=== PATIENT | female | born 1980 | race African-American/Black ===

== ENCOUNTER 2024-12-12 14:42 | Outpatient (REF) | payer MEDICARE, MEDICAID, SELFPAY ==
--- OUTSIDE RECORDS SUMMARY | 2024-12-12 14:52 | XMS_ITS | Encounter Summary ---
Author Organization [employer] Address [address] [place] [address] 7 [place] [address] Care Team Providers Care Complaint Evaluation Officer Name Role Phone JaneneSoco chavez JADE Primary Care Provider [phone] Reason for Visit * Reason Onset Date Comments CHARTPREP 12/11/2024 Encounter Details Date Type Department Care Team ([facility] st Contact Info) Description 12/11/2024 Telephone [facility] MEDICINE [address] [place], [place] [id number] Sraa Camacho [place] CHARTPREP Social History Tobacco Use Types Packs/Day Years Used Date Smoking Tobacco: Never Smokeless Tobacco: Never Depression Answer Date Recorded Patient Health Questionnaire-9 Score 12 10/06/2024 Patient Health Questionnaire-9 Score 12 10/06/2024 Last PHQ-9: Questionnaire Data Not on file 0 10/06/2024 Housing Stability Answer Date Recorded What is your housing situation today? I have get panchal 09/26/[address] you li ve. Do you have problems with any of the following? None of the above 09/26/2024 Food Insecurity Answer Date Recorded Within the past 12 months, y ou worried that your food would run out before you got money to buy more: Never True 09/26/2024 Within the past 12 months,th e food you bought just didn't last and you didn't have enough money to get more: Never True Transportation Answer Date Recorded In the past 12 months, has l ack of transportation kept you from medical appts, meetings, work or from getting things needed for daily living? No 09/26/2024 Utilities Answer Date Recorded In the past 12 months, has t he electric, gas, oil or water company threatened to shut off services in your home? No 09/26/2024 Depression Answer Date Recorded Patient Health Questionnaire-2 Score 4 10/06/2024 Internet Access Answer Date Recorded Internet Access Q1 Yes 09/26/2024 Internet Access Q2 Not on file 09/26/2024 Comments Unknown Sex and Gender Information Value Date Recorded Sex Assigned at Female 06/27/2023 2:08 PM EST Legal Sex Female 2:07 PM EST Gender Identity Female 08/28/2024 3:49 PM EDT Sexual Orientation Don't know 08/28/2024 3: 50 PM EDT documented as of this encounter Miscellaneous Notes * Telephone Encounter - Sara Camacho [place] - 12/11/2024 4:09 PM EDT Chart Prep Labs: done Images: done except 12/01/24 BI mammogram and XR ribs Referrals: Physiatry Office: [facility] [address] [facility] [address] Tel. [phone] Fax. [phone]. November 17 was pt first evaluation appt, next appt will be on12/15/24 @ 3:00pm Allergy Office: [facility] Allergy Dr. Charles (NPI# [id number]) [address] [facility] [address] Tel. [phone] Fax. [phone]. Pt needs to call allergy office to scheduled appointment. Vaccines due: Covid and Hep B Screenings: mammogram, eye exam, and foot exam Overdue care gaps: Glucose documented in this encounter Plan of Treatment Upcoming Encounters Date Type Department Care Team (Late st Contact Info) Description 02/17/2025 1:00 PM EDT Procedure Visit [facility] MEDICINE [address] [place] [address] Soco Alexis NP [address] [place] [address] documented as of this encounter Visit Diagnoses Not on filedocumented in this encounter Additional Health Concerns Assessment Noted Time PHQ-9 Depression Total Score: 12 025 3:49 PM EDT documented as of this encounter Care Teams Complaint Evaluation Officer Relationship Specialty Start Date End Date Soco Alexis NP [address] [place] [address] PCP - General Family Medicine 10/06/24 documented as of this encounter
[2024-12-12 16:16] LABS: MANUAL DIFF FLAG NO
[2024-12-12 16:19] LABS: Hematocrit 33.5 % (37.0-47.0); Hemoglobin 10.9 g/dl (12.0-16.0); Imm Gran Abs Auto 0.02 X10*3/uL (0.00-0.03); Imm Gran Pct Auto 0.4 % (0.0-0.4); Lymphocytes Absolute Auto 1.2 X10*3/uL (1.2-4.9); Mean Corpuscular HGB Conc 32.5 g/dl (31.0-35.0); Mean Corpuscular Hemoglobin 31.3 pg (27.0-33.0); Mean Corpuscular Volume 96.3 fL (80.0-98.0); NRBC Abs Auto 0.000 X10*3/uL (0.0-0.012); NRBC Pct Auto 0.0 /100WBC (0.0-0.2); Platelet Count 166 X10*3/uL (160-400); Red Blood Count 3.48 X10*6/uL (4.20-5.50); White Blood Count 4.7 X10*3/uL (4.8-10.8)
[2024-12-12 16:28] LABS: B Type Natriuretic Peptide 15 pg/mL (<100)
[2024-12-12 17:01] LABS: Alanine Aminotransferase 57 U/L (0-31); Albumin Level 4.5 g/dL (3.5-5.0); Alkaline Phosphatase 103 U/L (39-117); Anion Gap 12 (12-20); Aspartate Amino Transferase 48 U/L (5-31); Blood Urea Nitrogen 11 mg/dL (9-16); Calcium 9.9 mg/dL (8.4-10.2); Carbon Dioxide 28 mmol/L (22-29); Chloride 105 mmol/L (96-108); Estimated Glomerular Filt Rate 55; Potassium 3.6 mmol/L (3.3-5.1); Sodium 141 mmol/L (135-145); Total Protein 7.8 g/dL (6.5-8.0)
== END 2024-12-12 14:43 | disposition home or self-care (01) ==
LOC: HO.HHCL 14:42
PROVIDERS: PCP Nurse Practitioner Family
DX: I89.0 Lymphedema, not elsewhere classified (principal); R06.02 Shortness of breath
CPT/HCPCS: 36415; 80053; 83880; 85025

== ENCOUNTER 2025-02-18 13:34 | Outpatient (REF) | payer MEDICARE, MEDICAID, SELFPAY ==
--- OUTSIDE RECORDS SUMMARY | 2025-02-12 08:09 | XMS_ITS | Encounter Summary ---
Author Organization [facility] Address [address] [place] [address] Phone Care Team Providers Care Wet Milling Wheel Operator Name Role Phone Keily Maldonado EMISSION TECHNICIAN Unavailable Nico Patel MD Unavailable Stuart Saunders MD Unavailable [phone] Ibis Wilson RN Unavailable Luisa Vega Unavailable [phone] Moni Argueta RN Unavailable [phone] Soco Alexis NP Primary Care Provider [phone] Reason for Referral * Outpatient Procedure - Closed Specialty Diagnoses / Procedures Referred By Contac t Referred To Contact Diagnoses Localized edema 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 Procedures Adult Echo TTE Krysta Villagomez FNP [address] [facility] [address] [place] [address] Phone: tel: fax: [email or web address] Referral ID Status Reason Start Date Expiration Date Visits Re quested Visits Authorized [id number] Closed 01/01/2025 01/01/2026 1 1 Reason for Visit * Outpatient Procedure - Closed Specialty Diagnoses / Procedures Referred By Mike quesada Referred To Contact Diagnoses Localized edema 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 Procedures Adult Echo TTE Krysta Villagomez FNP [address] [place] [address] Phone: tel: fax: [email or web address] Referral ID Status Reason Start Date Expiration Date Visits Re quested Visits Authorized [id number] Closed 01/01/2025 01/01/2026 1 1 Encounter Details Date Type Department Care Team (Latest Contact Info) Description 02/12/2025 8:09 AM EDT - 02/12/2025 11:59 PM EDT Hospital Encounter [facility] [address] [place] [address] Krysta Villagomez FNP [address] [place] [address] [email or web address] Discharge Disposition: Home or Self Care Social History Tobacco Use Types Packs/Day Years Used Date Smoking Tobacco: Former Cigarettes 1 992 - 03/07/2023 Passive Smoke Exposure: Past Smokeless Tobacco: Never Alcohol Use Standard Drinks/Week Comments Not Currently 0 (1 standard drink = 0.6 oz pure alcohol) cannot currently drink with illness Home Health Assessment: Transportation Answer Date Recorded Lack of Transportation (Medical) No 08/14/2022 Lack of Transportation (Non-Medical) No 08/14/2022 Patient Unable or Declines to Respond No 08/14/2022 Education Answer Date Recorded Are you interested in more education? Not on pato e 08/31/2022 Are you concerned about learning? Not on file 08/31/2022 No 08/31/2022 No 08/31/2022 Food Answer Date Recorded Within the past 6 months we worried whether our food would run out before we got money to buy more. Never True 10/16/2024 Within the past 6 months the food we bought just didn't last and we didn't have enough money to get more. Never True Residential Stability Answer Date Recor ded What is your housing situation today? I have get panchal 10/16/2024 How many times have you move d in the past 12 months? Zero (I did not move) 10/16/2024 Paying for Meds Answer Date Recorded Do you have trouble paying for medicines? No 10/16/2024 Paying Utility Bills Answer Date Record ed Do you have trouble paying your heating or elect ricity bill? No 10/16/2024 Transportation Answer Date Recorded Has the lack of transportati on kept you from medical appointments or from getting medications? No 10/16/2024 Digital Access Answer Date Recorded No 10/16/2024 Yes 10/16/2024 Do you have reliable internet access at home? Ye s 10/16/2024 Do you have a device (e.g., phone, tablet, computer) with a working camera? Yes 10/16/2024 Intimate Partner Violence Answer Date R ecorded Are you denied basic needs s uch as food, clothing, or medical care? No 12/17/2024 In the past 12 months have y ou been in a relationship with a person who hurts, threatens, or tries to control you? No 12/17/2024 Are you denied basic needs s uch as food, clothing, or medical care? No 12/17/2024 In the past 12 months have y ou been in a relationship with a person who hurts, threatens, or tries to control you? 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 Please take your temperature beforehand & contact your BMT team if temp > or = 100.4F 10/17/2024 albuterol 2.5 mg /3 mL (0.083 %) nebulizer solution Take 3 mL (2.5 mg total) by nebulization every 6 (six) hours as needed for wheezing or shortness of breath/dyspnea. 120 mL 1 06/24/2024 albuterol 90 mcg/actuation inhaler Inhale 2 puffs into the lungs every 6 (six) hours as needed for wheezing. 8 g 10/21/2024 ALPRAZolam (XANAX) 2 MG tablet Take 1 tablet (2 mg total) by mouth 2 (two) times a day. May take 6 mg/day, typically takes 4 mg nightly an additional 2 mg in the daytime. 09/19/2022 belumosudil (REZUROCK) 200 mg tablet Take 1 tablet (200 mg total) by mouth 2 (two) times a day. Take with food around the same time each day. Swallow tablet whole do not cut, crush or chew with a glass of water. 60 tablet 11 02/05/2025 benzonatate (TESSALON) 100 MG capsule Take 1 capsule (100 mg total) by mouth 3 (three) times a day as needed for cough. 30 capsule 10/16/2024 budesonide (ENTOCORT EC) 3 mg 24 hr capsuleIndication s:GVHD (graft versus host disease) Take 2 capsules (6 mg total) by mouth every morning. Take 1 capsule whole and 1 capsule opened and dissolved in a small amount of water. 180 capsule 01/01/2025 dextroamphetamine -amphetamine (ADDERALL) 10 mg Tab tablet Take 10 mg by mouth 2 (two) times a day. 10/10/2024 dextroamphetamine -amphetamine (ADDERALL) 30 mg Tab tablet Take 1 tablet (30 mg total) by mouth 2 (two) times a day. 10/16/2024 doxazosin (CARDURA) 1 MG tablet Take 3 mg by mouth nightly at bedtime. fluconazole (DIFLUCAN) 200 MG tabletIndications :S/P allogeneic bone marrow transplant,Graft vs host disease,T-cell lymphoma Take 1 tablet (200 mg total) by mouth daily. 30 tablet 10/16/2024 fluticasone propion-salmetero L (ADVAIR DISKUS) 250-50 mcg/dose DISKUS Inhale 250 mcg/actuation of fluticasone into the lungs 2 (two) times a day. furosemide (LASIX) 20 MG tablet Take 1 tablet (20 mg total) by mouth daily. 30 tablet 1 12/10/2024 gabapentin (NEURONTIN) 300 MG capsule Take 1 capsule (300 mg total) by mouth 2 (two) times a day. 60 capsule 5 01/30/2025 guaiFENesin (ROBITUSSIN) 100 mg/5 mL syrup Take 10 mL (200 mg total) by mouth every 4 (four) hours as needed for congestion or cough. 07/26/2024 hydrOXYzine (ATARAX) 50 MG tablet Take 2 tablets (100 mg total) by mouth nightly at bedtime. 60 tablet 10/16/2024 ketoconazole 2 % cream APPLY TOPICALLY ONCE PER DAY FOR 14 DAYS 12/01/2024 labetaloL (TRANDATE) 100 MG tablet TAKE 1 TABLET(100 MG) BY MOUTH TWICE DAILY 60 tablet 2 07/20/2024 lumateperone (CAPLYTA) 21 mg capsule Take 2 capsules (42 mg total) by mouth daily. 06/10/2024 nortriptyline (PAMELOR) 25 MG capsuleIndication s:Nausea,Function al diarrhea Take 1 capsule (25 mg total) by mouth nightly at bedtime. 90 capsule 11/18/2024 nystatin cream Apply topically 2 (two) times a day. 30 g 12/16/2024 omeprazole (PRILOSEC) 40 MG capsule Take 1 capsule (40 mg total) by mouth daily. 06/10/2024 oxyCODONE 5 MG immediate release tablet 12/01/2024 prochlorperazine (COMPAZINE) 10 MG tabletIndications :S/P allogeneic bone marrow transplant,Graft vs host disease,T-cell lymphoma Take 0.5-1 tablets (5-10 mg total) by mouth every 6 (six) hours as needed (nausea, vomiting). 10/17/2024 ruxolitinib (JAKAFI) 5 MG tablet Take 1 tablet (5 mg total) by mouth 2 (two) times a day. 60 tablet 11 09/11/2024 sulfamethoxazole- trimethoprim (BACTRIM,SEPTRA) 400-80 mg per tablet Take 1 tablet (80 mg of trimethoprim total) by mouth daily. 30 tablet 11 08/29/2024 tirzepatide, weight loss, (ZEPBOUND) 7.5 mg/0.5 mL subcutaneous pen Inject 0.5 mL (7.5 mg total) under the skin once a week for 12 doses. 2 mL 2 02/12/2025 valACYclovir (VALTREX) 1000 MG tablet Take 1 tablet (1,000 mg total) by mouth daily. 90 tablet 3 02/28/2024 documented as of this encounter Plan of Treatment Upcoming Encounters Date Type Department Care Team (Late st Contact Info) Description 02/17/2025 Procedure Pass [address] [id number] 03/16/2025 8:00 AM EST Telemedicine [facility] [address] [place] [address], [address], [address] [place] [address] Krysta Villagomez FNP [address] [place] [address] [address] [place] [address] [email or web address] 10/19/2025 12:30 PM EDT Appointment [address] [address] Soco Alexis NP [address] [place] [address] documented as of this encounter Procedures Procedure Name Priority Date/Time Associated Diagnosis Comments TTE COMPREHENSIVE Routine 02/12/2025 8:5 6 AM EDT Localized edema 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 documented in this encounter Results * TTE COMPREHENSIVE (02/12/2025 8:56 AM EDT) Body Surface Area 2.27 m2 Height 170 cm Weight 119 kg Systolic BP 125 mmHg Diastolic BP 75 mmHg Left Atrium Dimension Anterior-Posterior 42 15 - 40 mm Aortic Valve Mean Gradient 6 mmHg Aortic Valve Time Velocity Integral 269.0 mm Aortic Valve Peak Velocity 1.6 m/s Aortic Valve Peak Gradient 10 mmHg Aortic Arch Diameter 29 mm Aortic Sinus Diameter 28 <40 mm Ascending Aorta Diameter 28 <36 mm Inferior Vena Cava Diameter 20 <21 mm Interventricular Septum Thickness 10 6 - 11 mm Left Ventricle Internal Diameter End Diastole 48 37 - 52 mm Left Ventricle Internal Diameter End Systole 31 <35 mm Left Ventricular Outflow Tract Diameter 19.0 mm LVOT VTI REST 190.0 mm Left Ventricular Outflow Tract Velocity 1.2 m/s Left Ventricular Outflow Tract Gradient at Rest 5 mmHg Left Ventricular Posterior Wall Thickness 9 6 - 11 mm Left Ventricle Ea Lateral Wave Speed 15.0 cm/s Left Ventricle Ea Septal Wave Speed 7.1 cm/s Ejection Fraction 64 50 - 75 Percent Left Ventricle A Wave Speed 67.3 cm/s Left Ventricle E Wave Speed 61.2 cm/s Pulmonary Valve Peak Velocity 1.8 m/s Pulmonary Valve Peak Gradient 12 mmHg Right Ventricle Basal Diameter 34 25 - 41 mm Raw LV EF% 58 % MV E/E' Tissue Velocity Lateral 4.08 Relative Wall Thickness 0.38 0.22 - 0.42 Left Ventricle indexed to BSA 70.0 g/m2 MV E/A ratio 0.9 MV E/e' septal 8.62 Left Ventricle E/e' Average 6.3 Aortic Valve Prosthetic Peak Gradient 10 mmHg Aortic Valve Prosthetic Mean Gradient 6 mmHg Aortic Valve Sinus Index by BSA 12 mm/m2 Aorta Sinus Index by Height 1.65 cm/m Aorta Sinus CSA index by Height 3.62 cm2/m Ascending Aorta Index 12 mm/m2 Asc Aorta CSA Index by Height 3.62 cm2/m Pulmonic Valve Prosthetic Peak Gradient 12 mmHg MGB CV AV DIMENSIONLESS INDEX (PEAK) - STRESS ECHO DOBUT - REST 0.75 Ascending Aorta Index 12 mm Aortic Sinus Index 12 mm Ascending Aorta Diameter 12 mm Aortic Valve Sinus Index 1 12 19 - 27 mm AO ASC DIAM BSA INDEX 12.33 Echo E/Ea 8.62 Left Atrial Volume Index 12 16 - 34 mL/m2 GLS -17.5 % Right Ventricle TAPSE 25 >=17 mm Right Ventricle Pulse Doppler S Wave 14.6 >=9.5 cm/s Mitral Valve Deceleration Time 183 ms Left Atrial Volume 27 mL Left Atrial Volume Index by Height 16 mL/m Right Atrium Area 10 cm2 Right Atrium Area index 4 cm2/m2 Anatomical Region Laterality Modality Heart Ultrasound Narrative 02/12/2025 1:38 PM EDT Images from the original result were not included. Normal LV size and function EF 60 to 65%. Normal diastolic function for age. Normal RV size and function. No significant valvular heart disease is seen. No cardiac cause for edema seen on this study. Left Ventricle The left ventricle is normal in size. There is normal wall thickness. There is normal left ventricular systolic function. The LV ejection fraction is 64% (calculated via the single dimension method). Average global longitudinal strain (GLS) is --17.5%. LV diastolic function appears within normal limits for age. The E wave velocity is 61.2 cm/s. The A wave velocity is 67.3 cm/s. The E/A ratio is 0.9. The E/e' septal ratio is 8.62. The E/e' lateral ratio is 4.08. The average E/e' ratio is 6.3. The MV deceleration time is 183 ms. Right Ventricle The right ventricle is normal in size. There is normal wall thickness. There is normal right ventricular systolic function. TAPSE is 25 mm. RV S' wave is 14.6 cm/s. Left Atrium The left atrium is normal in size. The left atrial volume index by BSA is 12 mL/m2. There are normal flow patterns in the pulmonary vein. Right Atrium The right atrium is normal in size. The IVC is normal in size. Mitral Valve The mitral valve appears normal. There is no mitral stenosis. There is no mitral regurgitation. Tricuspid Valve The tricuspid valve appears normal. There is no tricuspid stenosis. There is trace tricuspid regurgitation. RV systolic pressure could not be estimated due to insufficient TR Doppler envelope. Aortic Valve The aortic valve is tricuspid. There is no aortic stenosis. There is no aortic regurgitation. The visualized portions of the thoracic aorta appear normal in size. The aortic sinus diameter is 28 mm. The ascending aortic diameter is 28 mm. Pulmonic Valve The pulmonic valve appears normal. There is no pulmonic stenosis. There is trace pulmonic regurgitation. The pulmonary artery is normal. Pericardium The pericardium appears normal. General Findings The image quality was good (2). Strain performed. Technique(s) used in the evaluation: Color flow Doppler and Spectral Doppler. The predominant rhythm during the study was sinus. Comparison Findings Compared to prior TTE on 06/07/2023, IAS/IVS The interatrial septum appears normal. The interventricular septum appears normal. 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 Complications of transplanted organ, unspecified site documented in this encounter Additional Health Concerns Assessment Noted Time PHQ-2 Depression Total Score: 2 05/17/19 23 10:19 AM EST documented as of this encounter Care Teams Wet Milling Wheel Operator Relationship Specialty Start Date End Date Soco Alexis NP [address] [place] [address] PCP - General Nurse Practitioner 12/02/24 Keily Maldonado CNP [address] [place] [address] [email or web address] Nurse Practitioner Medical Oncology 02/16/22 Nico Patel MD [address] [place] [address] [address], [place] [address] [email or web address] Primary Oncologist Hematology 07/13/22 Stuart Saunders MD [address] [place] [address] Primary Oncologist Medical Oncology 01/22/23 Ibis Wilson, OLIVIA [address] [place] [id number] Primary Infusion Nurse 08/14/23 Luisa Vega [address] [place] [phone] Music Therapist 07/25/24 Moni Argueta RN [address] [place] [address] [email or web address] Nurse Navigator 08/15/24 documented as of this encounter Additional Source Comments The information contained in this document represents components of the legal health record. It is not the complete legal health record.[facility]
--- OUTSIDE RECORDS SUMMARY | 2025-02-17 13:00 | XMS_ITS | Encounter Summary ---
Author Organization [employer] Address [address] [place] [id number] Care Team Providers Care Resident In Diagnostic Radiology Name Role Phone Soco Alexis NP Primary Care Provider Reason for Referral * Imaging (Routine) - Authorized Specialty Diagnoses / Procedures Referred By Mike quesada Referred To Contact Radiology Diagnoses Breast screening Procedures BI Mammogram Screening Tomosynthesis Bilateral Soco Alexis NP [address] [place] [address] Phone: tel: fax: [facility] [address] Phone: tel: fax: Referral ID Status Reason Start Date Expiration Date V isits Requested Visits Authorized [id number] Authorized 02/17/2025 02/17/2026 1 1 * Consultation (Routine) - Pending Review Specialty Diagnoses / Procedures Referred By Mike quesada Referred To Contact Psychology Diagnoses Memory impairment Soco Alexis NP [address] [place] [address] Phone: tel: fax: Referral ID Status Reason Start Date Expiration Date Visits Requested Visits Authorized [id number] Pending Review Specialty Services Required 08/18/2026 1 1 * Consultation (Routine) - Authorized Specialty Diagnoses / Procedures Referred By Mike quesada Referred To Contact Neurology Diagnoses Memory impairment Soco Alexis NP [address] [place] [address] Phone: tel: fax: [facility] [address] [place], [place] Phone: tel: fax: Referral ID Status Reason Start Date Expiration Date Visits Requested Visits Authorized [id number] Authorized Specialty Services Required 02/17/2026 1 1 Encounter Details Date Type Department Care Team (Latest Contact Info) Description 02/17/2025 1:00 PM EDT Procedure Visit [facility] [address] [place] [address] Soco Alexis NP [address] [place] [address] Cervical cancer screening (Primary Dx); Memory impairment; Menopausal syndrome (hot flashes); 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); T-cell lymphoma (CMS/HCC) (HCC); Breast screening Social History Tobacco Use Types Packs/Day Years Used Date Smoking Tobacco: Former Cigarettes Passive Smoke Exposure: Past Smokeless Tobacco: Former Tobacco Cessation:Counseling Given: Not Answered Depression Answer Date Recorded Patient Health Questionnaire-9 [...] PM EDT documented as of this encounter Last Filed Vital Signs Vital Sign Reading Time Taken Comments Blood Pressure 130/88 02/17/2025 1:09 PM EDT Pulse 105 02/17/2025 1:09 PM EDT Temperature 36.5 C (97.7 F) 02/17/2025 1:09 PM EDT Respiratory Rate 18 02/17/2025 1:09 PM EDT Oxygen Saturation 99% 02/17/2025 1:09 PM EDT Inhaled Oxygen Concentration - - Weight 113 kg (249 lb 6 oz) 02/17/2025 1:09 PM E DT Height 167.6 cm (5' 6 ) 02/17/2025 1:09 PM EDT Body Mass Index 40.25 02/17/2025 1:09 PM EDT documented in this encounter Progress Notes * Soco Alexis NP - 02/17/2025 1:00 PM EDT Otilia Moreno is a 44 y.o. female presenting for follow up for the following conditions: - Otilia Moreno, 44-year-old female - Ongoing systemic treatment for GDH planned, awaiting infusion every 2 weeks at [facility], not yet started - History of normal Pap smear at last exam - No vaginal bleeding - No new sexual partners - Perimenopausal symptoms: amenorrhea, hot flashes, mood irritability - Severe body pain, predominantly in legs, described as aching, burning, and stabbing, worse at night and when lying down, less when standing - Restless legs at night, frequent movement due to pain - Uses gabapentin for pain, reports minimal relief - Uses Icy Hot spray for pain relief - History of hospitalization with increased leg pain during illness - Physical therapy for back, attends weekly, uncertain benefit - History of falling and weakness, physical therapist 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 Musculoskeletal: Positive for arthralgias, back pain and myalgias. Psychiatric/Behavioral: Positive for confusion, decreased concentration, dysphoric mood and sleep disturbance. The patient is nervous/anxious. BP 130/88 (BP Location: Right arm, Patient Position: Sitting, BP Cuff Size: Large adult) Pulse 105 Temp 97.7 ??F (36.5 ??C) (Oral) Resp 18 Ht 5' 6 (1.676 m) Wt 249 lb 6 oz (113 kg) BMI 40.25 kg/m?? Physical Exam Vitals reviewed. Constitutional: Appearance: She is obese. HENT: Head: Normocephalic and atraumatic. Nose: Nose normal. Eyes: Conjunctiva/sclera: Conjunctivae normal. Cardiovascular: Rate and Rhythm: Normal rate and regular rhythm. Pulmonary: Effort: Pulmonary effort is normal. Breath sounds: Normal breath sounds. Genitourinary: Vagina: No signs of injury and foreign body. Bleeding present. No erythema. Cervix: Normal. No discharge or erythema. Musculoskeletal: Cervical back: Normal range of motion and neck supple. Neurological: General: No focal deficit present. Mental Status: She is alert. - CARDIOVASCULAR: Normotensive. - SKIN: Hypopigmented areas on the edges, no concern, no masses, no lesions. - GENITOURINARY: Vaginal mucosa appears healthy and well-hydrated; cervix looks healthy, no masses,no lesions. Office Visit on 12/12/2024 Component Date Value B Type Natriuretic Pepti* 12/12/2024 15 Sodium 12/12/2024 141 Potassium 12/12/2024 3.6 Chloride 12/12/2024 105 Carbon Dioxide 12/12/2024 28 Anion Gap 12/12/2024 12 Urea Nitrogen (BUN) 12/12/2024 11 Creatinine, Serum 12/12/2024 1.09 Estimated Glomerular Joel* 12/12/2024 55 Glucose 12/12/2024 99 Calcium 12/12/2024 9.9 Bilirubin, Total 12/12/2024 0.3 Aspartate Amino Transfer* 12/12/2024 48 (H) Alanine Aminotransferase 12/12/2024 57 (H) Total Protein 12/12/2024 7.8 Albumin Level 12/12/2024 4.5 Alkaline Phosphatase 12/12/2024 103 White Blood Count 12/12/2024 4.7 (L) Red Blood Count 12/12/2024 3.48 (L) Hemoglobin 12/12/2024 10.9 (L) Hematocrit 12/12/2024 33.5 (L) Mean Corpuscular Volume 12/12/2024 96.3 Mean Corpuscular Hemoglo* 12/12/2024 31.3 Mean Corpuscular HGB Conc 12/12/2024 32.5 Red Cell Distribution Wi* 12/12/2024 14.1 Platelet Count 12/12/2024 166 Mean Platelet Volume 12/12/2024 9.8 Neutrophils Percent Auto 12/12/2024 57.8 Imm Gran Pct Auto 12/12/2024 0.4 Lymphocytes Percent Auto 12/12/2024 24.5 Monocytes Percent Auto 12/12/2024 15.0 (H) Eosinophils Percent Auto 12/12/2024 2.1 Basophils Percent Auto 12/12/2024 0.2 NRBC Pct Auto 12/12/2024 0.0 Neutrophils Absolute Auto 12/12/2024 2.7 Imm Gran Abs Auto 12/12/2024 0.02 Lymphocytes Absolute Au* 12/12/2024 1.2 Monocytes Absolute Auto 12/12/2024 0.7 Eosinophils Absolute Auto 12/12/2024 0.1 Basophils Absolute Auto 12/12/2024 0.0 NRBC Abs Auto 12/12/2024 0.000 Office Visit on 12/01/2024 Component Date Value Glucose Blood, POC 12/01/2024 170 QC Media Lot # 12/01/2024 [id number] Lot# Expiration Date 12/01/2024 103,025 Hemoglobin A1C 12/01/2024 5.7 QC Media Lot # 12/01/2024 [id number] Lot# Expiration Date 12/01/2024 10,890 Assessment & Plan Cervical cancer screening Orders: HPV High Risk with Reflex to Subtypes Pap Smear Memory impairment Orders: Referral to Neurology; Future Referral to Neuropsychology; Future Menopausal syndrome (hot flashes) 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 Pap smear obtained forroutine screening. - Pap smear sent to [facility] for analysis. Patient informed results typically take one to two weeks. - Risks and side effects: Possible mild vaginal spotting post-exam discussed. Memory impairment: - Memory impairment is multifactorial, likely related to chemotherapy, menopause, prior diagnosis of ADD, and trauma. - Diagnosis of memory impairment documented. Referral to neurology and cognitive neurology placed for further evaluation. Patient informed both teams will contact for scheduling. Menopausal symptoms (hot flashes, mood changes): - Menopausal symptoms including hot flashes and mood changes discussed. Non- hormonal and hormonal options reviewed. Patient cleared by oncology team for hormone therapy. - Prescribed low-dose combined oral contraceptive pill for management of hot flashes and mood symptoms. Advised to monitor for side effects and discontinue if mental health worsens or intolerable side effects occur. Alternative options discussed if needed. - Risks and side effects: Discussed risk of thromboembolism with estrogen- containing therapy, especially in patients over 35 who smoke or have migraine with aura. Discussed possible side effects including breast tenderness, nausea, and spotting. Bony pain and restless legs: - Bony pain and restless legs likely multifactorial; gabapentin continued for neuropathic pain. Anemia present but improved; magnesium normal. Pathologic bone changes possible due to prior fracture and oncologic history. - Physical therapy continued. Pain management services established. Offered bone density test; patient informed test may not alter management. Iron levels to be monitored as low iron may contribute to restless legs. Mammogram referral: - Mammogram referral discussed; patient prefers [facility] or [facility] over [facility]. - Referral for mammogram to be rerouted to [facility]. Team to contact patient regarding scheduling. Prescription - Combined oral contraceptive pill, low-dose, daily Risks: estrogen-related thrombosis in patients over 35 or with clotting history Side effects: breast tenderness, nausea, spotting Appointments - Referral for mammogram to [facility] (or [facility]) - Referral to neurology ([facility] or [facility]) - Referral to cognitive neurology specialist Based on our discussion, I have outlined the following instructions for you: - Your Pap smear sample has been sent for testing. You should expect the results in one to two weeks. - Be aware that you may have mild vaginal spotting after your exam or when taking your prescribed pill. Other possible side effects of your pill include breast tenderness and nausea. If you notice your mood getting worse or have side effects that are hard to handle, stop taking the pill and let your care team know. There is a small risk of blood clots with this pill, especially if you are over 35, smoke, or have certain types of migraines. - Keep taking gabapentin as you have been for nerve pain. - Continue with your physical therapy exercises. - Pain management services are in place to help you manage your pain. - You were offered a bone density test, but this test may not change your treatment plan. - Your iron levels will be checked, since low iron can make restless legs worse. Next appointment(s): - Referral for mammogram to [facility] (or [facility]) - Referral to neurology ([facility] or [facility]) - Referral to cognitive neurology specialist Thank you again for your visit, and we look forward to supporting you in your journey to better health. This note was drafted using Ambient (AI) technology. 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[facility]) Chest pain Depression with anxiety Diarrhea HUNG (dyspnea on exertion) Dysuria Episodic headache Febrile neutropenia (CMS/HCC) (CMS/HCC) Gastroesophageal reflux disease without esophagitis Herpes simplex History of uveitis HTN (hypertension) Hypoxia Chronic health problem Infectious disease Influenza B Labial lesion Menopausal vasomotor syndrome Mild intermittent asthma without complication 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) Pneumonia Pulmonary nodules Sacral insufficiency fracture with delayed healing 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[facility]) Severe sepsis ([facility]) Steroid dependent for adrenal supression T-cell lymphoma (CMS/HCC) (HCC) Transaminitis Vitamin D insufficiency Insomnia Depression Cancer (CMS/HCC) (HCC) Transplant Closed burst fracture of lumbar vertebra with delayed healing Cytopenia Type 2 diabetes mellitus with hyperglycemia, without long-term current use of insulin (HCC) Asthma Acute pain of right shoulder Chest pain varying with breathing Intertrigo Breast screening Menopausal syndrome (hot flashes) Generalized edema Encounter for immunization Impetigo Cervical cancer screening Memory impairment documented in this encounter Miscellaneous Notes * Assessment & Plan Note - Soco Alexis NP - 02/17/2025 1:00 PM EDTAssociated Problem(s): Cervical cancer screening Orders: HPV High Risk with Reflex to Subtypes Pap Smear * Assessment & Plan Note - Soco Alexis NP - 02/17/2025 1:00 PM EDTAssociated Problem(s): Memory impairment Orders: Referral to Neurology; Future Referral to Neuropsychology; Future * Assessment & Plan Note - Soco Alexis NP - 02/17/2025 1:00 PM EDTAssociated Problem(s): Menopausal syndrome (hot flashes) * Assessment & Plan Note - Soco Alexis NP - 02/17/2025 1:00 PM EDTAssociated Problem(s): 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) * Assessment & Plan Note - Soco Alexis NP - 02/17/2025 1:00 PM EDTAssociated Problem(s): T-cell lymphoma (CMS/HCC) (HCC) * Assessment & Plan Note - Soco Alexis NP - 02/17/2025 1:00 PM EDTAssociated Problem(s): Breast screening documented in this encounter Plan of Treatment Upcoming Encounters Date Type Department Care Team (Late st Contact Info) Description 03/02/2025 3:30 PM EDT Office Visit [facility] [address] [place] [address] Soco Alexis NP [address] [place] [address] Scheduled Orders Name Type Priority Associated Diagnoses Order Schedule HPV High Risk with Reflex to Subtypes Lab Routine Cervical cancer screening Ordered: 02/17/2025 Pap Smear Pathology and Cytology Routine Cervical cancer screening Ordered: 02/17/2025 BI Mammogram Screening Tomosynthesis Bilateral Imaging Routine Breast screening Expected: 02/17/2025, Expires: 04/19/2026 Scheduled Referrals Name Type Priority Associated Diagnoses Order Schedule Referral to Neurology Outpatient Referral Routine Memory impairment Expected: 02/17/2025 (Approximate), Expires: 02/17/2026 Referral to Neuropsychology Outpatient Referral Routine Memory impairment Expected: 02/17/2025 (Approximate), Expires: 08/17/2026 documented as of this encounter Visit Diagnoses Diagnosis Cervical cancer screening- Primary Screening for malignant neoplasm of the cervix Memory impairment Memory loss Menopausal syndrome (hot flashes) Symptomatic menopausal or female climacteric states 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
--- OUTSIDE RECORDS SUMMARY | 2025-02-18 17:15 | XMS_ITS | Encounter Summary ---
Author Organization [facility] Address [address] [place] [address] Phone Care Team Providers Care Sisal Picker Name Role Phone Soco Alexis DOUBLE END SEWER Unavailable [phone] Guru Glynn MD Unavailable [phone] Soco Alexis DOUBLE END SEWER Primary Care Provider Keily Maldonado SENIOR APPLICATION PROGRAMMER Unavailable Cassi CarpenterC Unavailable pnugen Azra South RN Unavailable Nico Patel MD Unavailable Stuart Saunders MD Unavailable [phone] Glenna Granados TRUCK GUARD Unavailable Rachana Otto MD Primary Care Provider [phone] Rachana Otto MD Primary Care Provider Ibis Wilson RN Unavailable Luisa Vega Unavailable Moni Argueta RN Unavailable Pcp, Unknown Primary Care Provider Soco Uriarte DOUBLE END SEWER Primary Care Provider [phone] Encounter Details Date Type Department Care Team (Late st Contact Info) Description 03/08/2023 Procedure Pass [facility], Ct Scan - [address] [address] Social History Tobacco Use Types Packs/Day Years Used Date Smoking Tobacco: Former Cigarettes S tarted: 1991 Smokeless Tobacco: Never Alcohol Use Standard Drinks/Week [...] on file 08/31/2022 No 08/31/2022 No 08/31/2022 Digital Access Answer Date Recorded No 09/26/2022 No 09/26/2022 Reliable internet access at home? Not on file 09/26/2022 Device with a working camera? 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 Wish to be (Past 1 Month) No 023 3:48 PM EDT Pao Payne RN 2. Non-Specific Active Suici jared Thoughts (Past 1 Month) No 03/08/2023 3:48 PM EDT Pao Payne , OLIVIA 6. Suicidal Behavior (Lifetime) No 3:48 PM EDT Pao Payne RN documented as of this encounter Plan of Treatment Upcoming Encounters Date Type Department Care Team (Late st Contact Info) Description 02/17/2025 Procedure Pass [address] [address] 03/16/2025 8:00 AM EST Telemedicine [facility] [address] [facility], 9th Floor, [address] [place] [address] Krysta Villagomez FNP [address] [facility] [address] [place] [address] [email or web address] 10/19/2025 12:30 PM EDT Appointment [address] [address] Soco Alexis DOUBLE END SEWER [address] [place] [address] documented as of this encounter Visit Diagnoses Not on filedocumented in this encounter Additional Health Concerns Infection Onset Date Last Indicated Resolved Time C. diff 03/13/2023 03/13/2023 04/12/2023 1:26 AM EST C. diff 05/24/2023 05/24/2023 06/23/2023 1:21 AM EST CoV-Risk Comment:2 Neg covid 06/04/2023 06/04/2023 06/05/2023 3:[address] CoV-Risk Comment:Per note documentation 06/06/2023 06/06/2023 12:50 PM EST Parainfluenza 06/06/2023 06/06/2023 06/20/2023 1:2 1 AM EST CoV-Exposed Comment:Removed via automated background process based on negative test result 06/08/2023 06/08/2023 06/11/2023 5:36 PM EST CoV-Risk Comment:Per note documentation 07/24/2023 07/24/2023 6:19 PM EDT CDiff-Risk 09/20/2023 09/20/2023 09/20/2023 5:53 PM EDT CDiff-Risk 10/01/2023 10/01/2023 10/02/2023 9:46 AM EDT Other (Comment) Comment:Ruling out norovirus, adenovirus , keep contact plus isolation flag until all negative. 10/03/2023 10/03/202310/04 8:14 AM EDT CoV-Risk Comment:Per note documentation 11/11/2023 11/11/2023 12:39 PM EDT Rhino/Entero 04/04/2024 04/04/2024 04/11/2024 1:25 AM EST CoV-Risk 05/14/2024 05/14/2024 05/25/2024 1:23 AM EST CoV-Risk Comment:Per note documentation 06/04/2024 06/04/2024 2:55 PM EST Influenza B 06/04/2024 06/07/2024 06/14/2024 1:22 AM EST CoV-Risk Comment:Per note documentation 06/07/2024 06/07/2024 12:39 PM EST CDiff-Risk 07/22/2024 07/22/2024 07/23/2024 1:38 PM EDT Influenza A 07/22/2024 07/22/2024 07/29/2024 1:21 AM EDT CoV-Risk Comment:Per note documentation 10/09/2024 10/14/2024 11:00 AM EDT Parainfluenza Comment:Adults with parainfluenza: Maintain standard precautions. See Isolation Precautions and Duration of Isolation policy in [facility] for details 10/14/2024 10/14/2024 10/21/2024 1:21 AM E DT Assessment Noted Time PHQ-2 Depression Total Score: 2 05/17/19 23 10:19 AM EST documented as of this encounter Care Teams Sisal Picker Relationship Specialty Start Date End Date Soco Alexis NP PCP - General Family Medicine 01/26/22 03/13/23 Rachana Otto MD [address] [place] [address] [email or web address] PCP - General Family Medicine 03/14/23 05/30/23 Rachana Otto MD [address] [place] [address] [place] [phone] [email or web address] PCP - General Family Medicine 05/31/23 10/20/24 Pcp, Unknown PCP - General 11/11/24 12/01/24 Soco Alexis NP [address] [place] [address] PCP - General Nurse Practitioner 12/02/24 Soco lAexis DOUBLE END SEWER 03/02/17 12/01/24 Guru Glynn MD [address] [place] [address] [address] [place] [address] [email or web address] Primary Oncologist Medical Oncology 01/24/22 05/09/23 Keily Maldonado CNP [address] [place] [address] [email or web address] Nurse Practitioner Medical Oncology 02/16/22 Cassi Carpenter PA-C [address] [place] [address] [email or web address] Physician Sustainable Development Policy Analyst Medical Oncology 03/22/22 08/14/24 Azra South, OLIVIA [address] [place] [address] PHCM Proofer [employer] 05/09/22 04/08/24 Nico Patel MD [address] [facility] [address] [place] [address] Primary Oncologist Hematology 07/13/22 Stuart Saunders MD [address] [place] [address] Primary Oncologist Medical Oncology 01/22/23 Glenna Granados TRUCK GUARD [address] [place] [address] Nurse Practitioner Medical Oncology 03/12/23 08/14/24 Ibis Wilson RN [address] [place] [address] Primary Infusion Nurse 08/14/23 Luisa Vega [address] [place] [phone] Music Therapist 07/25/24 Moni Argueta, OLIVIA [address] [place] [address] Nurse Navigator 08/15/24 documented as of this encounter Additional Source Comments The information contained in this document represents components of the legal health record. It is not the complete legal health record.[facility]
--- OUTSIDE RECORDS SUMMARY | 2025-02-18 17:15 | XMS_ITS | Encounter Summary ---
Author Organization [facility] Address [address] [place] [address] Phone Care Team Providers Care Hollow Ware Maker Name Role Phone Soco Alexis SENIOR CREDIT ANALYST Primary Care Provider [phone] Soco Alexis SENIOR CREDIT ANALYST Unavailable [phone] Paolo Collazo MD Unavailable [phone] Rachana Otto MD Primary Care Provider [phone] Paco Jean MD, MPH Unavailable + [phone] Guru Glynn MD Unavailable Soco Alexis SENIOR CREDIT ANALYST Primary Care Provider [phone] Keily Maldonado CHEF'S ASSISTANT Unavailable Cassi Carpenter-C Unavailable pnugebelén Azra South RN Unavailable Nico Patel MD Unavailable Paco Jean MD, MPH Unavailable + [phone] Ro HardinW Unavailable [email or web address] Myranda Lloyd Unavailable [email or web address] Stuart Saunders MD Unavailable [phone] Glenna Granados BUTTON TACKER Unavailable [phone] Rachana Otto MD Primary Care Provider Rachana Otto MD Primary Care Provider [phone] Ibis Wilson RN Unavailable Luisa Vega Unavailable [phone] Mnoi Argueta RN Unavailable [phone] Pcp, Unknown Primary Care Provider UnavailSoco Hodge NP Primary Care Provider [phone] Encounter Details Date Type Department Care Team (Late st Contact Info) Description 03/03/2017 Ancillary Orders [facility] Pulmonary, Allergy and Critical Care Medicine 30 [place] [address] Andrea Jackson MD, MS 10 [facility] 2nd [place] [address] [email or web address] Social History Tobacco Use Types Packs/Day Years Used Date Smoking Tobacco: Never Assessed Comments Unknown Sex and Gender Information Value Date Recorded Sex Assigned at Female 06/25/2019 7:03 PM EST Legal Sex Female 9:21 PM EDT Gender Identity Female 06/25/2019 7:03 PM EST Sexual Orientation Lesbian or Espinosa 09/18/2022 1: 58 PM EDT documented as of this encounter Plan of Treatment Upcoming Encounters Date Type Department Care Team (Late st Contact Info) Description 02/17/2025 Procedure Pass [facility] [address] [place] [address] 03/16/2025 8:00 AM EST Telemedicine [facility] FOR BONE MARROW TRANSPLANT 32 [facility], 9th Floor, [address] [place] [address] Krysta Villagomez FNP 32 [facility] [address] 9 [place] [address] [email or web address] 10/19/2025 12:30 PM EDT Appointment [facility] [address] [place] [address] Soco Alexis, SENIOR CREDIT ANALYST [address] [place] [address] documented as of this encounter Visit Diagnoses Not on filedocumented in this encounter Additional Health Concerns Infection Onset Date Last Indicated Resolved Time CoV-Risk 04/15/2020 04/15/2020 04/29/2020 1:25 AM EST CoV-Risk 08/24/2021 08/24/2021 09/04/2021 1:22 AM EDT CoV-Risk 03/22/2022 03/22/2022 04/02/2022 3:50 AM EST CoV-Risk Comment:Neg covid 05/04/2022 05/04/2022 05/05/2022 5:[address] CoV-Risk Comment:Neg covid 05/23/2022 05/23/2022 05/24/2022 6:[address] CoV-Risk 06/10/2022 06/10/2022 06/10/2022 10:2 1 PM EST COVID-19 06/10/2022 06/10/2022 07/01/2022 1:21 AM EST CoV-Risk 07/06/2022 07/06/2022 07/06/2022 7:02 AM EST CoV-Presumed Comment:Per Note Documentation 07/06/2022 07/13/2022 6:57 PM EDT CoV-Risk Comment:Per note documentation 09/12/2022 09/12/2022 10:41 PM EDT CoV-Risk Comment:Neg covid 09/18/2022 09/18/2022 09/19/2022 7:06 AM E DT C. diff 12/25/2022 12/25/2022 01/24/2023 1:21 AM EDT C. diff 03/13/2023 03/13/2023 04/12/2023 1:26 AM [...] Precautions and Duration of Isolation policy in Ellucid for details 10/14/2024 10/14/2024 10/21/2024 1:21 AM E DT documented as of this encounter Care Teams Hollow Ware Maker Relationship Specialty Start Date End Date Soco Alexis SENIOR CREDIT ANALYST PCP - General Family Medicine 03/02/17 02/24/20 Rachana Otto MD [address] [place] [address] [email or web address] PCP - General Family Medicine 02/25/20 01/25/22 Soco Alexis SENIOR CREDIT ANALYST PCP - General Family Medicine 01/26/22 03/13/23 Rachana Otto MD 30 [place] [address] [email or web address] PCP - General Family Medicine 03/14/23 05/30/23 Rachana Otto MD [address] [place] [phone] [email or web address] PCP - General Family Medicine 05/31/23 10/20/24 Pcp, Unknown PCP - General 11/11/24 12/01/24 Soco Alexis SENIOR CREDIT ANALYST [address] [place] [address] PCP - General Nurse Practitioner 12/02/24 Soco Alexis NP 03/02/17 12/01/24 Paolo Collazo MD [address] [place] [address] [email or web address] [email or web address] Provider 06/06/19 08/13/19 Paco Jean MD, MPH [address] [place] [address] [email or web address] Insurance Assigned Provider 03/12/22 07/15/22 Guru Glynn MD [address] [place] [address] [address] [place] [address] [email or web address] Primary Oncologist Medical Oncology 01/24/22 05/09/23 Keily Maldonado CNP [address] [place] [address] [email or web address] Nurse Practitioner Medical Oncology 02/16/22 Cassi Carpenter PA-C 30 [place] [address] Physician Accountant Tax Medical Oncology 03/22/22 08/14/24 Azra South, OLIVIA 10 [place] [address] PHCM Staff Home Therapy Rn 05/09/22 04/08/24 Nico Patel MD [address] [place] [address] [address] [place] [address] Primary Oncologist Hematology 07/13/22 Paco Jean MD, MPH [address] [place] [address] [email or web address] Insurance Assigned Provider 09/09/22 01/13/23 Ro Hardin, ULTRA SOUND TECHNICIAN [address] [place], [place] [email or web address] PHCM Bodybuilder 12/01/22 12/11/22 Myranda Lloyd [address] [place], [place] [email or web address] Community Township Clerk 01/16/23 01/17/23 Stuart Saunders MD [address] [place] [address] [email or web address] Primary Oncologist Medical Oncology 01/22/23 Glenna Granados FNP [address] [place] [address] [email or web address] Nurse Practitioner Medical Oncology 03/12/23 08/14/24 Ibis Wilson RN [address] [place] [phone] Primary Infusion Nurse 08/14/23 Luisa Vega [address] [place] [phone] Music Therapist 07/25/24 Moni Argueta, OLIVIA [address] [place] [address] [email or web address] Nurse Navigator 08/15/24 documented as of this encounter Additional Source Comments The information contained in this document represents components of the legal health record. It is not the complete legal health record.[facility]
--- OUTSIDE RECORDS SUMMARY | 2025-02-18 17:15 | XMS_ITS | Encounter Summary ---
Author Organization [facility] Address [address] [place] [address] Phone Care Team Providers Care Aerospace Manager Name Role Phone Soco Alexis DIRECTOR PROCESS IMPROVEMENT Unavailable [phone] Erica Keily JAVA MANAGER Unavailable Cassi CarpenterC Unavailable [email or web address] Azra South RN Unavailable Nico Patel MD Unavailable Stuart Saunders MD Unavailable [phone] Glenna Granados WIND FIELD MANAGER Unavailable Rachana Otto MD Primary Care Provider Ibis Wilson RN Unavailable Luisa Vega Unavailable Moni Argueta RN Unavailable Pcp, Unknown Primary Care Provider Unavailabl Soco Osullivan DIRECTOR PROCESS IMPROVEMENT Primary Care Provider [phone] Encounter Details Date Type Department Care Team (Late st Contact Info) Description 08/11/2023 Procedure Pass [facility], Main [place] 55 [facility], Floor 1 [place] [address] Social History Tobacco Use Types Packs/Day Years Used Date Smoking Tobacco: Former Cigarettes 1 992 - 03/07/2023 Smokeless Tobacco: Never Alcohol Use Standard Drinks/Week [...] 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 [address] 9 [place] [address] 10/19/2025 12:30 PM EDT Appointment [facility], [facility] [address] [place] [address] Soco Alexis, DIRECTOR PROCESS IMPROVEMENT 230 [place] [address] documented as of this encounter Visit Diagnoses Not on filedocumented in this encounter Additional Health Concerns Infection Onset Date Last Indicated Resolved Time CDiff-Risk 09/20/2023 09/20/2023 09/20/2023 5:53 PM EDT [...] Isolation policy in Ellucid for details 10/14/2024 10/14/202410/21/2024 1:21 AM E DT Assessment Noted Time PHQ-2 Depression Total Score: 2 05/17/19 23 10:19 AM EST documented as of this encounter Care Teams Aerospace Manager Relationship Specialty Start Date End Date Rachana Otto MD [address] [place] [address] [place] [phone] [email or web address] PCP - General Family Medicine 05/31/23 10/20/24 Pcp, Unknown PCP - General 11/11/24 12/01/24 Soco Alexis, JADE [address] [place] [address] PCP - General Nurse Practitioner 12/02/24 Soco Alexis, DIRECTOR PROCESS IMPROVEMENT 03/02/17 12/01/24 Keily Maldonado CNP 30 [place] [address] Nurse Practitioner Medical Oncology 02/16/22 Cassi Carpenter PA-C 30 [place] [address] Physician Agriculture Department Chair Medical Oncology 03/22/22 08/14/24 Azra South, OLIVIA 10 [place] [address] PHCM Photoresist Contact Printer 05/09/22 04/08/24 Nico Patel MD [address] [place] [address] Primary Oncologist Hematology 07/13/22 Stuart Saunders MD [address] [place] [address] [email or web address] Primary Oncologist Medical Oncology 01/22/23 Glenna Granados FNP [address] [place] [address] Nurse Practitioner Medical Oncology 03/12/23 08/14/24 Ibis Wilson RN [address] [place] [phone] [email or web address] Primary Infusion Nurse 08/14/23 Luisa Vega [address] [place] [phone] Music Therapist 07/25/24 Moni Argueta RN [address] [place] [address] [email or web address] Nurse Navigator 08/15/24 documented as of this encounter Additional Source Comments The information contained in this document represents components of the legal health record. It is not the complete legal health record.[facility]
--- OUTSIDE RECORDS SUMMARY | 2025-02-18 17:15 | XMS_ITS | Encounter Summary ---
Author Organization [facility] Address [address] [place] [address] Phone Care Team Providers Care Validation Consultant Name Role Phone Soco Alexis TEAMCENTER SOLUTION ARCHITECT Unavailable [phone] Erica Keily VEGETABLE LOADER MACHINE OPERATOR Unavailable Cassi CarpenterC Unavailable dylan Azra South RN Unavailable Nico Patel MD Unavailable [phone] Stuart Saunders MD Unavailable [phone] Glenna Granados MANAGER UI Unavailable Rachana Otto MD Primary Care Provider Ibis Wilson RN Unavailable Luisa Vega Unavailable Moni Argueta RN Unavailable Pcp, Unknown Primary Care Provider Unavailabl Soco Osullivan TEAMCENTER SOLUTION ARCHITECT Primary Care Provider [phone] Encounter Details Date Type Department Care Team (Late st Contact Info) Description 08/07/2023 Procedure Pass [facility], [place] [address] [facility], 6th [place] [address] Social History Tobacco Use Types Packs/Day Years [...] st Contact Info) Description 02/17/2025 Procedure Pass [facility], [facility] [address] [place] [address] 03/16/2025 8:00 AM EST Telemedicine [facility] CENTER FOR BONE MARROW TRANSPLANT 32 [facility], 9th Floor, [address] [place] [address] Krysta Villagomez FNP 32 [facility] [address] 9 [place] [address] 10/19/2025 12:30 PM EDT Appointment [facility], [facility] [address] [place] [address] Soco Alexis, TEAMCENTER SOLUTION ARCHITECT 230 [place] [address] documented as of this encounter Visit Diagnoses [...] Isolation policy in Ellucid for details 10/14/2024 10/14/202410/2110/21/2024 1:21 AM E DT Assessment Noted Time PHQ-2 Depression Total Score: 2 05/17/19 23 10:19 AM EST documented as of this encounter Care Teams Validation Consultant Relationship Specialty Start Date End Date Rachana Otto MD [address] [place] [address] [place] [phone] [email or web address] PCP - General Family Medicine 05/31/23 10/20/24 Pcp, Unknown PCP - General 11/11/24 12/01/24 Soco Alexis, TEAMCENTER SOLUTION ARCHITECT [address] [place] [address] PCP - General Nurse Practitioner 12/02/24 Soco Alexis, TEAMCENTER SOLUTION ARCHITECT 03/02/17 12/01/24 Keily Maldonado CNP 30 [place] [address] Nurse Practitioner Medical Oncology 02/16/22 Cassi Carpenter PA-C 30 [place] [address] Physician Pharmacometrician Medical Oncology 03/22/22 08/14/24 Azra South, OLIVIA [address] [place] [address] PHCM Collection Systems Modeler 05/09/22 04/08/24 Nico Patel MD [address] [place] [address] [address], [place] [address] Primary Oncologist Hematology 07/13/22 Stuart Saunders MD [address] [place] [address] [email or web address] Primary Oncologist Medical Oncology 01/22/23 Glenna Granados FNP [address] [place] [address] Nurse Practitioner Medical Oncology 03/12/23 08/14/24 Ibis Wilson RN [address] [place] [phone] [email or web address] Primary Infusion Nurse 08/14/23 Luisa Vega [address] [place] [phone] Music Therapist 07/25/24 Moni Argueta RN [address] [place] [address] [email or web address] Nurse Navigator 08/15/24 documented as of this encounter Additional Source Comments The information contained in this document represents components of the legal health record. It is not the complete legal health record.[facility]
--- OUTSIDE RECORDS SUMMARY | 2025-02-18 17:15 | XMS_ITS | Encounter Summary ---
Author Organization [facility] Address [address] [place] [address] Phone Care Team Providers Care Subway Train Driver Name Role Phone Soco Alexis GERMAN INSTRUCTOR Unavailable [phone] Paco Jean MD, MPH Unavailable [phone] Guru Glynn MD Unavailable Soco Alexis GERMAN INSTRUCTOR Primary Care Provider Keily Maldonado MANAGER FACILITY Unavailable Cassi CarpenterC Unavailable dylan Azra South RN Unavailable Nico Patel MD Unavailable Paco Jean MD, MPH Unavailable [phone] Ro HardinW Unavailable [email or web address] Myranda Lloyd Unavailable [email or web address] Stuart Saunders MD Unavailable [phone] Glenna Granados MOVER Unavailable [phone] Rachana Otto MD Primary Care Provider Rachana Otto MD Primary Care Provider [phone] Ibis Wilson RN Unavailable Luisa Vega Unavailable [phone] Moni Argueta RN Unavailable [phone] Pcp, Unknown Primary Care Provider UnavailSoco Hodge NP Primary Care Provider [phone] Encounter Details Date Type Department Care Team (Late st Contact Info) Description 06/19/2022 Procedure Pass [facility] [address] [place] [address] Social History Tobacco Use Types Packs/Day Years Used Date Smoking Tobacco: Some Days Cigarettes Started: 1991 Smokeless Tobacco: Never Alcohol Use Standard Drinks/Week Comments Not Currently 0 (1 standard drink = 0.6 oz pure alcohol) cannot currently drink with illness Comments No Sex and Gender Information Value Date Recorded Sex Assigned at Female 06/25/2019 7:03 PM EST Legal Sex Female 9:21 PM EDT Gender Identity Female 06/25/2019 7:03 PM EST Sexual Orientation Lesbian or Espinosa 09/18/2022 1: 58 PM EDT 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 file documented as of this encounter Plan of Treatment Upcoming Encounters Date Type Department Care Team (Late st Contact Info) Description 02/17/2025 Procedure Pass [address] [address] 03/16/2025 8:00 AM EST Telemedicine [facility] FOR BONE MARROW TRANSPLANT 32 [facility], 9th Floor, [address] [place] [address] Krysta Villagomez FNP 32 [facility] [address] 9 [place] [address] [email or web address] 10/19/2025 12:30 PM EDT Appointment [address] [address] Scoo Alexis, GERMAN INSTRUCTOR 230 [place] [address] documented as of this encounter Visit Diagnoses Not on filedocumented in this encounter Additional Health Concerns Infection Onset Date Last Indicated Resolved Time COVID-19 06/10/2022 06/10/2022 07/01/2022 1:21 AM EST [...] documented as of this encounter Care Teams Subway Train Driver Relationship Specialty Start Date End Date Soco Alexis NP PCP - General Family Medicine 01/26/22 03/13/23 Rachana Otto MD [address] [place] [address] [email or web address] PCP - General Family Medicine 03/14/23 05/30/23 Rachana Otto MD [address] [place] [address] [place] [address] [email or web address] PCP - General Family Medicine 05/31/23 10/20/24 Pcp, Unknown PCP - General 11/11/24 12/01/24 oSco Alexis, GERMAN INSTRUCTOR [address] [place] [address] PCP - General Nurse Practitioner 12/02/24 Soco Alexis GERMAN INSTRUCTOR 03/02/17 12/01/24 Paco Jean MD, MPH [address] [place] [address] [email or web address] Insurance Assigned Provider 03/12/22 07/15/22 Guru Glynn MD [address] [place] [address] [address] [place] [address] [email or web address] Primary Oncologist Medical Oncology 01/24/22 05/09/23 Keily Maldonado CNP 30 [place] [address] [email or web address] Nurse Practitioner Medical Oncology 02/16/22 Cassi Carpenter PA-C 30 [place] [address] [email or web address] Physician Laminator Preforms Medical Oncology 03/22/22 08/14/24 Azra South RN [address] [place] [address] [email or web address] PHCM Public Relations Supervisor 05/09/22 04/08/24 Nico Patel MD [address] [place] [address] [address] [address] [email or web address] Primary Oncologist Hematology 07/13/22 Paco Jean MD, MPH 70 [place] [address] [email or web address] Insurance Assigned Provider 09/09/22 01/13/23 Ro Hardin LCSW 10 [place], [place] [email or web address] PHC Alarm Security Or Surveillance Monitor 12/01/22 12/11/22 Myranda Lloyd [address] [place] [address] [email or web address] PHC Community Housing Grant Analyst 01/16/23 01/17/23 Stuart Saunders MD 30 [place] [address] [email or web address] Primary Oncologist Medical Oncology 01/22/23 Glenna Granados, MOVER 30 [place] [address] [email or web address] Nurse Practitioner Medical Oncology 03/12/23 08/14/24 Ibis Wilson, RN [address] [place] [phone] [email or web address] Primary Infusion Nurse 08/14/23 Luisa Vega [address] [place] [phone] Music Therapist 07/25/24 Moni Argueta RN [address] [place] [address] [email or web address] Nurse Navigator 08/15/24 documented as of this encounter Additional Source Comments The information contained in this document represents components of the legal health record. It is not the complete legal health record.[facility]
--- OUTSIDE RECORDS SUMMARY | 2025-02-18 17:15 | XMS_ITS | Encounter Summary ---
Author Organization [facility] Address [address] [place] [address] Phone Care Team Providers Care Superintendent Of Schools Name Role Phone Soco Alexis SINGE WINDER Unavailable [phone] Erica Keily ON AIR HOST Unavailable Cassi CarpenterC Unavailable dylan Azra South RN Unavailable Nico Patel MD Unavailable Stuart Saunders MD Unavailable [phone] Glenna Granados LABORER PIE BAKERY Unavailable Rachana Otto MD Primary Care Provider Ibis Wilson RN Unavailable Luisa Vega Unavailable [phone] Moni Argueta RN Unavailable [phone] Pcp, Unknown Primary Care Provider Unavailabl Soco Osullivan SINGE WINDER Primary Care Provider [phone] Encounter Details Date Type Department Care Team (Late st Contact Info) Description 08/11/2023 Procedure Pass [facility], [place] [address] [facility], 2nd [place] [address] Social History Tobacco Use Types Packs/Day Years [...] st Contact Info) Description 02/17/2025 Procedure Pass [facility], [facility] [address] [place] [address] 03/16/2025 8:00 AM EST Telemedicine [facility] FOR BONE MARROW TRANSPLANT [address] [facility], 9th Floor, [address] [place] [address] Krysta Villagomez FNP 32 [facility] [address] 9 [place] [address] 10/19/2025 12:30 PM EDT Appointment [facility], [facility] [address] [place] [address] Soco Alexis, SINGE WINDER [address] [place] [address] documented as of this encounter Visit Diagnoses [...] documented as of this encounter Care Teams Superintendent Of Schools Relationship Specialty Start Date End Date Rachana Otto MD [address] [place] [address] [place] [address] [email or web address] PCP - General Family Medicine 05/31/23 10/20/24 Pcp, Unknown PCP - General 11/11/24 12/01/24 Soco Alexis, SINGE WINDER [address] [place] [address] PCP - General Nurse Practitioner 12/02/24 Soco Alexis, SINGE WINDER 03/02/17 12/01/24 Keily Maldonado CNP 30 [place] [address] Nurse Practitioner Medical Oncology 02/16/22 Cassi Carpenter PA-C 30 [place] [address] Physician Plastics Heat Welder Medical Oncology 03/22/22 08/14/24 Azra South, OLIVIA [address] [place] [address] PHCM Propellant Charge Zone Assembler 05/09/22 04/08/24 Nico Patel MD [address] [place] [address] [place], [place] [address] Primary Oncologist Hematology 07/13/22 Stuart Saunders MD [address] [place] [address] [email or web address] Primary Oncologist Medical Oncology 01/22/23 Glenna Granados FNP [address] [place] [address] Nurse Practitioner Medical Oncology 03/12/23 08/14/24 Ibis Wilson RN [address] [place] [phone] [email or web address] Primary Infusion Nurse 08/14/23 Luisa Vega [address] [place] [phone] Music Therapist 07/25/24 Moni Argueta RN [address] [place] [address] [email or web address] Nurse Navigator 08/15/24 documented as of this encounter Additional Source Comments The information contained in this document represents components of the legal health record. It is not the complete legal health record.[facility]
--- OUTSIDE RECORDS SUMMARY | 2025-02-18 17:15 | XMS_ITS | Encounter Summary ---
Author Organization [facility] Address [address] [place] [address] Phone Care Team Providers Care Garland Maker Name Role Phone Soco Alexis VISUAL AND STOCK ASSOCIATE Unavailable Erica Keily MATRIX DRIER TENDER Unavailable Cassi CarpenterC Unavailable dyaln Azra South RN Unavailable Nico Patel MD Unavailable Stuart Saunders MD Unavailable [phone] Glenna Granados WATER PUMP OPERATOR Unavailable Rachana Otto MD Primary Care Provider [phone] Ibis Wilson RN Unavailable Luisa Vega Unavailable Moni Argueta RN Unavailable [phone] Pcp, Unknown Primary Care Provider Unavailabl Soco Osullivan VISUAL AND STOCK ASSOCIATE Primary Care Provider [phone] Encounter Details Date Type Department Care Team (Late st Contact Info) Description 10/03/2023 Procedure Pass [facility] [place], L[place] [address] [facility], 6th [place] [address] Social History Tobacco Use Types Packs/Day Years [...] before we got money to buy more. Sometimes True 024 Within the past 6 months the food we bought just didn't last and we didn't have enough money to get more. Sometimes True 09/05 Residential Stability Answer Date Recor ded What is your housing situation today? I have get sing 10/01/2023 How many times have you move d in the past 12 months? Zero (I did not move) 10/01/2023 Paying for Meds Answer Date Recorded Do you have trouble paying for medicines? No 10/01/2023 Paying Utility Bills Answer Date Record ed Do you have trouble paying your heating or elect ricity bill? Yes 10/01/2023 Transportation Answer Date Recorded Has the lack of transportati on kept you from medical appointments or from getting medications? No 10/01/2023 Digital Access Answer Date Recorded No 10/01/2023 Yes 10/01/2023 Do you have reliable internet access at home? Ye s 10/01/2023 Do you have a device (e.g., phone, tablet, computer) with a working camera? Yes 10/01/2023 Comments No Sex and Gender Information Value [...] Contact Info) Description 02/17/2025 Procedure Pass [address] [address] 03/16/2025 8:00 AM EST Telemedicine [facility] CENTER FOR BONE MARROW TRANSPLANT 32 [facility], 9th Floor, [address] [place] [address] Krysta Villagomez FNP 32 [facility] [address] 9 [place] [address] [email or web address] 10/19/2025 12:30 PM EDT Appointment [address] [address] Soco Alexis, VISUAL AND STOCK ASSOCIATE 230 [place] [address] documented as of this encounter Visit Diagnoses Not on filedocumented in this encounter Additional Health Concerns Infection Onset Date Last Indicated Resolved Time Other (Comment) Comment:Ruling out norovirus, adenovirus , keep contact plus isolation flag until all negative. 10/03/2023 10/03/202310/04 8:14 AM EDT CoV-Risk Comment:Per note documentation 11/11/2023 11/11/2023 12:39 PM EDT Rhino/Entero 04/04/2024 04/04/2024 04/11/2024 1:25 AM EST CoV-Risk 05/14/2024 05/14/2024 05/25/2024 1:23 AM EST CoV-Risk Comment:Per note documentation 06/04/2024 06/04/2024 2:55 PM EST Influenza B 06/04/2024 06/07/2024 06/14/2024 1:2 2 AM EST CoV-Risk Comment:Per note documentation 06/07/2024 [...] documented as of this encounter Care Teams Garland Maker Relationship Specialty Start Date End Date Rachana Otto MD [address] [place] [address] [place] [address] [email or web address] PCP - General Family Medicine 05/31/23 10/20/24 Pcp, Unknown PCP - General 11/11/24 12/01/24 Soco Alexis NP [address] [place] [address] PCP - General Nurse Practitioner 12/02/24 Soco Alexis NP 03/02/17 12/01/24 Keily Maldonado CNP [address] [place] [address] Nurse Practitioner Medical Oncology 02/16/22 Cassi Carpenter PA-C [address] [place] [address] Physician Rounding And Backing Machine Operator Medical Oncology 03/22/22 08/14/24 Azra South RN 10 [place] [address] PHCM [employer] Music Librarian 05/09/22 04/08/24 Nico Patel MD [address] [place] [address] [place] [address] Primary Oncologist Hematology 07/13/22 Stuart Saunders MD 30 [place] [address] Primary Oncologist Medical Oncology 01/22/23 Glenna Granados FNP 30 [place] [address] Nurse Practitioner Medical Oncology 03/12/23 08/14/24 Ibis Wilson, OLIVIA [address] [place] [phone] Primary Infusion Nurse 08/14/23 Luisa Vega [address] [place] [phone] Music Therapist 07/25/24 Moni Argueta RN 30 [place] [address] Nurse Navigator 08/15/24 documented as of this encounter Additional Source Comments The information contained in this document represents components of the legal health record. It is not the complete legal health record.[facility]
--- OUTSIDE RECORDS SUMMARY | 2025-02-18 17:15 | XMS_ITS | Encounter Summary ---
Author Organization [facility] Address [address] [place] [address] Phone Care Team Providers Care Liver Trimmer Name Role Phone Soco Alexis DESTINATION COORDINATOR Unavailable [phone] Keily Maldonado COUNTER TOP MAKER Unavailable Cassi CarpenterC Unavailable dylan Azra South RN Unavailable Nico Patel MD Unavailable Stuart Saunders MD Unavailable [phone] Glenna Granados DEVELOPING MACHINE TENDER Unavailable [phone] Rachana Otto MD Primary Care Provider Ibis Wilson RN Unavailable Luisa Vega Unavailable Moni Argueta RN Unavailable Pcp, Unknown Primary Care Provider Unavailabl Soco Osullivan DESTINATION COORDINATOR Primary Care Provider [phone] Encounter Details Date Type Department Care Team (Late st Contact Info) Description 07/28/2023 Procedure Pass [facility] [place], [place] [address] [facility], 6th [place] [address] Social History Tobacco Use Types Packs/Day Years [...] st Contact Info) Description 02/17/2025 Procedure Pass [facility], [facility] [address] [place] [address] 03/16/2025 8:00 AM EST Telemedicine [facility] FOR BONE MARROW TRANSPLANT 32 [facility], 9th Floor, [address] [place] [address] Krysta Villagomez FNP 32 [facility] [address] 9 [place] [address] 10/19/2025 12:30 PM EDT Appointment [facility], [facility] [address] [place] [address] Soco Alexis, DESTINATION COORDINATOR 230 [place] [address] documented as of this encounter Visit Diagnoses [...] documented as of this encounter Care Teams Liver Trimmer Relationship Specialty Start Date End Date Rachana Otto MD [address] [place] [address] [place] [address] [email or web address] PCP - General Family Medicine 05/31/23 10/20/24 Pcp, Unknown PCP - General 11/11/24 12/01/24 Soco Alexis, DESTINATION COORDINATOR [address] [place] [address] PCP - General Nurse Practitioner 12/02/24 Soco Alexis, DESTINATION COORDINATOR 03/02/17 12/01/24 Keily Maldonado CNP 30 [place] [address] Nurse Practitioner Medical Oncology 02/16/22 Cassi Carpenter PA-C 30 [place] [address] Physician Moderate Needs Teacher Medical Oncology 03/22/22 08/14/24 Azra South, OLIVIA [address] [place] [address] PHCM Clerk Supervisor 05/09/22 04/08/24 Nico Patel MD [address] [place] [address] [place] [address] Primary Oncologist Hematology 07/13/22 Stuart Saunders MD [address] [place] [address] [email or web address] Primary Oncologist Medical Oncology 01/22/23 Glenna Granados FNP [address] [place] [address] Nurse Practitioner Medical Oncology 03/12/23 08/14/24 Ibis Wilson RN [address] [place] [phone] [email or web address] Primary Infusion Nurse 08/14/23 Luisa Vega [address] [place] [phone] Music Therapist 07/25/24 Moni Argueta RN [address] [place] [address] [email or web address] Nurse Navigator 08/15/24 documented as of this encounter Additional Source Comments The information contained in this document represents components of the legal health record. It is not the complete legal health record.[facility]
--- OUTSIDE RECORDS SUMMARY | 2025-02-18 17:15 | XMS_ITS | Encounter Summary ---
Author Organization [facility] Address [address] [place] [address] Phone Care Team Providers Care Life Skills Worker Name Role Phone Soco Alexis COMMERCIAL GREEN BUILDING DESIGNER Unavailable [phone] Erica Keily BEFORE AND AFTER SCHOOL DAYCARE WORKER Unavailable Cassi CarpenterC Unavailable [email or web address] Azra South RN Unavailable Nico Patel MD Unavailable Stuart Saunders MD Unavailable [phone] Glenna Granados RECORD PRESS TENDER Unavailable [phone] Rachana Otto MD Primary Care Provider [phone] Ibis Wilson RN Unavailable Luisa Vega Unavailable Moni Argueta RN Unavailable Pcp, Unknown Primary Care Provider Unavailabl Soco Osullivan COMMERCIAL GREEN BUILDING DESIGNER Primary Care Provider [phone] Encounter Details Date Type Department Care Team (Late st Contact Info) Description 10/02/2023 Procedure Pass [facility] [address] [facility], 4th [place] [address] Social History Tobacco Use Types Packs/Day Years [...] st Contact Info) Description 02/17/2025 Procedure Pass [address] [address] 03/16/2025 8:00 AM EST Telemedicine [facility] FOR [facility]ONE MARROW TRANSPLANT 32 [facility], 9th Floor, [address] [place] [address] Krysta Villagomez FNP 32 [facility] [address] 9 [place] [address] [email or web address] 10/19/2025 12:30 PM EDT Appointment [address] [address] Soco Alexis, COMMERCIAL GREEN BUILDING DESIGNER 230 [place] [address] documented as of this encounter Visit Diagnoses Not on filedocumented in this encounter Additional Health Concerns Infection Onset Date Last Indicated Resolved Time CDiff-Risk 10/01/2023 10/01/2023 10/02/2023 9:46 AM EDT [...] documented as of this encounter Care Teams Life Skills Worker Relationship Specialty Start Date End Date Rachana Otto MD [address] [place] [address] [place] [address] PCP - General Family Medicine 05/31/23 10/20/24 Pcp, Unknown PCP - General 11/11/24 12/01/24 Soco Alexis COMMERCIAL GREEN BUILDING DESIGNER [address] [place] [address] PCP - General Nurse Practitioner 12/02/24 Soco Alexis COMMERCIAL GREEN BUILDING DESIGNER 03/02/17 12/01/24 Keily Maldonado CNP 30 [place] [address] Nurse Practitioner Medical Oncology 02/16/22 Cassi Carpenter PA-C [address] [place] [address] Physician Health Insurance Assessor Medical Oncology 03/22/22 08/14/24 Azra South, RN [address] [place] [address] PHC Metallographer 05/09/22 04/08/24 Nico Patel MD [address] [place] [address] 9[place] [address] [email or web address] Primary Oncologist Hematology 07/13/22 Stuart Saunders MD [address] [place] [address] Primary Oncologist Medical Oncology 01/22/23 Glenna Granados FNP [address] [place] [address] Nurse Practitioner Medical Oncology 03/12/23 08/14/24 Ibis Wilson RN [address] [place] [phone] Primary Infusion Nurse 08/14/23 Luisa Vega [address] [place] [phone] Music Therapist 07/25/24 Moni Argueta, OLIVIA [address] [place] [address] Nurse Navigator 08/15/24 documented as of this encounter Additional Source Comments The information contained in this document represents components of the legal health record. It is not the complete legal health record.[facility]
--- OUTSIDE RECORDS SUMMARY | 2025-02-18 17:16 | XMS_ITS | Encounter Summary ---
Author Organization [facility] Address [address] [place] [address] Phone Care Team Providers Care Die Set Up Worker Name Role Phone Soco Alexis TOUCH UP EDGER Unavailable Guru Glynn MD Unavailable Soco Alexis TOUCH UP EDGER Primary Care Provider Keily Maldonado GLUING CREW LEADER Unavailable Cassi Carpenter PA-C Unavailable pnugen Azra South RN Unavailable Nico Patel MD Unavailable Paco Jean MD, MPH Unavailable [phone] Ro HardinW Unavailable [email or web address] Myranda Lloyd Unavailable [email or web address] Stuart Saunders MD Unavailable [phone] Glenna Granados SCREEN TACKER Unavailable [phone] Rachana Otto MD Primary Care Provider [phone] Rachana Otto MD Primary Care Provider Ibis Wilson RN Unavailable Luisa Vega Unavailable [phone] Moni Argueta RN Unavailable [phone] Pcp, Unknown Primary Care Provider UnavailSoco Hodge TOUCH UP EDGER Primary Care Provider [phone] Encounter Details Date Type Department Care Team (Late Contact Info) Description 09/10/2022 Procedure Pass [facility], L[place] 6 55 [facility], 6th [place] [address] Social History Tobacco Use Types Packs/Day Years [...] on file 08/31/2022 No 08/31/2022 No 08/31/2022 Comments No Sex and Gender Information Value [...] Encounters Date Type Department Care Team (Late Contact Info) Description 02/17/2025 Procedure Pass [facility], [facility] [address] [place] [address] 03/16/2025 8:00 AM EST Telemedicine [facility] FOR BONE MARROW TRANSPLANT [address] [facility], 9th Floor, [address] [place] [address] Krysta Villagomez, SCREEN TACKER 32 [facility] [address] 9 [place] [address] 10/19/2025 12:30 PM EDT Appointment [facility], [facility] 30 [place] [address] Soco Alexis, TOUCH UP EDGER 230 [place] [address] documented as of this encounter Visit Diagnoses Not on filedocumented in this encounter Additional Health Concerns Infection Onset Date Last Indicated Resolved Time CoV-Risk Comment:Per note documentation 09/12/2022 09/12/2022 10:41 [...] documented as of this encounter Care Teams Die Set Up Worker Relationship Specialty Start Date End Date Soco Alexis TOUCH UP EDGER PCP - General Family Medicine 01/26/22 03/13/23 Rachana Otto MD [address] [place] [address] PCP - General Family Medicine 03/14/23 05/30/23 Rachana Otto MD [address] [place] [address] [place] [address] [email or web address] PCP - General Family Medicine 05/31/23 10/20/24 Pcp, Unknown PCP - General 11/11/24 12/01/24 Soco Alexis, JADE [address] [place] [address] PCP - General Nurse Practitioner 12/02/24 Soco Alexis TOUCH UP EDGER 03/02/17 12/01/24 Guru Glynn MD [address] [place] [address] [address] [place] [address] [email or web address] Primary Oncologist Medical Oncology 01/24/22 05/09/23 Keily Maldonado CNP 30 [place] [address] Nurse Practitioner Medical Oncology 02/16/22 Cassi Carpenter PA-C 30 [place] [address] Physician Scholastic Aptitude Test Grader Medical Oncology 03/22/22 08/14/24 Azra South, OLIVIA [address] [place] [address] PHCM Prior Authorization Nurse 05/09/22 04/08/24 Nico Patel MD [address] [place] [address] [address] [address] [email or web address] Primary Oncologist Hematology 07/13/22 Paco Jean MD, MPH [address] [place] [address] [email or web address] Insurance Assigned Provider 09/09/22 01/13/23 Ro Hardin, COMMERCIAL HOUSEKEEPER 10 [place] [address] [email or web address] PHCM Wafer Fab Operator 12/01/22 12/11/22 Myranda Lloyd [address] [place], [place] [email or web address] PHC Community Space Systems Operations Superintendent 01/16/23 01/17/23 Stuart Saunders MD 30 [place] [address] [email or web address] Primary Oncologist Medical Oncology 01/22/23 Glenna Granados, SCREEN TACKER 30 [place] [address] [email or web address] Nurse Practitioner Medical Oncology 03/12/23 08/14/24 Ibis Wilson, OLIVIA [address] [place] [phone] [email or web address] Primary Infusion Nurse 08/14/23 Luisa Vega [address] [place] [phone] [email or web address] Music Therapist 07/25/24 Moni Argueta RN 30 [place] [address] [email or web address] Nurse Navigator 08/15/24 documented as of this encounter Additional Source Comments The information contained in this document represents components of the legal health record. It is not the complete legal health record.[facility]
--- OUTSIDE RECORDS SUMMARY | 2025-02-18 17:16 | XMS_ITS | Encounter Summary ---
Author Organization [facility] Address [address] [place] [address] Phone Care Team Providers Care Wooden Fence Erector Name Role Phone Soco Alexis SHIP YARD ELECTRICAL PERSON Unavailable [phone] Paco Jean MD, MPH Unavailable [phone] Guru Glynn MD Unavailable Soco Alexis SHIP YARD ELECTRICAL PERSON Primary Care Provider Keily Maldonado STARTING GATE DRIVER Unavailable Cassi CarpenterC Unavailable dylan Azra South RN Unavailable Nico Patel MD Unavailable Paco Jean MD, MPH Unavailable [phone] Ro HardinW Unavailable [email or web address] Myranda Lloyd Unavailable [email or web address] Stuart Saunders MD Unavailable [phone] Glenna Granados ODD BUNDLE WORKER Unavailable [phone] Rachana Otto MD Primary Care Provider Rachana Otto MD Primary Care Provider [phone] Ibis Wilson RN Unavailable Luisa Vega Unavailable [phone] Moni Argueta RN Unavailable [phone] Pcp, Unknown Primary Care Provider UnavailSoco Hodge NP Primary Care Provider [phone] Encounter Details Date Type Department Care Team (Late Contact Info) Description 02/16/2022 Procedure Pass OR Admitting Dept - [facility] Department [address] [place] [address] Social History Tobacco Use Types Packs/Day Years Used Date Smoking Tobacco: Heavy Smoker Cigarettes 0.5 33.8 Started: 1991 Smokeless Tobacco: Never Comments:8-10 cigs /day Alcohol Use Standard Drinks/Week Comments Yes 3 (1 standard drink = 0.6 oz pur e alcohol) Comments No Sex and Gender Information Value [...] (Late Contact Info) Description 02/17/2025 Procedure Pass [facility] [address] [place] [address] 03/16/2025 8:00 AM EST Telemedicine [facility] 32 [facility], 9th Floor, [address] [place] [address] Krysta Villagomez, GLORY 32 [facility] [address] [place] [address] 10/19/2025 12:30 PM EDT Appointment [facility] [address] [place] [address] Soco Alexis, SHIP YARD ELECTRICAL PERSON [address] [facility] [place] [address] documented as of this encounter Visit Diagnoses Not on filedocumented in this encounter Additional Health Concerns Infection Onset Date Last Indicated Resolved Time CoV-Risk 03/22/2022 03/22/2022 04/02/2022 3:50 AM EST [...] documented as of this encounter Care Teams Wooden Fence Erector Relationship Specialty Start Date End Date Soco Alexis SHIP YARD ELECTRICAL PERSON PCP - General Family Medicine 01/26/22 03/13/23 Rachana Otto MD [address] [place] [address] [email or web address] PCP - General Family Medicine 03/14/23 05/30/23 Rachana Otto MD [address] [place] [phone] [email or web address] PCP - General Family Medicine 05/31/23 10/20/24 Pcp, Unknown PCP - General 11/11/24 12/01/24 Soco Alexis SHIP YARD ELECTRICAL PERSON 230 [place] [address] PCP - General Nurse Practitioner 12/02/24 Soco Alexis SHIP YARD ELECTRICAL PERSON 03/02/17 12/01/24 Paco Jean MD, MPH [address] [place] [address] [email or web address] Insurance Assigned Provider 03/12/22 07/15/22 Guru Glynn MD [address] [place] [address] [address] [place] [address] [email or web address] Primary Oncologist Medical Oncology 01/24/22 05/09/23 Keily Maldonado CNP 30 [place] [address] [email or web address] Nurse Practitioner Medical Oncology 02/16/22 Cassi Carpenter PA-C [address] [place] [address] [email or web address] Physician Customer Engineering Specialist Medical Oncology 03/22/22 08/14/24 Azra South, OLIVIA [address] [place] [address] [email or web address] PHCM Pharmacy Benefit Manager 05/09/22 04/08/24 Nico Patel MD [address] [place] [address] [address] [address] [email or web address] Primary Oncologist Hematology 07/13/22 Paco Jean MD, MPH [address] [place] [address] [email or web address] Insurance Assigned Provider 09/09/22 01/13/23 Ro Hardin, [address] [address] [email or web address] PHCM Forms Designer 12/01/22 12/11/22 Myranda Lloyd [address] [place] [address] [email or web address] Community Controls Engineer 01/16/23 01/17/23 Stuart Saunders MD 30 [place] [address] [email or web address] Primary Oncologist Medical Oncology 01/22/23 Glenna Granados, ODD BUNDLE WORKER 30 [place] [address] Nurse Practitioner Medical Oncology 03/12/23 08/14/24 Ibis Wilson RN [address] [place] [address] [email or web address] Primary Infusion Nurse 08/14/23 Luisa Vega [address] [place] [address] Music Therapist 07/25/24 Moni Argueta RN [address] [place] [address] [email or web address] Nurse Navigator 08/15/24 documented as of this encounter Additional Source Comments The information contained in this document represents components of the legal health record. It is not the complete legal health record.[facility]
--- OUTSIDE RECORDS SUMMARY | 2025-02-18 17:16 | XMS_ITS | Encounter Summary ---
Author Organization [facility] Address [address] [place] [address] Phone Care Team Providers Care Continuity Tester Name Role Phone Soco Alexis FRACTIONATING STILL OPERATOR Unavailable [phone] Guru Glynn MD Unavailable Soco Alexis FRACTIONATING STILL OPERATOR Primary Care Provider Keily Maldonado DYE LAB TECHNICIAN Unavailable Cassi Carpenter PA-C Unavailable pnugen Azra South RN Unavailable Nico Patel MD Unavailable Paco Jean MD, MPH Unavailable [phone] Ro HardinW Unavailable [email or web address] Myranda Lloyd Unavailable [email or web address] Stuart Saunders MD Unavailable Glenna Granados RETAIL SALESMAN Unavailable [phone] Rachana Otto MD Primary Care Provider [phone] Rachana Otto MD Primary Care Provider [phone] Ibis Wilson RN Unavailable Luisa Vega Unavailable [phone] Moni Argueta RN Unavailable [phone] Pcp, Unknown Primary Care Provider UnavailSoco Hodge FRACTIONATING STILL OPERATOR Primary Care Provider [phone] Encounter Details Date Type Department Care Team (Late st Contact Info) Description 09/19/2022 Procedure Pass [facility], Ct Scan - [address] [address] Social History Tobacco Use Types Packs/Day Years [...] Date of Assessment Author No Risk Indicated 09/19/2022 8:00 PM Johnna Kerns, OLIVIA * [place] Suicide Severity Rating Scale (Screener/Recent Self-Report) Question Answer Date of Assessment Author 1. Wish to be (Past 1 Month) No 09/19/2022 8:00 PM Johnna Kerns RN 2. Non-Specific Active Suici jared Thoughts (Past 1 Month) No 09/19/2022 8:00 PM EDT Chiara Zepeda, OLIVIA 6. Suicidal Behavior (Lifetime) No 8:00 PM EDT Johnna Zepeda, OLIVIA documented as of this encounter Plan of Treatment Upcoming Encounters Date Type Department Care Team (Late st Contact Info) Description 02/17/2025 Procedure Pass [address] [address] 03/16/2025 8:00 AM EST Telemedicine [facility] 32 [facility], 9th Floor, [address] [place] [address] Krysta Villagomez FNP 32 [facility] [address] [place] [address] [email or web address] 10/19/2025 12:30 PM EDT Appointment [address] [address] Soco Alexis, FRACTIONATING STILL OPERATOR 230 [place] [address] documented as of this encounter Visit Diagnoses Not on filedocumented in this encounter Additional Health Concerns Infection Onset Date Last Indicated Resolved Time CoV-Risk Comment:Neg covid 09/18/2022 09/18/2022 09/19/2022 7:06 [...] Time PHQ-2 Depression Total Score: 2 05/17/19 10:19 AM EST documented as of this encounter Care Teams Continuity Tester Relationship Specialty Start Date End Date Soco Alexis NP PCP - General Family Medicine 01/26/22 03/13/23 Rachana Otto MD 30 [place] [address] [email or web address] PCP - General Family Medicine 03/14/23 05/30/23 Rachana Otto MD [address] [place] [address] [place] [address] [email or web address] PCP - General Family Medicine 05/31/23 10/20/24 Pcp, Unknown PCP - General 11/11/24 12/01/24 Soco Alexis NP [address] [place] [address] PCP - General Nurse Practitioner 12/02/24 Soco Alexis NP 03/02/17 12/01/24 Guru Glynn MD [address] [place] [address] [address] [place] [address] [email or web address] Primary Oncologist Medical Oncology 01/24/22 05/09/23 Keily Maldonado CNP 30 [place] [address] [email or web address] Nurse Practitioner Medical Oncology 02/16/22 Cassi Carpenter PA-C [address] [place] [address] [email or web address] Physician Powder Truck Driver Medical Oncology 03/22/22 08/14/24 Azra South, OLIVIA [address] [place] [address] [email or web address] PHCM Excel Expert 05/09/22 04/08/24 Nico Patel MD [address] [place] [address] [email or web address] Primary Oncologist Hematology 07/13/22 Paco Jean MD, MPH [address] [place] [address] [email or web address] Insurance Assigned Provider 09/09/22 01/13/23 Ro Hardin CAUSTICISER [address] [place] [address] [email or web address] Utility Bill Complaints Investigator 12/01/22 12/11/22 Myranda Lloyd [address] [place] [address] [email or web address] PHC Community Straight Edger 01/16/23 01/17/23 Stuart Saunders MD 30 [place] [address] [email or web address] Primary Oncologist Medical Oncology 01/22/23 Glenna Granados, RETAIL SALESMAN 30 [place] [address] [email or web address] Nurse Practitioner Medical Oncology 03/12/23 08/14/24 Ibis Wilson RN 100 [place] [address] Primary Infusion Nurse 08/14/23 Luisa Vega 100 [place] [address] Music Therapist 07/25/24 Moni Argueta RN [address] [place] [address] [email or web address] g Nurse Navigator 08/15/24 documented as of this encounter Additional Source Comments The information contained in this document represents components of the legal health record. It is not the complete legal health record.[facility]
--- OUTSIDE RECORDS SUMMARY | 2025-02-18 17:16 | XMS_ITS | Encounter Summary ---
Author Organization [facility] Address [address] [place] [address] Phone Care Team Providers Care Profile Mill Operator Tape Control Name Role Phone Soco Alexis BAKER OPERATOR AUTOMATIC Unavailable [phone] Guru Glynn MD Unavailable Soco Aelxis BAKER OPERATOR AUTOMATIC Primary Care Provider Keily Maldonado BALLISTIC EXPERT Unavailable Cassi Carpenter PA-C Unavailable pnugen Azra South RN Unavailable Nico Patel MD Unavailable Paco Jean MD, MPH Unavailable [phone] Ro HardinW Unavailable [email or web address] Myranda Lloyd Unavailable [email or web address] Stuart Saunders MD Unavailable [phone] Glenna Granados SENIOR MICROSTRATEGY DEVELOPER Unavailable [phone] Rachana Otto MD Primary Care Provider [phone] Rachana Otto MD Primary Care Provider Ibis Wilson RN Unavailable Luisa Vega Unavailable [phone] Moni Argueta RN Unavailable [phone] Pcp, Unknown Primary Care Provider UnavailSoco Hodge BAKER OPERATOR AUTOMATIC Primary Care Provider [phone] Encounter Details Date Type Department Care Team (Late st Contact Info) Description 09/14/2022 Procedure Pass [facility] Imaging - RF/IR [address] [place] [address] Social History Tobacco Use Types Packs/Day Years [...] st Contact Info) Description 02/17/2025 Procedure Pass [facility] 30 [place] [address] 03/16/2025 8:00 AM EST Telemedicine [facility] 32 [facility], 9th Floor, [address] [place] [address] Krysta Villagomez, SENIOR MICROSTRATEGY DEVELOPER 32 [facility] [place] [address] 9 [place] [address] [email or web address] 10/19/2025 12:30 PM EDT Appointment [facility] 30 [place] [address] Soco Alexis, BAKER OPERATOR AUTOMATIC 230 [place] [address] documented as of this encounter Visit Diagnoses [...] documented as of this encounter Care Teams Profile Mill Operator Tape Control Relationship Specialty Start Date End Date Soco Alexis NP PCP - General Family Medicine 01/26/22 03/13/23 Rachana Otto MD [address] [place] [address] PCP - General Family Medicine 03/14/23 05/30/23 Rachana Otto MD [address] [place] [address] [place] [address] [email or web address] PCP - General Family Medicine 05/31/23 10/20/24 Pcp, Unknown PCP - General 11/11/24 12/01/24 Soco Alexis, BAKER OPERATOR AUTOMATIC [address] [place] [address] PCP - General Nurse Practitioner 12/02/24 Soco Alexis, BAKER OPERATOR AUTOMATIC 03/02/17 12/01/24 Guru Glynn MD [address] [place] [address] [address] [place] [address] [email or web address] Primary Oncologist Medical Oncology 01/24/22 05/09/23 Keily Maldonado CNP 30 [place] [address] Nurse Practitioner Medical Oncology 02/16/22 Cassi Carpenter PA-C 30 [place] [address] Physician Billet Grinder Medical Oncology 03/22/22 08/14/24 Azra South, OLIVIA 10 [place], [place] [phone] PHCM Heel Former 05/09/22 04/08/24 Nico Patel MD [address] [place] [address] [address] [place] [address] [email or web address] Primary Oncologist Hematology 07/13/22 Paco Jean MD, MPH 70 [place] [address] [email or web address] Insurance Assigned Provider 09/09/22 01/13/23 Ro Hardin LCSW 10 [place], [place] [email or web address] PHCM Oenologist 12/01/22 12/11/22 Myranda Lloyd 10 [place], [place] [email or web address] Community Sociology Research Assistant 01/16/23 01/17/23 Stuart Saunders MD [address] [place] [address] [email or web address] Primary Oncologist Medical Oncology 01/22/23 Glenna Granados FNP 30 [place] [address] [email or web address] Nurse Practitioner Medical Oncology 03/12/23 08/14/24 Ibis Wilson RN [address] [place] [phone] Primary Infusion Nurse 08/14/23 Luisa Vega 100 [place] [address] Music Therapist 07/25/24 Moni Argueta, OLIVIA [address] [place] [address] [email or web address] Nurse Navigator 08/15/24 documented as of this encounter Additional Source Comments The information contained in this document represents components of the legal health record. It is not the complete legal health record.[facility]
--- OUTSIDE RECORDS SUMMARY | 2025-02-18 17:16 | XMS_ITS | Encounter Summary ---
Author Organization [facility] Address [address] [place] [address] Phone Care Team Providers Care Resource Room Teacher Name Role Phone Soco Alexis BIN WORKER Unavailable [phone] Guru Glynn MD Unavailable [phone] Soco Alexis BIN WORKER Primary Care Provider Keily Maldonado SHIPPER/RECEIVER Unavailable Cassi Carpenter PA-C Unavailable pnugen Azra South RN Unavailable Nico Patel MD Unavailable Paco Jean MD, MPH Unavailable [phone] Ro HardinW Unavailable [email or web address] Myranda Lloyd Unavailable [email or web address] [email or web address] Stuart Saunders MD Unavailable [phone] Glenna Granados LADDERMAN Unavailable [phone] Rachana Otto MD Primary Care Provider [phone] Rachana Otto MD Primary Care Provider Ibis Wilson RN Unavailable Luisa Vega Unavailable [phone] Moni Argueta RN Unavailable [phone] Pcp, Unknown Primary Care Provider UnavailSoco Hodge BIN WORKER Primary Care Provider [phone] Encounter Details Date Type Department Care Team (Late st Contact Info) Description 08/21/2022 Documentation [facility] 32 [facility], 9th Floor, [address] [place] [address] Nico Patel MD [address] [place] [address] [email or web address] Social History Tobacco Use Types Packs/Day Years [...] Unable or Declines to Respond No 08/14/2022 Comments No Sex and Gender Information Value [...] st Contact Info) Description 02/17/2025 Procedure Pass [facility], [address] [address] 03/16/2025 8:00 AM EST Telemedicine [facility] 32 [facility], 9th Floor, [address] [place] [address] Krysta Villagomez, LADDERMAN [address] [facility] [address] [place] [address] [place] [address] [email or web address] 10/19/2025 12:30 PM EDT Appointment [facility] 30 [place] [address] Soco Alexis, BIN WORKER 230 [place] [address] documented as of this encounter Visit Diagnoses [...] documented as of this encounter Care Teams Resource Room Teacher Relationship Specialty Start Date End Date Soco Alexis BIN WORKER PCP - General Family Medicine 01/26/22 03/13/23 Rachana Otto MD 30 [place] [address] [email or web address] PCP - General Family Medicine 03/14/23 05/30/23 Rachana Otto MD [address] [place] [address] [place] [address] [email or web address] PCP - General Family Medicine 05/31/23 10/20/24 Pcp, Unknown PCP - General 11/11/24 12/01/24 Soco Alexis, BIN WORKER [address] [place] [address] PCP - General Nurse Practitioner 12/02/24 Soco Alexis BIN WORKER 03/02/17 12/01/24 Guru Glynn MD [address] [place] [address] [email or web address] Primary Oncologist Medical Oncology 01/24/22 05/09/23 Keily Maldonado CNP 30 [place] [address] Nurse Practitioner Medical Oncology 02/16/22 Cassi Carpenter PA-C 30 [place] [address] [email or web address] Physician Turner In Medical Oncology 03/22/22 08/14/24 Azra South, OLIVIA 10 [place] [address] PHCM Director Of Construction 05/09/22 04/08/24 Nico Patel MD 55 [facility] 9[place] [address] [email or web address] Primary Oncologist Hematology 07/13/22 Paco Jean MD, MPH 70 [place] [address] [email or web address] Insurance Assigned Provider 09/09/22 01/13/23 Ro Hardin, DAYCARE DIRECTOR 10 [place] [address] [email or web address] Station Inspector 12/01/22 12/11/22 Myranda Lloyd 10 [place] [address] [email or web address] Card Cutter 01/16/23 01/17/23 Stuart Saunders MD 30 [place] [address] [email or web address] Primary Oncologist Medical Oncology 01/22/23 Glenna Granados, LADDERMAN 30 [place] [address] [email or web address] Nurse Practitioner Medical Oncology 03/12/23 08/14/24 Ibis Wilson, OLIVIA [address] [place] [phone] [email or web address] Primary Infusion Nurse 08/14/23 Luisa Vega [address] [place] [phone] [email or web address] Music Therapist 07/25/24 Moni Argueta RN [address] [place] [address] [email or web address] g Nurse Navigator 08/15/24 documented as of this encounter Additional Source Comments The information contained in this document represents components of the legal health record. It is not the complete legal health record.[facility]
--- OUTSIDE RECORDS SUMMARY | 2025-02-18 17:16 | XMS_ITS | Encounter Summary ---
Author Organization [facility] Address [address] [place] [address] Phone Care Team Providers Care Delicatessen Clerk Name Role Phone Soco Alexis MAJOR ACCOUNT MANAGER Unavailable [phone] Guru Glynn MD Unavailable [phone] Soco Alexis MAJOR ACCOUNT MANAGER Primary Care Provider Keily Maldonado VEGETABLES COOK Unavailable Cassi Carpenter PA-C Unavailable [email or web address] Azra South RN Unavailable Nico Patel MD Unavailable Paco Jean MD, MPH Unavailable [phone] Ro HardinW Unavailable [email or web address] Myranda Lloyd Unavailable [email or web address] Stuart Saunders MD Unavailable [phone] Glenna Granados LOCAL CITY DRIVER Unavailable [phone] Rachana Otto MD Primary Care Provider [phone] Rachana Otto MD Primary Care Provider [phone] Ibis Wilson RN Unavailable Luisa Vega Unavailable [phone] Moni Argueta RN Unavailable [phone] Pcp, Unknown Primary Care Provider UnavailSoco Hodge MAJOR ACCOUNT MANAGER Primary Care Provider [phone] Encounter Details Date Type Department Care Team (Late st Contact Info) Description 09/19/2022 Procedure Pass [facility], Ct Scan - [address] [address] Social History Tobacco Use Types Packs/Day Years [...] 09/19/2022 8:00 PM Johnna Kerns, OLIVIA * Wilcox Suicide Severity Rating Scale (Screener/Recent Self-Report) Question [...] st Contact Info) Description 02/17/2025 Procedure Pass [address] [address] 03/16/2025 8:00 AM EST Telemedicine [facility] [address], [address], [address] [place] [address] Krysta Villagomez FNP [address] [facility] [address] [place] [address] [email or web address] 10/19/2025 12:30 PM EDT Appointment [address] [address] Soco Alexis, MAJOR ACCOUNT MANAGER [address] [place] [address] documented as of this encounter Visit Diagnoses [...] documented as of this encounter Care Teams Delicatessen Clerk Relationship Specialty Start Date End Date Soco Alexis NP PCP - General Family Medicine 01/26/22 03/13/23 Rachana Otto MD [address] [place] [address] [email or web address] PCP - General Family Medicine 03/14/23 05/30/23 Rachana Otto MD [address] [place] [address] [place] [address] [email or web address] PCP - General Family Medicine 05/31/23 10/20/24 Pcp, Unknown PCP - General 11/11/24 12/01/24 Soco Alexis NP [address] [place] [address] PCP - General Nurse Practitioner 12/02/24 Soco Alexis NP 03/02/17 12/01/24 Guru Glynn MD [address] [place] [address] [address] [place] [address] [email or web address] Primary Oncologist Medical Oncology 01/24/22 05/09/23 Keily Maldonado CNP [address] [place] [address] [email or web address] Nurse Practitioner Medical Oncology 02/16/22 Cassi Carpenter PA-C [address] [place] [address] [email or web address] Physician Salvage Worker Medical Oncology 03/22/22 08/14/24 Azra South, OLIVIA [address] [place] [address] [email or web address] PHCM Game Producer 05/09/22 04/08/24 Nico Patel MD [address] [place] [address] [email or web address] Primary Oncologist Hematology 07/13/22 Paco Jean MD, MPH [address] [place] [address] [email or web address] Insurance Assigned Provider 09/09/22 01/13/23 Ro Hardin KNURLING MACHINE OPERATOR [address] [place] [address] [email or web address] Shore Man 12/01/22 12/11/22 Myranda Lloyd [address] [place] [address] [email or web address] PHC Community Centrifugal Casting Machine Tender 01/16/23 01/17/23 Stuart Saunders MD [address] [place] [address] [email or web address] Primary Oncologist Medical Oncology 01/22/23 Glenna Granados, LOCAL CITY DRIVER [address] [place] [address] [email or web address] Nurse Practitioner Medical Oncology 03/12/23 08/14/24 Ibis Wilson RN [address] [place] [address] Primary Infusion Nurse 08/14/23 Luisa Vega [address] [place] [address] Music Therapist 07/25/24 Moni Argueta RN [address] [place] [address] [email or web address] Nurse Navigator 08/15/24 documented as of this encounter Additional Source Comments The information contained in this document represents components of the legal health record. It is not the complete legal health record.[facility]
--- OUTSIDE RECORDS SUMMARY | 2025-02-18 17:16 | XMS_ITS | Encounter Summary ---
Author Organization [facility] Address [address] [place] [address] Phone Care Team Providers Care Baffle Mounter Name Role Phone Soco Alexis AC/DC REWINDER Unavailable Keily Maldonado PLASTERER JOURNEYMAN Unavailable Cassi CarpenterC Unavailable dylan Azra South RN Unavailable Nico Patel MD Unavailable Stuart Saunders MD Unavailable [phone] Glenna Granados RETARDER OPERATOR Unavailable [phone] Rachana Otto MD Primary Care Provider Ibis Wilson RN Unavailable Luisa Vega Unavailable Moni Argueta RN Unavailable [phone] Pcp, Unknown Primary Care Provider Unavailabl Soco Osullivan AC/DC REWINDER Primary Care Provider [phone] Encounter Details Date Type Department Care Team (Late st Contact Info) Description 08/03/2023 Procedure Pass [facility] [place] [facility], 6th [place] [address] Social History Tobacco Use Types Packs/Day Years [...] st Contact Info) Description 02/17/2025 Procedure Pass [facility] [address] [place] [address] 03/16/2025 8:00 AM EST Telemedicine [facility] [address] [facility], 9th Floor, [address] [place] [address] Krysta Villagomez FNP 32 [facility] [address] [place] [address] 10/19/2025 12:30 PM EDT Appointment [facility] [address] [place] [address] Soco Alexis, AC/DC REWINDER [address] [place] [address] documented as of this encounter Visit Diagnoses [...] documented as of this encounter Care Teams Baffle Mounter Relationship Specialty Start Date End Date Rachana Otto MD [address] [place] [address] [place] [address] [email or web address] PCP - General Family Medicine 05/31/23 10/20/24 Pcp, Unknown PCP - General 11/11/24 12/01/24 Soco Alexis, AC/DC REWINDER [address] [place] [address] PCP - General Nurse Practitioner 12/02/24 Soco Alexis, AC/DC REWINDER 03/02/17 12/01/24 Keily Maldonado CNP [address] [place] [address] Nurse Practitioner Medical Oncology 02/16/22 Cassi Carpenter PA-C [address] [place] [address] Physician Cooker Syrup Medical Oncology 03/22/22 08/14/24 Azra South, OLIVIA [address] [place] [address] PHCM Broomcorn Press Feeder 05/09/22 04/08/24 Nico Patel MD [address] [place] [address] [address], [place] [address] Primary Oncologist Hematology 07/13/22 Stuart Saunders MD [address] [place] [address] [email or web address] Primary Oncologist Medical Oncology 01/22/23 Glenna Granados FNP [address] [place] [address] Nurse Practitioner Medical Oncology 03/12/23 08/14/24 Ibis Wilson RN [address] [place] [phone] [email or web address] Primary Infusion Nurse 08/14/23 Luisa Vega [address] [place] [phone] Music Therapist 07/25/24 Moni Argueta RN [address] [place] [address] [email or web address] Nurse Navigator 08/15/24 documented as of this encounter Additional Source Comments The information contained in this document represents components of the legal health record. It is not the complete legal health record.[facility]
--- OUTSIDE RECORDS SUMMARY | 2025-02-18 17:16 | XMS_ITS | Clinical Summary ---
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 Name Role Phone Keily Maldonado FREIGHT FORWARDER Unavailable Nico Patel MD Unavailable Stuart Saunders MD Unavailable [phone] Ibis Wilson RN Unavailable Luisa Vega Unavailable [phone] Moni Argueta RN Unavailable [phone] Soco Alexis NP Primary Care Provider [phone] Allergies Active Allergy Reactions Criticality Noted Date Comments Adhesive Tape-Silicones Anxiety,Dermatit is,Feeling Irritable,Hives,Itching,Pain ,Rash,Rash with Skin Desquamation,Swelling Low 05/09/2022 Allergen Tcs-Gvkja-Zogpd Bee Anaphylaxis High 08/05/2023 Amoxicillin-Pot Clavulanate Rash Medium 04/16/2020 Moxifloxacin Anaphylaxis High 05/15/2017 Azithromycin Anaphylaxis High 09/22/2016 Clindamycin Hcl Anaphylaxis High 05/15/2017 Haloperidol Extrapyramidial Sign High 09/06/2022 Cephalexin Rash Medium 04/16/2020 Latex, Natural Rubber Itching Low 05/15/2017 Shellfish Containing Products Hives Medium 06/16/2020 Venom-Yellow Jacket Anaphylaxis High 09/22/2016 Medications * This document contains information received from the source organization and may not represent a complete record from that organization. ALPRAZolam (XANAX) 2 MG tablet Take 1 tablet (2 mg total) by mouth 2 (two) times a day. May take 6 mg/day, typically takes 4 mg nightly an additional 2 mg in the daytime. 023 Active valACYclovir (VALTREX) 1000 MG tablet Take 1 tablet (1,000 mg total) by mouth daily. 90 tablet 3 024 2024 Active omeprazole (PRILOSEC) 40 MG capsule Take 1 capsule (40 mg total) by mouth daily. 025 Active lumateperone (CAPLYTA) 21 mg capsule Take 2 capsules (42 mg total) by mouth daily. 025 Active ipratropium-alb uteroL (DUONEB) 0.5-3 mg (2.5 mg base)/3 mL nebulizer solution Take 3 mL by nebulization 4 (four) times a day as needed for wheezing or shortness of breath/dyspnea. 360 mL 025 Active albuterol 2.5 mg /3 mL (0.083 %) nebulizer solution Take 3 mL (2.5 mg total) by nebulization every 6 (six) hours as needed for wheezing or shortness of breath/dyspnea. 120 mL 1 025 Active labetaloL (TRANDATE) 100 MG tablet TAKE 1 TABLET(100 MG) BY MOUTH TWICE DAILY 60 tablet 2 025 Active guaiFENesin (ROBITUSSIN) 100 mg/5 mL syrup Take 10 mL (200 mg total) by mouth every 4 (four) hours as needed for congestion or cough. 025 Active Additional Information Patient not taking.Reported on 01/30/2025 sulfamethoxazol e-trimethoprim (BACTRIM,SEPTRA ) 400-80 mg per tablet Take 1 tablet (80 mg of trimethoprim total) by mouth daily. 30 tablet 11 025 Active ruxolitinib (JAKAFI) 5 MG tablet Take 1 tablet (5 mg total) by mouth 2 (two) times a day. 60 tablet 11 Active fluticasone propionate (FLONASE) 50 mcg/actuation nasal spray 2 sprays by Nasal route daily for 6 doses. 11.1 mL Active dextroamphetami ne-amphetamine (ADDERALL) 10 mg Tab tablet Take 10 mg by mouth 2 (two) times a day. Active dextroamphetami ne-amphetamine (ADDERALL) 30 mg Tab tablet Take 1 tablet (30 mg total) by mouth 2 (two) times a day. Active hydrOXYzine (ATARAX) 50 MG tablet Take 2 tablets (100 mg total) by mouth nightly at bedtime. 60 tablet Active benzonatate (TESSALON) 100 MG capsule Take 1 capsule (100 mg total) by mouth 3 (three) times a day as needed for cough. 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 30 tablet Active fluticasone propion-salmete roL (ADVAIR DISKUS) 250-50 mcg/dose DISKUS Inhale 250 mcg/actuation of fluticasone into the lungs 2 (two) times a day. Active acetaminophen (TYLENOL) 325 mg tablet Take 2 tablets (650 mg total) by mouth every 6 (six) hours as needed for fever or pain (specific location in comments). 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 Active albuterol 90 mcg/actuation inhaler Inhale 2 puffs into the lungs every 6 (six) hours as needed for wheezing. 8 g 025 Active nortriptyline (PAMELOR) 25 MG capsuleIndicati ons:Nausea,Func tional diarrhea Take 1 capsule (25 mg total) by mouth nightly at bedtime. 90 capsule 025 Active furosemide (LASIX) 20 MG tablet Take 1 tablet (20 mg total) by mouth daily. 30 tablet 1 Active doxazosin (CARDURA) 1 MG tablet Take 3 mg by mouth nightly at bedtime. Active nystatin cream Apply topically 2 (two) times a day. 30 g Active budesonide (ENTOCORT EC) 3 mg 24 hr capsuleIndicati ons:GVHD (graft versus host disease) Take 2 capsules (6 mg total) by mouth every morning. Take 1 capsule whole and 1 capsule opened and dissolved in a small amount of water. 180 capsule 025 2024 Active ketoconazole 2 % cream APPLY TOPICALLY ONCE PER DAY FOR 14 DAYS Active oxyCODONE 5 MG immediate release tablet Active gabapentin (NEURONTIN) 300 MG capsule Take 1 capsule (300 mg total) by mouth 2 (two) times a day. 60 capsule 5 Active belumosudil (REZUROCK) 200 mg tablet Take 1 tablet (200 mg total) by mouth 2 (two) times a day. Take with food around the same time each day. Swallow tablet whole do not cut, crush or chew with a glass of water. 60 tablet 11 025 Active tirzepatide, weight loss, (ZEPBOUND) 7.5 mg/0.5 mL subcutaneous pen Inject 0.5 mL (7.5 mg total) under the skin once a week for 12 doses. 2 mL 2 025 2024 Active belumosudil (REZUROCK) 200 mg tablet Take 1 tablet (200 mg total) by mouth 2 (two) times a day. Take with food around the same time each day. Swallow tablet whole do not cut, crush or chew with a glass of water. 60 tablet 11 024 2024 Discontinued tirzepatide, weight loss, (ZEPBOUND) 5 mg/0.5 mL subcutaneous pen Inject 0.5 mL (5 mg total) under the skin once a week for 4 doses. Start after completing 4 weeks of Zepbound 2.5 mg injection weekly 2 mL 025 2024 Discontinued(R eorder) clotrimazole (LOTRIMIN) 1 % cream Apply topically 2 (two) times a day for 14 days. 113 g 025 2024 belumosudil (REZUROCK) 200 mg tablet Take 1 tablet (200 mg total) by mouth 2 (two) times a day. Take with food around the same time each day. Swallow tablet whole do not cut, crush or chew with a glass of water. 60 tablet 11 025 2024 Discontinued tirzepatide, weight loss, (ZEPBOUND) 5 mg/0.5 mL subcutaneous pen Inject 0.75 mL (7.5 mg total) under the skin once a week for 8 doses. 3 mL 1 025 2024 Discontinued Active Problems Patient Care Coordination No te Formatting of this note migh t be different from the original. 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 [facility] ICU 05/2024 w/ multifocal PNA w/ influenza A & asthma exacerbation[place] [facility] [place] B infection w/asthma exacerbation. [facility] / -7for asthma exacerbation w/ unrevealing infectious w/u, treated w inhalers and steroids. Re-presented 10/13 to [facility] ED on 10/13 w/ increased dyspnea/orthopnea, cough, chest pain, and fevers (102.5). Started on cefepime (10/13-10/15) & SoluMedrol 125 mg IV x1. [place] [facility] Doxycyline started 10/13 for empiric CAP coverage. On 10/14, full RVP (+) for parainfluenza. NC CT chest--(10/14) w/ new GGOs b/l LL and lingula. Symptoms likely 2/2 viral URI w/ concurrent asthma exacerbation. Fungal markers negative. 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 S/p treatment-dose Acyclovir. Now on valtrex ppx. - continue to monitor sx's #ID prophylaxis: - VZV: Valtrex 1000 mg daily - Fungal: fluconazole 200 mg daily - PCP: Bactrim SS daily - CMV: both sero-reactive D/R. 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 [facility] ICU 05/2024 w/ multifocal PNA w/ influenza A & asthma exacerbation. [facility] [place] influenza B infection w/asthma exacerbation. [facility] 10/09 -or asthma exacerbation w/ unrevealing infectious w/u, treated w inhalers and steroids. Re-presented 10/13 to [facility] ED on 10/13 w/ increased dyspnea/orthopnea, cough, chest pain, and fevers (102.5). Started on cefepime & SoluMedrol 125 mg IV x1. [place] [facility] Doxycyline started 10/13 for empiric CAP coverage. On 10/14, full RVP (+) for parainfluenza. [place] CT chest--(10/14) w/ new GGOs b/l LL and lingula. 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 S/p treatment-dose Acyclovir. Now on valtrex ppx. - continue to monitor sx's #ID prophylaxis: - VZV: Valtrex 1000 mg daily - Fungal: fluconazole 200 mg daily - PCP: Bactrim SS daily - CMV: both sero-reactive D/R. 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 Rhinovirus 04/2024. Admitted to [facility] ICU late May 2024 w/subsequent [facility] [place] for multifocal PNA w/ influenza A infection w/ asthma exacerbation. [place] [facility] [place] for influenza B infection w/asthma exacerbation. Recent admitted to [facility] 10/09 for asthma exacerbation w/ unrevealing infectious w/u, for which pt received inhalers and steroids.. Discharged 10/11, but re-presented to [facility] ED on 10/13 w/ increased dyspnea/orthopnea, cough, chest pain, and fevers (101.2F at home, 102.5F in ED). Bld cx's drawn x2, limited RVP (-) for Flu A, Flu B, & Covid-19. She was started on cefepime & received SoluMedrol 125 mg IV x1. CXR (10/13) showed low b/l lung volumes w/bibasilar bronchovascular crowding. [place] [facility] exam notable for diffuse expiratory wheezes & ongoing productive cough. Doxycyline started 10/13 for empiric CAP coverage. On 10/14, full RVP (+) for parainfluenza. DDx likely viral URI w/ concurrent asthma exacerbation, but also includes additional infection (bacterial PNA, PJP [though pt has been on Bactrim], and fungal) and l PE (less likely given symptoms improvement w/ nebs, steroids, and abx). - Send sputum culture & obtain NC CT chest--ILD imaging focus today 10/14 - Send IGG subclasses today 10/14 given repeat viral URI's in an immunocompromised patient - Continue cefepime 2g IV q8h (D1=10/13) - Consider dc'ing tomorrow 10/[address] chest results and if bld cx's w/ no growth x48H - Doxycycline 100 mg PO BID x5 days (10/14-10/18) for possible CAP - F/u bld cx's x2 from 10/13--NGTD - F/u PJP culture, MRSA screen, serum 1-3 BD glucan & galactomannan (sent 10/13) - If HDUS, start vancomycin IV for c/f MRSA PNA - Asthma management as noted elsewhere - Consider CT Chest Angio--PE protocol pending sx trajectory - Culture Q24H if febrile #Labial lesions: 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 S/p treatment-dose Acyclovir. Now on valtrex ppx. - continue to monitor sx's #ID prophylaxis: - VZV: Valtrex 1000 mg daily - Fungal: fluconazole 200 mg daily - PCP: Bactrim SS daily - CMV: both sero-reactive D/R. 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 Leukopenia suggests viral trigger for asthma exacerbation. Cxr and procalcitonin reassuring against bacterial pneumonia. Intermittent supplemental oxygen requirement, mostly while sleeping. - wean oxygen as able, recommend formal sleep study as outpatient -Continue ipratropium/levalbuterol, 4 times daily -levalbuterol as needed - Received Solu-Cortef in the ED, will continue prednisone 40 mg daily for additional 4 days - Check respiratory PCR viral panel, strep/Legionella antigen negative, MRSA PCR pending - follow up Blood cultures Assessment & Plan (10/09/2024 2:59 PM EDT): -Presented to the ED with complaints of worsening shortness of breath, persistent cough and wheezing without significant improvement at home on home nebulizers -Underlying history of asthma as well as pulmonary sarcoid, 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 -No increased oxygen requirements at this time, continues to have intermittent cough episodes that cause significant shortness of breath, persistent wheezing. -Afebrile at this time, no evidence of pneumonia on CXR. -COVID-19, influenza A and B are negative. Plan: Continue DuoNebs, 4 times daily Albuterol as needed Received Solu-Cortef in the ED, will continue prednisone 40 mg daily for additional 4 days Check respiratory PCR viral panel, strep/Legionella antigen, respiratory cultures Blood cultures ordered and pending Check Pro-Leighton Will observe off antibiotics at this time pending further infectious workup above Adrenal insufficiency 07/22/2024 Overview (07/22/2024): s/p 4 week taper of steroids for pancreatitis / colitis with prior lymphoma treatment. Required stress dosed steroids for hypotension x1 on 07/24. Khurram stim c/w adrenal insufficiency (cortisol 0.4 to 10.7) - Off prednisone Assessment & Plan (07/25/2024 1:12 PM EDT): S/p 4 week taper of steroids for pancreatitis / colitis with prior lymphoma treatment. Required stress dosed steroids for hypotension x1 on 07/24. Khurram stim c/w adrenal insufficiency (cortisol 0.4 to 10.7) on 08/2023, though Pt self-d/c'd steroids 02/2024. - Remains off prednisone - Consider stress-dosed steroids if HDUS or ill-appearing Assessment & Plan (07/24/2024 4:04 PM EDT): S/p 4 week taper of steroids for pancreatitis / colitis with prior lymphoma treatment. Required stress dosed steroids for hypotension x1 on 07/24. Khurram stim c/w adrenal insufficiency (cortisol 0.4 to 10.7) on 08/2023, though Pt self-d/c'd steroids 02/2024. - Remains off prednisone - Consider stress-dosed steroids if HDUS or ill-appearing - Prednisone 20 mg PO QD x 3 days Assessment & Plan (07/23/2024 2:47 PM EDT): S/p 4 week taper of steroids for pancreatitis / colitis with prior lymphoma treatment. Required stress dosed steroids for hypotension x1 on 07/24. Khurram stim c/w adrenal insufficiency (cortisol 0.4 to 10.7) on 08/2023, though Pt self-d/c'd steroids 02/2024. - Remains off prednisone - Consider stress-dosed steroids if HDUS or ill-appearing - Prednisone 20 mg PO QD x 3 days Assessment & Plan (07/22/2024 7:08 PM EDT): S/p 4 week taper of steroids for pancreatitis / colitis with prior lymphoma treatment. Required stress dosed steroids for hypotension x1 on 07/24. Khurram stim c/w adrenal insufficiency (cortisol 0.4 to 10.7) on 08/2023, though Pt self-d/c'd steroids 02/2024. - Remains off prednisone - Consider stress-dosed steroids if HDUS or ill-appearing Labial lesion 07/22/2024 Chest pain 07/22/2024 Assessment & Plan (07/25/2024 1:12 PM EDT): On 07/22, reported sharp, 5/10, L-sided chest pain; denied chest pain on 07/23. Assessment & Plan (07/24/2024 4:04 PM EDT): On 07/22, reported sharp, 5/10, L-sided chest pain; denied chest pain on 07/23. Assessment & Plan (07/23/2024 2:47 PM EDT): On 07/22, reported sharp, 5/10, L-sided chest pain; denied chest pain on 07/23. Assessment & Plan (07/22/2024 7:08 PM EDT): On 07/22, PT reported sharp, 5/10 L-sided chest pain associated w/ cough. Pain reproducible on exam. EKG non-ischemic. STAT troponin sent. Suspect likely costochondritis 2/2 cough, as noted elsewhere. - Follow-up troponin - Cough management as noted elsewhere Known medical problems 06/09/2024 Assessment & Plan (06/09/2024 3:42 PM EST): #Anxiety/Depression/PTSD/Bipolar/ Panic Attacks Was followed by Psychiatry SERVICE ESTABLISHMENT ATTENDANT Jenn Correa closely for ~20years with stable psych regimen. She has moved and connected Vicki to a new provider for medication management and she also has a therapist she sees outpt. - cont home caplyta 42mg daily - Hydroxyzine 100mg nightly - Prazosin 2mg nightly - Xanax 2mg TID (per SAFETY INSTRUCTOR script); reports she takes this nightly IN ADDITION to clonazepam 0.5mg nightly - consider SW if needed this admission # diarrhea 2/2 mild duodenitis/colitis: - budesonide 5mg daily - immodium PRN # Back pain- Has an insufficiency fracture of her sacrum on steroids and osteonecrosis, s/p Reclast injection Jan 2024. Vitamin D 34. 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 Saw Ortho on 04/16/24 suspecting majority of pain is coming from her lumbar spine/SI joint. Recommended she continue working on weight loss- goal of 245 lbs - due for outpt f/u 3 months with repeat xrays - PRN tylenol, lidocaine patch # AI hx: Required 4 week taper of steroids for pancreatitis/colitis with prior lymphoma treatment. Has required stress dosed steroids for hypotension. +Khurram stim. Off prednisone since February 2024. 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 She developed diarrhea/loose stool and was admitted for workup. Initiated budesonide empirically for high concern of GVHD. C Diff PCR negative 10/01. EGD/flex sig 10/01: endoscopically unremarkable, path noted mild duodenitis & colitis, negative for GVHD and CMV staining.Has liver GVHD and drop in counts is GVHD. Managed on tacro taper, jakafi, and added rezurock as of January 2024. Off cellcept since August 2023; and off topicals for skin - cont tacro 1mg QAM and 0.5mg QPM; last tapered 06/03 - cont ruxolitinib 5 mg BID - cont rezurock 200mg BID - cont budesonide 6 mg daily Assessment & Plan (06/08/2024 11:43 AM EST): #GVHD: Grade 2 aGVHD Skin >50% BSA (Face, Trunk, chest, arms, palms, feet) improving. She developed diarrhea/loose stool and was admitted for workup. DDx includes infectious colitis vs GI GVHD. Initiated budesonide empirically for high concern of GVHD. C Diff PCR negative 10/01. EGD/flex sig 10/01: endoscopically unremarkable, path noted mild duodenitis & colitis, negative for GVHD and CMV staining.Has liver GVHD and drop in counts is GVHD. Need to lower steroids so will start Rezurock if approved by insurance. Side effects including increase in infection outlined to patient. Tacro 1 mg QAM and 0.5mg QPM BID on last tapered 06/03/24 OFF Cellcept 09/03 OFF topicals, just moisturizing BID Ruxolitinib 5 mg BID (started 08/29) Omeprazole 40 mg Daily Rezurock 200 mg BID as she is on omeprazole (01/27/24) Budesonide to 6 mg daily Altered mental status 06/05/2024 Assessment & Plan (06/05/2024 4:00 AM EST): Multifactorial, secondary to metabolic encephalopathy +/- infectious encephalopathy VS other CT head results reviewed Frequent neurochecks Hypoxia 06/05/2024 Assessment & Plan (06/09/2024 3:42 PM EST): #Hypoxia due to Influenza B: #?Asthma Exacerbation: Presented to OSH with fever, cough, SOB, headache, N/V and found to have Influenza B. She was started on Tamiflu in ED. O2 saturation on initial presentation 80% on RA, required 2L to maintain O2 sat > 92%. [place] [facility] satting 98% on 3L NC. Exam notable for diffuse expiratory wheeze. CXR is clear with no evidence of pulmonary edema or lobar consolidation. Symptoms are likely explained by Flu B exacerbating underlying asthma. CT PE w/o e/o PE, does show new bilateral lobe PNA. RVP with persistent +flu B - if worsening hypoxia noted, may consider resuming antibiotics as will not mount fever while on high dose steroids - low risk pulse ox, supplemental O2 to keep SpO2 >90% - cont duonebs q4hr; PRN albuterol - robitussin ER, tessalon Assessment & Plan (06/08/2024 11:43 AM EST): #Hypoxia due to Influenza B: #?Asthma Exacerbation: Presented to OSH with fever, cough, SOB, headache, N/V and found to have Influenza B. She was started on Tamiflu in ED. O2 saturation on initial presentation 80% on RA, required 2L to maintain O2 sat > 92%. [place] [facility] satting 98% on 3L NC. Exam notable for diffuse expiratory wheeze. CXR is clear with no evidence of pulmonary edema or lobar consolidation. Symptoms are likely explained by Flu B exacerbating underlying asthma, but will rule out PE as a contributor and look for viral co-infections as outlined above. - Supportive care: --- Duonebs Q4H today, then PRN --- Home albuterol inhaler 2 puffs q2 PRN --- Robitussin and Tessalon perles for cough --- O2 sats 92% on 2-3L Assessment & Plan (06/07/2024 10:22 PM EST): #Hypoxia due to Influenza B: #?Asthma Exacerbation: Presented to OSH with fever, cough, SOB, headache, N/V and found to have Influenza B. She was started on Tamiflu in ED. O2 saturation on initial presentation 80% on RA, required 2L to maintain O2 sat > 92%. [place] [facility] is satting 98% on 3L NC. Exam notable for diffuse expiratory wheeze. CXR is clear with no evidence of pulmonary edema or lobar consolidation. Symptoms are likely explained by Flu B exacerbating underlying asthma, but will rule out PE as a contributor and look for viral co-infections as outlined above. - obtain CT PE as above - send extended respiratory viral panel - Supportive care: --- Duonebs Q4H today, then PRN --- Home albuterol inhaler 2 puffs q2 PRN --- Robitussin and Tessalon perles for cough --- O2 sat Acute respiratory failure with hypoxia Influenza B 06/04/2024 Assessment & Plan (06/07/2024 10:22 PM EST): See above - continuing tamiflu Assessment & Plan (06/05/2024 4:00 AM EST): -Continue Oseltamivir -Supportive care -Oxygen supplementation, wean as tolerated -ABG and CXR as clinically indicated Assessment & Plan (06/04/2024 3:18 PM EST): - treating with oseltamivir - supportive care - close monitoring of respiratory status Sacral insufficiency fracture with delayed heali ng 01/18/2024 Anal or rectal pain 08/07/2023 Assessment & Plan (08/14/2023 7:41 AM EDT): #Susanna-anal/rectal pain with induration c/f fistula/abscess Chemotoxicities include diarrhea. Patient c/o worsening susanna-anal/rectal pain especially around times of having bowel movements but now constant 10/10 pain. On exam, skin around susanna-anal area is intact and no notable lesions but notable for induration and tenderness to palpation without palpable masses/fluctuance. Recent colonoscopy 06/18/[address] pelvis (08/06) unremarkable. 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 Some improvement in symptoms on 08/11 with MRI pelvis reassuringly without perianal/perirectal fistula, sinus tract, or abscess. - Sitz bath as tolerated - Nifedipine topical cream around the anus TID - do not go inside the rectum - to help with her hypertonicity/ spasm pain - Lidocaine topical jelly q1h PRN for mild pain - PRN Dilaudid IV/PO q3h - Bowel regimen to promote soft stools - Hydration, Metamucil, Miralax - PRN MOM - Avoid Senna and Imodium Elevated blood pressure read ing without diagnosis of hypertension 08/05/2023 Assessment & Plan (10/05/2023 9:52 AM EDT): #HTN Patient with intermittent elevated BP readings as high as 173/96 w/ intermittent chronic headaches. Attempted to initiate amlodipine 5mg on 10/03, but pt declined d/t prior chest discomfort. - Monitor BPs and thrombocytopenia - Consider starting labetalol if needed for uncontrolled HTN. Assessment & Plan (08/13/2023 10:40 AM EDT): Noted uptrending of BP starting 08/02 possible related to Tacrolimus. On 08/03 patient had HTN up to 192/104 with blood products and mild intermittent baseline headaches. Neuro exam intact. CTH assuring. BP improved with Lasix and spot dose Labetalol. Started Amlodipine on 08/04 with improved pressures. - Amlodipine 5 mg PO daily - Consider spot dose of Labetalol 100 mg PRN for SBP>/160 Episodic headache 08/04/2023 Assessment & Plan (08/14/2023 7:40 AM EDT): Recurrent intermittent headaches x2 weeks. No visual or neurological deficits. Symptoms c/w tension vs. migraine headaches. CT head negative x3 (07/27, 08/02, 08/11). Headaches resolved at this time ___. - Low threshold for CT head if worsening SNYDER +/- neurological changes - Tylenol/Dilaudid PRN - Magnesium supplementation Adrenal insufficiency 07/25/2023 Assessment & Plan (10/16/2024 7:44 AM EDT): s/p 4 week taper of steroids for pancreatitis / colitis with prior lymphoma treatment. Required stress dosed steroids for hypotension x1 on 07/24. Was weaned off prednisone recently and Bps have been holding study so far bit will continue to monitor. Repeat khurram stim (08/06/23) c/w AI(cortisol 0.4 to 10.7) - CTM BP - consider repeating khurram stim in coming days given recent steroid usage for asthma exacerbations Assessment & Plan (10/15/2024 7:11 AM EDT): s/p 4 week taper of steroids for pancreatitis / colitis with prior lymphoma treatment. Required stress dosed steroids for hypotension x1 on 07/24. Was weaned off prednisone recently and Bps have been holding study so far bit will continue to monitor. Repeat khurram stim (08/06/23) c/w AI(cortisol 0.4 to 10.7) - CTM BP - consider repeating khurram stim in coming days given recent steroid usage for asthma exacerbations Assessment & Plan (10/14/2024 1:35 PM EDT): s/p 4 week taper of steroids for pancreatitis / colitis with prior lymphoma treatment. Required stress dosed steroids for hypotension x1 on 07/24. Was weaned off prednisone recently and Bps have been holding study so far bit will continue to monitor. Repeat khurram stim (08/06/23) c/w AI(cortisol 0.4 to 10.7) - CTM BP - consider repeating khurram stim in coming days given recent steroid usage for asthma exacerbations Assessment & Plan (10/05/2023 9:52 AM EDT): Hx of 4 week taper of steroids for pancreatitis/colitis r/t previous lymphoma treatment. Subsequently developed hypotension, workup c/w adrenal insufficiency (cortisol 0.4 to 10.7) so continues on low-dose prednisone 5 mg daily, which has been replaced by higher doses recently due to skin GVHD as above. - Prednisone as above; goal to ultimately taper back to home dose of 5 mg daily - If hemodynamically unstable, will need stress dose steroids Assessment & Plan (08/10/2023 10:26 AM EDT): Patient hypotensive w/ BP 80s/50s 07/23-07/24 with fevers (tmax 104.2). Mild tachycardia. Lactate flat. Extremities warm. GEORGE w/ rise in serum creatinine to 1.3. Patient asymptomatic. Ddx includes anemia, infection, medication/drug, hypovolemia. Hgb > 7. Possible RLL PNA, but noted on previous imaging. Minimal improvement w/ 3L IVF and mIVF started. Of note, patient completed 4 week taper of steroids (started on prednisone 100 mg daily w/ dose decrease by 20 or 10 mg every 7 days) for pancreatitis/colitis r/t previous lymphoma treatment. C/f adrenal insufficiency causing hypotension due to recent prolonged steroid use. S/p SoluMedrol 100mg x1 07/24. Defered broadening antibiotics w/out clear infectious etiology and patient not neutropenic. 4 AM Khurram stim test while on prednisone 5 mg daily c/w adrenal insufficiency (cortisol 0.4 to 10.7) so continued on prednisone. - Prednisone 5 mg PO daily (last tapered 07/29) - If hemodynamically unstable, will need stress dose steroids Severe sepsis 06/06/2023 Assessment & Plan (06/05/2024 4:00 AM EST): Secondary to superimposed bacterial pneumonia in the setting of immunosuppression and influenza B VS other. -Received fluid bolus in ED -Blood cultures drawn, results pending -Empiric anti-microbials; meropenem and vancomycin -Trend lactic acid, WBC -IV fluid resuscitation -Vasopressors as needed for refractory hypotension -Check procalcitonin Assessment & Plan (06/04/2024 3:18 PM EST): - is certainly possible all of her symptoms are due to influenza but given severity of symptoms with progressing acute encephalopathy, mild acute hypoxic respiratory failure, mild acute kidney injury concern for concurrent bacterial infection - lactate was reassuring, mild leukopenia, NOT neutropenic, IS immunosuppressed - with complex antibiotic allergy history, past records reviewed, has tolerated meropenem in past, discussed with ID, plan to use for 48 h and reassess - with port, also treat empirically with vancomycin - blood cultures, urine culture requested, chest xray did not show infiltrate - covid testing negative - for encephalopathy will check head CT STAT - discussion of lumbar puncture depending on above testing and clinical course - discussing with ICU team, may need higher level of care - [place] [facility] [place] - discussed with her bone marrow oncologist Dr. Patel who recommends consideration for short burst of steroids for asthma Pneumonia 06/05/2023 Assessment & Plan (06/05/2023 5:20 PM EST): Immunocompromise patient presented with 3-day history of fever Tmax 102 Fahrenheit, myalgia, nonproductive cough, and dyspnea on exertion found to have cluster right upper lobe peribronchial vascular nodular opacity, opacity in the left lower lobe, and diffuse bronchial wall thickening with mucous plugging concerning for infectious process. Viral versus bacterial versus fungal infection. Although patient has no significant leukocytosis, her diff lymphocyte predominant with elevated eosinophilia. This may be suspicious for fungal infection in setting of immunosuppression. Additionally, active CMV may be present (despite ppx with valganciclovir) in the setting of immunocompromise and elevated LFTs. Less likely PJP as has been on bactrim ppx. Her case was discussed with ID and will add doxy. Maishao added this AM. Pharmacy to dose with a load of 1750x1 ad then [address] Conrad will see her in the Am and may planto bronch, NPO after midnight. The pt is aware an in agreement with the plan. -Continue IV cefepime presumed bacterial infection -Cont vanc -add doxy for atypicals -cont bactrim DS TIW for pjp ppx -cont valganciclovin for CMV ppx -cont DuoNebs 4 times a day -Albuterol as needed for shortness of breath -Obtain respiratory panel -Sputum culture, Legionella/strep antigen -Mucinex 600 mg twice daily -Tessalon Perles as needed for cough -Repeat CBC and CMP in the morning -Pulm c/s -npo after midnight for possible bronch Herpes simplex 03/26/2023 Assessment & Plan (03/26/2023 1:03 PM EST): Perirectal rash does appear to be herpetic in nature. It is improving. Continue antiviral medication. Encourage patient to use a zinc oxide barrier cream such as A&E or Desitin. As she reports discomfort from the cold water and pressure of her bidet, she is encouraged to get a peribottle and fill this with warm water. Dysuria 03/26/2023 Assessment & Plan (03/26/2023 1:01 PM EST): Reports worsening urgency, frequency, and dysuria. Updated urinalysis with reflex to culture was ordered. Menopausal vasomotor syndrome 02/08/2023 Assessment & Plan (02/08/2023 3:53 PM EDT): Vasomotor symptoms seemed better with HRT however, Vicki had difficulty keeping the patch on her skin. She did not have local irritation from the patch adhesive. We discussed alternatives including PO HRT vs trial of a twice weekly combined patch. She strongly prefers to avoid oral therapy so will use twice weekly patch. Breakthrough bleeding very likely not ovulatory - advised this is likely side effect from on/off patch use. She will monitor and f/u sooner than planned 3 months if bleeding persists. Bilateral lower extremity pain 09/23/2022 Assessment & Plan (09/23/2022 3:41 PM EDT): Patient has had ongoing intermittent, diffuse bilateral leg pain which she describes as aching/deeper/john pain. Initially during her transplant admission this was thought to be due to granix injections/engraftment and is currently on daily Zyrtec, however it has now persisted. Pain seems to occur in the afternoon/evening. Legs are non-tender to touch, denies back pain, tingling/numbness. There is no limitation in movement or abnormal gait noted. 09/11 Roland negative for clot. Diarrhea 09/19/2022 Assessment & Plan (10/05/2023 9:47 AM EDT): #Diarrhea 2/2 mild duodenitis/colitis Pt presented with several weeks of worsening loose stools, currently having 10- 14 watery BMs daily. Diarrhea accompanied by intermittent abdominal cramping. No fevers/chills. She has occasional nausea but no vomiting. Appetite decent. No weight loss. Hx of Cdiff diarrhea, but recent testing was negative on 09/19. CMV PCRs on 09/26 negative. She has been on prednisone and Jakafi for skin GVHD, as above. She was admitted for diarrhea workup. DDx includes infectious colitis vs GI GVHD. Initiated budesonide empirically for high concern of GVHD. C Diff PCR negative 10/01. EGD/flex sig 10/01: endoscopically unremarkable, path noted mild duodenitis & colitis, negative for GVHD and CMV staining. Norovirus negative 10/03. CT Abd/Pelv 10/03 negative for acute findings. Diet has been advanced to regular with tolerance and reduction in stool output since admission. Patient stated in the morning of 10/04, that she is down to 2-3 liquid to soft BM's per day. She does admit to having some abdominal cramping just before and sometimes after the BM's but pain is minimal. - GI signed off, appreciate recs - Plan for outpt follow up - Continue Budesonide 9 mg PO daily - Continue Imodium PRN - Stool studies pending (Stool cx, Stool cyclospora, Crypto antigen, Adenovirus, Ovo/Parasite, Celiac, Calprolectin, Stool fat, Panc Elastase) - Diet: Regular - Quantify stool volume with I/Os & diet intake, if doing well, possible discharge tomorrow with outpatient follow up (see above). Assessment & Plan (03/26/2023 1:02 PM EST): With continued diarrhea. She has had a recent equivocal C. difficile test. I ordered a repeat C. difficile test. I think it would be really beneficial for this patient to have a GI consult and likely a colonoscopy. Assessment & Plan (09/19/2022 4:02 PM EDT): Unclear etiology for pt's ongoing, watery diarrhea. Recommend GI consult. Consider stool AFB culture as well as stool testing for cryptosporidium, giardia, yersinia, adenovirus, and norovirus and shiga toxin. Stool testing for yersinia, shiga toxin, adenovirus and norovirus are through the [facility] and would need to be ordered as miscellaneous testing with the following codes: YERSC (yersinia), STFRP (shiga toxin), LADV (adenovirus), and LNORO (norovirus). 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 Patel - cont tacrolimus, belumosudil (rezurock), and ruxolitinib (Jakafi) - Desiree will bring rezurock and jakafi from home, also continue budesonide - received PCP prophylaxis pentamidine 06/03 - cont VZV prophylaxis valtrex - cont fungal prophylaxis fluconazole Fever in adult 09/18/2022 Assessment & Plan (03/26/2023 1:05 PM EST): Patient with continued fever. I have instructed her to keep a fever diary. We ray other potential etiologies for her fever. I think it is highly unlikely that patient has HIV but I think it is worth ruling this out. She does have a dog and spends time outside and for we will order tickborne illness testing. When her fever and ongoing shortness of breath, I have ordered repeat chest x-ray. Assessment & Plan (09/19/2022 4:01 PM EDT): Unclear etiology for pt's fever. Recommend blood cultures from port and peripherally, if not already obtained. Given her high thoracic spinal tenderness, recommend MRI of the thoracic spine. While pt is not having any respiratory symptoms, she does have patchy opacities on imaging and therefore, recommend obtaining a respiratory viral panel and pneumocystis studies. We spoke with Transplant ID team who did not recommend starting Micafungin or other antifungal for pt's fever as she is not neutropenic. Assessment & Plan (09/18/2022 5:55 PM EDT): Patient with fever of unknown origin, immunocompromised with recent stem cell procedure, undergoing treatment for T-cell lymphoma. Treatment guided [place] [facility] [place] after her recent admission, see full discharge summary from 09/16/2022. I am concerned for possible skin source with blood cultures requested from her port. -Patient has been started on IV cefepime and vancomycin, continuing for empiric treatment for neutropenic fever -Following blood cultures, port and peripheral -Additional labs have been requested with stool studies, EBV and cytomegalovirus, electrolytes -She does have a watery diarrhea which has been present for a month. CT abdomen pelvis reviewed from 09/10 with no acute bowel findings with similar symptoms at that time. Holding off on repeat abdominal imaging for now. -Chest x-ray suggestive of right middle lobe atelectasis though watching for progressive pneumonia symptoms. Currently without cough or respiratory symptoms, no hypoxia. -Monitor daily CBC for progressive neutropenia -Consider ID consult -Antipyretics available if needed. -Negative COVID and influenza testing Mucositis 09/08/2022 Infectious disease 08/25/2022 Assessment & Plan (07/25/2024 1:12 PM EDT): #Non-neutropenic Fever #Diarrhea #Recent Influenza B URI (Treated) #Hx ESBL Recent hospitalization 06/04/24-06/10 for influenza B and asthma exacerbation, completed treatment with Tamiflu and prednisone. Was recovering well at home though represented to clinic 07/22 with fever, tmax 101.3F and associated dyspnea and hypoxia with diarrhea x2 days. Non-con CT CAP with near-resolved LLL GGOs. Suspect improvement from previous viral infection. Initial workup with RVP +Influenza A, so was started on 10-day course Tamiflu. Also empirically started Cefepime and Flagyl given localized LUQ/LLQ abd pain and persistent diarrhea. - Tamiflu 75 mg BID x10 days (D1=07/22) - Doxycycline 100 mg PO BID (D1=07/24) - Prednisone 20 mg PO QD - D/C Cefepime 2 GM IV Q8H (D1=07/22-07/24)w/ test-dose given Augmentin intolerance; If Cx's come back negative will switch to e-mycin. - D/C Flagyl 500 mg IV Q12H - Consider de-escalating abx in coming days if remainder of cx data is negative as sx's likely explained by Influenza A - Send sputum culture if able to produce sample - Send stool studies, including culture O&P, C.diff, norovirus and adenovirus - Follow-up outstanding infectious workup - If febrile with temp >100.4, culture Q24H - Supportive care w/ inhalers and antitussives #ID prophylaxis: - VZV: S/p Zoster now decreased to Valtrex 1000 mg daily - Fungal: Fluconazole 200 mg daily - PCP: Pentamidine, every 4 weeks, next 08/01/24 - Outpatient team considering switching to Bactrim DS MWF dosing if PLTs permit - CMV: both sero-reactive D/R. 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 Was recovering well at home though represented to clinic 07/22 with fever, tmax 101.3F and associated dyspnea and hypoxia with diarrhea x2 days. Non-con CT CAP with near-resolved LLL GGOs. Suspect improvement from previous viral infection. Initial workup with RVP +Influenza A, so was started on 10-day course Tamiflu. Also empirically started Cefepime and Flagyl given localized LUQ/LLQ abd pain and persistent diarrhea. - Tamiflu 75 mg BID x10 days (D1=07/22) - D/C Cefepime 2 GM IV Q8H (D1=07/22-07/24)w/ test-dose given Augmentin intolerance; If Cx's come back negative will switch to e-mycin. - D/C Flagyl 500 mg IV Q12H - Doxycycline 100 mg PO BID (D1=07/24) - Consider de-escalating abx in coming days if remainder of cx data is negative as sx's likely explained by Influenza A - Send sputum culture if able to produce sample - Send stool studies, including culture O&P, C.diff, norovirus and adenovirus - Follow-up outstanding infectious workup - If febrile with temp >100.4, culture Q24H - Supportive care w/ inhalers and antitussives #ID prophylaxis: - VZV: S/p Zoster now decreased to Valtrex 1000 mg daily - Fungal: Fluconazole 200 mg daily - PCP: Pentamidine, every 4 weeks, next 08/01/24 - Outpatient team considering switching to Bactrim DS MWF dosing if PLTs permit - CMV: both sero-reactive D/R. 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 Was recovering well at home though represented to clinic 07/22 with fever, tmax 101.3F and associated dyspnea and hypoxia with diarrhea x2 days. Non-con CT CAP with near-resolved LLL GGOs. Suspect improvement from previous viral infection. Initial workup with RVP +Influenza A, so was started on 10-day course Tamiflu. Also empirically started Cefepime and Flagyl given localized LUQ/LLQ abd pain and persistent diarrhea. - Tamiflu 75 mg BID x10 days (D1=07/22) - Cefepime 2 GM IV Q8H (D1=07/22)w/ test-dose given Augmentin intolerance; If Cx's come back negative will switch to e-mycin. - D/C Flagyl 500 mg IV Q12H - Consider de-escalating abx in coming days if remainder of cx data is negative as sx's likely explained by Influenza A - Send sputum culture if able to produce sample - Send stool studies, including culture O&P, C.diff, norovirus and adenovirus - Follow-up outstanding infectious workup - If febrile with temp >100.4, culture Q24H - Supportive care w/ inhalers and antitussives #ID prophylaxis: - VZV: S/p Zoster now decreased to Valtrex 1000 mg daily - Fungal: Fluconazole 200 mg daily - PCP: Pentamidine, every 4 weeks, next 08/01/24 - Outpatient team considering switching to Bactrim DS MWF dosing if PLTs permit - CMV: both sero-reactive D/R. 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 Was recovering well at home though represented to clinic 07/22 with fever, tmax 101.3F and associated dyspnea and hypoxia with diarrhea x2 days. Non-con CT CAP with near-resolved LLL GGOs. Suspect improvement from previous viral infection. Initial workup with RVP +Influenza A, so was started on 10-day course Tamiflu. Also empirically started Cefepime and Flagyl given localized LUQ/LLQ abd pain and persistent diarrhea. - Tamiflu 75 mg BID x10 days (07/22- - Started Cefepime w/ test-dose given Augmentin intolerance - Start Flagyl 500 mg IV Q12H - Consider de-escalating abx in coming days if remainder of cx data is negative as sx's likely explained by Influenza A - Send sputum culture if able to produce sample - Send stool studies, including culture O&P, C.diff, norovirus and adenovirus - Follow-up outstanding infectious workup - If febrile with temp >100.4, culture Q24H - Supportive care w/ inhalers and antitussives #ID prophylaxis: - VZV: S/p Zoster now decreased to Valtrex 1000 mg daily - Fungal: Fluconazole 200 mg daily - PCP: Pentamidine, every 4 weeks, next 08/01/24 - Outpatient team considering switching to Bactrim DS MWF dosing if PLTs permit - CMV: both sero-reactive D/R. 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 Recent viral swabs were negative though she still has a persistent cough and is wheezing . She presented to OSH with hypoxemia with O2 sat of 80%, as well as fevers and AMS. Possible co-infection or bacterial pneumonia less likely given clear CXR.Treated with Meropenem (h/o ESBL), Vancomycin, Fluconazole for concern for sepsis. [place] [facility] she has no signs of sepsis. Blood cultures remain negative. Procalcitonin is low at 0.15. CXR is clear although CT noted bilateral lower lobe PNA's. No clear source of bacterial infection. Stopped antinfectives and will trend fever curve. CT PE negative. RVP with flu B+ s/p 5 day course of tamiflu (06/04-06/08). - continue home ppx fluconazole 200 mg and valcyclovir - receives pentamadine last received 06/03 with pre-meds, next due ~ 07/03 - cont Prednisone 60mg Daily x 5 days (D1=06/08) - send fungal markers and CMV today 06/09 while on high dose steroids - f/u resp culture (sent 06/08) - Send Bcx daily with T > 100.5 Assessment & Plan (06/08/2024 11:43 AM EST): #Influenza B: #Sepsis, resolved: Patient with h/o rhino/enterovirus infection and required a short course of steroids for an asthma exacerbation and multiple URIs over the last couple of months, recently completing a course of doxycycline prescribed by local ED. Recent viral swabs were negative though she still has a persistent cough and is wheezing . She presented to OSH with hypoxemia with O2 sat of 80%, as well as fevers and AMS. Possible co-infection or bacterial pneumonia less likely given clear CXR. Treated with Meropenem (h/o ESBL), Vancomycin, Fluconazole for concern for sepsis. [place] [facility] has no signs of sepsis. Blood cultures remain negative. Procalcitonin is low at 0.15. CXR is clear. No clear source of bacterial infection. Stopped antinfectives and will trend fever curve. - CXR on admission - No evidence of pneumonia or pulmonary edema - CT PE w/o evidence of PE- continues to demonstrate bilateral lower lobe pneumonia, new from 05/14/2024 - Extended respiratory viral panel with persistent Flu B - Continue Tamiflu 75mg BID for 5-day course (06/04-23 AM) - continue home ppx fluconazole 200 mg - START Prednisone 60mg Daily x 5 days (D1=06/08) - Send respiratory culture if able -Atypical bacterial pneumonia is possible - Send Bcx daily with T > 100.5 Assessment & Plan (06/07/2024 10:22 PM EST): #Influenza B: #Sepsis, resolved: Patient with h/o rhino/enterovirus infection and required a short course of steroids for an asthma exacerbation and multiple URIs over the last couple of months, recently completing a course of doxycycline prescribed by local ED. Recent viral swabs were negative though she still has a persistent cough and is wheezing . She presented to OSH with hypoxemia with O2 sat of 80%, as well as fevers and AMS. Possible co-infection or bacterial pneumonia less likely given clear CXR. Treated with Meropenem (h/o ESBL), Vancomycin, Fluconazole for concern for sepsis. [place] [facility] [place] has no signs of sepsis. Blood cultures remain negative. Procalcitonin is low at 0.15. CXR is clear. Clinically she is non-toxic appearing with no clear source of bacterial infection. Will therefore hold antibiotics and trend vitals and clinical exam. She continues to have wheeze on exam so will send an extended respiratory viral panel (not sent at [facility]) looking for viral co-infection. Will also obtain respiratory culture if able. Atypical bacterial pneumonia is possible - though notably these symptoms developed while on doxycycline for 2 weeks for a sore throat. Finally, she reports pleuritic chest pain and has persistent O2 requirement - Will obtain CT PA to rule out pulmonary embolism. Labs/Imaging: MSA screen negative 06/04 CMV PCR 06/03/24 not detected Blood cultures NGTD X2 06/04 < 24h COVID 19 PCR negative 06/04 Influenza B PCR positive 06/04 CXR with no PNA 06/04 Procalcitonin 0.15 Admission EKG - no signs of ischemia Dx - CXR on admission - clear on wet read - Send CT PE - Send extended respiratory viral panel - Send respiratory culture if able - Send Bcx daily with T > 100.5 Tx: - Stop Vanc/Benjamin - Continue Tamiflu 75mg BID for 5-day course (06/04-2/3 AM) - continue home ppx fluconazole 200 mg Assessment & Plan (10/03/2023 1:30 PM EDT): Afebrile and non-neutropenic on admission. Reports weeks of watery diarrhea. 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 Routine Prophylaxis: - Acyclovir 400 mg PO BID - Fluconazole 200 mg PO daily - Letermovir 480 mg PO daily until day +90 - Pentamidine monthly; last given 09/19 - Can start Mepron once GI toxicities resolve - CMV PCR weekly (Fridays) Assessment & Plan (08/14/2023 7:38 AM EDT): #Febrile neutropenia Febrile 07/23 OVN w/ tmax of 104.2 w/ hypotension and tachycardia. Patient endorsed nasal congestion earlier in the day w/ negative RVP. Lactate flat. Imaging w/ c/f RLL PNA, but not new finding and has been seen on previous imaging. CTAP w/out infectious etiology. UA not convincing for UTI. Empiric cefepime started for fever despite not neutropenic given functional neutropenia w/ downtrending ANC. Of note, admitted 05/2023 w/ H flu PNA and transaminitis, pancreatitis requiring intubation and pressors. S/p antibiotic course and HD steroids for chemotherapy induced hepatitis/pancreatitis/colitis. Completed prednisone taper on 07/15 but resumed 07/23 iso hypotension as noted elsewhere. Colon biopsy negative for CMV. 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 Cefepime and Flagyl both discontinued with count recovery and improved susanna-anal pain. - If febrile >100.4, culture q24h #Labial lesions Pt has a hx of genital HSV lesions. She has been on Famvir daily per routine prophylaxis for stem cell transplant. On 08/08, pt reports new painful ulcerous labial lesions so was started on 7-day course of treatment dose acyclovir before rotating back to ppx dosing. - Acyclovir 400 mg PO TID through 08/15 and will change back to ppx dosing - Follow-up HSV PCR swab of labial lesions #Hypogammaglobulinemia Chronically low IgG levels. IgG <400 since admission but deferred IVIG for stem cell transplant course. Was given on 08/11/23. Of note, patient had some concurrent low back pain though preexistent prior to infusion. Monitored closely and successfully completed IVIG. 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 Of note, she did have a positive blood cultures from 1 bottle on 09/12 which grew staph epidermis, which was felt to be contaminate, as repeat cultures remained negative. She did have significant diarrhea during her transplant admission which was managed with Imodium and Lomotil. She continued to have fevers at home to 101 with minimal PO intake and 5-6 loose stools a day. She presented to [facility] ED on 09/18 for ongoing fevers. She was initially started on vanc and cefepime given concern for a possible emerging PNA on CXR. That evening of 09/18, she became hypotensive and SOB. A rapid response was called. She was givn IVF resuscitation and started on pressors. She was transferred from [facility] ICU to [facility] [place]. She continued to have large amounts of watery stool output. CDiff negative. Flagyl was added given the GI symptoms. CT C/A/P on 09/19 was unrevealing, including no colitis seen on abdominal imaging. Her BPs improved and she weaned off pressors on 09/20. Stool culture, rotavirus, norovirus, ecoli negative to date. CMV and EBV negative. Fungal markers negative. Blood cultures remain negative, so vanc was stopped on 09/21. Still unclear etiology of her fevers and diarrhea, possibly related to melphalan enteritis, so Prednisone was started on 09/20. Has been afebrile since 09/20. Stools improving in volume though remain watery/loose at this time. - Appreciate Transplant ID following - Prednisone 20 mg PO daily - Repeat CMV ordered for 09/25 (1 week from prior result) - F/u Cryptosporidium antigen, stool and stool cyclospora and isopspora - F/u adenovirus, stool - Culture q24h for Temp >100.4 - Discontinue Lomotil today 09/23 / judicious use of Imodium PRN Completed antibiotics - Vancomycin (09/18-09/21) - Cefepime (09/18-09/22) - Flagyl (09/20-09/22) Routine Prophylaxis: - Acyclovir 400 mg PO BID - Hibiclens daily, Peridex mouthwash BID Assessment & Plan (09/16/2022 6:46 AM EDT): #Febrile neutropenia [Resolved] #GPC bacteremia First fever 09/05 Tmax 102.3. Ucx with abundant GNRs and BCx negative. CT CAP 09/05 neg. S/p Cefepime (D1=09/05-09/12). Fungal markers negative. Repeat CT CAP (09/08) w/ increase size and number of multistation mediastinal, paraesophageal, and axillary lymphadenopathy and new splenomegaly and enlarging abdominopelvic lymphadenopathy, could be reactive or due to lymphoma. Continue w/ fevers w/ Tmaax but Cefepime d/c'd 09/12 with fever curve improvement and count recovery. BCx (09/12) grew staph epi which was felt to be contaminant. S/p IV Vanc 09/14-09/15 and CVC removed. No indication for oral abx at discharge - F/u surveillance BCx- NGTD #Diarrhea On 09/03, patient developed diarrhea. C. diff negative (09/04). Repeat C. diff sent 09/07, (-). Stool cx (-) & stool O&P negative. 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 Outpatient psych provider is Jenn Correa NP. Was followed by inpatient psych on her previous admission. During last admission, was noted to have some ocular dyskinesia b/l, nystagmus and new mild b/l hand tremors. Neuro exam with no focal deficits. Discussed with IP psych: likely iso oversedation leading to suppression of central SURGEON'S ASSISTANT and fevers. She was discharged home on Adderall 30 mg PO daily, Prozac 40 mg PO daily, Prazosin 4 mg PO nightly, Zyprexa 5 mg PO qHS with additional PRN for nausea, Xanax 2 mg at 7pm and 2 mg at 9pm with additional 2 mg daily PRN for anxiety. Pt was generally adhering to these instructions, although admits she was not taking any Zyprexa and taking Xanax 4 mg nightly at home instead of separate 2 mg doses. Unclear if she was taking any trazadone or PRN Zofran or Atarax at home. Concern for possible serotonin syndrome as the cause of her symptoms of fever, chills, sweats, and diarrhea, which prompted ED visit on 09/18. She also reported an episode of bilateral hand contractions lasting 1 minute x 2 on 09/18. Consulted Psych on 09/21, they will plan to see patient formally on 09/22 but did provide some med recs in the meantime. - Inpatient Psych consulted; appreciate recs - Continue regimen as follows: - HOLD Adderall while admitted - Alprazolam 2 mg PO at 1900 + 2 mg PO at 2100; additional 1 mg available PRN during the day for anxiety - Fluoxetine 40 mg PO daily - Resume Prazosin 4 mg PO nightly today 09/23 with hold parameters given improvement in blood pressures - EKG for QTc monitoring Assessment & Plan (09/14/2022 11:35 AM EDT): Unclear history on admission, med rec performed with patient, and PDMP. Outpatient psych provider is Jenn Correa NP. Reports every night starting at 1900 takes hydroxyzine 100 mg & clonidine 0.2 mg and then at 1999 she takes trazodone 400 mg, prazosin 2 mg, and xanax 6mg (2mg and 4mg at 7pm and HS). Clonidine and trazodone d/c at admission per psych guidance. On 09/12, noted to have some ocular dyskinesia b/l, nystagmus and new mild b/l hand tremors. Neuro exam with no focal deficits. Discussed with IP psych: likely iso oversedation leading to suppression of central SURGEON'S ASSISTANT and fevers. - HOLD Adderall - Psych following for additional guidance on medication regimen & dosing; appreciate recommendations and ongoing support - Zyprexa 5mg PO QHS - Zyprexa 2.5-5mg PO Q6H PRN - Per psych, ok to give olanzapine, has tolerated in the past and do not think that it was contributing to recent EPS - Alprazolam 2 mg PO at 1900 + 2 mg PO at 2100 - Fluoxetine 40 mg PO daily - Prazosin 4 mg PO nightly Chronic health problem 08/25/2022 Assessment & Plan (10/16/2024 1:58 PM EDT): #Asthma: Not on active treatment. Pt has had asthma exacerbations w/ viral URI's, for which she received prednisone bursts 04/2024,06/2024, & 07/2024.S/p SoluMedrol 125 mg IV x1 10/13 in [facility] ED. NC CT chest---ILD imaging focus (10/14) w/o significant air trapping. - see management of exacerbation above - Outpatient team to consider repeat PFTs # HTN: Previously on amlodipine, which was stopped given CP. Labetalol started 12/2023 w/ good control. - Cont labetalol 100 mg PO BID w/ parameters #GERD - Continue Omeprazole home regimen #Anxiety/Depression/PTSD/Bipolar/ Panic Attacks: Was followed by Psychiatry SERVICE ESTABLISHMENT ATTENDANT Jenn Correa closely for ~20years with stable psych regimen. She has moved and connected Vicki to a new provider for medication management and she also has a therapist. Self increased to Caplyta 42mg daily on 11/16 (Still on fluc with known medication interaction - will monitor closely) - Xanax 6mg nightly - HOLD Adderall 40mg BID while on steroids - sleep hygeine # Back pain- Has an insufficiency fracture of her sacrum and while on steroids osteonecrosis. Last dose of Reclast 5 mg and was given 01/31/24. Vitamin D 34. 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 Saw Ortho on 04/16/24 suspecting majority of pain is coming from her lumbar spine/SI joint - Continue working on weight loss- goal of 245 lbs - Holding ozempic while in house #Weight gain: She is now diabetic with an elevated hemoglobin A1c. She started Ozempic, response has plateaued, will increase the dose and consider switching agents if no effect or of side effects are too great. - HOLD Ozempic 2mg SC weekly on Mondays. May need a different drug (Wegovy/Zepbound) Assessment & Plan (10/15/2024 11:17 AM EDT): #Asthma: Not on active treatment. Pt has had asthma exacerbations w/ viral URI's, for which she received prednisone bursts 04/2024,06/2024, & 07/2024.S/p SoluMedrol 125 mg IV x1 10/13 in [facility] ED. NC CT chest---ILD imaging focus (10/14) w/o significant air trapping. - see management of exacerbation above - Outpatient team to consider repeat PFTs # HTN: Previously on amlodipine, which was stopped given CP. Labetalol started 12/2023 w/ good control. - Cont labetalol 100 mg PO BID w/ parameters #GERD - Continue Omeprazole home regimen #Anxiety/Depression/PTSD/Bipolar/ Panic Attacks: Was followed by Psychiatry [employer]ICE EST[employer]LISHMENT ATTENDANT Jenn Correa closely for ~20years with stable psych regimen. She has moved and connected Vicki to a new provider for medication management and she also has a therapist. Self increased to Caplyta 42mg daily on 11/16 (Still on fluc with known medication interaction - will monitor closely) - Xanax 6mg nightly - Adderall 40mg BID (confirmed with patient) - sleep hygeine # Back pain- Has an insufficiency fracture of her sacrum and while on steroids osteonecrosis. Last dose of Reclast 5 mg and was given 01/31/24. Vitamin D 34. 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 Saw Ortho on 04/16/24 suspecting majority of pain is coming from her lumbar spine/SI joint - Continue working on weight loss- goal of 245 lbs - Holding ozempic while in house #Weight gain: She is now diabetic with an elevated hemoglobin A1c. She started Ozempic, response has plateaued, will increase the dose and consider switching agents if no effect or of side effects are too great. - HOLD Ozempic 2mg SC weekly on Mondays. May need a different drug (Wegovy/Zepbound) Assessment & Plan (10/14/2024 1:35 PM EDT): #Asthma: Not on active treatment. Pt has had asthma exacerbations w/ viral URI's, for which she received prednisone bursts 04/2024,06/2024, & 07/2024.S/p SoluMedrol 125 mg IV x1 10/13 in [facility] ED. - Start prednisone 50 mg daily today 10/14 - Plan for taper over ~ 2 weeks pending sx trajectory - Duonebs Q6H standing - CT chest, as noted elsewhere # HTN: Previously on amlodipine, which was stopped given CP. Labetalol started 12/2023 w/ good control. - Cont labetalol 100 mg PO BID w/ parameters #GERD - Continue Omeprazole home regimen #Anxiety/Depression/PTSD/Bipolar/ Panic Attacks: Was followed by Psychiatry SERVICE ESTABLISHMENT ATTENDANT Jenn Correa closely for ~20years with stable psych regimen. She has moved and connected Vicki to a new provider for medication management and she also has a therapist. Self increased to Caplyta 42mg daily on 11/16 (Still on fluc with known medication interaction - will monitor closely) - Xanax 6mg nightly - Adderall 40mg BID (confirmed with patient) - sleep hygeine # Back pain- Has an insufficiency fracture of her sacrum and while on steroids osteonecrosis. Last dose of Reclast 5 mg and was given 01/31/24. Vitamin D 34. 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 Saw Ortho on 04/16/24 suspecting majority of pain is coming from her lumbar spine/SI joint - Continue working on weight loss- goal of 245 lbs - Holding ozempic while in house #Weight gain: She is now diabetic with an elevated hemoglobin A1c. She started Ozempic, response has plateaued, will increase the dose and consider switching agents if no effect or of side effects are too great. - HOLD Ozempic 2mg SC weekly on Mondays. May need a different drug (Wegovy/Zepbound) Assessment & Plan (07/25/2024 1:12 PM EDT): #Asthma: Recent exacerbation May 2024 iso Flu B requiring 5 days of steroids, completed 06/12/24. - Per outpatient team, given previous asthma exacerbations w/ URI's, consider prednisone burst once pt afebrile - Prednisone 20 mg PO QD (as noted elsewhere) - Standing HHN's for wheezing and mild hypoxia #HTN: Baseline HTN, previously on amlodipine, but was stopped given CP. Has recently been on Labetalol 100 mg BID with good control so continued on admission. - Continue Labetalol 100 mg PO BID w/ parameters - CTM BP's #GERD - Continue home Omeprazole 40 mg PO daily #Anxiety/Depression/PTSD/Bipolar/ Panic Attacks: Was followed by Psychiatry SERVICE ESTABLISHMENT ATTENDANT Jenn Correa closely for ~20years with stable psych regimen. She has moved and connected Vicki to a new provider for medication management and she also has a therapist. - Outpatient follow up w/ therapist and SW - Caplyta 42 mg PO daily - Still on Fluc known medication interaction - will monitor closely - Hydroxyzine 100 mg PO nightly - Doxazosin 2 mg PO nightly - Xanax 6 mg PO nightly - Adderall 30 mg PO BID (confirmed with patient and outpatient prescriber) #Hot Flashes: Developed chemo induced menopause and presented with hot flashes. Was on EstradioL-levonorgestreL, now off. Unable to ascertain effectiveness. Pt continues to have symptoms but tolerable. - Monitor for worsening symptoms #Back pain- Has an insufficiency fracture of her sacrum on steroids and osteonecrosis. On annual Reclast (last given 01/2024). Vitamin D 34. 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 Saw Ortho on 04/16/24 suspecting majority of pain is coming from her lumbar spine/SI joint. - Follow-up Vit D level (sent 07/22) - Actively working on weight loss w/ goal of 245 lbs - 3 mos follow-up with repeat films ~July; outpatient team emailed DEMARIO on 06/20/24 - Will try to get her in to see Dr. Hill from ortho spine #Weight gain - On Ozempic 2 mg SC weekly (Mondays), that was held on admission. Pt states last self-dosed 07/21. - HOLD Ozempic 2 mg PO weekly on admission Assessment & Plan (07/24/2024 4:04 PM EDT): #Asthma: Recent exacerbation May 2024 iso Flu B requiring 5 days of steroids, completed 06/12/24. - Per outpatient team, given previous asthma exacerbations w/ URI's, consider prednisone burst once pt afebrile - Prednisone x 3days - Standing HHN's for wheezing and mild hypoxia #HTN: Baseline HTN, previously on amlodipine, but was stopped given CP. Has recently been on Labetalol 100 mg BID with good control so continued on admission. - Continue Labetalol 100 mg PO BID w/ parameters - CTM BP's #GERD - Continue home Omeprazole 40 mg PO daily #Anxiety/Depression/PTSD/Bipolar/ Panic Attacks: Was followed by Psychiatry SERVICE ESTABLISHMENT ATTENDANT Jenn Correa closely for ~20years with stable psych regimen. She has moved and connected Vicki to a new provider for medication management and she also has a therapist. - Outpatient follow up w/ therapist and SW - Caplyta 42 mg PO daily - Still on Fluc known medication interaction - will monitor closely - Hydroxyzine 100 mg PO nightly - Doxazosin 2 mg PO nightly - Xanax 6 mg PO nightly - Adderall 30 mg PO BID (confirmed with patient and outpatient prescriber) #Hot Flashes: Developed chemo induced menopause and presented with hot flashes. Was on EstradioL-levonorgestreL, now off. Unable to ascertain effectiveness. Pt continues to have symptoms but tolerable. - Monitor for worsening symptoms #Back pain- Has an insufficiency fracture of her sacrum on steroids and osteonecrosis. On annual Reclast (last given 01/2024). Vitamin D 34. 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 Saw Ortho on 04/16/24 suspecting majority of pain is coming from her lumbar spine/SI joint. - Follow-up Vit D level (sent 07/22) - Actively working on weight loss w/ goal of 245 lbs - 3 mos follow-up with repeat films ~July; outpatient team emailed DEMARIO on 06/20/24 - Will try to get her in to see Dr. Hill from ortho spine #Weight gain - On Ozempic 2 mg SC weekly (Mondays), that was held on admission. Pt states last self-dosed 07/21. - HOLD Ozempic 2 mg PO weekly on admission Assessment & Plan (07/23/2024 2:47 PM EDT): #Asthma: Recent exacerbation May 2024 iso Flu B requiring 5 days of steroids, completed 06/12/24. - Per outpatient team, given previous asthma exacerbations w/ URI's, consider prednisone burst once pt afebrile - Prednisone x 3days - Standing HHN's for wheezing and mild hypoxia #HTN: Baseline HTN, previously on amlodipine, but was stopped given CP. Has recently been on Labetalol 100 mg BID with good control so continued on admission. - Continue Labetalol 100 mg PO BID w/ parameters - CTM BP's #GERD - Continue home Omeprazole 40 mg PO daily #Anxiety/Depression/PTSD/Bipolar/ Panic Attacks: Was followed by Psychiatry SERVICE ESTABLISHMENT ATTENDANT Jenn Correa closely for ~20years with stable psych regimen. She has moved and connected Vicki to a new provider for medication management and she also has a therapist. - Outpatient follow up w/ therapist and SW - Caplyta 42 mg PO daily - Still on Fluc known medication interaction - will monitor closely - Hydroxyzine 100 mg PO nightly - Doxazosin 2 mg PO nightly - Xanax 6 mg PO nightly - Adderall 30 mg PO BID (confirmed with patient and outpatient prescriber) #Hot Flashes: Developed chemo induced menopause and presented with hot flashes. Was on EstradioL-levonorgestreL, now off. Unable to ascertain effectiveness. Pt continues to have symptoms but tolerable. - Monitor for worsening symptoms #Back pain- Has an insufficiency fracture of her sacrum on steroids and osteonecrosis. On annual Reclast (last given 01/2024). Vitamin D 34. 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 Saw Ortho on 04/16/24 suspecting majority of pain is coming from her lumbar spine/SI joint. - Follow-up Vit D level (sent 07/22) - Actively working on weight loss w/ goal of 245 lbs - 3 mos follow-up with repeat films ~July; outpatient team emailed DEMARIO on 06/20/24 - Will try to get her in to see Dr. Hill from ortho spine #Weight gain - On Ozempic 2 mg SC weekly (Mondays), that was held on admission. Pt states last self-dosed 07/21. - HOLD Ozempic 2 mg PO weekly on admission Assessment & Plan (07/22/2024 7:08 PM EDT): #Asthma: Recent exacerbation May 2024 iso Flu B requiring 5 days of steroids, completed 06/12/24. - Per outpatient team, given previous asthma exacerbations w/ URI's, consider prednisone burst once pt afebrile #HTN: Baseline HTN, previously on amlodipine, but was stopped given CP. Has recently been on Labetalol 100 mg BID with good control so continued on admission. - Continue Labetalol 100 mg PO BID w/ parameters - CTM BP's #GERD - Continue home Omeprazole 40 mg PO daily #Anxiety/Depression/PTSD/Bipolar/ Panic Attacks: Was followed by Psychiatry SERVICE ESTABLISHMENT ATTENDANT Jenn Correa closely for ~20years with stable psych regimen. She has moved and connected Vicki to a new provider for medication management and she also has a therapist. - Outpatient follow up w/ therapist and SW - Caplyta 42 mg PO daily - Still on Fluc known medication interaction - will monitor closely - Hydroxyzine 100 mg PO nightly - Doxazosin 2 mg PO nightly - Xanax 6 mg PO nightly - Adderall 30 mg PO BID (confirmed with patient and outpatient prescriber) #Hot Flashes: Developed chemo induced menopause and presented with hot flashes. Was on EstradioL-levonorgestreL, now off. Unable to ascertain effectiveness. Pt continues to have symptoms but tolerable. - Monitor for worsening symptoms #Back pain- Has an insufficiency fracture of her sacrum on steroids and osteonecrosis. On annual Reclast (last given 01/2024). Vitamin D 34. 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 Saw Ortho on 04/16/24 suspecting majority of pain is coming from her lumbar spine/SI joint. - Follow-up Vit D level (sent 07/22) - Actively working on weight loss w/ goal of 245 lbs - 3 mos follow-up with repeat films ~July; outpatient team emailed DEMARIO on 06/20/24 - Will try to get her in to see Dr. Hill from ortho spine #Weight gain - On Ozempic 2 mg SC weekly (Mondays), that was held on admission. Pt states last self-dosed 07/21. - HOLD Ozempic 2 mg PO weekly on admission Assessment & Plan (10/05/2023 9:51 AM EDT): #Anxiety/Depression/PTSD/Bipolar/Panic Attacks: #ADHD Followed by Psychiatry SERVICE ESTABLISHMENT ATTENDANT Jenn Correa closely for ~20years with stable psych med regimen of Capylta 42mg daily, Hydroxyzine 100mg nightly, Prazosin 2mg nightly, Xanax 6mg nightly, and Adderall 30mg BID (confirmed with patient and outpatient prescriber). Home Caplyta has been dose reduced to 21mg daily due to drug interactions. Patient does report increased irritability and anxiety while being hospitalized. - Previously followed outpatient w/ inpatient coder Jenn Correa - Low threshold to involve inpatient psychiatry team if develops acute psychiatric issues or if unable to take PO psych meds. - Continue home regimen: - Caplyta 21 mg daily (dose-reduced w/ fluconazole) - Adderall 30 mg PO BID (7am, 1pm) - Hydroxyzine 100 mg PO nightly (utilizing formulary dosing 25mg x4; if difficulty w/ PO, consider switching to pt's non-formulary home dose 50mg x2) - Prazosin 2 mg PO nightly - Xanax 4-6 mg PO PRN nightly - For acute anxiety/panic attack: - Xanax 2 mg PO PRN as first line - Reiki/massage/art therapy/SW consulted #Hx of GERD Takes Omeprazole at home - Omeprazole 40 mg PO BID #Asthma: - Albuterol inhaler q6h PRN for wheezing #Menopause/Hot flashes - Pt deferring home Estradiol-norethindrone patch 2x weekly given minimal effect #Hepatic steatosis: Patient w/ mild transaminitis that was present on admission and suspect r/t known hepatic steatosis. Assessment & Plan (08/09/2023 8:27 PM EDT): #Anxiety/Depression/PTSD/Bipolar/Panic Attacks: #ADHD Follows Psychiatry SERVICE ESTABLISHMENT ATTENDANT Jenn Correa closely for ~20years with stable psych med regimen of Capylta 42mg daily, Hydroxyzine 100mg nightly, Prazosin 2mg nightly, Xanax 6mg nightly, and Adderall 30mg BID (confirmed with patient and outpatient prescriber). On admission, home Caplyta was dose reduced to 21mg daily due to drug interactions. Patient does report increased irritability and anxiety while being hospitalized and undergoing SCT treatment. - Appreciate input from outpatient inpatient coder Jenn Correa who is readily available to assist in care - Will try to maintain home dosing per Dr. Patel and outpatient inpatient coder - Low threshold to involve inpatient psychiatry team if develops acute psychiatric issues or if unable to take PO psych meds - Continue home regimen: - Capylta 21 mg daily (dose-reduced w/ fluconazole) - Adderall 30 mg PO BID - Hydroxyzine 100 mg PO nightly - Prazosin 2 mg PO nightly - Xanax 6 mg PO nightly - For acute anxiety/panic attack: - Xanax 2 mg PO PRN as first line - Zyprexa 2.5 mg PO BID (per pharmacy, would not increase Zyprexa dosing due to hx of EPS with anti-psychotic drugs) - Monitor for signs of respiratory/mental status suppression and EPS - Reiki/massage/art therapy/SW consulted #Hx of GERD Takes Famotidine and Omeprazole at home. PPI increased during admission due intermittent epigastric discomfort. - Omeprazole 40 mg PO BID - Famotidine 40 mg PO daily #Asthma: - Albuterol inhaler q6h PRN for wheezing #Menopause - Pt deferring home Estradiol-norethindrone patch 2x weekly given minimal effect #Hepatic steatosis: Patient w/ mild transaminitis that was present on admission and suspect r/t known hepatic steatosis. Of note, admitted Jun 2023 w/ acute liver injury likely 2/2 duvelisib toxicity and treated w/ steroids. #History of bilateral lower extremity pain: Patient concerned during alloSCT admission about BLE pain that has occurred during previous admissions. Chart review reveals history of aching/deep LE pain that to be r/t GCSF during previous transplant admission. Unremarkable exam (non-tender w/ palpation, no change in ROM or abnormal gait, etc). Roland negative for DVT. LE pain improved with massage therapy and has been stable through admission. - Consider massage therapy pending development of LE pain - Analgesics with Tylenol, PO/IV Dilaudid PRN Assessment & Plan (09/21/2022 5:14 PM EDT): # Asthma - Home advair - Albuterol PRN # Nicotine dependence Had several failed attempts at smoking cessation in the past. Has previously tried Chantix. Reports she has not been smoking since she was discharged last week. - Declines nicotine patch Assessment & Plan (09/06/2022 10:31 AM EDT): # Asthma - Home advair - Albuterol PRN # Nicotine dependence Has tried smoking cessation 3 times in the past. Currently down to a couple of cigarettes a day, has benefited from Chantix in the past. - HOLD Chantix given concern for decreased seizure threshold Transaminitis 07/06/2022 Assessment & Plan (10/10/2024 5:20 PM EDT): Known transaminitis, in comparison to prior labs in 09/18/2024, AST ALT improved Assessment & Plan (10/09/2024 3:24 PM EDT): Known transaminitis, in comparison to prior labs in 09/18/2024, AST ALT improved Assessment & Plan (06/05/2024 4:00 AM EST): -Appears at baseline with known GVHD -Trend LFTs, Tbili, Coags -Avoid hepatotoxins Assessment & Plan (06/04/2024 3:18 PM EST): - appears at baseline with known GVHD - will trend Assessment & Plan (06/05/2023 5:22 PM EST): Patient has worsening transaminitis with AST 408, ALT 442, and alkaline phosphatase 181. Additionally her LDH has progressively increased to 568. Recent ultrasound on May 31 showed hepatic steatosis. Chemo vs infection -Holding offduvelisib - repeat liver enzyme in am - oncology consult Assessment & Plan (08/25/2022 3:41 PM EDT): Long-standing issue dating back to 2019. Asymptomatic. Will continue to monitor Assessment & Plan (07/07/2022 4:27 PM EST): -LFTs have been trending up for the last few months (previously elevated dec-mar but then normalized). Repeat LFTs essentially the same today. -Hepatitis panel with no evidence of acute hepatitis. -CMV, EBV cultures in process -No acute findings on CT abd/pelvis -Trend labs T-cell lymphoma 05/26/2022 Assessment & Plan (10/16/2024 7:44 AM EDT): #s/p allo PBSC transplant Primary Outpatient Provider: Nico Patel MD (BMT) Transplant Type: TIGRE Flu/Jeannine PBSCT, Day 0= 07/25/2023 Disease Status: Chimerism (12/2023) 100% donor in all cell lines. 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 Ruxolitinib started 08/30/23. Cellcept stopped 09/04/23. 09/2023, had diarrhea w/ (-) infectious w/u & EGD/flex sig (10/02/23) noted mild duodenitis & colitis, but no GI GVHD. Developed transaminitis 2/2 liver GVHD in 12/2023, for which she was started on Rezurock & received steroids through 02/2024. Tacro stopped 08/26/24. Jakafi 5 mg PO BID started 08/2024. . - Continue jakafi 5mg PO BID - Continue rezurock 200mg BID - Continue budesonide 6mg daily - Omeprazole with meals #Cytopenias: this has been ongoing for some time and reassuringly stable. Last chimerism in our system on 01/03/24 shows still with 100% donor stem cells and no ABO mismatch aplasia risk. - CTM daily cbc and diff, cmp for now - Transfuse leukoreduced, irradiated blood products PRN to keep hgb >7, PLT > 10 Assessment & Plan (10/15/2024 11:17 AM EDT): #s/p allo PBSC transplant Primary Outpatient Provider: Nico Patel MD (BMT) Transplant Type: TIGRE Flu/Jeannine PBSCT, Day 0= 07/25/2023 Disease Status: Chimerism (12/2023) 100% donor in all cell lines. 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 Ruxolitinib started 08/30/23. Cellcept stopped 09/04/23. 09/2023, had diarrhea w/ (-) infectious w/u & EGD/flex sig (10/02/23) noted mild duodenitis & colitis, but no GI GVHD. Developed transaminitis 2/2 liver GVHD in 12/2023, for which she was started on Rezurock & received steroids through 02/2024. Tacro stopped 08/26/24. Jakafi 5 mg PO BID started 08/2024. . - Continue jakafi 5mg PO BID - Continue rezurock 200mg BID - Continue budesonide 6mg daily - Omeprazole with meals #Cytopenias: this has been ongoing for some time and reassuringly stable. Last chimerism in our system on 01/03/24 shows still with 100% donor stem cells and no ABO mismatch aplasia risk. - CTM daily cbc and diff, cmp for now - Transfuse leukoreduced, irradiated blood products PRN to keep hgb >7, PLT > 10 Assessment & Plan (10/14/2024 1:35 PM EDT): #s/p allo PBSC transplant Primary Outpatient Provider: Nico Patel MD (BMT) Transplant Type: TIGRE Flu/Jeannine PBSCT, Day 0= 07/25/2023 Disease Status: Chimerism (12/2023) 100% donor in all cell lines. 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 Ruxolitinib started 08/30/23. Cellcept stopped 09/04/23. 09/2023, had diarrhea w/ (-) infectious w/u & EGD/flex sig (10/02/23) noted mild duodenitis & colitis, but no GI GVHD. Developed transaminitis 2/2 liver GVHD in 12/2023, for which she was started on Rezurock & received steroids through 02/2024. Tacro stopped 08/26/24. Jakafi 5 mg PO BID started 08/2024. . - Continue jakafi 5mg PO BID - Continue rezurock 200mg BID - Continue budesonide 6mg daily - Omeprazole with meals #Cytopenias: this has been ongoing for some time and reassuringly stable. Last chimerism in our system on 08/20/2026 shows still with 100% donor stem cells and no ABO mismatch aplasia risk. - CTM daily cbc and diff, cmp for now - Transfuse leukoreduced, irradiated blood products PRN to keep hgb >7, PLT > 10 Assessment & Plan (10/10/2024 5:20 PM EDT): Follows with bone marrow transplant center in [place] History of T-cell lymphoma status post stem cell transplant complicated by kmafa-koeing-iozr disease requiring extended course of steroids, tacrolimus and now off steroids, tacro is on chronic suppressive therapy including ruxolitinib and Rezurock. Admitting provider spoke with patient[place] [facility] [place] Dr. Patel, who reviewed laboratory workup including CBC, CMP, chest x-ray, suspected mild leukopenia be secondary to a viral illness more so than bacterial infection contributing to asthma exacerbation, recommended to continue general therapy with steroids 40 mg for additional 4 days, does not require prolonged taper course, further infectious workup, monitoring off antibiotics, did recommend to continue patient's chronic ybvtb-zswroo-wdyh disease medications. Did iterate that if patient's respiratory status worsens, worsening laboratory exam, they have accepted her for transfer given her extensive [place] [facility] -Continue Bactrim and Valtrex for prophylaxis. Assessment & Plan (10/09/2024 3:24 PM EDT): - Follows with bone marrow transplant center in [place] - History of T-cell lymphoma status post stem cell transplant complicated by wzqej-ekhokv-cvef disease requiring extended course of steroids, tacrolimus and now off steroids, tacro is on chronic suppressive therapy including ruxolitinib and Rezurock. -Spoke with patient[place] [facility] [place] physician Dr. Patel, who reviewed laboratory workup including CBC, CMP, chest x-ray, suspected mild leukopenia be secondary to a viral illness more so than bacterial infection contributing to asthma exacerbation, recommended to continue general therapy with steroids 40 mg for additional 4 days, does not require prolonged taper course, further infectious workup, monitoring off antibiotics, did recommend to continue patient's chronic eyays-ssvpjv-rhbh disease medications. Did iterate that if patient's respiratory status worsens, worsening laboratory exam, they have accepted her for transfer given her extensive [place] [facility] -Continue Bactrim and Valtrex for prophylaxis. Assessment & Plan (07/25/2024 1:12 PM EDT): Diagnosis: Peripheral T cell lymphoma Primary Outpatient Provider: Nico Patel MD Transplant Type: TIGRE Flu/Jeannine PBSCT, Day 0= 07/25/2023 Disease Status: Surveillance PET scan Day +100 - showing no evidence of FDG avid lymphadenopathy though, new left hemisacral sclerosis may be an early insufficiency fracture, though lymphoma is a possibility Plan: Today, 07/25/2024, is day +366 of Haplo PBSCT - Next PET at 1 year ~ July 2024 - Defer while inpatient iso infectious concerns, as noted elsewhere. 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 Ruxolitinib started 08/30/23. Cellcept stopped 09/04/23. 09/2023, had diarrhea w/ (-) infectious w/u & EGD/flex sig (10/02/23) noted mild duodenitis & colitis, but no GI GVHD. Developed transaminitis 2/2 liver GVHD in 12/2023, for which she was started on Rezurock & received steroids through 02/2024. - Tacro 0.5 mg qAM (last tapered 07/04/24) - Follow-up tacro trough sent in clinic on 07/22, no further trough's needed. - Ruxolitinib 5 mg PO BID (started 08/29) - Rezurock 200 mg BID as she is on omeprazole (01/27/24) - Non-formulary; will ask family to bring in - ( Hold) Budesonide 6 mg PO daily, while on prednisone. 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 Ruxolitinib started 08/30/23. Cellcept stopped 09/04/23. 09/2023, had diarrhea w/ (-) infectious w/u & EGD/flex sig (10/02/23) noted mild duodenitis & colitis, but no GI GVHD. Developed transaminitis 2/2 liver GVHD in 12/2023, for which she was started on Rezurock & received steroids through 02/2024. - Tacro 0.5 mg qAM (last tapered 07/04/24) - Follow-up tacro trough sent in clinic on 07/22, no further trough's needed. - Ruxolitinib 5 mg PO BID (started 08/29) - Rezurock 200 mg BID as she is on omeprazole (01/27/24) - Non-formulary; will ask family to bring in - ( Hold) Budesonide 6 mg PO daily, while on prednisone. 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 Ruxolitinib started 08/30/23. Cellcept stopped 09/04/23. 09/2023, had diarrhea w/ (-) infectious w/u & EGD/flex sig (10/02/23) noted mild duodenitis & colitis, but no GI GVHD. Developed transaminitis 2/2 liver GVHD in 12/2023, for which she was started on Rezurock & received steroids through 02/2024. - Tacro 0.5 mg qAM (last tapered 07/04/24) - Follow-up tacro trough sent in clinic on 07/22, no further trough's needed. - Ruxolitinib 5 mg PO BID (started 08/29) - Rezurock 200 mg BID as she is on omeprazole (01/27/24) - Non-formulary; will ask family to bring in - ( Hold) Budesonide 6 mg PO daily, while on prednisone Assessment & Plan (07/22/2024 7:08 PM EDT): Diagnosis: Peripheral T cell lymphoma Primary Outpatient Provider: Nico Patel MD Transplant Type: TIGRE Flu/Jeannine PBSCT, Day 0= 07/25/2023 Disease Status: Surveillance PET scan Day +100 - showing no evidence of FDG avid lymphadenopathy though, new left hemisacral sclerosis may be an early insufficiency fracture, though lymphoma is a possibility Plan: Today, 07/22/2024, is day +363 of Haplo PBSCT - Next PET at 1 year ~ July 2024 - Defer while inpatient iso infectious concerns, as noted elsewhere #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 Ruxolitinib started 08/30/23. Cellcept stopped 09/04/23. 09/2023, had diarrhea w/ (-) infectious w/u & EGD/flex sig (10/02/23) noted mild duodenitis & colitis, but no GI GVHD. Developed transaminitis 2/2 liver GVHD in 12/2023, for which she was started on Rezurock & received steroids through 02/2024. - Tacro 0.5 mg qAM (last tapered 07/04/24) - Follow-up tacro trough sent in clinic on 07/22 - Ruxolitinib 5 mg PO BID (started 08/29) - Rezurock 200 mg BID as she is on omeprazole (01/27/24) - Non-formulary; will ask family to bring in - Budesonide 6 mg PO daily Assessment & Plan (06/09/2024 3:42 PM EST): #ONC/Peripheral T cell lymphoma Surveillance PET scan Day +100 - showing no evidence of FDG avid lymphadenopathy though, new left hemisacral sclerosis may be an early insufficiency fracture, though lymphoma is a possibility. Follows with Dr. Patel.Off letermovir since November 2023. - Next PET at 1 year ~ July 2024 - x1 dose GCSF with dropping ANC 2/3 (likely r/t GVHD and known viral infection currently) Assessment & Plan (06/08/2024 11:43 AM EST): #ONC/Peripheral T cell lymphoma Surveillance PET scan Day +100 - showing no evidence of FDG avid lymphadenopathy though, new left hemisacral sclerosis may be an early insufficiency fracture, though lymphoma is a possibility Next PET at 1 year ~ July 2024 Assessment & Plan (07/07/2022 4:25 PM EST): -Patient follows with Dr. Glynn at the cancer center, she is status post 6 cycles of CHOEP, last chemotherapy on 06/19, she was also recently seen at [facility] for second opinion. Labs with no neutropenia white count 3.09. ANC 1.84. Assessment & Plan (05/26/2022 5:17 PM EST): Follow by Dr. Glynn at oncology center. Most recent chemotherapy infusions were 05/15-05/2010 with PEG filgrastim on 05/18. Her dose of pegfilgrastim was decreased from 6 to 4 mg after cycle 1 because of leg pain. -- We will need oncology follow-up after discharge Febrile neutropenia 05/23/2022 Assessment & Plan (05/27/2022 3:02 PM EST): She initially presented with fever and neutropenia setting of treatment for peripheral T-cell lymphoma, on CHO EP therapy and had received growth factor as part of treatment regimen Neutropenia has resolved. Infectious work-up at this point unrevealing CT abd/pelvis no acute pathology (lower lung lazaro clear); CXR negative COVID-19 PCR, strep pneumo and Legionella antigens negative; Influenza negative; Blood cultures NGTD; Procalcitonin not elevated Despite resolution of neutropenia negative infectious work-up, she has continue to have fever, unclear source. Differential diagnosis would include viral infection, malignancy or medication related. No findings to suggest thromboembolic process at this point Cultures have remained negative. No new infectious findings --We will continue to monitor off antibiotics. Meropenem and Bactrim DC'd on 05/26 -- If diarrhea develops, send stool cultures, C. Difficile -- Continue close monitoring ADHD (attention deficit hyperactivity disorder) 05/23/2022 Assessment & Plan (09/18/2022 5:58 PM EDT): Home regimen continued. Patient has been managed for 17 years for her ADHD and takes Adderall 30 mg up to 3 times daily, Xanax up to 6 mg/day. She has spoken with her mental health provider since [place] [facility] [place] who recommended discontinuation of Zyprexa and melatonin. All medications reconciled with patient. Assessment & Plan (05/24/2022 1:44 PM EST): - cont to hold Adderall Depression with anxiety 05/23/2022 Assessment & Plan (10/09/2024 2:59 PM EDT): Continue nortriptyline, alprazolam, Adderall, Caplyta. Assessment & Plan (05/24/2022 1:46 PM EST): - continue with alprazolam, clonidine and fluoxetine, trazodone, hydroxyzine 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 mul tiple sites 01/30/2022 Assessment & Plan (10/05/2023 9:48 AM EDT): Diagnosis: Recurrent peripheral T cell lymphoma Treatment: s/p PBSCT with TIGRE fludarabine/melphalan conditioning and PTCy/Tacro/MMF GVHD ppx, D0=07/25/23 Disease Status: Chimerism 100% donor (08/20) Primary Outpatient Provider: Dr. Patel (BMT) Plan: Today, 10/05/23 is day +72 of TIGRE Flu/Jeannine HaploPBSCT for T-cell Lymphoma. - Supportive care with IVF, anti-emetics - Transfuse leukoreduced and irradiated blood products for a Hgb <7g/dl and Plt<10k; no transfusions needed recently # GVHD ppx: PTCy/MMF/Tacrolimus for ppx. Off MMF since 09/04/23 and currently maintaining on Tacrolimus # skin GVHD: Developed acute skin GVHD, initially treated with topical steroid cream and then started on Prednisone (now tapering) and Jakafi on 08/30/23. Skin now improved. Now admitted for diarrhea c/f GI GVHD. - Tacrolimus 2.5 mg PO qAM and 3 mg PO qPM - Plan to recheck in 1 week - Prednisone 20 mg PO daily - Jakafi 5 mg PO BID (D1=08/30/23) - GI GVHD workup as outlined above Assessment & Plan (08/14/2023 7:37 AM EDT): Diagnosis: Recurrent peripheral T cell lymphoma Disease Status: S/p 6 cycles of CHOEP and BEAM auto SCT (Day 0=08/31/2022). Relapsed, now back in remission after romidepsin and duvelsib Treatment: Admitted for haploidentical PBSCT with TIGRE fludarabine/melphalan conditioning and PTCy/Tacro/MMF GVHD ppx, D0=07/25/23 Primary Outpatient Provider: Dr. Patel (BMT) Plan: Today, 08/14/23 is day +20 of TIGRE Flu/Jeannine HaploPBSCT for T-cell Lymphoma. Chemo toxicities include diarrhea, nausea, and grade 2 CRS requiring Tociluzimab x1 07/27. CRS resolved with completion of Cytoxan. - Supportive care with IVF, anti-emetics - Transfuse leukoreduced and irradiated blood products for a Hgb <7g/dl and Plt<10k - Actigall for VOD ppx - Omeprazole for GI ppx #GVHD prophylaxis: ??PT Cy/Tacrolimus/MMF ppx. - Tacrolimus 2.5 mg PO BID - Tacrolimus trough due 08/14 - Mycophenolate Mofetil 1000 mg PO q12h #Mucositis Developed mucositis since 07/28 with ulcerous lesion on right lateral tongue. As of 08/03, noted to have additional ulcerous lesions at tip of tongue and bilateral buccal mucosa. No pain. - Magic mouthwash PRN Assessment & Plan (06/05/2023 3:09 AM EST): Patient follows Dr. Saunders for her stage III peripheral T-cell lymphoma currently on maintenance Durvelisib. Per recent documentation, given concern for CMV reactivation, she was restarted on valganciclovir 900 mg twice daily. -Holding off Durvelisib -Continue Bactrim DS 3 times weekly (Sunday) -Continue valganciclovir -Oncology consult Assessment & Plan (04/20/2023 10:54 AM EST): IMPRESSION: This is a 42-year-old woman with history of peripheral T-cell lymphoma recurrent after autologous stem cell transplant. DISCUSSION: I discussed overall impression and further management in this regard. She has a second opinion scheduled with Dr. Casper in [place]. She has been tolerating current therapy without any significant side effects and will continue as planned. Dr. Saunders is also trying to get the approval for Romidepsin for her RECOMMENDATIONS: Continue current therapy She has second opinion scheduled in [place] next week Follow-up with Dr. 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 Recent complications of mucositis and fevers, omeprazole added for GI prophylaxis, ursodiol for VOD prophylaxis. Recommendation to consult [facility] [place] with updates and treatment plans. Assessment & Plan (09/16/2022 6:47 AM EDT): Diagnosis: Peripheral T-cell lymphoma Treatment: Admitted for autologous stem cell transplant with BEAM conditioning, D0= 08/31 Primary Outpatient Provider: Jorge Today, 09/16/22, is Day +16 of BEAM auto transplant on Protocol -229 - Transfuse leukoreduced and irradiated blood products as needed to maintain Hgb >7 and PLT >10K - Anti-emetics and IVF - Avoid Haldol given recent EPS episode (noted elsewhere) - Actigall for VOD ppx - Omeprazole for GI ppx - Appreciate social work consult - Zyrtec and Dilaudid PO for bone pain #Fluid volume overload (resolved) #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 CXR w/ mild interstitial pulm edema & bibasilar linear atelectasis. Fine crackles and BLE edema on exam. c/f engraftment syndrome. s/p Solumedrol 1mg/kg on 09/08, 0.5mg/kg on 09/09, and 0.25mg/kg on 09/10. ROLAND on 09/11 (-). O2 requirement and symptoms improve with intermittent diuresis. Had desaturation episode overnight 09/13-09/14, received Lasix 40 mg IV and now back on room air this morning. - Incentive spirometry - Monitor I&Os - Consider diuresis as needed #Mucositis- (resolved) Developed grade 3 mucositis. Per patient, oxycodone makes her feel strange, rotated to Dilaudid. On 09/04 pt reports worsening mucositis, required dilaudid BLACKJACK PIT BOSS with good effect. BLACKJACK PIT BOSS discontinued 09/11. TPN stopped on 09/14 - PRN Dilaudid 0.2-0.4mg IV or 2-4mg PO for pain - Omeprazole as noted elsewhere - Magic mouth wash PRN Assessment & Plan (05/05/2022 9:57 AM EST): Last chemo 04/24 with granulocyte colony-stimulating factor given on 04/27 ANC today at 2.83. Will continue monitoring. Hemoglobin remained stable but borderline at 6.9. Will hold off transfusions. Platelets stable at 95 HTN (hypertension) 07/02/2020 Assessment & Plan (06/05/2024 4:00 AM EST): -Continue labetalol and prazosin with hold parameters -Frequent blood pressure monitoring Assessment & Plan (06/04/2024 3:18 PM EST): - cont labetalol and prazosin with hold parameters (risk for hypotension with concern for sepsis) Assessment & Plan (03/12/2023 9:35 AM EST): When she is not sick, her blood pressure is normal on 2 mg of prazosin nightly. She will continue this. I suspect her recent low-normal BP readings are due to her acute illness. Assessment & Plan (09/18/2022 5:55 PM EDT): Home medical regimen continued with prazosin. Blood pressure normotensive. Vital sign monitoring. Assessment & Plan (05/24/2022 1:39 PM EST): Continue with clonidine and prazosin - blood pressures are stable Assessment & Plan (05/04/2022 10:30 AM EST): Continue clonidine and prazosin Mild intermittent asthma without complication Assessment & Plan (07/07/2022 4:24 PM EST): -Tubular breath sounds but currently no wheezing, -Continue Advair and albuterol Assessment & Plan (05/05/2022 9:57 AM EST): Feels part of her cough is related to bronchospasm along with her baseline sarcoid cough. Cough is nonproductive. Getting DuoNebs 4 times daily with some minimal improvement reported. Her exam is consistent with bronchospastic element, no rales. Complaining of rib pain with coughing and as asked for some oxycodone which we will allow.. -Will continue Advair --Continue DuoNebs 4 times daily -Continue to avoid steroids for now as her oxygenation and air exchange is reasonable and she despises the way they make her feel. Of note, she is on intermittent steroid therapy around the time of her chemo. Pulmonary nodules 05/28/2020 HUNG (dyspnea on exertion) 05/03/2020 Gastroesophageal reflux disease without esophagi tis 02/06/2019 Assessment & Plan (06/05/2023 3:05 AM EST): Continue protonix and Pepcid. Assessment & Plan (05/04/2022 10:30 AM EST): Continue PPI with formulary substitution Assessment & Plan (02/09/2019 10:35 AM EDT): Avoid late, large, spicy meals. Keep headboard elevated at 45 angle for nighttime. History of uveitis 02/06/2019 Assessment & Plan (02/09/2019 10:42 AM EDT): Regular checkup with her business editor as scheduled or as needed. Unexplained weight gain 02/06/2019 Assessment & Plan (02/09/2019 10:34 AM EDT): Portion control. Limit concentrated sugars, saturated fats and calories in the diet. Keep well-hydrated. If unable to achieve expected goal consider formal dietary/nutritional support. Vitamin D insufficiency 02/06/2019 Assessment & Plan (02/09/2019 10:34 AM EDT): Proper daily requirements reviewed and serum level requested to make sure that there is no need for additional supplementation. Tobacco dependence 02/06/2019 Assessment & Plan (02/09/2019 10:36 AM EDT): I have spent at least 3 minutes on encouraging her to work on complete smoking cessation by reducing number of cigarettes smoked daily by 1 cigarette every week and be ready for dealing with cravings by stocking finger size healthy snacks such as small carrots, cucumbers, celery sticks etc. I reviewed with her multiple benefits of complete smoking cessation including but not limited to reducing the risk of developing lung cancer, bladder cancer, cervical cancer, stroke and heart attack. Additionally she will improve her taste and smell sensation. Septic shock Resolved Problems Problem Noted Date Diagnosed Date Resolved Date Fluid overload 07/28/2023 07/31/2023 Assessment & Plan (07/30/2023 1:54 PM EDT): Patient noted to have new hypoxia 07/27 requiring up to 2L iso grade 2 CRS which briefly improved s/p toci. CXR unremarkable. Patient found to be 83% on RA with initiation of fluids for Cytoxan requiring up to 3LNC to maintain SpO2 >92%. Weight up and TBB positive >2L/day. New trace BLE edema as of 07/28 c/w fluid overload. Received Lasix 20mg with good effect. On 07/29, pt c/o brief chest discomfort and dyspnea in setting of FVO compounded with anxiety. ECG without ischemic changes. Troponin minimally elevated at 10 but less than baseline. - Supplemental O2 PRN and wean as tolerated - Furosemide 20mg x1 in AM; consider additional diuresis PRN - anxiety management as elsewhere noted Rash 07/26/2023 07/29/2023 Assessment & Plan (07/28/2023 2:31 PM EDT): Patient noted to have erythema to chest, abdomen, BUE, and face 07/25 with mild pruritus. Ddx includes drug rash vs infection vs contact dermatis. Os of 07/27, rash stable/improved. - CTM - Benadryl PRN for pruritus - Consider rotating cefepime to ceftazidime if rash continues to worsen GEORGE (acute kidney injury) 07/25/2023 Assessment & Plan (07/27/2023 1:02 PM EDT): Rise in serum creatinine to 1.3 w/ fevers and hypotension. GEORGE ddx includes drug, hypovolemia, infection. S/p 3L IVF and started mIVF. CT CAP w/ no convincing infectious etiology. GEORGE noted after receiving IV contrast for CT imaging. Baseline creatinine 0.6-0.8. - CTM - IVF PRN Abdominal pain 07/24/2023 07/31/2023 Assessment & Plan (07/31/2023 3:35 PM EDT): Hx of GERD Takes Famotidine and Omeprazole at home. Mild epigastric tenderness on exam w/ associated nausea on 07/28/23. EKG normal w/ unremarkable troponin. Lipase WNL. CTAP unremarkable. PPI increased to BID 07/24. No epigastric pain reported since 07/24. - Omeprazole 40 mg BID - Famotidine 40mg daily - Nausea management as noted elsewhere - Oxycodone PRN Headache 07/22/2023 08/04/2023 Assessment & Plan (08/04/2023 12:15 PM EDT): Recurrent intermittent headaches x2 weeks. No visual or neurological deficits. Symptoms c/w tension vs. migraine headaches. CT heads negative. - low threshold for CT head if worsening SNYDER +/- neurological changes - trial caffeine tabletsa - tylenol/oxycodone PRN - magnesium supplementation Assessment & Plan (07/29/2023 1:46 PM EDT): Patient endorses headache of approximately 2 weeks duration beginning SAFETY INSTRUCTOR that is described as dull, wave-like and is behind my eyes . No associated nausea/vomiting, phonophobia, photophobia with headaches. Tylenol w/ limited effect. Oxycodone 10 mg helpful. Reports 1-2 caffeinated beverages daily at home. MRI Brain 05/2023 for memory loss unremarkable. Unclear etiology of headache. Patient with increase frequency of SNYDER's and intermittent blurry vision 07/27 of unknown chronicity. Exam without focal neurological changes. Blurry vision resolves without intervention with patient being more wakeful. CT head 07/27 negative. - Limit Zofran as may be exacerbating headache - Continue APAP 650 mg Q6H PRN - Oxycodone 5-10 mg Q6H PRN - trial Pseudoephedrine PRN for ?congestion headache - Defer trial of Fioricet unless discussion w/ pharmacy given c/f drug interaction Elevated LFTs 09/19/2022 08/14/2023 Assessment & Plan (08/09/2023 8:28 PM EDT): Patient noted to have rise in LFTs 07/25 above her baselines. AST to 210 and ALT 207 and Alk phos 127 on 07/29/23. Bilis remain WNL. CT A/P unremarkable. Elevated LFTs likely related to grade 2 CRS and hypotension compounded by receiving Tylenol, Fluconazole, and Tocilizumab. LFTs improved with resolution of CRS and holding Fluconazole in favor of Micafungin 07/28-08/03. - Limit hepatotoxic medications as able - CTM with resumption of Fluconazole (restarted 08/03) Assessment & Plan (09/19/2022 3:54 PM EDT): Given mild elevation in LFTs, consider checking for hepatitis A, hepatitis B DNA, and hepatitis C PCR because reactivation of previous hepatitis may be possible Shock 09/19/2022 01/04/2023 Asthma 09/18/2022 01/04/2023 Assessment & Plan (09/18/2022 5:58 PM EDT): As needed albuterol and advair available if needed. No signs or symptoms of acute exacerbation. Extrapyramidal movement diso rder, drug-induced 09/06/2022 09/15/2022 Assessment & Plan (09/12/2022 3:01 PM EDT): On 09/05 ~20 min s/p Haldol dose x1, pt presented with sudden buckling of the knees and wobbly legs. Exam notable for 5/5 strength b/l and cranial nerves intact. Given timing, EPS-like presentation likely drug-induced and scheduled Haldol subsequently stopped. ~630pm, EPS worsens with acute dystonic movements, progressive dysarthria and became rigid requiring 25 mg IV benadryl and 1 mg IV ativan with good effect. Discontinued benadryl Q6H PRN, as this has not reoccurred. - Per psych, do not give Haldol, but ok to give olanzapine. - Continue to monitor FUO (fever of unknown origin) 07/06/2022 02/08/2023 Assessment & Plan (07/07/2022 4:19 PM EST): -Patient presented with low-grade temp of 100.6, with tachycardia and hypotension -No obvious source of infection found -UA negative, chest x-ray clear -CT face negative for sinusitis -CT abdomen/pelvis negative for any acute pathology -Positive for COVID-19 however she tested positive about 3 weeks ago and completed a course of Paxlovid. Patient is remained afebrile since admission to the hospital -Cultures remain negative -Calcitonin is trended down to 0.4 from a high of 1.23 -Hepatology serologies with no evidence of acute hepatitis. -Viral respiratory pathogen panel is pending. Plan - Continue to hold off on antibiotics - Follow fever curve and blood cultures. -Follow-up ID consult Sepsis due to pneumonia 05/23/202212/07 Assessment & Plan (05/27/2022 3:02 PM EST): Sepsis type picture at time of admission with fever, tachycardia, tachypnea and leukopenia. Initially concern for pneumonia chest x-ray without definite infiltrate and procalcitonin was not elevated. She has improved clinically with supportive management -- Continue observation off antibiotics Fever, unspecified fever cause 05/04/2022 01/04/2023 Assessment & Plan (05/05/2022 9:54 AM EST): 36-hour history of cough and fever in the setting of ongoing chemotherapy and immunosuppression. Viral respiratory panel is negative, chest x-ray shows no infiltrate. Admission exam notable for expiratory wheezing and barking cough. ANC on admission was 1200. Fevers continued overnight, T-max 102.2. Antibiotics were stopped after initial dose of meropenem in ED. Today blood culture positive for gram-positive cocci in clusters. Vancomycin started pending further identification. White blood cell count today up slightly with ANC rising from 1.29 now at 2.83 with total white count of 4.49 Pre-operative cardiovascular examination 02/08/2022 01/04/2023 Sarcoidosis 05/15/2017 01/04/2023 Assessment & Plan (02/09/2019 10:40 AM EDT): I took the liberty of getting a new set of labs today and request release of prior records particularly reported PET CT scan that documented cardiac involvement at [facility]. Since her mother also has sarcoid cardiac involvement and sees a railroad repairer as she believes in [place] I requested her to check with her mother the name of this railroad repairer so I could coordinate her personal assessment by the same railroad repairer. I would defer treatment plan until we have complete evaluation of the extent of her end organ involvement with sarcoidosis. On today's examination except for mild tenderness on squeezing right wrist and pain on resisted flexion in her right arm there were no signs of active synovitis. Assessment & Plan (12/14/2017 8:40 AM EDT): Blood work and EKG are unremarkable. Will await PFT results from [facility] recently performed (have been normal in the past). Will repeat PFT and blood work in 6 months (mid-June), and see you in follow-up thereafter. Assessment & Plan (08/15/2017 8:49 AM EDT): PFT are normal, as well as kidney and liver function. IL-2 receptor elevated, will recheck all blood work and PFT in 6 months, but will not initiate immunosuppressive therapy at this time. Call us with any clinical change in the next 6 months. Assessment & Plan (05/15/2017 9:32 AM EST): Diagnosed via lymph node biopsy of the left occipital chain in May 2016. Need to establish baseline organ function via comprehensive blood work, pulmonary function, EKG and urine studies. Return to see me after testing is been performed. Uveitis 05/15/2017 02/08/2023 Assessment & Plan (12/14/2017 8:40 AM EDT): Encouraged patient to make an appointment with Dr Franco given ongoing eye symptoms and known uveitis. Assessment & Plan (08/15/2017 8:50 AM EDT): You should be seen by ophthalmology annually. Make sure to schedule appointments accordingly. Assessment & Plan (05/15/2017 9:33 AM EST): Reiterated the importance of seeing ophthalmology for further evaluation and management. Encounters Date Type Department Care Team Description 02/18/2025 Refill [facility] [address] [place] [address], 9th Floor, [address], [place] [address] Krysta Villagomez FNP Medication Refill 02/17/2025 Transcribe Orders Virtual Department [address] [place] [address] Soco Alexis NP Breast screening (Primary Dx) 02/12/2025 8:09 AM EDT - 02/12/2025 11:59 PM EDT Hospital Encounter [facility] [address] [place] [address] Krysta Villagomez FNP Discharge Disposition: Home or Self Care 02/12/2025 Orders Only [facility] [address] [place] [address], 9th Floor, [address] [place] [address] Krysta Villagomez FNP 02/12/2025 Orders Only [facility] [address] [place] [address], 9th Floor, [address] [place] [address] Krysta Villagomez FNP 02/05/2025 Orders Only [facility] [address] [place] [phone] Keily Gómez, FREIGHT FORWARDER 02/04/2025 Telephone [facility] [address] [place] [address], [address] [place] [address] Gudelia Eason MD Medication Prior Authorization 01/30/2025 3:30 PM EDT Telemedicine [facility] [address] [place] [address], 9th Floor, [address] [place] [address] Nico Patel MD 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 (Primary Dx); S/P allogeneic bone marrow transplant; Graft vs host disease; Sarcoidosis of lymph nodes; Sacral insufficiency fracture with delayed healing 01/28/2025 11:44 AM EDT - 01/28/2025 11:59 PM EDT Hospital Encounter [facility] [address] [place] [address] Krysta Villagomez FNP Discharge Disposition: Home or Self Care 01/28/2025 Telephone [facility] [address] [place] [address], 9th Floor, [address] [place] [address] Ita Juan RN 01/27/2025 Orders Only [facility] [address] [place] [phone] Keily Gómez, AUBREE 01/19/2025 Orders Only [facility] [address] [place] [address], 9th Floor, [address] [place] [address] Krysta Villagomez FNP 01/06/2025 1:00 PM EDT Telemedicine [facility] [address] [facility], [address] [place] [address] Gudelia Eason MD Chronic GVHD (Primary Dx); Irritable bowel syndrome with diarrhea; Functional dyspepsia 01/01/2025 4:00 PM EDT Telemedicine [facility] [address] [facility], 9th Floor, [address] [place] [address] Krysta Villagomez FNP S/P allogeneic bone marrow transplant (Primary Dx); Localized edema; 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; Graft vs host disease; High risk medications (not anticoagulants) long-term use 01/01/2025 Procedure Pass [facility] [address] [place] [address] 01/01/2025 Orders Only [facility] [address] [facility], 9th Floor, [address] [place] [address] Nico Paetl MD 12/25/2024 2:04 PM EDT - 12/25/2024 11:59 PM EDT Hospital Encounter [facility] [address] [place] [address] Keily Gómez CNP Discharge Disposition: Home or Self Care 12/17/2024 1:45 PM EDT - 12/17/2024 2:45 PM EDT Surgery [facility]O [facility]PT [address] [facility], 4th [place] [address] Chan Caballero MD COLONOSCOPY 12/17/2024 11:57 AM EDT - 12/17/2024 3:33 PM EDT Hospital Encounter [facility] ENDO DEPT [address] [facility], 4th [place] [address] Chan Caballero MD Discharge Disposition: Home or Self Care 12/17/2024 Procedure Pass [facility] ENDO DEPT [address] [facility], 4th [place] [address] 12/16/2024 2:00 PM EDT Office Visit [facility] [address] [facility], 9th Floor, [address] [place] [address] Keily Gómez CNP S/P allogeneic bone marrow transplant (Primary Dx); 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 12/16/2024 1:00 PM EDT Infusion [facility] [address] [place] [address], 9th Floor, [address], [place] [address] Nico Patel MD Jordan, Donna, OLIVIA 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; S/P allogeneic bone marrow transplant; Graft vs host disease 12/15/2024 Telephone [facility] [address] [place] [address], 9th Floor, [address] [place] [address] Ita Juan RN 12/12/2024 Telephone [facility] [address] [place] [address], 9th Floor, [address] [place] [address] Blessing Jin, OLIVIA 12/12/2024 Orders Only [facility] [address] [place] [address], 9th Floor, [address] [place] [address] Bee Stern CNP 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 (Primary Dx); S/P allogeneic bone marrow transplant 12/12/2024 Orders Only [facility] [address] [place] [address], 9th Floor, [address] [place] [address] Nico Patel MD 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 (Primary Dx); S/P allogeneic bone marrow transplant; Graft vs host disease 12/11/2024 5:24 PM EDT - 12/11/2024 11:59 PM EDT Hospital Encounter [address] [address] Marilu Andrew NP Discharge Disposition: Home or Self Care 12/10/2024 Orders Only [facility] [address] [place] [address], 9th Floor, [address] [place] [address] Nico Patel MD 12/02/2024 11:34 AM EDT - 12/02/2024 11:59 PM EDT Hospital Encounter [address] [address] Soco Alexis NP Discharge Disposition: Home or Self Care 12/02/2024 Ancillary Orders [facility], X-Ray [address] [address] Soco Alexis, SERVICE ESTABLISHMENT ATTENDANT Acute pain of right shoulder (Primary Dx); Chest pain varying with breathing 11/26/2024 Documentation [facility] [address] [place] [phone] Juani Booth RN 11/25/2024 2:30 PM EDT Infusion [facility] Short Stay Infusion Unit, [place] [address] [facility], 9th Floor, [address] [address] Krysta Villagomez, Marianna Ontiveros RN 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 (Primary Dx) 11/25/2024 2:00 PM EDT Office Visit [facility] [address] [place] [address], 9th Floor, [address], [place] [address] Krysta Villagomez FNP 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 (Primary Dx); S/P allogeneic bone marrow transplant; Graft vs host disease; Upper respiratory tract infection, unspecified type 11/25/2024 12:45 PM EDT [facility] [address] [place] [address], 9th Floor, [address], [place] [address] Krysta Villagomez FNP Jordan, Donna, RN 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; S/P allogeneic bone marrow transplant; Graft vs host disease; Upper respiratory tract infection, unspecified type 11/25/2024 Orders Only [address], 8th Floor, [address] [place] [id number] Jumana Sahni, FREIGHT FORWARDER 11/18/2024 Procedure Pass [facility], Mri - [address] [address] 11/18/2024 Transcribe Orders Virtual Department [address] [place] [id number] Marilu Andrew, SERVICE ESTABLISHMENT ATTENDANT Spondylosis without myelopathy or radiculopathy, lumbar region (Primary Dx) from Last 3 Months Immunizations Immunization Administration Dates Next Due COVID-19 (Pre-02/26) Moderna Vaccine, mRNA, PF 09/03/2020,08/19/2020,08/06/2020,07/23 DTaP-Hep B-IPV 08/28/2024,04/25/2024 Hib,PRP-T 08/28/2024,04/25/2024 INFLUENZA, SPLIT VIRUS, TRIV ALENT W/ PRESERVATIVE IM 03/24/2011 Influenza Quadrivalent Prese rvative Free IM 02/22/2023,03/10/2022,02/10/2021,02/21,04/01/2018,02/18/2016 Influenza Quadrivalent w/ Pr eservative IM 02/17/2020 Influenza Recombinant Mari valent Preservative Free IM 03/02/2020 Influenza, Unspecified Formulation 02/04/2017 Meningococcal MCV4O 11/25/2024,08/28/2024 Pneumococcal conjugate PCV20 04/25/2024 Pneumococcal conjugate PCV21 08/28/2024 Td (adult),2 Lf Tetanus Toxo id, PF, Adsorbed 01/29/2024 Tdap 02/10/2021 Zoster recombinant 11/25/2024 Family History Medical History Relation Comments Alopecia Brother Migraines Brother Alcohol abuse Father Cardiovascular disease Father Diabetes Father Hypertension Father hepatitis c Father Heart disease Mother Hypertension Mother Sarcoidosis Mother pulmonary, cardi ac, eye and skin involvement hepatitis c Mother Lung cancer Paternal Grandmother smoker Fibromyalgia Sister 1 Diabetes Sister 2 Relation Status Comments Brother Father Alive Mother Alive Paternal Grandmother Sister 1 Sister 2 Alive Social History Tobacco Use Types Packs/Day Years Used Date Smoking Tobacco: Former Cigarettes 1 992 - 03/07/2023 Passive Smoke Exposure: Past Smokeless Tobacco: Never Tobacco Cessation:Counseling Given: No Alcohol Use Standard Drinks/Week Comments Not Currently [...] housing situation today? I have get sing 10/16/2024 How many times have you move [...] le Not on file Not on file Last Filed Vital Signs Vital Sign Reading Time Taken Comments Blood Pressure 125/75 12/17/2024 3:19 PM EDT Pulse 93 12/17/2024 3:10 PM EDT Temperature 36.3 C (97.3 F) 12/17/2024 1:36 PM EDT Respiratory Rate 24 12/17/2024 3:00 PM EDT Oxygen Saturation 99% 12/17/2024 3:10 PM EDT Inhaled Oxygen Concentration 40% 06/08/2023 3 :00 PM EST Weight 119.4 kg (263 lb 3.2 oz) 025 12:39 PM EDT Height 170.2 cm (5' 7 ) 10/13/2024 10:4 1 PM EDT Body Mass Index 41.22 10/13/2024 10:41 PM EDT Plan of Treatment Upcoming Encounters Date Type Department Care Team (Late st Contact Info) Description 02/17/2025 Procedure Pass [address] [address] 03/16/2025 8:00 AM EST Telemedicine [facility] [address] [place] [address], 9th Floor, [address] [place] [address] Krysta Villagomez FNP [address] [facility] [address] [place] [address] 10/19/2025 12:30 PM EDT Appointment [address] [address] Soco Alexis NP [address] [place] [address] Health Maintenance Due Date Last Done Comments SMOKING Hx and SMOKELESS TOBACCO SCREENING 1993 HIV ONE-TIME SCREENING (18-65 YEARS) 1998 MAMMOGRAM 2020 DEPRESSION SCREENING 05/17/2023 05/17/2022 PAP SMEAR 02/11/2024 02/10/2021, 11/09/2017 INFLUENZA VACCINE (#1) 2024 3, 03/10/2022, 02/10/2021, Additional history exists COVID-19 VACCINE ( season) 2025 09/13/2021, 09/03/2020, 08/19/2020, Additional history exists BLOOD PRESSURE 06/18/2025 12/16/2024 SCREENING FOR DIABETES 12/26/2027 5, 12/01/2024, 01/17/2024 Adult Td,Tdap Booster 01/28/2034 01/29/2024, 021 HEPATITIS C SCREENING Completed 07/06/2022, 023 HIB VACCINES Aged Out 08/28/2024, 04/25/2024 No lo nger eligible based on patient's age to complete this topic PNEUMOCOCCAL VACCINES (0-49 years) Completed 08/28/2024, 04/25/2024 MENINGOCOCCAL VACCINES (ACWY) Aged Out 11/25/2024, 08/28/2024 No longer eligibl e based on patient's age to complete this topic MENINGOCOCCAL VACCINES (B) Aged Out N o longer eligible based on patient's age to complete this topic Medical Devices Implanted Type Area Oyster Floater Device Identifier Shelf Expiration Date Model / Serial / Lot Port Powerport Isp 8fr Injectable [place] Polyurethane Catheter Implant Soft Silicone Body - [id number] Implanted:Qty: 1 on 02/16/2022 by Ya Graham MD at [facility] Right: Chest [employer] 04/05/2023 [id number] / / [id number] Procedures Procedure Name Priority Date/Time Associated Diagnosis Comments TTE COMPREHENSIVE Routine 02/12/2025 8:56 AM EDT Localized edema 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 MICROALBUMIN, URINE Routine 01/28/2025 11:54 AM EDT MICROALBUMIN/CREATININE, RAN DOM URINE Routine 01/28/2025 11:54 AM EDT TACROLIMUS LEVEL Routine 01/28/2025 11:54 AM EDT 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 Upper respiratory tract infection, unspecified type URINALYSIS Routine 01/28/2025 11:54 AM EDT Localized edema 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 TOTAL PROTEIN CREATININE RAT IO, RANDOM URINE Routine 01/28/2025 11:54 AM EDT Localized edema 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 LIPID PANEL Routine 01/28/2025 11:54 AM EDT Localized edema 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 High risk medications (not anticoagulants) long-term use CBC AND DIFFERENTIAL Routine 01/28/2025 11:54 AM EDT Localized edema 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 COMPREHENSIVE METABOLIC PANEL Routine 11:54 AM EDT Localized edema 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 LDH Routine 01/28/2025 11:54 AM EDT Localized edema 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 IMMUNOGLOBULIN G Routine 01/28/2025 11:54 AM EDT Localized edema 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 MAGNESIUM Routine 01/28/2025 11:54 AM EDT Localized edema 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 MAGNESIUM Routine 12/25/2024 2:07 PM EDT 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 LDH Routine 12/25/2024 2:07 PM EDT 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 IMMUNOGLOBULIN G Routine 12/25/2024 2:07 PM EDT 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 COMPREHENSIVE METABOLIC PANEL Routine 2:07 PM EDT 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 CBC AND DIFFERENTIAL Routine 12/25/2024 2:07 PM EDT 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 BILIRUBIN, DIRECT Routine 12/25/2024 2:07 PM EDT 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 Cytomegalovirus (CMV) PCR, blood Routine 12/25/2024 2:07 PM EDT 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 ENDOSCOPY, COLON 12/17/2024 2:22 PM EDT ANATOMIC PATHOLOGY Routine 12/17/2024 2:05 PM EDT ENDOSCOPY PROCEDURE 12/17/2024 2:00 PM EDT ESOPHAGOGASTRODUODENOSCOPY 12/17 1:58 PM EDT Nausea 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) COLONOSCOPY 12/17/2024 1:58 PM EDT Nausea 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) POCT URINE HCG STAT 12/17/2024 1:27 PM EDT TACROLIMUS LEVEL Routine 12/16/2024 12:34 PM EDT 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 MAGNESIUM Routine 12/16/2024 12:34 PM EDT 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 LDH Routine 12/16/2024 12:34 PM EDT 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 IMMUNOGLOBULIN G Routine 12/16/2024 12:34 PM EDT 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 COMPREHENSIVE METABOLIC PANEL Routine 12:34 PM EDT 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 CBC AND DIFFERENTIAL Routine 12/16/2024 12:34 PM EDT 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 Cytomegalovirus (CMV) PCR, blood Routine 12/16/2024 12:34 PM EDT 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 MRI LUMBAR SPINE (NEURO) WIT H AND WITHOUT CONTRAST Routine 12/11/2024 6:10 PM EDT Spondylosis without myelopathy or radiculopathy, lumbar region XR RIBS 3 OR MORE VIEWS WITH PA CHEST (RIGHT) Routine 12/02/2024 12:00 PM EDT Acute pain of right shoulder Chest pain varying with breathing MAGNESIUM Routine 11/25/2024 12:23 PM EDT 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 Upper respiratory tract infection, unspecified type LDH Routine 11/25/2024 12:23 PM EDT 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 Upper respiratory tract infection, unspecified type IMMUNOGLOBULIN G Routine 11/25/2024 12:23 PM EDT 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 Upper respiratory tract infection, unspecified type COMPREHENSIVE METABOLIC PANEL Routine 12:23 PM EDT 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 Upper respiratory tract infection, unspecified type CBC AND DIFFERENTIAL Routine 11/25/2024 12:23 PM EDT 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 The interventricular septum appears normal. Krysta Villagomez GLASSWARE MAKER CV ECHO ORDERABLES Final R esult * MICROALBUMIN/CREATININE, RANDOM URINE (01/28/2025 11:54 AM EDT) MICROALB/CRE RATIO NOT CALCULATED 0 - 20 mg/g Cre [facility] Comment:due to Microalbumin <1.2 01/28/2025 11:5 4 AM EDT 01/28/2025 12:13 PM EDT us Krysta Schultzalice Villagomez GLASSWARE MAKER URINE ORDERABLES Final Res ult Performing Organization Address City/[facility]/ZIP Co de Phone Number [address] [address] * TOTAL PROTEIN CREATININE RATIO, RANDOM URINE (01/28/2025 11:54 AM EDT) Pathologist [facility] [place] URINE TOTAL PROTEIN 7.0 mg/dL [facility] URINE CREATININE 136 mg/dL [facility] URINE TP CRE RATIO 0.05 0 - 0.19 [facility] Urine (Urine) 01/28/2025 11: 54 AM EDT 01/28/2025 12:13 PM EDT us [facility]INE ORDERABLES Final Res ult Performing Organization Address [facility] Co de Phone Number [address] [address] * LDH (01/28/2025 11:54 AM EDT) Only the most recent of4 resultswithin the time period is included. LDH 201 118 - 273 U/L [facility] Blood 01/28/2025 11:5 4 AM EDT 01/28/2025 12:13 PM EDT us Krysta Jimmyalice Villagomez [facility] LAB BLOOD ORDERABLES Final Result Performing Organization Address City/[facility] Co de Phone Number [address] [address] * Microalbumin, Urine (01/28/2025 11:54 AM EDT) URINE MICROALBUMIN <1.2 0 - 2.3 mg/dL [facility] 01/28/2025 11:5 4 AM EDT 01/28/2025 12:13 PM EDT us Krysta ASCENCIOP URINE ORDERABLES Final Res ult Performing Organization Address City/[facility]/ZIP Co de Phone Number [address] [address] * (ABNORMAL) Comprehensive metabolic panel (01/28/2025 11:54 AM EDT) Only the most recent of4 resultswithin the time period is included. SODIUM 139 133 - 146 mmol/L [facility] POTASSIUM 4.0 3.3 - 5.1 mmol/L [facility] CHLORIDE 106 96 - 108 mmol/L [facility] CO2 21 21 - 35 mmol/L [facility] BUN 10 6 - 19 mg/dL [facility] CREATININE 0.90 0.5 - 1.5 mg/dL [facility] GLUCOSE 126(H) 70 - 99 mg/dL [facility] ALBUMIN 4.4 3.9 - 4.8 g/dL [facility] TOTAL PROTEIN 7.4 6.5 - 8.0 g/dL [facility] CALCIUM 9.4 8.4 - 10.3 mg/dL [facility] ALKALINE PHOSPHATASE 116 39 - 117 U/L [facility] TOTAL BILIRUBIN <0.2 0.0 - 1.2 mg/dL [facility] AST 32 0 - 37 U/L [facility] ALT 32 0 - 40 U/L [facility] GLOBULIN 3.0 1 - 4.8 g/dL [facility] EGFR 81 >59 mL/min/1.7 3m2 [facility] Comment:Estimated glomerular filtration rate calculated using the CKD-EPI refit equation. ANION GAP 16 10 - 20 mmol/L [facility] Blood 01/28/2025 11:5 4 AM EDT 01/28/2025 12:13 PM EDT us Krysta HOLDER LAB BLOOD ORDERABLES Final Result [address] [address] * (ABNORMAL) Tacrolimus level (01/28/2025 11:54 AM EDT) Only the most recent of2 resultswithin the time period is included. TACROLIMUS <2.0(L) >2.0 ng/mL [facility] Comment: Therapeutic ranges depend upon the patient's clinical state, individual differences in sensitivity to the immunosuppressive and adverse effects of the particular immunosuppressant, coadministration of other immunosuppressants, time post transplant, and a number of other factors. Therefore, individual values cannot be used as the sole indicator for making changes in treatment regimen, and each patient should be evaluated clinically before changes in treatment regimens are made. Blood 01/28/2025 11:5 4 AM EDT 01/28/2025 12:13 PM EDT us Krysta ASCENCIOP LAB BLOOD ORDERABLES Final Result Performing Organization Address [facility] Co de Phone Number [address] [address] * Urinalysis (01/28/2025 11:54 AM EDT) COLOR Yellow Yellow [facility] CLARITY Clear [facility] GLUCOSE Negative Negative [facility] BILI Negative Negative [facility] KETONES Negative Negative [facility] SPECIFIC GRAVITY 1.025 1.005 - 1.030 [facility] BLOOD Negative Negative [facility] PH 6.0 5.0 - 8.0 [facility] Protein-UA Negative Negative [facility] NITRITE Negative Negative [facility] Leukocyte esterase, ur Negative Negative [facility] Urine (Urine) 01/28/2025 11: 54 AM EDT 01/28/2025 12:13 PM EDT us Krysta Villagomez GLASSWARE MAKER URINE ORDERABLES Final Res ult Performing Organization Address [facility] Co de Phone Number [address] [address] * (ABNORMAL) CBC and differential (01/28/2025 11:54 AM EDT) Only the most recent of4 resultswithin the time period is included. WBC 5.29 4.00 - 11.00 K/uL [facility] RBC 3.55(L) 4.00 - 5.20 M/uL [facility] HGB 10.6(L) 12.0 - 16.0 g/dL [facility] HCT 32.9(L) 36.0 - 46.0 % [facility] PLT 216 150 - 450 K/uL [facility] MCV 92.7 80.0 - 100.0 fL [facility] MCH 29.9 27.0 - 31.0 pg [facility] MCHC 32.2 32.0 - 36.0 g/dL [facility] RDW 13.8 11.5 - 14.5 % [facility] MPV 8.5 8.4 - 12.0 fL [facility] NRBC 0.00 0.00 /100 WBCs [facility] ABSOLUTE NRBC 0.00 0.00 K/uL [facility] DIFF METHOD Auto [facility] NEUTS 56.3 48.0 - 76.0 % [facility] LYMPHS 31.8 18.0 - 41.0 % [facility] MONOS 8.5 4.0 - 11.0 % [facility] EOS 2.6 0.0 - 5.0 % [facility] BASOS 0.4 0.0 - 1.5 % [facility] Granulocytes, immature (%) 0.4 0.0 - 0.9 % [facility] ABSOLUTE NEUTS 2.98 1.92 - 7.60 K/uL [facility] ABSOLUTE LYMPHS 1.68 0.72 - 4.10 K/uL [facility] ABSOLUTE MONOS 0.45 0.16 - 1.10 K/uL [facility] ABSOLUTE EOS 0.14 0.00 - 0.50 K/uL [facility] ABSOLUTE BASOS 0.02 0.00 - 0.15 K/uL [facility] Granulocytes, immature 0.02 0.00 - 0.09 K/uL [facility] Blood 01/28/2025 11:5 4 AM EDT 01/28/2025 12:13 PM EDT [facility] LAB BLOOD ORDERABLES Final Result Performing Organization Address [facility] Co de Phone Number [address] [address] * Magnesium (01/28/2025 11:54 AM EDT) Only the most recent of4 resultswithin the time period is included. MAGNESIUM 1.8 1.6 - 2.6 mg/dL [facility] Blood 01/28/2025 11:5 4 AM EDT 01/28/2025 12:13 PM EDT [facility] LAB BLOOD ORDERABLES Final Result Performing Organization Address [facility] de Phone Number [address] [address] * Immunoglobulin G (01/28/2025 11:54 AM EDT) Only the most recent of4 resultswithin the time period is included. Pathologist [facility] [place] IMMUNOGLOBULIN G 1,243 700 - 1,600 mg/dL [facility] Blood 01/28/2025 11:5 4 AM EDT 01/28/2025 12:13 PM EDT [facility] LAB BLOOD ORDERABLES Final Result Performing Organization Address [facility] de Phone Number [address] [address] * (ABNORMAL) Lipid panel (01/28/2025 11:54 AM EDT) HDL 31 mg/dL [facility] Comment: Interpretation <40 mg/dL: Low HDL cholesterol (major risk factor for CHD) Greater than or equal to 60 mg/dL: High HDL cholesterol ( negative risk factor for CHD) HDL - cholesterol is affected by a number of factors, e.g. smoking, excerise, hormones, sex and age. CHOLESTEROL 195 0 - 240 mg/dL [facility] TRIGLYCERIDES 360(H) 30 - 160 mg/dL [facility] LDL 92 50 - 129 mg/dL [facility] Comment: LDL levels in terms of risk for coronary heart disease: <100 mg/dL: Optimal 100-129 mg/dL: Near or above optimal 130-159 mg/dL: Borderline high 160-189 mg/dL: High >190 mg/dL: Very High CARDIAC RISK RATIO 6.3(H) 3.3 - 4.4 [facility] Blood 01/28/2025 11:5 4 AM EDT 01/28/2025 12:13 PM EDT us Krysta Villagomez GLASSWARE MAKER LAB BLOOD ORDERABLES Final Result Performing Organization Address [facility] Co de Phone Number [address] [address] * Cytomegalovirus (CMV) PCR, blood (12/25/2024 2:07 PM EDT) Only the most recent of3 resultswithin the time period is included. CMV DNA DETECT/QUANT Undetected Undetected IU/mL [facility] Comment: (NOTE) Result in log IU/mL is Undetected. ADDITIONAL INFORMATION The quantification range of this assay is 35 to 10,000,000 IU/mL (1.54 log to 7.00 log IU/mL). Testing was performed using the jai CMV test ([employer] Blood (Blood) 12/25/2024 2:0 7 PM EDT 12/25/2024 2:18 PM EDT us Keily Gómez FREIGHT FORWARDER NON CULTURE MICROBIOLOGY Final Result Performing Organization Address [facility] Co de Phone Number [facility] [address] [place] [address] * Bilirubin, direct (12/25/2024 2:07 PM EDT) DIRECT BILIRUBIN 0.1 0.0 - 0.2 mg/dL [facility] Blood 12/25/2024 2:07 PM EDT 12/25/2024 2:18 PM EDT Keily Gómez [facility] LAB BLOOD ORDERABLES Molly l Result [facility] [address] [place] [address] * ENDOSCOPY, COLON (12/17/2024 2:22 PM EDT) 12/17/2024 2:22 PM EDT Narrative Transcriptions Chan Caballero MD - 12/17/2024 2:22 PM EDT G[facility] Endoscopy Unit Patient Name: Vicki Moreno Exam Date: 12/17/2024 2:22 PM Date of : 1980 Admit Type: Outpatient Age: 43 Room: [place] [address] Gender: Female Note Status: Finalized Attending MD: Chan Caballero MD, Procedure: Colonoscopy Indications: Chronic diarrhea Providers: Chan Caballero MD, Anjali Rutledge MD Referring MD: Rachana Otto (Referring MD) Medicines: Fentanyl 25 micrograms IV Complications: No immediate complications. Procedure: After obtaining informed consent, the endoscope was passed under direct vision. Throughout the procedure, the patient's blood pressure, pulse, and oxygen saturations were monitored continuously . The Endoscope was introduced through the anus and advanced to the the terminal ileum. The colonoscopy was performed without difficulty. The patient tolerated the procedure well. The quality of the bowel preparation was evaluated using the BBPS ([place] Bowel Preparation Scale) with scores of: Right Colon = 3, Transverse Colon = 3 and Left Colon = 3 (entire mucosa seen well with no residual staining, small fragments of stool or opaque liquid). The total BBPS score equals 9. Findings: Patchy erythema and loss of submucosal vascular pattern in the left colon Impression: - KARINA normal - Subtle patchy loss of submucosal vasculature and erythema in the left colon; random proximal and left colon biopsies performed without difficulty - Otherwise normal exam to cecum with ileal intubation - Ascending colon examined twice on anterograde view, MSG and computer-aided detection technology utilized - WT = 13 minutes Recommendation: #1 resume usual diet #2 resume usual medications #3 I will contact you with biopsy results by letter within 2 weeks; please contact my office if you have not heard from me by that time. #4 Follow-up with Dr. Eason as planned Attending Participation: I was personally present throughout the entire procedure. I was present from the first injection of medications for sedation and continuously for the administration and monitoring of sedation for 30 minutes. The patient's sedation level was moderate. The patients post-sedation status at the end of the procedure was stable. Chan Caballero MD, [id number] 12/17/2024 2:47:20 PM The attending physician was present throughout the entire procedure. Anjali Rutledge MD, [id number] Number of Addenda: 0 Note Initiated On: 12/17/2024 2:22 PM us Rachana Otto MD GI PROCEDURE ORDERABLES Molly l Result * Anatomic Pathology (12/17/2024 2:05 PM EDT) [place] [address] Surgical Pathology Report Patient Name: PARENTVICKI : 1980 (Age: 43) Sex: F [facility] [place] [facility] [place] of Operation: 12/17/2024 Date of Reported: 12/18/2024 11:04 Results To: Chan Eason MD FINAL PATHOLOGIC DIAGNOSIS: A. STOMACH BIOPSY: Gastric antral and body/fundic mucosa with chronic inactive gastritis and scattered epithelial apoptosis, see NOTE. No intestinal metaplasia. An immunohistochemical stain for Helicobacter pylori is pending and will be reported in an addendum. B. DUODENUM BIOPSY: Duodenal mucosa with rare epithelial apoptosis, see NOTE C. COLON BIOPSY, RANDOM: Mildly active colitis with mildly increased epithelial apoptosis. NOTE: The differential diagnosis includes medication effects (MMF) or very mild hxjsx-vjasdk-mksk disease. No viral cytopathic effects identified. Immunohistochemical stains for CMV are pending and will be reported as an addendum. The diagnosis was communicated to Jamin Sewell, and Kia Eason by Dr. Jamin Mcclure via email 12/18/2024 at 11:03 am. Electronically Signed Out By Stephan Mcclure MD, PHD Resident Pathologist: Hira Moncada MD, PHD By his/her signature above, the pathologist listed as making the Final Diagnosis certifies that he/she has personally reviewed the case and confirmed the diagnosis. All slides and stains were of sufficient quality to establish the diagnosis, unless otherwise stated. PROCEDURES/ADDENDA ADDENDUM Ordered Date: 2024 A. STOMACH BIOPSY: Immunohistochemical stains for H. pylori and CMV are negative. B. DUODENUM BIOPSY: An immunohistochemical stain for CMV is negative. C. COLON BIOPSY, RANDOM: An immunohistochemical stain for CMV is negative. CLINICAL HISTORY Nausea Functional diarrhea GVHD (krqwx-efnwgd-viqh disease) Rule out GVHD SPECIMENS SUBMITTED: A: STOMACH BIOPSY B: DUODENUM BIOPSY C: COLON BIOPSY, RANDOM GROSS DESCRIPTION Received 3 containers each labeled Parent, Vicki and ) A. Received in formalin and labeled stomach are 4 navarrete-brown soft tissue fragments ranging from 0.4 x 0.2 x 0.1 cm to 0.7 x 0.3 x 0.1 cm. Wrapped and submitted entirely in A1. B. Received in formalin and labeled duodenum are 4 navarrete-brown soft tissue fragments ranging from 0.4 x 0.2 x 0.2 cm to 0.7 x 0.3 x 0.1 cm. Wrapped and submitted entirely in B1. C. Received in formalin and labeled random colon biopsies are 5 navarrete-brown soft tissue fragments ranging from 0.3 x 0.2 x 0.2 cm to 0.7 x 0.3 x 0.1 cm. Wrapped and submitted entirely in C1. Grossed by: Jeff Fox Immunohistochemical and in-situ hybridization tests performed at [facility] have been developed and their performance characteristics determined by the [facility] Laboratories in the Department of Pathology at [facility]. They have not been cleared or approved by the U.S.Food and Drug Administration (FDA); the FDA has determined that such clearance or approval is not necessary. [facility] Addendum A. STOMACH BIOPSY: Immunohistochemical stains for H. pylori and CMV are negative.B. DUODENUM BIOPSY: An immunohistochemical stain for CMV is negative.C. COLON BIOPSY, RANDOM: An immunohistochemical stain for CMV is negative. [facility] Clinical History Nausea Functional diarrhea GVHD (bxgwl-fwzjas-ulzm disease) Rule out GVHD [facility] Final Diagnosis A. STOMACH BIOPSY: Gastric antral and body/fundic mucosa with chronic inactive gastritis and scattered epithelial apoptosis, see NOTE. No intestinal metaplasia. An immunohistochemical stain for Helicobacter pylori is pending and will be reported in an addendum. B. DUODENUM BIOPSY: Duodenal mucosa with rare epithelial apoptosis, see NOTE C. COLON BIOPSY, RANDOM: Mildly active colitis with mildly increased epithelial apoptosis. NOTE: The differential diagnosis includes medication effects (MMF) or very mild dvhcf-satobq-wxca disease. No viral cytopathic effects identified. Immunohistochemical stains for CMV are pending and will be reported as an addendum. The diagnosis was communicated to Jamin Sewell, and Kia Eason by Dr. Jamin Mcclure via email 12/18/2024 at 11:03 am. [facility] Gross Description Received 3 containers each labeled Parent, Vicki and ) A. Received in formalin and labeled stomach are 4 navarrtee-brown soft tissue fragments ranging from 0.4 x 0.2 x 0.1 cm to 0.7 x 0.3 x 0.1 cm. Wrapped and submitted entirely in A1. B. Received in formalin and labeled duodenum are 4 navarrete-brown soft tissue fragments ranging from 0.4 x 0.2 x 0.2 cm to 0.7 x 0.3 x 0.1 cm. Wrapped and submitted entirely in B1. C. Received in formalin and labeled random colon biopsies are 5 navarrete-brown soft tissue fragments ranging from 0.3 x 0.2 x 0.2 cm to 0.7 x 0.3 x 0.1 cm. Wrapped and submitted entirely in C1. [facility] Conversion Type 12/17/2024 2 :05 PM EDT 12/17/2024 4:44 PM EDT us Chan Caballero MD PATHOLOGY ORDERABLES Edited Re sult - Final [facility] [address] [place] [address] * ENDOSCOPY PROCEDURE (12/17/2024 2:00 PM EDT) 12/17/2024 2:00 PM EDT Narrative Transcriptions Chan Caballero MD - 12/17/2024 2:00 PM EDT Gastrointestinal Endoscopy Unit Patient Name: Vicki Moreno Exam Date: 12/17/2024 2:00 PM Date of : 1980 Admit Type: Outpatient Age: 43 Room: [place] [address] Gender: Female Note Status: Finalized Attending MD: Chan Caballero MD, Procedure: Upper GI endoscopy Indications: Nausea and diarrhea Providers: Chan Caballero MD, Anjali Rutledge MD Referring MD: Rachana Otto (Referring MD) Medicines: Fentanyl 125 micrograms IV, Midazolam 8 mg IV Complications: No immediate complications. Procedure: After obtaining informed consent, the endoscope was passed under direct vision. Throughout the procedure, the patient's blood pressure, pulse, and oxygen saturations were monitored continuously. The Endoscope was introduced through the mouth, and advanced to the second part of duodenum. The upper GI endoscopy was accomplished without difficulty. The patient tolerated the procedure well. Findings: Normal examination, Estimated blood loss: none. Estimated blood loss: none. Impression: - Normal exam to the second portion of the duodenum; random gastric and duodenal biopsies performed without difficulty Recommendation: #1 resume usual diet #2 resume usual medications #3 I will contact you with biopsy results by letter within 2 weeks; please contact my office if you have not heard from me by that time. #4 Follow-up with Dr. Eason as planned #5 Proceed to colonoscopy Attending Participation: I was personally present throughout the entire procedure. I was present from the first injection of medications for sedation and continuously for the administration and monitoring of sedation for 20 minutes. The patient's sedation level was moderate. The patients post-sedation status at the end of the procedure was stable. Chan Caballero MD, [id number] 12/17/2024 2:21:58 PM The attending physician was present throughout the entire procedure. Anjali Rutledge MD, [id number] Number of Addenda: 0 Note Initiated On: 12/17/2024 2:00 PM CC Letter to: Gudelia Eason MD (CC) Rachana Otto MD GI PROCEDURE ORDERABLES Molly l Result * Poct Urine HCG (12/17/2024 1:27 PM EDT) HCG, urine Negative, Internal QCs acceptable Negative 12/17/2024 1:27 PM EDT hCan Caballero MD POINT OF CARE TEST ORDERABLES Final Result * MRI LUMBAR SPINE (NEURO) WITH AND WITHOUT CONTRAST (12/11/2024 6:10 PM EDT) Anatomical Region Laterality Modality L-spine Magnetic Resonan ce 12/15/2024 12:1 8 PM EDT Impressions 12/15/2024 12:43 PM EDT 1. Heterogeneous bone marrow signal. 2. No abnormal enhancement identified in the spine or spinal canal. 3. Degenerative disc disease and facet joint arthropathy at L4-L5 without significant canal stenosis or high-grade foramina stenosis. Narrative 12/15/2024 12:43 PM EDT MRI LUMBAR SPINE (NEURO) WITH AND WITHOUT CONTRAST Referring clinician's provided indication for this examination in Epic: Outside Radiology Order; spondylosis Peripheral Tcell lymphoma. Susanna anal pain. TECHNIQUE: MRI LUMBAR SPINE (NEURO) WITH AND WITHOUT CONTRAST Multi-sequence, multi-planar MRI of the lumbar spine was performed without and with intravenous contrast. COMPARISON: Lumbar spine radiograph January 17, 2024. FINDINGS: LUMBAR SPINE: Alignment and Vertebrae: Vertebral alignment and body heights are normal. No compression fracture. Marrow: The bone marrow is heterogeneous on the T1 and T2-weighted sequence, nonspecific. No discrete abnormality detected on the STIR sequence. Discs and Endplates: There is imcb-va-rikqthfc loss of disc height and signal at L4-L5. Conus: The tip of the conus ends at L1. Contrast: No abnormal enhancement. Soft Tissue: No prevertebral edema. Other Findings: None. Findings by level: T12-L1: No spinal or foraminal stenosis. L1-L2: No spinal or foraminal stenosis. L2-L3: No spinal or foraminal stenosis. L3-L4: No spinal or foraminal stenosis. L4-L5: Disc bulge and mild facet joint arthropathy. No significant spinal canal stenosis or high-grade foraminal stenosis. L5-S1: Mild facet arthropathy. No spinal or foraminal stenosis. Procedure Note Yusef Herring MD - 12/15/2024 MRI LUMBAR SPINE (NEURO) WITH AND WITHOUT CONTRAST Referring clinician's provided indication for this examination in Epic:Outside Radiology Order; spondylosis Peripheral Tcell lymphoma. Susanna anal pain. TECHNIQUE: MRI LUMBAR SPINE (NEURO) WITH AND WITHOUT CONTRAST Multi-sequence, multi-planar MRI of the lumbar spine was performed withoutand with intravenous contrast. COMPARISON: Lumbar spine radiograph January 17, 2024. FINDINGS: LUMBAR SPINE: Alignment and Vertebrae: Vertebral alignment and body heights are normal.No compression fracture. Marrow: The bone marrow is heterogeneous on the T1 and T2-weightedsequence, nonspecific. No discrete abnormality detected on the STIRsequence. Discs and Endplates: There is bydt-dh-djborbbx loss of disc height andsignal at L4-L5. Conus: The tip of the conus ends at L1. Contrast: No abnormal enhancement. Soft Tissue: No prevertebral edema. Other Findings: None. Findings by level: T12-L1: No spinal or foraminal stenosis. L1-L2: No spinal or foraminal stenosis. L2-L3: No spinal or foraminal stenosis. L3-L4: No spinal or foraminal stenosis. L4-L5: Disc bulge and mild facet joint arthropathy. No significant spinalcanal stenosis or high-grade foraminal stenosis. L5-S1: Mild facet arthropathy. No spinal or foraminal stenosis. IMPRESSION: 1. Heterogeneous bone marrow signal. 2. No abnormal enhancement identified in the spine or spinal canal. 3. Degenerative disc disease and facet joint arthropathy at L4-L5 withoutsignificant canal stenosis or high-grade foramina stenosis. Marilu Andrew SERVICE ESTABLISHMENT ATTENDANT IMG MR XSPECIALTY Final Result * XR RIBS 3 OR MORE VIEWS WITH PA CHEST (RIGHT) (12/02/2024 12:00 PM EDT) Anatomical Region Laterality Modality Chest Computed Radiogr aphy 12/03/2024 10:0 8 AM EDT Impressions 12/03/2024 10:11 AM EDT No displaced right-sided rib fracture identified. Narrative 12/03/2024 10:11 AM EDT XR RIBS 3 OR MORE VIEWS WITH PA CHEST (RIGHT) Referring clinician's provided indication for this examination in [facility]: Pain COMPARISON: 10/13/2024 FINDINGS: No displaced right-sided rib fracture identified. PA evaluation of the chest performed. Lung volumes are low. No convincing evidence for lobar pneumonia or pulmonary edema. No significant pleural effusions or pneumothorax. Cardiac mediastinal silhouette appears stable. Right-sided chest port with distal tip near the atrial caval junction.. Procedure Note Didier Goyal MD - 12/03/2024 XR RIBS 3 OR MORE VIEWS WITH PA CHEST (RIGHT) Referring clinician's provided indication for this examination in [facility]:Pain COMPARISON: 10/13/2024 FINDINGS: No displaced right-sided rib fracture identified. PA evaluation of the chest performed. Lung volumes are low. No convincingevidence for lobar pneumonia or pulmonary edema. No significant pleuraleffusions or pneumothorax. Cardiac mediastinal silhouette appears stable.Right-sided chest port with distal tip near the atrial caval junction.. IMPRESSION: No displaced right-sided rib fracture identified. Soco Alexis SERVICE ESTABLISHMENT ATTENDANT IMG XR CHEST Final Result * Hepatitis C antibody, qualitative (07/06/2022 8:39 PM EST) HCV NON-REACTIV E NON-REACTI VE [facility] Blood 07/06/2022 8:39 PM EST 07/06/2022 8:45 PM EST us Kell A Angolan DO LAB BLOOD ORDERABLES Final Re sult [address] [address] * Pap Smear (02/10/2021 12:00 AM EDT) 02/10/2021 02/11/2021 9:0 9 AM EDT Narrative SEE NARRATIVE - 02/22/2021 3:15 PM EDT [address] [address] Linux Engineer: Katerine Monge MD BI REPORT DEVELOPER Cytology Report FINAL DIAGNOSIS A. PAP SMEAR (SUREPATH) CE: SPECIMEN ADEQUACY: Satisfactory for evaluation; transformation zone present. INTERPRETATION: NEGATIVE FOR INTRAEPITHELIAL LESION OR MALIGNANCY. Electronically Signed Out By: CHAY Grace(ASCP) The Pap test is a screening test primarily for squamous cancers and precursors and has associated false-negative and false-positive results. New technologies such as liquid-based preparations may decrease but will not eliminate all false-negative results. Regular sampling and follow-up of unexplained clinical signs and symptoms are recommended to minimize false negative results. PROCEDURES/ADDENDA HPV Testing (Requested) Ordered Date: 02/11/2021 A. PAP SMEAR (SUREPATH) CE: Human Papilloma Virus Test Negative for high-risk human papillomavirus types 16, 18, 45 and the Other high risk probe set (Includes 31, 33, 35, 39, 51, 52, 56, 58, 59, 66, 68) by [employer] Onclarity HR-HPV analysis. Clinical correlation is advised. This HPV test was performed at [facility], [address] [place] [address]. This test has been FDA approved for SurePath cervical cytology specimens. The accuracy and precision of this test for all other specimen sources has been verified in the Cytopathology Laboratory of the [facility] and has not been cleared or approved by the U.S. Food and Drug Administration. Clinical correlation is advised. CLINICAL HISTORY Date of Last Menstrual Period: Not Provided Menstrual History: Unknown Other Clinical Conditions: Screening Pap SPECIMEN SOURCE A: PAP SMEAR (SUREPATH) CE Patient Name: VICKI MORENO : 1980 (Age: 40) Sex: F Institution: [facility] Location: [facility] Date of Collection: 02/10/2021 Date of Reported: 02/22/2021 15:15 Results to: Soco Alexis NP Soco Alexis NP CYTOLOGY ORDERABLES Final Resul t SEE NARRATIVE from Last 3 Months or Most Recently Relevant to Health Maintenance [facility] [employer] MEDICARE [place] [address] MEDICARE [place] A [place] [address] MEDICARE [place] MEDICARE PART A & B [facility] MEDICARE PART A & B Advance Directives For more information, please contact: [phone] (9AM - 5PM [facility], Sunday-Sunday) Documents on File Type Date Recorded Patient Tester Rocket Engine Expl anation Healthcare Proxy 09/19/2022 4:39 PM Sophia Pacheco n Parent * Full Code (Latest Code Status on File) Date Activated Date Inactivated Comments 10/09/2024 2:30 PM Question Answer Comments Code Status Confirmed With: Patient Code Status Communicated To: Inpatient Attending * Full Code Date Activated Date Inactivated Comments 06/07/2024 8:53 PM 10/09/2024 2:30 PM Question Answer Comments Code Status Confirmed With: PatientSurrogate * Full Code Date Activated Date Inactivated Comments 06/04/2024 4:39 PM 06/07/2024 8:53 PM Question Answer Comments Code Status Confirmed With: PatientSurrogate * Full Code Date Activated Date Inactivated Comments 10/01/2023 1:04 PM 06/04/2024 4:39 PM Question Answer Comments Code Status Confirmed With: Patient * Full Code Date Activated Date Inactivated Comments 07/18/2023 1:05 PM 10/01/2023 1:04 PM Question Answer Comments Code Status Confirmed With: Patient Code Status Communicated To: Inpatient Attending Healthcare Agents on File Name Relationship Healthcare Agent Relationship Communication Sophia Leigh Life Partner .Primary Health Care Agent (Proxy form on file) Alexy Parent Mother Alternate Health care Agent (Proxy form on file) Care Teams Otr Owner Operator Truck Driver Relationship Specialty Start Date End Date Soco Alexis NP [address] [place] [address] PCP - General Nurse Practitioner 12/02/24 Keily Maldonado CNP [address] [place] [address] Nurse Practitioner Medical Oncology 02/16/22 Nico Patel MD [address] [place] [address] [address] [place] [address] [email or web address] Primary Oncologist Hematology 07/13/22 Stuart Saunders MD [address] [place] [address] [email or web address] Primary Oncologist Medical Oncology 01/22/23 Ibis Wilson RN [address] [place] [phone] [email or web address] Primary Infusion Nurse 08/14/23 Luisa Vega [address] [place] [address] [email or web address] Music Therapist 07/25/24 Moni Argueta RN [address] [place] [address] [email or web address] Nurse Navigator 08/15/24 Additional Source Comments The information contained in this document represents components of the legal health record. It is not the complete legal health record.[facility]
--- OUTSIDE RECORDS SUMMARY | 2025-02-18 17:16 | XMS_ITS | Encounter Summary ---
Author Organization [facility] Address [address] [place] [address] Phone Care Team Providers Care Educational Technology Coordinator Name Role Phone Soco Alexis SECURITY SITE SUPERVISOR Unavailable [phone] Guru Glynn MD Unavailable Soco Alexis SECURITY SITE SUPERVISOR Primary Care Provider Keily Maldonado INTERNAL AFFAIRS COMMANDER Unavailable Cassi Carpenter PA-C Unavailable [email or web address] Azra South RN Unavailable Nico Patel MD Unavailable Paco Jean MD, MPH Unavailable [phone] Ro HardinW Unavailable [email or web address] Myranda Lloyd Unavailable [email or web address] Stuart Saunders MD Unavailable [phone] Glenna Granados HYDRAULIC MECHANIC Unavailable [phone] Rachana Otto MD Primary Care Provider [phone] Rachana Otto MD Primary Care Provider [phone] Ibis Wilson RN Unavailable Luisa Vega Unavailable [phone] Moni Argueta RN Unavailable [phone] Pcp, Unknown Primary Care Provider UnavailSoco Hodge SECURITY SITE SUPERVISOR Primary Care Provider [phone] Encounter Details Date Type Department Care Team (Late Contact Info) Description 09/10/2022 Procedure Pass [facility], [place] [address] [facility], [address] [place] [address] Social History Tobacco Use Types Packs/Day Years [...] (Late Contact Info) Description 02/17/2025 Procedure Pass [facility], [facility] [address] [place] [address] 03/16/2025 8:00 AM EST Telemedicine [facility] FOR [facility] MARROW TRANSPLANT [address] [facility], [address], [address] [place] [address] Krysta Villagomez, HYDRAULIC MECHANIC [address] [facility] [place] [address] 10/19/2025 12:30 PM EDT Appointment [facility], [facility] [address] [place] [address] Soco Alexis, SECURITY SITE SUPERVISOR [address] [place] [address] documented as of this encounter Visit Diagnoses [...] documented as of this encounter Care Teams Educational Technology Coordinator Relationship Specialty Start Date End Date Soco Alexis SECURITY SITE SUPERVISOR PCP - General Family Medicine 01/26/22 03/13/23 Rachana Otto MD [address] [place] [address] PCP - General Family Medicine 03/14/23 05/30/23 Rachana Otto MD [address] [place] [address] [place] [phone] [email or web address] PCP - General Family Medicine 05/31/23 10/20/24 Pcp, Unknown PCP - General 11/11/24 12/01/24 Soco Alexis, JADE [address] [place] [address] PCP - General Nurse Practitioner 12/02/24 Soco Alexis SECURITY SITE SUPERVISOR 03/02/17 12/01/24 Guur Glynn MD [address] [place] [address] [address] [place] [address] [email or web address] Primary Oncologist Medical Oncology 01/24/22 05/09/23 Keily Maldonado CNP [address] [place] [address] Nurse Practitioner Medical Oncology 02/16/22 Cassi Carpenter PA-C [address] [place] [address] Physician Bruise Trimmer Medical Oncology 03/22/22 08/14/24 Azra South, OLIVIA [address] [place] [address] PHCM Welder Tech 05/09/22 04/08/24 Nico Patel MD [address] [place] [address] [address] [address] [email or web address] Primary Oncologist Hematology 07/13/22 Paco Jean MD, MPH [address] [place] [address] [email or web address] Insurance Assigned Provider 09/09/22 01/13/23 Ro Hardin, MECHANICAL EQUIPMENT SALES ENGINEER [address] [place] [address] [email or web address] PHCM Personal Lines Underwriter 12/01/22 12/11/22 Myranda Lloyd [address] [place], [place] [email or web address] PHC Community Management Development Specialist 01/16/23 01/17/23 Stuart Saunders MD [address] [place] [address] [email or web address] Primary Oncologist Medical Oncology 01/22/23 Glenna Granados, HYDRAULIC MECHANIC [address] [place] [address] [email or web address] Nurse Practitioner Medical Oncology 03/12/23 08/14/24 Ibis Wilson, OLIVIA [address] [place] [phone] [email or web address] Primary Infusion Nurse 08/14/23 Luisa Vega [address] [place] [phone] [email or web address] Music Therapist 07/25/24 Moni Argueta RN [address] [place] [address] [email or web address] Nurse Navigator 08/15/24 documented as of this encounter Additional Source Comments The information contained in this document represents components of the legal health record. It is not the complete legal health record.[facility]
--- OUTSIDE RECORDS SUMMARY | 2025-02-18 17:16 | XMS_ITS | Encounter Summary ---
Author Organization [facility] Address [address] [place] [address] Phone Care Team Providers Care Package Checker Name Role Phone Soco Alexis OPHTHALMOLOGIST RETINA SPECIALIST Unavailable [phone] Guru Glynn MD Unavailable [phone] Soco Alexis OPHTHALMOLOGIST RETINA SPECIALIST Primary Care Provider Keily Maldonado LEAD LOADER Unavailable Cassi Carpenter PA-C Unavailable pnugen Azra South RN Unavailable Nico Patel MD Unavailable Paco Jean MD, MPH Unavailable + [phone] Ro HardinW Unavailable [email or web address] Myranda Lloyd Unavailable [email or web address] Stuart Saudners MD Unavailable [phone] Glenna Granados ENROLLMENT NURSE Unavailable [phone] Rachana Otto MD Primary Care Provider [phone] Rachana Otto MD Primary Care Provider Ibis Wilson RN Unavailable Luisa Vega Unavailable [phone] Moni Argueta RN Unavailable [phone] Pcp, Unknown Primary Care Provider UnavailSoco Hodge OPHTHALMOLOGIST RETINA SPECIALIST Primary Care Provider [phone] Encounter Details Date Type Department Care Team (Late Contact Info) Description 09/04/2022 Procedure Pass [facility] Emergency Imaging, [facility] [address] [facility], Floor 1 [place] [address] Social History Tobacco Use Types Packs/Day Years [...] (Late Contact Info) Description 02/17/2025 Procedure Pass , [facility] 30 [place] [address] 03/16/2025 8:00 AM EST Telemedicine [facility] FOR [facility] 32 [facility], 9th Floor, [address] [place] [address] Krysta Villagomez, ENROLLMENT NURSE 32 [facility] [place] 9 [place] [address] 10/19/2025 12:30 PM EDT Appointment , [facility] 30 [place] [address] Soco Alexis, OPHTHALMOLOGIST RETINA SPECIALIST [address] [place] [address] documented as of this encounter Visit Diagnoses [...] documented as of this encounter Care Teams Package Checker Relationship Specialty Start Date End Date Soco Alexis OPHTHALMOLOGIST RETINA SPECIALIST PCP - General Family Medicine 01/26/22 03/13/23 Rachana Otto MD [address] [place] [address] PCP - General Family Medicine 03/14/23 05/30/23 Rachana Otto MD [address] [place] [address] [place] [address] [email or web address] PCP - General Family Medicine 05/31/23 10/20/24 Pcp, Unknown PCP - General 11/11/24 12/01/24 Soco Alexis, JADE [address] [place] [address] PCP - General Nurse Practitioner 12/02/24 Soco Alexis OPHTHALMOLOGIST RETINA SPECIALIST 03/02/17 12/01/24 Guru Glynn MD [address] [place] [address] [address] [place] [address] [email or web address] Primary Oncologist Medical Oncology 01/24/22 05/09/23 Keily Maldonado CNP 30 [place] [address] Nurse Practitioner Medical Oncology 02/16/22 Cassi Carpenter PA-C 30 [place] [address] Physician Client Support Administrator Medical Oncology 03/22/22 08/14/24 Azra South, OLIVIA 10 [place] [address] PHCM Program Lead 05/09/22 04/08/24 Nico Patel MD [address] [place] [address] [place], [place] [address] [email or web address] Primary Oncologist Hematology 07/13/22 Paco Jean MD, MPH 70 [place] [address] [email or web address] Insurance Assigned Provider 09/09/22 01/13/23 Ro Hardin, CONTROL ROOM TENDER 10 [place] [address] [email or web address] PHCM Reliability Technicians 12/01/22 12/11/22 Myranda Lloyd 10 [place], [place] [email or web address] PHC Community Datapower Developer 01/16/23 01/17/23 Stuart Saunders MD 30 [place] [address] [email or web address] Primary Oncologist Medical Oncology 01/22/23 Glenna Granados, ENROLLMENT NURSE 30 [place] [address] [email or web address] Nurse Practitioner Medical Oncology 03/12/23 08/14/24 Ibis Wilson, OLIVIA [address] [place] [phone] [email or web address] Primary Infusion Nurse 08/14/23 Luisa Vega [address] [place] [phone] [email or web address] Music Therapist 07/25/24 Moni Argueta RN 30 [place] [address] [email or web address] Nurse Navigator 08/15/24 documented as of this encounter Additional Source Comments The information contained in this document represents components of the legal health record. It is not the complete legal health record.[facility]
--- OUTSIDE RECORDS SUMMARY | 2025-02-18 17:16 | XMS_ITS | Encounter Summary ---
Author Organization [facility] Address [address] [place] [address] Phone Care Team Providers Care Claims Customer Service Representative Name Role Phone Soco Alexis SEAM CLOSER Unavailable [phone] Guru Glynn MD Unavailable Soco Alexis SEAM CLOSER Primary Care Provider Keily Maldonado OPERATIONS COORDINATOR Unavailable Cassi Carpenter PA-C Unavailable pnugen Azra South RN Unavailable Nico Patel MD Unavailable Paco Jean MD, MPH Unavailable + [phone] Ro HardinW Unavailable [email or web address] Myranda Lloyd Unavailable rafael [email or web address] Stuart Saunders MD Unavailable [phone] Glenna Granados BDR Unavailable [phone] Rachana Otto MD Primary Care Provider [phone] Rachana Otto MD Primary Care Provider Ibis Wilson RN Unavailable Luisa Vega Unavailable Moni Argueta RN Unavailable Pcp, Unknown Primary Care Provider Unavailtoo anmol Soco Alexis SEAM CLOSER Primary Care Provider [phone] Encounter Details Date Type Department Care Team (Late st Contact Info) Description 09/19/2022 Procedure Pass [facility] 30 [place] [address] Social History Tobacco Use Types Packs/Day Years [...] Author No Risk Indicated 09/19/2022 8:00 PM EDT Johnna Zepeda RN * [place] Suicide Severity Rating Scale (Screener/Recent Self-Report) Question Answer Date of Assessment Author 1. Wish to be (Past 1 Month) No 09/19/2022 8:00 PM JOLENET Johnna Zepeda RN 2. Non-Specific Active Suici jared Thoughts (Past 1 Month) No 09/19/2022 8:00 PM EDT Chiara Zepeda, OLIVIA 6. Suicidal Behavior (Lifetime) No 8:00 PM EDT Johnna Zepeda, OLIVIA documented as of this encounter Plan of Treatment Upcoming Encounters Date Type Department Care Team (Late st Contact Info) Description 02/17/2025 Procedure Pass [address] [address] 03/16/2025 8:00 AM EST Telemedicine [facility] 32 [facility], 9th Floor, [address] [place] [address] Krysta Villagomez FNP 32 [facility] [address] 9 [place] [address] [email or web address] 10/19/2025 12:30 PM EDT Appointment [address] [address] Soco Alexis SEAM CLOSER 230 [place] [address] documented as of this encounter Visit Diagnoses [...] documented as of this encounter Care Teams Claims Customer Service Representative Relationship Specialty Start Date End Date Soco Alexis SEAM CLOSER PCP - General Family Medicine 01/26/22 03/13/23 Rachana Otto MD 30 [place] [address] [email or web address] PCP - General Family Medicine 03/14/23 05/30/23 Rachana Otto MD [address] [place] [phone] [email or web address] PCP - General Family Medicine 05/31/23 10/20/24 Pcp, Unknown PCP - General 11/11/24 12/01/24 Soco Alexis SEAM CLOSER [address] [place] [address] PCP - General Nurse Practitioner 12/02/24 Soco Alexis SEAM CLOSER 03/02/17 12/01/24 Guru Glynn MD [address] [place], [place] [address] [address] [place] [address] [email or web address] Primary Oncologist Medical Oncology 01/24/22 05/09/23 Keily Maldonado CNP 30 [place] [address] [email or web address] Nurse Practitioner Medical Oncology 02/16/22 Cassi Carpenter PA-C [address] [place] [address] [email or web address] Physician Revenue Director Medical Oncology 03/22/22 08/14/24 Azra South RN 10 [place] [address] [email or web address] PHCM Pressure Welder 05/09/22 04/08/24 Nico Patel MD [address] [place] [address] [email or web address] Primary Oncologist Hematology 07/13/22 Paco Jean MD, MPH [address] [place] [address] [email or web address] Insurance Assigned Provider 09/09/22 01/13/23 Ro Hardin SHUTTLE FILLER [address] [place] [address] [email or web address] Event Host 12/01/22 12/11/22 Myranda Lloyd [address] [place] [address] [email or web address] Community Lap Cutter 01/16/23 01/17/23 Stuart Saunders MD [address] [place] [address] [email or web address] Primary Oncologist Medical Oncology 01/22/23 Glenna Granados FNP 30 [place] [address] [email or web address] Nurse Practitioner Medical Oncology 03/12/23 08/14/24 Ibis Wilson RN 100 [place] [phone] Primary Infusion Nurse 08/14/23 Luisa Vega 100 [place] [phone] Music Therapist 07/25/24 Moni Argueta RN [address] [place] [address] [email or web address] Nurse Navigator 08/15/24 documented as of this encounter Additional Source Comments The information contained in this document represents components of the legal health record. It is not the complete legal health record.[facility]
--- OUTSIDE RECORDS SUMMARY | 2025-02-18 17:16 | XMS_ITS | Encounter Summary ---
Author Organization [facility] Address [address] [place] [address] Phone Care Team Providers Care Supervisor Porcelain Department Name Role Phone Soco Alexis V BLOCK SAW OPERATOR Unavailable [phone] Guru Glynn MD Unavailable Soco Alexis V BLOCK SAW OPERATOR Primary Care Provider Keily Maldonado HIM ANALYST Unavailable Cassi Carpenter PA-C Unavailable pnugen Azra South RN Unavailable Nico Patel MD Unavailable Paco Jean MD, MPH Unavailable [phone] Ro HardinW Unavailable [email or web address] Myranda Lloyd Unavailable [email or web address] Stuart Saunders MD Unavailable [phone] Glenna Granados AUTO RESEARCH ENGINEER Unavailable [phone] Rachana Otto MD Primary Care Provider [phone] Rachana Otto MD Primary Care Provider Ibis Wilson RN Unavailable Luisa Vega Unavailable [phone] Moni Argueta RN Unavailable [phone] Pcp, Unknown Primary Care Provider UnavailSoco Hodge V BLOCK SAW OPERATOR Primary Care Provider [phone] Encounter Details Date Type Department Care Team (Late Contact Info) Description 09/04/2022 Procedure Pass [facility] Emergency Imaging, [facility] 55 [facility], Floor 1 [place] [address] Social History Tobacco Use Types Packs/Day Years [...] (Late Contact Info) Description 02/17/2025 Procedure Pass [facility] 30 [place] [address] 03/16/2025 8:00 AM EST Telemedicine [facility] FOR [facility]ARROW TRANSPLANT 32 [facility], 9th Floor, [address] [place] [address] Krysta Villagomez, AUTO RESEARCH ENGINEER 32 [facility] [address] 9 [place] [address] 10/19/2025 12:30 PM EDT Appointment [facility], [facility] 30 [place] [address] Soco Alexis, V BLOCK SAW OPERATOR 230 [place] [address] documented as of this encounter Visit Diagnoses [...] documented as of this encounter Care Teams Supervisor Porcelain Department Relationship Specialty Start Date End Date Soco Alexis V BLOCK SAW OPERATOR PCP - General Family Medicine 01/26/22 03/13/23 Rachana Otto MD [address] [place] [address] PCP - General Family Medicine 03/14/23 05/30/23 Rachana Otto MD [address] [place] [address] [place] [address] [email or web address] PCP - General Family Medicine 05/31/23 10/20/24 Pcp, Unknown PCP - General 11/11/24 12/01/24 Soco Alexis, JADE [address] [place] [address] PCP - General Nurse Practitioner 12/02/24 Soco Alexis V BLOCK SAW OPERATOR 03/02/17 12/01/24 Guru Glynn MD [address] [place] [address] [address] [place] [address] [email or web address] Primary Oncologist Medical Oncology 01/24/22 05/09/23 Keily Maldonado CNP 30 [place] [address] Nurse Practitioner Medical Oncology 02/16/22 Cassi Carpenter PA-C 30 [place] [address] Physician Flour Inspector Medical Oncology 03/22/22 08/14/24 Azra South, OLIVIA 10 [place] [address] PHCM Mechanical Project Engineer 05/09/22 04/08/24 Nico Patel MD [address] [place] [address] [place], [place] [address] [email or web address] Primary Oncologist Hematology 07/13/22 Paco Jean MD, MPH 70 [place] [address] [email or web address] Insurance Assigned Provider 09/09/22 01/13/23 Ro Hardin, SHAREPOINT APPLICATION ARCHITECT 10 [place] [address] [email or web address] PHCM Information Security Associate 12/01/22 12/11/22 Myranda Lloyd 10 [place], [place] [email or web address] PHC Community Physician Aide 01/16/23 01/17/23 Stuart Saunders MD 30 [place] [address] [email or web address] Primary Oncologist Medical Oncology 01/22/23 Glenna Granados, AUTO RESEARCH ENGINEER 30 [place] [address] [email or web address] Nurse Practitioner Medical Oncology 03/12/23 08/14/24 Ibis Wilson, OLIVIA [address] [place] [phone] [email or web address] Primary Infusion Nurse 08/14/23 Luisa Vega [address] [place] [phone] [email or web address] Music Therapist 07/25/24 Moni Argueta RN 30 [place] [address] [email or web address] Nurse Navigator 08/15/24 documented as of this encounter Additional Source Comments The information contained in this document represents components of the legal health record. It is not the complete legal health record.[facility]
--- OUTSIDE RECORDS SUMMARY | 2025-02-18 17:16 | XMS_ITS | Encounter Summary ---
Author Organization [facility] Address [address] [place] [address] Phone Care Team Providers Care Embalmer Assistant Name Role Phone Soco Alexis COMMERCIAL FRONT LOAD OPERATOR Unavailable [phone] Paco Jean MD, MPH Unavailable [phone] Guru Glynn MD Unavailable Soco Alexis COMMERCIAL FRONT LOAD OPERATOR Primary Care Provider Keily Maldonado TEST DEPARTMENT HELPER Unavailable Cassi CarpenterC Unavailable dylan Azra South RN Unavailable Nico Patel MD Unavailable Paco Jean MD, MPH Unavailable [phone] Ro HardinW Unavailable [email or web address] Myranda Lloyd Unavailable rafael [email or web address] Stuart Saunders MD Unavailable [phone] Glenna Granados FRONT MAKER Unavailable [phone] Rachana Otto MD Primary Care Provider Rachana Otto MD Primary Care Provider [phone] Ibis Wilson RN Unavailable Luisa Vega Unavailable [phone] Moni Argueta RN Unavailable [phone] Pcp, Unknown Primary Care Provider UnavailSoco Hodge NP Primary Care Provider [phone] Encounter Details Date Type Department Care Team (Late Contact Info) Description 02/02/2022 Procedure Pass [facility] 30 [place] [address] Social History Tobacco Use Types Packs/Day Years Used Date Smoking Tobacco: Heavy Smoker Cigarettes 0.5 33.8 Started: 1991 Smokeless Tobacco: Never Comments:8-10 cigs /day Alcohol Use Standard Drinks/Week Comments Yes 3 (1 standard drink = 0.6 oz pur e alcohol) Comments Unknown Sex and Gender Information Value Date Recorded Sex Assigned at Female 06/25/2019 7:03 PM EST Legal Sex Female 9:21 PM EDT Gender Identity Female 06/25/2019 7:03 PM EST Sexual Orientation Lesbian or [place] 09/18/2022 1: 58 PM EDT 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 [address] 9 [place] [address] 10/19/2025 12:30 PM EDT Appointment [facility] [address] [place] [address] Soco Alexis, COMMERCIAL FRONT LOAD OPERATOR 230 [place] [address] documented as of this encounter Visit Diagnoses [...] 12:50 PM EST Parainfluenza 06/06/2023 06/06/2023 06/20/2023 1: 21 AM EST CoV-Exposed Comment:Removed via automated background [...] documented as of this encounter Care Teams Embalmer Assistant Relationship Specialty Start Date End Date Soco Alexis NP PCP - General Family Medicine 01/26/22 03/13/23 Rachana Otto MD 30 [place] [address] [email or web address] PCP - General Family Medicine 03/14/23 05/30/23 Rachana Otto MD [address] [place] [phone] [email or web address] PCP - General Family Medicine 05/31/23 10/20/24 Pcp, Unknown PCP - General 11/11/24 12/01/24 Soco Alexis COMMERCIAL FRONT LOAD OPERATOR 230 [place] [address] PCP - General Nurse Practitioner 12/02/24 Soco Alexis COMMERCIAL FRONT LOAD OPERATOR 03/02/17 12/01/24 Paco Jean MD, MPH 70 [place] [address] [email or web address] Insurance Assigned Provider 03/12/22 07/15/22 Guru Glynn MD [address] [place], [place] [address] [address] [place] [address] [email or web address] Primary Oncologist Medical Oncology 01/24/22 05/09/23 Keily Maldonado CNP 30 [place] [address] [email or web address] Nurse Practitioner Medical Oncology 02/16/22 Cassi Carpenter PA-C 30 [place] [address] [email or web address] Physician Street Light Cleaner Medical Oncology 03/22/22 08/14/24 Azra South, OLIVIA [address] [place] [address] [email or web address] PHCM Exchange Clerk 05/09/22 04/08/24 Nico Patel MD [address] [place] [address] [email or web address] Primary Oncologist Hematology 07/13/22 Paco Jean MD, MPH [address] [place] [address] [email or web address] Insurance Assigned Provider 09/09/22 01/13/[address] J[address]ILE [address] JUDGE [address] [place] [address] [email or web address] PHCM Bush Regenerator 12/01/22 12/11/22 Myranda Lloyd [address] [place] [address] [email or web address] PHCM Community Director Informatics 01/16/23 01/17/23 Stuart Saunders MD 30 [place] [address] [email or web address] Primary Oncologist Medical Oncology 01/22/23 Glenna Granados, FRONT MAKER 30 [place] [address] Nurse Practitioner Medical Oncology 03/12/23 08/14/24 Ibis Wilson RN 100 [place] [phone] Primary Infusion Nurse 08/14/23 Luisa Vega 100 [place] [address] Music Therapist 07/25/24 Moni Argueta RN 30 [place] [address] [email or web address] Nurse Navigator 08/15/24 documented as of this encounter Additional Source Comments The information contained in this document represents components of the legal health record. It is not the complete legal health record.[facility]
--- OUTSIDE RECORDS SUMMARY | 2025-02-18 17:16 | XMS_ITS | Encounter Summary ---
Author Organization [facility] Address [address] [place] [address] Phone Care Team Providers Care Machine Operator Picker Name Role Phone Soco Alexis MOBILE ELECTRONICS INSTALLER Unavailable [phone] TRANSCRIBER Unavailable Nico Patel MD Unavailable Stuart Saunders MD Unavailable [phone] Rachana Otto MD Primary Care Provider Ibis Wilson RN Unavailable Luisa Vega Unavailable [phone] Moni Argueta RN Unavailable [phone] Pcp, Unknown Primary Care Provider Unavailabl e Soco Alexis MOBILE ELECTRONICS INSTALLER Primary Care Provider [phone] Encounter Details Date Type Department Care Team (Late st Contact Info) Description 10/13/2024 Transcribe Orders [facility] Specimen Processing [address] [place] [address] Rachana Otto MD [address] [place], [place] [id number] Social History Tobacco Use Types Packs/Day Years [...] as food, clothing, or medical care? No 10/13/2024 In the past 12 months have y ou been in a relationship with a person who hurts, threatens, or tries to control you? No 10/13/2024 Are you denied basic needs s uch as food, clothing, or medical care? No 10/13/2024 In the past 12 months have y ou been in a relationship with a person who hurts, threatens, or tries to control you? 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 Wish to be (Past 1 Month) No 025 11:00 PM EDT Babita Moss RN 2. Non-Specific Active Suici jared Thoughts (Past 1 Month) No 10/13/2024 11:00 PM EDT Che Moss RN 6. Suicidal Behavior (Lifetime) No 5 11:00 PM EDT Babita Moss RN documented as of this encounter Plan of Treatment Upcoming Encounters Date Type Department Care Team (Late st Contact Info) Description 02/17/2025 Procedure Pass [facility], [facility] [address] [place] [address] 03/16/2025 8:00 AM EST Telemedicine [facility] FOR [facility] [address] [facility], 9th Floor, [address] [place] [address] Krysta Villagomez FNP [address] [facility] [address] [place] [address] [email or web address] 10/19/2025 12:30 PM EDT Appointment [facility], [facility] [address] [place] [address] Soco Alexis MOBILE ELECTRONICS INSTALLER [address] [place] [address] documented as of this encounter Visit Diagnoses Not on filedocumented in this encounter Additional Health Concerns Infection Onset Date Last Indicated Resolved Time CoV-Risk Comment:Per note documentation 10/09/2024 10/14/2024 11:00 AM EDT Parainfluenza Comment:Adults with parainfluenza: Maintain standard precautions. See Isolation Precautions and Duration of Isolation policy in [employer] for details 10/14/2024 10/14/2024 10/21/2024 1:21 AM E DT Assessment Noted Time PHQ-2 Depression Total Score: 2 05/17/19 23 10:19 AM EST documented as of this encounter Care Teams Machine Operator Picker Relationship Specialty Start Date End Date Rachana Otto MD [address] [place] [address] [place] [address] [email or web address] PCP - General Family Medicine 05/31/23 10/20/24 Pcp, Unknown PCP - General 11/11/24 12/01/24 Soco Alexis MOBILE ELECTRONICS INSTALLER [address] [place] [address] PCP - General Nurse Practitioner 12/02/24 Soco Alexis MOBILE ELECTRONICS INSTALLER 03/02/17 12/01/24 Keily Maldonado CNP [address] [place] [address] Nurse Practitioner Medical Oncology 02/16/22 Nico Patel MD [address] [place] [address] [address] [place] [address] [email or web address] Primary Oncologist Hematology 07/13/22 Stuart Saunders MD [address] [place] [address] [email or web address] Primary Oncologist Medical Oncology 01/22/23 Ibis Wilson, OLIVIA [address] [place] [phone] [email or web address] Primary Infusion Nurse 08/14/23 Luisa Vega [address] [place] [phone] [email or web address] Music Therapist 07/25/24 Moni Argueta RN [address] [place] [address] [email or web address] Nurse Navigator 08/15/24 documented as of this encounter Additional Source Comments The information contained in this document represents components of the legal health record. It is not the complete legal health record.[facility]
--- OUTSIDE RECORDS SUMMARY | 2025-02-18 17:16 | XMS_ITS | Encounter Summary ---
Author Organization [facility] Address [address] [place] [address] Phone Care Team Providers Care Unit Supervisor Name Role Phone Soco Alexis ACID SPLICER Unavailable [phone] Guru Glynn MD Unavailable [phone] Soco Alexis ACID SPLICER Primary Care Provider Keily Maldonado GUIDE ALPINE Unavailable Cassi Carpenter PA-C Unavailable [email or web address] Azra South RN Unavailable Nico Patel MD Unavailable Paco Jean MD, MPH Unavailable [phone] Ro HardinW Unavailable [email or web address] Myranda Lloyd Unavailable [email or web address] Stuart Saunders MD Unavailable [phone] Glenna Granados CARBON BRUSHER ASSEMBLER Unavailable [phone] Rachana Otto MD Primary Care Provider [phone] Rachana Otto MD Primary Care Provider Ibis Wilson RN Unavailable Luisa Vega Unavailable [phone] Moni Argueta RN Unavailable [phone] Pcp, Unknown Primary Care Provider UnavailSoco Hodge ACID SPLICER Primary Care Provider [phone] Encounter Details Date Type Department Care Team (Late st Contact Info) Description 09/19/2022 Procedure Pass [facility], Ct Scan - [address] [address] Social History Tobacco Use Types Packs/Day Years [...] 09/19/2022 8:00 PM Johnna Kerns, OLIVIA * [place] Suicide Severity Rating Scale (Screener/Recent Self-Report) Question [...] st Contact Info) Description 02/17/2025 Procedure Pass [address] [address] 03/16/2025 8:00 AM EST Telemedicine [facility] [address] [facility], 9th Floor, [address] [place] [address] Krysta Villagomez FNP [address] [facility] [address] [place] [address] [email or web address] 10/19/2025 12:30 PM EDT Appointment [address] [address] Soco Alexis, ACID SPLICER [address] [place] [address] documented as of this encounter Visit Diagnoses [...] documented as of this encounter Care Teams Unit Supervisor Relationship Specialty Start Date End Date Soco Alexis NP PCP - General Family Medicine 01/26/22 03/13/23 Rachana Otto MD [address] [place] [address] [email or web address] PCP - General Family Medicine 03/14/23 05/30/23 Rachana Otto MD [address] [place] [address] [place] [phone] [email or web address] PCP - General Family Medicine 05/31/23 10/20/24 Pcp, Unknown PCP - General 11/11/24 12/01/24 Soco Alexis NP [address] [place] [address] PCP - General Nurse Practitioner 12/02/24 Soco Alexis NP 03/02/17 12/01/24 Guru Glynn MD [address] [place] [address] [address] [place] [address] [email or web address] Primary Oncologist Medical Oncology 01/24/22 05/09/23 Keily Maldonado CNP [address] [place] [address] [email or web address] Nurse Practitioner Medical Oncology 02/16/22 Cassi Carpenter PA-C [address] [place] [address] [email or web address] Physician Charge Machine Operator Medical Oncology 03/22/22 08/14/24 Azra South, OLIVIA [address] [place] [address] [email or web address] PHCM Fashion Consultant 05/09/22 04/08/24 Nico Patel MD [address] [place] [address] [email or web address] Primary Oncologist Hematology 07/13/22 Paco Jean MD, MPH [address] [place] [address] [email or web address] Insurance Assigned Provider 09/09/22 01/13/23 oR Hardin IT PROGRAM ENGAGEMENT DIRECTOR [address] [place] [address] [email or web address] Medical Records Manager 12/01/22 12/11/22 Myranda Lloyd [address] [place] [address] [email or web address] PHC Community Spray Cementer 01/16/23 01/17/23 Stuart Saunders MD [address] [place] [address] [email or web address] Primary Oncologist Medical Oncology 01/22/23 Glenna Granados, CARB[employer] BRUSHER ASSEMBLER [address] [place] [address] [email or web address] Nurse Practitioner Medical Oncology 03/12/23 08/14/24 Ibis Wilson RN [address] [place] [phone] Primary Infusion Nurse 08/14/23 Luisa Vega [address] [place] [address] Music Therapist 07/25/24 Moni Argueta RN [address] [place] [address] [email or web address] Nurse Navigator 08/15/24 documented as of this encounter Additional Source Comments The information contained in this document represents components of the legal health record. It is not the complete legal health record.[facility]
--- OUTSIDE RECORDS SUMMARY | 2025-02-18 17:17 | XMS_ITS | Clinical Summary ---
Author Organization [employer] Address [address] [place] [address] [address] [place] [address] Care Team Providers Care Mri Assistant Name Role Phone JaneneSoco chavez JADE Primary Care Provider [phone] Allergies Active Allergy Reactions Criticality Noted Date Comments Amoxicillin-Pot Clavulanate Rash Medium 04/16/20 20 Azithromycin Anaphylaxis High 09/22/2016 Bee Venom Anaphylaxis High 08/05/2023 Cephalexin Rash Medium 04/16/2020 Clindamycin Anaphylaxis High 05/15/2017 Hornet Venom Anaphylaxis High 09/22/2016 Moxifloxacin Anaphylaxis High 05/15/2017 Medications albuterol (2.5 MG/3ML) 0.083% nebulizer solution Take 2.5 mg by nebulization every 6 (six) hours if needed for wheezing or shortness of breath. 07/16/19 25 Active amphetamine-de xtroamphetamin e (Adderall) 10 MG tablet Take 1 tablet by mouth 2 times daily. 08/15/19 25 Active amphetamine-de xtroamphetamin e (Adderall) 30 MG tablet Take 1 tablet by mouth 3 times daily. 08/16/19 25 Active Rezurock 200 MG tablet Take 1 tablet by mouth 2 times daily. 06/13/19 25 Active clonazePAM (KlonoPIN) 0.5 MG tablet Take 1 tablet by mouth Once per day. 08/16/19 25 Active cyclobenzaprin e (Flexeril) 5 MG tablet Take 1 tablet by mouth if needed in the morning, at noon, and at bedtime for muscle spasms. 12/28/19 24 Active doxazosin (Cardura) 2 MG tablet Take 1 tablet by mouth at bedtime. 07/12/19 25 Active ipratropium-al buterol (Duo-Neb) 0.5-2.5 mg/3 mL nebulizer solution Take 3 mL by nebulization in the morning, at noon, in the evening, and at bedtime. 07/15/19 25 Active labetalol (Normodyne) 100 MG tablet Take 1 tablet by mouth 2 times daily. 07/22/19 25 Active Caplyta 42 MG capsule Take 1 capsule by mouth Once per day. 08/19/19 25 Active magnesium oxide (Mag-Ox) 400 (240 Mg) MG tablet Take 1 tablet by mouth 2 times daily. 05/09/19 25 Active omeprazole (PriLOSEC) [address] capsule Take 1 capsule by mouth before breakfast and before evening meal. 06/11/19 25 Active Jakafi 5 MG chemo tablet Take 1 tablet by mouth 2 times daily. 06/13/19 25 Active Ozempic, 2 MG/DOSE, 8 MG/3ML solution pen-injector Inject 2 mg under the skin every 7 (seven) days. 08/09/19 25 Active tacrolimus (Prograf) 0.5 MG capsule TAKE 5 CAPSULES BY MOUTH EVERY MORNING AND 4 CAPSULES EVERY EVENING 05/26/19 25 Active valACYclovir (Valtrex) 1 g tablet Take 1 tablet by mouth Once per day. 05/09/19 25 Active furosemide (Lasix) 20 MG tablet Take 1 tablet (20 mg) by mouth if needed in the morning and at bedtime (as needed for edema). 180 tablet 3 02/03/20 25 Active desogestrel-et hinyl estradiol (Apri) 0.15-30 MG-MCG tablet Take 1 tablet by mouth Once per day. 28 tablet 2 02/18/20 25 026 Active budesonide EC (Entocort EC) 3 MG 24 hr capsule Take 2 capsules by mouth Once per day. 08/06/19 25 025 Discontinu ed(Therapy completed) mupirocin (Bactroban) 2 % ointment Apply topically 3 times daily for 10 days. 22 g 02/03/20 25 025 HYDROmorphone (Dilaudid) 4 MG tabletIndicati ons:Total body pain Take 1 tablet (4 mg) by mouth if needed in the morning and at bedtime for severe pain (as needed) for up to 5 days. 10 tablet 02/03/20 25 025 Active Problems Problem Noted Date Diagnosed Date Cervical cancer screening 02/17/2025 Assessment & Plan (02/17/2025 1:46 PM EDT): Orders: HPV High Risk with Reflex to Subtypes Pap Smear Memory impairment 02/17/2025 Assessment & Plan (02/17/2025 1:46 PM EDT): Orders: Referral to Neurology; Future Referral to Neuropsychology; Future Generalized edema 02/02/2025 Assessment & Plan (02/02/2025 5:10 PM EDT): Encounter for immunization 02/02/2025 Assessment & Plan (02/02/2025 5:10 PM EDT): Orders: FLU VACCINE TRIVALENT [id number] (Fluarix) 6 mo + Impetigo 02/02/2025 Assessment & Plan (02/02/2025 5:10 PM EDT): Acute pain of right shoulder 12/01/2024 Assessment & Plan (12/01/2024 4:29 PM EDT): Chronic issue, fell recently on outsretched arm, since then pain, due to recent fall and injury recommended injury clinic (occurred 4 days ago) if unable to be seen there will stat refer to ortho Chest pain varying with breathing 12/01/2024 Assessment & Plan (12/01/2024 4:30 PM EDT): Possible rib fracture, prn oxycodone sent no hx of issue with pain medication X-ray ordered Pt will be seen at injury clinic Intertrigo 12/01/2024 Breast screening 12/01/2024 Assessment & Plan (02/17/2025 1:46 PM EDT): Assessment & Plan (12/01/2024 4:28 PM EDT): Pt requesting mammogram, ordered Menopausal syndrome (hot flashes) 12/01/2024 Assessment & Plan (02/17/2025 1:46 PM EDT): Assessment & Plan (12/01/2024 4:28 PM EDT): Will consult with oncology but can consider ocps Cytopenia 10/27/2024 Overview (10/27/2024): Last chimerism in our system on 01/03/24 shows still with 100% donor stem cells and no ABO mismatch aplasia risk. Type 2 diabetes mellitus wit h hyperglycemia, without long-term current use of insulin 10/27/2024 Overview (10/27/2024): She is now diabetic with an elevated hemoglobin A1c. She started Ozempic, response has plateaued, will increase the dose and consider switching agents if no effect or of side effects are too great. 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 Last dose of Reclast 5 mg and was given 01/31/24. Vitamin D 34. 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 Saw Ortho on 04/16/24 suspecting majority of pain is coming from her lumbar spine/SI joint. Insomnia 10/03/2024 Depression 10/03/2024 Adrenal insufficiency 07/22/2024 Overview (08/14/2024): s/p 4 week taper of steroids for pancreatitis / colitis with prior lymphoma treatment. Required stress dosed steroids for hypotension x1 on 07/24. 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 She continued Jakafi, Rezurock and Budesonide during admission. Acute respiratory failure with hypoxia (CMS/HCC) 06/05/2024 Altered mental status 06/05/2024 Hypoxia 06/05/2024 Influenza B 06/04/2024 Sacral insufficiency fracture with delayed heali ng 01/18/2024 Anal or rectal pain 08/07/2023 Episodic headache 08/04/2023 Steroid dependent for adrenal supression 024 Severe sepsis 06/06/2023 Pneumonia 06/05/2023 Dysuria 03/26/2023 Herpes simplex 03/26/2023 Menopausal vasomotor syndrome 02/08/2023 Bilateral lower extremity pain 09/23/2022 Bone marrow transplant status 09/19/2022 Diarrhea 09/19/2022 Anxiety 08/25/2022 Chronic health problem 08/25/2022 Overview (10/07/2024): 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 Issues reported addressed below, at this time support patient goals but continue with specialized care Infectious disease 08/25/2022 Sarcoidosis of lymph nodes 08/25/2022 Transaminitis 07/06/2022 T-cell lymphoma ([facility]/HCC) 05/26/2022 Overview (10/27/2024): She has a history of recurrent peripheral T-cell lymphoma status post stem cell transplant (Haplo)day zero 07/25/2023, complicated by GVHD, adrenal insufficiency, febrile neutropenia primary oncologist is Dr. Nico Patel at [facility]. Primary Outpatient Provider: Nico Patel MD (BMT) Transplant Type: TIGRE Flu/Jeannine PBSCT, Day 0= 07/25/2023 Disease Status: Chimerism (12/2023) 100% donor in all cell lines. PET at 1 year (07/2024) w/ CR Assessment & Plan (02/17/2025 1:46 PM EDT): ADHD (attention deficit hyperactivity disorder) 05/23/2022 Depression with anxiety 05/23/2022 Febrile neutropenia ([facility]) 05/23/2022 Peripheral T cell lymphoma o f lymph nodes of multiple sites ([facility]) 01/30/2022 Assessment & Plan (02/17/2025 1:46 PM EDT): HTN (hypertension) 07/02/2020 Mild intermittent asthma without complication Pulmonary nodules 05/28/2020 HUNG (dyspnea on exertion) 05/03/2020 Gastroesophageal reflux disease without esophagi tis 02/06/2019 History of uveitis 02/06/2019 Vitamin D insufficiency 02/06/2019 Cancer ([facility]) Transplant Overview (10/06/2024): autogenic stem cell , 2022, failed, then allogent 07/25/23 Resolved Problems Problem Noted Date Diagnosed Date Resolved Date Septic shock ([facility]) 08/14/202410/06 Elevated blood pressure read ing without diagnosis of hypertension 08/05/2023 10/06/2024 Fever in adult 09/18/2022 10/06/2024 Mucositis 09/08/2022 10/06/2024 Tobacco dependence 02/06/2019 Unexplained weight gain 02/06/2019 06/0 06/2024 Encounters Date Type Department Care Team Description 02/17/2025 1:00 PM EDT Procedure Visit [address] [address] Soco Alexis NP Cervical cancer screening (Primary Dx); Memory impairment; Menopausal syndrome (hot flashes); 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); T-cell lymphoma (CMS/HCC) (HCC); Breast screening 02/17/2025 Travel 02/16/[address] [address] Soco Alexis NP Chart Prep 02/02/2025 10:30 AM EDT Office Visit [address] [address] Soco Alexis NP Generalized edema (Primary Dx); Encounter for immunization; Impetigo; Total body pain 02/02/2025 Travel 01/30/[address] [address] Jose A Yanez MA chart prep 01/29/2025 Travel 01/28/[address] [address] Soco Alexis NP 12/12/2024 2:00 PM EDT Office Visit [address] [address] Anne Beltrán CNP Lymphedema (Primary Dx); Shortness of breath 12/12/2024 Travel 12/11/[address] [address] Sara Camacho MA CHARTPREP 12/10/[address] [address] Soco Alexis NP Nurse Triage 12/05/[address] [address] Soco Alexis NP 12/01/2024 3:45 PM EDT Office Visit [address] [address] Soco Alexis, JADE Type 2 diabetes mellitus with hyperglycemia, without long-term current use of insulin (CMS/HCC) (Primary Dx); Acute pain of right shoulder; Chest pain varying with breathing; Intertrigo; Breast screening; Menopausal syndrome (hot flashes); 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 (CMS/HCC); Acute respiratory failure with hypoxia (CMS/HCC) 12/01/2024 Travel 11/30/2024 Travel from Last 3 Months Immunizations Immunization Administration Dates Next Due DTaP / Hep B / IPV 08/28/2024,04/25/2024 Hib (PRP-T) 08/28/2024,04/25/2024 INFLUENZA VACCINE QUADRIVALE NT RECOMBINANT PRESERVATIVE FREE RIV4 03/02/2020 Influenza injectable quadriv alent IIV4 with preservative 02/17/2020 Influenza injectable quadriv alent preservative free 02/22/2023,03/10/2022,02/10/2021,02/21,04/01/2018,02/18/2016 Influenza, IIV3, injectable 03/24/2011 Influenza, Unspecified 02/04/2017 Influenza, seasonal, injecta ble, preservative free 02/02/2025 Meningococcal MCV4O 11/25/2024,08/28/2024 Moderna Covid-19 Vaccine 12+ 09/03/2020, 08/19/2020,08/06/2020,07/23 Pneumococcal Conjugate PCV 20 04/25/2024 Pneumococcal Conjugate PCV 21 08/28/2024 TD (adult), 2 Lf tetanus tox oid, preservative free, adsorbed 01/29/2024 Tdap 02/10/2021 Zoster, Recombinant 11/25/2024 Social History Tobacco Use Types Packs/Day Years [...] Q2 Not on file 09/26/2024 Comments Unknown Intention Date Recorded No desire to become (finding) 0 10/06/2024 Sex and Gender Information Value Date Recorded Sex Assigned at Female 06/27/2023 2:08 PM EST Legal Sex Female 2:07 PM EST Gender Identity Female 08/28/2024 3:49 PM EDT Sexual Orientation Don't know 08/28/2024 3: 50 PM EDT Last Filed Vital Signs Vital Sign Reading [...] Mass Index 40.25 02/17/2025 1:09 PM EDT Plan of Treatment Upcoming Encounters Date Type Department Care Team (Late st Contact Info) Description 03/02/2025 3:30 PM EDT Office Visit [facility] [address] [place] [address] Soco Alexis NP [address] [place] [address] Health Maintenance Due Date Last Done Comments HIV Screening 1980 Diabetes: Foot Exam 1990 Eye Exam 1990 Hepatitis C Screening 1998 Pap Smear 2001 HPV Vaccines (1 - Risk 3-dose SCDM series) 12/23/2007 Cervical Cancer Screening 2010 HPV/Cotest 2010 Mammogram 2020 Lipid Panel 07/03/2024 07/03/2023, 10/2023, 06/11/2023 Hepatitis B Vaccines (3 of 3 - 19+ 3-dose series) 10/24/2024 08/28/2024, 04/25/2024, 07/06/2022 COVID-19 Vaccine ( season) 2025 09/13/2021, 09/03/2020, 08/19/2020, Additional history exists Zoster Vaccines (2 of 2) 01/20/2025 11/25/2024 IPV Vaccines (3 of 3 - Adult catch-up series) 02/27/2025 08/28/2024, 04/25/2024 Depression Monitoring 04/07/2025 10/06/2024, 025 Diabetes: Hemoglobin A1C 06/03/2025 025, 01/17/2024, 06/06/2023 SDOH Screening 09/26/2025 09/26/2024 Alcohol/Substance Use Screening 10/06/2025 10/06/2024 Family Planning (PISQ) 10/06/2025 10/06/2024 Disability Screening 11/30/2025 11/30/2024 Diabetes: Urine Protein Screening 01/28/2026 01/28/2025 Tobacco Screening 02/17/2026 02/17/2025 DTaP/Tdap/Td Vaccines (5 - Td or Tdap) 08/28/2034 08/28/2024, 04/25/2024, 01/29/2024, Additional history exists RSV Patients and Patients Aged 60 years or older (1 - 1-dose 75+ series) 12/23/2055 HIB Vaccines Aged Out 08/28/2024, 04/25/2024 No lo nger eligible based on patient's age to complete this topic Pneumococcal Vaccine: Pediatrics (0 to 5 Years) and At-Risk Patients (6 to 49) Years Completed 08/28/2024, 04/25/2024 Meningococcal Vaccine Aged Out 11/25/2024, 025 No longer eligible based on patient's age to complete this topic Influenza Vaccine Completed 02/02/2025, , 03/10/2022, Additional history exists Hepatitis A Vaccines Aged Out No long er eligible based on patient's age to complete this topic Meningococcal B Vaccine Aged Out No l onger eligible based on patient's age to complete this topic RSV under 20 months Aged Out No longe r eligible based on patient's age to complete this topic Rotavirus Vaccines Aged Out No longer eligible based on patient's age to complete this topic Procedures Procedure Name Priority Date/Time Associated Diagnosis Comments AMB REFERRAL TO PHYSICAL MEDICINE REHAB/PHYSIATRY STAT 01/06/2025 Closed burst fracture of lumbar vertebra with delayed healing CBC WITH AUTO DIFFERENTIAL Routine 12/12/2024 2:53 PM EDT Lymphedema COMPREHENSIVE METABOLIC PANEL Routine 12/12/2024 2:53 PM EDT Lymphedema B TYPE NATRIURETIC PEPTIDE (BNP) Routine 12/12/2024 2:53 PM EDT Lymphedema Shortness of breath POCT GLYCATED HEMOGLOBIN, TOTAL Routine 12/01/2024 4:11 PM EDT Type 2 diabetes mellitus with hyperglycemia, without long-term current use of insulin ([facility]) POCT GLUCOSE Routine 12/01/2024 4:11 PM EDT Type 2 diabetes mellitus with hyperglycemia, without long-term current use of insulin (CMS/[facility]) from Last 3 Months Results * Referral to Physiatry (01/06/2025) us Soco Alexis CARD CUTTER HELPER OUTPATIENT REFERRAL ORDERABLES F inal Result * (ABNORMAL) CBC auto differential (12/12/2024 2:53 PM EDT) White Blood Count 4.7(L) 4.8 - 10.8 X10*3/uL [facility] Red Blood Count 3.48(L) 4.20 - 5.50 X10*6/uL [facility] Hemoglobin 10.9(L) 12.0 - 16.0 g/dl [facility] Hematocrit 33.5(L) 37.0 - 47.0 % [facility] Mean Corpuscular Volume 96.3 80.0 - 98.0 fL [facility] Mean Corpuscular Hemoglobin 31.3 27.0 - 33.0 pg [facility] Mean Corpuscular HGB Conc 32.5 31.0 - 35.0 g/dl [facility] Red Cell Distribution Width 14.1 11.0 - 16.0 % [facility] Platelet Count 166 160 - 400 X10*3/uL [facility] Mean Platelet Volume 9.8 9.4 - 12.3 fL [facility] Neutrophils Percent Auto 57.8 45 - 73 % [facility] Imm Gran Pct Auto 0.4 0.0 - 0.4 % [facility] Lymphocytes Percent Auto 24.5 20 - 40 % [facility] Monocytes Percent Auto 15.0(H) 2 - 11 % [facility] Eosinophils Percent Auto 2.1 0 - 4 % [facility] Basophils Percent Auto 0.2 0 - 2 % [facility] NRBC Pct Auto 0.0 0.0 - 0.2 /100WBC [facility] Neutrophils Absolute Auto 2.7 2.0 - 8.3 x10*3/uL [facility] Imm Gran Abs Auto 0.02 0.00 - 0.03 X10*3/uL [facility] Lymphocytes Absolute Auto 1.2 1.2 - 4.9 X10*3/uL [facility] Monocytes Absolute Auto 0.7 0.1 - 1.2 X10*3/uL [facility] Eosinophils Absolute Auto 0.1 0.0 - 0.4 X10*3/uL [facility] Basophils Absolute Auto 0.0 0.0 - 0.2 X10*3/uL [facility] NRBC Abs Auto 0.000 0.0 - 0.012 X10*3/uL [facility] Blood Venous blood specimen / Unknown 12/12/2024 2:53 PM EDT 12/12/2024 4:[address] [facility] LAB BLOOD ORDERABLES Molly l Result Performing Organization Address [facility]/ZIP Co de Phone Number [facility] [address] [place] [phone] * B Type Natriuretic Peptide (BNP) (12/12/2024 2:53 PM EDT) [facility] B Type Natriuretic Peptide 15 <100 pg/mL [facility] Blood Venous blood specimen / Unknown 12/12/2024 2:53 PM EDT 12/12/2024 4:[address] [facility] LAB BLOOD ORDERABLES Molly l Result Performing Organization Address [facility]/ZIP Co de Phone Number [facility] [address] [place] [phone] * (ABNORMAL) Comprehensive Metabolic Panel (12/12/2024 2:53 PM EDT) [facility] Sodium 141 135 - 145 mmol/L [facility] Potassium 3.6 3.3 - 5.1 mmol/L [facility] Chloride 105 96 - 108 mmol/L [facility] Carbon Dioxide 28 22 - 29 mmol/L [facility] Anion Gap 12 12 - 20 [facility] Urea Nitrogen (BUN) 11 9 - 16 mg/dL [facility] Creatinine, Serum 1.09 0.5 - 1.4 mg/dL [facility] Estimated Glomerular Filt Rate 55 [facility] Comment:Chronic Kidney Disea se: Estimated GFR < 60 mL/min/1.51e1Nupylw Kidney Disease: Estimated GFR < 15 mL/min/1.73m2 Glucose 99 60 - 115 mg/dL [facility] Calcium 9.9 8.4 - 10.2 mg/dL [facility] Bilirubin, Total 0.3 0.0 - 1.0 mg/dL [facility] Aspartate Amino Transferase 48(H) 5 - 31 U/L [facility] Alanine Aminotransferase 57(H) 0 - 31 U/L [facility] Total Protein 7.8 6.5 - 8.0 g/dL [facility] Albumin Level 4.5 3.5 - 5.0 g/dL [facility] Alkaline Phosphatase 103 39 - 117 U/L [facility] Blood Venous blood specimen / Unknown 12/12/2024 2:53 PM EDT 12/12/2024 4:39 PM EDT Anne Beltrán [facility] LAB BLOOD ORDERABLES Molly l Result [facility] [address] [place] [phone] * POCT HGB A1C (12/01/2024 4:11 PM EDT) Hemoglobin A1C 5.7 4.0 - 5.7 % [employer] Lot # [id number] Lot# Expiration Date 627 Blood 12/01/2024 4:11 PM EDT Soco Alexis NP POINT OF CARE TEST ENTER/EDIT OR DERABLES Final Result * POCT Glucose (12/01/2024 4:11 PM EDT) Glucose Blood, POC 170 60 - 200 mg/dL [employer] Lot # [id number] Lot# Expiration Date Blood Capillary blood specimen / Unknown 12/01/2024 4:11 PM EDT Soco Alexis NP POINT OF CARE TEST ENTER/EDIT OR DERABLES Final Result from Last 3 Months Insurance [facility] MEDIC[facility] Care Teams Mri Assistant Relationship Specialty Start Date End Date Soco Alexis NP [address] [place] [phone] PCP - General Family Medicine 10/06/24
--- OUTSIDE RECORDS SUMMARY | 2025-02-18 17:17 | XMS_ITS | Encounter Summary ---
Author Organization [facility] Address [address] [place] [address] Phone Care Team Providers Care Tailor Garment Fitter Name Role Phone Soco Alexis ELECTROMAGNET CRANE OPERATOR Unavailable [phone] Keily Maldonado SPECIAL DELIVERY CLERK Unavailable Cassi CarpenterC Unavailable dylan Nico Patel MD Unavailable [phone] Stuart Saunders MD Unavailable [phone] Glenna Granados ROUNDHOUSE FIRER/FIREMAN Unavailable Rachana Otto MD Primary Care Provider Ibis Wilson RN Unavailable Luisa Vega Unavailable [phone] Moni Argueta RN Unavailable [phone] Pcp, Unknown Primary Care Provider Unavailabl e Soco Alexis ELECTROMAGNET CRANE OPERATOR Primary Care Provider Encounter Details Date Type Department Care Team (Late st Contact Info) Description 05/14/2024 Procedure Pass [facility], Ct Scan - [address] [address] Social History Tobacco Use Types Packs/Day Years [...] computer) with a working camera? Yes 10/01/2023 Intimate Partner Violence Answer Date R ecorded Are you denied basic needs s uch as food, clothing, or medical care? No 05/14/2024 In the past 12 months have y ou been in a relationship with a person who hurts, threatens, or tries to control you? No 05/14/2024 Are you denied basic needs s uch as food, clothing, or medical care? No 05/14/2024 In the past 12 months have y ou been in a relationship with a person who hurts, threatens, or tries to control you? 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 Wish to be (Past 1 Month) No 05/14/2024 4:20 PM EST Kristin Rodriguez RN 2. Non-Specific Active Suicidal Thoughts (Past 1 Month) No 05/14/2024 4:20 PM Kristin Baum RN 6. Suicidal Behavior (Lifetime) No 05/14/2024 4:20 PM Kristin Baum RN documented as of this encounter Plan of Treatment Upcoming Encounters Date Type Department Care Team (Late st Contact Info) Description 02/17/2025 Procedure Pass [facility], [facility] [address] [place] [address] 03/16/2025 8:00 AM EST Telemedicine [facility] 32 [facility], 9th Floor, [address] [place] [address] Krysta Villagomez FNP 32 [facility] [address] [place] [address] 10/19/2025 12:30 PM EDT Appointment [facility], [facility] [address] [place] [address] Soco Alexis, ELECTROMAGNET CRANE OPERATOR [address] [place] [address] documented as of this encounter Visit Diagnoses Not on filedocumented in this encounter Additional Health Concerns Infection Onset Date Last Indicated Resolved Time CoV-Risk 05/14/2024 05/14/2024 05/25/2024 1:23 AM EST [...] documented as of this encounter Care Teams Tailor Garment Fitter Relationship Specialty Start Date End Date Rachana Otto MD [address] [place] [address] [place] [phone] [email or web address] PCP - General Family Medicine 05/31/23 10/20/24 Pcp, Unknown PCP - General 11/11/24 12/01/24 Soco Alexis, ELECTROMAGNET CRANE OPERATOR [address] [place] [address] PCP - General Nurse Practitioner 12/02/24 Soco Alexis ELECTROMAGNET CRANE OPERATOR 03/02/17 12/01/24 Keily Maldonado CNP [address] [place] [address] [email or web address] Nurse Practitioner Medical Oncology 02/16/22 Cassi Carpenter PA-C [address] [place] [address] [email or web address] Physician Airport Attendant Medical Oncology 03/22/22 08/14/24 Nico Patel MD [address] [place] [address] [address], [place] [address] [email or web address] Primary Oncologist Hematology 07/13/22 Stuart Saunders MD [address] [place] [address] [email or web address] Primary Oncologist Medical Oncology 01/22/23 Glenna Granados FNP [address] [place] [address] Nurse Practitioner Medical Oncology 03/12/23 08/14/24 Ibis Wilson, OLIVIA [address] [place] [phone] Primary Infusion Nurse 08/14/23 Luisa Vega [address] [place] [phone] Music Therapist 07/25/24 Moni Argueta RN [address] [place] [address] [email or web address] Nurse Navigator 08/15/24 documented as of this encounter Additional Source Comments The information contained in this document represents components of the legal health record. It is not the complete legal health record.[facility]
--- OUTSIDE RECORDS SUMMARY | 2025-02-18 17:17 | XMS_ITS | Encounter Summary ---
Author Organization [facility] Address [address] [place] [address] Phone Care Team Providers Care Electroencephalograph Technician Name Role Phone Keily Maldonado DAIRY HELPER Unavailable Nico Patel MD Unavailable Stuart Saunders MD Unavailable [phone] Ibis Wilson RN Unavailable Luisa Vega Unavailable [phone] Moni Argueta RN Unavailable [phone] Soco Alexis NP Primary Care Provider [phone] Encounter Details Date Type Department Care Team (Latest Contact Info) Description 02/17/2025 Transcribe Orders Virtual Department [address] [place] [address] Soco Alexis NP [address] [place], [place] [phone] Breast screening (Primary Dx) Social History Tobacco Use Types Packs/Day Years [...] st Contact Info) Description 02/17/2025 Procedure Pass [address] [address] 03/16/2025 8:00 AM EST Telemedicine [facility] 32 [facility], 9th Floor, [address] [place] [address] Krysta Villagomez FNP 32 [facility] [address] [place] [address] [email or web address] 10/19/2025 12:30 PM EDT Appointment [address] [address] Soco Alexis NP [address] [place] [address] Scheduled Orders Name Type Priority Associated Diagnoses Orde r Schedule Mammogram Screening (Bilateral) Imaging Routine Breast screening Expected: 03/20/2025, Expires: 02/17/2026 documented as of this encounter Visit Diagnoses Diagnosis Breast screening- Primary Breast screening, unspecified documented in this encounter Additional Health Concerns Assessment Noted Time PHQ-2 Depression Total Score: 2 05/17/19 23 10:19 AM EST documented as of this encounter Care Teams Electroencephalograph Technician Relationship Specialty Start Date End Date Soco Alexis NP [address] [place] [address] PCP - General Nurse Practitioner 12/02/24 Keily Maldonado CNP [address] [place] [address] [email or web address] Nurse Practitioner Medical Oncology 02/16/22 Nico Patel MD [address] [place] [address] [address] [place] [address] [email or web address] Primary Oncologist Hematology 07/13/22 Stuart Saunders MD 30 [place] [address] [email or web address] Primary Oncologist Medical Oncology 01/22/23 Ibis Wilson RN [address] [place] [phone] [email or web address] Primary Infusion Nurse 08/14/23 Luisa Vega [address] [place] [phone] Music Therapist 07/25/24 Moni Argueta RN 30 [place] [address] [email or web address] Nurse Navigator 08/15/24 documented as of this encounter Additional Source Comments The information contained in this document represents components of the legal health record. It is not the complete legal health record.[facility]
--- OUTSIDE RECORDS SUMMARY | 2025-02-18 17:17 | XMS_ITS | Encounter Summary ---
Author Organization [facility] Address [address] [place] [address] [address] [place] [address] Phone Care Team Providers Care Claims Sorter Name Role Phone Soco Alexis SYSTEMS MECHANIC Unavailable [phone] Keily Maldonado CAN SOLDERER Unavailable Cassi CarpenterC Unavailable [email or web address] Nico Patel MD Unavailable [phone] Stuart Saunders MD Unavailable [phone] Glenna Granados NUCLEAR MEDICINE OFFICER Unavailable Rachana Otto MD Primary Care Provider Ibis Wilson RN Unavailable Luisa Vega Unavailable Moni Argueta RN Unavailable [phone] Pcp, Unknown Primary Care Provider Unavailabl e Soco Alexis SYSTEMS MECHANIC Primary Care Provider Encounter Details Date Type Department Care Team (Late st Contact Info) Description 06/07/2024 Procedure Pass [facility], [place] [address], 2nd Floor, [address] [place] [address] Social History Tobacco Use Types Packs/Day Years [...] got money to buy more. Never True 06/07/2024 Within the past 6 months the food we bought just didn't last and we didn't have enough money to get more. Never True Residential Stability Answer Date Recor ded What is your housing situation today? I have get sing 06/07/2024 How many times have you move d in the past 12 months? Zero (I did not move) 06/07/2024 Paying for Meds Answer Date Recorded Do you have trouble paying for medicines? Yes 06/07/2024 Paying Utility Bills Answer Date Record ed Do you have trouble paying your heating or elect ricity bill? Yes 06/07/2024 Transportation Answer Date Recorded Has the lack of transportati on kept you from medical appointments or from getting medications? No 06/07/2024 Digital Access Answer Date Recorded No 06/07/2024 Yes 06/07/2024 Do you have reliable internet access at home? Ye s 06/07/2024 Do you have a device (e.g., phone, tablet, computer) with a working camera? Yes 06/07/2024 Intimate Partner Violence Answer Date R ecorded Are you denied basic needs s uch as food, clothing, or medical care? No 06/07/2024 In the past 12 months have y ou been in a relationship with a person who hurts, threatens, or tries to control you? No 06/07/2024 Are you denied basic needs s uch as food, clothing, or medical care? No 06/07/2024 In the past 12 months have y ou been in a relationship with a person who hurts, threatens, or tries to control you? 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 Wish to be (Past 1 Month) No 06/07/2024 11:00 PM Rosana Drake RN 2. Non-Specific Active Suicidal Thoughts (Past 1 Month) No 06/07/2024 11:00 PM Rosana Drake RN 6. Suicidal Behavior (Lifetime) No 06/07/2024 11:00 PM Rosana Drake RN documented as of this encounter Plan of Treatment Upcoming Encounters Date Type Department Care Team (Late st Contact Info) Description 02/17/2025 Procedure Pass [address] [address] 03/16/2025 8:00 AM EST Telemedicine [facility] 32 [facility], 9th Floor, [address] [place] [address] Krysta Villagomez FNP 32 [facility] [address] [place] [address] 10/19/2025 12:30 PM EDT Appointment [facility], [facility] 30 [place] [address] Soco Alexis SYSTEMS MECHANIC [address] [place] [address] documented as of this encounter Visit Diagnoses Not on filedocumented in this encounter Additional Health Concerns Infection Onset Date Last Indicated Resolved Time Influenza B 06/04/2024 06/07/2024 06/14/2024 1:22 AM [...] as of this encounter Care Teams Claims Sorter Relationship Specialty Start Date End Date Rachana Otto MD [address] [place] [address] [place] [phone] [email or web address] PCP - General Family Medicine 05/31/23 10/20/24 Pcp, Unknown PCP - General 11/11/24 12/01/24 Soco Alexis SYSTEMS MECHANIC [address] [place] [address] PCP - General Nurse Practitioner 12/02/24 Soco Alexis SYSTEMS MECHANIC 03/02/17 12/01/24 Keily Maldonado CNP [address] [place] [address] [email or web address] Nurse Practitioner Medical Oncology 02/16/22 Cassi Carpenter PA-C [address] [place] [address] [email or web address] Physician Audio Technician Medical Oncology 03/22/22 08/14/24 Nico Patel MD [address] [place] [address] [email or web address] Primary Oncologist Hematology 07/13/22 Stuart Saunders MD [address] [place] [address] [email or web address] Primary Oncologist Medical Oncology 01/22/23 Glenna Granados FNP [address] [place] [address] [email or web address] Nurse Practitioner Medical Oncology 03/12/23 08/14/24 Ibis Wilson, OLIVIA [address] [place] [phone] [email or web address] Primary Infusion Nurse 08/14/23 Luisa Vega [address] [place] [phone] [email or web address] Music Therapist 07/25/24 Moni Argueta RN [address] [place] [address] Nurse Navigator 08/15/24 documented as of this encounter Additional Source Comments The information contained in this document represents components of the legal health record. It is not the complete legal health record.[facility]
--- OUTSIDE RECORDS SUMMARY | 2025-02-18 17:17 | XMS_ITS | Encounter Summary ---
Author Organization [facility] Address [address] [place] [address] Phone Care Team Providers Care Director Content Marketing Name Role Phone Soco Alexis MOTOR VEHICLE INSPECTOR Unavailable [phone] Keily Maldonado MOLD FINISHER Unavailable Cassi CarpenterC Unavailable dylan Azra South RN Unavailable Nico Patel MD Unavailable [phone] Stuart Saunders MD Unavailable [phone] Glenna Granados CLINICAL NURSING INTERN Unavailable [phone] Rachana Otto MD Primary Care Provider Ibis Wilson RN Unavailable Luisa Vega Unavailable Moni Argueta RN Unavailable Pcp, Unknown Primary Care Provider Unavailabl Soco Osullivan MOTOR VEHICLE INSPECTOR Primary Care Provider [phone] Encounter Details Date Type Department Care Team (Late st Contact Info) Description 07/24/2023 Procedure Pass [facility], [address] [facility], 6th [place] [address] Social History Tobacco Use Types Packs/Day Years [...] st Contact Info) Description 02/17/2025 Procedure Pass [facility], [facility] [address] [place] [address] 03/16/2025 8:00 AM EST Telemedicine [facility] 32 [facility], 9th Floor, [address] [place] [address] Krysta Villagomez FNP 32 [facility] [address] [place] [address] 10/19/2025 12:30 PM EDT Appointment [facility], [facility] [address] [place] [address] Soco Alexis, MOTOR VEHICLE INSPECTOR [address] [place] [address] documented as of this encounter Visit Diagnoses Not on filedocumented in this encounter Additional Health Concerns Infection Onset Date Last Indicated Resolved Time CoV-Risk Comment:Per note documentation 07/24/2023 07/24/2023 6:19 PM EDT CDiff-Risk 09/20/2023 09/20/2023 09/20/2023 5:53 PM EDT CDiff-Risk 10/01/2023 10/01/2023 10/02/2023 9:46 AM EDT Other (Comment) Comment:Ruling out norovirus, adenovirus , keep contact plus isolation flag until all negative. 10/03/2023 10/03/202310/04 8:14 AM EDT CoV-Risk Comment:Per note documentation 11/11/2023 11/11/2023 12:39 PM EDT Rhino/Entero 04/04/2024 04/04/2024 04/11/2024 1:25 AM EST CoV-Risk 05/14/2024 05/14/2024 05/25/2024 1:2 3 AM EST CoV-Risk Comment:Per note documentation 06/04/2024 [...] documented as of this encounter Care Teams Director Content Marketing Relationship Specialty Start Date End Date Rachana Otto MD [address] [place] [address] [place] [phone] [email or web address] PCP - General Family Medicine 05/31/23 10/20/24 Pcp, Unknown PCP - General 11/11/24 12/01/24 Soco Alexis, JADE [address] [place] [address] PCP - General Nurse Practitioner 12/02/24 Soco Alexis NP 03/02/17 12/01/24 Keily Maldonado CNP [address] [place] [address] Nurse Practitioner Medical Oncology 02/16/22 Cassi Carpenter PA-C 30 [place] [address] Physician Csr Medical Oncology 03/22/22 08/14/24 Azra South, OLIVIA [address] [place] [address] PHCM Gravel Machine Operator 05/09/22 04/08/24 Nico Patel MD [address] [place] [address] [address] [place] [address] Primary Oncologist Hematology 07/13/22 Stuart Saunders MD [address] [place] [address] Primary Oncologist Medical Oncology 01/22/23 Glenna Granados FNP [address] [place] [address] Nurse Practitioner Medical Oncology 03/12/23 08/14/24 Ibis Wilson RN [address] [place] [phone] Primary Infusion Nurse 08/14/23 Luisa Vega [address] [place] [phone] Music Therapist 07/25/24 Moni Argueta RN [address] [place] [phone] Nurse Navigator 08/15/24 documented as of this encounter Additional Source Comments The information contained in this document represents components of the legal health record. It is not the complete legal health record.[facility]
--- OUTSIDE RECORDS SUMMARY | 2025-02-18 17:17 | XMS_ITS | Encounter Summary ---
Author Organization [facility] Address [address] [place] [address] Phone Care Team Providers Care Sweep Press Operator Name Role Phone Soco Alexis NP Unavailable [phone] Guru Glynn MD Unavailable [phone] Keily Maldonado CNP Unavailable Cassi Carpenter PA-C Unavailable [email or web address] Azra South RN Unavailable Nico Patel MD Unavailable Stuart Saunders MD Unavailable [phone] Glenna Granados MAIL DELIVERER Unavailable Rachana Otto MD Primary Care Provider [phone] Rachana Otto MD Primary Care Provider Ibis Wilson RN Unavailable Luisa Vega Unavailable [phone] Moni Argueta RN Unavailable Pcp, Unknown Primary Care Provider Unavailabl e Graef, Soco B MARKER MACHINE ATTENDANT Primary Care Provider [phone] Encounter Details Date Type Department Care Team (Late st Contact Info) Description 03/22/2023 Procedure Pass [address] [place] [address] Social History Tobacco Use Types Packs/Day Years [...] st Contact Info) Description 02/17/2025 Procedure Pass [facility] [address] [place] [address] 03/16/2025 8:00 AM EST Telemedicine [facility] 32 [facility], 9th Floor, [address] [place] [address] Krysta Villagomez FNP 32 [facility] [address] [place] [address] [email or web address] 10/19/2025 12:30 PM EDT Appointment [facility], [facility] [address] [place] [address] Soco Alexis, MARKER MACHINE ATTENDANT [address] [place] [address] documented as of this encounter Visit Diagnoses [...] 11/11/2023 11/11/2023 12:39 PM EDT Rhino/Entero 04/04/2024 04/04/202404/11/2024 1:25 AM EST CoV-Risk 05/14/2024 05/14/2024 05/25/2024 [...] documented as of this encounter Care Teams Sweep Press Operator Relationship Specialty Start Date End Date Rachana Otto MD 30 [place] [address] [email or web address] PCP - General Family Medicine 03/14/23 05/30/23 Rachana Otto MD [address] [place] [address] [place] [phone] [email or web address] PCP - General Family Medicine 05/31/23 10/20/24 Pcp, Unknown PCP - General 11/11/24 12/01/24 Soco Alexis, MARKER MACHINE ATTENDANT [address] [place] [address] PCP - General Nurse Practitioner 12/02/24 Soco Alexis MARKER MACHINE ATTENDANT 03/02/17 12/01/24 Guru Glynn MD [address] [place] [address] [address] [place] [address] [email or web address] Primary Oncologist Medical Oncology 01/24/22 05/09/23 Keily Maldonado CNP [address] [place] [address] Nurse Practitioner Medical Oncology 02/16/22 Cassi Carpenter PA-C [address] [place] [address] Physician Sack Cleaner Medical Oncology 03/22/22 08/14/24 Azra South, OLIVIA [address] [place] [address] PHCM Cable Machine Operator 05/09/22 04/08/24 Nico Patel MD [address] [place] [address] [address] [address] Primary Oncologist Hematology 07/13/22 Stuart Saunders MD [address] [place] [address] Primary Oncologist Medical Oncology 01/22/23 Glenna Granados FNP [address] [place] [address] [email or web address] Nurse Practitioner Medical Oncology 03/12/23 08/14/24 Ibis Wilson RN [address] [place] [phone] [email or web address] Primary Infusion Nurse 08/14/23 Luisa Vega [address] [place] [phone] Music Therapist 07/25/24 Moni Argueta RN [address] [place] [address] [email or web address] Nurse Navigator 08/15/24 documented as of this encounter Additional Source Comments The information contained in this document represents components of the legal health record. It is not the complete legal health record.[facility]
--- OUTSIDE RECORDS SUMMARY | 2025-02-18 17:17 | XMS_ITS ---
Author Organization [facility] Address [address] [facility] [address] [place] [address] Phone Care Team Providers Care Record Cutter Name Role Phone Keily Maldonado SILO MAN Unavailable Nico Patel MD Unavailable [phone] Stuart Saunders MD Unavailable [phone] Ibis Wilson RN Unavailable Luisa Vega Unavailable [phone] Moni Argueta RN Unavailable Soco Alexis NP Primary Care Provider [phone] Active Problems * This document contains information received from the source organization and may not represent a complete record from that organization. Patient Care Coordination No te Formatting of this note migh t be different from the original. 06/12/24 bin [id number] meddadv gp nejerx [id number] MATTY FAITH FOR ZEPBOUND APPROVED 08/28/24 TO [...] Parainfluenza URI w asthma exacerbation Rhinovirus 04/2024. [facility] ICU 05/2024 w/ multifocal PNA w/ influenza A & asthma exacerbation. [facility] 07/22-07/26 for influenza B infection w/asthma exacerbation. [facility] 10/09 -or asthma exacerbation w/ unrevealing infectious w/u, treated w inhalers and steroids. Re-presented 10/13 to [facility] ED on 10/13 w/ increased dyspnea/orthopnea, cough, chest pain, and fevers (102.5). Started on cefepime (10/13-10/15) & SoluMedrol 125 mg IV x1. Transfer to [facility]. Doxycyline started 10/13 for empiric CAP coverage. [...] Parainfluenza URI w asthma exacerbation Rhinovirus 04/2024. [facility] ICU 05/2024 w/ multifocal PNA w/ influenza A & asthma exacerbation. [facility] 07/22-07/26 for influenza B infection w/asthma exacerbation. [facility] 10/09 -or asthma exacerbation w/ unrevealing infectious w/u, treated w inhalers and steroids. Re-presented 10/13 to [facility] ED on 10/13 w/ increased dyspnea/orthopnea, cough, chest pain, and fevers (102.5). Started on cefepime & SoluMedrol 125 mg IV x1. Transfer to [facility]. Doxycyline started 10/13 for empiric CAP coverage. [...] w/ asthma exacerbations. Rhinovirus 04/2024. Admitted to [facility] ICU late May 2024 w/subsequent [facility] transfer for multifocal PNA w/ influenza A infection w/ asthma exacerbation. Re-admitted to [facility] 07/22-07/26 for influenza B infection w/asthma exacerbation. Recent admitted to [facility] 10/09 for asthma exacerbation w/ unrevealing infectious w/u, for which pt received inhalers and steroids.. Discharged 10/11, but re-presented to [facility] ED on 10/13 w/ increased dyspnea/orthopnea, cough, chest pain, and fevers (101.2F at home, 102.5F in ED). Bld cx's drawn x2, limited RVP (-) for Flu A, Flu B, & Covid-19. She was started on cefepime & received SoluMedrol 125 mg IV x1. CXR (10/13) showed low b/l lung volumes w/bibasilar bronchovascular crowding. On transfer to [facility], exam notable for diffuse expiratory wheezes & [...] dosed steroids for hypotension x1 on 07/24. Anusha stim c/w adrenal insufficiency (cortisol 0.4 to 10.7) - Off prednisone Assessment & Plan (07/25/2024 1:12 PM EDT): S/p 4 week taper of steroids for pancreatitis / colitis with prior lymphoma treatment. Required stress dosed steroids for hypotension x1 on 07/24. Anusha stim c/w adrenal insufficiency (cortisol 0.4 to 10.7) on 08/2023, though Pt self-d/c'd steroids 02/2024. - Remains off prednisone - Consider stress-dosed steroids if HDUS or ill-appearing Assessment & Plan (07/24/2024 4:04 PM EDT): S/p 4 week taper of steroids for pancreatitis / colitis with prior lymphoma treatment. Required stress dosed steroids for hypotension x1 on 07/24. Anusha stim c/w adrenal insufficiency (cortisol 0.4 to [...] dosed steroids for hypotension x1 on 07/24. Anusha stim c/w adrenal insufficiency (cortisol 0.4 to [...] dosed steroids for hypotension x1 on 07/24. Anusha stim c/w adrenal insufficiency (cortisol 0.4 to [...] #Anxiety/Depression/PTSD/Bipolar/ Panic Attacks Was followed by Psychiatry SCRAP CUTTER Jnen Correa closely for ~20years with stable psych regimen. She has moved and connected Otilia to a new provider for medication management and she also has a therapist she sees outpt. - cont home caplyta 42mg daily - Hydroxyzine 100mg nightly - Prazosin 2mg nightly - Xanax 2mg TID (per METALLURGICAL ENGINEERING TEACHER script); reports she takes this nightly IN [...] Has required stress dosed steroids for hypotension. +Anusha stim. Off prednisone since February 2024. - [...] O2 sat > 92%. On transfer to [facility], she is satting 98% on 3L NC. [...] O2 sat > 92%. On transfer to [facility], she is satting 98% on 3L NC. [...] O2 sat > 92%. On transfer to [facility], she is satting 98% on 3L NC. [...] Assessment & Plan (08/14/2023 7:41 AM EDT): #Marlene-anal/rectal pain with induration c/f fistula/abscess Chemotoxicities include diarrhea. Patient c/o worsening marlene-anal/rectal pain especially around times of having bowel movements but now constant 10/10 pain. On exam, skin around marlene-anal area is intact and no notable lesions [...] far bit will continue to monitor. Repeat anusha stim (08/06/23) c/w AI(cortisol 0.4 to 10.7) - CTM BP - consider repeating anusha stim in coming days given recent steroid usage for asthma exacerbations Assessment & Plan (10/15/2024 7:11 AM EDT): s/p 4 week taper of steroids for pancreatitis / colitis with prior lymphoma treatment. Required stress dosed steroids for hypotension x1 on 07/24. Was weaned off prednisone recently and Bps have been holding study so far bit will continue to monitor. Repeat anusha stim (08/06/23) c/w AI(cortisol 0.4 to 10.7) - CTM BP - consider repeating anusha stim in coming days given recent steroid usage for asthma exacerbations Assessment & Plan (10/14/2024 1:35 PM EDT): s/p 4 week taper of steroids for pancreatitis / colitis with prior lymphoma treatment. Required stress dosed steroids for hypotension x1 on 07/24. Was weaned off prednisone recently and Bps have been holding study so far bit will continue to monitor. Repeat anusha stim (08/06/23) c/w AI(cortisol 0.4 to 10.7) - CTM BP - consider repeating anusha stim in coming days given recent steroid [...] etiology and patient not neutropenic. 4 AM Anusha stim test while on prednisone 5 mg [...] higher level of care - discussing with [facility] as may need transfer - discussed with [...] Vasomotor symptoms seemed better with HRT however, Otilia had difficulty keeping the patch on her [...] toxin, adenovirus and norovirus are through the [facility] and would need to be ordered [...] fungal prophylaxis; Fluconazole -Plan to transfer to [facility] for higher level of care Assessment & [...] treatment for T-cell lymphoma. Treatment guided by [facility] oncology after her recent admission, see full [...] B URI (Treated) #Hx ESBL Recent hospitalization 06/04/24-2/ for influenza B and asthma exacerbation, completed [...] for concern for sepsis. On evaluation at [facility], she has no signs of sepsis. Blood [...] for concern for sepsis. On evaluation at [facility], she has no signs of sepsis. Blood [...] Continue Tamiflu 75mg BID for 5-day course (06/04-06/09 AM) - continue home ppx fluconazole 200 [...] for concern for sepsis. On evaluation at [facility], she has no signs of sepsis. Blood cultures remain negative. Procalcitonin is low at 0.15. CXR is clear. Clinically she is non-toxic appearing with no clear source of bacterial infection. Will therefore hold antibiotics and trend vitals and clinical exam. She continues to have wheeze on exam so will send an extended respiratory viral panel (not sent at [facility]) looking for viral co-infection. 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 Cefepime and Flagyl both discontinued with count recovery and improved marlene-anal pain. 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 Of [...] loose stools a day. She presented to [facility] ED on 09/18 for ongoing fevers. She was initially started on vanc and cefepime given concern for a possible emerging PNA on CXR. That evening of 09/18, she became hypotensive and SOB. A rapid response was called. She was givn IVF resuscitation and started on pressors. She was transferred from [facility] ICU to [facility] ICU. She continued to have large amounts [...] iso oversedation leading to suppression of central ACCOUNT SERVICES SPECIALIST and fevers. She was discharged home on [...] iso oversedation leading to suppression of central ACCOUNT SERVICES SPECIALIST and fevers. - HOLD Adderall - Psych [...] 125 mg IV x1 10/13 in [facility] ED. NC CT chest---ILD imaging focus (10/14) w/o significant air trapping. - see management of exacerbation above - Outpatient team to consider repeat PFTs # HTN: Previously on amlodipine, which was stopped given CP. Labetalol started 12/2023 w/ good control. - Cont labetalol 100 mg PO BID w/ parameters #GERD - Continue Omeprazole home regimen #Anxiety/Depression/PTSD/Bipolar/ Panic Attacks: Was followed by Psychiatry SCRAP CUTTER Jenn Correa closely for ~20years with stable psych regimen. She has moved and connected Otilia to a new provider for medication management [...] 125 mg IV x1 10/13 in [facility] ED. [place] CT chest---ILD imaging focus (10/14) w/o significant air trapping. - see management of exacerbation above - Outpatient team to consider repeat PFTs # HTN: Previously on amlodipine, which was stopped given CP. Labetalol started 12/2023 w/ good control. - Cont labetalol 100 mg PO BID w/ parameters #GERD - Continue Omeprazole home regimen #Anxiety/Depression/PTSD/Bipolar/ Panic Attacks: Was followed by Psychiatry SCRAP CUTTER Jenn Correa closely for ~20years with stable psych regimen. She has moved and connected Otilia to a new provider for medication management [...] 125 mg IV x1 10/13 in [facility] ED. - Start prednisone 50 mg daily [...] #Anxiety/Depression/PTSD/Bipolar/ Panic Attacks: Was followed by Psychiatry SCRAP CUTTER Jenn Correa closely for ~20years with stable psych regimen. She has moved and connected Otilia to a new provider for medication management [...] #Anxiety/Depression/PTSD/Bipolar/ Panic Attacks: Was followed by Psychiatry SCRAP CUTTER Jenn Correa closely for ~20years with stable psych regimen. She has moved and connected Otilia to a new provider for medication management [...] #Anxiety/Depression/PTSD/Bipolar/ Panic Attacks: Was followed by Psychiatry SCRAP CUTTER Jenn Correa closely for ~20years with stable psych regimen. She has moved and connected Otilia to a new provider for medication management [...] #Anxiety/Depression/PTSD/Bipolar/ Panic Attacks: Was followed by Psychiatry SCRAP CUTTER Jenn oCrrea closely for ~20years with stable psych regimen. She has moved and connected Otilia to a new provider for medication management [...] #Anxiety/Depression/PTSD/Bipolar/ Panic Attacks: Was followed by Psychiatry SCRAP CUTTER Jenn Correa closely for ~20years with stable psych regimen. She has moved and connected Otilia to a new provider for medication management [...] EDT): #Anxiety/Depression/PTSD/Bipolar/Panic Attacks: #ADHD Followed by Psychiatry SCRAP CUTTER Jenn Correa closely for ~20years with stable psych med regimen of Capylta 42mg daily, Hydroxyzine 100mg nightly, Prazosin 2mg nightly, Xanax 6mg nightly, and Adderall 30mg BID (confirmed with patient and outpatient prescriber). Home Caplyta has been dose reduced to 21mg daily due to drug interactions. Patient does report increased irritability and anxiety while being hospitalized. - Previously followed outpatient w/ company doctor Jenn Correa - Low threshold to involve [...] PM EDT): #Anxiety/Depression/PTSD/Bipolar/Panic Attacks: #ADHD Follows Psychiatry SCRAP CUTTER Jenn Correa closely for ~20years with stable [...] SCT treatment. - Appreciate input from outpatient company doctor Jenn Correa who is readily available to assist in care - Will try to maintain home dosing per Dr. Patel and outpatient company doctor - Low threshold to involve inpatient psychiatry [...] PM EDT): Long-standing issue dating back to 2018. Asymptomatic. 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 Admitting provider spoke with patient's [facility] stem cell physician Dr. Patel, who reviewed laboratory workup including CBC, CMP, chest x-ray, suspected mild leukopenia be secondary to a viral illness more so than bacterial infection contributing to asthma exacerbation, recommended to continue general therapy with steroids 40 mg for additional 4 days, does not require prolonged taper course, further infectious workup, monitoring off antibiotics, did recommend to continue patient's chronic qpvzg-uwxpku-omup disease medications. Did iterate that if patient's respiratory status worsens, worsening laboratory exam, they have accepted her for transfer given her extensive treatment at [facility]. -Continue Bactrim and Valtrex for prophylaxis. 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 -Spoke with patient's [facility] stem cell physician Dr. Patel, who reviewed laboratory workup including CBC, CMP, chest x-ray, suspected mild leukopenia be secondary to a viral illness more so than bacterial infection contributing to asthma exacerbation, recommended to continue general therapy with steroids 40 mg for additional 4 days, does not require prolonged taper course, further infectious workup, monitoring off antibiotics, did recommend to continue patient's chronic rrerk-emgzyu-eqns disease medications. Did iterate that if patient's respiratory status worsens, worsening laboratory exam, they have accepted her for transfer given her extensive treatment at [facility]. -Continue Bactrim and Valtrex for prophylaxis. Assessment [...] 06/19, she was also recently seen at [facility] for second opinion. Labs with no neutropenia [...] with her mental health provider since her [facility] discharge who recommended discontinuation of Zyprexa and [...] T cell lymphoma of lymph nodes of [facility] sites 01/30/2022 Assessment & Plan (10/05/2023 9:48 [...] second opinion scheduled with Dr. Casper in [place]. She has been tolerating current therapy without any significant side effects and will continue as planned. Dr. Saunders is also trying to get the approval for Romidepsin for her RECOMMENDATIONS: Continue current therapy She has second opinion scheduled in [place] next week Follow-up with Dr. Saunders after that Thank you very much for allowing to participate in this patient's care Assessment & Plan (09/24/2022 6:56 AM EDT): Diagnosis: Peripheral T-cell lymphoma Treatment: s/p autologous stem cell transplant with BEAM conditioning, D0= 08/31 Primary Outpatient Provider: Jorge Today, 09/24/22, is Day +24 of BEAM auto transplant on Protocol 22-229 - Transfuse leukoreduced and irradiated blood products [...] ursodiol for VOD prophylaxis. Recommendation to consult [facility] oncology team with updates and treatment plans. Assessment & Plan (09/16/2022 6:47 AM EDT): Diagnosis: Peripheral T-cell lymphoma Treatment: Admitted for autologous stem cell transplant with BEAM conditioning, D0= 08/31 Primary Outpatient Provider: Jorge Today, 09/16/22, is Day +16 of BEAM auto transplant on Protocol 22-229 - Transfuse leukoreduced and irradiated blood products [...] 09/04 pt reports worsening mucositis, required dilaudid SAILBOAT CAPTAIN with good effect. SAILBOAT CAPTAIN discontinued 09/11. TPN stopped on 09/14 - [...] 10:42 AM EDT): Regular checkup with her airport electrician as scheduled or as needed. Unexplained weight [...] her taste and smell sensation. Septic shock Current Treatment and Therapy Plans ACCESS AND FLUSH ([facility])* Plan Start Date:08/16/2023 Plan Provider:Nico Patel MD Linked Problems Peripheral T cell lymphoma o f lymph nodes of multiple sites Treatment Medications No medications scheduled. AXATILIMAB* Plan Start Date:02/15/2025 Plan Provider:Nico Patel MD Linked Problems Peripheral T cell lymphoma o f lymph nodes of multiple sitesGraft vs host disease Treatment Medications No medications scheduled. IMMUNE GLOBULIN ([facility])??* Plan Start Date:11/25/2024 Plan Provider:Krysta Villagomez FNP Linked Problems Peripheral T cell lymphoma o f lymph nodes of multiple sites Treatment Medications No medications scheduled. 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 Past Treatment and Therapy Plans Access and Flush Therapy Plan Plan Name Start Date Discontinue Date Treatment Medications Discontinue Reason Plan Provider ACCESS AND FLUSH ([facility]) 05/15/2022 08/16/2023 No medications scheduled. a. Therapy Complete Cassi Carpenter PA-C BMT PLAN Plan Name Start Date Discontinue Date Treatment Medications Discontinue Reason Plan Provider Cycles IP BMT 967 [facility] FLUDARABINE MELPHALAN/POST TRANSPLANT CYCLOPHOSPHAMIDE 07/18/19 24 10/17/2024 cycloPHOSphamide (CYTOXAN) infusion 250 mL (liquid vial)fludarabine (FLUDARA) IVPB {solution vial}melphalan (EVOMELA) 2 mg/mL in NS IVPB Fr bag a. Therapy Complete Nico Patel MD 1 of 1 cycle started IP BMT 912 [facility] AUTO CARMUSTINE/CYTARAB INE/MELPHALAN/ETOP OSIDE 08/26/1908/23/2022 carmustine (BiCNU)cytarabine (JUNIOR-C)etoposide (VEPESID, TOPOSAR)melphalan m. Entered in error Nico Patel MD Treatment not started Oncology Therapy Plan Plan Name Start Date Discontinue Date Treatment Medications Discontinue Reason Plan Provider 15 MONTHS [facility] POST ALLOGENEIC HEMATOPOIETIC CELL TRANSPLANT VACCINES 11/25/2024 02/15/2025 No medications scheduled. a. Therapy Complete Krysta Villagomez FNP 12 MONTHS [facility] POST ALLOGENEIC HEMATOPOIETIC CELL TRANSPLANT VACCINES 08/28/2024 10/21/2024 No medications scheduled. a. Therapy Complete Nico Patel MD 9 MONTHS [facility] POST ALLOGENEIC HEMATOPOIETIC CELL TRANSPLANT VACCINES 04/25/2024 04/27/2024 No medications scheduled. a. Therapy Complete Krysta Villagomez, RFP WRITER BLOOD PRODUCT TRANSFUSION 08/19/2023 03/27/2024 No medications scheduled. a. Therapy Complete Nico Patel MD HYDRATION & SUPPORTIVE CARE 03/22/2022 08/22/2022 No medications scheduled. a. Therapy Complete Cassi Carpenter PA-C Oncology Therapy Plan Supplemental Plan Name Start Date Discontinue Date Treatment Medications Discontinue Reason Plan Provider PENTAMIDINE IV 08/23/2023 11/25/2024 No medication s scheduled. a. Therapy Complete Krysta Villagomez, RFP WRITER PLERIXAFOR 08/09/2022 08/22/2022 No medications scheduled. a. Therapy Complete Luisa Flores, [facility] PLAN Plan Name Start Date Discontinue Date Treatment Medications Discontinue Reason Plan Provider Cycles -: BLD 08/25/2022 04/26/2023 carmustine (BiCNU) IVPB 1 mg/mL {PVC free bag} Fr bagcytarabine (JUNIOR-C) IVPB {100 mg/mL liquid vial}etoposide (VEPESID, TOPOSAR) infusion QS 1200 mL [id number] or placebo () 20 10^6 cells / kgmelphalan (EVOMELA) 2 mg/mL in NS IVPB Fr bag a. Therapy Complete Nico Patel MD 1 of 1 cycle started TREATMENT PLAN Plan Name Start Date Discontinue Date Treatment Medications Discontinue Reason Plan Provider Cycles DUVELISIB 04/02/20 23 07/16/2023 duvelisib (COPIKTRA) a. Therapy Complete Stuart Saunders MD 1 of 4 cycles started CHOEP-CYCLOP HOSPHAMIDE/D OXORUBICIN/E TOPOSIDE/MICKY CAREY/PRE DNISONE 02/21/20 22 08/22/2022 cycloPHOSphamide (CYTOXAN) infusion 250 mL (liquid vial)DOXOrubicin (ADRIAMYCIN)etoposi de (VEPESID)etoposide (VEPESID, TOPOSAR) infusion (500 mL)vinCRIStine (VINCASAR PFS) IVPB {1 mg/mL vial} a. Therapy Complete Guru Glynn MD 6 of 6 cycles started TREATMENT PLAN-SUPPLEMENTAL Plan Name Start Date Discontinue Date Treatment Medications Discontinue Reason Plan Provider Cycles ROMIDEPSIN 3 07/16/2023 romiDEPsin (ISTODAX) IVPB a. 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 Since her mother also has sarcoid cardiac involvement and sees a anode adjuster as she believes in [place] I requested her to check with her mother the name of this anode adjuster so I could coordinate her personal assessment by the same anode adjuster. I would defer treatment plan until we [...] are unremarkable. Will await PFT results from [facility] recently performed (have been normal in the [...]
--- OUTSIDE RECORDS SUMMARY | 2025-02-18 17:17 | XMS_ITS | Encounter Summary ---
Author Organization [facility] Address [address] [place] [address] Phone Care Team Providers Care Weight Yardage Checker Name Role Phone Soco Alexis PREPARER SAMPLES AND REPAIRS Unavailable [phone] Erica Keily LABOR ECONOMICS TEACHER Unavailable Cassi CarpenterC Unavailable dylan Azra South RN Unavailable Nico Patel MD Unavailable Stuart Saunders MD Unavailable [phone] Glenna Granados INVENTORY CONTROL ASSISTANT Unavailable Rachana Otto MD Primary Care Provider Ibis Wilson RN Unavailable Luisa Vega Unavailable Moni Argueta RN Unavailable Pcp, Unknown Primary Care Provider Unavailabl Soco Osullivan PREPARER SAMPLES AND REPAIRS Primary Care Provider [phone] Encounter Details Date Type Department Care Team (Late st Contact Info) Description 11/28/2023 Procedure Pass [facility] [address] [place] [address] Social History Tobacco Use Types Packs/Day Years [...] as food, clothing, or medical care? No 11/11/2023 In the past 12 months have y ou been in a relationship with a person who hurts, threatens, or tries to control you? No 11/11/2023 Are you denied basic needs s uch as food, clothing, or medical care? No 11/11/2023 In the past 12 months have y ou been in a relationship with a person who hurts, threatens, or tries to control you? 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 file documented as of this encounter Plan of Treatment Upcoming Encounters Date Type Department Care Team (Late st Contact Info) Description 02/17/2025 Procedure Pass [address] [address] 03/16/2025 8:00 AM EST Telemedicine [facility] [address] [facility], 9th Floor, [address] [place] [address] Krysta Villagomez FNP 32 [facility] [address] [place] [address] [email or web address] 10/19/2025 12:30 PM EDT Appointment [address] [address] Soco Alexis NP 230 [place] [address] documented as of this encounter Visit Diagnoses Not on filedocumented in this encounter Additional Health Concerns Infection Onset Date Last Indicated Resolved Time Rhino/Entero 04/04/2024 04/04/2024 04/11/2024 1:25 AM EST [...] documented as of this encounter Care Teams Weight Yardage Checker Relationship Specialty Start Date End Date Rachana Otto MD [address] [place] [address] [place] [phone] [email or web address] PCP - General Family Medicine 05/31/23 10/20/24 Pcp, Unknown PCP - General 11/11/24 12/01/24 Soco Alexis PREPARER SAMPLES AND REPAIRS [address] [place] [address] PCP - General Nurse Practitioner 12/02/24 Soco Alexis PREPARER SAMPLES AND REPAIRS 03/02/17 12/01/24 Keily Maldonado CNP [address] [place] [address] [email or web address] Nurse Practitioner Medical Oncology 02/16/22 Cassi Carpenter PA-C [address] [place] [address] [email or web address] Physician Resaw Machine Operator Medical Oncology 03/22/22 08/14/24 Azra South RN [address] [place] [address] [email or web address] [facility] Patient Insurance Clerk 05/09/22 04/08/24 Nico Patel MD [address] [place] [address] [email or web address] Primary Oncologist Hematology 07/13/22 Stuart Saunders MD [address] [place] [address] [email or web address] Primary Oncologist Medical Oncology 01/22/23 Glenna Granados FNP [address] [place] [address] [email or web address] Nurse Practitioner Medical Oncology 03/12/23 08/14/24 Ibis Wilson RN [address] [place] [phone] Primary Infusion Nurse 08/14/23 Luisa Vgea [address] [place] [phone] [email or web address] Music Therapist 07/25/24 Moni Argueta, OLIVIA [address] [place] [address] [email or web address] Nurse Navigator 08/15/24 documented as of this encounter Additional Source Comments The information contained in this document represents components of the legal health record. It is not the complete legal health record.[facility]
--- OUTSIDE RECORDS SUMMARY | 2025-02-18 17:17 | XMS_ITS | Encounter Summary ---
Author Organization [facility] Address [address] [place] [address] Phone Care Team Providers Care Gripper Installer Name Role Phone Soco Alexis CABINET AND TRIM INSTALLER Unavailable [phone] Keily Maldonado CARTRIDGE MAKER Unavailable Cassi CarpenterC Unavailable dylan Azra South RN Unavailable Nico Patel MD Unavailable Stuart Saunders MD Unavailable [phone] Glenna Granados MARKETING CAMPAIGN ANALYST Unavailable Rachana Otto MD Primary Care Provider Ibis Wilson RN Unavailable Luisa Vega Unavailable Moni Argueta RN Unavailable Pcp, Unknown Primary Care Provider Unavailabl Soco Osullivan CABINET AND TRIM INSTALLER Primary Care Provider [phone] Encounter Details Date Type Department Care Team (Late st Contact Info) Description 01/08/2024 Transcribe Orders [facility] Specimen Processing 30 [place] [address] Rachana Otto MD [address] [place] [address] [email or web address] Social History Tobacco Use Types Packs/Day Years [...] 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 file documented as of this encounter Plan of Treatment Upcoming Encounters Date Type Department Care Team (Late st Contact Info) Description 02/17/2025 Procedure Pass [address] [address] 03/16/2025 8:00 AM EST Telemedicine [facility] [address] [place] [address], 9th Floor, [address] [place] [address] Krysta Villagomez FNP 32 [facility] [address] [place] [address] [email or web address] 10/19/2025 12:30 PM EDT Appointment [address] [address] Soco Alexis NP 230 [place] [address] documented as of this encounter Visit Diagnoses Not on filedocumented in this encounter Additional Health Concerns Infection Onset Date Last Indicated Resolved Time Rhino/Entero 04/04/2024 04/04/202404/11/2024 1:25 AM EST CoV-Risk [...] documented as of this encounter Care Teams Gripper Installer Relationship Specialty Start Date End Date Rachana Otto MD [address] [place] [address] [place] [phone] [email or web address] PCP - General Family Medicine 05/31/23 10/20/24 Pcp, Unknown PCP - General 11/11/24 12/01/24 Soco Alexis CABINET AND TRIM INSTALLER 230 [place] [address] PCP - General Nurse Practitioner 12/02/24 Soco Alexis CABINET AND TRIM INSTALLER 03/02/17 12/01/24 Keily Maldonado CNP [address] [place] [address] [email or web address] Nurse Practitioner Medical Oncology 02/16/22 Cassi Carpenter PA-C [address] [place] [address] [email or web address] Physician Retread Mold Operator Medical Oncology 03/22/22 08/14/24 Azra South RN [address] [place] [address] [email or web address] Financial Accounting Manager 05/09/22 04/08/24 Nico Patel MD [address] [place] [address] [place] [address] [email or web address] Primary Oncologist Hematology 07/13/22 Stuart Saunders MD [address] [place] [address] [email or web address] Primary Oncologist Medical Oncology 01/22/23 Glenna Granados, MARKETING CAMPAIGN ANALYST [address] [place] [address] [email or web address] Nurse Practitioner Medical Oncology 03/12/23 08/14/24 Ibis Wilson, OLIVIA [address] [place] [phone] [email or web address] Primary Infusion Nurse 08/14/23 Luisa Vega [address] [place] [phone] [email or web address] Music Therapist 07/25/24 Moni Argueta RN [address] [place] [address] Nurse Navigator 08/15/24 documented as of this encounter Additional Source Comments The information contained in this document represents components of the legal health record. It is not the complete legal health record.[facility]
--- OUTSIDE RECORDS SUMMARY | 2025-02-18 17:17 | XMS_ITS | Encounter Summary ---
Author Organization [employer] Address [address] [place] [address] 7 [place] [address] Care Team Providers Care Allergy And Immunology Chief Name Role Phone Soco Alexis JADE Primary Care Provider [phone] Encounter Details Date Type Department Care Team (Latest Contact Info) Description 02/17/2025 Travel Social History Tobacco Use Types Packs/Day Years Used Date Smoking Tobacco: Former Cigarettes Passive Smoke Exposure: Past Smokeless Tobacco: Former Depression Answer Date Recorded Patient Health Questionnaire-9 [...] Description 03/02/2025 3:30 PM EDT Office Visit [facility] [address] [place] [address] Soco Alexis NP [address] [place] [address] documented as of this encounter Visit Diagnoses Not on filedocumented in this encounter Additional Health Concerns Assessment Noted Time PHQ-9 Depression Total Score: 12 025 3:49 PM EDT documented as of this encounter Care Teams Allergy And Immunology Chief Relationship Specialty Start Date End Date Soco Alexis NP 230 [place] [address] PCP - General Family Medicine 10/06/24 documented as of this encounter
--- OUTSIDE RECORDS SUMMARY | 2025-02-18 17:17 | XMS_ITS | Encounter Summary ---
Author Organization [facility] Address [address] [place] [address] Phone Care Team Providers Care Supervisor Insulation Name Role Phone Soco Alexis DRIVERS LICENSE EXAMINER Unavailable [phone] Keily Maldonado PROCEDURES ANALYST Unavailable Cassi CarpenterC Unavailable dylan Azra South RN Unavailable Nico Patel MD Unavailable Stuart Saunders MD Unavailable [phone] Glenna Granados BOX ORDER PERSON Unavailable Rachana Otto MD Primary Care Provider Ibis Wilson RN Unavailable Luisa Vega Unavailable Moni Argueta RN Unavailable Pcp, Unknown Primary Care Provider Unavailabl Soco Osullivan DRIVERS LICENSE EXAMINER Primary Care Provider [phone] Encounter Details Date Type Department Care Team (Late st Contact Info) Description 07/24/2023 Procedure Pass [facility], [place] [address] [facility], 6th [place] [address] Social History Tobacco Use Types Packs/Day Years [...] st Contact Info) Description 02/17/2025 Procedure Pass [facility] [address] [place] [address] 03/16/2025 8:00 AM EST Telemedicine [facility] [address] [facility], 9th Floor, [address] [place] [address] Krysta Villagomez FNP 32 [facility] [address] [place] [address] 10/19/2025 12:30 PM EDT Appointment [facility], [facility] [address] [place] [address] Soco Alexis, DRIVERS LICENSE EXAMINER 230 [place] [address] documented as of this encounter Visit Diagnoses [...] as of this encounter Care Teams Supervisor Insulation Relationship Specialty Start Date End Date Rachana Otto MD [address] [place] [address] [place] [phone] [email or web address] PCP - General Family Medicine 05/31/23 10/20/24 Pcp, Unknown PCP - General 11/11/24 12/01/24 Soco Alexis, JADE [address] [place] [address] PCP - General Nurse Practitioner 12/02/24 Soco Alexis NP 03/02/17 12/01/24 Keily Maldonado CNP 30 [place] [address] Nurse Practitioner Medical Oncology 02/16/22 Cassi Carpenter PA-C 30 [place] [address] Physician Wrapper Stemmer Operator Medical Oncology 03/22/22 08/14/24 Azra South, OLIVIA 10 [place] [address] PHCM Clothing And Textiles Teacher 05/09/22 04/08/24 Nico Patel MD [address] [place] [address] [address] [place] [address] Primary Oncologist Hematology 07/13/22 Stuart Saunders MD [address] [place] [address] Primary Oncologist Medical Oncology 01/22/23 Glenna Granados FNP [address] [place] [address] Nurse Practitioner Medical Oncology 03/12/23 08/14/24 Ibis Wilson RN [address] [place] [phone] Primary Infusion Nurse 08/14/23 Luisa Vega [address] [place] [phone] Music Therapist 07/25/24 Moni Argueta RN [address] [place] [phone] Nurse Navigator 08/15/24 documented as of this encounter Additional Source Comments The information contained in this document represents components of the legal health record. It is not the complete legal health record.[facility]
--- OUTSIDE RECORDS SUMMARY | 2025-02-18 17:17 | XMS_ITS | Encounter Summary ---
Author Organization [facility] Address [address] [place] [address] Phone Care Team Providers Care Salt Miner Name Role Phone Soco Alexis GLASSWARE ENGRAVER Unavailable Keily Maldonado SECRET CODE EXPERT Unavailable Cassi CarpenterC Unavailable [email or web address] Nico Patel MD Unavailable Stuart Saunders MD Unavailable [phone] Glenna Granados VOLUNTEER SERVICES MANAGER Unavailable [phone] Rachana Otto MD Primary Care Provider Ibis Wilson RN Unavailable Luisa Vega Unavailable [phone] Moni Argueta RN Unavailable Pcp, Unknown Primary Care Provider Unavailabl e Soco Alexis GLASSWARE ENGRAVER Primary Care Provider [phone] Encounter Details Date Type Department Care Team (Late st Contact Info) Description 07/22/2024 Procedure Pass [facility] [place] 32 [facility], 6th [place] [address] Social History Tobacco Use Types Packs/Day Years [...] got money to buy more. Never True 07/22/2024 Within the past 6 months the food we bought just didn't last and we didn't have enough money to get more. Never True Residential Stability Answer Date Recor ded What is your housing situation today? I have get sing 07/22/2024 How many times have you move d in the past 12 months? Zero (I did not move) 07/22/2024 Paying for Meds Answer Date Recorded Do you have trouble paying for medicines? No 07/22/2024 Paying Utility Bills Answer Date Record ed Do you have trouble paying your heating or elect ricity bill? Yes 07/22/2024 Transportation Answer Date Recorded Has the lack of transportati on kept you from medical appointments or from getting medications? No 07/22/2024 Digital Access Answer Date Recorded No 07/22/2024 Yes 07/22/2024 Do you have reliable internet access at home? Ye s 07/22/2024 Do you have a device (e.g., phone, tablet, computer) with a working camera? Yes 07/22/2024 Intimate Partner Violence Answer Date R ecorded Are you denied basic needs s uch as food, clothing, or medical care? No 07/22/2024 In the past 12 months have y ou been in a relationship with a person who hurts, threatens, or tries to control you? No 07/22/2024 Are you denied basic needs s uch as food, clothing, or medical care? No 07/22/2024 In the past 12 months have y ou been in a relationship with a person who hurts, threatens, or tries to control you? 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 Wish to be (Past 1 Month) No 025 10:00 PM EDT Mary Leigh, OLIVIA 2. Non-Specific Active Suici jared Thoughts (Past 1 Month) No 07/22/2024 10:00 PM EDT Leann Leigh RN 6. Suicidal Behavior (Lifetime) No 5 10:00 PM EDT Mary Leigh RN documented as of this encounter Plan of Treatment Upcoming Encounters Date Type Department Care Team (Late st Contact Info) Description 02/17/2025 Procedure Pass [facility], [address] [address] 03/16/2025 8:00 AM EST Telemedicine [facility]OW [facility] 32 [facility], 9th Floor, [address] [place] [address] Krysta Villagomez, GLORY 32 [facility] [address] 9 [place] [address] [email or web address] 10/19/2025 12:30 PM EDT Appointment [facility], [facility] 30 [place] [address] Soco Alexis GLASSWARE ENGRAVER [address] [place] [address] documented as of this encounter Visit Diagnoses Not on filedocumented in this encounter Additional Health Concerns Infection Onset Date Last Indicated Resolved Time CDiff-Risk 07/22/2024 07/22/2024 07/23/2024 1:38 PM EDT [...] documented as of this encounter Care Teams Salt Miner Relationship Specialty Start Date End Date Rachana Otto MD [address] [place] [address] [place] [phone] [email or web address] PCP - General Family Medicine 05/31/23 10/20/24 Pcp, Unknown PCP - General 11/11/24 12/01/24 Soco Alexis GLASSWARE ENGRAVER [address] [place] [address] PCP - General Nurse Practitioner 12/02/24 Soco Alexis GLASSWARE ENGRAVER 03/02/17 12/01/24 Keily Maldonado CNP 30 [place] [address] Nurse Practitioner Medical Oncology 02/16/22 Cassi Carpenter PA-C [address] [place] [address] Physician Claims Manager Medical Oncology 03/22/22 08/14/24 Nico Patel MD [address] [place] [address] 9[place], [place] [address] Primary Oncologist Hematology 07/13/22 Stuart Saunders MD [address] [place] [address] [email or web address] Primary Oncologist Medical Oncology 01/22/23 Glenna Granados FNP [address] [place] [address] Nurse Practitioner Medical Oncology 03/12/23 08/14/24 Ibis Wilson, OLIVIA [address] [place] [phone] Primary Infusion Nurse 08/14/23 Luisa Vega [address] [place] [phone] Music Therapist 07/25/24 Moni Argueta RN [address] [place] [address] Nurse Navigator 08/15/24 documented as of this encounter Additional Source Comments The information contained in this document represents components of the legal health record. It is not the complete legal health record.[facility]
--- OUTSIDE RECORDS SUMMARY | 2025-02-18 17:17 | XMS_ITS | Encounter Summary ---
Author Organization [facility] Address [address] [place] [address] [address] [place] [address] Phone Care Team Providers Care Water Filter Cleaner Name Role Phone Keily Maldonado INTERNATIONAL RELATIONS TEACHER Unavailable Nico Patel MD Unavailable Stuart Saunders MD Unavailable [phone] Ibis Wilson RN Unavailable Luisa Vega Unavailable [phone] Moni Argueta RN Unavailable [phone] Soco Alexis NP Primary Care Provider [phone] Reason for Visit * Reason Comments Medication Refill Encounter Details Date Type Department Care Team (Late st Contact Info) Description 02/18/2025 Refill [facility] 32 [facility], 9th Floor, [address] [place] [address] Krysta Villagomez FNP 32 [facility] [address] [place] [address] [email or web address] Medication Refill Social History Tobacco Use Types Packs/Day Years [...] 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 file documented as of this encounter Plan of Treatment Upcoming Encounters Date Type Department Care Team (Late st Contact Info) Description 02/17/2025 Procedure Pass [address] [address] 03/16/2025 8:00 AM EST Telemedicine [facility] 32 [facility], 9th Floor, [address] [place] [address] Krysta Villagomez FNP 32 [facility] [address] [place] [address] [email or web address] 10/19/2025 12:30 PM EDT Appointment [address] [address] Soco Alexis NP 230 [place] [address] documented as of this encounter Visit Diagnoses Not on filedocumented in this encounter Additional Health Concerns Assessment Noted Time PHQ-2 Depression Total Score: 2 05/17/19 23 10:19 AM EST documented as of this encounter Care Teams Water Filter Cleaner Relationship Specialty Start Date End Date Soco Alexis NP 230 [place] [address] PCP - General Nurse Practitioner 12/02/24 Keily Maldonado CNP 30 [place] [address] [email or web address] Nurse Practitioner Medical Oncology 02/16/22 Nico Patel MD [address] [place] [address] [address] [address] [email or web address] Primary Oncologist Hematology 07/13/22 Stuart Saunders MD [address] [place] [address] [email or web address] Primary Oncologist Medical Oncology 01/22/23 Ibis Wilson RN [address] [place] [phone] [email or web address] Primary Infusion Nurse 08/14/23 Luisa Vega [address] [place] [phone] [email or web address] Music Therapist 07/25/24 Moni Argueta RN 30 [place] [address] [email or web address] Nurse Navigator 08/15/24 documented as of this encounter Additional Source Comments The information contained in this document represents components of the legal health record. It is not the complete legal health record.[facility]
--- OUTSIDE RECORDS SUMMARY | 2025-02-18 17:17 | XMS_ITS | Encounter Summary ---
Author Organization [facility] Address [address] [place] [address] Phone Care Team Providers Care Turret Lathe Machinist Name Role Phone Soco Alexis PRIMARY SPECIAL EDUCATOR Unavailable [phone] Erica Keily ENVIRONMENTAL LAWYER Unavailable Cassi CarpenterC Unavailable dylan Azra South RN Unavailable Nico Patel MD Unavailable Stuart Saunders MD Unavailable [phone] Glenna Granados BIOMEDICAL EQUIPMENT SUPPORT SPECIALIST Unavailable Rachana Otto MD Primary Care Provider [phone] Ibis Wilson RN Unavailable Luisa Vega Unavailable [phone] Moni Argueta RN Unavailable Pcp, Unknown Primary Care Provider Unavailabl Soco Osullivan PRIMARY SPECIAL EDUCATOR Primary Care Provider [phone] Encounter Details Date Type Department Care Team (Late st Contact Info) Description 06/11/2023 Procedure Pass [facility] MRI, Lunder [address] [facility], 6th [place] [address] Social History Tobacco Use Types Packs/Day Years [...] st Contact Info) Description 02/17/2025 Procedure Pass [facility] [address] [place] [address] 03/16/2025 8:00 AM EST Telemedicine [facility] CENTER FOR BONE MARROW TRANSPLANT 32 [facility], 9th Floor, [address] [place] [address] Krysta Villagomez FNP 32 [facility] [address] 9 [place] [address] 10/19/2025 12:30 PM EDT Appointment [facility], [facility] [address] [place] [address] Soco Alexis, PRIMARY SPECIAL EDUCATOR 230 [place] [address] documented as of this encounter Visit Diagnoses Not on filedocumented in this encounter Additional Health Concerns Infection Onset Date Last Indicated Resolved Time C. diff 05/24/2023 05/24/2023 06/23/2023 1:21 AM EST Parainfluenza 06/06/2023 06/06/2023 06/20/2023 1:2 1 [...] documented as of this encounter Care Teams Turret Lathe Machinist Relationship Specialty Start Date End Date Rachana Otto MD [address] [place] [address] [place] [address] [email or web address] PCP - General Family Medicine 05/31/23 10/20/24 Pcp, Unknown PCP - General 11/11/24 12/01/24 Soco Alexis NP [address] [place] [address] PCP - General Nurse Practitioner 12/02/24 Soco Alexis PRIMARY SPECIAL EDUCATOR 03/02/17 12/01/24 Keily Maldonado CNP [address] [place] [address] Nurse Practitioner Medical Oncology 02/16/22 Cassi Carpenter PA-C [address] [place] [address] Physician Hand Edge Bander Medical Oncology 03/22/22 08/14/24 Azra South, RN [address] [place] [address] PHCM Christmas Bell Ringer 05/09/22 04/08/24 Nico Patel MD 55 [facility] [address]E [place] [address] Primary Oncologist Hematology 07/13/22 Stuart Saunders MD 30 [place] [address] Primary Oncologist Medical Oncology 01/22/23 Glenna Granados FNP [address] [place] [address] Nurse Practitioner Medical Oncology 03/12/23 08/14/24 Ibis Wilson RN 100 [place] [address] Primary Infusion Nurse 08/14/23 Luisa Vega 100 [place] [phone] Music Therapist 07/25/24 Moni Argueta RN 30 [place] [address] Nurse Navigator 08/15/24 documented as of this encounter Additional Source Comments The information contained in this document represents components of the legal health record. It is not the complete legal health record.[facility]
--- OUTSIDE RECORDS SUMMARY | 2025-02-18 17:17 | XMS_ITS | Encounter Summary ---
Author Organization [facility] Address [address] [place] [address] Phone Care Team Providers Care Appliance Fixer Name Role Phone Soco Alexis ATOMIC PHYSICS PROFESSOR Unavailable [phone] Keily Maldonado COAT MAKER Unavailable Cassi CarpenterC Unavailable [email or web address] Nico Patel MD Unavailable Stuart Saunders MD Unavailable [phone] Glenna Granados SCREEN TENDER Unavailable [phone] Rachana Otto MD Primary Care Provider Ibis Wilson RN Unavailable Luisa Vega Unavailable Moni Argueta RN Unavailable [phone] Pcp, Unknown Primary Care Provider Unavailabl e Soco Alexis ATOMIC PHYSICS PROFESSOR Primary Care Provider [phone] Encounter Details Date Type Department Care Team (Late st Contact Info) Description 07/22/2024 Procedure Pass [facility] [place] 32 [facility], 6th [place] [address] Social History Tobacco Use Types Packs/Day Years [...] 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 CENTER FOR BONE MARROW TRANSPLANT 32 [facility], 9th Floor, [address] [place] [address] Krysta Villagomez, GLORY 32 [facility] [address] [place] [address] [email or web address] 10/19/2025 12:30 PM EDT Appointment [facility], [facility] 30 [place] [address] Soco Alexis ATOMIC PHYSICS PROFESSOR 230 [place] [address] documented as of this encounter Visit Diagnoses [...] documented as of this encounter Care Teams Appliance Fixer Relationship Specialty Start Date End Date Rachana Otto MD [address] [place] [address] [place] [address] [email or web address] PCP - General Family Medicine 05/31/23 10/20/24 Pcp, Unknown PCP - General 11/11/24 12/01/24 Soco Alexis ATOMIC PHYSICS PROFESSOR 230 [place] [address] PCP - General Nurse Practitioner 12/02/24 Soco Alexis ATOMIC PHYSICS PROFESSOR 03/02/17 12/01/24 Keily Maldonado CNP 30 [place] [address] Nurse Practitioner Medical Oncology 02/16/22 Cassi Carpenter PA-C [address] [place] [address] Physician [employer] Industrial Arts Teacher Medical Oncology 03/22/22 08/14/24 Nico Patel MD [address] [place] [address] [place], [place] [address] Primary Oncologist Hematology 07/13/22 Stuart Saunders MD [address] [place] [address] [email or web address] Primary Oncologist Medical Oncology 01/22/23 Glenna Granados FNP [address] [place] [address] Nurse Practitioner Medical Oncology 03/12/23 08/14/24 Ibis Wilson, OLIVIA [address] [place] [address] Primary Infusion Nurse 08/14/23 Luisa Vega [address] [place] [phone] Music Therapist 07/25/24 Moni Argueta RN [address] [place] [address] Nurse Navigator 08/15/24 documented as of this encounter Additional Source Comments The information contained in this document represents components of the legal health record. It is not the complete legal health record.[facility]
--- OUTSIDE RECORDS SUMMARY | 2025-02-18 17:17 | XMS_ITS | Encounter Summary ---
Author Organization [facility] Address [address] [place] [address] Phone Care Team Providers Care Photovoltaic Installer Name Role Phone Soco Alexis BOILER CONTROL TECHNICIAN Unavailable [phone] Guru Glynn MD Unavailable Soco Alexis BOILER CONTROL TECHNICIAN Primary Care Provider Keily Maldonado CHASER TAR Unavailable Cassi CarpenterC Unavailable pnugen Azra South RN Unavailable Nico Patel MD Unavailable Stuart Saunders MD Unavailable [phone] Glenna Granados CASING FINISHER AND STUFFER Unavailable [phone] Rachana Otto MD Primary Care Provider Rachana Otto MD Primary Care Provider Ibis Wilson RN Unavailable Luisa Vega Unavailable Moni Argueta RN Unavailable [phone] Pcp, Unknown Primary Care Provider Soco Uriarte BOILER CONTROL TECHNICIAN Primary Care Provider [phone] Encounter Details Date Type Department Care Team (Late Contact Info) Description 02/01/2023 Procedure Pass [address] [address] Social History Tobacco Use Types Packs/Day Years [...] st Contact Info) Description 02/17/2025 Procedure Pass [address] [address] 03/16/2025 8:00 AM EST Telemedicine [facility] FOR BONE MARROW TRANSPLANT 32 [facility], 9th Floor, [address] [place] [address] Krysta Guevara, CASING FINISHER AND STUFFER 32 [facility] [place] [address] 9 [place] [address] [email or web address] 10/19/2025 12:30 PM EDT Appointment [facility] [address] [place] [address] Soco Alexis, BOILER CONTROL TECHNICIAN 230 [place] [address] documented as of this encounter Visit Diagnoses [...] documented as of this encounter Care Teams Photovoltaic Installer Relationship Specialty Start Date End Date Soco Alexis NP PCP - General Family Medicine 01/26/22 03/13/23 Rachana Otto MD [address] [place] [address] [email or web address] PCP - General Family Medicine 03/14/23 05/30/23 Rachana Otto MD [address] [place] [address] [place] [address] [email or web address] PCP - General Family Medicine 05/31/23 10/20/24 Pcp, Unknown PCP - General 11/11/24 12/01/24 Soco Alexis, BOILER CONTROL TECHNICIAN [address] [place] [address] PCP - General Nurse Practitioner 12/02/24 Soco Alexis, BOILER CONTROL TECHNICIAN 03/02/17 12/01/24 Guru Glynn MD [address] [place] [address] [address], [place] [address] [email or web address] Primary Oncologist Medical Oncology 01/24/22 05/09/23 Keily Maldonado CNP [address] [place] [address] Nurse Practitioner Medical Oncology 02/16/22 Cassi Carpenter PA-C [address] [place] [address] Physician Criminal Justice Program Director Medical Oncology 03/22/22 08/14/24 Azra South, OLIVIA [address] [place] [address] [phone] PHCM Furnace Door Tender 05/09/22 04/08/24 Nico Patel MD [address] [place] [address] [place], [place] [address] Primary Oncologist Hematology 07/13/22 Stuart Saunders MD [address] [place] [address] [email or web address] Primary Oncologist Medical Oncology 01/22/23 Glenna Granados FNP [address] [place] [address] [email or web address] Nurse Practitioner Medical Oncology 03/12/23 08/14/24 Ibis Wilson RN [address] [place] [address] [email or web address] Primary Infusion Nurse 08/14/23 Luisa Vega [address] [place] [phone] [email or web address] Music Therapist 07/25/24 Moni Argueta RN [address] [place] [address] [email or web address] Nurse Navigator 08/15/24 documented as of this encounter Additional Source Comments The information contained in this document represents components of the legal health record. It is not the complete legal health record.[facility]
--- OUTSIDE RECORDS SUMMARY | 2025-02-18 17:17 | XMS_ITS | Encounter Summary ---
Author Organization [facility] Address [address] [place] [address] [address] [place] [address] Phone Care Team Providers Care University Teacher Name Role Phone Soco Alexis FAMILY AND CONSUMER EDUCATION TEACHER Unavailable [phone] Keily Maldonado ROOFER VINYL COATING Unavailable Cassi CarpenterC Unavailable dylan Nico Patel MD Unavailable [phone] Stuart Saunders MD Unavailable [phone] Glenna Granados RESPIRATORY EQUIPMENT ASSISTANT Unavailable Rachana Otto MD Primary Care Provider Ibis Wilson RN Unavailable Luisa Vega Unavailable Moni Argueta RN Unavailable [phone] Pcp, Unknown Primary Care Provider Unavailabl e Soco Alexis FAMILY AND CONSUMER EDUCATION TEACHER Primary Care Provider Encounter Details Date Type Department Care Team (Late st Contact Info) Description 06/12/2024 Documentation [facility] 32 [facility], 8th Floor, [address] [place] [address] Diamond Lopez, RN 100 [place] [address] [email or web address] Social History Tobacco Use Types Packs/Day [...] housing situation today? 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 FOR BONE MARROW TRANSPLANT [address] [place] [address], 9th Floor, [address] [place] [address] Krysta Villagomez FNP 32 [facility] [address] [place] [address] [email or web address] 10/19/2025 12:30 PM EDT Appointment [address] [address] Soco Alexis NP [address] [place] [address] documented as of this encounter Visit Diagnoses Not on filedocumented in this encounter Additional Health Concerns Infection Onset Date Last Indicated Resolved Time Influenza B 06/04/2024 06/07/2024 06/14/2024 1:22 AM EST CDiff-Risk 07/22/2024 07/22/2024 07/23/2024 1:38 PM [...] documented as of this encounter Care Teams University Teacher Relationship Specialty Start Date End Date Rachana Otto MD [address] [place] [address] [place] [phone] [email or web address] PCP - General Family Medicine 05/31/23 10/20/24 Pcp, Unknown PCP - General 11/11/24 12/01/24 Soco Alexis NP [address] [place] [address] PCP - General Nurse Practitioner 12/02/24 Soco Alexis NP 03/02/17 12/01/24 Keily Maldonado CNP [address] [place] [address] Nurse Practitioner Medical Oncology 02/16/22 Cassi Carpenter PA-C [address] [place] [address] Physician Superintendent Stations Medical Oncology 03/22/22 08/14/24 Nico Patel MD [address] [place] [address] [address] [place] [address] [email or web address] Primary Oncologist Hematology 07/13/22 Stuart Saunders MD [address] [place] [address] [email or web address] Primary Oncologist Medical Oncology 01/22/23 Glenna Granados, RESPIRATORY EQUIPMENT ASSISTANT [address] [place] [address] [email or web address] Nurse Practitioner Medical Oncology 03/12/23 08/14/24 Ibis Wilson RN 100 [place] [address] [email or web address] Primary Infusion Nurse 08/14/23 Luisa Vega 100 [place] [address] [email or web address] Music Therapist 07/25/24 Moni Argueta, OLIVIA 30 [place] [address] [email or web address] Nurse Navigator 08/15/24 documented as of this encounter Additional Source Comments The information contained in this document represents components of the legal health record. It is not the complete legal health record.[facility]
--- OUTSIDE RECORDS SUMMARY | 2025-02-18 17:17 | XMS_ITS | Encounter Summary ---
Author Organization [facility] Address [address] [place] [address] Phone Care Team Providers Care Slasher Runner Name Role Phone Soco Alexis COTTON PRESSER Unavailable [phone] Paco Jean MD, MPH Unavailable [phone] Guru Glynn MD Unavailable Soco Alexis COTTON PRESSER Primary Care Provider Keily Maldonado CUPOLA CHARGER Unavailable Cassi CarpenterC Unavailable dylan Azra South RN Unavailable Nico Patel MD Unavailable Paco Jean MD, MPH Unavailable [phone] Ro HardinW Unavailable [email or web address] Myranda Lloyd Unavailable [email or web address] Stuart Saunders MD Unavailable [phone] Glenna Granados PATIENT FINANCIAL COUNSELOR Unavailable [phone] Rachana Otto MD Primary Care Provider Rachana Otto MD Primary Care Provider [phone] Ibis Wilson RN Unavailable Luisa Vega Unavailable [phone] Moni Argueta RN Unavailable [phone] Pcp, Unknown Primary Care Provider UnavailSoco Hodge NP Primary Care Provider [phone] Encounter Details Date Type Department Care Team (Late st Contact Info) Description 05/23/2022 Procedure Pass [facility], Ct Scan - [address] [address] Social History Tobacco Use Types Packs/Day Years Used Date Smoking Tobacco: Some Days Cigarettes Started: 1991 Smokeless Tobacco: Never Comments:1 cigarette a day a t most; starting Chantix soon Alcohol Use Standard Drinks/Week Comments Not Currently [...] 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 Wish to be (Past 1 Month) No 05/23/2022 6:54 PM Maxine Rodriguez RN 2. Non-Specific Active Suici jared Thoughts (Past 1 Month) No 05/23/2022 6:54 PM Melanie Rodriguez cia, RN 6. Suicidal Behavior (Lifetime) No 6:54 PM Maxine Rodriguez RN documented as of this encounter Plan of Treatment Upcoming Encounters Date Type Department Care Team (Late st Contact Info) Description 02/17/2025 Procedure Pass [address] [address] 03/16/2025 8:00 AM EST Telemedicine [facility] 32 [facility], 9th Floor, [address] [place] [address] Krysta Villagomez FNP 32 [facility] [address] [place] [address] 10/19/2025 12:30 PM EDT Appointment [address] [address] Soco Alexis NP 230 [place] [address] documented as of this encounter Visit Diagnoses Not on filedocumented in this encounter Additional Health Concerns Infection Onset Date Last Indicated Resolved Time CoV-Risk Comment:Neg covid 05/23/2022 05/23/2022 05/24/2022 6:33 [...] documented as of this encounter Care Teams Slasher Runner Relationship Specialty Start Date End Date Soco Alexis COTTON PRESSER PCP - General Family Medicine 01/26/22 03/13/23 Rachana Otto MD 30 [place] [address] [email or web address] PCP - General Family Medicine 03/14/23 05/30/23 Rachana Otto MD [address] [place] [phone] [email or web address] PCP - General Family Medicine 05/31/23 10/20/24 Pcp, Unknown PCP - General 11/11/24 12/01/24 Soco Alexis COTTON PRESSER 230 [place] [address] PCP - General Nurse Practitioner 12/02/24 Soco Alexis COTTON PRESSER 03/02/17 12/01/24 Paco Jean MD, MPH [address] [place] [address] [email or web address] Insurance Assigned Provider 03/12/22 07/15/22 Guru Glynn MD [address] [place] [address] [address] [place] [address] [email or web address] Primary Oncologist Medical Oncology 01/24/22 05/09/23 Keily Maldonado CNP 30 [place] [address] [email or web address] Nurse Practitioner Medical Oncology 02/16/22 Cassi Carpenter PA-C 30 [place] [address] [email or web address] Physician Information Services Tech Medical Oncology 03/22/22 08/14/24 Azra South, OLIVIA [address] [place] [address] [email or web address] PHCM Bulk Gas Specialist 05/09/22 04/08/24 Nico Patel MD [address] [place] [address] [address] [place] [address] [email or web address] Primary Oncologist Hematology 07/13/22 Paco Jean MD, MPH 70 [place] [address] [email or web address] Insurance Assigned Provider 09/09/22 01/13/23 Ro Hardin, STOCK ROLLER 10 [place] [address] [email or web address] PHCM Turret Lathe Tender 12/01/22 12/11/22 Myranda Lloyd 10 [place] [address] [email or web address] PHCM Community Tester Rocket Engine 01/16/23 01/17/23 Stuart Saunders MD [address] [place] [address] Primary Oncologist Medical Oncology 01/22/23 Glenna Granados FNP [address] [place] [address] Nurse Practitioner Medical Oncology 03/12/23 08/14/24 Ibis Wilson RN [address] [place] [phone] Primary Infusion Nurse 08/14/23 Luisa Vega [address] [place] [phone] Music Therapist 07/25/24 Moni Argueta RN [address] [place] [address] [email or web address] Nurse Navigator 08/15/24 documented as of this encounter Additional Source Comments The information contained in this document represents components of the legal health record. It is not the complete legal health record.[facility]
--- OUTSIDE RECORDS SUMMARY | 2025-02-18 17:17 | XMS_ITS | Encounter Summary ---
Author Organization [employer] Address [address] [place] [address] 7t [place] [address] Care Team Providers Care Music Typographer Name Role Phone Soco Alexis NP Primary Care Provider [phone] Reason for Visit * Reason Onset Date Comments Chart Prep 02/16/2025 Encounter Details Date Type Department Care Team ([facility] st Contact Info) Description 02/16/2025 Telephone [facility] MEDICINE [address] [place], [place] [phone] Soco Alexis NP [address] [place], [place] [phone] Chart Prep Social History Tobacco Use Types Packs/Day Years Used Date Smoking Tobacco: Former Cigarettes Passive Smoke Exposure: Past Smokeless Tobacco: Never Depression Answer Date Recorded [...] t he electric, gas, oil or water [employer] threatened to shut off services in your [...] encounter Miscellaneous Notes * Telephone Encounter - Shannan Titus [place] - 02/16/2025 2:03 PM EDT Chart Prep Labs: done from 01/28/25 Images: done from 12/11/24 Referrals: Pain Medicine - Pending appointment, refferal was faxed over again on 02/03/25 due to incomplete notes. Vaccines due: Covid, Hep B, Zoster, and HPV Screenings: mammogram, eye exam, foot exam, and HIV, Lipid panel, Hep C, LMP. Overdue care gaps: Tobacco documented in this encounter Plan of Treatment Upcoming Encounters Date Type Department Care Team (Late st Contact Info) Description 03/02/2025 3:30 PM EDT Office Visit [facility] MEDICINE [address] [place] [address] Soco Alexis NP [address] [place] [address] documented as of this encounter Visit Diagnoses Not on filedocumented in this encounter Additional Health Concerns Assessment Noted Time PHQ-9 Depression Total Score: 12 025 3:49 PM EDT documented as of this encounter Care Teams Music Typographer Relationship Specialty Start Date End Date Soco Alexis NP [address] [place] [address] PCP - General Family Medicine 10/06/24 documented as of this encounter
--- OUTSIDE RECORDS SUMMARY | 2025-02-18 17:17 | XMS_ITS | Encounter Summary ---
Author Organization [facility] Address [address] [place] [address] Phone Care Team Providers Care Silicator Name Role Phone Soco Alexis DIRECTOR INTERNAL AUDIT Unavailable [phone] Keily Maldonado [employer] INTERMODAL TRUCK DRIVER Unavailable Cassi Carpenter PA-C Unavailable dylan Azra South RN Unavailable Nico Patel MD Unavailable Stuart Saunders MD Unavailable [phone] Glenna Granados RESIDENT SERVICES DIRECTOR Unavailable [phone] Rachana Otto MD Primary Care Provider Rachana Otto MD Primary Care Provider Ibis Wilson RN Unavailable Luisa Vega Unavailable [phone] Moni Argueta RN Unavailable [phone] Pcp, Unknown Primary Care Provider Unavailabl Soco Osullivan DIRECTOR INTERNAL AUDIT Primary Care Provider [phone] Encounter Details Date Type Department Care Team (Late Contact Info) Description 05/14/2023 Procedure Pass [address] [address] Social History Tobacco Use Types Packs/Day Years [...] (Late Contact Info) Description 02/17/2025 Procedure Pass [address] [address] 03/16/2025 8:00 AM EST Telemedicine [facility] 32 [facility], 9th Floor, [address] [place] [address] Krysta Villagomez FNP 32 [facility] [address] [place] [address] 10/19/2025 12:30 PM EDT Appointment [facility] [address] [place] [address] Soco Alexis, DIRECTOR INTERNAL AUDIT [address] [place] [address] documented as of this encounter Visit Diagnoses [...] documented as of this encounter Care Teams Silicator Relationship Specialty Start Date End Date Rachana Otto MD 30 [place] [address] [email or web address] PCP - General Family Medicine 03/14/23 05/30/23 Rachana Otto MD [address] [place] [address] [place] [address] [email or web address] PCP - General Family Medicine 05/31/23 10/20/24 Pcp, Unknown PCP - General 11/11/24 12/01/24 Soco Alexis, DIRECTOR INTERNAL AUDIT [address] [place] [address] PCP - General Nurse Practitioner 12/02/24 Soco Alexis DIRECTOR INTERNAL AUDIT 03/02/17 12/01/24 Keily Maldonado CNP [address] [place] [address] [email or web address] Nurse Practitioner Medical Oncology 02/16/22 Cassi Carpenter PA-C [address] [place] [address] Physician [employer] Combination Teacher Medical Oncology 03/22/22 08/14/24 Azra South RN [address] [place] [address] [email or web address] PHCM Unitizer 05/09/22 04/08/24 Nico Patel MD [address] [place] [address] [email or web address] Primary Oncologist Hematology 07/13/22 Stuart Saunders MD [address] [place] [address] [email or web address] Primary Oncologist Medical Oncology 01/22/23 Glenna Granados FNP [address] [place] [address] Nurse Practitioner Medical Oncology 03/12/23 08/14/24 Ibis Wilson, OLIVIA [address] [place] [phone] Primary Infusion Nurse 08/14/23 Luisa Vega [address] [place] [phone] Music Therapist 07/25/24 Moni Argueta, OLIVIA [address] [place] [address] [email or web address] Nurse Navigator 08/15/24 documented as of this encounter Additional Source Comments The information contained in this document represents components of the legal health record. It is not the complete legal health record.[facility]
--- OUTSIDE RECORDS SUMMARY | 2025-02-18 17:17 | XMS_ITS | Encounter Summary ---
Author Organization [facility] Address [address] [place] [address] Phone Care Team Providers Care Back Roll Lathe Operator Name Role Phone Soco Alexis BOILER HOUSE OPERATOR Unavailable [phone] Keily Maldonado PETROLOGY TEACHER Unavailable Cassi CarpenterC Unavailable dylan Nico Patel MD Unavailable Stuart Saunders MD Unavailable [phone] Glenna Granados TREAD BUILDER Unavailable Rachana Otto MD Primary Care Provider Ibis Wilson RN Unavailable Luisa Vega Unavailable Moni Argueta RN Unavailable [phone] Pcp, Unknown Primary Care Provider Unavailabl e Soco Alexis BOILER HOUSE OPERATOR Primary Care Provider Encounter Details Date Type Department Care Team (Late st Contact Info) Description 06/04/2024 Procedure Pass [facility], Ct Scan - [address] [address] Social History Tobacco Use Types Packs/Day Years [...] 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[employer]; 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 file documented as of this encounter Functional Status * Calculated C-SSRS Risk Score (Lifetime/Recent) Answer Date of Assessment Author No Risk Indicated 06/07/2024 11:00 PM Jenn Drake RN * [place] Suicide Severity Rating Scale (Screener/Recent Self-Report) Question [...] st Contact Info) Description 02/17/2025 Procedure Pass [facility], [facility] [address] [place] [address] 03/16/2025 8:00 AM EST Telemedicine [facility] 32 [facility], 9th Floor, [address] [place] [address] Krysta Villagomez, GLORY 32 [facility] [address] [place] [address] [email or web address] 10/19/2025 12:30 PM EDT Appointment [facility] [address] [place] [address] Soco Alexis BOILER HOUSE OPERATOR 230 [place] [address] documented as of this encounter Visit Diagnoses Not on filedocumented in this encounter Additional Health Concerns Infection Onset Date Last Indicated Resolved Time CoV-Risk Comment:Per note documentation 06/04/2024 06/04/2024 2:55 [...] documented as of this encounter Care Teams Back Roll Lathe Operator Relationship Specialty Start Date End Date Rachana Otto MD [address] [place] [address] [place] [phone] [email or web address] PCP - General Family Medicine 05/31/23 10/20/24 Pcp, Unknown PCP - General 11/11/24 12/01/24 Soco Alexis BOILER HOUSE OPERATOR [address] [place] [address] PCP - General Nurse Practitioner 12/02/24 Soco Alexis BOILER HOUSE OPERATOR 03/02/17 12/01/24 Keily Maldonado CNP [address] [place] [address] [email or web address] Nurse Practitioner Medical Oncology 02/16/22 Cassi Carpenter PA-C [address] [place] [address] [email or web address] Physician Regenerator Operator Medical Oncology 03/22/22 08/14/24 Nico Patel MD [address] [place] [address] [email or web address] Primary Oncologist Hematology 07/13/22 Stuart Saunders MD [address] [place] [address] [email or web address] Primary Oncologist Medical Oncology 01/22/23 Glenna Granados, TREAD BUILDER [address] [place] [address] [email or web address] Nurse Practitioner Medical Oncology 03/12/23 08/14/24 Ibis Wilson, OLIVIA [address] [place] [phone] [email or web address] Primary Infusion Nurse 08/14/23 Luisa Vega [address] [place] [phone] [email or web address] Music Therapist 07/25/24 Moni Argueta RN [address] [place] [address] [email or web address] Nurse Navigator 08/15/24 documented as of this encounter Additional Source Comments The information contained in this document represents components of the legal health record. It is not the complete legal health record.[facility]
--- OUTSIDE RECORDS SUMMARY | 2025-02-18 17:17 | XMS_ITS | Encounter Summary ---
Author Organization [facility] Address [address] [place] [address] Phone Care Team Providers Care Core Rescuer Name Role Phone Soco Alexis PAN GREASER Unavailable [phone] Keily Maldonado SHOE DRESSER Unavailable Cassi CarpenterC Unavailable [email or web address] Azra South RN Unavailable Nico Patel MD Unavailable Stuart Saunders MD Unavailable [phone] Glenna Granados BALLET TEACHER Unavailable [phone] Rachana Otto MD Primary Care Provider Ibis Wilson RN Unavailable Luisa Vega Unavailable Moni Argueta RN Unavailable [phone] Pcp, Unknown Primary Care Provider Unavailabl Soco Osullivan PAN GREASER Primary Care Provider [phone] Encounter Details Date Type Department Care Team (Late st Contact Info) Description 02/15/2024 Procedure Pass [facility] 4 ENDO DEPT [address] [facility], 4th [place] [address] Social History Tobacco Use Types Packs/Day Years [...] 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[employer]; 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 file documented as of this encounter Plan of Treatment Upcoming Encounters Date Type Department Care Team (Late st Contact Info) Description 02/17/2025 Procedure Pass [address] [address] 03/16/2025 8:00 AM EST Telemedicine [facility] 32 [facility], 9th Floor, [address] [place] [address] Krytsa Villagomez FNP 32 [facility] [address] [place] [address] [email or web address] 10/19/2025 12:30 PM EDT Appointment [address] [address] Soco Alexis NP 230 [place] [address] documented as of this encounter Visit Diagnoses [...] documented as of this encounter Care Teams Core Rescuer Relationship Specialty Start Date End Date Rachana Otto MD [address] [place] [address] [place] [phone] [email or web address] PCP - General Family Medicine 05/31/23 10/20/24 Pcp, Unknown PCP - General 11/11/24 12/01/24 Soco Alexis PAN GREASER [address] [place] [address] PCP - General Nurse Practitioner 12/02/24 Soco Alexis PAN GREASER 03/02/17 12/01/24 Keily Maldonado CNP 30 [place] [address] [email or web address] Nurse Practitioner Medical Oncology 02/16/22 Cassi Carpenter PA-C [address] [place] [address] [email or web address] Physician Au Pair Medical Oncology 03/22/22 08/14/24 Azra South RN [address] [place] [address] [email or web address] [facility] Rubber Attacher 05/09/22 04/08/24 Nico Patel MD [address] [place] [address] [email or web address] Primary Oncologist Hematology 07/13/22 Stuart Saunders MD [address] [place] [address] [email or web address] Primary Oncologist Medical Oncology 01/22/23 Glenna Granados FNP [address] [place] [address] [email or web address] Nurse Practitioner Medical Oncology 03/12/23 08/14/24 Ibis Wilson, OLIVIA [address] [place] [phone] Primary Infusion Nurse 08/14/23 Luisa Vega [address] [place] [phone] Music Therapist 07/25/24 Moni Argueta, OLIVIA [address] [place] [address] [email or web address] Nurse Navigator 08/15/24 documented as of this encounter Additional Source Comments The information contained in this document represents components of the legal health record. It is not the complete legal health record.[facility]
--- OUTSIDE RECORDS SUMMARY | 2025-02-18 17:19 | XMS_ITS | Encounter Summary ---
Author Organization [facility] Address [address] [place] [address] Phone Care Team Providers Care Carpet Sewing Machine Operator Name Role Phone Soco Alexis LOOP TACKER Unavailable [phone] Rachana Otto MD Primary Care Provider [phone] Pcao Jean MD, MPH Unavailable [phone] Guru Glynn MD Unavailable Soco Alexis LOOP TACKER Primary Care Provider Keily Maldonado JAVA SQL DEVELOPER Unavailable Cassi CarpenterC Unavailable pnkristel Azra South RN Unavailable Nico Patel MD Unavailable Paco Jean MD, MPH Unavailable [phone] Ro HardinW Unavailable [email or web address] Myranda Lloyd Unavailable [email or web address] Stuart Saunders MD Unavailable [phone] Granados, Glenna B WEIGHT LOSS SALES CONSULTANT Unavailable [phone] Rachana Otto MD Primary Care Provider [phone] Rachana Otto MD Primary Care Provider [phone] Ibis Wilson RN Unavailable GaryParulLuisa Hakan Unavailable [phone] Moni Argueta RN Unavailable [phone] Pcp, Unknown Primary Care Provider UnavailSoco Hodge NP Primary Care Provider [phone] Encounter Details Date Type Department Care Team (Latest Contact Info) Description 02/25/2020 Transcribe Orders [facility] 10 [facility] 2nd [place] [address] Ibis Koch PA-C [address], [address] [place] [address] [email or web address] Constipation, unspecified constipation type (Primary Dx); Abdominal pain, epigastric Social History Tobacco Use Types Packs/Day Years Used Date Smoking Tobacco: Every Day Smokeless Tobacco: Never Comments:cut back to 3 or 5 cig a day Alcohol Use Standard Drinks/Week Comments Yes 0 (1 standard drink = 0.6 oz pur e alcohol) occasionally Comments Unknown Sex and Gender Information Value [...] Info) Description 02/17/2025 Procedure Pass [facility] 30 [place] [address] 03/16/2025 8:00 AM EST Telemedicine [facility] 32 [facility], 9th Floor, [address] [place] [address] Krysta Villagomez, WEIGHT LOSS SALES CONSULTANT 32 [facility] [address] [place] [address] 10/19/2025 12:30 PM EDT Appointment [facility] [place] 30 [place] [address] Soco Alexis, LOOP TACKER 230 [place] [address] documented as of this encounter Results * TSH (02/25/2020 11:35 AM EDT) TSH 1.42 0.27 - 4.20 uIU/mL [facility] Blood 02/25/2020 11:3 5 AM EDT 02/25/2020 11:39 AM EDT us Ibis Koch PA-C LAB BLOOD ORDERABLES Final Resu lt [address] [address] * C-Reactive Protein (02/25/2020 11:35 AM EDT) Pathologist [facility] C REACTIVE PROTEIN 3.5 0.0 - 4.0 mg/L [facility] Blood 02/25/2020 11:3 5 AM EDT 02/25/2020 11:39 AM EDT Ibis Koch PA-C LAB BLOOD ORDERABLES Final Resu lt [address] [address] * (ABNORMAL) Comprehensive metabolic panel (02/25/2020 11:35 AM EDT) Pathologist [facility] SODIUM 138 133 - 146 mmol/L [facility] POTASSIUM 4.2 3.3 - 5.1 mmol/L [facility] CHLORIDE 107 96 - 108 mmol/L [facility] CO2 21 21 - 35 mmol/L [facility] BUN 16 6 - 19 mg/dL [facility] CREATININE 1.00 0.5 - 1.5 mg/dL [facility] GLUCOSE 109(H) 70 - 99 mg/dL [facility] ALBUMIN 4.4 3.9 - 4.8 g/dL [facility] TOTAL PROTEIN 6.8 6.5 - 8.0 g/dL [facility] CALCIUM 8.9 8.4 - 10.3 mg/dL [facility] ALKALINE PHOSPHATASE 114 39 - 117 U/L [facility] TOTAL BILIRUBIN 0.2 0.0 - 1.2 mg/dL [facility] AST 30 0 - 37 U/L [facility] ALT 37 0 - 40 U/L [facility] GLOBULIN 2.4 1 - 4.8 g/dL [facility] EGFR 71 >59 mL/min/1.7 3m2 [facility] Comment:Estimated glomerular filtration rate calculated using the CKD-EPI equation. ANION GAP 14 10 - 20 mmol/L [facility] Blood 02/25/2020 11:3 5 AM EDT 02/25/2020 11:39 AM EDT us Ibis Koch PA-C LAB BLOOD ORDERABLES Final Resu lt Performing Organization Address City/State/[facility] Co de Phone Number [address] [address] * CBC (02/25/2020 11:35 AM EDT) WBC 6.33 4.00 - 11.00 K/uL [facility] Comment:Note Reference Range updates to all CBC and Differential results. RBC 4.24 3.72 - 5.30 M/uL [facility] HGB 13.1 10.6 - 15.5 g/dL [facility] Comment:Note updated Referen ce Ranges for all CBC and Differential results. HCT 40.0 32.0 - 45.0 % [facility] PLT 261 140 - 430 K/uL [facility] MCV 94.3 78.0 - 97.0 fL [facility] MCH 30.9 25.0 - 33.0 pg [facility] MCHC 32.8 32.0 - 36.0 g/dL [facility] RDW 12.8 11.0 - 16.0 % [facility] MPV 10.6 8.4 - 12.8 fl [facility] NRBC 0.00 0 /100 WBCs [facility] ABSOLUTE NRBC 0.00 0 K/uL [facility] Blood 02/25/2020 11:3 5 AM EDT 02/25/2020 11:39 AM EDT us Ibis Koch PA-C LAB BLOOD ORDERABLES Final Resu lt Performing Organization Address City/[facility]/ZIP Co de Phone Number [address] [address] * Immunoglobulin A (02/25/2020 11:35 AM EDT) IgA 186 70 - 400 mg/dL [facility] Blood 02/25/2020 11:3 5 AM EDT 02/25/2020 11:39 AM EDT us Ibis Koch PA-C LAB BLOOD ORDERABLES Final Resu lt Performing Organization Address [facility] Co de Phone Number [address] [address] * Tissue transglutaminase IgA (02/25/2020 11:35 AM EDT) TTG IGA ANTIBODY <1.2 <4.0 (Negative) U/mL [facility] Blood 02/25/2020 11:3 5 AM EDT 02/25/2020 11:39 AM EDT us Ibis Koch PA-C LAB BLOOD ORDERABLES Final Resu lt Performing Organization Address City/[facility]/ZIP Co de Phone Number [facility] [address] [place] [address] documented in this encounter Visit Diagnoses Diagnosis Constipation, unspecified constipation type- Primary Abdominal pain, epigastric documented in this encounter Additional Health Concerns Infection [...] documented as of this encounter Care Teams Carpet Sewing Machine Operator Relationship Specialty Start Date End Date Rachana Otto MD [email or web address] PCP - General Family Medicine 02/25/20 01/25/22 Soco Alexis NP PCP - General Family Medicine 01/26/22 03/13/23 Rachana Otto MD [address] [place] [address] [email or web address] PCP - General Family Medicine 03/14/23 05/30/23 Rachana Otto MD [address] [place] [phone] [email or web address] PCP - General Family Medicine 05/31/23 10/20/24 Pcp, Unknown PCP - General 11/11/24 12/01/24 Soco Alexis NP [address] [place] [address] PCP - General Nurse Practitioner 12/02/24 Soco Alexis LOOP TACKER 03/02/17 12/01/24 Paco Jean MD, MPH [address] [place] [address] [email or web address] Insurance Assigned Provider 03/12/22 07/15/22 Guru Glynn MD [address] [place] [address] [address] [place] [address] [email or web address] Primary Oncologist Medical Oncology 01/24/22 05/09/23 Keily Maldonado CNP [address] [place] [address] [email or web address] Nurse Practitioner Medical Oncology 02/16/22 Cassi Carpenter PA-C [address] [place] [address] [email or web address] Physician Miter Cutter Medical Oncology 03/22/22 08/14/24 Azra South, OLIVIA [address] [place] [address] [email or web address] PHCM Digital Analyst 05/09/22 04/08/24 Nico Patel MD [address] [place] [address] [email or web address] Primary Oncologist Hematology 07/13/22 Paco Jean MD, MPH [address] [place] [address] [email or web address] Insurance Assigned Provider 09/09/22 01/13/23 Ro Hardin LCSW [address] [place] [address] [email or web address] PHCM Choir Director 12/01/22 12/11/22 Myranda Lloyd [address] [place] [address] [email or web address] PHCM Community Emergency Communications Officer 01/16/23 01/17/23 Stuart Saunders MD [address] [place] [address] [email or web address] Primary Oncologist Medical Oncology 01/22/23 Glenna Granados, WEIGHT LOSS SALES CONSULTANT [address] [place] [address] Nurse Practitioner Medical Oncology 03/12/23 08/14/24 Ibis Wilson RN [address] [place] [phone] [email or web address] Primary Infusion Nurse 08/14/23 Luisa Vega [address] [place] [phone] Music Therapist 07/25/24 Moni Argueta RN [address] [place] [phone] [email or web address] Nurse Navigator 08/15/24 documented as of this encounter Additional Source Comments The information contained in this document represents components of the legal health record. It is not the complete legal health record.[facility]
--- OUTSIDE RECORDS SUMMARY | 2025-02-18 17:19 | XMS_ITS | Encounter Summary ---
Author Organization [facility] Address [address] [place] [address] Phone Care Team Providers Care Financial Planning Adviser Name Role Phone Soco Alexis FACILITY OPERATIONS MANAGER Primary Care Provider [phone] Soco Alexis FACILITY OPERATIONS MANAGER Unavailable [phone] Paolo Collazo MD Unavailable [phone] Rachana Otto MD Primary Care Provider [phone] Paco Jean MD, MPH Unavailable + [phone] Guru Glynn MD Unavailable Soco Alexis FACILITY OPERATIONS MANAGER Primary Care Provider +[phone] Keily Maldonado FENCE INSTALLER HELPER Unavailable Cassi Carpenter-C Unavailable pnugebelén Azra South RN Unavailable Nico Patel MD Unavailable Paco Jean MD, MPH Unavailable + [phone] Ro HardinW Unavailable [email or web address] Myranda Lloyd Unavailable [email or web address] Stuart Saunders MD Unavailable [phone] Glenna Granados WASTEWATER PLANT CIVIL ENGINEER Unavailable [phone] Rachana Otto MD Primary Care Provider Rachana Otto MD Primary Care Provider + [phone] Ibis Wilson RN Unavailable Luisa Vega Unavailable [phone] Moni Argueta RN Unavailable [phone] Pcp, Unknown Primary Care Provider UnavailSoco Hodge NP Primary Care Provider [phone] Encounter Details Date Type Department Care Team (Late st Contact Info) Description 03/03/2017 Ancillary Orders [facility] Pulmonary, Allergy and Critical Care Medicine 30 [place] [address] Andrea Jackson MD, MS 10 [facility] 2nd [place] [address] [email or web address] Social History Tobacco Use Types Packs/Day Years [...] st Contact Info) Description 02/17/2025 Procedure Pass [facility], [facility] 30 [place] [address] 03/16/2025 8:00 AM EST Telemedicine [facility] FOR B[facility] MARROW TRANSPLANT 32 [facility], 9th Floor, [address] [place] [address] Krysta Villagomez FNP 32 [facility] 9YAW 9 [place] [address] [email or web address] 10/19/2025 12:30 PM EDT Appointment [facility] 30 [place] [address] Soco Alexis, FACILITY OPERATIONS MANAGER 230 [place] [address] documented as of this encounter Visit Diagnoses [...] documented as of this encounter Care Teams Financial Planning Adviser Relationship Specialty Start Date End Date Soco Alexis FACILITY OPERATIONS MANAGER PCP - General Family Medicine 03/02/17 02/24/20 Rachana Otto MD [address] [place] [address] [email or web address] PCP - General Family Medicine 02/25/20 01/25/22 Soco Alexis FACILITY OPERATIONS MANAGER PCP - General Family Medicine 01/26/22 03/13/23 Rachana Otto MD 30 [place] [address] [email or web address] PCP - General Family Medicine 03/14/23 05/30/23 Rachana Otto MD [address] [place] [address] [phone] [email or web address] PCP - General Family Medicine 05/31/23 10/20/24 Pcp, Unknown PCP - General 11/11/24 12/01/24 Soco Alexis FACILITY OPERATIONS MANAGER [address] [place] [address] PCP - General Nurse Practitioner 12/02/24 Soco Alexis NP 03/02/17 12/01/24 Paolo Collazo MD [address] [place] [address] [email or web address] Insurance Assigned Provider 06/06/19 08/13/19 Paco Jean MD, MPH [address] [place] [address] [email or web address] Insurance Assigned Provider 03/12/22 07/15/22 Guru Glynn MD [address] [place] [address] [address] [place] [address] [email or web address] Primary Oncologist Medical Oncology 01/24/22 05/09/23 Keily Maldonado CNP [address] [place] [address] [email or web address] Nurse Practitioner Medical Oncology 02/16/22 Cassi Carpenter PA-C 30 [place] [address] Physician Metallurgical Specialist Medical Oncology 03/22/22 08/14/24 Azra South, OLIVIA 10 [place] [address] PHCM Customer Counter Representative 05/09/22 04/08/24 Nico Patel MD [address] [place] [address] [address] [place] [address] Primary Oncologist Hematology 07/13/22 Paco Jean MD, MPH [address] [place] [address] [email or web address] Insurance Assigned Provider 09/09/22 01/13/23 Ro Hardin, ROLL TABLE OPERATOR [address] [place], [place] [email or web address] PHCM Certified Tower Climber 12/01/22 12/11/22 Myranda Lloyd [address] [place], [place] [email or web address] Community Individual Pension Adviser 01/16/23 01/17/23 Stuart Saunders MD [address] [place] [address] [email or web address] Primary Oncologist Medical Oncology 01/22/23 Glenna Granados FNP [address] [place] [address] [email or web address] Nurse Practitioner Medical Oncology 03/12/23 08/14/24 Ibis Wilson RN [address] [place] [phone] Primary Infusion Nurse 08/14/23 Luisa Vega [address] [place] [phone] Music Therapist 07/25/24 Moni Argueta, OLIVIA [address] [place] [address] [email or web address] Nurse Navigator 08/15/24 documented as of this encounter Additional Source Comments The information contained in this document represents components of the legal health record. It is not the complete legal health record.[facility]
--- OUTSIDE RECORDS SUMMARY | 2025-02-18 17:19 | XMS_ITS | Encounter Summary ---
Author Organization [facility] Address [address] [place] [address] Phone Care Team Providers Care Second Baller Name Role Phone Soco Alexis SCUDDING INSPECTOR Unavailable [phone] Erica Keily BOX LOADER Unavailable Cassi CarpenterC Unavailable dylan Azra South RN Unavailable Nico Patel MD Unavailable Stuart Saunders MD Unavailable [phone] Glenna Granados PREP COOK Unavailable Rachana Otto MD Primary Care Provider Ibis Wilson RN Unavailable Luisa Vega Unavailable Moni Argueta RN Unavailable [phone] Pcp, Unknown Primary Care Provider Unavailabl Soco Osullivan SCUDDING INSPECTOR Primary Care Provider [phone] Encounter Details Date Type Department Care Team (Late st Contact Info) Description 06/10/2023 Procedure Pass [facility], Lunder 6 [address] [facility], 6th [place] [address] Social History Tobacco Use Types Packs/Day Years [...] Score (Lifetime/Recent) Answer Date of Assessment Author Moderate Risk 06/10/2023 6:00 PM Wendy Baker RN * [place] Suicide Severity Rating Scale (Screener/Recent Self-Report) Question Answer Date of Assessment Author 1. Wish to be (Past 1 Month) No 06/10/2023 6:00 PM Enriqueta Baker RN 2. Non-Specific Active Suicidal Thoughts (Past 1 Month) No 06/10/2023 6:00 PM Enriqueta Baker RN 6. Suicidal Behavior (Lifetime) Yes 06/10/2023 6:00 PM Enriqueta Baker RN 6. Suicidal Behavior (3 Months) No 06/10/2023 6:00 PM EST ParkerEnriqueta Radhames hernandez RN documented as of this encounter Plan of Treatment Upcoming Encounters Date Type Department Care Team (Late st Contact Info) Description 02/17/2025 Procedure Pass [address] [address] 03/16/2025 8:00 AM EST Telemedicine [facility]ENTER FOR BONE MARROW TRANSPLANT 32 [facility], 9th Floor, [address] [place] [address] Krysta Villagomez FNP 32 [facility] 9YAW 9 [place] [address] [email or web address] 10/19/2025 12:30 PM EDT Appointment [address] [address] Soco Alexis SCUDDING INSPECTOR 230 [place] [address] documented as of this encounter Visit Diagnoses [...] documented as of this encounter Care Teams Second Baller Relationship Specialty Start Date End Date Rachana Otto MD [address] [place] [address] [place] [phone] [email or web address] PCP - General Family Medicine 05/31/23 10/20/24 Pcp, Unknown PCP - General 11/11/24 12/01/24 Soco Alexis SCUDDING INSPECTOR [address] [place] [address] [phone] PCP - General Nurse Practitioner 12/02/24 Soco Alexis SCUDDING INSPECTOR 03/02/17 12/01/24 Keily Maldonado CNP [address] [place] [address] [email or web address] Nurse Practitioner Medical Oncology 02/16/22 Cassi Carpenter PA-C [address] [place] [address] [email or web address] Physician Beauty Parlor Cleaner Medical Oncology 03/22/22 08/14/24 Azra South RN [address] [place] [address] [email or web address] PHC Cad Drafter 05/09/22 04/08/24 Nico Patel MD [address] [place] [address] [email or web address] Primary Oncologist Hematology 07/13/22 Stuart Saunders MD [address] [place] [address] Primary Oncologist Medical Oncology 01/22/23 Glenna Granados FNP [address] [place] [address] Nurse Practitioner Medical Oncology 03/12/23 08/14/24 Ibis Wilson, OLIVIA [address] [place] [phone] [email or web address] Primary Infusion Nurse 08/14/23 Luisa Vega 100 [place] [phone] Music Therapist 07/25/24 Moni Argueta RN 30 [place] [address] [email or web address] Nurse Navigator 08/15/24 documented as of this encounter Additional Source Comments The information contained in this document represents components of the legal health record. It is not the complete legal health record.[facility]
--- OUTSIDE RECORDS SUMMARY | 2025-02-18 17:19 | XMS_ITS | Encounter Summary ---
Author Organization [facility] Address [address] [place] [address] Phone Care Team Providers Care Case Mgr Name Role Phone Soco Alexis MUNICIPAL ENGINEER Unavailable [phone] Erica Keily POWER PLANT MECHANIC Unavailable Cassi CarpenterC Unavailable [email or web address] Azra South RN Unavailable Nico Patel MD Unavailable Stuart Saunders MD Unavailable [phone] Glenna Granados CLIENT ONBOARDING ANALYST Unavailable [phone] Rachana Otto MD Primary Care Provider Ibis Wilson RN Unavailable Luisa Vega Unavailable Moni Argueta RN Unavailable Pcp, Unknown Primary Care Provider Unavailabl Soco Osullivan MUNICIPAL ENGINEER Primary Care Provider [phone] Encounter Details Date Type Department Care Team (Late st Contact Info) Description 06/06/2023 Procedure Pass [facility] US [address] [place] [address] Social History Tobacco Use Types Packs/Day Years [...] Info) Description 02/17/2025 Procedure Pass [facility] [address] [place] [address] 03/16/2025 8:00 AM EST Telemedicine [facility]ARROW TRANSPLANT 32 [facility], 9th Floor, [address] [place] [address] Krysta Villagomez FNP 32 [facility] 9YAW 9 [place] [address] 10/19/2025 12:30 PM EDT Appointment [facility] [address] [place] [address] Soco Alexis, MUNICIPAL ENGINEER 230 [place] [address] documented as of this encounter Visit Diagnoses Not on filedocumented in this encounter Additional Health Concerns Infection Onset Date Last Indicated Resolved Time C. diff 05/24/2023 05/24/2023 06/23/2023 1:21 AM EST CoV-Risk Comment:Per note documentation 06/06/2023 06/06/2023 12:50 [...] documented as of this encounter Care Teams Case Mgr Relationship Specialty Start Date End Date Rachana Otto MD [address] [place] [address] [place] [phone] [email or web address] PCP - General Family Medicine 05/31/23 10/20/24 Pcp, Unknown PCP - General 11/11/24 12/01/24 Soco Alexis NP [address] [place] [address] PCP - General Nurse Practitioner 12/02/24 Soco Alexis NP 03/02/17 12/01/24 Keily Maldonado CNP [address] [place] [address] Nurse Practitioner Medical Oncology 02/16/22 Cassi Carpenter PA-C [address] [place] [address] Physician Wash Tank Tender Medical Oncology 03/22/22 08/14/24 Azra South, OLIVIA 10 [place] [address] [facility] Professor Of Environmental Science 05/09/22 04/08/24 Nico Patel MD [address] [place] [address] [address] [address] Primary Oncologist Hematology 07/13/22 Stuart Saunders MD 30 [place] [address] Primary Oncologist Medical Oncology 01/22/23 Glenna Granados FNP 30 [place] [address] Nurse Practitioner Medical Oncology 03/12/23 08/14/24 Ibis Wilson RN [address] [place] [phone] Primary Infusion Nurse 08/14/23 Luisa Vega 100 [place] [phone] Music Therapist 07/25/24 Moni Argueta, OLIVIA 30 [place] [address] Nurse Navigator 08/15/24 documented as of this encounter Additional Source Comments The information contained in this document represents components of the legal health record. It is not the complete legal health record.[facility]
--- OUTSIDE RECORDS SUMMARY | 2025-02-18 17:19 | XMS_ITS | Encounter Summary ---
Author Organization [facility] Address [address] [place] [address] Phone Care Team Providers Care Medical Chemist Name Role Phone Soco Alexis CYBER SECURITY ANALYST Unavailable [phone] Paco Jean MD, MPH Unavailable [phone] Guru Glynn MD Unavailable Soco Alxeis CYBER SECURITY ANALYST Primary Care Provider Keily Maldonado SENIOR BI DEVELOPER Unavailable Cassi CarpenterC Unavailable dylan Azra South RN Unavailable Nico Patel MD Unavailable Paco Jean MD, MPH Unavailable [phone] Ro HardinW Unavailable abdirashid Myranda Lloyd Unavailable [email or web address] Stuart Sanuders MD Unavailable [phone] Glenna Granados ACTING INSTRUCTOR Unavailable [phone] Rachana Otto MD Primary Care Provider Rachana Otto MD Primary Care Provider [phone] Ibis Wilson RN Unavailable Luisa Vega Unavailable [phone] Moni Argueta RN Unavailable [phone] Pcp, Unknown Primary Care Provider UnavailSooc Hodge NP Primary Care Provider [phone] Encounter Details Date Type Department Care Team (Late st Contact Info) Description 06/22/2022 Procedure Pass [facility] Imaging - RF/IR 55 [facility], 2nd [place] [address] Social History Tobacco Use Types Packs/Day Years [...] 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 file documented as of this encounter Plan of Treatment Upcoming Encounters Date Type Department Care Team (Late st Contact Info) Description 02/17/2025 Procedure Pass [address] [place] [address] [address] 03/16/2025 8:00 AM EST Telemedicine [facility] C[facility] FOR BONE MARROW TRANSPLANT 32 [facility], 9th Floor, [address] [place] [address] Krysta Villagomez FNP 32 [facility] 9YAW 9 [place] [address] [email or web address] 10/19/2025 12:30 PM EDT Appointment [address] [place] [address] Soco Alexis, CYBER SECURITY ANALYST 230 [place] [address] documented as of this encounter Visit Diagnoses [...] documented as of this encounter Care Teams Medical Chemist Relationship Specialty Start Date End Date Soco Alexis CYBER SECURITY ANALYST PCP - General Family Medicine 01/26/22 03/13/23 Rachana Otto MD 30 [place] [address] [email or web address] PCP - General Family Medicine 03/14/23 05/30/23 Rachana Otto MD [address] [place] [address] [place] [address] [email or web address] PCP - General Family Medicine 05/31/23 10/20/24 Pcp, Unknown PCP - General 11/11/24 12/01/24 Soco Alexis NP [address] [place] [address] PCP - General Nurse Practitioner 12/02/24 Soco Alexis NP 03/02/17 12/01/24 Paco Jean MD, MPH [address] [place] [address] [email or web address] Insurance Assigned Provider 03/12/22 07/15/22 Guru Glynn MD [address] [place] [address] [address] [address] [email or web address] Primary Oncologist Medical Oncology 01/24/22 05/09/23 Keily Maldonado CNP 30 [place] [address] [email or web address] Nurse Practitioner Medical Oncology 02/16/22 Cassi Carpenter PA-C 30 [place] [address] [email or web address] Physician Clin Nurse Medical Oncology 03/22/22 08/14/24 Azra South, RN [address] [place] [address] [email or web address] PHCM Control Equipment Electrician 05/09/22 04/08/24 Nico Patel MD 55 [facility] 9[place] [address] [email or web address] Primary Oncologist Hematology 07/13/22 Paco Jean MD, MPH 70 [place] [address] [email or web address] Insurance Assigned Provider 09/09/22 01/13/23 Ro Hardin LCSW 10 [place], [place] [email or web address] Micromatic Hone Operator 12/01/22 12/11/22 Myranda Lloyd [address] [place] [address] [email or web address] 01/16/23 01/17/23 Stuart Saunders MD 30 [place] [address] [email or web address] Primary Oncologist Medical Oncology 01/22/23 Glenna Granados, ACTING INSTRUCTOR 30 [place] [address] [email or web address] Nurse Practitioner Medical Oncology 03/12/23 08/14/24 Ibis Wilson, RN [address] [place] [phone] [email or web address] Primary Infusion Nurse 08/14/23 Luisa Vega [address] [place] [phone] Music Therapist 07/25/24 Moni Argueta RN [address] [place] [address] [email or web address] Nurse Navigator 08/15/24 documented as of this encounter Additional Source Comments The information contained in this document represents components of the legal health record. It is not the complete legal health record.[facility]
--- OUTSIDE RECORDS SUMMARY | 2025-02-18 17:19 | XMS_ITS | Encounter Summary ---
Author Organization [facility] Address [address] [place] [address] Phone Care Team Providers Care Ward Aide Name Role Phone Soco Alexis COMB FIXER Primary Care Provider [phone] Soco Alexis COMB FIXER Unavailable [phone] Paolo Collazo MD Unavailable [phone] Rachana Otto MD Primary Care Provider [phone] Paco Jean MD, MPH Unavailable + [phone] Guru Glynn MD Unavailable [phone] Soco Alexis COMB FIXER Primary Care Provider [phone] Keily Maldonado SILK BLOCKER Unavailable Cassi Carpenter-C Unavailable pnugebelén Azra South RN Unavailable Nico Patel MD Unavailable [phone] Paco Jean MD, MPH Unavailable + [phone] Ro HardinW Unavailable [email or web address] Myranda Lloyd Unavailable [email or web address] Stuart Saunders MD Unavailable [phone] Glenna Granados MAINTENANCE TRUCK DRIVER Unavailable [phone] Rachana Otto MD Primary Care Provider Rachana Otto MD Primary Care Provider Ibis Wilson RN Unavailable Luisa Vega Unavailable [phone] Moni Argueta RN Unavailable [phone] Pcp, Unknown Primary Care Provider UnavailSoco Hodge NP Primary Care Provider [phone] Encounter Details Date Type Department Care Team (Late st Contact Info) Description 03/03/2017 Transcribe Orders [facility] Department 30 [place] [address] Andrea Jackson MD, MS 10 [facility] 2nd [place] [address] [email or web address] Social History Tobacco Use Types Packs/Day Years [...] (Late Contact Info) Description 02/17/2025 Procedure Pass [facility], [facility] 30 [place] [address] 03/16/2025 8:00 AM EST Telemedicine [facility] FOR BONE MARROW TRANSPLANT [address] [place] [address], 9th Floor, [address] [place] [address] Krysta Villagomez FNP 32 [facility] 9YAW 9 [place] [address] [email or web address] 10/19/2025 12:30 PM EDT Appointment [facility] 30 [place] [address] Soco Alexis, COMB FIXER 230 [place] [address] documented as of this encounter Visit Diagnoses [...] documented as of this encounter Care Teams Ward Aide Relationship Specialty Start Date End Date Soco Alexis COMB FIXER PCP - General Family Medicine 03/02/17 02/24/20 Rachana Otto MD [address] [place] [address] [email or web address] PCP - General Family Medicine 02/25/20 01/25/22 Soco Alexis COMB FIXER PCP - General Family Medicine 01/26/22 03/13/23 Rachana Otto MD 30 [place] [address] [email or web address] PCP - General Family Medicine 03/14/23 05/30/23 Rachana Otto MD [address] [place] [address] [place] [phone] [email or web address] PCP - General Family Medicine 05/31/23 10/20/24 Pcp, Unknown PCP - General 11/11/24 12/01/24 Soco Alexis, COMB FIXER [address] [place] [address] PCP - General Nurse Practitioner 12/02/24 Soco Alexis COMB FIXER 03/02/17 12/01/24 Paolo Collazo MD 70 [place] [address] Insurance Assigned Provider 06/06/19 08/13/19 Paco Jean MD, MPH 70 [place] [address] [email or web address] Insurance Assigned Provider 03/12/22 07/15/22 Guru Glynn MD [address] [place] [address] [address] [place] [address] [email or web address] Primary Oncologist Medical Oncology 01/24/22 05/09/23 Keily Maldonado CNP 30 [place] [address] [email or web address] Nurse Practitioner Medical Oncology 02/16/22 Cassi Carpenter PA-C 30 [place] [address] [email or web address] Physician Tarp Repairer Medical Oncology 03/22/22 08/14/24 Azra South RN 10 [place] [address] PHCM Investigative Shopper 05/09/22 04/08/24 Nico Patel MD [address] [place] [address] 9[place], [place] [address] Primary Oncologist Hematology 07/13/22 Paco Jean MD, MPH 70 [place] [address] Insurance Assigned Provider 09/09/22 01/13/23 Ro Hardin, RN [place] LVN 10 [place], [place] [email or web address] PHCM Paymaster Of Purses 12/01/22 12/11/22 Myranda Lloyd 10 [place], [place] [email or web address] PHC Community Meat Manager 01/16/23 01/17/23 Stuart Saunders MD 30 [place] [address] [email or web address] Primary Oncologist Medical Oncology 01/22/23 Glenna Granados, MAINTENANCE TRUCK DRIVER [address] [place] [address] Nurse Practitioner Medical Oncology 03/12/23 08/14/24 Ibis Wilson RN [address] [place] [phone] Primary Infusion Nurse 08/14/23 Luisa Vega [address] [place] [phone] Music Therapist 07/25/24 Moni Argueta RN [address] [place] [address] [phone] [email or web address] Nurse Navigator 08/15/24 documented as of this encounter Additional Source Comments The information contained in this document represents components of the legal health record. It is not the complete legal health record.[facility]
--- OUTSIDE RECORDS SUMMARY | 2025-02-18 17:19 | XMS_ITS | Encounter Summary ---
Author Organization [facility] Address [address] [place] [address] Phone Care Team Providers Care Software Support Analyst Name Role Phone Soco Alexis INTERVENTIONAL PAIN PHYSICIAN Primary Care Provider [phone] Soco Alexis INTERVENTIONAL PAIN PHYSICIAN Unavailable [phone] Paolo Collazo MD Unavailable [phone] Rachana Otto MD Primary Care Provider [phone] Paco Jean MD, MPH Unavailable + [phone] Guru Glynn MD Unavailable Soco Alexis INTERVENTIONAL PAIN PHYSICIAN Primary Care Provider +[phone] Keily Maldonado DRAWER IN STITCH BONDING MACHINE Unavailable Cassi Carpenter-C Unavailable pnugebelén Azra South RN Unavailable Nico Patel MD Unavailable Paco Jean MD, MPH Unavailable + [phone] Ro HardinW Unavailable [email or web address] Myranda Lloyd Unavailable [email or web address] Stuart Saunders MD Unavailable [phone] Glenna Granados PRODUCT ENGINEER Unavailable [phone] Rachana Otto MD Primary Care Provider Rachana Otto MD Primary Care Provider + [phone] Ibis Wilson RN Unavailable Luisa Vega Unavailable [phone] Moni Argueta RN Unavailable [phone] Pcp, Unknown Primary Care Provider UnavailSoco Hodge NP Primary Care Provider [phone] Encounter Details Date Type Department Care Team (Late st Contact Info) Description 05/22/2018 Ancillary Orders Virtual Department [address] [place] [address] Man Michelle MD [address] [place] [address], [address] [place] [address] [email or web address] Sarcoidosis Social History Tobacco Use Types Packs/Day Years Used Date Smoking Tobacco: Every Day Smokeless Tobacco: Never Comments:cut back to 3 or 5 cig a day Comments Unknown Sex and Gender Information Value Date Recorded Sex Assigned at Female 06/25/2019 7:03 PM EST Legal Sex Female 9:21 PM EDT Gender Identity Female 06/25/2019 7:03 PM EST Sexual Orientation Lesbian or Espinosa 09/18/2022 1: 58 PM EDT documented as of this encounter Plan of Treatment Upcoming Encounters Date Type Department Care Team (Late Contact Info) Description 02/17/2025 Procedure Pass [facility] [address] [place] [address] 03/16/2025 8:00 AM EST Telemedicine [facility] [address] [facility], 9th Floor, [address] [place] [address] Krysta Villagomez FNP 32 [facility] [address] [place] [address] 10/19/2025 12:30 PM EDT Appointment [facility] [address] [place] [address] Soco Alexis, INTERVENTIONAL PAIN PHYSICIAN [address] [place] [address] documented as of this encounter Results * XR CHEST PA AND LATERAL 2 VIEWS (06/07/2018 9:50 AM EST) Anatomical Region Laterality Modality Chest Radiographic Bridgette ging 06/07/2018 11:1 9 AM EST Impressions 06/07/2018 11:20 AM EST No evidence of active cardiopulmonary disease. POS - [id number] Narrative 06/07/2018 11:20 AM EST HISTORY: Cough, sarcoidosis. COMPARISON: None. FINDINGS: PA and lateral views of the chest obtained. The lungs appear clear. No evidence of pleural effusions or pneumothorax. Great vessel and cardiomediastinal contours are normal. No radiographic evidence of lymphadenopathy. Procedure Note Chan Stakr MD - 06/07/2018 HISTORY: Cough, sarcoidosis. COMPARISON: None. FINDINGS: PA and lateral views of the chest obtained. The lungs appear clear. No evidence of pleural effusions or pneumothorax.Great vessel and cardiomediastinal contours are normal. No radiographicevidence of lymphadenopathy. IMPRESSION: No evidence of active cardiopulmonary disease. POS - [id number] us Man Michelle MD IMG XR CHEST Final Result documented in this encounter Visit Diagnoses Diagnosis Sarcoidosis Sarcoidosis documented in this encounter Additional Health Concerns [...] documented as of this encounter Care Teams Software Support Analyst Relationship Specialty Start Date End Date Soco Alexis NP PCP - General Family Medicine 03/02/17 02/24/20 Rachana Otto MD [address] [place] [address] [email or web address] PCP - General Family Medicine 02/25/20 01/25/22 Soco Alexis INTERVENTIONAL PAIN PHYSICIAN PCP - General Family Medicine 01/26/22 03/13/23 Rachana Otto MD [address] [place] [address] [email or web address] PCP - General Family Medicine 03/14/23 05/30/23 Rachana Otto MD [address] [place] [phone] [email or web address] PCP - General Family Medicine 05/31/23 10/20/24 Pcp, Unknown PCP - General 11/11/24 12/01/24 Soco Alexis INTERVENTIONAL PAIN PHYSICIAN [address] [place] [address] PCP - General Nurse Practitioner 12/02/24 Soco Alexis INTERVENTIONAL PAIN PHYSICIAN 03/02/17 12/01/24 Paolo Collazo MD [address] [place] [address] [email or web address] Insurance Assigned Provider 06/06/19 08/13/19 Paco Jean MD, MPH 70 [place] [address] [email or web address] Insurance Assigned Provider 03/12/22 07/15/22 Guru Glynn MD [address] [place] [address] [address] [place] [address] [email or web address] Primary Oncologist Medical Oncology 01/24/22 05/09/23 Keily Maldonado CNP 30 [place] [address] Nurse Practitioner Medical Oncology 02/16/22 Cassi Carpenter PA-C [address] [place] [address] Physician Toll Transmission Worker Medical Oncology 03/22/22 08/14/24 Azra South RN [address] [place] [address] PHCM Humidifier Operator 05/09/22 04/08/24 Nico Patel MD [address] [place] [address] [email or web address] Primary Oncologist Hematology 07/13/22 Paco Jean MD, MPH [address] [place] [address] Insurance Assigned Provider 09/09/22 01/13/23 Ro Hardin LCSW [address] [place] [address] [email or web address] PHCM Oncology Consultant 12/01/22 12/11/22 Myranda Lloyd [address] [place] [address] [email or web address] PHCM Community Building Construction Contractor 01/16/23 01/17/23 Stuart Saunders MD [address] [place] [address] Primary Oncologist Medical Oncology 01/22/23 Glenna Granados FNP [address] [place] [address] Nurse Practitioner Medical Oncology 03/12/23 08/14/24 Ibis Wilson RN [address] [place] [phone] [email or web address] Primary Infusion Nurse 08/14/23 Luisa Vega [address] [place] [phone] Music Therapist 07/25/24 Moni Argueta RN [address] [place] [address] [email or web address] Nurse Navigator 08/15/24 documented as of this encounter Additional Source Comments The information contained in this document represents components of the legal health record. It is not the complete legal health record.[facility]
--- OUTSIDE RECORDS SUMMARY | 2025-02-18 17:19 | XMS_ITS | Encounter Summary ---
Author Organization [facility] Address [address] [place] [address] Phone Care Team Providers Care Glue Size Machine Operator Name Role Phone Soco Alexis EXPLORATION DRILLER Unavailable [phone] Paco Jean MD, MPH Unavailable [phone] Guru Glynn MD Unavailable Soco Alexis EXPLORATION DRILLER Primary Care Provider Keily Maldonado GASOLINE FINISHER Unavailable Cassi CarpenterC Unavailable dylan Azra South RN Unavailable Nico Patel MD Unavailable [phone] Paco Jean MD, MPH Unavailable [phone] Ro HardinW Unavailable [email or web address] Myranda Lloyd Unavailable [email or web address] Stuart Saundesr MD Unavailable [phone] Glenna Granados INTEGRATED LOGISTICS PROGRAMS DIRECTOR Unavailable [phone] Rachana Otto MD Primary Care Provider Rachana Otto MD Primary Care Provider [phone] Ibis Wilson RN Unavailable Luisa Vega Unavailable [phone] Moni Argueta RN Unavailable [phone] Pcp, Unknown Primary Care Provider UnavailSoco Hodge NP Primary Care Provider [phone] Encounter Details Date Type Department Care Team (Late st Contact Info) Description 07/06/2022 Procedure Pass [facility], Ct Scan - [address] [address] Social History Tobacco Use Types Packs/Day Years [...] 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 Wish to be (Past 1 Month) No 07/06/2022 6:10 AM Angelina Krishna RN 2. Non-Specific Active Suicidal Thoughts (Past 1 Month) No 07/06/2022 6:10 AM Angelina Krishna RN 6. Suicidal Behavior (Lifetime) No 07/06/2022 6:10 AM Angelina Krishna RN documented as of this encounter Plan of Treatment Upcoming Encounters Date Type Department Care Team (Late st Contact Info) Description 02/17/2025 Procedure Pass [address] [address] 03/16/2025 8:00 AM EST Telemedicine [facility] 32 [facility], 9th Floor, [address] [place] [address] Krysta Villagomez FNP 32 [facility] [address] [place] [address] 10/19/2025 12:30 PM EDT Appointment [address] [address] Soco Alexis EXPLORATION DRILLER [address] [place] [address] documented as of this encounter Visit Diagnoses Not on filedocumented in this encounter Additional Health Concerns Infection Onset Date Last Indicated Resolved Time CoV-Risk 07/06/2022 07/06/2022 07/06/2022 7:02 AM EST [...] Precautions and Duration of Isolation [facility] 10/14/2024 10/14/2024 10/21/2024 1:21 AM E DT Assessment Noted Time PHQ-2 Depression Total Score: 2 05/17/19 10:19 AM EST documented as of this encounter Care Teams Glue Size Machine Operator Relationship Specialty Start Date End Date Soco Alexis EXPLORATION DRILLER PCP - General Family Medicine 01/26/22 03/13/23 Rachana Otto MD 30 [place] [address] [email or web address] PCP - General Family Medicine 03/14/23 05/30/23 Rachana Otto MD [address] [place] [address] [place] [phone] [email or web address] PCP - General Family Medicine 05/31/23 10/20/24 Pcp, Unknown PCP - General 11/11/24 12/01/24 Soco Alexis EXPLORATION DRILLER [address] [place] [address] PCP - General Nurse Practitioner 12/02/24 Soco Alexis EXPLORATION DRILLER 03/02/17 12/01/24 Paco Jean MD, MPH 70 [place] [address] [email or web address] Insurance Assigned Provider 03/12/22 07/15/22 Guru Glynn MD [address] [place], [place] [address] [address] [place] [address] [email or web address] Primary Oncologist Medical Oncology 01/24/22 05/09/23 Keily Maldonado CNP [address] [place] [address] Nurse Practitioner Medical Oncology 02/16/22 Cassi Carpenter PA-C [address] [place] [address] Physician Support Analyst Medical Oncology 03/22/22 08/14/24 Azra South RN [address] [place] [address] PHCM Termite Inspector 05/09/22 04/08/24 Nico Patel MD [address] [place] [address] [email or web address] Primary Oncologist Hematology 07/13/22 Paco eJan MD, MPH [address] [place] [address] [email or web address] Insurance Assigned Provider 09/09/22 01/13/23 Ro Hardin LCSW [address] [place] [address] [email or web address] PHCM Station Agent 12/01/22 12/11/22 Myranda Lloyd [address] [place] [address] [email or web address] PHCM Community Registered Nurse 01/16/23 01/17/23 Stuart Saunders MD [address] [place] [address] Primary Oncologist Medical Oncology 01/22/23 Glenna Granados FNP [address] [place] [address] Nurse Practitioner Medical Oncology 03/12/23 08/14/24 Ibis Wilson RN [address] [place] [phone] Primary Infusion Nurse 08/14/23 Luisa Vega [address] [place] [phone] Music Therapist 07/25/24 Moni Argueta RN [address] [place] [address] [email or web address] Nurse Navigator 08/15/24 documented as of this encounter Additional Source Comments The information contained in this document represents components of the legal health record. It is not the complete legal health record.[facility]
--- OUTSIDE RECORDS SUMMARY | 2025-02-18 17:19 | XMS_ITS | Encounter Summary ---
Author Organization [facility] Address [address] [place] [address] Phone Care Team Providers Care Occupational Therapy Assist Name Role Phone Soco Alexis LUMBER TALLIER Primary Care Provider [phone] Soco Alexis LUMBER TALLIER Unavailable [phone] Paolo Collazo MD Unavailable [phone] Rachana Otto MD Primary Care Provider [phone] Paco Jean MD, MPH Unavailable + [phone] Guru Glynn MD Unavailable [phone] Soco Alexis LUMBER TALLIER Primary Care Provider +[phone] Keily Maldonado DENTAL INTERN Unavailable Cassi Carpenter-C Unavailable pnugebelén Azra South RN Unavailable Nico Patel MD Unavailable Paco Jean MD, MPH Unavailable + [phone] Ro HardinW Unavailable [email or web address] Myranda Lloyd Unavailable [email or web address] Stuart Saunders MD Unavailable [phone] Glenna Granados APPLICATION SUPPORT ENGINEER Unavailable [phone] Rachana Otto MD Primary Care Provider [phone] Rachana Otto MD Primary Care Provider [phone] Ibis Wilson RN Unavailable Luisa Vega Unavailable [phone] Moni Argueta RN Unavailable [phone] Pcp, Unknown Primary Care Provider UnavailSoco Hodge NP Primary Care Provider [phone] Encounter Details Date Type Department Care Team (Latest Contact Info) Description 06/19/2018 Transcribe Orders [facility] [address] [place] [address] Man Michelle MD [address] [place] [address], [address] [place] [address] [email or web address] Sarcoidosis, unspecified (Primary Dx) Social History Tobacco Use Types [...] st Contact Info) Description 02/17/2025 Procedure Pass [facility] [address] [place] [address] 03/16/2025 8:00 AM EST Telemedicine [facility] FOR [facility]ARROW TR[facility] 32 [facility], 9th Floor, [address] [place] [address] Krysta Villagomez, GLORY 32 [facility] [address] [place] [address] 10/19/2025 12:30 PM EDT Appointment [facility] [address] [place] [address] Soco Alexis, LUMBER TALLIER [address] [place] [address] documented as of this encounter Results * Pulmonary Function Test Reason for Exam: Sarcoidosis; Type of PFT Test: Spirometry with bronchodilator, Spirometry while seated and supine, Lung Volumes, DLCO; Performing Location: [facility] (06/21/2018 6:59 AM EST) Anatomical Region Laterality Modality Other Narrative Procedure Note Man Michelle MD - 06/21/2018 6:59 AM EST REFERRING PHYSICIAN: Man Michelle M.D. SPIROMETRY: In the prebronchodilator study, spirometric values are normal. In the postbronchodilator study, there is an 11% improvement in FEF 25/75. Other values are unchanged. The flow volume loop demonstrates a normal inspiratory limb. LUNG VOLUMES: TLC is normal. RV is marginally reduced at 78% of predicted. RV/TLC is reduced at 25%. DIFFUSING CAPACITY: DLCO was normal. ARTERIAL BLOOD GASES: SaO2 is normal at 99%. IMPRESSION: Essentially normal PFTs. There was minimal degree of small airways reactivity which is nonspecific. The reduction in residual volume is consistent with patient obesity. Man Michelle M.D. Dictator/Robin: [id number] Date/Time Date/Time Modified Date: 06/28/2018 04:24:36 [id number] This report has not been authenticated by the dictating clinician unless signature appears above, or an electronic signature statement appears below this line. CC: GLORY Elias us Man Michelle MD PFT ORDERABLES Final Result documented in this encounter Visit Diagnoses Diagnosis Sarcoidosis, unspecified- Primary Sarcoidosis, unspecified documented in this encounter Additional Health [...] documented as of this encounter Care Teams Occupational Therapy Assist Relationship Specialty Start Date End Date Soco Alexis NP PCP - General Family Medicine 03/02/17 02/24/20 Rachana Otto MD [address] [place] [address] [email or web address] PCP - General Family Medicine 02/25/20 01/25/22 Soco Alexis NP PCP - General Family Medicine 01/26/22 03/13/23 Rachana Otto MD [address] [place] [address] [email or web address] PCP - General Family Medicine 03/14/23 05/30/23 Rachana Otto MD [address] [place] [phone] [email or web address] PCP - General Family Medicine 05/31/23 10/20/24 Pcp, Unknown PCP - General 11/11/24 12/01/24 Soco Alexis LUMBER TALLIER [address] [place] [address] PCP - General Nurse Practitioner 12/02/24 Soco Alexis LUMBER TALLIER 03/02/17 12/01/24 Paolo Collazo MD [address] [place] [address] [email or web address] Insurance Assigned Provider 06/06/19 08/13/19 Paco Jean MD, MPH [address] [place] [address] [email or web address] Insurance Assigned Provider 03/12/22 07/15/22 Guru Glynn MD [address] [place] [address] [address] [place] [address] [email or web address] Primary Oncologist Medical Oncology 01/24/22 05/09/23 Keily Maldonado CNP [address] [place] [address] [email or web address] Nurse Practitioner Medical Oncology 02/16/22 Cassi Carpenter PA-C [address] [place] [address] [email or web address] Physician Log [employer] Medical Oncology 03/22/22 08/14/24 Azra South, OLIVIA [address] [place] [address] [email or web address] PHCM Panel Saw Operator 05/09/22 04/08/24 Nico Patel MD [address] [place] [address] [address] [place] [address] [email or web address] Primary Oncologist Hematology 07/13/22 Paco Jean MD, MPH [address] [place] [address] [email or web address] Insurance Assigned Provider 09/09/22 01/13/23 Ro Hardin, ARTIST MODEL [address] [place], [place] PHCM Office Auditor 12/01/22 12/11/22 Myranda Lloyd [address] [place] [address] [email or web address] PHCM Community Civil Manager 01/16/23 01/17/23 Stuart Saunders MD [address] [place] [address] Primary Oncologist Medical Oncology 01/22/23 Glenna Granados FNP [address] [place] [address] Nurse Practitioner Medical Oncology 03/12/23 08/14/24 Ibis Wilson RN [address] [place] [phone] Primary Infusion Nurse 08/14/23 Luisa Vega [address] [place] [phone] Music Therapist 07/25/24 Moni Argueta RN [address] [place] [phone] [email or web address] Nurse Navigator 08/15/24 documented as of this encounter Additional Source Comments The information contained in this document represents components of the legal health record. It is not the complete legal health record.[facility]
--- OUTSIDE RECORDS SUMMARY | 2025-02-18 17:19 | XMS_ITS | Encounter Summary ---
Author Organization [facility] Address [address] [place] [address] Phone Care Team Providers Care Director Consumer Affairs Name Role Phone Soco Alexis FORGE OPERATOR Unavailable [phone] Rachana Otto MD Primary Care Provider [phone] Paco Jean MD, MPH Unavailable [phone] Guru Glynn MD Unavailable Soco Alexis FORGE OPERATOR Primary Care Provider Keily Maldonado PRODUCTION CONTROL CLERK Unavailable Cassi CarpenterC Unavailable pnkristel Azra South RN Unavailable Nico Patel MD Unavailable [phone] Paco Jean MD, MPH Unavailable [phone] Ro HardinW Unavailable [email or web address] Myranda Lloyd Unavailable [email or web address] Stuart Saunders MD Unavailable [phone] Granados, Glenna B SCREEN CLEANER Unavailable [phone] aRchana Otto MD Primary Care Provider [phone] Rachana Otto MD Primary Care Provider [phone] Ibis Wilson RN Unavailable MelinaLuisa tomlinsonan Unavailable [phone] Moni Argueta RN Unavailable [phone] Pcp, Unknown Primary Care Provider UnavailSoco Hodge NP Primary Care Provider [phone] Encounter Details Date Type Department Care Team (Late st Contact Info) Description 05/03/2020 Procedure Pass [facility] Ct Scan [address] [address] Social History Tobacco Use Types Packs/Day Years Used Date Smoking Tobacco: Former Cigarettes 1 992 - 04/14/2020 Smokeless Tobacco: Never Alcohol Use Standard Drinks/Week Comments Yes 0 [...] st Contact Info) Description 02/17/2025 Procedure Pass [address] [address] 03/16/2025 8:00 AM EST Telemedicine [facility] [address] [place] [address], [address], [address] [place] [address] Krysta Villagomez, [facility] [address] [facility] [address] [place] [address] [email or web address] 10/19/2025 12:30 PM EDT Appointment [address] [place] [address] Soco Alexis, FORGE OPERATOR [address] [place] [address] documented as of this encounter Visit Diagnoses Not on filedocumented in this encounter Additional Health Concerns Infection Onset Date Last Indicated Resolved Time CoV-Risk 08/24/2021 08/24/2021 09/04/2021 1:22 AM EDT [...] Comment:Neg covid 09/18/2022 09/18/2022 09/19/2022 7:06 AM EDT C. diff 12/25/2022 12/25/2022 01/24/2023 1:21 AM [...] Precautions and Duration of Isolation policy in [place] for details 10/14/2024 10/14/2024 10/21/2024 1:21 AM E DT documented as of this encounter Care Teams Director Consumer Affairs Relationship Specialty Start Date End Date Rachana Otto MD [email or web address] PCP - General Family Medicine 02/25/20 01/25/22 Soco Alexis FORGE OPERATOR PCP - General Family Medicine 01/26/22 03/13/23 Rachana Otto MD [address] [place] [address] [email or web address] PCP - General Family Medicine 03/14/23 05/30/23 Rachana Otto MD [address] [place] [phone] [email or web address] PCP - General Family Medicine 05/31/23 10/20/24 Pcp, Unknown PCP - General 11/11/24 12/01/24 Soco Alexis FORGE OPERATOR [address] [place] [address] PCP - General Nurse Practitioner 12/02/24 Soco Alexis FORGE OPERATOR 03/02/17 12/01/24 Paco Jean MD, MPH [address] [place] [address] [email or web address] Insurance Assigned Provider 03/12/22 07/15/22 uGru Glynn MD [address] [place], [place] [address] [address] [place] [address] [email or web address] Primary Oncologist Medical Oncology 01/24/22 05/09/23 Keily Maldonado CNP [address] [place] [address] [email or web address] Nurse Practitioner Medical Oncology 02/16/22 Cassi Carpenter PA-C [address] [place] [phone] [email or web address] Physician City Dispatch Supervisor Medical Oncology 03/22/22 08/14/24 Azra South RN [address] [place] [phone] [email or web address] PHCM Bar Helper 05/09/22 04/08/24 Nico Patel MD [address] [place] [phone] [email or web address] Primary Oncologist Hematology 07/13/22 Paco Jean MD, MPH [address] [place] [address] [email or web address] Insurance Assigned Provider 09/09/22 01/13/23 Ro Hardin LCSW [address] [place] [address] [email or web address] PHCM Forging Operator 12/01/22 12/11/22 Myranda Lloyd [address] [place] [address] [email or web address] PHCM Community Pharmacy Technician Trainee 01/16/23 01/17/23 Stuart Saunders MD [address] [place] [phone] Primary Oncologist Medical Oncology 01/22/23 Glenna Granados, GLORY [address] [place] [address] Nurse Practitioner Medical Oncology 03/12/23 08/14/24 Ibis Wilson RN [address] [place] [phone] [email or web address] Primary Infusion Nurse 08/14/23 Luisa Vega [address] [place] [phone] Music Therapist 07/25/24 Moni Argueta RN [address] [place] [phone] [email or web address] Nurse Navigator 08/15/24 documented as of this encounter Additional Source Comments The information contained in this document represents components of the legal health record. It is not the complete legal health record.[facility]
--- OUTSIDE RECORDS SUMMARY | 2025-02-18 17:19 | XMS_ITS | Encounter Summary ---
Author Organization [facility] Address [address] [place] [id number] Phone Care Team Providers Care Chemical Inspector Name Role Phone Soco Alexis MICROFILM TECHNICIAN Unavailable [phone] Paco Jean MD, MPH Unavailable [phone] Guru Glynn MD Unavailable Soco Alexis MICROFILM TECHNICIAN Primary Care Provider Keily Maldonado MANAGER OF CREATIVE SERVICES Unavailable Cassi CarpenterC Unavailable dylan Azra South RN Unavailable Nico Patel MD Unavailable [phone] Paco Jean MD, MPH Unavailable [phone] Ro HardinW Unavailable [email or web address] Myranda Lloyd Unavailable [email or web address] Stuart Saunders MD Unavailable [phone] Glenna Granados CHIEF AIRPORT GUIDE Unavailable [phone] Rachana Otto MD Primary Care Provider Rachana Otto MD Primary Care Provider [phone] Ibis Wilson RN Unavailable Gary Luisasanya Mcclendon Unavailable [phone] Moni Argueta RN Unavailable [phone] Pcp, Unknown Primary Care Provider UnavailSoco Hodge NP Primary Care Provider [phone] Reason for Referral * Outpatient Procedure - Closed Specialty Diagnoses / Procedures Referred By Mike quesada Referred To Contact Diagnoses Encounter for other preprocedural examination Procedures Adult Echo TTE Nico Patel MD Phone: tel: fax: [email or web address] Referral ID Status Reason Start Date Expiration Date Visits Re quested Visits Authorized [id number] Closed 06/19/2022 06/19/2023 1 1 Encounter Details Date Type Department Care Team (Late st Contact Info) Description 06/19/2022 Documentation [facility] [address] [facility], 9th Floor, [address] [place] [address] Nico Patel MD [address] [facility] [address] [place] [address] [email or web address] Social [...] st Contact Info) Description 02/17/2025 Procedure Pass [address] [address] 03/16/2025 8:00 AM EST Telemedicine [facility] [address] [facility], 9th Floor, [address] [place] [address] Krysta Villagomez FNP 32 [facility] [address] [place] [address] [email or web address] 10/19/2025 12:30 PM EDT Appointment [address] [address] Soco Alexis, MICROFILM TECHNICIAN [address] [place] [address] Pending Results Name Type Priority Associated Diagnoses Date /Time Miscellaneous lab test 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 2:50 PM EDT documented as of this encounter Results * ECG 12-LEAD (08/15/2022 4:34 PM EDT) Systolic Blood Pressure [facility] Diastolic Blood Pressure [facility] Ventricular Rate EKG/MIN 88 BPM [facility] Atrial Rate 88 BPM [facility] [place] Interval 128 ms [facility] QRS Duration 80 ms [facility] QT Interval 392 ms [facility] QTC Interval 474 ms [facility] P [place] 9 degrees [facility] R Wave [place] 25 degrees [facility] T Wave [place] 12 degrees [facility] 08/15/2022 4:34 PM EDT 08/29/2022 9:18 PM EDT Narrative [facility] - 08/29/2022 9:18 PM EDT LOC: [id number] DX: PRE-OP EXAM REF: NICO WINNFEE NORMAL SINUS RHYTHM MINOR NONSPECIFIC ST SEGMENT AND T WAVE ABNORMALITIES NO PREVIOUS ECGS AVAILABLE Nico Patel MD ECG ORDERABLES Final Result [facility] * T spot TB test (08/15/2022 2:50 PM EDT) Pathologist [facility] T-SPOT.TB Negative Negative [facility] Comment: (NOTE) A negative test result does not exclude the possibility of exposure to or infection with Mycobacterium tuberculosis (M. tuberculosis). Patients with recent exposure to TB infected individuals exhibiting a negative T-SPOT.TB result should be considered for retesting within 6 weeks or if other relevant clinical symptoms indicate. Results from T-SPOT.TB testing must be used in conjunction with each individual's epidemiological history, current medical status, and results of other diagnostic evaluations. The T-SPOT.TB test is qualitative and results are reported as positive, borderline, or negative, given that the test controls perform as expected. In line with the Centers for Disease Control and Prevention's 2010 recommendation to report quantitative measurements alongside the qualitative result, the laboratory provides spot counts for informational purposes only. The T-SPOT.TB test should not be interpreted as a quantitative test. Panel A Spot Count Corrected For Neg Control 0 [employer] Panel B Spot Count Corrected For Neg Control 1 [employer] Negative Control Passed [facility] Positive Control Passed [facility] Comment: (NOTE) For additional information, please refer to http://education.[employer] Systems.Piqora/faq/KWF787 (This link is being provided for informational/ educational purposes only.) 08/15/2022 2:50 PM EDT 08/15/2022 4:34 PM EDT us Nico Patel MD LAB BLOOD ORDERABLES F inal Result Performing Organization Address City/[facility]/ZIP Co de Phone Number [employer] [address] [place], [place] * (ABNORMAL) LDH (08/15/2022 2:50 PM EDT) LDH 215(H) 110 - 210 U/L [facility] 08/15/2022 2:50 PM EDT 08/15/2022 4:33 PM EDT Nico Patel MD LAB BLOOD ORDERABLES F inal Result [address] [address] * Uric acid (08/15/2022 2:50 PM EDT) URIC ACID 4.4 2.3 - 6.6 mg/dL [facility] 08/15/2022 2:50 PM EDT 08/15/2022 4:33 PM EDT Nico Patel MD LAB BLOOD ORDERABLES F inal Result Performing Organization Address City/[facility]/ZIP Co de Phone Number [address] [address] * Magnesium (08/15/2022 2:50 PM EDT) MAGNESIUM 1.9 1.7 - 2.4 mg/dL [facility] 08/15/2022 2:50 PM EDT 08/15/2022 4:33 PM EDT Nico Patel MD LAB BLOOD ORDERABLES F inal Result Performing Organization Address City/[facility]/ZIP Co de Phone Number [address] [address] * (ABNORMAL) Renal panel (08/15/2022 2:50 PM EDT) SODIUM 137 135 - 145 mmol/L [facility] POTASSIUM 4.1 3.4 - 5.0 mmol/L [facility] CHLORIDE 101 98 - 108 mmol/L [facility] CO2 25 23 - 32 mmol/L [facility] BUN 14 8 - 25 mg/dL [facility] CREATININE 1.01 0.60 - 1.50 mg/dL [facility] GLUCOSE 103 70 - 110 mg/dL [facility] CALCIUM 9.5 8.5 - 10.5 mg/dL [facility] PHOSPHORUS 4.6(H) 2.6 - 4.5 mg/dL [facility] ALBUMIN 4.6 3.3 - 5.0 g/dL [facility] EGFR 72 >59 mL/min/1. 73m2 [facility] Comment:Estimated glomerular filtration rate calculated using the CKD-EPI refit equation. ANION GAP 11 3 - 17 mmol/L [facility] 08/15/2022 2:50 PM EDT 08/15/2022 4:33 PM EDT Nico Patel MD LAB BLOOD ORDERABLES F inal Result Performing Organization Address [facility] Co de Phone Number [address] [address] * Urinalysis (08/15/2022 2:50 PM EDT) COLOR Yellow Yellow [facility] CLARITY Clear Clear [facility] GLUCOSE Negative Negative [facility] BILI Negative Negative [facility] KETONES Negative Negative [facility] SPECIFIC GRAVITY 1.025 1.001 - 1.035 [facility] BLOOD Negative Negative [facility] PH 6.0 5.0 - 9.0 [facility] Protein-UA Negative Negative [facility] UROBILINOGEN Negative Negative [facility] NITRITE Negative Negative [facility] Leukocyte esterase, ur Negative Negative [facility] Urine 08/15/2022 2:50 PM EDT 08/15/2022 4:35 PM EDT us Nico Patel MD URINE ORDERABLES Final Result Performing Organization Address [facility]/ZIP Co de Phone Number [address] [address] * PT-INR (08/15/2022 2:50 PM EDT) PT 12.7 11.5 - 14.5 sec [facility] INR 1.0 0.9 - 1.1 [facility] 08/15/2022 2:50 PM EDT 08/15/2022 4:34 PM EDT Nico Patel MD LAB BLOOD ORDERABLES F inal Result Performing Organization Address City/[facility]/ZIP Co de Phone Number [address] [address] * PTT (08/15/2022 2:50 PM EDT) APTT 32.6 22.0 - 36.6 sec [facility] Comment:Check MAR for the ta rget range that is ordered for your patient. 08/15/2022 2:50 PM EDT 08/15/2022 4:34 PM EDT Nico Patel MD LAB BLOOD ORDERABLES F inal Result Performing Organization Address [facility] Co de Phone Number [address] [address] * (ABNORMAL) CBC and differential (08/15/2022 2:50 PM EDT) WBC 6.87 4.5 - 11.0 K/uL [facility] RBC 3.84(L) 4.00 - 5.20 M/uL [facility] HGB 11.7(L) 12.0 - 16.0 g/dL [facility] HCT 35.8(L) 36.0 - 46.0 % [facility] PLT 131(L) 150 - 400 K/uL [facility] MCV 93.2 80.0 - 100.0 fL [facility] MCH 30.5 26.0 - 34.0 pg [facility] MCHC 32.7 31.0 - 37.0 g/dL [facility] RDW 13.8 11.5 - 14.5 % [facility] MPV 11.1 8.4 - 12.0 fl [facility] NRBC 0.00 0 - 0.20 /100 WBCs [facility] ABSOLUTE NRBC 0.00 0 - 0.01 K/uL [facility] DIFF METHOD Auto [place] [facility] NEUTS 61.5 40 - 70 % [facility] LYMPHS 23.7 22 - 44 % [facility] MONOS 6.8 4 - 11 % [facility] EOS 6.1 0 - 8 % [facility] BASOS 0.4 0 - 3 % [facility] % IMMATURE GRANS 1.5(H) 0.0 - 0.9 % [facility] Comment:Immature granulocyte s = metamyelos + myelos + promyelos ABSOLUTE NEUTS 4.22 1.8 - 7.7 K/uL [facility] ABSOLUTE LYMPHS 1.63 1.0 - 4.8 K/uL [facility] ABSOLUTE MONOS 0.47 0.2 - 1.2 K/uL [facility] ABSOLUTE EOS 0.42 0.0 - 0.9 K/uL [facility] ABSOLUTE BASOS 0.03 0.0 - 0.3 K/uL [facility] ABS IMMATURE GRANS 0.10 0.00 - 0.10 K/uL [facility] Blood 08/15/2022 2:50 PM EDT 08/15/2022 4:34 PM EDT us Nico Patel MD LAB BLOOD ORDERABLES F inal Result [address] [address] * Type and Screen (ABO,Rh,Antibody Screen) (08/15/2022 2:50 PM EDT) Expiration Date of Sample 08/18/2022 11:59 PM [facility] Antibody Screen Negative 08/15/2022 8:59 PM EDT [facility] Resulting Agency [facility] ABO O 08/15/2022 8:56 PM EDT [facility] Rh Positive 08/15/2022 8:56 PM EDT [facility] 08/15/2022 2:50 PM EDT 08/15/2022 8:08 PM EDT us Nico Patel MD BLOOD BANK TEST ORDERA BLES Final Result Performing Organization Address City/[facility]/ZIP Co de Phone Number [address] [address] * XR CHEST PA AND LATERAL 2 VIEWS (08/15/2022 12:58 PM EDT) Anatomical Region Laterality Modality Chest Computed Radiogr aphy 08/15/2022 1:46 PM EDT Impressions 08/15/2022 1:51 PM EDT 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 Normal heart size. No evidence of adenopathy in the thorax. Small nodules at the RIGHT base are unchanged and probably represent granulomas Narrative 08/15/2022 1:51 PM EDT XR CHEST PA AND LATERAL 2 VIEWS COMPARISON: XR CHEST PORTABLE patient has a history of sarcoidosis. Recently was diagnosed with T-cell lymphoma of lymph nodes in the head and face and neck FINDINGS: Devices/Tubes/Lines: There is a right-sided Port-A-Cath terminating at the SVC/RA junction and there is another tunneled catheter entering the superior vena cava and terminating in the RIGHT atrium. Lungs: Lungs are well expanded and clear. There are 2 small nodules previously identified in the RIGHT middle lobe which appear unchanged. Pleura: Normal. No pleural effusion or pneumothorax. Heart/Mediastinum: Normal heart and mediastinum. Bones/Soft Tissues: Normal. No significant skeletal abnormality. Procedure Note Jodie Llanes MD - 08/15/2022 XR CHEST PA AND LATERAL 2 VIEWS COMPARISON: XR CHEST PORTABLE patient has a history ofsarcoidosis. Recently was diagnosed with T-cell lymphoma of lymph nodes inthe head and face and neck FINDINGS: Devices/Tubes/Lines: There is a right-sided Port-A-Cath terminating at theSVC/RA junction and there is another tunneled catheter entering thesuperior vena cava and terminating in the RIGHT atrium. Lungs: Lungs are well expanded and clear. There are 2 small nodulespreviously identified in the RIGHT middle lobe which appear unchanged. Pleura: Normal. No pleural effusion or pneumothorax. Heart/Mediastinum: Normal heart and mediastinum. Bones/Soft Tissues: Normal. No significant skeletal abnormality. 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 Normal heart size. No evidence of adenopathy in the thorax. Small nodules at the RIGHT base are unchanged and probably representgranulomas us Nico Anthony Jorge MD IMG XR CHEST Final Result * TTE COMPREHENSIVE (08/15/2022 12:26 PM EDT) Body Surface Area 2.09 m2 Left Ventricle Internal Diameter End Diastole 48 37 - 52 mm Left Ventricle Internal Diameter End Systole 32 22 - 35 mm Raw LV EF% 56 % Left Ventricular Apical Contribution 10 Ejection Fraction 66 50 - 75 % Aortic Sinus Diameter 27 mm Left Atrium Dimension Anterior-Posterior 38 15 - 40 mm Ascending Aorta Diameter 26 mm Left Ventricular Posterior Wall Thickness 8 mm Interventricular Septum Thickness 8 mm Aortic Valve Sinus Index 1 13 19 - 27 mm Ascending Aorta Diameter 12 mm Aortic Sinus Index 13 mm Ascending Aorta Index 12 mm Left Atrial Volume 39 mL Left Atrial Volume Index 18.66 mL/m2 Anatomical Region Laterality Modality Heart Ultrasound Narrative 08/16/2022 11:03 AM EDT Normal biventricular size and systolic function No ehmodynamically significant valvular disease. Left Ventricle The left ventricular cavity size and wall thickness are normal. Left ventricular systolic function is normal. There are no segmental left ventricular wall motion abnormalities noted. The estimated ejection fraction is 66% (Normal 50-75%). The left ventricular ejection fraction was measured by the single dimension method. Right Ventricle The right ventricular size is normal. The right ventricular systolic function is normal. Left Atrium The left atrium is normal in size. The LA volume is 39 mL. The LA volume index is 18.66 mL/m2 (normal indexed value is 16-34 mL/m2). Right Atrium The right atrium is normal in size. Mitral Valve There is no evidence of mitral valve prolapse. There is trace mitral regurgitation detected by spectral and color Doppler. Tricuspid Valve There is evidence of trace tricuspid regurgitation by color and spectral Doppler. There is an insufficient tricuspid regurgitation Doppler profile to calculate a right ventricular systolic pressure. Aortic Valve The aortic valve is tricuspid. There is no evidence of valvular aortic stenosis. There is no evidence of aortic regurgitation by color and spectral Doppler. Pulmonic Valve There is evidence of trace pulmonary regurgitation by color and spectral Doppler. Pericardium There is no evidence of pericardial effusion. General Findings The image quality was fair (3). Comparison Findings Compared to a prior TTE from 02/07/2022 ([facility] report), there is no important change. 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, face, and neck Peripheral T cell lymphoma, lymph nodes of head, face, and neck Encounter for other preprocedural examination T-cell lymphoma T-cell lymphoma documented in this encounter Additional Health Concerns [...] documented as of this encounter Care Teams Chemical Inspector Relationship Specialty Start Date End Date Soco Alexis NP PCP - General Family Medicine 01/26/22 03/13/23 Rachana Otto MD [address] [place] [address] [email or web address] PCP - General Family Medicine 03/14/23 05/30/23 Rachana Otto MD [address] [place] [address] [place] [address] [email or web address] PCP - General Family Medicine 05/31/23 10/20/24 Pcp, Unknown PCP - General 11/11/24 12/01/24 Soco Alexis, MICROFILM TECHNICIAN [address] [place] [address] PCP - General Nurse Practitioner 12/02/24 Soco Alexis MICROFILM TECHNICIAN 03/02/17 12/01/24 Paco Jean MD, MPH [address] [place] [address] [email or web address] Insurance Assigned Provider 03/12/22 07/15/22 Guru Glynn MD [address] [place] [address] [address] [place] [address] [email or web address] Primary Oncologist Medical Oncology 01/24/22 05/09/23 Keily Maldonado CNP [address] [place] [address] [email or web address] Nurse Practitioner Medical Oncology 02/16/22 Cassi Carpenter PA-C [address] [place] [address] [email or web address] Physician Solid Propellant Processor Medical Oncology 03/22/22 08/14/24 Azra South RN [address] [place] [address] [email or web address] PHCM Motivational Speaker 05/09/22 04/08/24 Nico Patel MD [address] [place] [address] [address] [place] [address] [email or web address] Primary Oncologist Hematology 07/13/22 Paco Jean MD, MPH [address] [place] [address] [email or web address] Insurance Assigned Provider 09/09/22 01/13/23 Ro Hardin LCSW [address] [place] [address] [email or web address] PHCM Flue Tile Press Operator 12/01/22 12/11/22 Myranda Lloyd [address] [place] [address] [email or web address] PHC Community Cement Despatch Operator 01/16/23 01/17/23 Stuart Saunders MD [address] [place] [address] [email or web address] Primary Oncologist Medical Oncology 01/22/23 Glenna Granados FNP [address] [place] [address] [email or web address] Nurse Practitioner Medical Oncology 03/12/23 08/14/24 Ibis Wilson, OLIVIA [address] [place] [address] Primary Infusion Nurse 08/14/23 Luisa Vega [address] [place] [address] Music Therapist 07/25/24 Moni Argueta RN [address] [place] [address] [email or web address] Nurse Navigator 08/15/24 documented as of this encounter Additional Source Comments The information contained in this document represents components of the legal health record. It is not the complete legal health record.[email or web address]
--- OUTSIDE RECORDS SUMMARY | 2025-02-18 17:19 | XMS_ITS | Encounter Summary ---
Author Organization [facility] Address [address] [place] [address] Phone Care Team Providers Care Pcu Rn Name Role Phone Soco Alexis RELATIONSHIP COUNSELOR Primary Care Provider [phone] Soco Alexis RELATIONSHIP COUNSELOR Unavailable [phone] Paolo Collazo MD Unavailable [phone] Rachana Otto MD Primary Care Provider [phone] Paco Jean MD, MPH Unavailable + [phone] Guru Glynn MD Unavailable Soco Alexis RELATIONSHIP COUNSELOR Primary Care Provider [phone] Keily Maldonado BOTTLE CARRIER Unavailable Cassi Carpenter-C Unavailable pnugebelén Azra South RN Unavailable Nico Patel MD Unavailable Paco Jean MD, MPH Unavailable + [phone] Ro HardinW Unavailable [email or web address] Myranda Lloyd Unavailable [email or web address] Stuart Saunders MD Unavailable [phone] Glenna Granados CHICKEN BONER Unavailable [phone] Rachana Otto MD Primary Care Provider + [phone] Rachana Otto MD Primary Care Provider + [phone] Ibis Wilson RN Unavailable Luisa Vega Unavailable [phone] Moni Argueta RN Unavailable [phone] Pcp, Unknown Primary Care Provider UnavailSoco Hodge RELATIONSHIP COUNSELOR Primary Care Provider [phone] Reason for Referral * MRI/CAT Scan - Closed Specialty Diagnoses / Procedures Referred By Mike quesada Referred To Contact Radiology Diagnoses Sarcoidosis Procedures CT Chest Man Michelle MD Phone: tel: fax: mailto: Referral ID Status Reason Start Date Expiration Date Visits Re quested Visits Authorized [id number] Closed 09/04/2018 09/05/2019 1 1 Encounter Details Date Type Department Care Team (Latest Contact Info) Description 09/03/2018 Transcribe Orders Virtual Department [address] [place] [address] Man Michelle MD [address] [place] [address], [address] [address] [email or web address] Sarcoidosis (Primary Dx) Social History Tobacco Use Types [...] st Contact Info) Description 02/17/2025 Procedure Pass [address] [address] 03/16/2025 8:00 AM EST Telemedicine [facility] 32 [facility] Building, 9th Floor, [address] [place] [address] Krysta Villagomez FNP 32 [facility] [address] [place] [address] [email or web address] 10/19/2025 12:30 PM EDT Appointment [address] [address] Soco Alexis NP [address] [place] [address] documented as of this encounter Results * CT CHEST WITHOUT CONTRAST (09/10/2018 9:27 AM EDT) Anatomical Region Laterality Modality Chest Computed Tomogra phy 09/10/2018 10:2 4 AM EDT Impressions 09/10/2018 10:[address]T [address] appearance of the chest. No manifestations of sarcoidosis nor other pathology. TOTAL CTDIvol: 8.0 mGy POS - [id number] Narrative 09/10/2018 10:39 AM EDT Automated Exposure Control. Multiplanar reconstructions. Nonenhanced exam. Compare to chest x-ray 06/07/2018. FINDINGS: No significant mediastinal or hilar adenopathy. No calcified nodes. No interstitial lung disease. No nodules. No infiltrate. No endobronchial filling defects or bronchiectasis. No pleural or pericardial effusion. No adrenal or thyroid pathology. Very minimal dextroscoliosis. No other bony abnormalities. Procedure Note Mykel Wei MD - 09/10/2018 Automated Exposure Control. Multiplanar reconstructions. Nonenhanced exam. Compare to chest x-ray 06/07/2018. FINDINGS: No significant mediastinal or hilar adenopathy. No calcified nodes. No interstitial lung disease. No nodules. No infiltrate. No endobronchial filling defects or bronchiectasis. No pleural or pericardial effusion. No adrenal or thyroid pathology. Very minimal dextroscoliosis. No other bony abnormalities. IMPRESSION: Essentially normal CT appearance of the chest. No manifestations ofsarcoidosis nor other pathology. TOTAL CTDIvol: 8.0 mGy POS - [id number] Man Michelle MD IMG CT CHEST Final Result documented in this encounter Visit Diagnoses Diagnosis Sarcoidosis- Primary Sarcoidosis documented in this encounter Additional Health [...] documented as of this encounter Care Teams Pcu Rn Relationship Specialty Start Date End Date Soco Alexis RELATIONSHIP COUNSELOR PCP - General Family Medicine 03/02/17 02/24/20 Rachana Otto MD [address] [place] [address] [email or web address] PCP - General Family Medicine 02/25/20 01/25/22 Soco Alexis RELATIONSHIP COUNSELOR PCP - General Family Medicine 01/26/22 03/13/23 Rachana Otto MD [address] [place] [address] [email or web address] PCP - General Family Medicine 03/14/23 05/30/23 Rachana Otto MD [address] [place] [address] [place] [address] [email or web address] PCP - General Family Medicine 05/31/23 10/20/24 Pcp, Unknown PCP - General 11/11/24 12/01/24 Soco Alexis RELATIONSHIP COUNSELOR [address] [place] [address] PCP - General Nurse Practitioner 12/02/24 Soco Alexis RELATIONSHIP COUNSELOR 03/02/17 12/01/24 Paolo Collazo MD [address] [place] [address] [email or web address] Insurance Assigned Provider 06/06/19 08/13/19 Paco Jean MD, MPH [address] [place] [phone] Insurance Assigned Provider 03/12/22 07/15/22 Guru Glynn MD [address] [place] [address] [email or web address] Primary Oncologist Medical Oncology 01/24/22 05/09/23 Keily Maldonado CNP 30 [place] [address] Nurse Practitioner Medical Oncology 02/16/22 Cassi Carpenter PA-C 30 [place] [address] Physician Clinical Specialist Medical Oncology 03/22/22 08/14/24 Azra South, OLIVIA 10 [place] [address] [email or web address] PHCM Elementary Science Teacher 05/09/22 04/08/24 Nico Patel MD [address] [place] [address] [place] [address] [email or web address] Primary Oncologist Hematology 07/13/22 Paco Jean MD, MPH [address] [place] [address] [email or web address] Insurance Assigned Provider 09/09/22 01/13/23 Ro Hardin LCSW 10 [place] [address] [email or web address] Stock Clerk Self Service Store 12/01/22 12/11/22 Myranda Lloyd [address] [place] [address] [email or web address] 01/16/23 01/17/23 Stuart Saunders MD 30 [place] [address] [email or web address] Primary Oncologist Medical Oncology 01/22/23 Glenna Granados, CHICKEN BONER 30 [place] [address] [email or web address] Nurse Practitioner Medical Oncology 03/12/23 08/14/24 Ibis Wilson, OLIVIA [address] [place] [address] [email or web address] Primary Infusion Nurse 08/14/23 Luisa Vega [address] [place] [address] [email or web address] Music Therapist 07/25/24 Moni Argueta, OLIVIA 30 [place] [address] [email or web address] Nurse Navigator 08/15/24 documented as of this encounter Additional Source Comments The information contained in this document represents components of the legal health record. It is not the complete legal health record.[facility]
--- OUTSIDE RECORDS SUMMARY | 2025-02-18 17:19 | XMS_ITS | Encounter Summary ---
Author Organization [facility] Address [address] [place] [address] Phone Care Team Providers Care Peanut Cleaner Name Role Phone Soco Alexis PUBLIC STENOGRAPHER Unavailable Paco Jean MD, MPH Unavailable [phone] Guru Glynn MD Unavailable Soco Alexis PUBLIC STENOGRAPHER Primary Care Provider Keily Maldonado CITY DISTRIBUTION CLERK Unavailable Cassi CarpenterC Unavailable dylan Azra South RN Unavailable Nico Patel MD Unavailable [phone] Paco Jean MD, MPH Unavailable [phone] Ro HardinW Unavailable [email or web address] Myranda Lloyd Unavailable [email or web address] Stuart Saunders MD Unavailable [phone] Glenna Granados MUTTON PUNCHER Unavailable [phone] Rachana Otto MD Primary Care Provider Rachana Otto MD Primary Care Provider [phone] Ibis Wilson RN Unavailable Luisa Vega Unavailable [phone] Moni Argueta RN Unavailable [phone] Pcp, Unknown Primary Care Provider UnavailSoco Hodge NP Primary Care Provider [phone] Encounter Details Date Type Department Care Team (Late st Contact Info) Description 07/07/2022 Procedure Pass [facility], Ct Scan [address] [address] Social History Tobacco Use Types Packs/Day Years [...] 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 file documented as of this encounter Plan of Treatment Upcoming Encounters Date Type Department Care Team (Late st Contact Info) Description 02/17/2025 Procedure Pass [address] [address] 03/16/2025 8:00 AM EST Telemedicine [facility] [address] [place] [address], 9th Floor, [address] [place] [address] Krysta Villagomez FNP 32 [facility] [address] [place] [address] [email or web address] 10/19/2025 12:30 PM EDT Appointment [address] [place] [address] Soco Alexis, PUBLIC STENOGRAPHER [address] [place] [address] documented as of this encounter Visit Diagnoses Not on filedocumented in this encounter Additional Health Concerns Infection Onset Date Last Indicated Resolved Time CoV-Presumed Comment:Per Note Documentation 07/06/2022 07/13/2022 6:57 [...] documented as of this encounter Care Teams Peanut Cleaner Relationship Specialty Start Date End Date Soco Alexis PUBLIC STENOGRAPHER PCP - General Family Medicine 01/26/22 03/13/23 Rachana Otto MD [address] [place] [address] [email or web address] PCP - General Family Medicine 03/14/23 05/30/23 Rachana Otto MD [address] [place] [address] [place] [phone] [email or web address] PCP - General Family Medicine 05/31/23 10/20/24 Pcp, Unknown PCP - General 11/11/24 12/01/24 Soco Alexis, PUBLIC STENOGRAPHER [address] [place] [address] PCP - General Nurse Practitioner 12/02/24 Soco Alexis PUBLIC STENOGRAPHER 03/02/17 12/01/24 Paco Jean MD, MPH [address] [place] [address] Insurance Assigned Provider 03/12/22 07/15/22 Guru Glynn MD [address] [place] [address] [address] [place] [address] [email or web address] Primary Oncologist Medical Oncology 01/24/22 05/09/23 Keily Maldonado CNP 30 [place] [address] [email or web address] Nurse Practitioner Medical Oncology 02/16/22 Cassi Carpenter PA-C 30 [place] [address] [email or web address] Physician Inspector Fuel Hose Medical Oncology 03/22/22 08/14/24 Azra South RN 10 [place] [address] [email or web address] [facility] Sow Manager 05/09/22 04/08/24 Nico Patel MD [address] [place] [address] [address] [email or web address] Primary Oncologist Hematology 07/13/22 Paco Jean MD, MPH [address] [place] [address] [email or web address] Insurance Assigned Provider 09/09/22 01/13/23 Ro Hardin LCSW [address] [place] [address] [email or web address] Gear Machine Operator General 12/01/22 12/11/22 Myranda Lloyd [address] [place] [address] [email or web address] Follower 01/16/23 01/17/23 Stuart Saunders MD 30 [place] [address] [email or web address] Primary Oncologist Medical Oncology 01/22/23 Glenna Granados, MUTTON PUNCHER 30 [place] [address] [email or web address] Nurse Practitioner Medical Oncology 03/12/23 08/14/24 Ibis Wilson, OLIVIA [address] [place] [address] [email or web address] Primary Infusion Nurse 08/14/23 Luisa Vega 100 [place] [phone] [email or web address] Music Therapist 07/25/24 Moni Argueta RN [address] [place] [address] [email or web address] Nurse Navigator 08/15/24 documented as of this encounter Additional Source Comments The information contained in this document represents components of the legal health record. It is not the complete legal health record.[facility]
--- OUTSIDE RECORDS SUMMARY | 2025-02-18 17:19 | XMS_ITS | Encounter Summary ---
Author Organization [facility] Address [address] [place] [address] Phone Care Team Providers Care Order Taker Name Role Phone Soco Aelxis POLYMERIZATION ENGINEER Unavailable [phone] Paco Jean MD, MPH Unavailable [phone] Guru Glynn MD Unavailable Soco Alexis POLYMERIZATION ENGINEER Primary Care Provider Keily Maldonado CLOCK AND WATCH HANDS DIPPER Unavailable Cassi CarpenterC Unavailable dylan Azra South RN Unavailable Nico Patel MD Unavailable Paco Jean MD, MPH Unavailable [phone] Ro HardinW Unavailable [email or web address] Myranda Lloyd Unavailable [email or web address] Stuart Saunders MD Unavailable [phone] Glenna Granados JACQUARD CARD CUTTER Unavailable [phone] Rachana Otto MD Primary Care Provider Rachana Otto MD Primary Care Provider + [phone] Ibis Wilson RN Unavailable Luisa Vega Unavailable [phone] Moni Argueta RN Unavailable [phone] Pcp, Unknown Primary Care Provider UnavailSoco Hodge NP Primary Care Provider [phone] Encounter Details Date Type Department Care Team (Late st Contact Info) Description 07/06/2022 Procedure Pass 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 file documented as of this encounter Functional Status * Calculated C-SSRS Risk Score (Lifetime/Recent) Answer Date of Assessment Author No Risk Indicated 07/06/2022 6:10 AM Tana De La Torre RN * [place] Suicide Severity Rating Scale (Screener/Recent Self-Report) Question [...] st Contact Info) Description 02/17/2025 Procedure Pass [address] [address] 03/16/2025 8:00 AM EST Telemedicine [facility] 32 [facility] Building, 9th Floor, [address] [place] [address] Krysta Villagomez FNP 32 [facility] [address] [place] [address] 10/19/2025 12:30 PM EDT Appointment [address] [address] Soco Alexis POLYMERIZATION ENGINEER [address] [place] [address] documented as of this encounter Visit Diagnoses [...] Precautions and Duration of [facility] 10/14/2024 10/14/2024 10/21/2024 1:21 AM E DT Assessment Noted Time PHQ-2 Depression Total Score: 2 05/17/19 10:19 AM EST documented as of this encounter Care Teams Order Taker Relationship Specialty Start Date End Date Soco Alexis POLYMERIZATION ENGINEER PCP - General Family Medicine 01/26/22 03/13/23 Rachana Otto MD 30 [place] [address] [email or web address] PCP - General Family Medicine 03/14/23 05/30/23 Rachana Otto MD [address] [place] [address] [place] [address] [email or web address] PCP - General Family Medicine 05/31/23 10/20/24 Pcp, Unknown PCP - General 11/11/24 12/01/24 Soco Alexis POLYMERIZATION ENGINEER [address] [place] [address] PCP - General Nurse Practitioner 12/02/24 Soco Alexis POLYMERIZATION ENGINEER 03/02/17 12/01/24 Paco Jean MD, MPH 70 [place] [address] [email or web address] Insurance Assigned Provider 03/12/22 07/15/22 Guru Glynn MD [address] [place], [place] [address] [address] [place] [address] [email or web address] Primary Oncologist Medical Oncology 01/24/22 05/09/23 Keily Maldonado CNP [address] [place] [address] Nurse Practitioner Medical Oncology 02/16/22 Cassi Carpenter PA-C [address] [place] [address] Physician Head Custodian Medical Oncology 03/22/22 08/14/24 Azra South RN [address] [place] [address] PHCM Sponge Buffer 05/09/22 04/08/24 Nico Patel MD [address] [place] [address] [email or web address] Primary Oncologist Hematology 07/13/22 Paco Jean MD, MPH [address] [place] [address] [email or web address] Insurance Assigned Provider 09/09/22 01/13/23 Ro Hardin LCSW [address] [place] [address] [email or web address] PHCM Ham Facer 12/01/22 12/11/22 Myranda Lloyd [address] [place] [address] [email or web address] PHCM Community Armor Reconnaissance Vehicle Crewman 01/16/23 01/17/23 Stuart Saunders MD [address] [place] [address] Primary Oncologist Medical Oncology 01/22/23 Glenna Granados FNP [address] [place] [address] Nurse Practitioner Medical Oncology 03/12/23 08/14/24 Ibis Wilson RN [address] [place] [phone] Primary Infusion Nurse 08/14/23 Luisa Vega [address] [place] [address] Music Therapist 07/25/24 Moni Argueta RN [address] [place] [address] [email or web address] Nurse Navigator 08/15/24 documented as of this encounter Additional Source Comments The information contained in this document represents components of the legal health record. It is not the complete legal health record.[facility]
--- OUTSIDE RECORDS SUMMARY | 2025-02-18 17:19 | XMS_ITS | Encounter Summary ---
Author Organization [facility] Address [address] [place] [address] Phone Care Team Providers Care Bark Grinder Name Role Phone Soco Alexis EARLY CHILDHOOD EDUCATION WORKER Unavailable [phone] Rachana Otto MD Primary Care Provider [phone] Paco Jean MD, MPH Unavailable [phone] Guru Glynn MD Unavailable Soco Alexis EARLY CHILDHOOD EDUCATION WORKER Primary Care Provider Keily Maldonado COMPUTER SECURITY SPECIALIST Unavailable Cassi CarpenterC Unavailable pnkristel Azra South RN Unavailable Nico Patel MD Unavailable [phone] Paco Jean MD, MPH Unavailable [phone] Ro HardinW Unavailable [email or web address] Myranda Lloyd Unavailable [email or web address] Stuart Saunders MD Unavailable [phone] Granados, Glenna B AIRPLANE PILOT PHOTOGRAMMETRY Unavailable [phone] Rachana Otto MD Primary Care Provider [phone] Rachana Otto MD Primary Care Provider [phone] Ibis Wilson RN Unavailable RosalindLuisa velasquezan Unavailable [phone] Moni Argueta RN Unavailable [phone] Pcp, Unknown Primary Care Provider Unavailabl Soco Osullivan NP Primary Care Provider [phone] Encounter Details Date Type Department Care Team (Latest Contact Info) Description 02/26/2020 Transcribe Orders Virtual Department 30 [place] [address] Ibis Koch PA-C [address], [address] [place] [address] [email or web address] Constipation, unspecified constipation type (Primary Dx); Epigastric abdominal pain Social History Tobacco Use Types Packs/Day Years [...] Contact Info) Description 02/17/2025 Procedure Pass [facility], [facility] [address] [place] [address] 03/16/2025 8:00 AM EST Telemedicine [facility] 32 [facility], 9th Floor, [address] [place] [address] Krysta Villagomez, AIRPLANE PILOT PHOTOGRAMMETRY 32 [facility] [address] 9 [place] [address] 10/19/2025 12:30 PM EDT Appointment [facility] [address] [place] [address] Soco Alexis, EARLY CHILDHOOD EDUCATION WORKER [address] [place] [address] documented as of this encounter Results * US Abdomen Complete (03/02/2020 10:24 AM EDT) Anatomical Region Laterality Modality Abdomen Ultrasound 03/02/2020 10:3 7 AM EDT Impressions 03/02/2020 10:45 AM EDT The described heterogenous hepatic texture may be a normal variant but is statistically most often seen with fatty infiltration; other diffuse liver processes can have this appearance. No gallstones or hydronephrosis to correlate with upper abdominal pain. Narrative 03/02/2020 10:45 AM EDT History: Abdomen discomfort US ABDOMEN COMPLETE TECHNIQUE: Ultrasound evaluation of the abdomen. Volumetric sweeps were obtained and reviewed. COMPARISON: None FINDINGS: MIDLINE VASCULATURE: The visualized IVC is patent. Portal vein is patent. The aorta is not aneurysmal. LIVER: The texture of the liver is diffusely hyperechoic, a finding most typically associated with fatty infiltration of the liver, but this can be a normal variant and correlation with LFTs will be helpful. Also, other infiltrative processes can have this appearance. This heterogeneity decreases the sensitivity of ultrasound for the detection of hepatic lesions, with no mass demonstrated on this examination. BILIARY: No gallstones, gallbladder wall edema, or reported tenderness on probe palpation over the gallbladder. No pericholecystic fluid demonstrated. No intrahepatic biliary duct dilatation. The common bile duct measures 3 mm. PANCREAS: Incompletely visualized due to overlying bowel gas. No peripancreatic inflammatory fluid SPLEEN: No splenomegaly. PERITONEUM: No free fluid. KIDNEYS: Normal size and texture bilaterally. No hydronephrosis. No sonographically evident solid mass lesion. Procedure Note Nico Jerez MD - 03/02/2020 History: Abdomen discomfort US ABDOMEN COMPLETE TECHNIQUE: Ultrasound evaluation of the abdomen. Volumetric sweeps were obtained andreviewed. COMPARISON: None FINDINGS: MIDLINE VASCULATURE: The visualized IVC is patent. Portal vein ispatent. The aorta is not aneurysmal. LIVER: The texture of the liver is diffusely hyperechoic, a finding mosttypically associated with fatty infiltration of the liver, but this can jan normal variant and correlation with LFTs will be helpful. Also, otherinfiltrative processes can have this appearance. This heterogeneitydecreases the sensitivity of ultrasound for the detection of hepaticlesions, with no mass demonstrated on this examination. BILIARY: No gallstones, gallbladder wall edema, or reported tenderness on probepalpation over the gallbladder. No pericholecystic fluid demonstrated. Nointrahepatic biliary duct dilatation. The common bile duct measures 3mm. PANCREAS: Incompletely visualized due to overlying bowel gas. Noperipancreatic inflammatory fluid SPLEEN: No splenomegaly. PERITONEUM: No free fluid. KIDNEYS: Normal size and texture bilaterally. No hydronephrosis. Nosonographically evident solid mass lesion. IMPRESSION: The described heterogenous hepatic texture may be a normal variant but isstatistically most often seen with fatty infiltration; other diffuse liverprocesses can have this appearance. No gallstones or hydronephrosis to correlate with upper abdominal pain. Ibis Koch PA-C IM US ABDOMEN Final Result documented in this encounter Visit Diagnoses Diagnosis Constipation, unspecified constipation type- Primary Epigastric abdominal pain Abdominal pain, epigastric Constipation, unspecified constipation type Epigastric abdominal pain Abdominal pain, epigastric documented in this encounter [...] documented as of this encounter Care Teams Bark Grinder Relationship Specialty Start Date End Date Rachana Otto MD [email or web address] PCP - General Family Medicine 02/25/20 01/25/22 Soco Alexis EARLY CHILDHOOD EDUCATION WORKER PCP - General Family Medicine 01/26/22 03/13/23 Rachana Otto MD 30 [place] [address] [email or web address] PCP - General Family Medicine 03/14/23 05/30/23 Rachana Otto MD [address] [place] [address] [place] [address] [email or web address] PCP - General Family Medicine 05/31/23 10/20/24 Pcp, Unknown PCP - General 11/11/24 12/01/24 Soco Alexis, EARLY CHILDHOOD EDUCATION WORKER [address] [place] [address] PCP - General Nurse Practitioner 12/02/24 Soco Alexis, EARLY CHILDHOOD EDUCATION WORKER 03/02/17 12/01/24 Paco Jean MD, MPH [address] [place] [address] [email or web address] Insurance Assigned Provider 03/12/22 07/15/22 Guru Glynn MD [address] [place] [address] [address], [place] [address] [email or web address] Primary Oncologist Medical Oncology 01/24/22 05/09/23 Keily Maldonado CNP 30 [place] [address] [email or web address] Nurse Practitioner Medical Oncology 02/16/22 Cassi Carpenter PA-C 30 [place] [address] [email or web address] Physician Medical Billing Manager Medical Oncology 03/22/22 08/14/24 Azra South, OLIVIA [address] [place] [address] [email or web address] PHCM Application Support Technician 05/09/22 04/08/24 Nico Patel MD [address] [place] [address] [address] [address] [email or web address] Primary Oncologist Hematology 07/13/22 Paco Jean MD, MPH [address] [place] [address] [email or web address] Insurance Assigned Provider 09/09/22 01/13/23 Ro Hardin LCSW [address] [place] [address] [email or web address] PHC Parking Lot Spotter 12/01/22 12/11/22 Myranda Lloyd [address] [place] [address] [email or web address] PHC Community Investigative Agent 01/16/23 01/17/23 Stuart Saunders MD 30 [place] [address] [email or web address] Primary Oncologist Medical Oncology 01/22/23 Glenna Granados FNP 30 [place] [address] [email or web address] Nurse Practitioner Medical Oncology 03/12/23 08/14/24 Ibis Wilson, OLIVIA [address] [place] [address] Primary Infusion Nurse 08/14/23 Luisa Vega [address] [place] [address] Music Therapist 07/25/24 Moni Argueta RN 30 [place] [address] [email or web address] Nurse Navigator 08/15/24 documented as of this encounter Additional Source Comments The information contained in this document represents components of the legal health record. It is not the complete legal health record.[facility]
--- OUTSIDE RECORDS SUMMARY | 2025-02-18 17:19 | XMS_ITS | Encounter Summary ---
Author Organization [facility] Address [address] [place] [address] Phone Care Team Providers Care Stocking And Box Shop Supervisor Name Role Phone Soco Alexis HUMAN RESOURCES SERVICES SPECIALIST Unavailable [phone] Keily Maldonado SUPERVISOR STITCHING DEPARTMENT Unavailable Cassi CarpenterC Unavailable dylan Azra South RN Unavailable Nico Paetl MD Unavailable [phone] Stuart Saunders MD Unavailable [phone] Glenna Granados PORTRAIT PHOTOGRAPHER Unavailable Rachana Otto MD Primary Care Provider Ibis Wilson RN Unavailable Luisa Vega Unavailable [phone] Moni Argueta RN Unavailable Pcp, Unknown Primary Care Provider Unavailabl Soco Osullivan HUMAN RESOURCES SERVICES SPECIALIST Primary Care Provider [phone] Encounter Details Date Type Department Care Team (Late st Contact Info) Description 06/04/2023 Procedure Pass [facility], [facility] - [facility] [address] [place] [address] Social History Tobacco Use Types Packs/Day Years [...] Date of Assessment Author No Risk Indicated 06/04/2023 5:36 PM Minna Dowd, OLIVIA * Foster Suicide Severity Rating Scale (Screener/Recent Self-Report) Question Answer Date of Assessment Author 1. Wish to be (Past 1 Month) No 024 5:36 PM Minna Dowd, OLIVIA 2. Non-Specific Active Suici jared Thoughts (Past 1 Month) No 06/04/2023 5:36 PM Minna Dowd, OLIVIA 6. Suicidal Behavior (Lifetime) No 5:36 PM Minna Dowd, OLIVIA documented as of this encounter Plan of Treatment Upcoming Encounters Date Type Department Care Team (Late st Contact Info) Description 02/17/2025 Procedure Pass [address] [address] 03/16/2025 8:00 AM EST Telemedicine [facility] 32 [facility], 9th Floor, [address] [place] [address] Krysta Villagomez FNP 32 [facility] [address] [place] [address] 10/19/2025 12:30 PM EDT Appointment [address] [address] Soco Alexis, HUMAN RESOURCES SERVICES SPECIALIST 230 [place] [address] documented as of this encounter Visit Diagnoses [...] documented as of this encounter Care Teams Stocking And Box Shop Supervisor Relationship Specialty Start Date End Date Rachana Otto MD [address] [place] [address] [place] [phone] [email or web address] PCP - General Family Medicine 05/31/23 10/20/24 Pcp, Unknown PCP - General 11/11/24 12/01/24 Soco Alexis, HUMAN RESOURCES SERVICES SPECIALIST [address] [place] [address] PCP - General Nurse Practitioner 12/02/24 Soco Alexis, HUMAN RESOURCES SERVICES SPECIALIST 03/02/17 12/01/24 Keily Maldonado CNP [address] [place] [address] [email or web address] Nurse Practitioner Medical Oncology 02/16/22 Cassi Carpenter PA-C [address] [place] [address] [email or web address] Physician Satellite Dish Technician Medical Oncology 03/22/22 08/14/24 Azra South RN [address] [place] [address] [email or web address] PHC Group Sales Coordinator 05/09/22 04/08/24 Nico Patel MD [address] [place] [address] Primary Oncologist Hematology 07/13/22 Stuart Saunders MD [address] [place] [address] Primary Oncologist Medical Oncology 01/22/23 Glenna Granados FNP [address] [place] [address] Nurse Practitioner Medical Oncology 03/12/23 08/14/24 Ibis Wilson RN [address] [place] [phone] Primary Infusion Nurse 08/14/23 Luisa Vega 100 [place] [address] Music Therapist 07/25/24 Moni Argueta RN 30 [place] [address] Nurse Navigator 08/15/24 documented as of this encounter Additional Source Comments The information contained in this document represents components of the legal health record. It is not the complete legal health record.[facility]
--- OUTSIDE RECORDS SUMMARY | 2025-02-18 17:19 | XMS_ITS | Encounter Summary ---
Author Organization [facility] Address [address] [place] [address] Phone Care Team Providers Care Hydrogen Power Plant Engineer Name Role Phone Soco Alexis DIVERSIONAL THERAPIST'S ASSISTANT Unavailable [phone] Keily Maldonado CANOPY INSPECTOR Unavailable Cassi Carpenter PA-C Unavailable dylan Azra South RN Unavailable Nico Patel MD Unavailable Stuart Saunders MD Unavailable [phone] lGenna Granados DIRECTOR INVESTOR RELATIONS Unavailable [phone] Rachana Otto MD Primary Care Provider [phone] Rachana Otto MD Primary Care Provider Ibis Wilson RN Unavailable Luisa Vega Unavailable [phone] Moni Argueta RN Unavailable [phone] Pcp, Unknown Primary Care Provider Unavailabl Soco Osullivan DIVERSIONAL THERAPIST'S ASSISTANT Primary Care Provider [phone] Reason for Referral * Outpatient Procedure - Closed Specialty Diagnoses / Procedures Referred By Mike quesada Referred To Contact Radiology Diagnoses Elevated liver enzymes Gastroesophageal reflux disease without esophagitis Procedures US Abdomen Limited Ibis Koch PA-C Phone: tel: fax: [email or web address] Referral ID Status Reason Start Date Expiration Date Visits Re quested Visits Authorized [id number] Closed 05/25/2023 1 1 Encounter Details Date Type Department Care Team (Latest Contact Info) Description 05/25/2023 Transcribe Orders Virtual Department [address] [place] [address] Ibis Koch PA-C [address] [place] [address] [email or web address] Elevated liver enzymes (Primary Dx); Gastroesophageal reflux disease without esophagitis Social History Tobacco Use Types Packs/Day Years [...] st Contact Info) Description 02/17/2025 Procedure Pass [address] [address] 03/16/2025 8:00 AM EST Telemedicine [facility] 32 [facility], 9th Floor, [address] [place] [address] Krysta Villagomez FNP 32 [facility] [address] [place] [address] 10/19/2025 12:30 PM EDT Appointment [address] [address] Soco Alexis DIVERSIONAL THERAPIST'S ASSISTANT 230 [place] [address] documented as of this encounter Results * US ABDOMEN LIMITED RIGHT UPPER QUADRANT (05/31/2023 9:02 AM EST) Anatomical Region Laterality Modality Abdomen Ultrasound 05/31/2023 8:02 PM EST Impressions 06/01/2023 4:51 AM EST Hepatic steatosis. Narrative 06/01/2023 4:51 AM EST US ABDOMEN LIMITED RIGHT UPPER QUADRANT Referring clinician's provided indication for this examination in [facility]: Outside Radiology Order; Elevated Liver Enzymes; GERD TECHNIQUE: US Abdominal limited right upper quadrant. COMPARISON: CT ABDOMEN/PELVIS WITH CONTRAST FINDINGS: Liver: Hyperechogenic parenchyma with areas of focal sparing no suspicious focal lesions. Main Portal Vein: Patent with normal direction of flow. Gallbladder: No gallstones or gallbladder wall thickening. Zabala's Sign: Negative. Biliary: No intrahepatic or extrahepatic biliary ductal dilatation. The common bile duct measures 4 mm. Procedure Note Jona Gtz MD - 06/01/2023 US ABDOMEN LIMITED RIGHT UPPER QUADRANT Referring clinician's provided indication for this examination in Epic:Outside Radiology Order; Elevated Liver Enzymes; GERD TECHNIQUE: US Abdominal limited right upper quadrant. COMPARISON: CT ABDOMEN/PELVIS WITH CONTRAST FINDINGS: Liver: Hyperechogenic parenchyma with areas of focal sparing no suspiciousfocal lesions. Main Portal Vein: Patent with normal direction of flow. Gallbladder: No gallstones or gallbladder wall thickening. Zabala's Sign: Negative. Biliary: No intrahepatic or extrahepatic biliary ductal dilatation. The common bile duct measures 4 mm. IMPRESSION: Hepatic steatosis. Ibis Koch PA-C IMEnid US ABDOMEN Final Result documented in this encounter Visit Diagnoses Diagnosis Elevated liver enzymes- Primary Other nonspecific abnormal serum enzyme levels Gastroesophageal reflux disease without esophagitis Esophageal reflux Elevated liver enzymes Other nonspecific abnormal serum enzyme levels Gastroesophageal reflux disease without esophagitis Esophageal reflux documented in this encounter Additional Health Concerns [...] documented as of this encounter Care Teams Hydrogen Power Plant Engineer Relationship Specialty Start Date End Date Rachana Otto MD [address] [place] [address] [email or web address] PCP - General Family Medicine 03/14/23 05/30/23 Rachana Otto MD [address] [place] [address] [place] [address] [email or web address] PCP - General Family Medicine 05/31/23 10/20/24 Pcp, Unknown PCP - General 11/11/24 12/01/24 Soco Alexis, DIVERSIONAL THERAPIST'S ASSISTANT [address] [place] [address] PCP - General Nurse Practitioner 12/02/24 Soco Alexis, DIVERSIONAL THERAPIST'S ASSISTANT 03/02/17 12/01/24 Keily Maldonado, AUBREE [address] [place] [address] Nurse Practitioner Medical Oncology 02/16/22 Cassi Carpenter PA-C [address] [place] [address] Physician Triage Technician Medical Oncology 03/22/22 08/14/24 Azra South, OLIVIA [address] [place] [address] PHCM Quarrying Specialist 05/09/22 04/08/24 Nico Patel MD [address] [place] [address] Primary Oncologist Hematology 07/13/22 Stuart Saunders MD [address] [place] [address] Primary Oncologist Medical Oncology 01/22/23 Glenna Granados, DIRECTOR INVESTOR RELATIONS [address] [place] [address] [email or web address] Nurse Practitioner Medical Oncology 03/12/23 08/14/24 Ibis Wilson RN [address] [place] [phone] [email or web address] Primary Infusion Nurse 08/14/23 Luisa Vega [address] [place] [phone] Music Therapist 07/25/24 Moni Argueta RN [address] [place] [address] [email or web address] Nurse Navigator 08/15/24 documented as of this encounter Additional Source Comments The information contained in this document represents components of the legal health record. It is not the complete legal health record.[facility]
--- OUTSIDE RECORDS SUMMARY | 2025-02-18 17:20 | XMS_ITS | Encounter Summary ---
Author Organization [facility] Address [address] [place] [address] Phone Care Team Providers Care Broaching Machine Set Up Operator Name Role Phone Soco Alexis OUTSEWER Unavailable Rachana Otto MD Primary Care Provider [phone] Paco Jean MD, MPH Unavailable [phone] Guru Glynn MD Unavailable Soco Alexis OUTSEWER Primary Care Provider Keily Maldonado SALES RECRUITMENT SPECIALIST Unavailable Cassi CarpenterC Unavailable pnkristel Azra South RN Unavailable Nico Patel MD Unavailable Paco Jean MD, MPH Unavailable [phone] Ro HardinW Unavailable abdirashid Myranda Lloyd Unavailable [email or web address] va [facility] center.[email or web address] Stuart Saunders MD Unavailable [phone] Granados, Glenna B ACCOUNTING REPRESENTATIVE Unavailable [phone] Rachana Otto MD Primary Care Provider + [phone] Rachana tOto MD Primary Care Provider + [phone] Ibis Wilson RN Unavailable AveryLuisa burkettan Unavailable [phone] Moni Argueta RN Unavailable [phone] Pcp, Unknown Primary Care Provider UnavailSoco Hodge NP Primary Care Provider [phone] Encounter Details Date Type Department Care Team (Late st Contact Info) Description 01/27/2021 Procedure Pass [address] [address] Social History Tobacco Use Types Packs/Day Years Used Date Smoking Tobacco: Light Smoker Cigarettes Started: 1991; L ast attempted to quit: 04/14/2020 Smokeless Tobacco: Never Comments:occasionally Alcohol Use Standard Drinks/Week Comments Yes 0 [...] st Contact Info) Description 02/17/2025 Procedure Pass [address] [address] 03/16/2025 8:00 AM EST Telemedicine [facility] [address] [facility], 9th Floor, [address] [place] [address] Krysta Villagomez, [facility] 32 [facility] [address] [place] [address] 10/19/2025 12:30 PM EDT Appointment [facility] [address] [place] [address] Sooc Alexis, OUTSEWER [address] [place] [address] documented as of this encounter Visit Diagnoses [...] documented as of this encounter Care Teams Broaching Machine Set Up Operator Relationship Specialty Start Date End Date Rachana Otto MD [email or web address] PCP - General Family Medicine 02/25/20 01/25/22 Soco Alexis OUTSEWER PCP - General Family Medicine 01/26/22 03/13/23 Rachana Otto MD 30 [place] [address] [email or web address] PCP - General Family Medicine 03/14/23 05/30/23 Rachana Otto MD [address] [place] [phone] [email or web address] PCP - General Family Medicine 05/31/23 10/20/24 Pcp, Unknown PCP - General 11/11/24 12/01/24 Soco Alexis OUTSEWER [address] [place] [address] PCP - General Nurse Practitioner 12/02/24 Soco Alexis OUTSEWER 03/02/17 12/01/24 Paco Jean MD, MPH 70 [place] [address] [email or web address] Insurance Assigned Provider 03/12/22 07/15/22 Guru Glynn MD [address] [place] [address] [address] [place] [address] [email or web address] Primary Oncologist Medical Oncology 01/24/22 05/09/23 Keily Maldonado CNP 30 [place] [address] Nurse Practitioner Medical Oncology 02/16/22 Cassi Carpenter PA-C [address] [place] [address] Physician Lottery Manager Medical Oncology 03/22/22 08/14/24 Azra South RN [address] [place] [address] PHCM Oil Spot Washer 05/09/22 04/08/24 Nico Patel MD [address] [place] [address] [email or web address] Primary Oncologist Hematology 07/13/22 Paco Jean MD, MPH [address] [place] [address] Insurance Assigned Provider 09/09/22 01/13/23 Ro Hardin LCSW [address] [place] [address] [email or web address] PHCM Vamp Wetter 12/01/22 12/11/22 Myranda Lloyd [address] [place] [place] [address] [email or web address] PHCM Community Voice Coach 01/16/23 01/17/23 Stuart Saunders MD [address] [place] [address] Primary Oncologist Medical Oncology 01/22/23 Glenna Granados FNP [address] [place] [address] Nurse Practitioner Medical Oncology 03/12/23 08/14/24 Ibis Wilson RN [address] [place] [phone] [email or web address] Primary Infusion Nurse 08/14/23 Luisa Vega [address] [place] [phone] Music Therapist 07/25/24 Moni Argueta RN [address] [place] [address] [email or web address] Nurse Navigator 08/15/24 documented as of this encounter Additional Source Comments The information contained in this document represents components of the legal health record. It is not the complete legal health record.[facility]
--- OUTSIDE RECORDS SUMMARY | 2025-02-18 17:20 | XMS_ITS | Encounter Summary ---
Author Organization [facility] Address [address] [place] [address] Phone Care Team Providers Care Career Development Counselor Name Role Phone Soco Alexis ICE CUTTER Unavailable [phone] Rachana Otto MD Primary Care Provider [phone] Paco Jean MD, MPH Unavailable [phone] Guru Glynn MD Unavailable Soco Alexis ICE CUTTER Primary Care Provider Keily Maldonado SALES REPRESENTATIVE MALT LIQUORS Unavailable Cassi CarpenterC Unavailable pnkristel Azra South RN Unavailable Nico Patel MD Unavailable Paco Jean MD, MPH Unavailable [phone] Ro HardinW Unavailable abdirashid Myranda Lloyd Unavailable [email or web address] [email or web address] Stuart Saunders MD Unavailable [phone] Granados, Glenna B SAT ACT INSTRUCTOR Unavailable [phone] Rachana Otto MD Primary Care Provider [phone] Rachana Otto MD Primary Care Provider + [phone] Ibis Wilson RN Unavailable MelinaLuisa tomlinsonan Unavailable [phone] Moni Argueta RN Unavailable [phone] Pcp, Unknown Primary Care Provider UnavailSoco Hodge NP Primary Care Provider [phone] Encounter Details Date Type Department Care Team (Late st Contact Info) Description 07/02/2020 Procedure Pass [facility] [address] [place] [address] Social History Tobacco Use Types Packs/Day Years [...] Contact Info) Description 02/17/2025 Procedure Pass [address] [address] 03/16/2025 8:00 AM EST Telemedicine [facility] 32 [facility], 9th Floor, [address] [place] [address] Krysta Villagomez, SAT ACT INSTRUCTOR 32 [facility] [address] [place] [address] [email or web address] 10/19/2025 12:30 PM EDT Appointment [address] [place] [address] Soco Alexis, ICE CUTTER 230 [place] [address] documented as of this encounter Visit Diagnoses [...] documented as of this encounter Care Teams Career Development Counselor Relationship Specialty Start Date End Date Rachana Otto MD [email or web address] PCP - General Family Medicine 02/25/20 01/25/22 Soco Alexis ICE CUTTER PCP - General Family Medicine 01/26/22 03/13/23 Rachana Otto MD 30 [place] [address] [email or web address] PCP - General Family Medicine 03/14/23 05/30/23 Rachana Otto MD [address] [place] [phone] [email or web address] PCP - General Family Medicine 05/31/23 10/20/24 Pcp, Unknown PCP - General 11/11/24 12/01/24 Soco Alexis ICE CUTTER 230 [place] [address] PCP - General Nurse Practitioner 12/02/24 Soco Alexis ICE CUTTER 03/02/17 12/01/24 Paco Jean MD, MPH 70 [place] [address] [email or web address] Insurance Assigned Provider 03/12/22 07/15/22 Guru Glynn MD [address] [place] [address] [address] [place] [address] [email or web address] Primary Oncologist Medical Oncology 01/24/22 05/09/23 Keily Maldonado CNP 30 [place] [address] [email or web address] Nurse Practitioner Medical Oncology 02/16/22 Cassi Carpenter PA-C [address] [place] [address] [email or web address] Physician Manager Business Planning Medical Oncology 03/22/22 08/14/24 Azra South RN [address] [place] [address] [email or web address] PHCM Grain Packer 05/09/22 04/08/24 Nico Patel MD [address] [place] [address] [email or web address] Primary Oncologist Hematology 07/13/22 Paco Jean MD, MPH [address] [place] [address] [email or web address] Insurance Assigned Provider 09/09/22 01/13/23 Ro Hardin LCSW 10 [place] [address] [email or web address] PHCM Sales Architect 12/01/22 12/11/22 Myranda Lloyd [address] [place] [address] [email or web address] PHCM Community Access Services Librarian 01/16/23 01/17/23 Stuart Saunders MD [address] [place] [address] Primary Oncologist Medical Oncology 01/22/23 Glenna Granados FNP [address] [place] [address] Nurse Practitioner Medical Oncology 03/12/23 08/14/24 Ibis Wilson RN [address] [place] [phone] Primary Infusion Nurse 08/14/23 Luisa Vega [address] [place] [phone] Music Therapist 07/25/24 Moni Argueta RN [address] [place] [address] [email or web address] Nurse Navigator 08/15/24 documented as of this encounter Additional Source Comments The information contained in this document represents components of the legal health record. It is not the complete legal health record.[facility]
--- OUTSIDE RECORDS SUMMARY | 2025-02-18 17:20 | XMS_ITS | Encounter Summary ---
Author Organization [facility] Address [address] [place] [address] Phone Care Team Providers Care Commercial Collections Driver Name Role Phone Soco Alexis SOFT WORK WRAPPER EXAMINER Unavailable Rachana Otto MD Primary Care Provider [phone] Paco Jean MD, MPH Unavailable [phone] Guru Glynn MD Unavailable Soco Alexis SOFT WORK WRAPPER EXAMINER Primary Care Provider Keily Maldonado SMALL PRODUCTS I ASSEMBLER Unavailable Cassi CarpenterC Unavailable pnkristel Azra South RN Unavailable Nico Patel MD Unavailable Paco Jean MD, MPH Unavailable [phone] Ro HardinW Unavailable abdirashid Myranda Lloyd Unavailable [email or web address] [email or web address] Stuart Saunders MD Unavailable [phone] Granados, Glenna B SET UP OPERATOR TOOL Unavailable [phone] Rachana Otto MD Primary Care Provider [phone] Rachana Otto MD Primary Care Provider + [phone] Ibis Wilson RN Unavailable MelinaLuisa tomlinsonan Unavailable [phone] Moni Argueta RN Unavailable [phone] Pcp, Unknown Primary Care Provider UnavailSoco Hodge NP Primary Care Provider [phone] Encounter Details Date Type Department Care Team (Late st Contact Info) Description 01/17/2022 Procedure Pass OR Admitting Dept - Virtual Department [address] [place] [address] Social History Tobacco Use Types Packs/Day Years Used Date Smoking Tobacco: Light Smoker Cigarettes Started: 1991 Smokeless Tobacco: Never Comments:8-10 cigs /day Alcohol Use Standard Drinks/Week Comments Yes 5 (1 standard drink = 0.6 oz pur [...] st Contact Info) Description 02/17/2025 Procedure Pass [address] [address] 03/16/2025 8:00 AM EST Telemedicine [facility] [address] [place] [address], 9th Floor, [address] [place] [address] Krysta Villagomez, [facility] 32 [facility] [address] [place] [address] [email or web address] 10/19/2025 12:30 PM EDT Appointment [address] [place] [address] Soco Alexis, SOFT WORK WRAPPER EXAMINER [address] [place] [address] documented as of this encounter Visit Diagnoses [...] documented as of this encounter Care Teams Commercial Collections Driver Relationship Specialty Start Date End Date Rachana Otto MD [email or web address] PCP - General Family Medicine 02/25/20 01/25/22 Soco Alexis SOFT WORK WRAPPER EXAMINER PCP - General Family Medicine 01/26/22 03/13/23 Rachana Otto MD 30 [place] [address] [email or web address] PCP - General Family Medicine 03/14/23 05/30/23 Rachana Otto MD [address] [place] [phone] [email or web address] PCP - General Family Medicine 05/31/23 10/20/24 Pcp, Unknown PCP - General 11/11/24 12/01/24 Soco Alexis, SOFT WORK WRAPPER EXAMINER [address] [place] [address] PCP - General Nurse Practitioner 12/02/24 Soco Alexis SOFT WORK WRAPPER EXAMINER 03/02/17 12/01/24 Paco Jean MD, MPH 70 [place], [place] [phone] [email or web address] Insurance Assigned Provider 03/12/22 07/15/22 Guru Glynn MD [address] [place] [address] [address] [place] [address] [email or web address] Primary Oncologist Medical Oncology 01/24/22 05/09/23 Keily Maldonado CNP [address] [place] [address] [email or web address] Nurse Practitioner Medical Oncology 02/16/22 Cassi Carpenter PA-C [address] [place] [address] [email or web address] Physician Hematology Oncology Consultant Medical Oncology 03/22/22 08/14/24 Azra South RN [address] [place] [address] [email or web address] PHCM Frame Wirer 05/09/22 04/08/24 Nico Patel MD [address] [place] [address] [email or web address] Primary Oncologist Hematology 07/13/22 Paco Jean MD, MPH [address] [place] [address] [email or web address] Insurance Assigned Provider 09/09/22 01/13/23 Ro Hardin LCSW [address] [place] [address] [email or web address] PHCM Char Dust Cleaner And Salvager 12/01/22 12/11/22 Myranda Lloyd [address] [place] [address] [email or web address] PHCM Community Voip Engineer 01/16/23 01/17/23 Stuart Saunders MD 30 [place] [address] [email or web address] Primary Oncologist Medical Oncology 01/22/23 Glenna Granados FNP [address] [place] [address] [email or web address] Nurse Practitioner Medical Oncology 03/12/23 08/14/24 Ibis Wilson RN [address] [place] [phone] [email or web address] Primary Infusion Nurse 08/14/23 Luisa Vega [address] [place] [phone] Music Therapist 07/25/24 Moni Argueta RN [address] [place] [address] [email or web address] Nurse Navigator 08/15/24 documented as of this encounter Additional Source Comments The information contained in this document represents components of the legal health record. It is not the complete legal health record.[facility]
--- OUTSIDE RECORDS SUMMARY | 2025-02-18 17:20 | XMS_ITS | Encounter Summary ---
Author Organization [facility] Address [address] [place] [address] Phone Care Team Providers Care Restrictive Preparation Operator Name Role Phone Soco Aelxis VALIDATION SPECIALIST Unavailable [phone] Rachana Otto MD Primary Care Provider [phone] Paco Jean MD, MPH Unavailable [phone] Guru Glynn MD Unavailable Soco Alexis VALIDATION SPECIALIST Primary Care Provider Keily Maldonado AERIAL SPRAYER Unavailable Cassi CarpenterC Unavailable pnkristel Azra South RN Unavailable Nico Patel MD Unavailable Paco Jean MD, MPH Unavailable [phone] Ro HardinW Unavailable abdirashid Myranda Lloyd Unavailable [email or web address] Stuart Saunders MD Unavailable [phone] Granados, Glenna B FOUNDRY EQUIPMENT MECHANIC Unavailable Rachana Otto MD Primary Care Provider Rachana Otto MD Primary Care Provider [phone] Ibis Wilson RN Unavailable Luisa Vegaan Unavailable Moni Argueta RN Unavailable [phone] Pcp, Unknown Primary Care Provider Unavailabl e Soco Alexis NP Primary Care Provider [phone] Encounter Details Date Type Department Care Team (Late Contact Info) Description 12/08/2021 Transcribe Orders Virtual Department [address] [place] [address] Soco Alexis, VALIDATION SPECIALIST 230 [place] [address] Social History Tobacco Use Types Packs/Day Years [...] (Late Contact Info) Description 02/17/2025 Procedure Pass [facility] 30 [place] [address] 03/16/2025 8:00 AM EST Telemedicine [facility] 32 [facility], 9th Floor, [address] [place] [address] Krysta Villagomez, [facility] 32 [facility] [address] [place] [address] [email or web address] 10/19/2025 12:30 PM EDT Appointment [facility] [address] [place] [address] Soco Alexis, VALIDATION SPECIALIST 230 [facility] [place] [address] documented as of this encounter Visit Diagnoses [...] documented as of this encounter Care Teams Restrictive Preparation Operator Relationship Specialty Start Date End Date Rachana Otto MD [email or web address] PCP - General Family Medicine 02/25/20 01/25/22 Soco Alexis VALIDATION SPECIALIST PCP - General Family Medicine 01/26/22 03/13/23 Rachana Otto MD 30 [place] [address] [email or web address] PCP - General Family Medicine 03/14/23 05/30/23 Rachana Otto MD [address] [place] [phone] [email or web address] PCP - General Family Medicine 05/31/23 10/20/24 Pcp, Unknown PCP - General 11/11/24 12/01/24 Soco Alexis VALIDATION SPECIALIST [address] [place] [address] PCP - General Nurse Practitioner 12/02/24 Soco Alexis VALIDATION SPECIALIST 03/02/17 12/01/24 Paco Jean MD, MPH 70 [place], [place] [phone] Insurance Assigned Provider 03/12/22 07/15/22 Guru Glynn MD [address] [place] [address] [address] [place] [address] [email or web address] Primary Oncologist Medical Oncology 01/24/22 05/09/23 Keily Maldonado CNP [address] [place] [address] [email or web address] Nurse Practitioner Medical Oncology 02/16/22 Cassi Carpenter PA-C [address] [place] [address] [email or web address] Physician Sign Erector Medical Oncology 03/22/22 08/14/24 Azra South RN [address] [place] [address] [email or web address] PHCM Senior Radiation Protection Technician 05/09/22 04/08/24 Nico Patel MD [address] [place] [address] [email or web address] Primary Oncologist Hematology 07/13/22 Paco Jean MD, MPH [address] [place] [address] [email or web address] Insurance Assigned Provider 09/09/22 01/13/23 Ro Hardin LCSW [address] [place] [address] [email or web address] PHCM Sulfuric Acid Plant Supervisor 12/01/22 12/11/22 Myranda Lloyd [address] [place] [address] [email or web address] PHCM Community Vice President Tax 01/16/23 01/17/23 Stuart Saunders MD [address] [place] [address] Primary Oncologist Medical Oncology 01/22/23 Glenna Granados FNP [address] [place] [address] Nurse Practitioner Medical Oncology 03/12/23 08/14/24 Ibis Wilson RN [address] [place] [phone] Primary Infusion Nurse 08/14/23 Luisa Vega [address] [place] [phone] Music Therapist 07/25/24 Moni Argueta RN [address] [place] [address] [email or web address] g Nurse Navigator 08/15/24 documented as of this encounter Additional Source Comments The information contained in this document represents components of the legal health record. It is not the complete legal health record.[facility]
--- OUTSIDE RECORDS SUMMARY | 2025-02-18 17:20 | XMS_ITS | Encounter Summary ---
Author Organization [facility] Address [address] [place] [address] Phone Care Team Providers Care Can Sorter Name Role Phone Soco Alexis FAILURE ANALYSIS TECHNICIAN Unavailable Rachana Otto MD Primary Care Provider [phone] Paco Jean MD, MPH Unavailable [phone] Guru Glynn MD Unavailable Soco Alexis FAILURE ANALYSIS TECHNICIAN Primary Care Provider Keily Maldonado CYCLE COUNTER Unavailable Cassi CarpenterC Unavailable pnkristel Azra South RN Unavailable Nico Patel MD Unavailable [phone] Paco Jean MD, MPH Unavailable [phone] Ro HardinW Unavailable [email or web address] Myranda Lloyd Unavailable [email or web address] Stuart Saunders MD Unavailable [phone] Granados, Glenna B ANIMAL HEALTH TECHNICIAN Unavailable [phone] Rachana Otto MD Primary Care Provider [phone] Rachana Otto MD Primary Care Provider [phone] Ibis Wilson RN Unavailable Luisa Vega Unavailable [phone] Moni Argueta RN Unavailable [phone] Pcp, Unknown Primary Care Provider UnavailSoco Hodge NP Primary Care Provider [phone] Reason for Referral * MRI/CAT Scan - Closed Specialty Diagnoses / Procedures Referred By Contac t Referred To Contact Radiology Diagnoses Pain in left ankle and joints of left foot Procedures MRI Ankle (Left) CHG MRI LOWER EXTREM JT, W/O CONTRAST Shashi Zabala MD Phone: tel: fax: [email or web address] Referral ID Status Reason Start Date Expiration Date Visits Re quested Visits Authorized [id number] Closed 01/27/2021 03/28/2021 1 1 Encounter Details Date Type Department Care Team (Latest Contact Info) Description 01/27/2021 Transcribe Orders Virtual Department [address] [place] [address] Shashi Zabala MD [address] [place] [address] Pain in left ankle and joints of left foot (Primary Dx) Social History Tobacco Use Types [...] Contact Info) Description 02/17/20[address] [address] 03/16/2025 8:00 AM EST Telemedicine [facility] 32 [facility], 9th Floor, [address] [place] [address] Krysta Villagomez FNP 32 [facility] [address]YAW 9 [place] [address] 10/19/2025 12:30 PM EDT Appointment [address] [address] Soco Alexis, FAILURE ANALYSIS TECHNICIAN 230 [place] [address] documented as of this encounter Results * MRI ANKLE WITHOUT CONTRAST (LEFT) (02/14/2021 9:01 AM EDT) Anatomical Region Laterality Modality Ankle Left Magnetic Resonan ce 02/14/2021 9:04 AM EDT Impressions 02/14/2021 9:13 AM EDT Findings consistent with mild strain/ongoing tendinopathy of the distal Achilles tendon mild peritendinitis. No other internal derangement regionally identified to account for pain. Narrative 02/14/2021 9:13 AM EDT HISTORY: Left ankle pain failing conservative management including physical therapy COMPARISON: None TECHNIQUE: Exam performed on a 1.5 [place] high-field MRI scanner. Axial T1, T2 and STIR; coronal proton density with fat suppression, sagittal T1 and STIR sequences were obtained. FINDINGS: There is a small amount of thickening and abnormal signal within the distal Achilles tendon. There is also small amount of fluid around it consistent with mild peritendinitis. No osteochondral lesions identified. No cartilage loss or prominent effusion. There is small amount of fluid in the joint. There is thickening of the anterior talofibular ligament but it is intact, consistent with prior sprains. Posterior talofibular ligament intact. Calcaneofibular ligament unremarkable in the visualized proximal portions. Lateral ankle tendons and medial ankle tendons demonstrate no abnormal signal or morphology. Sinus tarsi signal preserved. No masses. No extensor compartment abnormality seen. No worrisome marrow signal changes. Small amounts of fluid near the plantar fascial insertion but no active erosion. Procedure Note David Corea MD - 02/14/2021 HISTORY: Left ankle pain failing conservative management includingphysical therapy COMPARISON: None TECHNIQUE: Exam performed on a 1.5 [place] high-field MRI scanner. AxialT1, T2 and STIR; coronal proton density with fat suppression, sagittal T1and STIR sequences were obtained. FINDINGS: There is a small amount of thickening and abnormal signal within thedistal Achilles tendon. There is also small amount of fluid around itconsistent with mild peritendinitis. No osteochondral lesions identified. No cartilage loss or prominenteffusion. There is small amount of fluid in the joint. There is thickening of the anterior talofibular ligament but it is intact,consistent with prior sprains. Posterior talofibular ligament intact.Calcaneofibular ligament unremarkable in the visualized proximalportions. Lateral ankle tendons and medial ankle tendons demonstrate no abnormalsignal or morphology. Sinus tarsi signal preserved. No masses. No extensor compartmentabnormality seen. No worrisome marrow signal changes. Small amounts offluid near the plantar fascial insertion but no active erosion. IMPRESSION: Findings consistent with mild strain/ongoing tendinopathy of the distalAchilles tendon mild peritendinitis. No other internal derangementregionally identified to account for pain. Shashi Zabala MD IMG MR EXTREMITY Final Resul t documented in this encounter Visit Diagnoses Diagnosis Pain in left ankle and joints of left foot- Primary Pain in left ankle and joints of left foot documented in this encounter Additional Health Concerns [...] documented as of this encounter Care Teams Can Sorter Relationship Specialty Start Date End Date Rachana Otto MD PCP - General Family Medicine 02/25/20 01/25/22 Soco Alexis FAILURE ANALYSIS TECHNICIAN PCP - General Family Medicine 01/26/22 03/13/23 Rachana Otto MD 30 [place] [address] PCP - General Family Medicine 03/14/23 05/30/23 Rachana Otto MD [address] [place] [phone] [email or web address] PCP - General Family Medicine 05/31/23 10/20/24 Pcp, Unknown PCP - General 11/11/24 12/01/24 Soco Alexis FAILURE ANALYSIS TECHNICIAN 230 [place] [address] PCP - General Nurse Practitioner 12/02/24 Soco Alexis FAILURE ANALYSIS TECHNICIAN 03/02/17 12/01/24 Paco Jean MD, MPH [address] [place] [address] Insurance Assigned Provider 03/12/22 07/15/22 Guru Glynn MD [address] [place] [address] [address] [place] [address] [email or web address] Primary Oncologist Medical Oncology 01/24/22 05/09/23 Keily Maldonado CYCLE COUNTER 30 [place] [address] Nurse Practitioner Medical Oncology 02/16/22 Cassi Carpenter PA-C [address] [place] [address] [email or web address] Physician Design Maker Medical Oncology 03/22/22 08/14/24 Azra South, OLIVIA [address] [place] [address] PHCM Carpenters Helper 05/09/22 04/08/24 Nico Patel MD [address] [place] [address] [address] [place] [address] Primary Oncologist Hematology 07/13/22 Paco Jean MD, MPH 70 [place] [address] Insurance Assigned Provider 09/09/22 01/13/23 Ro Hardin LCSW [address] [place] [address] PHCM Jacker 12/01/22 12/11/22 Myranda Lloyd [address] [place] [address] [email or web address] PHCM Community Drug Enforcement Administration Agent 01/16/23 01/17/23 Stuart Saunders MD 30 [place] [address] Primary Oncologist Medical Oncology 01/22/23 Glenna Granados, ANIMAL HEALTH TECHNICIAN 30 [place] [address] Nurse Practitioner Medical Oncology 03/12/23 08/14/24 Ibis Wilson RN 100 [place] [address] Primary Infusion Nurse 08/14/23 Luisa Vega 100 [place] [address] Music Therapist 07/25/24 Moni Argueta RN 30 [place] [address] [email or web address] Nurse Navigator 08/15/24 documented as of this encounter Additional Source Comments The information contained in this document represents components of the legal health record. It is not the complete legal health record.[facility]
--- OUTSIDE RECORDS SUMMARY | 2025-02-18 17:20 | XMS_ITS | Encounter Summary ---
Author Organization [facility] Address [address] [place] [address] Phone Care Team Providers Care Machinery Engineer Name Role Phone Soco Alexis QUALITY ASSURANCE DIRECTOR Unavailable [phone] Keily Maldonado ELECTRONIC INTEGRATED SYSTEMS MECHANIC Unavailable Nico Patel MD Unavailable Stuart Saunders MD Unavailable [phone] Rachana Otto MD Primary Care Provider Ibsi Wilson RN Unavailable Luisa Vega Unavailable Moni Argueta RN Unavailable Pcp, Unknown Primary Care Provider Unavailabl e Soco Alexis QUALITY ASSURANCE DIRECTOR Primary Care Provider Encounter Details Date Type Department Care Team (Late st Contact Info) Description 10/14/2024 Procedure Pass [facility] [place] [address] [facility], 6th [place] [address] Social History Tobacco Use Types Packs/Day Years [...] 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, 9th Floor, [address] [place] [address] Krysta Villagomez FNP 32 [facility] [address]YAW 9 [place] [address] [email or web address] 10/19/2025 12:30 PM EDT Appointment [address] [address] Soco Alexis, QUALITY ASSURANCE DIRECTOR 230 [place] [address] documented as of this encounter Visit Diagnoses [...] documented as of this encounter Care Teams Machinery Engineer Relationship Specialty Start Date End Date Rachana Otto MD [address] [place] [address] [place] [address] [email or web address] PCP - General Family Medicine 05/31/23 10/20/24 Pcp, Unknown PCP - General 11/11/24 12/01/24 Soco Alexis, QUALITY ASSURANCE DIRECTOR [address] [place] [address] PCP - General Nurse Practitioner 12/02/24 Soco Alexis, QUALITY ASSURANCE DIRECTOR 03/02/17 12/01/24 Keily Maldonado CNP [address] [place] [address] [email or web address] Nurse Practitioner Medical Oncology 02/16/22 Nico Patel MD [address] [place] [address] [email or web address] Primary Oncologist Hematology 07/13/22 Stuart Saunders MD 30 [place] [address] [email or web address] Primary Oncologist Medical Oncology 01/22/23 Ibis Wilson, OLIVIA [address] [place] [phone] Primary Infusion Nurse 08/14/23 Luisa Vega 100 [place] [address] Music Therapist 07/25/24 Moni Argueta RN [address] [place] [address] [email or web address] Nurse Navigator 08/15/24 documented as of this encounter Additional Source Comments The information contained in this document represents components of the legal health record. It is not the complete legal health record.[facility]
--- OUTSIDE RECORDS SUMMARY | 2025-02-18 17:20 | XMS_ITS | Encounter Summary ---
Author Organization [facility] Address [address] [place] [address] Phone Care Team Providers Care [employer] Auto Repair Teacher Name Role Phone Keily Maldonado INSTRUMENT AND ELECTRICAL TECHNICIAN Unavailable Nico Patel MD Unavailable Stuart Saunders MD Unavailable [phone] Ibis Wilson RN Unavailable Luisa Vega Unavailable [phone] Moni Argueta RN Unavailable [phone] Soco Alexis NP Primary Care Provider [phone] Encounter Details Date Type Department Care Team (Late st Contact Info) Description 01/01/2025 Procedure Pass [facility] 30 [place], [place] [phone] Social History Tobacco Use Types Packs/Day Years [...] 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 file documented as of this encounter Plan of Treatment Upcoming Encounters Date Type Department Care Team (Late st Contact Info) Description 02/17/2025 Procedure Pass [address] [address] 03/16/2025 8:00 AM EST Telemedicine [facility] 32 [facility], 9th Floor, [address] [place] [address] Krysta Villagomez FNP 32 [facility] [address] 9 [place] [address] 10/19/2025 12:30 PM EDT Appointment [address] [address] Soco Alexis NP [address] [place] [address] documented as of this encounter Visit Diagnoses Not on filedocumented in this encounter Additional Health Concerns Assessment Noted Time PHQ-2 Depression Total Score: 2 05/17/19 23 10:19 AM EST documented as of this encounter Care Teams [employer] Auto Repair Teacher Relationship Specialty Start Date End Date Soco Alexis NP [address] [place] [address] PCP - General Nurse Practitioner 12/02/24 Keily Maldonado CNP [address] [place] [address] [email or web address] Nurse Practitioner Medical Oncology 02/16/22 Nico Patel MD 55 [facility] 9[address] [place] [address] [email or web address] Primary Oncologist Hematology 07/13/22 Stuart Saunders MD [address] [place] [address] [email or web address] Primary Oncologist Medical Oncology 01/22/23 Ibis Wilson, OLIVIA [address] [place] [address] [email or web address] Primary Infusion Nurse 08/14/23 Luisa Vega [address] [place] [phone] [email or web address] Music Therapist 07/25/24 Moni Argueta RN [address] [place] [address] [email or web address] Nurse Navigator 08/15/24 documented as of this encounter Additional Source Comments The information contained in this document represents components of the legal health record. It is not the complete legal health record.[facility]
--- OUTSIDE RECORDS SUMMARY | 2025-02-18 17:20 | XMS_ITS | Encounter Summary ---
Author Organization [facility] Address [address] [place] [address] Phone Care Team Providers Care Cop Examiner Name Role Phone Soco Alexis MAPPING ENGINEER Unavailable [phone] Rachana Otto MD Primary Care Provider [phone] Paco Jean MD, MPH Unavailable [phone] Guru Glynn MD Unavailable Soco Alexis MAPPING ENGINEER Primary Care Provider Keily Maldonado LIVESTOCK BROKER Unavailable Cassi CarpenterC Unavailable pnkristel Azra South RN Unavailable Nico Patel MD Unavailable Paco Jean MD, MPH Unavailable [phone] Ro HardinW Unavailable [email or web address] Myranda Lloyd Unavailable [email or web address] Stuart Saunders MD Unavailable [phone] Granados, Glenna B CARBON FURNACE OPERATOR Unavailable [phone] Rachana Otto MD Primary Care Provider [phone] Rachana Otto MD Primary Care Provider [phone] Ibis Wilson RN Unavailable MelinaLuisa tomlinsonan Unavailable [phone] Moni Argueta RN Unavailable [phone] Pcp, Unknown Primary Care Provider UnavailSoco Hodge NP Primary Care Provider [phone] Encounter Details Date Type Department Care Team (Late st Contact Info) Description 08/04/2021 Ancillary Orders [facility] 30 [place] [address] System, Provider Not In, [place] [address] Social History Tobacco Use Types Packs/Day Years [...] Contact Info) Description 02/17/2025 Procedure Pass [facility], [facility] 30 [place] [address] 03/16/2025 8:00 AM EST Telemedicine [facility] 32 [facility], 9th Floor, [address] [place] [address] Krysta Villagomez, CARBON FURNACE OPERATOR 32 [facility] [address] 9 [place] [address] 10/19/2025 12:30 PM EDT Appointment [facility] [address] [place] [address] Soco Alexis, JADE 230 [place] [address] documented as of this encounter Results * XR Chest Outside (No Interpretation) (07/08/2021 12:00 AM EST) Narrative SYSTEMGENERATED, DOCUMENTATION - 08/04/2021 10:01 AM EDT This study is for PACS storage only and not for interpretation. us Provider Not In System PhD IMG OUTSIDE IMAGING W /OUT INTERPRETATION Final Result documented in this encounter Visit Diagnoses Not on filedocumented [...] documented as of this encounter Care Teams Cop Examiner Relationship Specialty Start Date End Date Rachana Otto MD [email or web address] PCP - General Family Medicine 02/25/20 01/25/22 Soco Alexis, MAPPING ENGINEER PCP - General Family Medicine 01/26/22 03/13/23 Rachana Otto MD 30 [place] [address] [email or web address] PCP - General Family Medicine 03/14/23 05/30/23 Rachana Otto MD [address] [place] [address] [place] [phone] [email or web address] PCP - General Family Medicine 05/31/23 10/20/24 Pcp, Unknown PCP - General 11/11/24 12/01/24 Soco Alexis, MAPPING ENGINEER [address] [place] [address] PCP - General Nurse Practitioner 12/02/24 Soco Alexis MAPPING ENGINEER 03/02/17 12/01/24 Paco Jean MD, MPH 70 [place] [address] [email or web address] Insurance Assigned Provider 03/12/22 07/15/22 Guru Glynn MD [address] [place] [address] [address] [place] [address] [email or web address] Primary Oncologist Medical Oncology 01/24/22 05/09/23 Keily Maldonado CNP 30 [place] [address] [email or web address] Nurse Practitioner Medical Oncology 02/16/22 Cassi Carpenter PA-C [address] [place] [address] [email or web address] Physician Physiognomist Medical Oncology 03/22/22 08/14/24 Azra South RN [address] [place] [address] [email or web address] PHCM Drain Tile Machine Operator 05/09/22 04/08/24 Nico Patel MD [address] [place] [address] [email or web address] Primary Oncologist Hematology 07/13/22 Paco Jean MD, MPH 70 [place] [address] Insurance Assigned Provider 09/09/22 01/13/23 Ro Hardin, CHARGE AUTHORIZER [address] [place] [address] PHCM Patient Appointment Coordinator 12/01/22 12/11/22 Myranda Lloyd [address] [place] [address] [email or web address] PHCM Community Horse Doctor 01/16/23 01/17/23 Stuart Saunders MD [address] [place] [address] Primary Oncologist Medical Oncology 01/22/23 Glenna Granados, CARBON FURNACE OPERATOR [address] [place] [address] Nurse Practitioner Medical Oncology 03/12/23 08/14/24 Ibis Wilson RN [address] [place] [phone] Primary Infusion Nurse 08/14/23 Luisa Vega [address] [place] [phone] Music Therapist 07/25/24 Moni Argueta RN [address] [place] [phone] [email or web address] Nurse Navigator 08/15/24 documented as of this encounter Additional Source Comments The information contained in this document represents components of the legal health record. It is not the complete legal health record.[facility]
--- OUTSIDE RECORDS SUMMARY | 2025-02-18 17:20 | XMS_ITS | Encounter Summary ---
Author Organization [facility] Address [address] [place] [address] Phone Care Team Providers Care Nuclear Plant Operator Name Role Phone Keily Maldonado SALES ORDER COORDINATOR Unavailable Nico Patel MD Unavailable [phone] Stuart Saunders MD Unavailable [phone] Ibis Wilson RN Unavailable Luisa Vega Unavailable [phone] Moni Argueta RN Unavailable [phone] Soco Alexis NP Primary Care Provider [phone] Encounter Details Date Type Department Care Team (Late st Contact Info) Description 12/17/2024 Procedure Pass [facility] [place] [place] MARK 4 ENDO DEPT 55 [facility], 4th [place] [address] Social History Tobacco Use Types Packs/Day Years [...] st Contact Info) Description 02/17/2025 Procedure Pass [address] [address] 03/16/2025 8:00 AM EST Telemedicine [facility] [place] [place] [facility] 32 [facility], 9th Floor, [address] [place] [address] Krysta Villagomez FNP 32 [facility] [address] 9 [place] [address] 10/19/2025 12:30 PM EDT Appointment [address] [address] Soco Alexis NP [address] [place] [address] documented as of this encounter Visit Diagnoses Not on filedocumented in this encounter Additional Health Concerns Assessment Noted Time PHQ-2 Depression Total Score: 2 05/17/19 23 10:19 AM EST documented as of this encounter Care Teams Nuclear Plant Operator Relationship Specialty Start Date End Date Soco Alexis NP [address] [place] [address] PCP - General Nurse Practitioner 12/02/24 Keily Maldonado CNP [address] [place] [address] Nurse Practitioner Medical Oncology 02/16/22 Nico Patel MD 55 [facility] Y[address] [place] [address] [email or web address] Primary Oncologist Hematology 07/13/22 Stuart Saunders MD 30 [place] [address] [email or web address] Primary Oncologist Medical Oncology 01/22/23 Ibis Wilson RN [address] [place] [phone] [email or web address] Primary Infusion Nurse 08/14/23 Luisa Vega [address] [place] [phone] [email or web address] Music Therapist 07/25/24 Moni Argueta RN [address] [place] [address] [email or web address] Nurse Navigator 08/15/24 documented as of this encounter Additional Source Comments The information contained in this document represents components of the legal health record. It is not the complete legal health record.[facility]
--- OUTSIDE RECORDS SUMMARY | 2025-02-18 17:20 | XMS_ITS | Encounter Summary ---
Author Organization [facility] Address [address] [facility] [address] [place] [address] Phone Care Team Providers Care Investigative Shopper Name Role Phone Keily Maldonado TUBE SKIVER Unavailable Nico Patel MD Unavailable [phone] Stuart Saunders MD Unavailable [phone] Ibis Wilson RN Unavailable Luisa Vega Unavailable [phone] Moni Argueta RN Unavailable [phone] Soco Alexis NP Primary Care Provider [phone] Encounter Details Date Type Department Care Team (Late st Contact Info) Description 12/02/2024 Ancillary Orders [facility], X-Ray - [facility] [address] [place] [address] Soco Alexis NP [address] [place], [place] [phone] Acute pain of right shoulder (Primary Dx); Chest pain varying with breathing Social History Tobacco Use Types Packs/Day Years [...] 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 file documented as of this encounter Plan of Treatment Upcoming Encounters Date Type Department Care Team (Late st Contact Info) Description 02/17/2025 Procedure Pass [address] [address] 03/16/2025 8:00 AM EST Telemedicine [facility] [address] [facility], 9th Floor, [address] [place] [address] Krysta Villagomez FNP 32 [facility] [address] [place] [address] [email or web address] 10/19/2025 12:30 PM EDT Appointment [address] [address] Soco Alexis, BESSEMER REGULATOR [address] [place] [address] documented as of this encounter Results * XR RIBS 3 OR MORE VIEWS WITH PA CHEST (RIGHT) (12/02/2024 12:00 PM EDT) Anatomical Region Laterality Modality Chest Computed Radiogr aphy 12/03/2024 10:0 8 AM EDT Impressions 12/03/2024 10:11 AM EDT No displaced right-sided rib fracture identified. Narrative 12/03/2024 10:11 AM EDT XR RIBS 3 OR MORE VIEWS WITH PA CHEST (RIGHT) Referring clinician's provided indication for this examination in [facility]: Pain COMPARISON: 10/13/2024 FINDINGS: No displaced right-sided [...] clinician's provided indication for this examination in [facility]:Pain COMPARISON: 10/13/2024 FINDINGS: No displaced right-sided rib fracture identified. PA evaluation of the chest performed. Lung volumes are low. No convincingevidence for lobar pneumonia or pulmonary edema. No significant pleuraleffusions or pneumothorax. Cardiac mediastinal silhouette appears stable.Right-sided chest port with distal tip near the atrial caval junction.. IMPRESSION: No displaced right-sided rib fracture identified. us Soco Alexis NP IMG XR CHEST Final Result documented in this encounter Visit Diagnoses Diagnosis Acute pain of right shoulder- Primary Chest pain varying with breathing Acute pain of right shoulder Chest pain varying with breathing documented in this encounter Additional Health Concerns Assessment Noted Time PHQ-2 Depression Total Score: 2 05/17/19 23 10:19 AM EST documented as of this encounter Care Teams Investigative Shopper Relationship Specialty Start Date End Date Soco Alexis NP [address] [place] [address] PCP - General Nurse Practitioner 12/02/24 Keily Maldonado CNP [address] [place] [address] Nurse Practitioner Medical Oncology 02/16/22 Nico Patel MD [address] [place] [address] [email or web address] Primary Oncologist Hematology 07/13/22 Stuart Saunders MD [address] [place] [address] [email or web address] Primary Oncologist Medical Oncology 01/22/23 Ibis Wilson, OLIVIA [address] [place] [phone] [email or web address] Primary Infusion Nurse 08/14/23 Luisa Vega [address] [place] [phone] [email or web address] Music Therapist 07/25/24 Moni Argueta RN [address] [place] [address] [email or web address] Nurse Navigator 08/15/24 documented as of this encounter Additional Source Comments The information contained in this document represents components of the legal health record. It is not the complete legal health record.[facility]
--- OUTSIDE RECORDS SUMMARY | 2025-02-18 17:20 | XMS_ITS | Encounter Summary ---
Author Organization [facility] Address [address] [place] [address] Phone Care Team Providers Care Data Processing Manager Name Role Phone Soco Alexis TYRE RETREADER Unavailable [phone] Keily Maldonado NETWORK PROJECT MANAGER Unavailable Nico Patel MD Unavailable [phone] Stuart Saunders MD Unavailable [phone] Ibis Wilson RN Unavailable Luisa Vega Unavailable [phone] Moni Argueta RN Unavailable Pcp, Unknown Primary Care Provider Unavailabl e Soco Alexis TYRE RETREADER Primary Care Provider Encounter Details Date Type Department Care Team (Late st Contact Info) Description 11/18/2024 Procedure Pass [address] [address] Social History Tobacco Use Types Packs/Day Years [...] Contact Info) Description 02/17/2025 Procedure Pass [address] [address] 03/16/2025 8:00 AM EST Telemedicine [facility] [address] [place] [address], 9th Floor, [address] [place] [address] Krysta Villagomez FNP 32 [facility] [address] [place] [address] [email or web address] 10/19/2025 12:30 PM EDT Appointment [address] [address] Soco Alexis NP [address] [place] [address] documented as of this encounter Visit Diagnoses Not on filedocumented in this encounter Additional Health Concerns Assessment Noted Time PHQ-2 Depression Total Score: 2 05/17/19 23 10:19 AM EST documented as of this encounter Care Teams Data Processing Manager Relationship Specialty Start Date End Date Pcp, Unknown PCP - General 11/11/24 12/01/24 Soco Alexis NP [address] [place] [address] PCP - General Nurse Practitioner 12/02/24 Soco Alexis NP 03/02/17 12/01/24 Keily Maldonado CNP [address] [place] [address] [email or web address] Nurse Practitioner Medical Oncology 02/16/22 Nico Patel MD [address] [place] [address] [address] [place] [address] [email or web address] Primary Oncologist Hematology 07/13/22 Stuart Saunders MD [address] [place] [address] [email or web address] Primary Oncologist Medical Oncology 01/22/23 Ibis Wilson RN [address] [place] [phone] [email or web address] Primary Infusion Nurse 08/14/23 Luisa Vega [address] [place] [address] Music Therapist 07/25/24 Moni Argueta RN [address] [place] [address] [email or web address] Nurse Navigator 08/15/24 documented as of this encounter Additional Source Comments The information contained in this document represents components of the legal health record. It is not the complete legal health record.[facility]
--- OUTSIDE RECORDS SUMMARY | 2025-02-18 17:20 | XMS_ITS | Encounter Summary ---
Author Organization [facility] Address [address] [place] [address] Phone Care Team Providers Care Tool Room Machinist Name Role Phone Soco Alexis FURNACE CHECKER Unavailable [phone] Rachana Otto MD Primary Care Provider [phone] Paco Jean MD, MPH Unavailable [phone] Guru Glynn MD Unavailable Soco Alexis FURNACE CHECKER Primary Care Provider Keily Maldonado TOUCH UP CARVER Unavailable Cassi CarpenterC Unavailable pnkristel Azra South RN Unavailable Nico Patel MD Unavailable [phone] Paco Jean MD, MPH Unavailable [phone] Ro HardinW Unavailable [email or web address] Myranda Lloyd Unavailable [email or web address] Stuart Saunders MD Unavailable [phone] Granados, Glenna B MATCH MARKER Unavailable [phone] Rachana Otto MD Primary Care Provider [phone] Rachana Otto MD Primary Care Provider [phone] Ibis Wilson RN Unavailable MelinaLuisa [email or web address] Unavailable [phone] Moni Argueta RN Unavailable [phone] Pcp, Unknown Primary Care Provider UnavailSoco Hodge NP Primary Care Provider [phone] Encounter Details Date Type Department Care Team (Late st Contact Info) Description 04/07/2020 Procedure Pass [facility] Endoscopy Admitting Dept Virtual Department [address] [place] [address] Social History Tobacco Use Types Packs/Day Years [...] st Contact Info) Description 02/17/2025 Procedure Pass [address] [address] 03/16/2025 8:00 AM EST Telemedicine [facility] [address] [place] [address], 9th Floor, [address] [place] [address] Krysta Villagomez, [facility] 32 [facility] [address] [place] [address] [email or web address] 10/19/2025 12:30 PM EDT Appointment [address] [place] [address] Soco Alexis, FURNACE CHECKER [address] [place] [address] documented as of this encounter Visit Diagnoses [...] documented as of this encounter Care Teams Tool Room Machinist Relationship Specialty Start Date End Date Rachana Otto MD [email or web address] PCP - General Family Medicine 02/25/20 01/25/22 Soco Alexis FURNACE CHECKER PCP - General Family Medicine 01/26/22 03/13/23 Rachana Otto MD [address] [place] [address] [email or web address] PCP - General Family Medicine 03/14/23 05/30/23 Rachana Otto MD [address] [place] [address] [place] [address] [email or web address] PCP - General Family Medicine 05/31/23 10/20/24 Pcp, Unknown PCP - General 11/11/24 12/01/24 Soco Alexis FURNACE CHECKER [address] [place] [address] PCP - General Nurse Practitioner 12/02/24 Soco Alexis FURNACE CHECKER 03/02/17 12/01/24 Paco Jean MD, MPH [address] [place], [place] [phone] Insurance Assigned Provider 03/12/22 07/15/22 Guru Glynn MD [address] [place] [address] [address] [place] [address] [email or web address] Primary Oncologist Medical Oncology 01/24/22 05/09/23 Keily Maldonado CNP [address] [place] [address] [email or web address] Nurse Practitioner Medical Oncology 02/16/22 Cassi Carpenter PA-C [address] [place] [address] [email or web address] Physician Booking Agent Medical Oncology 03/22/22 08/14/24 Azra South RN [address] [place] [address] [email or web address] PHCM Materials Handling Equipment Operator 05/09/22 04/08/24 Nico Patel MD [address] [place] [address] [email or web address] Primary Oncologist Hematology 07/13/22 Paco Jean MD, MPH [address] [place] [address] [email or web address] Insurance Assigned Provider 09/09/22 01/13/23 Ro Hardin LCSW [address] [place] [address] [email or web address] PHCM Photographic Hand Developer 12/01/22 12/11/22 Myranda Lloyd [address] [place] [address] [email or web address] PHCM Community Shaper Setter 01/16/23 01/17/23 Stuart Saunders MD [address] [place] [address] Primary Oncologist Medical Oncology 01/22/23 Glenna Granados, MATCH MARKER [address] [place] [address] Nurse Practitioner Medical Oncology 03/12/23 08/14/24 Ibis Wilson RN [address] [place] [phone] Primary Infusion Nurse 08/14/23 Luisa Vega [address] [place] [phone] Music Therapist 07/25/24 Moni Argueta, OLIVIA [address] [place] [address] [email or web address] Nurse Navigator 08/15/24 documented as of this encounter Additional Source Comments The information contained in this document represents components of the legal health record. It is not the complete legal health record.[facility]
--- OUTSIDE RECORDS SUMMARY | 2025-02-18 17:20 | XMS_ITS | Encounter Summary ---
Author Organization [facility] Address [address] [place] [address] Phone Care Team Providers Care Publication Director Name Role Phone Soco Alexis MANAGER STARS Unavailable [phone] Keily Maldonado BISTRO ATTENDANT Unavailable Nico Patel MD Unavailable Stuart Saunders MD Unavailable [phone] Ibis Wilson RN Unavailable Luisa Vega Unavailable Moni Argueta RN Unavailable Pcp, Unknown Primary Care Provider Unavailabl Soco Osullivan MANAGER STARS Primary Care Provider [phone] Reason for Referral * MRI/CAT Scan - Closed Specialty Diagnoses / Procedures Referred By Mike t Referred To Contact Radiology Diagnoses Spondylosis without myelopathy or radiculopathy, lumbar region Procedures MRI Lumbar Spine Marilu Andrew NP [address] [place] [phone] Phone: tel: fax: [email or web address] Referral ID Status Reason Start Date Expiration Date Visits Re quested Visits Authorized [id number] Closed 11/18/2024 11/18/2025 1 1 Encounter Details Date Type Department Care Team (Latest Contact Info) Description 11/18/2024 Transcribe Orders Virtual Department [address] [place] [address] Marilu Andrew NP [address] [place] [phone] [email or web address] Spondylosis without myelopathy or radiculopathy, lumbar region (Primary Dx) Social History Tobacco Use Types [...] st Contact Info) Description 02/17/2025 Procedure Pass [address] [address] 03/16/2025 8:00 AM EST Telemedicine [facility] 32 [facility], 9th Floor, [address] [place] [address] Krysta Villagomez FNP 32 [facility] [address] [place] [address] 10/19/2025 12:30 PM EDT Appointment [facility] [address] [place] [address] Soco Alexis, MANAGER STARS [address] [place] [address] documented as of this encounter Results * MRI LUMBAR SPINE (NEURO) WITH AND [...] STIR sequence. Discs and Endplates: There is pegm-[id number]-gpvuycvy loss of disc height and signal at [...] the STIRsequence. Discs and Endplates: There is sueh-tn-fdasmiuv loss of disc height andsignal at L4-L5. [...] stenosis or high-grade foramina stenosis. Marilu Andrew NP IMG MR XSPECIALTY Final Result documented in this encounter Visit Diagnoses Diagnosis Spondylosis without myelopathy or radiculopathy, lumbar region- Primary Spondylosis without myelopathy or radiculopathy, lumbar region documented in this encounter Additional Health Concerns Assessment Noted Time PHQ-2 Depression Total Score: 2 05/17/19 23 10:19 AM EST documented as of this encounter Care Teams Publication Director Relationship Specialty Start Date End Date Pcp, Unknown PCP - General 11/11/24 12/01/24 Soco Alexis NP [address] [place] [address] PCP - General Nurse Practitioner 12/02/24 Soco Alexis NP 03/02/17 12/01/24 Keily Maldonado CNP [address] [place] [address] [email or web address] Nurse Practitioner Medical Oncology 02/16/22 Nico Patel MD [address] [place] [address] [address], [place] [address] [email or web address] Primary Oncologist Hematology 07/13/22 Stuart Saunders MD [address] [place] [address] Primary Oncologist Medical Oncology 01/22/23 Ibis Wilson, OLIVIA [address] [place] [phone] Primary Infusion Nurse 08/14/23 Luisa Vega 100 [place] [phone] Music Therapist 07/25/24 Moni Argueta RN [address] [place] [address] [email or web address] Nurse Navigator 08/15/24 documented as of this encounter Additional Source Comments The information contained in this document represents components of the legal health record. It is not the complete legal health record.[facility]
== END 2025-02-18 13:35 | disposition home or self-care (01) ==
LOC: HO.LNP 13:34
PROVIDERS: Visit Provider Nurse Practitioner Family
DX: Z12.4 Encounter for screening for malignant neoplasm of cervix (principal); Z11.51 Encounter for screening for human papillomavirus (HPV)
CPT/HCPCS: 87626; 88175

== ENCOUNTER 2025-02-26 13:02 | Outpatient (REF) | payer MEDICARE, MEDICAID, SELFPAY ==
--- NOTE | ~2025-02-26 | XR_ITS ---
EXAMINATION: X-ray bilateral shoulders CLINICAL INFORMATION: Primary osteoarthritis COMPARISON: None TECHNIQUE: Right shoulder 4 views. Left shoulder 4 views. FINDINGS: Right shoulder: No evidence of acute fracture, dislocation or suspicious osseous lesion. Glenohumeral joint space is maintained. Acromioclavicular articulation is maintained. No abnormal soft tissue calcification. Left shoulder: No evidence of acute fracture, dislocation or suspicious osseous lesion. No significant glenohumeral joint space narrowing. Acromioclavicular articulation is maintained. No abnormal soft tissue calcification. XR/XR Shoulder Donnie min 2V IMPRESSION: No radiographic evidence of acute osseous findings. Electronically signed by: David Mallory MD 02/27/2025 12:50 PM EDT
== END 2025-02-26 13:03 | disposition home or self-care (01) ==
LOC: HO.XRAY 13:02
PROVIDERS: PCP Nurse Practitioner Family; Visit Provider Anesthesiology
DX: M19.011 Primary osteoarthritis, right shoulder (principal); M19.012 Primary osteoarthritis, left shoulder; M87.9 Osteonecrosis, unspecified; G90.513 Complex regional pain syndrome I of upper limb, bilateral; G62.0 Drug-induced polyneuropathy; T45.1X5A Adverse effect of antineoplastic and immunosuppressive drugs, initial encounter; D89.813 Graft-versus-host disease, unspecified; G89.4 Chronic pain syndrome
CPT/HCPCS: 73030; 99202

== ENCOUNTER 2025-02-26 13:02 | Outpatient (AMB) | payer MEDICARE, MEDICAID, SELFPAY ==
[2025-02-26 13:03] VITALS: BP 123/69; PULSE 88; RESP 16; O2SAT 97; BMI 39.7
--- NOTE | 2025-02-26 13:03 | MHC.OFFVIS ---
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 Required: No Accompanied by: Self / Same As Patient Allergies azithromycin Allergy (Mild, Verified 02/26/25 13:14) Unknown Cephalosporins Allergy (Mild, Verified 02/26/25 13:14) Unknown clindamycin Allergy (Mild, Verified 02/26/25 13:14) Unknown haloperidol Allergy (Mild, Verified 02/26/25 13:14) Unknown lincomycin Allergy (Mild, Verified 02/26/25 13:14) Unknown Penicillins Allergy (Mild, Verified 02/26/25 13:14) Unknown Quinolones Allergy (Mild, Verified 02/26/25 13:14) Unknown HPI Comments Details: Otilia is very pleasant 44 years old female who presents in my office with complains on pain in multiple areas of her body but mostly pain in bilateral shoulders neuropathic pain in bilateral hands and pain in bilateral hips. She reports that she was diagnose with lymphoma in 2021, she was treated with chemotherapy which was not successful, after that she was treated with sequential 2. 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 She consider herself a cancer survivor. 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 She is on permanent disability she is unable to sleep normally, she can not do activities of daily living, she is able to take care of herself but she can not function normally. To treat her pain she tried Tylenol oxycodone and hydromorphone. None of those medications helped her pain is significant doses. She tried PT for the lower back pain and it was minimally effective to control her pain. PT for the lower extremities would be contraindicated because of the possibility of injury or fractures. She had shoulder injections in the past and those injections were minimally helpful for her. 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 She is receiving IVIG every month to prevent septic infections and yet she is suffering from sepsis every year. Surgical history significant only for bone marrow transplant. She denies smoking cigarettes she stopped smoking in 2022. Admits drinking alcohol once a week. She drinks coffee but not soda and she admits consuming cannabis. Review of Systems Const All systems reviewed & are unremarkable except as noted in HPI and below ENT Reports Normal hearing present Neuro Reports Normal hearing present, Denies Abnormal speech present, Denies confusion and Denies Sensory deficit (Neuro) Psych Denies confusion Physical Exam Vital Signs: Last Vital Signs Pulse 88 02/26/25 13:03 Resp 16 02/26/25 13:03 BP 123/69 02/26/25 13:03 Pulse Ox 97 02/26/25 13:03 Oxygen Delivery Method Room Air 02/26/25 13:03 BMI result Body Mass Index 39.7 Const General: no acute distress; No confusion Nutritional Appearance: obese morbidly obese Orientation/consciousness: patient oriented x3 and No confusion Eyes General: appearance normal, both eyes and all related structures Pupils: Equal, round and reactive pupils present EOM: EOMs intact bilaterally Neck Neck: Yes full ROM Chest Chest palpation & inspection: normal inspection of the chest Resp Effort & Inspection: normal respiratory effort, able to speak in complete sentences, normal respiratory pattern, no audible wheezes and no cough Cardio Jugular venous distension: no JVD GI Inspection: Yes normal to inspection Neuro General: patient oriented x3, gait normal and No confusion Cranial nerves: Yes CN's II-XII intact bilaterally, Yes Equal, round and reactive pupils present, Yes Normal hearing present and Yes Ability to bilaterally elevate shoulders present Speech: No Abnormal speech present Gait exam (Neuro): Normal gait present Motor exam (neuro): 5/5 motor strength present throughout Sensory Exam: No Sensory deficit (Neuro) Extrem General: No pedal edema Psych Speech and movement: Normal speech and movement present Affect: normal affect Attitude: cooperative Thought process: Normal thought process present Thought content: Normal thought content present Insight: Good insight present (Psych) Judgement: Good judgement present (Psych) Results Reviewed Results Reviewed: The patient brought the disc from [facility] with the MRI of the lumbar spine. I will upload this disc to our system and then we will see the results. Assessment & Plan Assessment & Plan (1) Osteoarthritis of shoulders, bilateral: Code(s): M19.011 - Primary osteoarthritis, right shoulder; M19.012 - Primary osteoarthritis, left shoulder Category: Medical (2) Osteonecrosis of shoulder region: Code(s): M87.9 - Osteonecrosis, unspecified Category: Medical (3) Complex regional pain syndrome i of upper limb, bilateral: Code(s): G90.513 - Complex regional pain syndrome I of upper limb, bilateral Category: Medical (4) Chemotherapy-induced neuropathy: Code(s): G62.0 - Drug-induced polyneuropathy; T45.1X5A - Adverse effect of antineoplastic and immunosuppressive drugs, initial encounter Category: Medical (5) Gztha-cmjrty-rrjv disease: Code(s): D89.813 - Ecisw-djquxw-sqjy disease, unspecified Category: Medical (6) Chronic pain syndrome: Code(s): G89.4 - Chronic pain syndrome Category: Medical Plan Otilia is very unfortunate 44 years old female who is survival of lymphoma, the treatment was done with bone marrow transplant, now she is suffering from consequences of graft versus host disease as well as consequences of large doses of steroids which caused osteonecrosis. I offered the patient has spinal cord stimulator Media Chaperone alleviate neuropathic pain in bilateral shoulders as well and is in bilateral hands as well as same device alleviating pain in bilateral lower extremities. I will send this patient for bilateral shoulder x-ray to rule out bone marrow induced injury to the shoulders or osteonecrosis of the shoulder bones. I will see this patient in 2 weeks. She was given the template for her psychologist and psychiatrist to perform psychological evaluation for the preparation in spinal cord stimulator trial. Next time in 2 weeks we will discuss the results of the shoulder x-rays. I expect her psychologist or psychiatrist in 2 weeks to prepare the psychological evaluation in preparation of spinal cord stimulator. Orders: Orders XR Shoulder Donnie min 2V Today M19.011 - Primary osteoarthritis, right shoulder, M19.012 - Primary osteoarthritis, left shoulder, M87.9 - Osteonecrosis, unspecified Coding Level of Care Code New Pt Level 3 (54432) Diagnoses Osteoarthritis of shoulders, bilateral M19.011; M19.012 Osteonecrosis of shoulder region M87.9 Complex regional pain syndrome i of upper limb, bilateral G90.513 Chemotherapy-induced neuropathy G62.0; T45.1X5A Ewumm-shgyfl-gvfg disease D89.813 Chronic pain syndrome G89.4
--- OUTSIDE RECORDS SUMMARY | 2025-02-26 16:17 | XMS_ITS | Encounter Summary ---
Author Organization Located Within [facility] Address [address] [place] [address] Phone Care Team Providers Care Information Assistant Name Role Phone Soco Alexis RN ACCESS Unavailable [phone] Keily Maldonado MARKETING PROJECT SPECIALIST Unavailable Cassi CarpenterC Unavailable dylan Azra South RN Unavailable Nico Patel MD Unavailable Stuart Saunders MD Unavailable [phone] Glenna Granados RN ACCESS Unavailable [phone] Rachana Otto MD Primary Care Provider [phone] Ibis Wilson RN Unavailable Luisa Vega Unavailable [phone] Moni Argueta RN Unavailable [phone] Pcp, Unknown Primary Care Provider Unavailabl Soco Osullivan RN ACCESS Primary Care Provider [phone] Encounter Details Date Type Department Care Team (Late st Contact Info) Description 10/03/2023 Procedure Pass [facility], Lunder [address] [facility], 6th [place] [address] Social History Tobacco Use Types Packs/Day Years [...] st Contact Info) Description 02/17/2025 Procedure Pass [facility], [facility] 30 [place] [address] 03/17/2025 1:00 PM EST Infusion [facility] C[facility] FOR B[facility]OW TRANSPLANT 32 [facility], 9th Floor, [address] [place] [address] Nico Patel MD [address] [address] [email or web address] 03/17/2025 2:00 PM EST Office Visit [facility] C[facility] FOR B[facility]OW [facility]ANSPL[facility] [address] [facility], 9th Floor, [address] [place] [address] Krysta Villagomez, GLORY 32 [facility] 9[address] 9 [place] [address] [email or web address] 10/19/2025 12:30 PM EDT Appointment [facility] 30 [place] [address] Soco Alexis, RN ACCESS 230 [place] [address] documented as of this encounter Visit Diagnoses [...] documented as of this encounter Care Teams Information Assistant Relationship Specialty Start Date End Date Rachana Otto MD [address] [place] [address] [place] [phone] [email or web address] PCP - General Family Medicine 05/31/23 10/20/24 Pcp, Unknown PCP - General 11/11/24 12/01/24 Soco Alexis NP [address] [place] [address] PCP - General Nurse Practitioner 12/02/24 Soco Alexis RN ACCESS 03/02/17 12/01/24 Keily Maldonado CNP [address] [place] [address] [email or web address] Nurse Practitioner Medical Oncology 02/16/22 Cassi Carpenter PA-C [address] [place] [address] [email or web address] Physician Historiographer Medical Oncology 03/22/22 08/14/24 Azra South RN [address] [place] [address] [email or web address] Religion Teacher 05/09/22 04/08/24 Nico Patel MD [address] [place] [address] [address] [address] [email or web address] Primary Oncologist Hematology 07/13/22 Stuart Saunders MD [address] [place] [address] [email or web address] Primary Oncologist Medical Oncology 01/22/23 Glenna Granados RN ACCESS [address] [place] [address] [email or web address] Nurse Practitioner Medical Oncology 03/12/23 08/14/24 Ibis Wilson, OLIVIA [address] [place] [phone] [email or web address] Primary Infusion Nurse 08/14/23 Luisa Vega [address] [place] [phone] [email or web address] Music Therapist 07/25/24 Moni Argueta RN 30 [place] [address] [email or web address] Nurse Navigator 08/15/24 documented as of this encounter Additional Source Comments The information contained in this document represents components of the legal health record. It is not the complete legal health record.[facility]
--- OUTSIDE RECORDS SUMMARY | 2025-02-26 16:17 | XMS_ITS | Encounter Summary ---
Author Organization [facility] Address [address] [place] [address] Phone Care Team Providers Care Pier Runner Name Role Phone Soco Alexis CAREER AND GUIDANCE COUNSELOR Unavailable [phone] Erica Keily PARLIAMENTARY COUNSEL Unavailable Cassi CarpenterC Unavailable [email or web address] Azra South RN Unavailable Nico Patel MD Unavailable Stuart Saunders MD Unavailable [phone] Glenna Granados CAREER AND GUIDANCE COUNSELOR Unavailable [phone] Rachana Otto MD Primary Care Provider [phone] Ibis Wilson RN Unavailable Luisa Vega Unavailable [phone] Moni Argueta RN Unavailable [phone] Pcp, Unknown Primary Care Provider Unavailabl Scoo Osullivan CAREER AND GUIDANCE COUNSELOR Primary Care Provider [phone] Encounter Details Date Type Department Care Team (Late st Contact Info) Description 10/02/2023 Procedure Pass [facility] [address] [facility], 4th [place] [address] Social History Tobacco Use Types Packs/Day Years [...] st Contact Info) Description 02/17/2025 Procedure Pass [facility], [facility] 30 [place] [address] 03/17/2025 1:00 PM EST Infusion [facility] CENTER FOR BONE MARROW TRANSPLANT 32 [facility], 9th Floor, [address] [place] [address] Nico Patel MD 55 [facility] 9[place] [address] [email or web address] 03/17/2025 2:00 PM EST Office Visit [facility] C[facility] FOR BONE MARROW TRANSPLANT 32 [facility], 9th Floor, [address] [place] [address] rKysta Villagomez, GLORY 32 [facility] [address] 9 [place] [address] [email or web address] 10/19/2025 12:30 PM EDT Appointment [address] [address] Soco Alexis, CAREER AND GUIDANCE COUNSELOR 230 [place] [address] documented as of this encounter Visit Diagnoses [...] documented as of this encounter Care Teams Pier Runner Relationship Specialty Start Date End Date Rachana Otto MD [address] [place] [address] [place] [phone] [email or web address] PCP - General Family Medicine 05/31/23 10/20/24 Pcp, Unknown PCP - General 11/11/24 12/01/24 Soco Alexis, CAREER AND GUIDANCE COUNSELOR 230 [place] [address] PCP - General Nurse Practitioner 12/02/24 Soco Alexis CAREER AND GUIDANCE COUNSELOR 03/02/17 12/01/24 Keily Maldonado CNP [address] [place] [address] [email or web address] Nurse Practitioner Medical Oncology 02/16/22 Cassi Carpenter PA-C [address] [place] [address] [email or web address] Physician Purchasing Buyer Medical Oncology 03/22/22 08/14/24 Azra South RN [address] [place] [address] [email or web address] PHC Global Commodity Manager 05/09/22 04/08/24 Nico Patel MD [address] [place] [address] [email or web address] Primary Oncologist Hematology 07/13/22 Stuart Saunders MD [address] [place] [address] [email or web address] Primary Oncologist Medical Oncology 01/22/23 Glenna Granados NP [address] [place] [address] [email or web address] Nurse Practitioner Medical Oncology 03/12/23 08/14/24 Ibis Wilson RN [address] [place] [phone] [email or web address] Primary Infusion Nurse 08/14/23 Luisa Vega [address] [place] [phone] Music Therapist 07/25/24 Moni Argueta RN [address] [place] [address] [email or web address] Nurse Navigator 08/15/24 documented as of this encounter Additional Source Comments The information contained in this document represents components of the legal health record. It is not the complete legal health record.[facility]
--- OUTSIDE RECORDS SUMMARY | 2025-02-26 16:17 | XMS_ITS | Encounter Summary ---
Author Organization [employer] Address [address] [place] [address] 7 [place] [address] Care Team Providers Care Fruit And Vegetable Factory Worker Name Role Phone Soco Alexis JADE Primary Care Provider [phone] Encounter Details Date Type Department Care Team (Latest Contact Info) Description 02/23/2025 Travel Social History Tobacco Use Types Packs/Day [...] Description 03/02/2025 3:30 PM EDT Office Visit [facility] 230 [place] [address] Soco Alexis NP 230 [place] [address] documented as of this encounter Visit Diagnoses Not on filedocumented in this encounter Additional Health Concerns Assessment Noted Time PHQ-9 Depression Total Score: 12 025 3:49 PM EDT documented as of this encounter Care Teams Fruit And Vegetable Factory Worker Relationship Specialty Start Date End Date Soco Alexis NP 230 [place] [address] PCP - General Family Medicine 10/06/24 documented as of this encounter
--- OUTSIDE RECORDS SUMMARY | 2025-02-26 16:18 | XMS_ITS | Encounter Summary ---
Author Organization [facility] Address [address] [place] [address] Phone Care Team Providers Care Contract Clerk Name Role Phone Soco Alexis GROUNDS AND NURSERY SPECIALIST Unavailable [phone] Paco Jean MD, MPH Unavailable Guru Glynn MD Unavailable Soco Alexis GROUNDS AND NURSERY SPECIALIST Primary Care Provider Keily Maldonado DATASTAGE ARCHITECT Unavailable Cassi CarpenterC Unavailable dylan Azra South RN Unavailable Nico Patel MD Unavailable [phone] Paco Jean MD, MPH Unavailable Ro Hardin LCSW Unavailable [email or web address] Myranda Lloyd Unavailable [email or web address] Stuart Saunders MD Unavailable [phone] Glenna Granados GROUNDS AND NURSERY SPECIALIST Unavailable [phone] Rachana Otto MD Primary Care Provider Rachana Otto MD Primary Care Provider [phone] Ibis Wilson RN Unavailable Luisa Vega Unavailable [phone] Moni Argueta RN Unavailable [phone] Pcp, Unknown Primary Care Provider UnavailSoco Hodge NP Primary Care Provider [phone] Encounter Details Date Type Department Care Team (Late st Contact Info) Description 06/19/2022 Procedure Pass [facility] 55 [place] [address] Social History Tobacco Use Types Packs/Day Years [...] 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 file documented as of this encounter Plan of Treatment Upcoming Encounters Date Type Department Care Team (Late st Contact Info) Description 02/17/2025 Procedure Pass [address] [address] 03/17/2025 1:00 PM EST Infusion [facility] FOR BONE MARROW TRANSPLANT 32 [facility], 9th Floor, [address], [place] [address] Nico Patel MD [address] [address] [email or web address] 03/17/2025 2:00 PM EST Office Visit [facility] FOR [facility]ARROW TRANSPLANT 32 [facility], 9th Floor, [address] [place] [address] Krysta Villagomez, VENDOR MANAGER [address] [place] [address] [place] [address] [email or web address] 10/19/2025 12:30 PM EDT Appointment [facility] 30 [place] [address] Soco Alexis, GROUNDS AND NURSERY SPECIALIST 230 [place] [address] documented as of this encounter Visit Diagnoses [...] Noted Time PHQ-2 Depression Total Score: 2 01/11/20 23 10:19 AM EST documented as of this encounter Care Teams Contract Clerk Relationship Specialty Start Date End Date Soco Alexis NP PCP - General Family Medicine 01/26/22 03/13/23 Rachana Otto MD 30 [place] [address] [email or web address] PCP - General Family Medicine 03/14/23 05/30/23 Rachana Otto MD [address] [place] [phone] [email or web address] PCP - General Family Medicine 05/31/23 10/20/24 Pcp, Unknown PCP - General 11/11/24 12/01/24 Soco Alexis GROUNDS AND NURSERY SPECIALIST 230 [place] [address] PCP - General Nurse Practitioner 12/02/24 Soco Alexis GROUNDS AND NURSERY SPECIALIST 03/02/17 12/01/24 Paco Jean MD, MPH 70 [place] [address] [email or web address] Insurance Assigned Provider 03/12/22 07/15/22 Guru Glynn MD [address] [place] [address] [address] [place] [address] [email or web address] Primary Oncologist Medical Oncology 01/24/22 05/09/23 Keily Maldonado CNP 30 [place] [address] [email or web address] Nurse Practitioner Medical Oncology 02/16/22 Cassi Carpenter PA-C [address] [place] [address] [email or web address] Physician Regional Sales Engineer Medical Oncology 03/22/22 08/14/24 Azra South, OLIVIA [address] [place] [address] [email or web address] PHCM Credit Control Clerk 05/09/22 04/08/24 Nico Patel MD [address] [place] [address] [address] [address] [email or web address] Primary Oncologist Hematology 07/13/22 Paco Jean MD, MPH [address] [place] [address] [email or web address] Insurance Assigned Provider 09/09/22 01/13/23 Ro Hardin LCSW [address] [place] [address] [email or web address] PHCM Casing Runner 12/01/22 12/11/22 Myranda Lloyd [address] [place] [address] [email or web address] PHC Community Ui Application Developer 01/16/23 01/17/23 Stuart Saunders MD 30 [place] [address] [email or web address] Primary Oncologist Medical Oncology 01/22/23 Glenna Granados, GROUNDS AND NURSERY SPECIALIST 30 [place] [address] Nurse Practitioner Medical Oncology 03/12/23 08/14/24 Ibis Wilson RN 100 [place] [phone] Primary Infusion Nurse 08/14/23 Luisa Vega 100 [place] [phone] Music Therapist 07/25/24 Moni Argueta, OLIVIA 30 [place] [address] [email or web address] Nurse Navigator 08/15/24 documented as of this encounter Additional Source Comments The information contained in this document represents components of the legal health record. It is not the complete legal health record.[facility]
--- OUTSIDE RECORDS SUMMARY | 2025-02-26 16:19 | XMS_ITS | Encounter Summary ---
Author Organization [facility] Address [address] [place] [address] Phone Care Team Providers Care Nuclear Physician Name Role Phone Soco Alexis COMMISSIONED SECURITY OFFICER Unavailable Keily Maldonado HUMAN ANATOMY TEACHER Unavailable Cassi CarpenterC Unavailable dylan Azra South RN Unavailable Nico Patel MD Unavailable Stuart Saunders MD Unavailable [phone] Glenna Granados COMMISSIONED SECURITY OFFICER Unavailable [phone] Rachana Otto MD Primary Care Provider Ibis Wilson RN Unavailable Luisa Vega Unavailable [phone] Moni Argueta RN Unavailable Pcp, Unknown Primary Care Provider Unavailabl Soco Osullivan COMMISSIONED SECURITY OFFICER Primary Care Provider [phone] Encounter Details Date Type Department Care Team (Late st Contact Info) Description 07/28/2023 Procedure Pass [facility], Lunder 6 55 [facility], 6th [place] [address] Social History Tobacco Use Types Packs/Day Years [...] st Contact Info) Description 02/17/2025 Procedure Pass [facility], [facility] [address] [place] [address] 03/17/2025 1:00 PM EST Infusion [facility] CENTER FOR BONE MARROW TRANSPLANT 32 [facility], 9th Floor, [address] [place] [address] Nico Patel MD 55 [facility] YA [address] [place] [address] 03/17/2025 2:00 PM EST Office Visit [facility] CENTER FOR BONE MARROW TRANSPLANT 32 [facility], 9th Floor, [address] [place] [address] Krysta Villagomez FNP 32 [facility] [address]AW 9 [place] [address] [email or web address] 10/19/2025 12:30 PM EDT Appointment [facility] 30 [place] [address] Soco Alexis, COMMISSIONED SECURITY OFFICER 230 [place] [address] documented as of this encounter Visit Diagnoses [...] Precautions and Duration of Isolation policy in [facility] for details 10/14/2024 10/14/2024 10/21/2024 1:21 AM E DT Assessment Noted Time PHQ-2 Depression Total Score: 2 05/17/19 10:19 AM EST documented as of this encounter Care Teams Nuclear Physician Relationship Specialty Start Date End Date Rachana Otto MD [address] [place] [address] [place] [phone] [email or web address] PCP - General Family Medicine 05/31/23 10/20/24 Pcp, Unknown PCP - General 11/11/24 12/01/24 Soco Alexis COMMISSIONED SECURITY OFFICER [address] [place] [address] PCP - General Nurse Practitioner 12/02/24 Soco lAexis COMMISSIONED SECURITY OFFICER 03/02/17 12/01/24 Keily Maldonado CNP [address] [place] [address] Nurse Practitioner Medical Oncology 02/16/22 Cassi Carpenter PA-C [address] [place] [address] Physician Certified Recreational Therapist Medical Oncology 03/22/22 08/14/24 Azra South RN [address] [place] [address] [email or web address] PHCM Packaging Clerk 05/09/22 04/08/24 Nico Patel MD [address] [place] [address] [place], [place] [phone] Primary Oncologist Hematology 07/13/22 Stuart Saunders MD [address] [place] [address] Primary Oncologist Medical Oncology 01/22/23 Glenna Granados NP [address] [place] [address] Nurse Practitioner Medical Oncology 03/12/23 08/14/24 Ibis Wilson RN [address] [place] [phone] Primary Infusion Nurse 08/14/23 Luisa Vega [address] [place] [phone] Music Therapist 07/25/24 Moni Argueta RN [address] [place] [address] [phone] Nurse Navigator 08/15/24 documented as of this encounter Additional Source Comments The information contained in this document represents components of the legal health record. It is not the complete legal health record.[facility]
--- OUTSIDE RECORDS SUMMARY | 2025-02-26 16:19 | XMS_ITS | Encounter Summary ---
Author Organization [facility] Address [address] [place] [address] Phone Care Team Providers Care Reel Hooker Name Role Phone Soco Alexis WEBMETHODS ARCHITECT Unavailable [phone] Keily Maldonado TECHNICIAN BIOLOGICAL HEALTH Unavailable Cassi CarpenterC Unavailable [email or web address] Azra South RN Unavailable Nico Patel MD Unavailable Stuart Saunders MD Unavailable [phone] Glenna Granados WEBMETHODS ARCHITECT Unavailable [phone] Rachana Otto MD Primary Care Provider Ibis Wilson RN Unavailable Luisa Vega Unavailable Moni Argueta RN Unavailable Pcp, Unknown Primary Care Provider Unavailabl Soco Osullivan WEBMETHODS ARCHITECT Primary Care Provider [phone] Encounter Details Date Type Department Care Team (Late st Contact Info) Description 08/11/2023 Procedure Pass [facility], Powers 2 55 [facility], 2nd [place] [address] Social History Tobacco Use Types Packs/Day Years [...] st Contact Info) Description 02/17/2025 Procedure Pass [facility], [facility] 30 [place] [address] 03/17/2025 1:00 PM EST Infusion [facility] FOR BONE MARROW TRANSPLANT 32 [facility], 9th Floor, [address] [place] [address] Nico Patel MD 55 [facility] YA [address] [place] [address] 03/17/2025 2:00 PM EST Office Visit [facility] FOR BONE MARROW TRANSPLANT 32 [facility], 9th Floor, [address] [place] [address] Krysta Villagomez FNP 32 [facility] 9YAW 9 [place] [address] [email or web address] 10/19/2025 12:30 PM EDT Appointment [facility] 30 [place] [address] Soco Alexis, WEBMETHODS ARCHITECT 230 [place] [address] documented as of this encounter Visit Diagnoses [...] Precautions and Duration of Isolation policy in [facility] for details 10/14/2024 10/14/2024 10/21/2024 1:21 AM E DT Assessment Noted Time PHQ-2 Depression Total Score: 2 05/17/19 10:19 AM EST documented as of this encounter Care Teams Reel Hooker Relationship Specialty Start Date End Date Rachana Otto MD [address] [place] [address] [place] [phone] [email or web address] PCP - General Family Medicine 05/31/23 10/20/24 Pcp, Unknown PCP - General 11/11/24 12/01/24 Soco Alexis WEBMETHODS ARCHITECT [address] [place] [address] PCP - General Nurse Practitioner 12/02/24 Soco Alexis WEBMETHODS ARCHITECT 03/02/17 12/01/24 Keily Maldonado CNP [address] [place] [address] Nurse Practitioner Medical Oncology 02/16/22 Cassi Carpenter PA-C [address] [place] [address] Physician Pier Master Medical Oncology 03/22/22 08/14/24 Azra South RN [address] [place] [address] [email or web address] PHCM Tree Tapping Laborer 05/09/22 04/08/24 Nico Patel MD [address] [place] [address] 9[place], [place] [phone] Primary Oncologist Hematology 07/13/22 Stuart Saunders MD [address] [place] [address] Primary Oncologist Medical Oncology 01/22/23 Glenna Granados NP [address] [place] [address] Nurse Practitioner Medical Oncology 03/12/23 08/14/24 Ibis Wilson RN [address] [place] [phone] Primary Infusion Nurse 08/14/23 Luisa Vega [address] [place] [phone] Music Therapist 07/25/24 Moni Argueta RN [address] [place] [address] [phone] Nurse Navigator 08/15/24 documented as of this encounter Additional Source Comments The information contained in this document represents components of the legal health record. It is not the complete legal health record.[facility]
--- OUTSIDE RECORDS SUMMARY | 2025-02-26 16:20 | XMS_ITS | Encounter Summary ---
Author Organization [facility] Address [address] [place] [address] Phone Care Team Providers Care Senior Technical Analyst Name Role Phone Soco Alexis ARCHITECTURAL WOOD MODEL MAKER Unavailable [phone] Guru Glynn MD Unavailable [phone] Soco Alexis ARCHITECTURAL WOOD MODEL MAKER Primary Care Provider [phone] Keily Maldonado LUMITE INJECTOR Unavailable Cassi Carpenter-C Unavailable pnugen Azra South RN Unavailable Nico Patel MD Unavailable Paco Jean MD, MPH Unavailable [phone] Ro HardinW Unavailable [email or web address] Myranda Lloyd Unavailable [email or web address] Stuart Saunders MD Unavailable [phone] Glenna Granados ARCHITECTURAL WOOD MODEL MAKER Unavailable [phone] Rachana Otto MD Primary Care Provider Rachana Otto MD Primary Care Provider Ibis Wilson RN Unavailable Luisa Vega Unavailable [phone] Moni Argueta RN Unavailable [phone] Pcp, Unknown Primary Care Provider UnavailSoco Hodge ARCHITECTURAL WOOD MODEL MAKER Primary Care Provider [phone] Encounter Details Date Type Department Care Team (Late Contact Info) Description 09/04/2022 Procedure Pass [facility] Emergency [facility], [facility], Floor 1 [place] [address] Social History Tobacco Use Types Packs/Day Years [...] Contact Info) Description 02/17/2025 Procedure Pass [facility] 30 [place] [address] 03/17/2025 1:00 PM EST Infusion [facility] 32 [facility], 9th Floor, [address] [place] [address] Nico Patel MD 55 [facility] [address] [place] [address] [email or web address] 03/17/2025 2:00 PM EST Office Visit [facility] 32 [facility] Building, 9th Floor, [address] [place] [address] Krysta Villagomez FNP 32 [facility] [address] 9 [place] [address] [email or web address] 10/19/2025 12:30 PM EDT Appointment [facility] 30 [place] [address] Soco Alexis NP 230 [place] [address] documented as of this encounter Visit Diagnoses [...] documented as of this encounter Care Teams Senior Technical Analyst Relationship Specialty Start Date End Date Soco Alexis NP PCP - General Family Medicine 01/26/22 03/13/23 Rachana Otto MD 30 [place] [address] [email or web address] PCP - General Family Medicine 03/14/23 05/30/23 Rachana Otto MD [address] [place] [phone] [email or web address] PCP - General Family Medicine 05/31/23 10/20/24 Pcp, Unknown PCP - General 11/11/24 12/01/24 Soco Alexis ARCHITECTURAL WOOD MODEL MAKER [address] [place] [address] PCP - General Nurse Practitioner 12/02/24 Soco Alexis ARCHITECTURAL WOOD MODEL MAKER 03/02/17 12/01/24 Guru Glynn MD [address] [place] [address] [address] [place] [address] [email or web address] Primary Oncologist Medical Oncology 01/24/22 05/09/23 Keily Maldonado CNP 30 [place] [address] [email or web address] Nurse Practitioner Medical Oncology 02/16/22 Cassi Carpenter PA-C 30 [place] [address] Physician Vegetable Inspector Medical Oncology 03/22/22 08/14/24 Azra South RN [address] [place] [address] [email or web address] PHCM Label Stitcher 05/09/22 04/08/24 Nico Patel MD [address] [place] [address] [place] [address] [email or web address] Primary Oncologist Hematology 07/13/22 Paco Jean MD, MPH [address] [place] [address] [email or web address] Insurance Assigned Provider 09/09/22 01/13/23 Ro Hardin LCSW [address] [place] [address] [email or web address] Inspector Hairspring 12/01/22 12/11/22 Myranda Lloyd [address] [place] [address] [email or web address] General Internal Medicine Doctor 01/16/23 01/17/23 Stuart Saunders MD [address] [place] [address] [email or web address] [email or web address] Primary Oncologist Medical Oncology 01/22/23 Glenna Granados, ARCHITECTURAL WOOD MODEL MAKER 30 [place] [address] [email or web address] Nurse Practitioner Medical Oncology 03/12/23 08/14/24 Ibis Wilson, RN 100 [place] [address] Primary Infusion Nurse 08/14/23 Luisa Vega 100 [place] [address] Music Therapist 07/25/24 Moni Argueta RN 30 [place] [address] [email or web address] Nurse Navigator 08/15/24 documented as of this encounter Additional Source Comments The information contained in this document represents components of the legal health record. It is not the complete legal health record.[facility]
--- OUTSIDE RECORDS SUMMARY | 2025-02-26 16:20 | XMS_ITS | Encounter Summary ---
Author Organization [facility] Address [address] [place] [address] Phone Care Team Providers Care Early Learning Teacher Name Role Phone Soco Alexis USER INTERFACE ENGINEER Unavailable [phone] Keily Maldonado BIG DATA LEAD Unavailable Cassi CarpenterC Unavailable [email or web address] Azra South RN Unavailable Nico Patel MD Unavailable Stuart Saunders MD Unavailable [phone] Glenna Granados USER INTERFACE ENGINEER Unavailable [phone] Rachana Otto MD Primary Care Provider Ibis Wilson RN Unavailable Luisa Vega Unavailable [phone] Moni Argueta RN Unavailable Pcp, Unknown Primary Care Provider Unavailabl Soco Osullivan USER INTERFACE ENGINEER Primary Care Provider [phone] Encounter Details Date Type Department Care Team (Late st Contact Info) Description 08/11/2023 Procedure Pass [facility] [place], [place] [facility], Floor 1 [place] [address] Social History Tobacco Use Types Packs/Day Years [...] Info) Description 02/17/2025 Procedure Pass [facility] 30 [place] [address] 03/17/2025 1:00 PM EST Infusion [facility] 32 [facility], 9th Floor, [address] [place] [address] Nico Patel MD 55 [facility] [address] [place] [address] 03/17/2025 2:00 PM EST Office Visit [facility] 32 [facility], 9th Floor, [address] [place] [address] Krysta Villagomez FNP 32 [facility] [address] 9 [place] [address] [email or web address] 10/19/2025 12:30 PM EDT Appointment [facility] 30 [place] [address] Soco Alexis USER INTERFACE ENGINEER 230 [place] [address] documented as of this encounter Visit Diagnoses [...] documented as of this encounter Care Teams Early Learning Teacher Relationship Specialty Start Date End Date Rachana Otto MD [address] [place] [address] [place] [phone] [email or web address] PCP - General Family Medicine 05/31/23 10/20/24 Pcp, Unknown PCP - General 11/11/24 12/01/24 Soco Alexis USER INTERFACE ENGINEER [address] [place] [address] PCP - General Nurse Practitioner 12/02/24 Soco Alexis NP 03/02/17 12/01/24 Keily Maldonado CNP [address] [place] [address] Nurse Practitioner Medical Oncology 02/16/22 Cassi Carpenter PA-C [address] [place] [address] Physician Rail Walker Medical Oncology 03/22/22 08/14/24 Azra South RN [address] [place] [address] [email or web address] PHCM Supervisor Shed Workers 05/09/22 04/08/24 Nico Patel MD [address] [place] [address] 9[place], [place] [phone] Primary Oncologist Hematology 07/13/22 Stuart Saunders MD [address] [place] [address] Primary Oncologist Medical Oncology 01/22/23 Glenna Granados NP [address] [place] [address] [email or web address] Nurse Practitioner Medical Oncology 03/12/23 08/14/24 Ibis Wilson RN [address] [place] [phone] Primary Infusion Nurse 08/14/23 Luisa Vega [address] [place] [phone] Music Therapist 07/25/24 Moni Argueta RN [address] [place] [address] [phone] Nurse Navigator 08/15/24 documented as of this encounter Additional Source Comments The information contained in this document represents components of the legal health record. It is not the complete legal health record.[facility]
--- OUTSIDE RECORDS SUMMARY | 2025-02-26 16:20 | XMS_ITS | Encounter Summary ---
Author Organization [facility] Address [address] [place] [address] Phone Care Team Providers Care Dial Brusher Name Role Phone Soco Alexis DIAMOND SORTER Unavailable [phone] Guru Glynn MD Unavailable [phone] Soco Alexis DIAMOND SORTER Primary Care Provider [phone] Keily Maldonado CORE STRIPPER Unavailable Cassi Carpenter-C Unavailable pnugen Azra South RN Unavailable Nico Patel MD Unavailable Paco Jean MD, MPH Unavailable [phone] Ro HardinW Unavailable [email or web address] Myranda Lloyd Unavailable [email or web address] Stuart Saunders MD Unavailable [phone] Glenna Granados DIAMOND SORTER Unavailable [phone] Rachana Otto MD Primary Care Provider Rachana Otto MD Primary Care Provider Ibis Wilson RN Unavailable Luisa Vega Unavailable [phone] Moni Argueta RN Unavailable [phone] Pcp, Unknown Primary Care Provider UnavailSoco Hodge DIAMOND SORTER Primary Care Provider [phone] Encounter Details Date Type Department Care Team (Late Contact Info) Description 09/04/2022 Procedure Pass [facility] [place] [facility], [facility] 55 [facility], Floor 1 [place] [address] Social History Tobacco Use Types Packs/Day Years [...] (Late Contact Info) Description 02/17/2025 Procedure Pass [facility] 30 [place] [address] 03/17/2025 1:00 PM EST Infusion [facility] [address] [facility], 9th Floor, [address] [place] [address] Nico Patel MD 55 [facility] [address] [place] [address] [email or web address] 03/17/2025 2:00 PM EST Office Visit [facility] 32 [facility] Building, 9th Floor, [address] [place] [address] Krysta Villagomez FNP 32 [facility] 9[address]AW 9 [place] [address] [email or web address] 10/19/2025 12:30 PM EDT Appointment [facility] 30 [place] [address] Soco Alexis NP 230 [place] [address] documented as of this encounter Visit Diagnoses [...] documented as of this encounter Care Teams Dial Brusher Relationship Specialty Start Date End Date Soco Alexis NP PCP - General Family Medicine 01/26/22 03/13/23 Rachana Otto MD 30 [place] [address] [email or web address] PCP - General Family Medicine 03/14/23 05/30/23 Rachana Otto MD [address] [place] [phone] [email or web address] PCP - General Family Medicine 05/31/23 10/20/24 Pcp, Unknown PCP - General 11/11/24 12/01/24 Soco Alexis DIAMOND SORTER [address] [place] [address] PCP - General Nurse Practitioner 12/02/24 Soco Alexis DIAMOND SORTER 03/02/17 12/01/24 Guru Glynn MD [address] [place] [address] [address] [place] [address] [email or web address] Primary Oncologist Medical Oncology 01/24/22 05/09/23 Keily Maldonado CNP 30 [place] [address] [email or web address] Nurse Practitioner Medical Oncology 02/16/22 Cassi Carpenter PA-C 30 [place] [address] Physician Immigration Specialist Medical Oncology 03/22/22 08/14/24 Azra South RN [address] [place] [address] [email or web address] PHCM Appeals Coordinator 05/09/22 04/08/24 Nico Patel MD [address] [place] [address] [place] [address] [email or web address] Primary Oncologist Hematology 07/13/22 Paco Jean MD, MPH [address] [place] [address] [email or web address] Insurance Assigned Provider 09/09/22 01/13/23 Ro Hardin LCSW [address] [place] [address] [email or web address] Applications Programming Lead 12/01/22 12/11/22 Myranda Lloyd [address] [place] [address] [email or web address] 01/16/23 01/17/23 Stuart Saunders MD [address] [place] [address] [email or web address] Primary Oncologist Medical Oncology 01/22/23 Glenna Granados, DIAMOND SORTER 30 [place] [address] [email or web address] Nurse Practitioner Medical Oncology 03/12/23 08/14/24 Ibis Wilson, RN 100 [place] [address] Primary Infusion Nurse 08/14/23 Luisa Vega 100 [place] [address] Music Therapist 07/25/24 Moni Argueta RN 30 [place] [address] [email or web address] Nurse Navigator 08/15/24 documented as of this encounter Additional Source Comments The information contained in this document represents components of the legal health record. It is not the complete legal health record.[facility]
--- OUTSIDE RECORDS SUMMARY | 2025-02-26 16:20 | XMS_ITS | Encounter Summary ---
Author Organization [facility] Address [address] [place] [address] Phone Care Team Providers Care Pre K Lead Teacher Name Role Phone Soco Alexis GUEST SERVICE REPRESENTATIVE Unavailable [phone] Keily Maldonado MINISTER OF RELIGION Unavailable Cassi CarpenterC Unavailable dylan Azra South RN Unavailable Nico Patel MD Unavailable [phone] Stuart Saunders MD Unavailable [phone] Glenna Granados GUEST SERVICE REPRESENTATIVE Unavailable [phone] Rachana Otto MD Primary Care Provider [phone] Ibis Wilson RN Unavailable Luisa Vega Unavailable [phone] Moni Argueta RN Unavailable Pcp, Unknown Primary Care Provider Unavailabl Soco Osullivan GUEST SERVICE REPRESENTATIVE Primary Care Provider [phone] Encounter Details Date Type Department Care Team (Late st Contact Info) Description 08/07/2023 Procedure Pass [facility] [facility] 55 [facility], 6th Floor [address] Social History Tobacco Use Types Packs/Day Years [...] Info) Description 02/17/2025 Procedure Pass [facility] 30 [place] [address] 03/17/2025 1:00 PM EST Infusion [facility] 32 [facility], 9th Floor, [address] [address] Nico Patel MD 55 [facility] [address] [address] 03/17/2025 2:00 PM EST Office Visit [facility] 32 [facility] Building, 9th Floor, [address] [address] Krysta Villagomez FNP 32 [facility] 9YAW 9 [address] [email or web address] 10/19/2025 12:30 PM EDT Appointment [facility] 30 [place] [address] Scoo Alexis, GUEST SERVICE REPRESENTATIVE 230 [place] [address] documented as of this encounter Visit Diagnoses [...] Precautions and Duration of Isolation policy in [facility] for details 10/14/2024 10/14/2024 10/21/2024 1:21 AM E DT Assessment Noted Time PHQ-2 Depression Total Score: 2 05/17/19 10:19 AM EST documented as of this encounter Care Teams Pre K Lead Teacher Relationship Specialty Start Date End Date Rachana Otto MD [address] [place] [address] [place] [phone] [email or web address] PCP - General Family Medicine 05/31/23 10/20/24 Pcp, Unknown PCP - General 11/11/24 12/01/24 Soco Alexis GUEST SERVICE REPRESENTATIVE [address] [place] [address] PCP - General Nurse Practitioner 12/02/24 Soco Alexis GUEST SERVICE REPRESENTATIVE 03/02/17 12/01/24 Keily Maldonado CNP [address] [place] [address] Nurse Practitioner Medical Oncology 02/16/22 Cassi Carpenter PA-C [address] [place] [address] Physician Armored Truck Driver Medical Oncology 03/22/22 08/14/24 Azra South RN [address] [place] [address] [email or web address] PHCM Director Funds Development 05/09/22 04/08/24 Nico Patel MD [address] [place] [address] 9[place], [place] [phone] Primary Oncologist Hematology 07/13/22 Stuart Saunders MD [address] [place] [address] Primary Oncologist Medical Oncology 01/22/23 Glenna Granados NP [address] [place] [address] Nurse Practitioner Medical Oncology 03/12/23 08/14/24 Ibis Wilson RN [address] [place] [phone] Primary Infusion Nurse 08/14/23 Luisa Vega [address] [place] [phone] Music Therapist 07/25/24 Moni Argueta RN [address] [place] [address] [phone] Nurse Navigator 08/15/24 documented as of this encounter Additional Source Comments The information contained in this document represents components of the legal health record. It is not the complete legal health record.[facility]
--- OUTSIDE RECORDS SUMMARY | 2025-02-26 16:20 | XMS_ITS | Encounter Summary ---
Author Organization [facility] Address [address] [place] [address] Phone Care Team Providers Care Gas Line Repairer Name Role Phone Soco Alexis BATCH MIXING TRUCK DRIVER Unavailable [phone] Guru Glynn MD Unavailable Soco Alexis BATCH MIXING TRUCK DRIVER Primary Care Provider [phone] Keily Maldonado CURER FOAM RUBBER Unavailable Cassi Carpenter-C Unavailable pnugen Azra South RN Unavailable Nico Patel MD Unavailable Paco Jean MD, MPH Unavailable [phone] Ro HardinW Unavailable [email or web address] Myranda Lloyd Unavailable [email or web address] Stuart Saunders MD Unavailable [phone] Glenna Granados BATCH MIXING TRUCK DRIVER Unavailable [phone] Rachana Otto MD Primary Care Provider Rachana Otto MD Primary Care Provider Ibis Wilson RN Unavailable Luisa Vega Unavailable [phone] Moni Argueta RN Unavailable [phone] Pcp, Unknown Primary Care Provider UnavailSoco Hodge BATCH MIXING TRUCK DRIVER Primary Care Provider [phone] Encounter Details Date Type Department Care Team (Late Contact Info) Description 09/10/2022 Procedure Pass [facility] [place] 55 [facility], 6th [place] [address] Social History Tobacco Use Types Packs/Day Years [...] st Contact Info) Description 02/17/2025 Procedure Pass [facility] [address] [place] [address] 03/17/2025 1:00 PM EST Infusion [facility] 32 [facility], 9th Floor, [address] [place] [address] Nico Patel MD 55 [facility] [address] [place] [address] [email or web address] 03/17/2025 2:00 PM EST Office Visit [facility] 32 [facility] Building, 9th Floor, [address] [place] [address] Krysta Villagomez FNP 32 [facility] [address] 9 [place] [address] [email or web address] 10/19/2025 12:30 PM EDT Appointment [facility] 30 [place] [address] Soco Alexis NP 230 [place] [address] documented as of this encounter Visit Diagnoses [...] documented as of this encounter Care Teams Gas Line Repairer Relationship Specialty Start Date End Date Soco Alexis NP PCP - General Family Medicine 01/26/22 03/13/23 Rachana Otto MD [address] [place] [address] [email or web address] PCP - General Family Medicine 03/14/23 05/30/23 Rachana Otto MD [address] [place] [phone] [email or web address] PCP - General Family Medicine 05/31/23 10/20/24 Pcp, Unknown PCP - General 11/11/24 12/01/24 Soco Alexis BATCH MIXING TRUCK DRIVER [address] [place] [address] PCP - General Nurse Practitioner 12/02/24 Soco Alexis BATCH MIXING TRUCK DRIVER 03/02/17 12/01/24 Guru Glynn MD [address] [place] [address] [address] [place] [address] [email or web address] Primary Oncologist Medical Oncology 01/24/22 05/09/23 Keily Maldonado CNP [address] [place] [address] [email or web address] Nurse Practitioner Medical Oncology 02/16/22 Cassi Carpenter PA-C [address] [place] [address] Physician Chemical Engraver Medical Oncology 03/22/22 08/14/24 Azra South RN [address] [place] [address] [email or web address] PHCM Tierce Filler 05/09/22 04/08/24 Nico Patel MD [address] [place] [address] 9[place], [place] [address] [email or web address] Primary Oncologist Hematology 07/13/22 Paco Jean MD, MPH [address] [place] [address] [email or web address] Insurance Assigned Provider 09/09/22 01/13/23 Ro Hardin LCSW [address] [place] [address] [email or web address] Physicist Acoustics 12/01/22 12/11/22 Myranda Lloyd [address] [place] [address] [email or web address] Representative 01/16/23 01/17/23 Stuart Saunders MD [address] [place] [address] [email or web address] Primary Oncologist Medical Oncology 01/22/23 Glenna Granados, BATCH MIXING TRUCK DRIVER [address] [place] [address] [email or web address] Nurse Practitioner Medical Oncology 03/12/23 08/14/24 Ibis Wilson, RN 100 [place] [phone] Primary Infusion Nurse 08/14/23 Luisa Vega 100 [place] [phone] Music Therapist 07/25/24 Moni Argueta RN [address] [place] [address] [email or web address] Nurse Navigator 08/15/24 documented as of this encounter Additional Source Comments The information contained in this document represents components of the legal health record. It is not the complete legal health record.[facility]
--- OUTSIDE RECORDS SUMMARY | 2025-02-26 16:20 | XMS_ITS | Encounter Summary ---
Author Organization [facility] Address [address] [place] [address] Phone Care Team Providers Care Bilingual Interpreter Name Role Phone Soco Alexis NEUROLOGICAL PHYSIOTHERAPIST Unavailable [phone] Keily Maldonado STRETCHER HELPER Unavailable Cassi CarpenterC Unavailable dylan Azra South RN Unavailable Nico Patel MD Unavailable Stuart Saunders MD Unavailable [phone] Glenna Granados NEUROLOGICAL PHYSIOTHERAPIST Unavailable [phone] Rachana Otto MD Primary Care Provider Ibis Wilson RN Unavailable Luisa Vega Unavailable Moni Argueta RN Unavailable [phone] Pcp, Unknown Primary Care Provider Unavailabl Soco Osullivan NEUROLOGICAL PHYSIOTHERAPIST Primary Care Provider [phone] Encounter Details Date Type Department Care Team (Late st Contact Info) Description 08/03/2023 Procedure Pass [facility] [place] [address] [facility], 6th [place] [address] Social History Tobacco Use Types Packs/Day Years [...] st Contact Info) Description 02/17/2025 Procedure Pass [facility] [address] [place] [address] 03/17/2025 1:00 PM EST Infusion [facility] 32 [facility], 9th Floor, [address] [place] [address] Nico Patel MD 55 [facility] YA [address]E [place] [address] 03/17/2025 2:00 PM EST Office Visit [facility] 32 [facility] Building, 9th Floor, [address] [place] [address] Krysta Villagomez FNP 32 [facility] [address]YAW 9 [place] [address] [email or web address] 10/19/2025 12:30 PM EDT Appointment [facility] 30 [place] [address] Soco Alexis, NEUROLOGICAL PHYSIOTHERAPIST 230 [place] [address] documented as of this encounter Visit Diagnoses [...] Precautions and Duration of Isolation policy in [facility] for details 10/14/2024 10/14/2024 10/21/2024 1:21 AM E DT Assessment Noted Time PHQ-2 Depression Total Score: 2 05/17/19 10:19 AM EST documented as of this encounter Care Teams Bilingual Interpreter Relationship Specialty Start Date End Date Rachana Otto MD [address] [place] [address] [place] [phone] [email or web address] PCP - General Family Medicine 05/31/23 10/20/24 Pcp, Unknown PCP - General 11/11/24 12/01/24 Soco Alexis NEUROLOGICAL PHYSIOTHERAPIST [address] [place] [address] PCP - General Nurse Practitioner 12/02/24 Soco Alexis NEUROLOGICAL PHYSIOTHERAPIST 03/02/17 12/01/24 Keily Maldonado CNP [address] [place] [address] Nurse Practitioner Medical Oncology 02/16/22 Cassi Carpenter PA-C [address] [place] [address] [email or web address] Physician Pet [employer] Deboner Medical Oncology 03/22/22 08/14/24 Azra South RN [address] [place] [address] [email or web address] PHCM Specimen Processor 05/09/22 04/08/24 Nico Patel MD [address] [place] [address] [place], [place] [phone] Primary Oncologist Hematology 07/13/22 Stuart Saundres MD [address] [place] [address] Primary Oncologist Medical Oncology 01/22/23 Glenna Granados NP [address] [place] [address] Nurse Practitioner Medical Oncology 03/12/23 08/14/24 Ibis Wilson RN [address] [place] [phone] Primary Infusion Nurse 08/14/23 Luisa Vega [address] [place] [phone] Music Therapist 07/25/24 Moni Argueta RN [address] [place] [address] [phone] Nurse Navigator 08/15/24 documented as of this encounter Additional Source Comments The information contained in this document represents components of the legal health record. It is not the complete legal health record.[facility]
--- OUTSIDE RECORDS SUMMARY | 2025-02-26 16:21 | XMS_ITS | Encounter Summary ---
Author Organization [facility] Address [address] [place] [address] Phone Care Team Providers Care Steel Buffer Name Role Phone Soco Alexis REMOTE INPATIENT CODER Unavailable [phone] Guru Glynn MD Unavailable Soco Alexis REMOTE INPATIENT CODER Primary Care Provider [phone] Keily Maldonado B[employer] FARMER FRUIT CROPS Unavailable Cassi Carpenter-C Unavailable pnugen Azra South RN Unavailable Nico Patel MD Unavailable Paco Jean MD, MPH Unavailable [phone] Ro HardinW Unavailable [email or web address] Myarnda Lloyd Unavailable [email or web address] Stuart Saunders MD Unavailable [phone] Glenna Granados REMOTE INPATIENT CODER Unavailable [phone] Rachana Otto MD Primary Care Provider [phone] Rachana Otto MD Primary Care Provider Ibis Wilson RN Unavailable Luisa Vega Unavailable [phone] Moni Argueta RN Unavailable [phone] Pcp, Unknown Primary Care Provider UnavailSoco Hodge REMOTE INPATIENT CODER Primary Care Provider [phone] Encounter Details Date Type Department Care Team (Late st Contact Info) Description 09/19/2022 Procedure Pass [facility] 30 [place] [address] Social History Tobacco Use Types Packs/Day Years [...] 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 Wish to be (Past 1 Month) No 09/19/2022 8:00 PM JOLENET Duane, Johnna J oy, RN 2. Non-Specific Active Suici jared Thoughts (Past 1 Month) No 09/19/2022 8:00 PM EDT Chiara Zepeda, OLIVIA 6. Suicidal Behavior (Lifetime) No 8:00 PM EDT Johnna Zepeda, RN documented as of this encounter Plan of Treatment Upcoming Encounters Date Type Department Care Team (Late st Contact Info) Description 02/17/2025 Procedure Pass [address] [address] 03/17/2025 1:00 PM EST Infusion [facility] 32 [facility], 9th Floor, [address] [place] [address] Nico Patel MD [address] [address] [email or web address] 03/17/2025 2:00 PM EST Office Visit [facility] 32 [facility], 9th Floor, [address] [place] [address] Krysta Villagomez FNP 32 [facility] 9YAW 9 [place] [address] [email or web address] 10/19/2025 12:30 PM EDT Appointment [address] [address] Soco Alexis NP 230 [place] [address] documented as of this encounter Visit Diagnoses [...] documented as of this encounter Care Teams Steel Buffer Relationship Specialty Start Date End Date Soco Alexis REMOTE INPATIENT CODER PCP - General Family Medicine 01/26/22 03/13/23 Rachana Otto MD 30 [place] [address] [email or web address] PCP - General Family Medicine 03/14/23 05/30/23 Rachana Otto MD [address] [place] [phone] [email or web address] PCP - General Family Medicine 05/31/23 10/20/24 Pcp, Unknown PCP - General 11/11/24 12/01/24 Soco Alexis REMOTE INPATIENT CODER 230 [place] [address] PCP - General Nurse Practitioner 12/02/24 Soco Alexis REMOTE INPATIENT CODER 03/02/17 12/01/24 Guru Glynn MD [address] [place] [address] [address] [phone] [email or web address] Primary Oncologist Medical Oncology 01/24/22 05/09/23 Keily Maldonado CNP [address] [place] [address] [email or web address] Nurse Practitioner Medical Oncology 02/16/22 Cassi Carpenter PA-C [address] [place] [address] [email or web address] Physician Compliance Officer Medical Oncology 03/22/22 08/14/24 Azra South RN [address] [place] [address] [email or web address] PHCM Assessment Manager 05/09/22 04/08/24 Nico Patel MD [address] [place] [address] [email or web address] Primary Oncologist Hematology 07/13/22 Paco Jean MD, MPH [address] [place] [address] [email or web address] Insurance Assigned Provider 09/09/22 01/13/23 Ro Hardin LCSW 10 [place] [address] [email or web address] PHCM Steam Box Tender 12/01/22 12/11/22 Myranda Lloyd [address] [place] [address] [email or web address] PHCM Community Senior Oracle Adf Developer 01/16/23 01/17/23 Stuart Saunders MD 30 [place] [address] Primary Oncologist Medical Oncology 01/22/23 Glenna Granados NP [address] [place] [address] [email or web address] Nurse Practitioner Medical Oncology 03/12/23 08/14/24 Ibis Wilson RN [address] [place] [phone] [email or web address] Primary Infusion Nurse 08/14/23 Luisa Vega [address] [place] [phone] Music Therapist 07/25/24 Moni Argueta RN [address] [place] [phone] [email or web address] Nurse Navigator 08/15/24 documented as of this encounter Additional Source Comments The information contained in this document represents components of the legal health record. It is not the complete legal health record.[facility]
--- OUTSIDE RECORDS SUMMARY | 2025-02-26 16:21 | XMS_ITS | Encounter Summary ---
Author Organization [facility] Address [address] [place] [address] Phone Care Team Providers Care Landfill Gas Collection System Operator Name Role Phone Soco Alexis FINISHING MACHINE OPERATOR Unavailable [phone] EricaClydeen CYLINDER TESTER Unavailable Nico Patel MD Unavailable Stuart Saunders MD Unavailable [phone] Rachana Otto MD Primary Care Provider Ibis Wilson RN Unavailable Luisa Vega Unavailable [phone] Moni Argueta RN Unavailable Pcp, Unknown Primary Care Provider Unavailabl e Soco Alexis FINISHING MACHINE OPERATOR Primary Care Provider [phone] Encounter Details Date Type Department Care Team (Late st Contact Info) Description 10/13/2024 Transcribe Orders [facility] Specimen Processing 30 [place] [address] Rachana Otto MD 70 [place], [place] [phone] Social History Tobacco Use Types Packs/Day Years [...] 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 Suicide Severity Rating Scale (Screener/Recent Self-Report) Question [...] st Contact Info) Description 02/17/2025 Procedure Pass [facility] 30 [place] [address] 03/17/2025 1:00 PM EST Infusion [facility] 32 [facility], 9th Floor, [address] [place] [address] Nico Patel MD 55 [facility] 9E [place] [address] [email or web address] 03/17/2025 2:00 PM EST Office Visit [facility] 32 [facility], 9th Floor, [address] [place] [address] Krysta Villagomez FNP 32 [facility] 9YAW 9 [place] [address] [email or web address] 10/19/2025 12:30 PM EDT Appointment [facility] 30 [place] [address] Soco Alexis, FINISHING MACHINE OPERATOR 230 [place] [address] documented as of this encounter Visit Diagnoses [...] documented as of this encounter Care Teams Landfill Gas Collection System Operator Relationship Specialty Start Date End Date Rachana Otto MD [address] [place] [address] [place] [phone] [email or web address] PCP - General Family Medicine 05/31/23 10/20/24 Pcp, Unknown PCP - General 11/11/24 12/01/24 Soco Alexis FINISHING MACHINE OPERATOR 230 [place] [address] PCP - General Nurse Practitioner 12/02/24 Soco Alexis NP 03/02/17 12/01/24 Keily Maldonado CNP 30 [place] [address] [email or web address] Nurse Practitioner Medical Oncology 02/16/22 iNco Patel MD [address] [place] [address] 9[address] [place] [address] [email or web address] Primary Oncologist Hematology 07/13/22 Stuart Saunders MD 30 [place] [address] [email or web address] Primary Oncologist Medical Oncology 01/22/23 Ibis Wilson RN [address] [place] [phone] [email or web address] Primary Infusion Nurse 08/14/23 Luisa Vega 100 [place] [phone] Music Therapist 07/25/24 Moni Argueta RN 30 [place] [address] [email or web address] Nurse Navigator 08/15/24 documented as of this encounter Additional Source Comments The information contained in this document represents components of the legal health record. It is not the complete legal health record.[facility]
--- OUTSIDE RECORDS SUMMARY | 2025-02-26 16:21 | XMS_ITS | Encounter Summary ---
Author Organization [facility] Address [address] [place] [address] Phone Care Team Providers Care Rivet Machine Operator Name Role Phone Soco Alexis CLIMATE CHANGE ANALYST Unavailable [phone] Guru Glynn MD Unavailable Soco Alexis CLIMATE CHANGE ANALYST Primary Care Provider [phone] Keily Maldonado PHYSICAL EDUCATION SPECIALIST Unavailable Cassi Carpenter-C Unavailable pnugen Azra South RN Unavailable Nico Patel MD Unavailable [phone] Paco Jean MD, MPH Unavailable [phone] Ro HardinW Unavailable [email or web address] Myranda Lloyd Unavailable [email or web address] Stuart Saunders MD Unavailable [phone] Glenna Granados CLIMATE CHANGE ANALYST Unavailable [phone] Rachana Otto MD Primary Care Provider Rachana Otto MD Primary Care Provider Ibis Wilson RN Unavailable Luisa Vega Unavailable [phone] Moni Argueta RN Unavailable Pcp, Unknown Primary Care Provider UnavailSoco Hodge CLIMATE CHANGE ANALYST Primary Care Provider [phone] Encounter Details Date Type Department Care Team (Late st Contact Info) Description 09/19/2022 Procedure Pass [facility], Ct Scan - [facility] 30 [place] [address] Social History Tobacco Use Types Packs/Day Years [...] 09/19/2022 8:00 PM Johnna Kerns, OLIVIA * [place] Suicide Severity Rating Scale (Screener/Recent Self-Report) Question [...] Contact Info) Description 02/17/2025 Procedure Pass [address] [address] 03/17/2025 1:00 PM EST Infusion [facility] [address] [place] [address], 9th Floor, [address] [place] [address] Nico Patel MD [address] [address] [email or web address] 03/17/2025 2:00 PM EST Office Visit [facility] [address] [facility], 9th Floor, [address] [place] [address] Krysta Villagomez FNP 32 [facility] 9YAW 9 [place] [address] [email or web address] 10/19/2025 12:30 PM EDT Appointment [address] [address] Soco Alexis NP 230 [place] [address] documented as of this encounter Visit Diagnoses [...] documented as of this encounter Care Teams Rivet Machine Operator Relationship Specialty Start Date End Date Soco Alexis NP PCP - General Family Medicine 01/26/22 03/13/23 Rachana Otto MD 30 [place] [address] [email or web address] PCP - General Family Medicine 03/14/23 05/30/23 Rachana Otto MD [address] [place] [phone] [email or web address] PCP - General Family Medicine 05/31/23 10/20/24 Pcp, Unknown PCP - General 11/11/24 12/01/24 Soco Alexis CLIMATE CHANGE ANALYST 230 [place] [address] PCP - General Nurse Practitioner 12/02/24 Soco Alexis CLIMATE CHANGE ANALYST 03/02/17 12/01/24 Guru Glynn MD [address] [place], [place] [address] [address] [place] [address] [email or web address] Primary Oncologist Medical Oncology 01/24/22 05/09/23 Keily Maldonado CNP 30 [place] [address] Nurse Practitioner Medical Oncology 02/16/22 Cassi Carpenter PA-C [address] [place] [address] [email or web address] Physician Brick Yard Hand Medical Oncology 03/22/22 08/14/24 Azra South RN [address] [place] [address] PHCM Room Maid 05/09/22 04/08/24 Nico Patel MD [address] [place] [address] 9[place], [place] [address] [email or web address] Primary Oncologist Hematology 07/13/22 Paco Jean MD, MPH [address] [place] [address] [email or web address] Insurance Assigned Provider 09/09/22 01/13/23 Ro Hardin LCSW 10 [place] [address] [email or web address] PHCM It Operations Analyst 12/01/22 12/11/22 Myranda Lloyd [address] [place] [address] [email or web address] PHCM Community Reproductive Endocrinologist 01/16/23 01/17/23 Stuart Saunders MD 30 [place] [address] [email or web address] Primary Oncologist Medical Oncology 01/22/23 Glenna Granados NP [address] [place] [address] [email or web address] Nurse Practitioner Medical Oncology 03/12/23 08/14/24 Ibis Wilson RN [address] [place] [phone] [email or web address] Primary Infusion Nurse 08/14/23 Luisa Veag [address] [place] [phone] [email or web address] Music Therapist 07/25/24 Moni Argueta RN [address] [place] [address] [email or web address] Nurse Navigator 08/15/24 documented as of this encounter Additional Source Comments The information contained in this document represents components of the legal health record. It is not the complete legal health record.[facility]
--- OUTSIDE RECORDS SUMMARY | 2025-02-26 16:21 | XMS_ITS | Encounter Summary ---
Author Organization [facility] Address [address] [place] [address] Phone Care Team Providers Care Soft Metals Hand Engraver Name Role Phone Soco Alexis COLD FOOD PACKER Unavailable [phone] Guru Glynn MD Unavailable Soco Alexis COLD FOOD PACKER Primary Care Provider [phone] Keily Maldonado INSTRUMENT MECHANICS SUPERVISOR Unavailable Cassi Carpenter-C Unavailable pnugen Azra South RN Unavailable Nico Patel MD Unavailable Paco Jean MD, MPH Unavailable [phone] Ro HardinW Unavailable [email or web address] Myranda Lloyd Unavailable [email or web address] Stuart Saunders MD Unavailable [phone] Glenna Granados COLD FOOD PACKER Unavailable [phone] Rachana Otto MD Primary Care Provider Rachana Otto MD Primary Care Provider Ibis Wilson RN Unavailable Luisa Vega Unavailable [phone] Moni Argueta RN Unavailable [phone] Pcp, Unknown Primary Care Provider UnavailSoco Hodge COLD FOOD PACKER Primary Care Provider [phone] Encounter Details Date Type Department Care Team (Late st Contact Info) Description 09/19/2022 Procedure Pass [facility], Ct [facility] - [facility] 30 [place] [address] Social History Tobacco Use Types Packs/Day Years [...] 09/19/2022 8:00 PM Johnna Kerns, OLIVIA * [place] Suicide Severity Rating Scale (Screener/Recent Self-Report) Question [...] Contact Info) Description 02/17/2025 Procedure Pass [address] [address] 03/17/2025 1:00 PM EST Infusion [facility] [address] [place] [address], 9th Floor, [address] [place] [address] Nico Patel MD [address] [address] [email or web address] 03/17/2025 2:00 PM EST Office Visit [facility] 32 [facility], 9th Floor, [address] [place] [address] Krysta Villagomez FNP 32 [facility] 9YAW 9 [place] [address] [email or web address] 10/19/2025 12:30 PM EDT Appointment [address] [address] Soco Alexis NP 230 [place] [address] documented as of this encounter Visit Diagnoses [...] documented as of this encounter Care Teams Soft Metals Hand Engraver Relationship Specialty Start Date End Date Soco Alexis NP PCP - General Family Medicine 01/26/22 03/13/23 Rachana Otto MD 30 [place] [address] [email or web address] PCP - General Family Medicine 03/14/23 05/30/23 Rachana Otto MD [address] [place] [phone] [email or web address] PCP - General Family Medicine 05/31/23 10/20/24 Pcp, Unknown PCP - General 11/11/24 12/01/24 Soco Alexis COLD FOOD PACKER 230 [place] [address] PCP - General Nurse Practitioner 12/02/24 Soco Alexis COLD FOOD PACKER 03/02/17 12/01/24 Guru Glynn MD [address] [place], [place] [address] [address] [place] [address] [email or web address] Primary Oncologist Medical Oncology 01/24/22 05/09/23 Keily Maldonado CNP 30 [place] [address] Nurse Practitioner Medical Oncology 02/16/22 Cassi Carpenter PA-C [address] [place] [address] [email or web address] Physician Tile Roofer Medical Oncology 03/22/22 08/14/24 Azra South RN [address] [place] [address] PHCM Video Production Engineer 05/09/22 04/08/24 Nico Patel MD [address] [place] [address] [place] [address] [email or web address] Primary Oncologist Hematology 07/13/22 Paco Jean MD, MPH [address] [place] [address] [email or web address] Insurance Assigned Provider 09/09/22 01/13/23 Ro Hardin LCSW 10 [place] [address] [email or web address] PHCM Anatomic Pathology Assistant 12/01/22 12/11/22 Myranda Lloyd [address] [place] [address] [email or web address] PHCM Community Pathology Secretary 01/16/23 01/17/23 Stuart Saunders MD 30 [place] [address] [email or web address] Primary Oncologist Medical Oncology 01/22/23 Glenna Granados NP [address] [place] [address] [email or web address] Nurse Practitioner Medical Oncology 03/12/23 08/14/24 Ibis Wilson RN [address] [place] [phone] [email or web address] Primary Infusion Nurse 08/14/23 Luisa Vega [address] [place] [phone] [email or web address] Music Therapist 07/25/24 Moni Argueta RN [address] [place] [address] [email or web address] Nurse Navigator 08/15/24 documented as of this encounter Additional Source Comments The information contained in this document represents components of the legal health record. It is not the complete legal health record.[facility]
--- OUTSIDE RECORDS SUMMARY | 2025-02-26 16:21 | XMS_ITS | Encounter Summary ---
Author Organization [facility] Address [address] [place] [address] Phone Care Team Providers Care Multimedia Coordinator Name Role Phone Soco Alexis GEOSPATIAL APPLICATIONS DEVELOPER Unavailable [phone] Guru Glynn MD Unavailable Soco Alexis GEOSPATIAL APPLICATIONS DEVELOPER Primary Care Provider [phone] Keily Maldonado KEEPER HEAD Unavailable Cassi Carpenter-C Unavailable pnugen Azra South RN Unavailable Nico Patel MD Unavailable Paco Jean MD, MPH Unavailable [phone] Ro HardinW Unavailable [email or web address] Myranda Lloyd Unavailable [email or web address] Stuart Saunders MD Unavailable [phone] Glenna Granados GEOSPATIAL APPLICATIONS DEVELOPER Unavailable [phone] Rachana Otto MD Primary Care Provider Rachana Otto MD Primary Care Provider Ibis Wilson RN Unavailable Luisa Vega Unavailable [phone] Moni Argueta RN Unavailable [phone] Pcp, Unknown Primary Care Provider UnavailSoco Hodge GEOSPATIAL APPLICATIONS DEVELOPER Primary Care Provider [phone] Encounter Details Date Type Department Care Team (Late Contact Info) Description 09/10/2022 Procedure Pass [facility] CT, Lunder 6 [address] [facility], 6th [place] [address] Social History Tobacco Use Types Packs/Day Years [...] st Contact Info) Description 02/17/2025 Procedure Pass [facility] [address] [place] [address] 03/17/2025 1:00 PM EST Infusion [facility] CENTER FOR BONE MARROW TRANSPLANT 32 [facility], 9th Floor, [address] [place] [address] Nico Patel MD [address] [facility] [address] [place] [address] [email or web address] 03/17/2025 2:00 PM EST Office Visit [facility] CENTER FOR BONE MARROW TRANSPLANT 32 [facility], 9th Floor, [address] [place] [address] Krysta Villagomez FNP 32 [facility] [address] 9 [place] [address] [email or web address] 10/19/2025 12:30 PM EDT Appointment [facility] 30 [place] [address] Soco Alexis NP [address] [place] [address] documented as of this encounter Visit Diagnoses [...] documented as of this encounter Care Teams Multimedia Coordinator Relationship Specialty Start Date End Date Soco Alexis NP PCP - General Family Medicine 01/26/22 03/13/23 Rachana Otto MD 30 [place] [address] [email or web address] PCP - General Family Medicine 03/14/23 05/30/23 Rachana Otto MD [address] [place] [phone] [email or web address] PCP - General Family Medicine 05/31/23 10/20/24 Pcp, Unknown PCP - General 11/11/24 12/01/24 Soco Alexis GEOSPATIAL APPLICATIONS DEVELOPER [address] [place] [address] PCP - General Nurse Practitioner 12/02/24 Soco Alexis GEOSPATIAL APPLICATIONS DEVELOPER 03/02/17 12/01/24 Guru Glynn MD [address] [place] [address] [address] [place] [address] [email or web address] Primary Oncologist Medical Oncology 01/24/22 05/09/23 Keily Maldonado CNP 30 [place] [address] [email or web address] Nurse Practitioner Medical Oncology 02/16/22 Cassi Carpenter PA-C 30 [place] [address] Physician Referral And Information Aide Medical Oncology 03/22/22 08/14/24 Azra South RN [address] [place] [address] [email or web address] PHCM Emergency Communications Dispatcher 05/09/22 04/08/24 Nico Patel MD [address] [place] [address] [address] [address] [email or web address] Primary Oncologist Hematology 07/13/22 Paco Jean MD, MPH [address] [place] [address] [email or web address] Insurance Assigned Provider 09/09/22 01/13/23 Ro Hardin LCSW [address] [place] [address] [email or web address] Organ Builder 12/01/22 12/11/22 Myranda Lloyd [address] [place] [address] [email or web address] Manager 01/16/23 01/17/23 Stuart Saunders MD 30 [place] [address] [email or web address] Primary Oncologist Medical Oncology 01/22/23 Glenna Granados, GEOSPATIAL APPLICATIONS DEVELOPER 30 [place] [address] [email or web address] Nurse Practitioner Medical Oncology 03/12/23 08/14/24 Ibis Wilson, RN 100 [place] [address] Primary Infusion Nurse 08/14/23 Luisa Vega 100 [place] [address] Music Therapist 07/25/24 Moni Argueta RN 30 [place] [address] [email or web address] Nurse Navigator 08/15/24 documented as of this encounter Additional Source Comments The information contained in this document represents components of the legal health record. It is not the complete legal health record.[facility]
--- OUTSIDE RECORDS SUMMARY | 2025-02-26 16:21 | XMS_ITS | Encounter Summary ---
Author Organization [facility] Address [address] [place] [address] Phone Care Team Providers Care Ui Designer Name Role Phone Soco Alexis DYER AND WASHER Unavailable [phone] Guru Glynn MD Unavailable Soco Alexis DYER AND WASHER Primary Care Provider [phone] Keily Maldonado LOAN EXAMINER Unavailable Cassi Carpenter-C Unavailable pnugen Azra South RN Unavailable Nico Patel MD Unavailable Paco Jean MD, MPH Unavailable [phone] Ro HardinW Unavailable [email or web address] Myranda Lloyd Unavailable [email or web address] Stuart Saunders MD Unavailable [phone] Glenna Granados DYER AND WASHER Unavailable [phone] Rachana Otto MD Primary Care Provider Rahcana Otto MD Primary Care Provider Ibis Wilson RN Unavailable Luisa Vega Unavailable [phone] Moni Argueta RN Unavailable [phone] Pcp, Unknown Primary Care Provider UnavailSoco Hodge DYER AND WASHER Primary Care Provider [phone] Encounter Details Date Type Department Care Team (Late st Contact Info) Description 08/21/2022 Documentation [facility] CENTER FOR BONE MARROW TRANSPLANT 32 [facility], 9th Floor, [address] [place] [address] Nico Patel MD [address] [place] [address] [email or web address] Social History Tobacco Use Types Packs/Day Years [...] st Contact Info) Description 02/17/2025 Procedure Pass [facility], [address] [address] 03/17/2025 1:00 PM EST Infusion [facility] CENTER FOR BONE MARROW TRANSPLANT 32 [facility], 9th Floor, [address] [place] [address] Nico Patel MD 55 [facility] [address] [place] [address] [email or web address] 03/17/2025 2:00 PM EST Office Visit [facility] CENTER FOR BONE MARROW TRANSPLANT 32 [facility], 9th Floor, [address] [place] [address] Krysta Villagomez FNP 32 [facility] [address] 9 [place] [address] [email or web address] 10/19/2025 12:30 PM EDT Appointment [facility] 30 [place] [address] Soco Alexis NP 230 [place] [address] documented as of this encounter Visit Diagnoses [...] documented as of this encounter Care Teams Ui Designer Relationship Specialty Start Date End Date Soco Alexis NP PCP - General Family Medicine 01/26/22 03/13/23 Rachana Otto MD 30 [place] [address] [email or web address] PCP - General Family Medicine 03/14/23 05/30/23 Rachana Otto MD [address] [place] [address] [place] [address] [email or web address] PCP - General Family Medicine 05/31/23 10/20/24 Pcp, Unknown PCP - General 11/11/24 12/01/24 Soco Alexis DYER AND WASHER [address] [place] [address] PCP - General Nurse Practitioner 12/02/24 Soco Alexis DYER AND WASHER 03/02/17 12/01/24 Guru Glynn MD [address] [place], [place] [address] [address] [place] [address] [email or web address] Primary Oncologist Medical Oncology 01/24/22 05/09/23 Keily Maldonado CNP [address] [place] [address] [email or web address] Nurse Practitioner Medical Oncology 02/16/22 Cassi Carpenter PA-C [address] [place] [address] Physician Deputy Prosecuting Attorney Medical Oncology 03/22/22 08/14/24 Azra South RN [address] [place] [address] PHCM Registered Nurse Cardiac Telemetry 05/09/22 04/08/24 Nico Patel MD [address] [place] [address] [address] [email or web address] Primary Oncologist Hematology 07/13/22 Paco Jean MD, MPH [address] [place] [address] [email or web address] Insurance Assigned Provider 09/09/22 01/13/23 Ro Hardin LCSW [address] [place] [address] [email or web address] PHC Foot Roentgenologist 12/01/22 12/11/22 Myranda Lloyd [address] [place] [address] [email or web address] Community Shoulder Boner 01/16/23 01/17/23 Stuart Saunders MD [address] [place] [address] [email or web address] Primary Oncologist Medical Oncology 01/22/23 Glenna Granados, DYER AND WASHER [address] [place] [address] [email or web address] Nurse Practitioner Medical Oncology 03/12/23 08/14/24 Ibis Wilson, OLIVIA [address] [place] [address] Primary Infusion Nurse 08/14/23 Luisa Vega 100 [place] [address] Music Therapist 07/25/24 Moni Argueta RN 30 [place] [address] [email or web address] Nurse Navigator 08/15/24 documented as of this encounter Additional Source Comments The information contained in this document represents components of the legal health record. It is not the complete legal health record.[facility]
--- OUTSIDE RECORDS SUMMARY | 2025-02-26 16:22 | XMS_ITS | Encounter Summary ---
Author Organization [facility] Address [address] [place] [address] Phone Care Team Providers Care Newsagent Name Role Phone Soco Alexis TRUSS ASSEMBLER Unavailable [phone] Paco Jean MD, MPH Unavailable Guru Glynn MD Unavailable Soco Alexis TRUSS ASSEMBLER Primary Care Provider Keily Maldonado NITROGLYCERIN NEUTRALIZER Unavailable Cassi CarpenterC Unavailable dylan Azra South RN Unavailable Nico Patel MD Unavailable Paco Jean MD, MPH Unavailable Ro Hardin LCSW Unavailable [email or web address] Myranda Lloyd Unavailable [email or web address] Stuart Saunders MD Unavailable [phone] Glenna Granados TRUSS ASSEMBLER Unavailable [phone] Rachana Otto MD Primary Care Provider Rachana Otto MD Primary Care Provider [phone] Ibis Wilson RN Unavailable Luisa Vega Unavailable [phone] Moni Argueta RN Unavailable [phone] Pcp, Unknown Primary Care Provider UnavailSoco Hodge NP Primary Care Provider [phone] Encounter Details Date Type Department Care Team (Late Contact Info) Description 02/02/2022 Procedure Pass [facility] Echo Lab 30 [place] [address] Social History Tobacco Use Types Packs/Day Years [...] 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, 9th Floor, [address] [place] [address] Nico Patel MD 55 [facility] [address] [place] [address] [email or web address] 03/17/2025 2:00 PM EST Office Visit [facility] CENTER FOR BONE MARROW TRANSPLANT 32 [facility], 9th Floor, [address] [place] [address] Krysta Villagomez FNP 32 [facility] [address] 9 [place] [address] [email or web address] 10/19/2025 12:30 PM EDT Appointment [facility] 30 [place] [address] Soco Alexis NP [address] [place] [address] documented as of this encounter Visit Diagnoses [...] documented as of this encounter Care Teams Newsagent Relationship Specialty Start Date End Date Soco Alexis TRUSS ASSEMBLER PCP - General Family Medicine 01/26/22 03/13/23 Rachana Otto MD 30 [place] [address] [email or web address] PCP - General Family Medicine 03/14/23 05/30/23 Rachana Otto MD [address] [place] [phone] [email or web address] PCP - General Family Medicine 05/31/23 10/20/24 Pcp, Unknown PCP - General 11/11/24 12/01/24 Soco Alexis TRUSS ASSEMBLER [address] [place] [address] PCP - General Nurse Practitioner 12/02/24 Soco Alexis TRUSS ASSEMBLER 03/02/17 12/01/24 Paco Jean MD, MPH [address] [place] [address] Insurance Assigned Provider 03/12/22 07/15/22 Guru Glynn MD [address] [place] [address] [address] [place] [address] [email or web address] Primary Oncologist Medical Oncology 01/24/22 05/09/23 Keily Maldonado CNP [address] [place] [address] [email or web address] Nurse Practitioner Medical Oncology 02/16/22 Cassi Carpenter PA-C [address] [place] [address] [email or web address] Physician Industrial Hygiene Manager Medical Oncology 03/22/22 08/14/24 Azra South RN [address] [place] [address] [email or web address] PHCM Garment Parts Cutter Machine 05/09/22 04/08/24 Nico Patel MD [address] [place] [address] [email or web address] Primary Oncologist Hematology 07/13/22 Paco Jean MD, MPH [address] [place] [address] [email or web address] Insurance Assigned Provider 09/09/22 01/13/23 Ro Hardin LCSW [address] [place] [address] [email or web address] PHCM Insurance Examining Clerk 12/01/22 12/11/22 Myranda Lloyd [address] [place] [address] [email or web address] PHCM Community Lining Finisher 01/16/23 01/17/23 Stuart Saunders MD [address] [place] [address] [email or web address] Primary Oncologist Medical Oncology 01/22/23 Glenna Granados NP [address] [place] [address] Nurse Practitioner Medical Oncology 03/12/23 08/14/24 Ibis Wilson RN [address] [place] [phone] [email or web address] Primary Infusion Nurse 08/14/23 Luisa Vega [address] [place] [phone] Music Therapist 07/25/24 Moni Argueta RN [address] [place] [address] [email or web address] Nurse Navigator 08/15/24 documented as of this encounter Additional Source Comments The information contained in this document represents components of the legal health record. It is not the complete legal health record.[facility]
--- OUTSIDE RECORDS SUMMARY | 2025-02-26 16:22 | XMS_ITS | Encounter Summary ---
Author Organization [facility] Address [address] [place] [address] Phone Care Team Providers Care Drag Sawyer Name Role Phone Soco Alexis GLAZING MACHINE OPERATOR Unavailable [phone] Guru Glynn MD Unavailable Soco Alexis GLAZING MACHINE OPERATOR Primary Care Provider [phone] Keily Maldonado PHOTOGRAMMETRY AIRPLANE PILOT Unavailable Cassi Carpenter-C Unavailable pnugen Azra South RN Unavailable Nico Patel MD Unavailable Paco Jean MD, MPH Unavailable [phone] Ro HardinW Unavailable [email or web address] Myranda Lloyd Unavailable [email or web address] Stuart Saunders MD Unavailable [phone] Glenna Granados GLAZING MACHINE OPERATOR Unavailable [phone] Rachana Otto MD Primary Care Provider [phone] Rachana Otto MD Primary Care Provider Ibis Wilson RN Unavailable Luisa Vega Unavailable [phone] Moni Argueta RN Unavailable [phone] Pcp, Unknown Primary Care Provider UnavailSoco Hodge GLAZING MACHINE OPERATOR Primary Care Provider [phone] Encounter Details Date Type Department Care Team (Late st Contact Info) Description 09/14/2022 Procedure Pass [facility] Imaging - RF/IR 55 [place] [address] Social History Tobacco Use Types Packs/Day Years [...] st Contact Info) Description 02/17/2025 Procedure Pass [facility] 30 [place] [address] 03/17/2025 1:00 PM EST Infusion [facility] CENTER FOR BONE MARROW TRANSPLANT [address] [facility], 9th Floor, [address] [place] [address] Nico Patel MD 55 [facility] [address] [place] [address] [email or web address] 03/17/2025 2:00 PM EST Office Visit [facility] CENTER FOR BONE MARROW TRANSPLANT [address] [facility], 9th Floor, [address] [place] [address] Krysta Villagomez FNP 32 [facility] [address] 9 [place] [address] [email or web address] 10/19/2025 12:30 PM EDT Appointment [facility] 30 [place] [address] Soco Alexis, GLAZING MACHINE OPERATOR 230 [place] [address] documented as of this encounter Visit Diagnoses [...] Precautions and Duration of Isolation policy in [facility] for details 10/14/2024 10/14/2024 10/21/2024 1:21 AM E DT Assessment Noted Time PHQ-2 Depression Total Score: 2 05/17/19 23 10:19 AM EST documented as of this encounter Care Teams Drag Sawyer Relationship Specialty Start Date End Date Soco Alexis NP PCP - General Family Medicine 01/26/22 03/13/23 Rachana Otto MD 30 [place] [address] [email or web address] PCP - General Family Medicine 03/14/23 05/30/23 Rachana Otto MD [address] [place] [address] [place] [address] [email or web address] PCP - General Family Medicine 05/31/23 10/20/24 Pcp, Unknown PCP - General 11/11/24 12/01/24 Soco Alexis NP [address] [place] [address] PCP - General Nurse Practitioner 12/02/24 Soco Alexis GLAZING MACHINE OPERATOR 03/02/17 12/01/24 Guru Glynn MD [address] [place] [address] [address] [place] [address] [email or web address] Primary Oncologist Medical Oncology 01/24/22 05/09/23 Keily Maldonado CNP 30 [place] [address] [email or web address] Nurse Practitioner Medical Oncology 02/16/22 Cassi Carpenter PA-C 30 [place] [address] [email or web address] Physician High School Art Teacher Medical Oncology 03/22/22 08/14/24 Azra South, OLIVIA [address] [place] [address] [email or web address] PHCM Clinical Lab Specialist 05/09/22 04/08/24 Nico Patel MD 55 [facility] 9[place] [address] [email or web address] Primary Oncologist Hematology 07/13/22 Paco Jean MD, MPH [address] [place] [address] [email or web address] Insurance Assigned Provider 09/09/22 01/13/23 Ro Hardin UPPER SHAPER [address] [place] [address] [email or web address] Vice President Of Finance 12/01/22 12/11/22 Myranda Lloyd [address] [place] [address] [email or web address] Faculty 01/16/23 01/17/23 Stuart Saunders MD 30 [place] [address] [email or web address] Primary Oncologist Medical Oncology 01/22/23 Glenna Granados, GLAZING MACHINE OPERATOR 30 [place] [address] [email or web address] Nurse Practitioner Medical Oncology 03/12/23 08/14/24 Ibis Wilson RN [address] [place] [phone] [email or web address] Primary Infusion Nurse 08/14/23 Luisa Vega [address] [place] [phone] Music Therapist 07/25/24 Moni Argueta RN [address] [place] [address] [email or web address] Nurse Navigator 08/15/24 documented as of this encounter Additional Source Comments The information contained in this document represents components of the legal health record. It is not the complete legal health record.[facility]
--- OUTSIDE RECORDS SUMMARY | 2025-02-26 16:22 | XMS_ITS | Encounter Summary ---
Author Organization [facility] Address [address] [place] [address] Phone Care Team Providers Care Seed Corn Production Manager Name Role Phone Soco Alexis SCREEN TENDER Unavailable [phone] Paco Jean MD, MPH Unavailable Guru Glynn MD Unavailable Soco Alexis SCREEN TENDER Primary Care Provider Keily Maldonado BUCKLE ATTACHER Unavailable Cassi CarpenterC Unavailable dylan Azra South RN Unavailable Nico Patel MD Unavailable Paco Jean MD, MPH Unavailable Ro Hardin LCSW Unavailable [email or web address] Myranda Lloyd Unavailable [email or web address] Stuart Saunders MD Unavailable Glenna Granados SCREEN TENDER Unavailable Rachana Otto MD Primary Care Provider Rachana Otto MD Primary Care Provider [phone] Ibis Wilson RN Unavailable Luisa Vega Unavailable [phone] Moni Argueta RN Unavailable [phone] Pcp, Unknown Primary Care Provider UnavailSoco Hodge NP Primary Care Provider [phone] Encounter Details Date Type Department Care Team (Late Contact Info) Description 02/16/2022 Procedure Pass [place] Admitting Dept - [facility] Department [address] [place] [address] Social History Tobacco Use Types Packs/Day Years [...] 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 file documented as of this encounter Plan of Treatment Upcoming Encounters Date Type Department Care Team (Late Contact Info) Description 02/17/2025 Procedure Pass [facility] [address] [place] [address] 03/17/2025 1:00 PM EST Infusion [facility] FOR [facility] [address] [facility], 9th Floor, [address] [place] [address] Nico Patel MD [address] [place] [address] [address] [place] [address] 03/17/2025 2:00 PM EST Office Visit [facility] [address] [facility], 9th Floor, [address] [place] [address] Krysta Villagomez FNP 32 [facility] [address] 9 [place] [address] [email or web address] 10/19/2025 12:30 PM EDT Appointment [facility] 30 [place] [address] Soco Alexis NP [address] [place] [address] documented as of this encounter Visit Diagnoses [...] documented as of this encounter Care Teams Seed Corn Production Manager Relationship Specialty Start Date End Date Soco Alexis SCREEN TENDER PCP - General Family Medicine 01/26/22 03/13/23 Rachana Otto MD 30 [place] [address] PCP - General Family Medicine 03/14/23 05/30/23 Rachana Otto MD [address] [place] [phone] [email or web address] PCP - General Family Medicine 05/31/23 10/20/24 Pcp, Unknown PCP - General 11/11/24 12/01/24 Soco Alexis SCREEN TENDER [address] [place] [address] PCP - General Nurse Practitioner 12/02/24 Soco Alexis SCREEN TENDER 03/02/17 12/01/24 Paco Jean MD, MPH [address] [place], [place] [phone] Insurance Assigned Provider 03/12/22 07/15/22 Guru Glynn MD [address] [place] [address] [address] [place] [address] [email or web address] Primary Oncologist Medical Oncology 01/24/22 05/09/23 Keily Maldonado CNP [address] [place] [address] [email or web address] Nurse Practitioner Medical Oncology 02/16/22 Cassi Carpenter PA-C [address] [place] [address] [email or web address] Physician Trestle Mechanic Medical Oncology 03/22/22 08/14/24 Azra South RN [address] [place] [address] [email or web address] PHCM Biomedical Instrument Technician 05/09/22 04/08/24 Nico Patel MD [address] [place] [address] [email or web address] Primary Oncologist Hematology 07/13/22 Paco Jean MD, MPH [address] [place] [address] [email or web address] Insurance Assigned Provider 09/09/22 01/13/23 Ro Hardin LCSW [address] [place] [address] [email or web address] PHCM Lay Out Former 12/01/22 12/11/22 Myranda Lloyd [address] [place], [place] [email or web address] PHCM Community Inspector Precision Assembly 01/16/23 01/17/23 Stuart Saunders MD [address] [place] [address] Primary Oncologist Medical Oncology 01/22/23 Glenna Granados NP [address] [place] [address] Nurse Practitioner Medical Oncology 03/12/23 08/14/24 Ibis Wilson RN [address] [place] [phone] [email or web address] Primary Infusion Nurse 08/14/23 Luisa Vega [address] [place] [phone] Music Therapist 07/25/24 Moni Argueta RN [address] [place] [phone] [email or web address] Nurse Navigator 08/15/24 documented as of this encounter Additional Source Comments The information contained in this document represents components of the legal health record. It is not the complete legal health record.[facility]
--- OUTSIDE RECORDS SUMMARY | 2025-02-26 16:23 | XMS_ITS | Encounter Summary ---
Author Organization [facility] Address [address] [place] [address] [address] [place] [address] Phone Care Team Providers Care Accounts Payable Accountant Name Role Phone Soco Alexis FLAVORINGS COMPOUNDER Unavailable [phone] Keily Maldonado AERIAL INSTALLER Unavailable Cassi CarpenterC Unavailable [email or web address] Nico Patel MD Unavailable Stuart Saunders MD Unavailable [phone] Glenna Granados FLAVORINGS COMPOUNDER Unavailable Rachana Otto MD Primary Care Provider Ibis Wilson RN Unavailable Luisa Vega Unavailable [phone] Moni Argueta RN Unavailable [phone] Pcp, Unknown Primary Care Provider Unavailabl Soco Osullivan FLAVORINGS COMPOUNDER Primary Care Provider [phone] Encounter Details Date Type Department Care Team (Late st Contact Info) Description 06/07/2024 Procedure Pass [facility], Lul [address] 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 file documented as of this encounter Functional Status * Calculated C-SSRS Risk Score (Lifetime/Recent) Answer Date of Assessment Author No Risk Indicated 06/07/2024 11:00 PM Jenn Drake RN * [place] Suicide Severity Rating Scale (Screener/Recent Self-Report) Question [...] st Contact Info) Description 02/17/2025 Procedure Pass [facility] 30 [place] [address] 03/17/2025 1:00 PM EST Infusion [facility] FOR [facility] [address] [facility], 9th Floor, [address] [place] [address] Nico Patel MD 55 [facility] [address] [place] [address] 03/17/2025 2:00 PM EST Office Visit [facility] [address] [facility], 9th Floor, [address] [place] [address] Krysta Villagomez FNP 32 [facility] [address] 9 [place] [address] [email or web address] 10/19/2025 12:30 PM EDT Appointment [facility] 30 [place] [address] Soco Alexis, FLAVORINGS COMPOUNDER [address] [place] [address] documented as of this encounter Visit Diagnoses [...] documented as of this encounter Care Teams Accounts Payable Accountant Relationship Specialty Start Date End Date Rachana Otto MD [address] [place] [address] [place] [phone] [email or web address] PCP - General Family Medicine 05/31/23 10/20/24 Pcp, Unknown PCP - General 11/11/24 12/01/24 Soco Alexis, FLAVORINGS COMPOUNDER [address] [place] [address] PCP - General Nurse Practitioner 12/02/24 Soco Alexis FLAVORINGS COMPOUNDER 03/02/17 12/01/24 Keily Maldonado, AUBREE [address] [place] [address] [email or web address] Nurse Practitioner Medical Oncology 02/16/22 Cassi Carpenter PA-C [address] [place] [address] [email or web address] Physician [place] Vascular Tech Medical Oncology 03/22/22 08/14/24 Nico Patel MD [address] [place] [address] [place], [place] [address] [email or web address] Primary Oncologist Hematology 07/13/22 Stuart Saunders MD [address] [place] [address] [email or web address] Primary Oncologist Medical Oncology 01/22/23 Glenna Granados FLAVORINGS COMPOUNDER [address] [place] [address] Nurse Practitioner Medical Oncology 03/12/23 08/14/24 Ibis Wilson, OLIVIA [address] [place] [phone] [email or web address] Primary Infusion Nurse 08/14/23 Luisa Vega 100 [place] [phone] Music Therapist 07/25/24 Moni Argueta RN 30 [place] [address] [email or web address] Nurse Navigator 08/15/24 documented as of this encounter Additional Source Comments The information contained in this document represents components of the legal health record. It is not the complete legal health record.[facility]
--- OUTSIDE RECORDS SUMMARY | 2025-02-26 16:23 | XMS_ITS | Encounter Summary ---
Author Organization [facility] Address [address] [place] [address] Phone Care Team Providers Care Central Sterile Supply Technician Name Role Phone Soco Alexis HAND SUTURE WINDER Unavailable [phone] Keily Maldonado RHIC SYSTEMS SAFETY ENGINEER Unavailable Cassi CarpenterC Unavailable dylan Nico Patel MD Unavailable Stuart Saunders MD Unavailable [phone] Glenna Granados HAND SUTURE WINDER Unavailable [phone] Rachana Otto MD Primary Care Provider Ibis Wilson RN Unavailable Luisa Vega Unavailable [phone] Moni Argueta RN Unavailable [phone] Pcp, Unknown Primary Care Provider Unavailabl e Soco Alexis HAND SUTURE WINDER Primary Care Provider [phone] Encounter Details Date Type Department Care Team (Late st Contact Info) Description 05/14/2024 Procedure Pass [facility], Ct Scan - [address] [address] Social History Tobacco Use Types Packs/Day Years [...] 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 Wish to be (Past 1 Month) No 05/14/2024 4:20 PM Kristin Baum RN 2. Non-Specific Active Suicidal Thoughts (Past 1 Month) No 05/14/2024 4:20 PM Kristin Baum RN 6. Suicidal Behavior (Lifetime) No 05/14/2024 4:20 PM Kristin Baum RN documented as of this encounter Plan of Treatment Upcoming Encounters Date Type Department Care Team (Late st Contact Info) Description 02/17/2025 Procedure Pass [facility] 30 [place] [address] 03/17/2025 1:00 PM EST Infusion [facility] FOR [facility]ARROW TRANS[facility] [address] [facility], 9th Floor, [address] [place] [address] Nico Patel MD 55 [facility] [address] [place] [address] 03/17/2025 2:00 PM EST Office Visit [facility] 32 [facility], 9th Floor, [address] [place] [address] Krysta Villagomez FNP 32 [facility] [address] 9 [place] [address] [email or web address] 10/19/2025 12:30 PM EDT Appointment [facility] 30 [place] [address] Soco Alexis NP [address] [place] [address] documented as of this encounter Visit Diagnoses [...] documented as of this encounter Care Teams Central Sterile Supply Technician Relationship Specialty Start Date End Date Rachana Otto [place] [phone] [email or web address] PCP - General Family Medicine 05/31/23 10/20/24 Pcp, Unknown PCP - General 11/11/24 12/01/24 Soco Alexis, HAND SUTURE WINDER [address] [place] [address] PCP - General Nurse Practitioner 12/02/24 Soco Alexis, HAND SUTURE WINDER 03/02/17 12/01/24 Keily Maldonado CNP [address] [place] [address] [email or web address] Nurse Practitioner Medical Oncology 02/16/22 Cassi Carpenter PA-C [address] [place] [address] Physician Assembler Camper Medical Oncology 03/22/22 08/14/24 Nico Patel MD [address] [place] [address] [email or web address] Primary Oncologist Hematology 07/13/22 Stuart Saunders MD [address] [place] [address] Primary Oncologist Medical Oncology 01/22/23 Glenna Granados, HAND SUTURE WINDER [address] [place] [address] Nurse Practitioner Medical Oncology 03/12/23 08/14/24 Ibis Wilson RN 100 [place] [phone] Primary Infusion Nurse 08/14/23 Luisa Vega [address] [place] [phone] Music Therapist 07/25/24 Moni Argueta RN [address] [place] [phone] Nurse Navigator 08/15/24 documented as of this encounter Additional Source Comments The information contained in this document represents components of the legal health record. It is not the complete legal health record.[facility]
--- OUTSIDE RECORDS SUMMARY | 2025-02-26 16:23 | XMS_ITS | Encounter Summary ---
Author Organization [facility] Address [address] [place] [address] Phone Care Team Providers Care Machine Straw Hat Presser Name Role Phone Soco Alexis CHIEF ENTERPRISE ARCHITECT Unavailable [phone] Keily Maldonado RANCH HAND LIVESTOCK Unavailable Cassi CarpenterC Unavailable [email or web address] Azra South RN Unavailable Nico Patel MD Unavailable [phone] Stuart Saunders MD Unavailable [phone] Glenna Granados CHIEF ENTERPRISE ARCHITECT Unavailable [phone] Rachana Otto MD Primary Care Provider Ibis Wilson RN Unavailable Luisa Vega Unavailable [phone] Moni Argueta RN Unavailable Pcp, Unknown Primary Care Provider Unavailabl Soco Osullivan CHIEF ENTERPRISE ARCHITECT Primary Care Provider [phone] Encounter Details Date Type Department Care Team (Late st Contact Info) Description 06/11/[address] [facility], Lunder 6 [address] [facility], 6th [place] [address] Social History Tobacco Use Types Packs/Day Years [...] st Contact Info) Description 02/17/2025 Procedure Pass [facility] [address] [place] [address] 03/17/2025 1:[address] [facility] FOR [facility] MARROW TRANSPLANT 32 [facility], 9th Floor, [address] [place] [address] Nico Patel MD 55 [facility] [address] [place] [address] 03/17/2025 2:00 PM EST Office Visit [facility] FOR [facility]OW [facility] 32 [facility], 9th Floor, [address] [place] [address] Krysta Villagomez FNP 32 [facility] 9YAW 9 [place] [address] [email or web address] 10/19/2025 12:30 PM EDT Appointment [facility] 30 [place] [address] Soco Alexis, CHIEF ENTERPRISE ARCHITECT 230 [place] [address] documented as of this encounter Visit Diagnoses [...] as of this encounter Care Teams Machine Straw Hat Presser Relationship Specialty Start Date End Date Rachana Otto MD [address] [place] [address] [place] [phone] [email or web address] PCP - General Family Medicine 05/31/23 10/20/24 Pcp, Unknown PCP - General 11/11/24 12/01/24 Soco Alexis CHIEF ENTERPRISE ARCHITECT [address] [place] [address] PCP - General Nurse Practitioner 12/02/24 Soco Alexis CHIEF ENTERPRISE ARCHITECT 03/02/17 12/01/24 Keily Maldonado CNP [address] [place] [address] [email or web address] Nurse Practitioner Medical Oncology 02/16/22 Cassi Carpenter PA-C [address] [place] [address] [email or web address] [email or web address] Physical Ther Medical Oncology 03/22/22 08/14/24 Azra South RN [address] [place] [phone] [email or web address] PHC Marketing Intern 05/09/22 04/08/24 Nico Patel MD [address] [place] [address] [email or web address] Primary Oncologist Hematology 07/13/22 Stuart Saunders MD [address] [place] [address] [email or web address] Primary Oncologist Medical Oncology 01/22/23 Glenna Granados NP [address] [place] [address] [email or web address] Nurse Practitioner Medical Oncology 03/12/23 08/14/24 Ibis Wilson RN [address] [place] [phone] Primary Infusion Nurse 08/14/23 Luisa Vega [address] [place] [phone] Music Therapist 07/25/24 Moni Argueta RN [address] [place] [address] [email or web address] Nurse Navigator 08/15/24 documented as of this encounter Additional Source Comments The information contained in this document represents components of the legal health record. It is not the complete legal health record.[facility]
--- OUTSIDE RECORDS SUMMARY | 2025-02-26 16:23 | XMS_ITS ---
Author Organization [facility] Address [address] [facility] [address] [place] [address] Phone Care Team Providers Care Seed And Fertilizer Specialist Name Role Phone Keily Maldonado VICE PROVOST Unavailable Nico Patel MD Unavailable Stuart Saunders MD Unavailable [phone] Ibis Wilson RN Unavailable Luisa Vega Unavailable [phone] Moni Argueta RN Unavailable [phone] Soco Alexis NP Primary Care Provider [phone] Active Problems * This document contains information received from the source organization and may not represent a complete record from that organization. Patient Care Coordination No te Formatting of this note migh t be different from the original. 06/12/24 bin [id number] meddadv [id number] MATTY FA[employer] FOR [employer]EP[employer] APPROVED 08/28/24 TO [...] Parainfluenza URI w asthma exacerbation Rhinovirus 04/2024. [facility] ICU 05/2024 w/ multifocal PNA w/ influenza A & asthma exacerbation. [facility] 07/22-07/26 for influenza B infection w/asthma exacerbation. [facility] 10/09 -or asthma exacerbation w/ unrevealing infectious w/u, treated w inhalers and steroids. Re-presented 10/13 to [facility] ED on 10/13 w/ increased dyspnea/orthopnea, cough, chest pain, and fevers (102.5). Started on cefepime (10/13-10/15) & SoluMedrol 125 mg IV x1. Transfer to [facility]. Doxycyline started 10/13 for empiric CAP coverage. [...] Parainfluenza URI w asthma exacerbation Rhinovirus 04/2024. [facility] ICU 05/2024 w/ multifocal PNA w/ influenza A & asthma exacerbation. [facility] 07/22-07/26 for influenza B infection w/asthma exacerbation. [facility] 10/09 -or asthma exacerbation w/ unrevealing infectious w/u, treated w inhalers and steroids. Re-presented 10/13 to [facility] ED on 10/13 w/ increased dyspnea/orthopnea, cough, chest pain, and fevers (102.5). Started on cefepime & SoluMedrol 125 mg IV x1. Transfer to [facility]. Doxycyline started 10/13 for empiric CAP coverage. [...] w/ asthma exacerbations. Rhinovirus 04/2024. Admitted to [facility] ICU late May 2024 w/subsequent [facility] transfer for multifocal PNA w/ influenza A infection w/ asthma exacerbation. Re-admitted to [facility] 07/22-07/26 for influenza B infection w/asthma exacerbation. Recent admitted to [facility] 10/09 for asthma exacerbation w/ unrevealing infectious w/u, for which pt received inhalers and steroids.. Discharged 10/11, but re-presented to [facility] ED on 10/13 w/ increased dyspnea/orthopnea, cough, chest pain, and fevers (101.2F at home, 102.5F in ED). Bld cx's drawn x2, limited RVP (-) for Flu A, Flu B, & Covid-19. She was started on cefepime & received SoluMedrol 125 mg IV x1. CXR (10/13) showed low b/l lung volumes w/bibasilar bronchovascular crowding. On transfer to [facility], exam notable for diffuse expiratory wheezes & [...] #Anxiety/Depression/PTSD/Bipolar/ Panic Attacks Was followed by Psychiatry TANK OFFICER Jenn Correa closely for ~20years with stable psych regimen. She has moved and connected Otilia to a new provider for medication management and she also has a therapist she sees outpt. - cont home caplyta 42mg daily - Hydroxyzine 100mg nightly - Prazosin 2mg nightly - Xanax 2mg TID (per MANTEL CRAFTSMAN script); reports she takes this nightly IN [...] O2 sat > 92%. On transfer to [facility], she is satting 98% on 3L NC. [...] O2 sat > 92%. On transfer to [facility], she is satting 98% on 3L NC. [...] O2 sat > 92%. On transfer to [facility], she is satting 98% on 3L NC. [...] higher level of care - discussing with [facility] as may need transfer - discussed with [...] toxin, adenovirus and norovirus are through the [facility] and would need to be ordered as [...] fungal prophylaxis; Fluconazole -Plan to transfer to [facility] for higher level of care Assessment & [...] treatment for T-cell lymphoma. Treatment guided by [facility] oncology after her recent admission, see full [...] for concern for sepsis. On evaluation at [facility], she has no signs of sepsis. Blood [...] for concern for sepsis. On evaluation at [facility], she has no signs of sepsis. Blood [...] for concern for sepsis. On evaluation at [facility], she has no signs of sepsis. Blood cultures remain negative. Procalcitonin is low at 0.15. CXR is clear. Clinically she is non-toxic appearing with no clear source of bacterial infection. Will therefore hold antibiotics and trend vitals and clinical exam. She continues to have wheeze on exam so will send an extended respiratory viral panel (not sent at [facility]) looking for viral co-infection. 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 Of [...] loose stools a day. She presented to [facility] ED on 09/18 for ongoing fevers. She was initially started on vanc and cefepime given concern for a possible emerging PNA on CXR. That evening of 09/18, she became hypotensive and SOB. A rapid response was called. She was givn IVF resuscitation and started on pressors. She was transferred from [facility] ICU to [facility] ICU. She continued to have large amounts [...] iso oversedation leading to suppression of central PRINTER SLOTTER HELPER and fevers. She was discharged home on [...] iso oversedation leading to suppression of central PRINTER SLOTTER HELPER and fevers. - HOLD Adderall - Psych [...] SoluMedrol 125 mg IV x1 10/13 in [facility] ED. NC CT chest---ILD imaging focus (10/14) w/o significant air trapping. - see management of exacerbation above - Outpatient team to consider repeat PFTs # HTN: Previously on amlodipine, which was stopped given CP. Labetalol started 12/2023 w/ good control. - Cont labetalol 100 mg PO BID w/ parameters #GERD - Continue Omeprazole home regimen #Anxiety/Depression/PTSD/Bipolar/ Panic Attacks: Was followed by Psychiatry TANK OFFICER Jenn Correa closely for ~20years with stable [...] SoluMedrol 125 mg IV x1 10/13 in [facility] ED. NC CT chest---ILD imaging focus (10/14) w/o significant air trapping. - see management of exacerbation above - Outpatient team to consider repeat PFTs # HTN: Previously on amlodipine, which was stopped given CP. Labetalol started 12/2023 w/ good control. - Cont labetalol 100 mg PO BID w/ parameters #GERD - Continue Omeprazole home regimen #Anxiety/Depression/PTSD/Bipolar/ Panic Attacks: Was followed by Psychiatry TANK OFFICER Jenn Correa closely for ~20years with stable [...] SoluMedrol 125 mg IV x1 10/13 in [facility] ED. - Start prednisone 50 mg [...] #Anxiety/Depression/PTSD/Bipolar/ Panic Attacks: Was followed by Psychiatry TANK OFFICER Jenn Correa closely for ~20years with stable [...] #Anxiety/Depression/PTSD/Bipolar/ Panic Attacks: Was followed by Psychiatry TANK OFFICER Jenn Correa closely for ~20years with stable [...] #Anxiety/Depression/PTSD/Bipolar/ Panic Attacks: Was followed by Psychiatry TANK OFFICER Jenn Correa closely for ~20years with stable [...] #Anxiety/Depression/PTSD/Bipolar/ Panic Attacks: Was followed by Psychiatry TANK OFFICER Jenn Correa closely for ~20years with stable [...] #Anxiety/Depression/PTSD/Bipolar/ Panic Attacks: Was followed by Psychiatry TANK OFFICER Jenn Correa closely for ~20years with stable [...] EDT): #Anxiety/Depression/PTSD/Bipolar/Panic Attacks: #ADHD Followed by Psychiatry TANK OFFICER Jenn Correa closely for ~20years with stable psych med regimen of Capylta 42mg daily, Hydroxyzine 100mg nightly, Prazosin 2mg nightly, Xanax 6mg nightly, and Adderall 30mg BID (confirmed with patient and outpatient prescriber). Home Caplyta has been dose reduced to 21mg daily due to drug interactions. Patient does report increased irritability and anxiety while being hospitalized. - Previously followed outpatient w/ metallurgical analyst Jenn Correa - Low threshold to involve [...] PM EDT): #Anxiety/Depression/PTSD/Bipolar/Panic Attacks: #ADHD Follows Psychiatry TANK OFFICER Jenn Correa closely for ~20years with stable [...] SCT treatment. - Appreciate input from outpatient metallurgical analyst Jenn Correa who is readily available to assist in care - Will try to maintain home dosing per Dr. 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 Admitting provider spoke with patient's [facility] stem cell physician Dr. Patel, who reviewed laboratory workup including CBC, CMP, chest x-ray, suspected mild leukopenia be secondary to a viral illness more so than bacterial infection contributing to asthma exacerbation, recommended to continue general therapy with steroids 40 mg for additional 4 days, does not require prolonged taper course, further infectious workup, monitoring off antibiotics, did recommend to continue patient's chronic yqttw-vfljix-joej disease medications. Did iterate that if patient's respiratory status worsens, worsening laboratory exam, they have accepted her for transfer given her extensive treatment at [facility]. -Continue Bactrim and Valtrex for prophylaxis. 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 -Spoke with patient's [facility] stem cell physician Dr. Patel, who reviewed laboratory workup including CBC, CMP, chest x-ray, suspected mild leukopenia be secondary to a viral illness more so than bacterial infection contributing to asthma exacerbation, recommended to continue general therapy with steroids 40 mg for additional 4 days, does not require prolonged taper course, further infectious workup, monitoring off antibiotics, did recommend to continue patient's chronic gghhe-dbkjly-hzct disease medications. Did iterate that if patient's respiratory status worsens, worsening laboratory exam, they have accepted her for transfer given her extensive treatment at [facility]. -Continue Bactrim and Valtrex for prophylaxis. Assessment [...] 06/19, she was also recently seen at [facility] for second opinion. Labs with no [...] with her mental health provider since her [facility] discharge who recommended discontinuation of Zyprexa and [...] T cell lymphoma of lymph nodes of [facility] sites 01/30/2022 Assessment & Plan [...] second opinion scheduled with Dr. Casper in [place]. She has been tolerating current therapy without any significant side effects and will continue as planned. Dr. Saunders is also trying to get the approval for Romidepsin for her RECOMMENDATIONS: Continue current therapy She has second opinion scheduled in [place] next week Follow-up with Dr. Saunders after [...] ursodiol for VOD prophylaxis. Recommendation to consult [facility] oncology team with updates and treatment plans. [...] 09/04 pt reports worsening mucositis, required dilaudid INTERMEDIATE PROJECT MANAGER with good effect. INTERMEDIATE PROJECT MANAGER discontinued 09/11. TPN stopped on 09/14 - [...] 10:42 AM EDT): Regular checkup with her galvanizer zinc as scheduled or as needed. Unexplained weight [...] medications scheduled. a. Therapy Complete Krysta Villagomez, PATIENT SERVICES ASSISTANT BLOOD PRODUCT TRANSFUSION 08/19/2023 03/27/2024 No medications scheduled. a. Therapy Complete Nico Patel MD HYDRATION & SUPPORTIVE CARE 03/22/2022 08/22/2022 No medications scheduled. a. Therapy Complete Cassi Carpenter PA-C Oncology Therapy Plan Supplemental Plan Name Start Date Discontinue Date Treatment Medications Discontinue Reason Plan Provider PENTAMIDINE IV 08/23/2023 11/25/2024 No medication s scheduled. a. Therapy Complete Krysta Villagomez, PATIENT SERVICES ASSISTANT PLERIXAFOR 08/09/2022 08/22/2022 No medications scheduled. a. Therapy Complete Luisa Flores, [facility] PLAN Plan Name Start Date Discontinue Date Treatment Medications Discontinue Reason Plan Provider Cycles -: BLD 08/25/2022 04/26/2023 carmustine (BiCNU) IVPB 1 mg/mL {PVC free bag} Fr bagcytarabine (JUNIOR-C) IVPB {100 mg/mL liquid vial}etoposide (VEPESID, TOPOSAR) infusion QS 1200 mL [id number] or placebo () 20 10^6 cells / [...] headache of approximately 2 weeks duration beginning MANTEL CRAFTSMAN that is described as dull, wave-like and [...] scan that documented cardiac involvement at [facility]. Since her mother also has sarcoid cardiac involvement and sees a electrical assemblies supervisor as she believes in [place] I requested her to check with her mother the name of this electrical assemblies supervisor so I could coordinate her personal assessment by the same electrical assemblies supervisor. I would defer treatment plan until we [...] are unremarkable. Will await PFT results from [facility] recently performed (have been normal [...]
--- OUTSIDE RECORDS SUMMARY | 2025-02-26 16:23 | XMS_ITS | Encounter Summary ---
Author Organization [facility] Address [address] [place] [address] Phone Care Team Providers Care Dumper Bulk System Name Role Phone Keily Maldonado TRUCK LOADER OVERHEAD CRANE Unavailable Nico Patel MD Unavailable Stuart Saunders MD Unavailable [phone] Ibis Wilson RN Unavailable Luisa Vega Unavailable [phone] Moni Argueta RN Unavailable [phone] Soco Alexis NP Primary Care Provider [phone] Encounter Details Date Type Department Care Team (Latest Contact Info) Description 02/17/2025 Transcribe Orders Virtual Department [address] [place] [address] Soco Alexis NP [address] [place], [place] [phone] Breast screening (Primary Dx) Social History Tobacco [...] 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 file documented as of this encounter Plan of Treatment Upcoming Encounters Date Type Department Care Team (Late st Contact Info) Description 02/17/2025 Procedure Pass [address] [address] 03/17/2025 1:00 PM EST Infusion [facility] [address] [place] [address], 9th [address], [address], [place] [address] Nico Patel MD [address] [place] [address] [email or web address] 03/17/2025 2:00 PM EST Office Visit [facility] [address] [place] [address], 9th [address], [address], [place] [address] Krysta Villagomez FNP [address] [facility] [address] [place] [address] [email or web address] 10/19/2025 12:30 PM EDT Appointment [address] [address] Soco Alexis NP [address] [place] [address] Scheduled Orders Name Type Priority Associated Diagnoses Orde r Schedule Mammogram Screening (Bilateral) Imaging Routine Breast screening Expected: 03/20/2025, Expires: 02/17/2026 documented as of this encounter Visit Diagnoses Diagnosis Breast screening- Primary Breast screening, unspecified documented in this encounter Additional Health Concerns Assessment Noted Time PHQ-2 Depression Total Score: 2 05/17/19 23 10:19 AM EST documented as of this encounter Care Teams Dumper Bulk System Relationship Specialty Start Date End Date Soco Alexis HOUSEMAID [address] [place] [address] PCP - General Nurse Practitioner 12/02/24 Keily Maldonado CNP [address] [place] [address] [email or web address] Nurse Practitioner Medical Oncology 02/16/22 Nico Patel MD [address] [place] [address] [place], [place] [address] [email or web address] Primary Oncologist Hematology 07/13/22 Stuart Saunders MD [address] [place] [address] Primary Oncologist Medical Oncology 01/22/23 Ibis Wilson, RN [address] [place] [phone] Primary Infusion Nurse 08/14/23 Luisa Vega [address] [place] [phone] Music Therapist 07/25/24 Moni Argueta, OLIVIA [address] [place] [address] Nurse Navigator 08/15/24 documented as of this encounter Additional Source Comments The information contained in this document represents components of the legal health record. It is not the complete legal health record.[facility]
--- OUTSIDE RECORDS SUMMARY | 2025-02-26 16:23 | XMS_ITS | Encounter Summary ---
Author Organization [facility] Address [address] [place] [address] Phone Care Team Providers Care Recreation Therapy Aides Teacher Name Role Phone Soco Alexis PACKING TRACTOR MACHINE OPERATOR Unavailable [phone] Keily Maldonado PEANUT SEPARATOR Unavailable Cassi CarpenterC Unavailable dylan Azra South RN Unavailable Nico Patel MD Unavailable Stuart Saunders MD Unavailable [phone] Glenna Granados PACKING TRACTOR MACHINE OPERATOR Unavailable [phone] Rachana Otto MD Primary Care Provider Ibis Wilson RN Unavailable Luisa Vega Unavailable [phone] Moni Argueta RN Unavailable [phone] Pcp, Unknown Primary Care Provider Unavailabl Soco Osullivan PACKING TRACTOR MACHINE OPERATOR Primary Care Provider [phone] Encounter Details Date Type Department Care Team (Late st Contact Info) Description 07/24/[address] [facility] CT, [place] [address] [facility], 6th [place] [address] Social History Tobacco Use Types Packs/Day Years [...] st Contact Info) Description 02/17/2025 Procedure Pass [facility] [address] [place] [address] 03/17/2025 1:[address] [facility] [address] [facility], 9th Floor, [address] [place] [address] Nico Patel MD [address] [facility] [address] [place] [address] 03/17/2025 2:00 PM EST Office Visit [facility] [address] [facility], 9th Floor, [address] [place] [address] Krysta Villagomez FNP [address] [facility] [address] [place] [address] [email or web address] 10/19/2025 12:30 PM EDT Appointment [facility] [address] [place] [address] Soco Alexis, PACKING TRACTOR MACHINE OPERATOR [address] [place] [address] documented as of this encounter Visit Diagnoses [...] documented as of this encounter Care Teams Recreation Therapy Aides Teacher Relationship Specialty Start Date End Date Rachana Otto MD [address] [place] [address] [place] [phone] [email or web address] PCP - General Family Medicine 05/31/23 10/20/24 Pcp, Unknown PCP - General 11/11/24 12/01/24 Soco Alexis NP [address] [place] [address] PCP - General Nurse Practitioner 12/02/24 Soco Alexis NP 03/02/17 12/01/24 Keily Maldonado CNP [address] [place] [address] Nurse Practitioner Medical Oncology 02/16/22 Cassi Carpenter PA-C [address] [place] [address] Physician Dynamo Tender Medical Oncology 03/22/22 08/14/24 Azra South, OLIVIA [address] [place] [address] PHCM Final Cleaner 05/09/22 04/08/24 Nico Patel MD [address] [place] [address] [place] [address] Primary Oncologist Hematology 07/13/22 Stuart Saunders MD [address] [place] [address] Primary Oncologist Medical Oncology 01/22/23 Glenna Granados NP [address] [place] [address] Nurse Practitioner Medical Oncology 03/12/23 08/14/24 Ibis Wilson RN [address] [place] [phone] Primary Infusion Nurse 08/14/23 Luisa Vega [address] [place] [phone] Music Therapist 07/25/24 Moni Argueta RN [address] [place] [address] Nurse Navigator 08/15/24 documented as of this encounter Additional Source Comments The information contained in this document represents components of the legal health record. It is not the complete legal health record.[facility]
--- OUTSIDE RECORDS SUMMARY | 2025-02-26 16:23 | XMS_ITS | Encounter Summary ---
Author Organization [facility] Address [address] [place] [phone] Phone Care Team Providers Care Supervisor Firearms Name Role Phone Soco Alexis INSTRUCTOR PRODUCT INSPECTION Unavailable [phone] Keily Maldonado CORONARY CLINICAL SPECIALIST Unavailable Cassi CarpenterC Unavailable dylan Azra South RN Unavailable Nico Patel MD Unavailable Stuart Saunders MD Unavailable [phone] Glenna Granados INSTRUCTOR PRODUCT INSPECTION Unavailable [phone] Rachana Otto MD Primary Care Provider Ibis Wilson RN Unavailable Luisa Vega Unavailable [phone] Moni Argueta RN Unavailable Pcp, Unknown Primary Care Provider Unavailabl Soco Osullivan INSTRUCTOR PRODUCT INSPECTION Primary Care Provider [phone] Encounter Details Date Type Department Care Team (Late st Contact Info) Description 07/24/2023 Procedure Pass [facility] [place] [address] [facility], 6th [place] [address] Social History Tobacco Use Types Packs/Day Years [...] st Contact Info) Description 02/17/2025 Procedure Pass [facility], [facility] [address] [place] [address] 03/17/2025 1:00 PM EST Infusion [facility] [address] [facility], 9th Floor, [address] [place] [address] Nico Patel MD 55 [facility] [address] [place] [address] 03/17/2025 2:00 PM EST Office Visit [facility] [address] [facility], 9th Floor, [address] [place] [address] Krysta Villagomez FNP [address] [facility] 9YAW 9 [place] [address] 10/19/2025 12:30 PM EDT Appointment [facility] [address] [place] [address] Soco lAexis, INSTRUCTOR PRODUCT INSPECTION [address] [place] [address] documented as of this encounter Visit Diagnoses [...] as of this encounter Care Teams Supervisor Firearms Relationship Specialty Start Date End Date Rachana Otto MD [address] [place] [address] [place] [phone] [email or web address] PCP - General Family Medicine 05/31/23 10/20/24 Pcp, Unknown PCP - General 11/11/24 12/01/24 Soco Alexis NP [address] [place] [address] PCP - General Nurse Practitioner 12/02/24 Soco Alexis NP 03/02/17 12/01/24 Keily Maldonado CNP [address] [place] [address] Nurse Practitioner Medical Oncology 02/16/22 Cassi Carpenter PA-C [address] [place] [address] Physician Manager Market Medical Oncology 03/22/22 08/14/24 Azra South, OLIVIA [address] [place] [address] PHCM Leading Firefighter 05/09/22 04/08/24 Nico Patel MD [address] [place] [address] [address] Primary Oncologist Hematology 07/13/22 Stuart Saunders MD [address] [place] [address] Primary Oncologist Medical Oncology 01/22/23 Glenna Granados NP [address] [place] [address] Nurse Practitioner Medical Oncology 03/12/23 08/14/24 Ibis Wilson RN [address] [place] [phone] Primary Infusion Nurse 08/14/23 Luisa Vega [address] [place] [phone] Music Therapist 07/25/24 Moni Argueta RN [address] [place] [address] Nurse Navigator 08/15/24 documented as of this encounter Additional Source Comments The information contained in this document represents components of the legal health record. It is not the complete legal health record.[facility]
--- OUTSIDE RECORDS SUMMARY | 2025-02-26 16:23 | XMS_ITS | Encounter Summary ---
Author Organization [facility] Address [address] [place] [address] Phone Care Team Providers Care Toy Department Manager Name Role Phone Soco Alexis AIRCRAFT DETAIL DRAFTSPERSON Unavailable [phone] Keily Maldonado CAKE PUNCHER Unavailable Cassi CarpenterC Unavailable [email or web address] Nico Patel MD Unavailable Stuart Saunders MD Unavailable [phone] Glenna Granados AIRCRAFT DETAIL DRAFTSPERSON Unavailable [phone] Rachana Otto MD Primary Care Provider Ibis Wilson RN Unavailable Luisa Vega Unavailable [phone] Moni Argueta RN Unavailable [phone] Pcp, Unknown Primary Care Provider Unavailabl e Soco Alexis AIRCRAFT DETAIL DRAFTSPERSON Primary Care Provider [phone] Encounter Details Date Type Department Care Team (Late st Contact Info) Description 07/22/2024 Procedure Pass [facility] [place] [address] [facility], 6th [place] [address] Social History Tobacco Use Types Packs/Day Years [...] 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 Wish to be (Past 1 Month) No 025 10:00 PM EDT Mary Leigh RN 2. Non-Specific Active Suici jared Thoughts (Past 1 Month) No 07/22/2024 10:00 PM EDT Leann Leigh RN 6. Suicidal Behavior (Lifetime) No 5 10:00 PM EDT Mary Leigh, RN documented as of this encounter Plan of Treatment Upcoming Encounters Date Type Department Care Team (Late st Contact Info) Description 02/17/2025 Procedure Pass [facility] [address] [place] [address] 03/17/2025 1:00 PM EST Infusion [facility] FOR [facility] [address] [facility], 9th Floor, [address] [place] [address] Nico Patel MD [address] [place] [address] 03/17/2025 2:00 PM EST Office Visit [facility] 32 [facility], 9th Floor, [address] [place] [address] Krysta Villagomez FNP [address] [facility] [address] [place] [address] [email or web address] 10/19/2025 12:30 PM EDT Appointment [address] [address] Soco Alexis AIRCRAFT DETAIL DRAFTSPERSON [address] [place] [address] documented as of this encounter Visit Diagnoses [...] documented as of this encounter Care Teams Toy Department Manager Relationship Specialty Start Date End Date Rachana Otto MD [address] [place] [address] [place] [phone] [email or web address] PCP - General Family Medicine 05/31/23 10/20/24 Pcp, Unknown PCP - General 11/11/24 12/01/24 Soco Alexis AIRCRAFT DETAIL DRAFTSPERSON [address] [place] [address] PCP - General Nurse Practitioner 12/02/24 Soco Alexis NP 03/02/17 12/01/24 Keily Maldonado CNP [address] [place] [address] [email or web address] Nurse Practitioner Medical Oncology 02/16/22 Cassi Carpenter PA-C [address] [place] [address] [email or web address] Physician Senior Training Specialist Medical Oncology 03/22/22 08/14/24 Nico Patel MD [address] [place] [address] 9[place], [place] [address] [email or web address] Primary Oncologist Hematology 07/13/22 Stuart Saunders MD [address] [place] [address] [email or web address] Primary Oncologist Medical Oncology 01/22/23 Glenna Granados AIRCRAFT DETAIL DRAFTSPERSON [address] [place] [address] Nurse Practitioner Medical Oncology 03/12/23 08/14/24 Ibis Wilson RN [address] [place] [phone] [email or web address] Primary Infusion Nurse 08/14/23 Luisa Vega [address] [place] [phone] [email or web address] Music Therapist 07/25/24 Moni Argueta RN 30 [place] [address] [email or web address] Nurse Navigator 08/15/24 documented as of this encounter Additional Source Comments The information contained in this document represents components of the legal health record. It is not the complete legal health record.[facility]
--- OUTSIDE RECORDS SUMMARY | 2025-02-26 16:23 | XMS_ITS | Clinical Summary ---
Author Organization [facility] Address [address] [place] [address] Phone Care Team Providers Care Equipment Services Associate Name Role Phone Keily Maldonado MIS DIRECTOR Unavailable Nico Patel MD Unavailable Stuart Saunders MD Unavailable [phone] Ibis Wilson RN Unavailable Luisa Vega Unavailable [phone] Moni Argueta RN Unavailable [phone] Soco Alexis NP Primary Care Provider [phone] Allergies Active Allergy Reactions Criticality Noted Date Comments Adhesive Tape-Silicones Anxiety,Dermatit is,Feeling Irritable,Hives,Itching,Pain ,Rash,Rash with Skin Desquamation,Swelling Low 05/09/2022 Allergen Yej-Xehlf-Quidu Bee Anaphylaxis High 08/05/2023 Amoxicillin-Pot Clavulanate Rash [...] 2 mg in the daytime. 023 Active omeprazole (PRILOSEC) 40 MG capsule Take [...] of breath/dyspnea. 120 mL 1 025 Active guaiFENesin (ROBITUSSIN) 100 mg/5 mL [...] (two) times a day. 60 tablet 11 025 Active fluticasone propionate (FLONASE) 50 mcg/actuation nasal [...] day as needed for cough. 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 Active albuterol 90 mcg/actuation inhaler Inhale 2 puffs into the lungs every 6 (six) hours as needed for wheezing. 8 g Active nortriptyline (PAMELOR) 25 MG capsuleIndicati ons:Nausea,Func [...] a glass of water. 60 tablet 11 Active tirzepatide, weight loss, (ZEPBOUND) 7.5 mg/0.5 mL subcutaneous pen Inject 0.5 mL (7.5 mg total) under the skin once a week for 12 doses. 2 mL 2 025 2024 Active labetaloL (TRANDATE) 100 MG tablet TAKE 1 TABLET(100 MG) BY MOUTH TWICE DAILY 60 tablet 2 Active belumosudil (REZUROCK) 200 mg tablet Take 1 tablet (200 mg total) by mouth 2 (two) times a day. Take with food around the same time each day. Swallow tablet whole do not cut, crush or chew with a glass of water. 60 tablet 11 024 2024 Discontinued valACYclovir (VALTREX) 1000 MG tablet Take 1 tablet (1,000 mg total) by mouth daily. 90 tablet 3 024 2024 labetaloL (TRANDATE) 100 MG tablet TAKE 1 TABLET(100 MG) BY MOUTH TWICE DAILY 60 tablet 2 025 2024 Discontinued tirzepatide, weight loss, (ZEPBOUND) [...] be different from the original. 06/12/24 bin [id number] meddadv [id number] MATTY PA FOR ZEPBOUND APPROVED 08/28/24 TO 11/26/25 TO [...] PNA w/ influenza A & asthma exacerbation. [facility] 07/22-07/26 for influenza B infection w/asthma exacerbation. [facility] 10/09 -or asthma exacerbation w/ unrevealing infectious w/u, treated w inhalers and steroids. Re-presented 10/13 to [facility] ED on 10/13 w/ increased dyspnea/orthopnea, cough, chest pain, and fevers (102.5). Started on cefepime (10/13-10/15) & SoluMedrol 125 mg IV x1. Transfer to [facility]. Doxycyline started 10/13 for empiric CAP coverage. [...] Parainfluenza URI w asthma exacerbation Rhinovirus 04/2024. [facility] ICU 05/2024 w/ multifocal PNA w/ influenza A & asthma exacerbation. [facility] 07/22-07/26 for influenza B infection w/asthma exacerbation. [facility] 6/ -67for asthma exacerbation w/ unrevealing infectious w/u, treated w inhalers and steroids. Re-presented 10/13 to [facility] ED on 10/13 w/ increased dyspnea/orthopnea, cough, chest pain, and fevers (102.5). Started on cefepime & SoluMedrol 125 mg IV x1. Transfer to [facility]. Doxycyline started 10/13 for empiric CAP coverage. [...] w/ asthma exacerbations. Rhinovirus 04/2024. Admitted to [facility] ICU late May 2024 w/subsequent [facility] transfer for multifocal PNA w/ influenza A infection w/ asthma exacerbation. Re-admitted to [facility] 07/22-07/26 for influenza B infection w/asthma exacerbation. Recent admitted to [facility] 10/09 for asthma exacerbation w/ unrevealing infectious w/u, for which pt received inhalers and steroids.. Discharged 10/11, but re-presented to [facility] ED on 10/13 w/ increased dyspnea/orthopnea, cough, chest pain, and fevers (101.2F at home, 102.5F in ED). Bld cx's drawn x2, limited RVP (-) for Flu A, Flu B, & Covid-19. She was started on cefepime & received SoluMedrol 125 mg IV x1. CXR (10/13) showed low b/l lung volumes w/bibasilar bronchovascular crowding. On transfer to [facility], exam notable for diffuse expiratory wheezes & [...] #Anxiety/Depression/PTSD/Bipolar/ Panic Attacks Was followed by Psychiatry THERMOPLASTIC TECHNICIAN Jenn Correa closely for ~20years with stable psych regimen. She has moved and connected Vicki to a new provider for medication management and she also has a therapist she sees outpt. - cont home caplyta 42mg daily - Hydroxyzine 100mg nightly - Prazosin 2mg nightly - Xanax 2mg TID (per CLINICAL STUDIES SPECIALIST script); reports she takes this nightly IN [...] O2 sat > 92%. On transfer to [facility], she is satting 98% on 3L NC. [...] O2 sat > 92%. On transfer to [facility], she is satting 98% on 3L NC. [...] O2 sat > 92%. On transfer to [facility], she is satting 98% on 3L NC. [...] higher level of care - discussing with [facility] as may need transfer - discussed with [...] discussed with ID and will add doxy. Timothy added this AM. Pharmacy to dose with [...] toxin, adenovirus and norovirus are through the [facility] and would need to be ordered [...] fungal prophylaxis; Fluconazole -Plan to transfer to [facility] for higher level of care Assessment & [...] treatment for T-cell lymphoma. Treatment guided by [facility] oncology after her recent admission, see full [...] for concern for sepsis. On evaluation at [facility], she has no signs of sepsis. Blood [...] for concern for sepsis. On evaluation at [facility], she has no signs of sepsis. Blood [...] for concern for sepsis. On evaluation at [facility], she has no signs of sepsis. Blood cultures remain negative. Procalcitonin is low at 0.15. CXR is clear. Clinically she is non-toxic appearing with no clear source of bacterial infection. Will therefore hold antibiotics and trend vitals and clinical exam. She continues to have wheeze on exam so will send an extended respiratory viral panel (not sent at [facility]) looking for viral co-infection. 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 Of [...] loose stools a day. She presented to [facility] ED on 09/18 for ongoing fevers. She was initially started on vanc and cefepime given concern for a possible emerging PNA on CXR. That evening of 09/18, she became hypotensive and SOB. A rapid response was called. She was givn IVF resuscitation and started on pressors. She was transferred from [facility] ICU to [facility] ICU. 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 She was discharged home on [...] & clonidine 0.2 mg and then at 2000 she takes trazodone 400 mg, prazosin 2 mg, and xanax 6mg (2mg and 4mg at 7pm and HS). Clonidine and trazodone d/c at admission per psych guidance. On 09/12, noted to have some ocular dyskinesia b/l, nystagmus and new mild b/l hand tremors. Neuro exam with no focal deficits. 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 - HOLD Adderall - Psych [...] SoluMedrol 125 mg IV x1 10/13 in [facility] ED. NC CT chest---ILD imaging focus (10/14) w/o significant air trapping. - see management of exacerbation above - Outpatient team to consider repeat PFTs # HTN: Previously on amlodipine, which was stopped given CP. Labetalol started 12/2023 w/ good control. - Cont labetalol 100 mg PO BID w/ parameters #GERD - Continue Omeprazole home regimen #Anxiety/Depression/PTSD/Bipolar/ Panic Attacks: Was followed by Psychiatry THERMOPLASTIC TECHNICIAN Jenn Correa closely for ~20years with stable [...] SoluMedrol 125 mg IV x1 10/13 in [facility] ED. NC CT chest---ILD imaging focus (10/14) w/o significant air trapping. - see management of exacerbation above - Outpatient team to consider repeat PFTs # HTN: Previously on amlodipine, which was stopped given CP. Labetalol started 12/2023 w/ good control. - Cont labetalol 100 mg PO BID w/ parameters #GERD - Continue Omeprazole home regimen #Anxiety/Depression/PTSD/Bipolar/ Panic Attacks: Was followed by Psychiatry THERMOPLASTIC TECHNICIAN Jenn Correa closely for ~20years with stable [...] SoluMedrol 125 mg IV x1 10/13 in [facility] ED. - Start prednisone 50 mg daily [...] #Anxiety/Depression/PTSD/Bipolar/ Panic Attacks: Was followed by Psychiatry THERMOPLASTIC TECHNICIAN Jenn Correa closely for ~20years with stable [...] #Anxiety/Depression/PTSD/Bipolar/ Panic Attacks: Was followed by Psychiatry THERMOPLASTIC TECHNICIAN Jenn Correa closely for ~20years with stable [...] #Anxiety/Depression/PTSD/Bipolar/ Panic Attacks: Was followed by Psychiatry THERMOPLASTIC TECHNICIAN Jenn Correa closely for ~20years with stable [...] #Anxiety/Depression/PTSD/Bipolar/ Panic Attacks: Was followed by Psychiatry THERMOPLASTIC TECHNICIAN Jenn Correa closely for ~20years with stable [...] #Anxiety/Depression/PTSD/Bipolar/ Panic Attacks: Was followed by Psychiatry THERMOPLASTIC TECHNICIAN Jenn Correa closely for ~20years with stable [...] EDT): #Anxiety/Depression/PTSD/Bipolar/Panic Attacks: #ADHD Followed by Psychiatry THERMOPLASTIC TECHNICIAN Jenn Correa closely for ~20years with stable psych med regimen of Capylta 42mg daily, Hydroxyzine 100mg nightly, Prazosin 2mg nightly, Xanax 6mg nightly, and Adderall 30mg BID (confirmed with patient and outpatient prescriber). Home Caplyta has been dose reduced to 21mg daily due to drug interactions. Patient does report increased irritability and anxiety while being hospitalized. - Previously followed outpatient w/ lace burn out tender Jenn Correa - Low threshold to involve [...] PM EDT): #Anxiety/Depression/PTSD/Bipolar/Panic Attacks: #ADHD Follows Psychiatry THERMOPLASTIC TECHNICIAN Jenn Correa closely for ~20years with stable [...] SCT treatment. - Appreciate input from outpatient lace burn out tender Jenn Correa who is readily available to assist in care - Will try to maintain home dosing per Dr. 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 Admitting provider spoke with patient's [facility] stem cell physician Dr. Patel, who reviewed laboratory workup including CBC, CMP, chest x-ray, suspected mild leukopenia be secondary to a viral illness more so than bacterial infection contributing to asthma exacerbation, recommended to continue general therapy with steroids 40 mg for additional 4 days, does not require prolonged taper course, further infectious workup, monitoring off antibiotics, did recommend to continue patient's chronic sxcia-wsohwa-xjsm disease medications. Did iterate that if patient's respiratory status worsens, worsening laboratory exam, they have accepted her for transfer given her extensive treatment at [facility]. -Continue Bactrim and Valtrex for prophylaxis. 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 -Spoke with patient's [facility] stem cell physician Dr. Patel, who reviewed laboratory workup including CBC, CMP, chest x-ray, suspected mild leukopenia be secondary to a viral illness more so than bacterial infection contributing to asthma exacerbation, recommended to continue general therapy with steroids 40 mg for additional 4 days, does not require prolonged taper course, further infectious workup, monitoring off antibiotics, did recommend to continue patient's chronic lutnw-nrwwna-knzh disease medications. Did iterate that if patient's respiratory status worsens, worsening laboratory exam, they have accepted her for transfer given her extensive treatment at [facility]. -Continue Bactrim and Valtrex for prophylaxis. Assessment [...] 06/19, she was also recently seen at [facility] for second opinion. Labs with no [...] with her mental health provider since her [facility] discharge who recommended discontinuation of Zyprexa and [...] T cell lymphoma of lymph nodes of [facility] tiple sites 01/30/2022 Assessment & Plan (10/05/2023 [...] second opinion scheduled with Dr. Casper in [place]. She has been tolerating current therapy without any significant side effects and will continue as planned. Dr. Saunders is also trying to get the approval for Romidepsin for her RECOMMENDATIONS: Continue current therapy She has second opinion scheduled in [place] next week Follow-up with Dr. 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 Recommendation to consult [facility] oncology team with updates and treatment plans. [...] 09/04 pt reports worsening mucositis, required dilaudid METALIZER with good effect. METALIZER discontinued 09/11. 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 Unexplained weight [...] headache of approximately 2 weeks duration beginning CLINICAL STUDIES SPECIALIST that is described as dull, wave-like and [...] CT scan that documented cardiac involvement at [facility]. Since her mother also has sarcoid cardiac involvement and sees a rn radiology as she believes in [place] I requested her to check with her mother the name of this rn radiology so I could coordinate her personal assessment by the same rn radiology. I would defer treatment plan until we [...] are unremarkable. Will await PFT results from [facility] recently performed (have been normal in the [...] Type Department Care Team Description 02/18/2025 Refill [facility] [address] [place] [address], 9th Floor, [address] [place] [address] Krysta Villagomez FNP Medication Refill 02/17/2025 Transcribe Orders Virtual Department [address] [place] [address] Soco Alexis NP Breast screening (Primary Dx) 02/12/2025 8:09 AM EDT - 02/12/2025 11:59 PM EDT Hospital Encounter [facility] [address] [place] [address] Krysta Villagomez FNP Discharge Disposition: Home or Self Care 02/12/2025 Orders Only [facility] [address] [place] [address], 9th Floor, [address] [place] [address] Krysta Villagomez FNP 02/12/2025 Orders Only [facility] [address] [place] [address], 9th Floor, [address] [place] [address] Krysta Villagomez FNP 02/05/2025 Orders Only [facility] MEDICINE VIRTUAL DEPARTMENT [address] [place] [phone] Keily Gómez, MIS DIRECTOR 02/04/2025 Telephone [facility] [address] [place] [address], [address] [place] [address] Gudelia Eason MD Medication Prior Authorization 01/30/2025 3:30 PM EDT Telemedicine [facility] [address] [place] [address], 9th Floor, [address], [place] [address] Nico Patel MD 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 (Primary Dx); S/P allogeneic bone marrow transplant; Graft vs host disease; Sarcoidosis of lymph nodes; Sacral insufficiency fracture with delayed healing 01/28/2025 11:44 AM EDT - 01/28/2025 11:59 PM EDT Hospital Encounter [facility] [address] [place] [address] Krysta Villagomez FNP Discharge Disposition: Home or Self Care 01/28/2025 Telephone [facility] [address] [place] [address], 9th Floor, [address], [place] [address] Ita Juan RN 01/27/2025 Orders Only [facility] VIRTUAL DEPARTMENT [address] [place] [phone] Keily Gómez, MIS DIRECTOR 01/19/2025 Orders Only [facility] [address] [place] [address], [address] Floor, [address] [place] [address] Krysta Villagomez FNP 01/06/2025 1:00 PM EDT Telemedicine [facility] [address] [place] [address], 5[address] [place] [address] Gudelia Eason MD Chronic GVHD (Primary Dx); Irritable bowel syndrome with diarrhea; Functional dyspepsia 01/01/2025 4:00 PM EDT Telemedicine [facility] [address] [facility], 9th Floor, [address] [place] [address] Krysta Villagomez FNP S/P allogeneic bone marrow transplant (Primary Dx); Localized edema; 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; Graft vs host disease; High risk medications (not anticoagulants) long-term use 01/01/2025 Procedure Pass [facility] Echo Lab [address] [place] [address] 01/01/2025 Orders Only [facility] [address] [place] [address], 9th Floor, [address] [place] [address] Nico Patel MD 12/25/2024 2:04 PM EDT - 12/25/2024 11:59 PM EDT Hospital Encounter [facility] [address] [place] [address] Keily Gómez, AUBREE Discharge Disposition: Home or Self Care 12/17/2024 1:45 PM EDT - 12/17/2024 2:45 PM EDT Surgery [facility] MARK 4 ENDO DEPT [address] [facility], [address] [place] [address] Chan Caballero MD COLONOSCOPY 12/17/2024 11:57 AM EDT - 12/17/2024 3:33 PM EDT Hospital Encounter [facility] MARK 4 ENDO DEPT [address] [facility], 4th [place] [address] Chan Caballero MD Discharge Disposition: Home or Self Care 12/17/2024 Procedure Pass [facility] MARK 4 ENDO DEPT [address] [facility], 4th [place] [address] 12/16/2024 2:00 PM EDT Office Visit [facility] [address] [facility], 9th Floor, [address] [place] [address] Keily Gómez, MIS DIRECTOR S/P allogeneic bone marrow transplant (Primary Dx); 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 12/16/2024 1:00 PM EDT Infusion [facility] [address] [place] [address], 9th Floor, [address] [place] [address] Nico Patel MD Jordan, Donna, RN 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; S/P allogeneic bone marrow transplant; Graft vs host disease 12/15/2024 Telephone [facility] [address] [place] [address], 9th Floor, [address] [address] Ita Juan RN 12/12/2024 Telephone [facility] [address] [place] [address], 9th Floor, [address], [place] [address] Blessing Jin, OLIVIA 12/12/2024 Orders Only [facility] [address] [place] [address], 9th Floor, [address] [place] [address] Bee Stern CNP 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 (Primary Dx); S/P allogeneic bone marrow transplant 12/12/2024 Orders Only [facility] [address] [place] [address], 9th Floor, [address] [place] [address] Nico Patel MD 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 (Primary Dx); S/P allogeneic bone marrow transplant; Graft vs host disease 12/11/2024 5:24 PM EDT - 12/11/2024 11:59 PM EDT Hospital Encounter [address] [address] Marilu Andrew NP Discharge Disposition: Home or Self Care 12/10/2024 Orders Only [facility] [address] [place] [address], 9th Floor, [address], [place] [address] Nico Patel MD 12/02/2024 11:34 AM EDT - 12/02/2024 11:59 PM EDT Hospital Encounter [address] [address] Soco Alexis, JADE Discharge Disposition: Home or Self Care 12/02/2024 Ancillary Orders [address] [address] Soco Alexis, THERMOPLASTIC TECHNICIAN Acute pain of right shoulder (Primary Dx); Chest pain varying with breathing 11/26/2024 Documentation [facility] [address] [place] [phone] Juani Booth RN 11/18/2024 Procedure Pass [address] [address] from Last 3 Months Immunizations Immunization Administration [...] 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[employer]; 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 [...] st Contact Info) Description 02/17/2025 Procedure Pass [facility], [facility] [address] [place] [address] 03/17/2025 1:00 PM EST Infusion [facility] [address] [facility], 9th Floor, [address] [place] [address] Nico Patel MD [address] [facility] [address] [place] [address] 03/17/2025 2:00 PM EST Office Visit [facility] [address] [facility], 9th Floor, [address] [place] [address] Krysta Villagomez FNP [address] [facility] [address] [place] [address] [email or web address] 10/19/2025 12:30 PM EDT Appointment [facility], [facility] [address] [place] [address] Soco Alexis, THERMOPLASTIC TECHNICIAN [address] [place] [address] Health Maintenance Due Date Last Done Comments [...] this topic Medical Devices Implanted Type Area Shellfish Weigher Device Identifier Shelf Expiration Date Model / Serial / Lot Port Powerport Isp 8fr Injectable [place] Polyurethane Catheter Implant Soft Silicone Body - [id number] Implanted:Qty: 1 on 02/16/2022 by Ya Graham MD at [facility] Right: Chest [employer] 04/05/2023 [id number] / / [id number] Procedures Procedure Name Priority Date/Time Associated Diagnosis [...] right shoulder Chest pain varying with breathing HEPATITIS C ANTIBODY, QUALITATIVE Routine 07/06/2022 8:39 [...] appears normal. The interventricular septum appears normal. [facility] CV ECHO ORDERABLES Final R esult * MICROALBUMIN/CREATININE, RANDOM URINE (01/28/2025 11:54 AM EDT) MICROALB/CRE RATIO NOT CALCULATED 0 - 20 mg/g Cre [facility] Comment:due to Microalbumin <1.2 01/28/2025 11:5 4 AM EDT 01/28/2025 12:13 PM EDT [facility] Jimmy Hernando NURSING SECRETARY URINE ORDERABLES Final Res ult Performing Organization Address [facility]/ZIP Co de Phone Number [address] [address] * TOTAL PROTEIN CREATININE RATIO, RANDOM URINE (01/28/2025 11:54 AM EDT) URINE TOTAL PROTEIN 7.0 mg/dL [facility] URINE CREATININE 136 mg/dL [facility] URINE TP CRE RATIO 0.05 0 - 0.19 [facility] Urine (Urine) 01/28/2025 11: 54 AM EDT 01/28/2025 12:13 PM EDT us Krysta Jimmy Hernando NURSING SECRETARY URINE ORDERABLES Final Res ult Performing Organization Address [facility] Co de Phone Number [address] [address] * LDH (01/28/2025 11:54 AM EDT) Only the most recent of3 resultswithin the time period is included. LDH 201 118 - 273 U/L [facility] Blood 01/28/2025 11:5 4 AM EDT 01/28/2025 12:13 PM EDT us Krysta Villagomez NURSING SECRETARY LAB BLOOD ORDERABLES Final Result Performing Organization Address [facility] Co de Phone Number [address] [address] * Microalbumin, Urine (01/28/2025 11:54 AM EDT) URINE MICROALBUMIN <1.2 0 - 2.3 mg/dL [facility] 01/28/2025 11:5 4 AM EDT 01/28/2025 12:13 PM EDT us Krysta Marquez Hernando NURSING SECRETARY URINE ORDERABLES Final Res ult Performing Organization Address [facility]/ZIP Co de Phone Number [address] [address] * (ABNORMAL) Comprehensive metabolic panel (01/28/2025 11:54 AM EDT) Only the most recent of3 resultswithin the time period is included. SODIUM 139 133 - 146 mmol/L [facility] POTASSIUM 4.0 3.3 - 5.1 mmol/L [facility] CHLORIDE 106 96 - 108 mmol/L [facility] CO2 21 21 - 35 mmol/L [facility] BUN 10 6 - 19 mg/dL [facility] CREATININE 0.90 0.5 - 1.5 mg/dL [facility] GLUCOSE 126(H) 70 - 99 mg/dL [facility] ALBUMIN 4.4 3.9 - 4.8 g/dL [facility] TOTAL PROTEIN 7.4 6.5 - 8.0 g/dL [facility] CALCIUM 9.4 8.4 - 10.3 mg/dL [facility] ALKALINE PHOSPHATASE 116 39 - 117 U/L [facility] TOTAL BILIRUBIN <0.2 0.0 - 1.2 mg/dL [facility] AST 32 0 - 37 U/L [facility] ALT 32 0 - 40 U/L [facility] GLOBULIN 3.0 1 - 4.8 g/dL [facility] EGFR 81 >59 mL/min/1.7 3m2 [facility] Comment:Estimated glomerular filtration rate calculated using the CKD-EPI refit equation. ANION GAP 16 10 - 20 mmol/L [facility] Blood 01/28/2025 11:5 4 AM EDT 01/28/2025 12:13 PM EDT us Krysta Villagomez NURSING SECRETARY LAB BLOOD ORDERABLES Final Result [address] [address] * (ABNORMAL) Tacrolimus level (01/28/2025 11:54 AM EDT) Only the most recent of2 resultswithin the time period is included. TACROLIMUS <2.0(L) >2.0 ng/mL [facility] Comment: Therapeutic ranges depend upon the patient's [...] 4 AM EDT 01/28/2025 12:13 PM EDT [facility] LAB BLOOD ORDERABLES Final Result Performing Organization Address [facility] de Phone Number [address] [address] * Urinalysis (01/28/2025 11:54 AM EDT) COLOR Yellow Yellow [facility] CLARITY Clear [facility] GLUCOSE Negative Negative [facility] BILI Negative Negative [facility] KETONES Negative Negative [facility] SPECIFIC GRAVITY 1.025 1.005 - 1.030 [facility] BLOOD Negative Negative [facility] PH 6.0 5.0 - 8.0 [facility] Protein-UA Negative Negative [facility] NITRITE Negative Negative [facility] Leukocyte esterase, ur Negative Negative [facility] Urine (Urine) 01/28/2025 11: 54 AM EDT 01/28/2025 12:13 PM EDT [facility] URINE ORDERABLES Final Res ult Performing Organization Address [facility] Co de Phone Number [facility] [address] [place] [address] * (ABNORMAL) CBC and differential (01/28/2025 11:54 AM EDT) Only the most recent of3 resultswithin the time period is included. WBC 5.29 4.00 - 11.00 K/uL [facility] RBC 3.55(L) 4.00 - 5.20 M/uL [facility] HGB 10.6(L) 12.0 - 16.0 g/dL [facility] HCT 32.9(L) 36.0 - 46.0 % [facility] PLT 216 150 - 450 K/uL [facility] MCV 92.7 80.0 - 100.0 fL [facility] MCH 29.9 27.0 - 31.0 pg [facility] MCHC 32.2 32.0 - 36.0 g/dL [facility] RDW 13.8 11.5 - 14.5 % [facility] MPV 8.5 8.4 - 12.0 fL [facility] NRBC 0.00 0.00 /100 WBCs [facility] ABSOLUTE NRBC 0.00 0.00 K/uL [facility] DIFF METHOD Auto [facility] NEUTS 56.3 48.0 - 76.0 % [facility] LYMPHS 31.8 18.0 - 41.0 % [facility] MONOS 8.5 4.0 - 11.0 % [facility] EOS 2.6 0.0 - 5.0 % [facility] BASOS 0.4 0.0 - 1.5 % [facility] Granulocytes, immature (%) 0.4 0.0 - 0.9 % [facility] ABSOLUTE NEUTS 2.98 1.92 - 7.60 K/uL [facility] ABSOLUTE LYMPHS 1.68 0.72 - 4.10 K/uL [facility] ABSOLUTE MONOS 0.45 0.16 - 1.10 K/uL [facility] ABSOLUTE EOS 0.14 0.00 - 0.50 K/uL [facility] ABSOLUTE BASOS 0.02 0.00 - 0.15 K/uL [facility] Granulocytes, immature 0.02 0.00 - 0.09 K/uL [facility] Blood 01/28/2025 11:5 4 AM EDT 01/28/2025 12:13 PM EDT us Krysta Villagomez NURSING SECRETARY LAB BLOOD ORDERABLES Final Result [facility] [address] [place] [address] * Magnesium (01/28/2025 11:54 AM EDT) Only the most recent of3 resultswithin the time period is included. MAGNESIUM 1.8 1.6 - 2.6 mg/dL [facility] Blood 01/28/2025 11:5 4 AM EDT 01/28/2025 12:13 PM EDT [facility] LAB BLOOD ORDERABLES Final Result Performing Organization Address [facility] Co de Phone Number [address] [address] * Immunoglobulin G (01/28/2025 11:54 AM EDT) Only the most recent of3 resultswithin the time period is included. IMMUNOGLOBULIN G 1,243 700 - 1,600 mg/dL [facility] Blood 01/28/2025 11:5 4 AM EDT 01/28/2025 12:13 PM EDT [facility] LAB BLOOD ORDERABLES Final Result Performing Organization Address [facility] de Phone Number [address] [address] * (ABNORMAL) Lipid panel (01/28/2025 11:54 AM EDT) HDL 31 mg/dL [facility] Comment: Interpretation <40 mg/dL: Low HDL cholesterol (major risk factor for CHD) Greater than or equal to 60 mg/dL: High HDL cholesterol ( negative risk factor for CHD) HDL - cholesterol is affected by a number of factors, e.g. smoking, excerise, hormones, sex and age. CHOLESTEROL 195 0 - 240 mg/dL [facility] TRIGLYCERIDES 360(H) 30 - 160 mg/dL [facility] LDL 92 50 - 129 mg/dL [facility] Comment: LDL levels in terms of risk for coronary heart disease: <100 mg/dL: Optimal 100-129 mg/dL: Near or above optimal 130-159 mg/dL: Borderline high 160-189 mg/dL: High >190 mg/dL: Very High CARDIAC RISK RATIO 6.3(H) 3.3 - 4.4 C [facility] Blood 01/28/2025 11:5 4 AM EDT 01/28/2025 12:13 PM EDT us Krysta Schultzupam Hernando NURSING SECRETARY LAB BLOOD ORDERABLES Final Result Performing Organization Address [facility]/ZIP Co de Phone Number [facility] [address] [place] [address] * Cytomegalovirus (CMV) PCR, blood (12/25/2024 2:07 PM EDT) Only the most recent of2 resultswithin the time period is included. Pathologist [facility] CMV DNA DETECT/QUANT Undetected Undetected IU/mL [facility] Comment: (NOTE) Result in log IU/mL is Undetected. ADDITIONAL INFORMATION The quantification range of this assay is 35 to 10,000,000 IU/mL (1.54 log to 7.00 log IU/mL). Testing was performed using the jai CMV test ([employer] Blood (Blood) 12/25/2024 2:0 7 PM EDT 12/25/2024 2:18 PM EDT us Keily Gómez MIS DIRECTOR NON CULTURE MICROBIOLOGY Final Result [facility] [address] [address] [place] [address] * Bilirubin, direct (12/25/2024 2:07 PM EDT) Pathologist [facility] DIRECT BILIRUBIN 0.1 0.0 - 0.2 mg/dL [facility] Blood 12/25/2024 2:07 PM EDT 12/25/2024 2:18 PM EDT us Keily Gómez [facility] LAB BLOOD ORDERABLES Mloly keller Result [address] [address] * ENDOSCOPY, COLON (12/17/2024 2:22 PM EDT) 12/17/2024 2:22 PM EDT Narrative Transcriptions Chan Caballero MD - 12/17/2024 2:22 PM EDT Gastrointestinal Endoscopy Unit Patient Name: Vicki Moreno Exam Date: 12/17/2024 2:22 PM Date of : 1980 Admit Type: Outpatient Age: 43 Room: [place] [address] Gender: Female Note Status: Finalized Attending MD: [...] bowel preparation was evaluated using the BBPS ([place] Bowel Preparation Scale) with scores of: Right [...] the procedure was stable. Chan Caballero MD, [id number] 12/17/2024 2:47:20 PM The attending physician was present throughout the entire procedure. Anjali Rutledge MD, [id number] Number of Addenda: 0 Note Initiated On: 12/17/2024 2:22 PM us Rachana Otto MD GI PROCEDURE ORDERABLES Molly l Result * Anatomic Pathology (12/17/2024 2:05 PM EDT) [place] [address] Surgical Pathology Report Patient Name: PARENTVICKI : 1980 (Age: 43) Sex: F Location: [facility] Institution: [facility] Date of Operation: 12/17/2024 Date of Reported: [...] includes medication effects (MMF) or very mild nlfun-pmmlsi-smhk disease. No viral cytopathic effects identified. Immunohistochemical stains for CMV are pending and will be reported as an addendum. The diagnosis was communicated to Drs. Gordon Caballero, Jamin Rutledge, and Kia Eason by Dr. Jamin Mcclure [...] negative. CLINICAL HISTORY Nausea Functional diarrhea GVHD (cawhv-msdzzx-rmhv disease) Rule out GVHD SPECIMENS SUBMITTED: A: STOMACH BIOPSY B: DUODENUM BIOPSY C: COLON BIOPSY, RANDOM GROSS DESCRIPTION Received 3 containers each labeled Tiffanie, Vicki and ) A. Received in formalin [...] Immunohistochemical and in-situ hybridization tests performed at [facility] have been developed and their performance characteristics determined by the Immunohistochemistry Laboratories in the Department of Pathology at [facility]. They have not been cleared or approved by the U.S.Food and Drug Administration (FDA); the FDA has determined that such clearance or approval is not necessary. [facility] Addendum A. STOMACH BIOPSY: Immunohistochemical stains for H. pylori and CMV are negative.B. DUODENUM BIOPSY: An immunohistochemical stain for CMV is negative.C. COLON BIOPSY, RANDOM: An immunohistochemical stain for CMV is negative. [facility] Clinical History Nausea Functional diarrhea GVHD (bqlbe-wlpdnt-vwln disease) Rule out GVHD [facility] Final Diagnosis A. STOMACH BIOPSY: Gastric antral [...] includes medication effects (MMF) or very mild fzmnk-gtclio-utvg disease. No viral cytopathic effects identified. Immunohistochemical stains for CMV are pending and will be reported as an addendum. The diagnosis was communicated to Drs. Gordon Caballero, Jamin Rutledge, and Kia Eason by Dr. Jamin Mcclure via email 12/18/2024 at 11:03 am. [facility] Gross Description Received 3 containers each labeled [...] cm. Wrapped and submitted entirely in C1. [facility] Conversion Type 12/17/2024 2 :05 PM EDT 12/17/2024 4:44 PM EDT us Chan Caballero MD PATHOLOGY ORDERABLES Edited Re sult - Final [facility] [address] [place] [address] * ENDOSCOPY PROCEDURE (12/17/2024 2:00 PM EDT) 12/17/2024 2:00 PM EDT Narrative Transcriptions Chan Caballero MD - 12/17/2024 2:00 PM EDT Gastrointestinal Endoscopy Unit Patient Name: Vicki Moreno Exam Date: 12/17/2024 2:00 PM Date of : 1980 Admit Type: Outpatient Age: 43 Room: [place] [address] Gender: Female Note Status: Finalized Attending MD: [...] the procedure was stable. Chan Caballero MD, [id number] 12/17/2024 2:21:58 PM The attending physician was present throughout the entire procedure. Anjali Rutledge MD, [id number] Number of Addenda: 0 Note Initiated On: 12/17/2024 2:00 PM CC Letter to: Gudelia Eason MD (CC) Rachana Otto MD GI PROCEDURE ORDERABLES Molly l Result * Poct Urine HCG (12/17/2024 1:27 PM EDT) HCG, urine Negative, Internal QCs acceptable Negative 12/17/2024 1:27 PM EDT Chan Caballero MD POINT OF CARE TEST ORDERABLES [...] STIR sequence. Discs and Endplates: There is xzgu-hr-stwsnepb loss of disc height and signal at [...] the STIRsequence. Discs and Endplates: There is lcbg-io-losjydvr loss of disc height andsignal at L4-L5. [...] Andrew NP IMG MR XSPECIALTY Final Result * XR [...] clinician's provided indication for this examination in [facility]: Pain COMPARISON: 10/13/2024 FINDINGS: No displaced [...] clinician's provided indication for this examination in [facility]:Pain COMPARISON: 10/13/2024 FINDINGS: No displaced right-sided rib fracture identified. PA evaluation of the chest performed. Lung volumes are low. No convincingevidence for lobar pneumonia or pulmonary edema. No significant pleuraleffusions or pneumothorax. Cardiac mediastinal silhouette appears stable.Right-sided chest port with distal tip near the atrial caval junction.. IMPRESSION: No displaced right-sided rib fracture identified. Soco Alexis NP IMG XR CHEST Final Result * Hepatitis C antibody, qualitative (07/06/2022 8:39 PM EST) HCV NON-REACTIV E NON-REACTI VE [facility] Blood 07/06/2022 8:39 PM EST 07/06/2022 8:45 PM EST us Kell Morel DO LAB BLOOD ORDERABLES Final Re sult [address] [address] * Pap Smear (02/10/2021 12:00 AM EDT) 02/10/2021 02/11/2021 9:0 9 AM EDT Narrative SEE NARRATIVE - 02/22/2021 3:15 PM EDT [address] [address] Cheese Production Supervisor: Katerine Monge MD CERAMIC ENGINEER Cytology Report FINAL DIAGNOSIS A. PAP SMEAR [...] 52, 56, 58, 59, 66, 68) by [employer] On[employer]arity HR-HPV analysis. Clinical correlation is advised. This HPV test was performed at [facility], [address] [place] [address]. This test has been FDA approved for SurePath cervical cytology specimens. The accuracy and precision of this test for all other specimen sources has been verified in the Cytopathology Laboratory of the [facility] and has not been cleared or approved by the U.S. Food and Drug Administration. Clinical correlation is advised. CLINICAL HISTORY Date of Last Menstrual Period: Not Provided Menstrual History: Unknown Other Clinical Conditions: Screening Pap SPECIMEN SOURCE A: PAP SMEAR (SUREPATH) CE Patient Name: VICKI MORENO : 1980 (Age: 40) Sex: F Institution: [facility] Date of Collection: 02/10/2021 Date of Reported: 02/22/2021 15:15 Results to: Soco Alexis NP us Soco Alexis NP CYTOLOGY ORDERABLES Final Resul t SEE NARRATIVE from Last 3 Months or Most Recently Relevant to Health Maintenance Insurance [place] [address] MEDICARE PART A & [place] [address] MEDICARE PART A & B [place] B Advance Directives For more information, please contact: [phone] (9AM - 5PM [facility], Sunday-Sunday) Documents on File Type Date Recorded Patient Manager Of Product Expl anation Healthcare Proxy 09/19/2022 4:39 PM Sophia LessardShaw n Parent * Full Code (Latest Code [...] Agent (Proxy form on file) Care Teams Equipment Services Associate Relationship Specialty Start Date End Date Soco Alexis NP [address] [place] [address] PCP - General Nurse Practitioner 12/02/24 Keily Maldonado CNP [address] [place] [address] [email or web address] Nurse Practitioner Medical Oncology 02/16/22 Nico Patel MD [address] [place] [address], [place] [address] Primary Oncologist Hematology 07/13/22 Stuart Saunders MD [address] [place] [address] [email or web address] Primary Oncologist Medical Oncology 01/22/23 Ibis Wilson RN [address] [place] [phone] Primary Infusion Nurse 08/14/23 Luisa Vega [address] [place] [phone] [email or web address] Music Therapist 07/25/24 Moni Argueta RN [address] [place] [phone] [email or web address] Nurse Navigator 08/15/24 Additional Source Comments The information contained in this document represents components of the legal health record. It is not the complete legal health record.[facility]
--- OUTSIDE RECORDS SUMMARY | 2025-02-26 16:23 | XMS_ITS | Encounter Summary ---
Author Organization [facility] Address [address] [place] [address] Phone Care Team Providers Care Help Desk Support Name Role Phone Soco Alexis DIAMOND FINISHING SUPERVISOR Unavailable [phone] Erica Keily UPSET WELDING MACHINE OPERATOR Unavailable Cassi CarpenterC Unavailable [email or web address] Azra South RN Unavailable Nico Patel MD Unavailable Stuart Saunders MD Unavailable [phone] Glenna Granados DIAMOND FINISHING SUPERVISOR Unavailable [phone] Rachana Otto MD Primary Care Provider Ibis Wilson RN Unavailable Luisa Vega Unavailable [phone] Moni Argueta RN Unavailable Pcp, Unknown Primary Care Provider Unavailabl Soco Osullivan DIAMOND FINISHING SUPERVISOR Primary Care Provider [phone] Encounter Details Date Type Department Care Team (Late st Contact Info) Description 06/18/2023 Procedure Pass [facility] 4 ENDO DEPT [address] [facility], 4th [place] [address] Social History Tobacco Use Types Packs/Day Years [...] st Contact Info) Description 02/17/2025 Procedure Pass [facility], [facility] [address] [place] [address] 03/17/2025 1:00 PM EST Infusion [facility] [address] [facility], 9th Floor, [address] [place] [address] Nico Patel MD [address] [facility] [address] [place] [address] 03/17/2025 2:00 PM EST Office Visit [facility] [address] [facility], 9th [address], [address] [place] [address] Krysta Villagomez FNP [address] [facility] [address] [place] [address] [email or web address] 10/19/2025 12:30 PM EDT Appointment [facility] [address] [place] [address] Soco Alexis, DIAMOND FINISHING SUPERVISOR [address] [place] [address] documented as of this encounter Visit Diagnoses Not on filedocumented in this encounter Additional Health Concerns Infection Onset Date Last Indicated Resolved Time C. diff 05/24/2023 05/24/2023 06/23/2023 1:21 AM EST Parainfluenza 06/06/2023 06/06/2023 06/20/2023 1:2 1 AM EST CoV-Risk Comment:Per note documentation 07/24/2023 07/24/2023 [...] for details 10/14/2024 10/14/2024 10/21/2024 1:21 AM EDT Assessment Noted Time PHQ-2 Depression Total Score: 2 05/17/19 23 10:19 AM EST documented as of this encounter Care Teams Help Desk Support Relationship Specialty Start Date End Date Rachana Otto MD [address] [place] [address] [place] [phone] [email or web address] PCP - General Family Medicine 05/31/23 10/20/24 Pcp, Unknown PCP - General 11/11/24 12/01/24 Soco Alexis DIAMOND FINISHING SUPERVISOR [address] [place] [address] PCP - General Nurse Practitioner 12/02/24 Soco Alexis DIAMOND FINISHING SUPERVISOR 03/02/17 12/01/24 Keily Maldonado CNP [address] [place] [address] Nurse Practitioner Medical Oncology 02/16/22 Cassi Carpenter PA-C [address] [place] [address] Physician Wide Load Escort Medical Oncology 03/22/22 08/14/24 Azra South, RN [address] [place] [address] PHC Supervisor Metal Placing 05/09/22 04/08/24 Nico Patel MD [address] [place] [address] [address], [place] [address] Primary Oncologist Hematology 07/13/22 Stuart Saunders MD [address] [place] [address] Primary Oncologist Medical Oncology 01/22/23 Glenna Granados NP [address] [place] [address] Nurse Practitioner Medical Oncology 03/12/23 08/14/24 Ibis Wilson, OLIVIA [address] [place] [phone] Primary Infusion Nurse 08/14/23 Luisa Vega [address] [place] [phone] Music Therapist 07/25/24 Moni Argueta, OLIVIA [address] [place] [address] Nurse Navigator 08/15/24 documented as of this encounter Additional Source Comments The information contained in this document represents components of the legal health record. It is not the complete legal health record.[facility]
--- OUTSIDE RECORDS SUMMARY | 2025-02-26 16:23 | XMS_ITS | Encounter Summary ---
Author Organization [facility] Address [address] [place] [address] Phone Care Team Providers Care Assembly Cleaner Name Role Phone Soco Alexis SYSTEMS TEST ANALYST Unavailable [phone] Keily Maldonado REGRIND MILL OPERATOR Unavailable Cassi CarpenterC Unavailable [email or web address] Nico Patel MD Unavailable Stuart Saunders MD Unavailable [phone] Glenna Granados SYSTEMS TEST ANALYST Unavailable [phone] Rachana Otto MD Primary Care Provider [phone] Ibis Wilson RN Unavailable Luisa Vega Unavailable [phone] Moni Argueta RN Unavailable [phone] Pcp, Unknown Primary Care Provider Unavailabl e Soco Alexis SYSTEMS TEST ANALYST Primary Care Provider [phone] Encounter Details Date Type Department Care Team (Late st Contact Info) Description 07/22/2024 Procedure Pass [facility] [place] 32 [facility], 6th [place] [address] Social History Tobacco Use Types Packs/Day Years [...] 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 file documented as of this encounter Functional Status * Calculated C-SSRS Risk Score (Lifetime/Recent) Answer Date of Assessment Author No Risk Indicated 07/22/2024 10:00 PM EDT Mary Solano, OLIVIA * [place] Suicide Severity Rating Scale (Screener/Recent Self-Report) Question [...] Description 02/17/2025 Procedure Pass [facility] 30 [place] [address] 03/17/2025 1:00 PM EST Infusion [facility] 32 [facility], 9th Floor, [address] [place] [address] Nico Patel MD [address] [place] [address] 03/17/2025 2:00 PM EST Office Visit [facility] 32 [facility], 9th Floor, [address] [place] [address] Krysta Villagomez FNP 32 [facility] [address]AW 9 [place] [address] [email or web address] 10/19/2025 12:30 PM EDT Appointment [address] [address] Soco Alexis SYSTEMS TEST ANALYST 230 [place] [address] documented as of this encounter Visit Diagnoses [...] documented as of this encounter Care Teams Assembly Cleaner Relationship Specialty Start Date End Date Rachana Otto MD [address] [place] [address] [place] [phone] [email or web address] PCP - General Family Medicine 05/31/23 10/20/24 Pcp, Unknown PCP - General 11/11/24 12/01/24 Soco Alexis SYSTEMS TEST ANALYST 230 [place] [address] PCP - General Nurse Practitioner 12/02/24 Soco Alexis NP 03/02/17 12/01/24 Keily Maldonado CNP [address] [place] [address] [email or web address] Nurse Practitioner Medical Oncology 02/16/22 Cassi Carpenter PA-C [address] [place] [address] [email or web address] Physician Nuclear Weapons Specialist Medical Oncology 03/22/22 08/14/24 Nico Patel MD [address] [place] [address] [place] [address] [email or web address] Primary Oncologist Hematology 07/13/22 Stuart Saunders MD [address] [place] [address] [email or web address] Primary Oncologist Medical Oncology 01/22/23 Glenna Granados SYSTEMS TEST ANALYST [address] [place] [address] Nurse Practitioner Medical Oncology 03/12/23 08/14/24 Ibis Wilson RN [address] [place] [phone] [email or web address] Primary Infusion Nurse 08/14/23 Luisa Vega [address] [place] [phone] [email or web address] Music Therapist 07/25/24 Moni Argueta RN 30 [place] [address] [email or web address] Nurse Navigator 08/15/24 documented as of this encounter Additional Source Comments The information contained in this document represents components of the legal health record. It is not the complete legal health record.[facility]
--- OUTSIDE RECORDS SUMMARY | 2025-02-26 16:24 | XMS_ITS | Encounter Summary ---
Author Organization [facility] Address [address] [place] [address] Phone Care Team Providers Care Conservation Officer Name Role Phone Soco Alexis FLIGHT ENGINEER INSTRUCTOR Unavailable [phone] Keily Maldonado COMMISSIONS COORDINATOR Unavailable Cassi CarpenterC Unavailable dylan Nico Patel MD Unavailable Stuart Saunders MD Unavailable [phone] Glenna Granados FLIGHT ENGINEER INSTRUCTOR Unavailable [phone] Rachana Otto MD Primary Care Provider Ibis Wilson RN Unavailable Luisa Vega Unavailable Moni Argueta RN Unavailable Pcp, Unknown Primary Care Provider Unavailabl e Soco Alexis FLIGHT ENGINEER INSTRUCTOR Primary Care Provider [phone] Encounter Details Date Type Department Care Team (Late st Contact Info) Description 06/04/2024 Procedure Pass [facility] Scan - [address] [address] Social History Tobacco Use Types Packs/Day Years [...] 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[employer]; 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 file documented as of this encounter Functional Status * Calculated C-SSRS Risk Score (Lifetime/Recent) Answer Date of Assessment Author No Risk Indicated 06/07/2024 11:00 PM Jenn Drake RN * [place] Suicide Severity Rating Scale (Screener/Recent Self-Report) Question [...] st Contact Info) Description 02/17/2025 Procedure Pass [facility] [address] [place] [address] 03/17/2025 1:00 PM EST Infusion [facility] 32 [facility], 9th Floor, [address] [place] [address] Nico Patel MD [address] [place] [address] 9[place] [address] 03/17/2025 2:00 PM EST Office Visit [facility] 32 [facility], 9th Floor, [address] [place] [address] Krysta Villagomez FNP 32 [facility] [address] 9 [place] [address] [email or web address] 10/19/2025 12:30 PM EDT Appointment [facility] 30 [place] [address] Soco Alexis NP 230 [place] [address] documented as of this encounter Visit Diagnoses Not on filedocumented in this encounter Additional Health Concerns Infection Onset Date Last Indicated Resolved Time CoV-Risk Comment:Per note documentation 06/04/2024 06/04/2024 2:55 PM EST Influenza B 06/04/2024 06/07/2024 06/14/2024 1:22 AM EST CoV-Risk Comment:Per note documentation 06/07/2024 06/07/2024 12:39 PM EST CDiff-Risk 07/22/2024 07/22/2024 07/23/2024 1:3 8 PM EDT Influenza A 07/22/2024 07/22/2024 07/29/2024 [...] documented as of this encounter Care Teams Conservation Officer Relationship Specialty Start Date End Date Rachana Otto MD [address] [place] [address] [place] [phone] [email or web address] PCP - General Family Medicine 05/31/23 10/20/24 Pcp, Unknown PCP - General 11/11/24 12/01/24 Soco Alexis, FLIGHT ENGINEER INSTRUCTOR [address] [place] [address] PCP - General Nurse Practitioner 12/02/24 Soco Alexis, FLIGHT ENGINEER INSTRUCTOR 03/02/17 12/01/24 Keily Maldonado CNP [address] [place] [address] [email or web address] Nurse Practitioner Medical Oncology 02/16/22 Cassi Carpenter PA-C [address] [place] [address] [email or web address] Physician Bronc Breaker Medical Oncology 03/22/22 08/14/24 Nico Patel MD [address] [place] [address] [email or web address] Primary Oncologist Hematology 07/13/22 Stuart Saunders MD [address] [place] [address] [email or web address] Primary Oncologist Medical Oncology 01/22/23 Glenna Granados FLIGHT ENGINEER INSTRUCTOR [address] [place] [address] [email or web address] Nurse Practitioner Medical Oncology 03/12/23 08/14/24 Ibis Wilson RN [address] [place] [phone] Primary Infusion Nurse 08/14/23 Luisa Vega 100 [place] [phone] Music Therapist 07/25/24 Moni Argueta RN 30 [place] [address] Nurse Navigator 08/15/24 documented as of this encounter Additional Source Comments The information contained in this document represents components of the legal health record. It is not the complete legal health record.[facility]
--- OUTSIDE RECORDS SUMMARY | 2025-02-26 16:24 | XMS_ITS | Encounter Summary ---
Author Organization [facility] Address [address] [place] [address] Phone Care Team Providers Care Urologic Nurse Name Role Phone Soco Alexis CLIENT SERVICE MANAGER Unavailable [phone] Guru Glynn MD Unavailable Soco Alexis CLIENT SERVICE MANAGER Primary Care Provider Keily Maldonado HOROLOGIST APPRENTICE Unavailable Cassi CarpenterC Unavailable [email or web address] Azra South RN Unavailable Nico Patel MD Unavailable Stuart Saunders MD Unavailable [phone] Glenna Granados CLIENT SERVICE MANAGER Unavailable [phone] Rachana Otto MD Primary Care Provider [phone] Rachana Otto MD Primary Care Provider Ibis Wilson RN Unavailable Luisa Vega Unavailable Moni Argueta RN Unavailable [phone] Pcp, Unknown Primary Care Provider Soco Uriarte CLIENT SERVICE MANAGER Primary Care Provider [phone] Encounter Details Date Type Department Care Team (Late st Contact Info) Description 02/01/2023 Procedure Pass [address] [address] Social History Tobacco Use Types Packs/Day Years [...] Contact Info) Description 02/17/2025 Procedure Pass [address] [address] 03/17/2025 1:00 PM EST Infusion [facility] 32 [facility], 9th Floor, [address] [place] [address] Nico Patel MD [address] [place] [address] [email or web address] 03/17/2025 2:00 PM EST Office Visit [facility] 32 [facility], 9th Floor, [address] [place] [address] Krysta Villagomez FNP 32 [facility] [address] 9 [place] [address] [email or web address] 10/19/2025 12:30 PM EDT Appointment [address] [address] Soco Alexis NP 230 [place] [address] documented as of this encounter Visit Diagnoses [...] documented as of this encounter Care Teams Urologic Nurse Relationship Specialty Start Date End Date Soco Alexis NP PCP - General Family Medicine 01/26/22 03/13/23 Rachana Otto MD [address] [place] [address] [email or web address] PCP - General Family Medicine 03/14/23 05/30/23 Rachana Otto MD [address] [place] [address] [place] [address] [email or web address] PCP - General Family Medicine 05/31/23 10/20/24 Pcp, Unknown PCP - General 11/11/24 12/01/24 Soco Alexis, JADE [address] [place] [address] PCP - General Nurse Practitioner 12/02/24 Soco Alexis CLIENT SERVICE MANAGER 03/02/17 12/01/24 Guru Glynn MD [address] [place] [address] [address] [place] [address] [email or web address] Primary Oncologist Medical Oncology 01/24/22 05/09/23 Keily Maldonado CNP 30 [place] [address] Nurse Practitioner Medical Oncology 02/16/22 Cassi Carpenter PA-C 30 [place] [address] Physician Scientific Software Engineer Medical Oncology 03/22/22 08/14/24 Arza South, OLIVIA 10 [place] [address] PHCM Pharmaceutical Detailer 05/09/22 04/08/24 Nico Patel MD [address] [place] [address] 9[address] [place] [address] [email or web address] Primary Oncologist Hematology 07/13/22 Stuart Saunders MD [address] [place] [address] [email or web address] Primary Oncologist Medical Oncology 01/22/23 Glenna Granados NP [address] [place] [address] [email or web address] Nurse Practitioner Medical Oncology 03/12/23 08/14/24 Ibis Wilson RN 100 [place] [address] [email or web address] Primary Infusion Nurse 08/14/23 Luisa Vega 100 [place] [address] [email or web address] Music Therapist 07/25/24 Moni Argueta, OLIVIA 30 [place] [address] [email or web address] Nurse Navigator 08/15/24 documented as of this encounter Additional Source Comments The information contained in this document represents components of the legal health record. It is not the complete legal health record.[facility]
--- OUTSIDE RECORDS SUMMARY | 2025-02-26 16:24 | XMS_ITS | Encounter Summary ---
Author Organization [facility] Address [address] [place] [address] Phone Care Team Providers Care Agriculture Laborer Name Role Phone Soco Alexis MISSION MANAGER Unavailable Keily Maldonado SCOW DERRICK OPERATOR Unavailable Cassi Carpenter PA-C Unavailable dylan Azra South RN Unavailable Nico Patel MD Unavailable [phone] Stuart Saunders MD Unavailable Glenna Granados MISSION MANAGER Unavailable [phone] Rachana Otto MD Primary Care Provider [phone] Rachana Otto MD Primary Care Provider [phone] Ibis Wilson RN Unavailable Luisa Vega Unavailable [phone] Moni Argueta RN Unavailable [phone] Pcp, Unknown Primary Care Provider Unavailabl Soco Osullivan MISSION MANAGER Primary Care Provider [phone] Encounter Details Date Type Department Care Team ([facility] Contact Info) Description 05/14/2023 Procedure Pass [address] [address] Social History Tobacco Use Types Packs/Day Years [...] 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; 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 Not on file documented as of this encounter Plan of Treatment Upcoming Encounters Date Type Department Care Team (Late Contact Info) Description 02/17/2025 Procedure Pass [facility] 30 [place] [address] 03/17/2025 1:00 PM EST Infusion [facility] 32 [facility], 9th Floor, [address] [place] [address] Nico Patel MD 55 [facility] [address] [place] [address] 03/17/2025 2:00 PM EST Office Visit [facility] 32 [facility], 9th Floor, [address] [place] [address] Krysta Villagomez FNP 32 [facility] [address] 9 [place] [address] [email or web address] 10/19/2025 12:30 PM EDT Appointment [facility] 30 [place] [address] Soco Alexis NP 230 [place] [address] documented as of this encounter Visit Diagnoses [...] documented as of this encounter Care Teams Agriculture Laborer Relationship Specialty Start Date End Date Rachana Otto MD [address] [place] [address] PCP - General Family Medicine 03/14/23 05/30/23 Rachana Otto MD [address] [place] [address] [place] [phone] [email or web address] PCP - General Family Medicine 05/31/23 10/20/24 Pcp, Unknown PCP - General 11/11/24 12/01/24 Soco Alexis MISSION MANAGER [address] [place] [address] PCP - General Nurse Practitioner 12/02/24 Soco Alexis MISSION MANAGER 03/02/17 12/01/24 Keily Maldonado CNP [address] [place] [address] [email or web address] Nurse Practitioner Medical Oncology 02/16/22 Cassi Carpenter PA-C [address] [place] [address] Physician Roll Mechanic Medical Oncology 03/22/22 08/14/24 Azra South RN [address] [place] [address] [email or web address] PHCM Wardrobe Image Consultant 05/09/22 04/08/24 Nico Patel MD [address] [place] [address] 9[place], [place] [address] Primary Oncologist Hematology 07/13/22 Stuart Saunders MD [address] [place] [address] Primary Oncologist Medical Oncology 01/22/23 Glenna Granados, MISSION MANAGER [address] [place] [address] Nurse Practitioner Medical Oncology 03/12/23 08/14/24 Ibis Wilson RN 100 [place] [address] Primary Infusion Nurse 08/14/23 Luisa Vega 100 [place] [address] Music Therapist 07/25/24 Moni Argueta RN 30 [place] [address] Nurse Navigator 08/15/24 documented as of this encounter Additional Source Comments The information contained in this document represents components of the legal health record. It is not the complete legal health record.[facility]
--- OUTSIDE RECORDS SUMMARY | 2025-02-26 16:24 | XMS_ITS | Encounter Summary ---
Author Organization [facility] Address [address] [place] [address] Phone Care Team Providers Care Interpretive Program Coordinator Name Role Phone Soco Alexis FITNESS PROFESSIONAL Primary Care Provider [phone] Soco Alexis FITNESS PROFESSIONAL Unavailable [phone] Paolo Collazo MD Unavailable [phone] Rachana Otto MD Primary Care Provider [phone] Paco Jean MD, MPH Unavailable + [phone] Guru Glynn MD Unavailable Soco Alexis FITNESS PROFESSIONAL Primary Care Provider [phone] Keily Maldonado ASBESTOS ABATEMENT WORKER Unavailable Cassi Carpenter-C Unavailable [email or web address] Azra South RN Unavailable Nico Patel MD Unavailable Paco Jean MD, MPH Unavailable + [phone] Ro HardinW Unavailable [email or web address] Myranda Lloyd Unavailable [email or web address] Stuart Saunders MD Unavailable [phone] Glenna Granados FITNESS PROFESSIONAL Unavailable [phone] Rachana Otto MD Primary Care Provider [phone] Rachana Otto MD Primary Care Provider [phone] Ibis Wilson RN Unavailable Luisa Vega Unavailable [phone] Moni Argueta RN Unavailable Pcp, Unknown Primary Care Provider UnavailSoco Hodge FITNESS PROFESSIONAL Primary Care Provider [phone] Encounter Details Date Type Department Care Team (Late st Contact Info) Description 03/03/2017 Ancillary Orders [facility] Pulmonary, Allergy and Critical Care Medicine 30 [place] [address] Andrea Jackson MD, MS 10 [facility] [address]nd [place] [address] Social History Tobacco Use Types Packs/Day Years [...] st Contact Info) Description 02/17/2025 Procedure Pass [facility] 30 [place] [address] 03/17/2025 1:00 PM EST Infusion [facility] [address] [facility], 9th Floor, [address] [place] [address] Nico Patel MD [address] [place] [address] 03/17/2025 2:00 PM EST Office Visit [facility] [address] [facility], 9th Floor, [address] [place] [address] Krysta Villagomez FNP 32 [facility] [address] 9 [place] [address] 10/19/2025 12:30 PM EDT Appointment [facility] 30 [place] [address] Soco Alexis NP 230 [place] [address] documented as of this encounter Visit Diagnoses [...] PM EDT CoV-Risk Comment:Per note documentation 09/12/2022 09/12/2022202 3 10:41 PM EDT CoV-Risk Comment:Neg covid 09/18/2022 [...] documented as of this encounter Care Teams Interpretive Program Coordinator Relationship Specialty Start Date End Date Soco Alexis FITNESS PROFESSIONAL PCP - General Family Medicine 03/02/17 02/24/20 Rachana Otto MD [address] [place] [address] PCP - General Family Medicine 02/25/20 01/25/22 Soco Alexis FITNESS PROFESSIONAL PCP - General Family Medicine 01/26/22 03/13/23 Rachana Otto MD 30 [place] [address] PCP - General Family Medicine 03/14/23 05/30/23 Rachana Otto MD [address] [place] [address] [place] [phone] [email or web address] PCP - General Family Medicine 05/31/23 10/20/24 Pcp, Unknown PCP - General 11/11/24 12/01/24 Soco Alexis, FITNESS PROFESSIONAL [address] [place] [address] PCP - General Nurse Practitioner 12/02/24 Soco Alexis FITNESS PROFESSIONAL 03/02/17 12/01/24 Paolo Collazo MD [address] [place] [address] [email or web address] Insurance Assigned Provider 06/06/19 08/13/19 Paco Jean MD, MPH [address] [place] [address] Insurance Assigned Provider 03/12/22 07/15/22 Guru Glynn MD [address] [place] [address] [address] [place] [address] [email or web address] Primary Oncologist Medical Oncology 01/24/22 05/09/23 Keily Maldonado CNP [address] [place] [address] Nurse Practitioner Medical Oncology 02/16/22 Cassi Carpenter PA-C [address] [place] [address] Physician Senior Infrastructure Architect Medical Oncology 03/22/22 08/14/24 Azra South, OLIVIA [address] [place] [address] PHCM Rn Practitioner 05/09/22 04/08/24 Nico Patel MD [address] [place] [address] [address] [address] Primary Oncologist Hematology 07/13/22 Paco Jean MD, MPH [address] [place] [address] [email or web address] Insurance Assigned Provider 09/09/22 01/13/23 Ro Hardin LCSW [address] [place] [address] [email or web address] Continuous Improvement Specialist 12/01/22 12/11/22 Myranda Lloyd [address] [place] [address] [email or web address] 01/16/23 01/17/23 Stuart Saunders MD 30 [place] [address] Primary Oncologist Medical Oncology 01/22/23 Glenna Granados FITNESS PROFESSIONAL 30 [place] [address] Nurse Practitioner Medical Oncology 03/12/23 08/14/24 Ibis Wilson RN [address] [place] [phone] Primary Infusion Nurse 08/14/23 Luisa Vega [address] [place] [phone] Music Therapist 07/25/24 Moni Argueta RN [address] [place] [address] [email or web address] Nurse Navigator 08/15/24 documented as of this encounter Additional Source Comments The information contained in this document represents components of the legal health record. It is not the complete legal health record.[facility]
--- OUTSIDE RECORDS SUMMARY | 2025-02-26 16:24 | XMS_ITS | Encounter Summary ---
Author Organization [facility] Address [address] [place] [address] [address] [place] [address] Phone Care Team Providers Care Spooler Rubber Strand Name Role Phone Soco Alexis WARP TENSION TESTER Unavailable [phone] Keily Maldonado SEARCH SPECIALIST Unavailable Cassi CarpenterC Unavailable dylan Nico Patel MD Unavailable Stuart Saunders MD Unavailable [phone] Glenna Granados WARP TENSION TESTER Unavailable [phone] Rachana Otto MD Primary Care Provider Ibis Wilson RN Unavailable Luisa Vega Unavailable [phone] Moni Argueta RN Unavailable Pcp, Unknown Primary Care Provider Unavailabl Soco Osullivan WARP TENSION TESTER Primary Care Provider [phone] Encounter Details Date Type Department Care Team (Late st Contact Info) Description 06/12/[address], 8th Floor, [address] [place] [address] Diamond Lopez, RN [address] [place] [address] [email or web address] Social History Tobacco Use Types Packs/Day [...] 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 32 [facility], 9th Floor, [address] [address] Nico Patel MD [address] [address] [email or web address] 03/17/2025 2:00 PM EST Office Visit [facility] 32 [facility], 9th Floor, [address] [place] [address] Krysta Villagomez FNP 32 [facility] [address] [place] [address] 10/19/2025 12:30 PM EDT Appointment [address] [address] Soco Alexis, WARP TENSION TESTER [address] [place] [address] documented as of this encounter Visit Diagnoses [...] documented as of this encounter Care Teams Spooler Rubber Strand Relationship Specialty Start Date End Date Rachana Otto MD [address] [place] [address] [place] [address] [email or web address] PCP - General Family Medicine 05/31/23 10/20/24 Pcp, Unknown PCP - General 11/11/24 12/01/24 Soco Alexis WARP TENSION TESTER [address] [place] [address] PCP - General Nurse Practitioner 12/02/24 Soco Alexis WARP TENSION TESTER 03/02/17 12/01/24 Keily Maldonado CNP [address] [place] [address] Nurse Practitioner Medical Oncology 02/16/22 Cassi Carpenter PA-C [address] [place] [address] Physician Harbor Pilot Medical Oncology 03/22/22 08/14/24 Nico Patel MD [address] [place] [address] [address] [place] [address] [email or web address] Primary Oncologist Hematology 07/13/22 Stuart Saunders MD [address] [place] [address] Primary Oncologist Medical Oncology 01/22/23 Glenna Granados NP [address] [place] [address] Nurse Practitioner Medical Oncology 03/12/23 08/14/24 Ibis Wilson, OLIVIA [address] [place] [address] [phone] Primary Infusion Nurse 08/14/23 Luisa Vega [address] [place] [address] [phone] Music Therapist 07/25/24 Moni Argueta RN [address] [place] [address] Nurse Navigator 08/15/24 documented as of this encounter Additional Source Comments The information contained in this document represents components of the legal health record. It is not the complete legal health record.[facility]
--- OUTSIDE RECORDS SUMMARY | 2025-02-26 16:24 | XMS_ITS | Encounter Summary ---
Author Organization [facility] Address [address] [place] [address] Phone Care Team Providers Care Professional Nursing Assistant Name Role Phone Soco Alexis PROFESSIONAL NURSING ASSISTANT Unavailable [phone] Erica Keily BAILER TENDERS SUPERVISOR Unavailable Cassi CarpenterC Unavailable [email or web address] Azra South RN Unavailable Nico Patel MD Unavailable Stuart Saunders MD Unavailable [phone] Glenna Granados PROFESSIONAL NURSING ASSISTANT Unavailable [phone] Rachana Otto MD Primary Care Provider [phone] Ibis Wilson RN Unavailable Luisa Vega Unavailable [phone] Moni Argueta RN Unavailable [phone] Pcp, Unknown Primary Care Provider Unavailabl Soco Osullivan PROFESSIONAL NURSING ASSISTANT Primary Care Provider [phone] Encounter Details Date Type Department Care Team (Late st Contact Info) Description 02/15/2024 Procedure Pass [facility] [address] 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 file documented as of this encounter Plan of Treatment Upcoming Encounters Date Type Department Care Team (Late st Contact Info) Description 02/17/2025 Procedure Pass [address] [address] 03/17/2025 1:00 PM EST Infusion [facility] 32 [facility], 9th Floor, [address], [place] [address] Nico Patel MD [address] [address] [email or web address] 03/17/2025 2:00 PM EST Office Visit [facility] 32 [facility], 9th Floor, [address], [place] [address] Krysta Villagomez FNP 32 [facility] [address] [place] [address] [email or web address] 10/19/2025 12:30 PM EDT Appointment [address] [address] Soco Alexis NP 230 [place] [address] documented as of this encounter Visit Diagnoses [...] documented as of this encounter Care Teams Professional Nursing Assistant Relationship Specialty Start Date End Date Rachana Otto MD [address] [place] [address] [place] [phone] [email or web address] PCP - General Family Medicine 05/31/23 10/20/24 Pcp, Unknown PCP - General 11/11/24 12/01/24 Soco Alexis PROFESSIONAL NURSING ASSISTANT [address] [place] [address] PCP - General Nurse Practitioner 12/02/24 Soco Alexis PROFESSIONAL NURSING ASSISTANT 03/02/17 12/01/24 Keily Maldonado CNP [address] [place] [address] [email or web address] Nurse Practitioner Medical Oncology 02/16/22 Cassi Carpenter PA-C [address] [place] [address] [email or web address] Physician Furnace Builder Medical Oncology 03/22/22 08/14/24 Azra South RN [address] [place] [address] [email or web address] PHC Van Driver 05/09/22 04/08/24 Nico Patel MD [address] [place] [address] [email or web address] Primary Oncologist Hematology 07/13/22 Stuart Saunders MD [address] [place] [address] [email or web address] Primary Oncologist Medical Oncology 01/22/23 Glenna Granados PROFESSIONAL NURSING ASSISTANT [address] [place] [address] [email or web address] Nurse Practitioner Medical Oncology 03/12/23 08/14/24 Ibis Wilson, OLIVIA [address] [place] [phone] [email or web address] Primary Infusion Nurse 08/14/23 Luisa Vega [address] [place] [phone] Music Therapist 07/25/24 Moni Argueta RN [address] [place] [address] [email or web address] Nurse Navigator 08/15/24 documented as of this encounter Additional Source Comments The information contained in this document represents components of the legal health record. It is not the complete legal health record.[facility]
--- OUTSIDE RECORDS SUMMARY | 2025-02-26 16:24 | XMS_ITS | Encounter Summary ---
Author Organization [facility] Address [address] [place] [address] Phone Care Team Providers Care Manager Corporate Communications Name Role Phone Soco Alexis MATERIALS ANALYST Unavailable [phone] Erica Keily DIRECTOR OF CARDIOPULMONARY SERVICES Unavailable Cassi CarpenterC Unavailable dylan Azra South RN Unavailable Nico Patel MD Unavailable Stuart Saunders MD Unavailable [phone] Glenna Granados MATERIALS ANALYST Unavailable [phone] Rachana Otto MD Primary Care Provider [phone] Ibis Wilson RN Unavailable Luisa Vega Unavailable Moni Argueta RN Unavailable [phone] Pcp, Unknown Primary Care Provider Unavailabl Soco Osullivan MATERIALS ANALYST Primary Care Provider [phone] Encounter Details Date Type Department Care Team (Late st Contact Info) Description 11/28/2023 Procedure Pass [facility] [address] [place] [address] Social History Tobacco Use Types Packs/Day Years [...] 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 file documented as of this encounter Plan of Treatment Upcoming Encounters Date Type Department Care Team (Late st Contact Info) Description 02/17/2025 Procedure Pass [address] [address] 03/17/2025 1:00 PM EST Infusion [facility] 32 [facility], 9th Floor, [address] [address] Nico Patel MD [address] [address] 03/17/2025 2:00 PM EST Office Visit [facility] 32 [facility], 9th Floor, [address], [place] [address] Krysta Villagomez FNP 32 [facility] [address] [place] [address] 10/19/2025 12:30 PM EDT Appointment [address] [address] Soco Alexis NP 230 [place] [address] documented as of this encounter Visit Diagnoses [...] documented as of this encounter Care Teams Manager Corporate Communications Relationship Specialty Start Date End Date Rachana Otto MD [address] [place] [address] [place] [phone] [email or web address] PCP - General Family Medicine 05/31/23 10/20/24 Pcp, Unknown PCP - General 11/11/24 12/01/24 Soco Alexis, MATERIALS ANALYST [address] [place] [address] PCP - General Nurse Practitioner 12/02/24 Soco Alexis NP 03/02/17 12/01/24 Keily Maldonado CNP [address] [place] [address] [email or web address] Nurse Practitioner Medical Oncology 02/16/22 Cassi Carpenter PA-C [address] [place] [address] [email or web address] Physician Supervisor [employer]ges [employer] Buildings Medical Oncology 03/22/22 08/14/24 Azra South RN [address] [place] [address] [email or web address] PHC Ball Points Inspector 05/09/22 04/08/24 Nico Patel MD [address] [place] [phone] [email or web address] Primary Oncologist Hematology 07/13/22 Stuart Saunders MD [address] [place] [address] Primary Oncologist Medical Oncology 01/22/23 Glenna Granados MATERIALS ANALYST [address] [place] [address] Nurse Practitioner Medical Oncology 03/12/23 08/14/24 Ibis Wilson, OLIVIA [address] [place] [phone] [email or web address] Primary Infusion Nurse 08/14/23 Luisa Vega [address] [place] [phone] Music Therapist 07/25/24 Moni Argueta RN [address] [place] [phone] Nurse Navigator 08/15/24 documented as of this encounter Additional Source Comments The information contained in this document represents components of the legal health record. It is not the complete legal health record.[facility]
--- OUTSIDE RECORDS SUMMARY | 2025-02-26 16:24 | XMS_ITS | Clinical Summary ---
Author Organization [employer] Address [address] [place] [address] 7[address] [place] [address] Care Team Providers Care Dining Service Supervisor Name Role Phone JaneneSoco chavez JADE Primary Care Provider [phone] Allergies Active Allergy Reactions Criticality Noted Date Comments Amoxicillin-Pot Clavulanate Rash Medium 04/16/20 20 Azithromycin Anaphylaxis High 09/22/2016 Bee Venom Anaphylaxis High 08/05/2023 Cephalexin Rash Medium 04/16/2020 Clindamycin Anaphylaxis High 05/15/2017 Hornet Venom Anaphylaxis High 09/22/2016 Moxifloxacin Anaphylaxis High 05/15/2017 Medications * This document contains information received from the source organization and may not represent a complete record from that organization. albuterol (2.5 MG/3ML) 0.083% nebulizer solution Take [...] in the evening, and at bedtime. 07/15/19 Active labetalol (Normodyne) 100 MG tablet Take [...] MORNING AND 4 CAPSULES EVERY EVENING 05/26/19 Active valACYclovir (Valtrex) 1 g tablet Take 1 tablet by mouth Once per day. 05/09/19 Active furosemide (Lasix) 20 MG tablet Take [...] by mouth Once per day. 08/06/19 25 Discontinu ed(Therapy completed) mupirocin (Bactroban) 2 % [...] 5:10 PM EDT): Orders: FLU VACCINE TRIVALENT [id number] (Fluarix) 6 mo + Impetigo 02/02/2025 Assessment [...] (10/27/2024 10:00 AM EDT): Pt [facility] care, complicated pmh, currently in care primarly with [facility] oncology as pt is on chronic steroids s/p allograft stem cell. 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 Nico Patel at [facility]. Primary Outpatient Provider: Nico Patel MD (BMT) Transplant Type: TIGRE Flu/Jeannine PBSCT, Day 0= 07/25/2023 Disease Status: Chimerism (12/2023) 100% donor in all cell lines. PET at 1 year (07/2024) w/ CR Assessment & Plan (02/17/2025 1:46 PM EDT): ADHD (attention deficit hyperactivity disorder) 05/23/2022 Depression with anxiety 05/23/2022 Febrile neutropenia ([facility]) 05/23/2022 Peripheral T cell lymphoma o f lymph nodes of multiple sites ([facility]) 01/30/2022 Assessment & Plan (02/17/2025 1:46 PM EDT): HTN (hypertension) 07/02/2020 Mild intermittent asthma without complication Pulmonary nodules 05/28/2020 HUNG (dyspnea on exertion) 05/03/2020 Gastroesophageal reflux disease without esophagi tis 02/06/2019 History of uveitis 02/06/2019 Vitamin D insufficiency 02/06/2019 Cancer ([facility]) Transplant Overview (10/06/2024): autogenic stem cell , 2022, failed, then allogent 07/25/23 Resolved Problems Problem Noted Date Diagnosed Date Resolved Date Septic shock ([facility]) 08/14/202410/06 Elevated blood pressure read ing without diagnosis of hypertension 08/05/2023 10/06/2024 Fever in adult 09/18/2022 10/06/2024 Mucositis 09/08/2022 10/06/2024 Tobacco dependence 02/06/2019 Unexplained weight gain 02/06/2019 06/0 06/2024 Encounters * This document contains information received from the source organization and may not represent a complete record from that organization. Date Type Department Care Team Description 02/23/2025 Travel 02/17/2025 1:00 PM EDT Procedure Visit [address] [address] Soco Alexis NP Cervical cancer screening (Primary Dx); Memory impairment; Menopausal syndrome (hot flashes); 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); T-cell lymphoma (CMS/HCC) (HCC); Breast screening 02/17/2025 Travel 02/16/[address] [address] Soco Alexis NP Chart Prep 02/02/2025 10:30 AM EDT Office Visit [address] [address] Soco Alexis NP Generalized edema (Primary Dx); Encounter for immunization; Impetigo; Total body pain 02/02/2025 Travel 01/30/[address] [address] Jose A Yanez MA chart prep 01/29/2025 Travel 01/28/[address] [address] Soco Alexis NP 12/12/2024 2:00 PM EDT Office Visit [address] [address] Anne Beltrán CNP Lymphedema (Primary Dx); Shortness of breath 12/12/2024 Travel 12/11/[address] [address] Sara Camacho MA CHARTPREP 12/10/[address] [address] Soco Alexis NP Nurse Triage 12/05/[address] [place] [address] Soco Alexis NP 12/01/2024 3:45 PM EDT Office Visit [facility] [address] [place] [address] Soco Alexis NP Type 2 diabetes mellitus with hyperglycemia, without long-term current use of insulin ([facility]) (Primary Dx); Acute pain of right shoulder; Chest pain varying with breathing; Intertrigo; Breast screening; Menopausal syndrome (hot flashes); 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 ([facility]/HCC); Acute respiratory failure with hypoxia ([facility]/HCC) 12/01/2024 Travel 11/30/2024 Travel from Last 3 [...] Description 03/02/2025 3:30 PM EDT Office Visit [facility] [address] [place] [address] Soco Alexis NP [address] [place], [place] [phone] Health Maintenance Due Date Last Done Comments HIV Screening 1980 Diabetes: Foot Exam 1990 Eye Exam 1990 Hepatitis C Screening 1998 HPV Vaccines (1 - Risk 3-dose SCDM series) 12/23/2007 Mammogram 2020 Lipid Panel 07/03/2024 07/03/2023, 02/10/2023, 06/11/2023 Hepatitis B Vaccines (3 of 3 [...] Screening 01/28/2026 01/28/2025 Tobacco Screening 02/17/2026 02/17/2025 Pap Smear 02/18/2028 02/17/2025 Cervical Cancer Screening 02/17/2030 HPV/Cotest 02/17/2030 02/17/2025 DTaP/Tdap/Td Vaccines (5 - Td or [...] Procedure Name Priority Date/Time Associated Diagnosis Comments PAP SMEAR Routine 02/17/2025 Cervical cancer screening HPV DNA, LOW/HIGH RISK Routine 12:00 AM EDT Cervical cancer screening AMB REFERRAL TO PHYSICAL MEDICINE REHAB/PHYSIATRY STAT [...] hyperglycemia, without long-term current use of insulin ([facility]) POCT GLUCOSE Routine 12/01/2024 4:11 PM EDT Type 2 diabetes mellitus with hyperglycemia, without long-term current use of insulin ([facility]) from Last 3 Months Results * HPV High Risk with Reflex to Subtypes (02/17/2025 12:00 AM EDT) HPV High Risk Negative Negative [facility] HPV Genotype 16 Negative Negative [facility] HPV Genotype 18 Negative Negative [facility] Comment:HPV testing performe d at [facility] (CLIA#[id number]), [address] [place] [address].Testing for HPV was performed using the [employer] Ensyn0system. The presence of HPV in the female genital tract isassociated with a number of diseases, including cervicalcarcinoma. The HPV DNA high risk pool tests for HPV 31, 33,35, 39, 45, 51, 52, 56, 58, 59, 66 and 68. The testing forHPV 16 and 18 genotypes has also been performed. A positiveresult indicates detection of nucleic acid sequences fromone or more subtypes, whereas a negative result indicatessuch sequences were not detected. Pap Vial 02/17/2025 02/18/2025 12: 14 PM EDT us Soco Alexis NP LAB BLOOD ORDERABLES Final Resul t [facility] [address], [place] [phone] * Pap Smear (02/17/2025) Swab 02/17/2025 02/18/2025 12: 14 PM EDT Narrative [facility] - 02/23/2025 1:32 PM EDT ----- ------- Name: Otilia Moreno Age/Sex: 44/F : 1980 Unit#: [id number] Attend Dr: Soco Alexis FILTER CLEANER Re02/18/25 Status: DEP REF Location: [facility] Disch: ----- ------- SPEC : [id number] RECD: 02/18/25 STATUS: MASSIEL TRAORE NUM: [id number] JIMMY: 02/17/25- [facility]: Soco Alexis NP ENTERED: 02/18/25 SP TYPE: Pap Smr [facility] DR: ORDERED: Pap Smear Interpretation Satisfactory for evaluation. Negative for intraepithelial lesion or malignancy. Scant cellularity. HPV High Risk: Negative HPV Genotyping 16: Negative HPV Genotyping 18: Negative Clinical Information LMP: Previous PAP test: Other surgery: Other history: Chemical menopause Material Received ThinPrep-Cervical ----- ------- Signed (signature on file) CHAY Bauman (ASCP) 02/23/25 0167 ----- ------- END OF REPORT Soco Alexis FILTER CLEANER LAB CYTOLOGY ORDERABLES Final Re sult [facility] [address], [place] [phone] * Referral to Physiatry (01/06/2025) Soco Alexis FILTER CLEANER OUTPATIENT REFERRAL ORDERABLES F inal Result * (ABNORMAL) CBC auto differential (12/12/2024 2:53 PM EDT) White Blood Count 4.7(L) 4.8 - 10.8 X10*3/uL [facility] Red Blood Count 3.48(L) 4.20 - 5.50 X10*6/uL [facility] Hemoglobin 10.9(L) 12.0 - 16.0 g/dl [facility] Hematocrit 33.5(L) 37.0 - 47.0 % [facility] Mean Corpuscular Volume 96.3 80.0 - 98.0 fL [facility] Mean Corpuscular Hemoglobin 31.3 27.0 - 33.0 pg [facility] Mean Corpuscular HGB Conc 32.5 31.0 - 35.0 g/dl [facility] Red Cell Distribution Width 14.1 11.0 - 16.0 % [facility] Platelet Count 166 160 - 400 X10*3/uL [facility] Mean Platelet Volume 9.8 9.4 - 12.3 fL [facility] Neutrophils Percent Auto 57.8 45 - 73 % [facility] Imm Gran Pct Auto 0.4 0.0 - 0.4 % [facility] Lymphocytes Percent Auto 24.5 20 - 40 % [facility] Monocytes Percent Auto 15.0(H) 2 - 11 % [facility] Eosinophils Percent Auto 2.1 0 - 4 % [facility] Basophils Percent Auto 0.2 0 - 2 % [facility] NRBC Pct Auto 0.0 0.0 - 0.2 /100WBC [facility] Neutrophils Absolute Auto 2.7 2.0 - 8.3 x10*3/uL [facility] Imm Gran Abs Auto 0.02 0.00 - 0.03 X10*3/uL [facility] Lymphocytes Absolute Auto 1.2 1.2 - 4.9 X10*3/uL [facility] Monocytes Absolute Auto 0.7 0.1 - 1.2 X10*3/uL [facility] Eosinophils Absolute Auto 0.1 0.0 - 0.4 X10*3/uL [facility] Basophils Absolute Auto 0.0 0.0 - 0.2 X10*3/uL [facility] NRBC Abs Auto 0.000 0.0 - 0.012 X10*3/uL [facility] Blood Venous blood specimen / Unknown 12/12/2024 2:53 PM EDT 12/12/2024 4:12 PM EDT [facility] LAB BLOOD ORDERABLES Molly l Result [facility] [address] [place] [phone] * B Type Natriuretic Peptide (BNP) (12/12/2024 2:53 PM EDT) B Type Natriuretic Peptide 15 <100 pg/mL [facility] Blood Venous blood specimen / Unknown 12/12/2024 2:53 PM EDT 12/12/2024 4:[address] [facility] AGRICULTURAL SERVICE WORKER LAB BLOOD ORDERABLES Molly l Result Performing Organization Address City/[facility]/ZIP Co de Phone Number [facility] [address] [place] [address] [phone] * (ABNORMAL) Comprehensive Metabolic Panel (12/12/2024 2:53 PM EDT) Sodium 141 135 - 145 mmol/L [facility] Potassium 3.6 3.3 - 5.1 mmol/L [facility] Chloride 105 96 - 108 mmol/L [facility] Carbon Dioxide 28 22 - 29 mmol/L [facility] Anion Gap 12 12 - 20 [facility] Urea Nitrogen (BUN) 11 9 - 16 mg/dL [facility] Creatinine, Serum 1.09 0.5 - 1.4 mg/dL [facility] Estimated Glomerular Filt Rate 55 [facility] Comment:Chronic Kidney Disea se: Estimated GFR < 60 mL/min/1.44s0Ojihri Kidney Disease: Estimated GFR < 15 mL/min/1.73m2 Glucose 99 60 - 115 mg/dL [facility] Calcium 9.9 8.4 - 10.2 mg/dL [facility] Bilirubin, Total 0.3 0.0 - 1.0 mg/dL [facility] Aspartate Amino Transferase 48(H) 5 - 31 U/L [facility] Alanine Aminotransferase 57(H) 0 - 31 U/L [facility] Total Protein 7.8 6.5 - 8.0 g/dL [facility] Albumin Level 4.5 3.5 - 5.0 g/dL [facility] Alkaline Phosphatase 103 39 - 117 U/L [facility] Blood Venous blood specimen / Unknown 12/12/2024 2:53 PM EDT 12/12/2024 4:39 PM EDT [facility] LAB BLOOD ORDERABLES Molly l Result Performing Organization Address [facility]/ZIP Co de Phone Number [facility] [address] [place] [address] [phone] * POCT HGB A1C (12/01/2024 4:11 PM EDT) Hemoglobin A1C 5.7 4.0 - 5.7 % QC Media Lot # [id number] Lot# Expiration Date 62 Blood 12/01/2024 4:11 PM EDT Soco Alexis FILTER CLEANER POINT OF CARE TEST ENTER/EDIT OR DERABLES Final Result * POCT Glucose (12/01/2024 4:11 PM EDT) Glucose Blood, POC 170 60 - 200 mg/dL QC Media Lot # [id number] Lot# Expiration Date 025 Blood Capillary blood specimen / Unknown 12/01/2024 4:11 PM EDT Soco Alexis FILTER CLEANER POINT OF CARE TEST ENTER/EDIT OR DERABLES Final Result from Last 3 Months Insurance [facility] MEDICARE Care Teams Dining Service Supervisor Relationship Specialty Start Date End Date Soco Alexis NP [address] [place] [phone] PCP - General Family Medicine 10/06/24
--- OUTSIDE RECORDS SUMMARY | 2025-02-26 16:24 | XMS_ITS | Encounter Summary ---
Author Organization [facility] Address [address] [place] [phone] Phone Care Team Providers Care Retail Support Manager Name Role Phone Soco Alexis CUTTER OPERATOR BRICK Unavailable [phone] Keily Maldonado TONG SETTER Unavailable Cassi CarpenterC Unavailable dylan Azra South RN Unavailable Nico Patel MD Unavailable Stuart Saunders MD Unavailable [phone] Glenna Granados CUTTER OPERATOR BRICK Unavailable [phone] Rachana Otto MD Primary Care Provider [phone] Ibis Wilson RN Unavailable Luisa Vega Unavailable [phone] Moni Argueta RN Unavailable [phone] Pcp, Unknown Primary Care Provider Unavailabl Soco Osullivan CUTTER OPERATOR BRICK Primary Care Provider [phone] Encounter Details Date Type Department Care Team (Late st Contact Info) Description 01/08/2024 Transcribe Orders [facility] Specimen Processing [address] [place] [address] Rachana Otto MD [address] [place] [address] [email or web address] Social History Tobacco Use Types Packs/Day Years [...] 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 file documented as of this encounter Plan of Treatment Upcoming Encounters Date Type Department Care Team (Late st Contact Info) Description 02/17/2025 Procedure Pass [address] [address] 03/17/2025 1:00 PM EST Infusion [facility] [address] [facility], 9th Floor, [address], [place] [address] Nico Patel MD [address] [place] [address] [email or web address] 03/17/2025 2:00 PM EST Office Visit [facility] [address] [facility], 9th Floor, [address] [place] [address] Krysta Villagomez FNP [address] [facility] [address] [place] [address] 10/19/2025 12:30 PM EDT Appointment [address] [place] [address] Soco Alexis, CUTTER OPERATOR BRICK [address] [place] [address] documented as of this encounter Visit Diagnoses [...] documented as of this encounter Care Teams Retail Support Manager Relationship Specialty Start Date End Date Rachana Otto MD [address] [place] [address] [place] [phone] [email or web address] PCP - General Family Medicine 05/31/23 10/20/24 Pcp, Unknown PCP - General 11/11/24 12/01/24 Soco Alexis CUTTER OPERATOR BRICK [address] [place] [phone] PCP - General Nurse Practitioner 12/02/24 Soco Alexis CUTTER OPERATOR BRICK 03/02/17 12/01/24 Keily Maldonado CNP [address] [place] [address] [email or web address] Nurse Practitioner Medical Oncology 02/16/22 Cassi Carpenter PA-C [address] [place] [address] [email or web address] Physician Mesmerist Medical Oncology 03/22/22 08/14/24 Azra South RN [address] [place] [phone] [email or web address] PHC Bottling Attendant 05/09/22 04/08/24 Nico Patel MD [address] [place] [address] [email or web address] Primary Oncologist Hematology 07/13/22 Stuart Saunders MD [address] [place] [address] Primary Oncologist Medical Oncology 01/22/23 Glenna Granados NP [address] [place] [address] Nurse Practitioner Medical Oncology 03/12/23 08/14/24 Ibis Wilson RN [address] [place] [phone] Primary Infusion Nurse 08/14/23 Luisa Vega [address] [place] [address] Music Therapist 07/25/24 Moni Argueta RN [address] [place] [address] [email or web address] Nurse Navigator 08/15/24 documented as of this encounter Additional Source Comments The information contained in this document represents components of the legal health record. It is not the complete legal health record.[facility]
--- OUTSIDE RECORDS SUMMARY | 2025-02-26 16:24 | XMS_ITS | Encounter Summary ---
Author Organization [facility] Address [address] [place] [address] Phone Care Team Providers Care Benzene Still Utility Operator Name Role Phone Soco Alexis NP Unavailable [phone] Guru Glynn MD Unavailable Keily Maldonado CNP Unavailable Cassi Carpenter PA-C Unavailable [email or web address] Azra South RN Unavailable Nico Patel MD Unavailable Stuart Saunders MD Unavailable [phone] Glenna Granados LOAN DOCUMENTS CLOSER Unavailable Rachana Otto MD Primary Care Provider Rachana Otto MD Primary Care Provider [phone] Ibis Wilson RN Unavailable Luisa Vega Unavailable Moni Argueta RN Unavailable Pcp, Unknown Primary Care Provider Unavailabl e Graef, Soco B LOAN DOCUMENTS CLOSER Primary Care Provider [phone] Encounter Details Date Type Department Care Team (Late st Contact Info) Description 03/22/2023 Procedure Pass [address] [place] [address] Social History Tobacco Use Types Packs/Day Years [...] st Contact Info) Description 02/17/2025 Procedure Pass [facility] [address] [place] [address] 03/17/2025 1:00 PM EST Infusion [facility] [address] [facility], 9th Floor, [address] [place] [address] Nico Patel MD [address] [facility] [address] [place] [address] 03/17/2025 2:00 PM EST Office Visit [facility] [address] [facility], 9th Floor, [address] [place] [address] Krysta Villagomez FNP [address] [facility] [address] [place] [address] [email or web address] 10/19/2025 12:30 PM EDT Appointment [facility] [address] [place] [address] Soco Alexis NP [address] [place] [address] documented as of this encounter Visit Diagnoses [...] documented as of this encounter Care Teams Benzene Still Utility Operator Relationship Specialty Start Date End Date Rachana Otto MD [address] [place] [address] [email or web address] PCP - General Family Medicine 03/14/23 05/30/23 Rachana Otto MD [address] [place] [phone] [email or web address] PCP - General Family Medicine 05/31/23 10/20/24 Pcp, Unknown PCP - General 11/11/24 12/01/24 Soco Alexis, LOAN DOCUMENTS CLOSER [address] [place] [address] PCP - General Nurse Practitioner 12/02/24 Soco Alexis, LOAN DOCUMENTS CLOSER 03/02/17 12/01/24 Guru Glynn MD [address] [place] [address] [address] [place] [address] [email or web address] Primary Oncologist Medical Oncology 01/24/22 05/09/23 Keily Maldonado CNP [address] [place] [address] Nurse Practitioner Medical Oncology 02/16/22 Cassi Carpenter PA-C [address] [place] [address] Physician Dupligraph Operator Medical Oncology 03/22/22 08/14/24 Azra South, OLIVIA [address] [place] [address] PHCM Superintendent System Operation 05/09/22 04/08/24 Nico Patel MD [address] [place] [address] [address], [place] [address] Primary Oncologist Hematology 07/13/22 Stuart Saunders MD [address] [place] [phone] [email or web address] Primary Oncologist Medical Oncology 01/22/23 Glenna Granados NP [address] [place] [phone] [email or web address] Nurse Practitioner Medical Oncology 03/12/23 08/14/24 Ibis Wilson RN [address] [place] [phone] [email or web address] Primary Infusion Nurse 08/14/23 Luisa Vega [address] [place] [phone] Music Therapist 07/25/24 Moni Argueta RN [address] [place] [phone] Nurse Navigator 08/15/24 documented as of this encounter Additional Source Comments The information contained in this document represents components of the legal health record. It is not the complete legal health record.[facility]
--- OUTSIDE RECORDS SUMMARY | 2025-02-26 16:24 | XMS_ITS | Encounter Summary ---
Author Organization [facility] Address [address] [place] [address] Phone Care Team Providers Care Uniform Force Captain Name Role Phone Soco Alexis PELLET MACHINE OPERATOR Unavailable [phone] Paco Jean MD, MPH Unavailable Guru Glynn MD Unavailable Soco Alexis PELLET MACHINE OPERATOR Primary Care Provider Keily Maldonado PLATE COLORER Unavailable Cassi CarpenterC Unavailable dylan Azra South RN Unavailable Nico Patel MD Unavailable [phone] Paco Jean MD, MPH Unavailable Ro Hardin LCSW Unavailable [email or web address] Myranda Lloyd Unavailable [email or web address] Stuart Saunders MD Unavailable [phone] Glenna Granados PELLET MACHINE OPERATOR Unavailable [phone] Rachana Otto MD Primary Care Provider Rachana Otto MD Primary Care Provider [phone] Ibis Wilson RN Unavailable Luisa Vega Unavailable [phone] Moni Argueta RN Unavailable [phone] Pcp, Unknown Primary Care Provider UnavailSoco Hodge NP Primary Care Provider [phone] Encounter Details Date Type Department Care Team (Late Contact Info) Description 07/07/2022 Procedure Pass [facility], Ct Scan [address] [address] Social History Tobacco Use Types Packs/Day Years [...] 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 file documented as of this encounter Plan of Treatment Upcoming Encounters Date Type Department Care Team (Late st Contact Info) Description 02/17/2025 Procedure Pass [address] [address] 03/17/2025 1:00 PM EST Infusion [facility] [address], [address] [place] [address] Nico Patel MD [address] [place] [address] [email or web address] 03/17/2025 2:00 PM EST Office Visit [facility] [address], [address], [address] [place] [address] Krysta Villagomez FNP 32 [facility] [address] [place] [address] [email or web address] 10/19/2025 12:30 PM EDT Appointment [facility] 30 [place] [address] Soco Alexis, JADE [address] [place] [address] documented as of this encounter Visit Diagnoses [...] documented as of this encounter Care Teams Uniform Force Captain Relationship Specialty Start Date End Date Soco Alexis, PELLET MACHINE OPERATOR PCP - General Family Medicine 01/26/22 03/13/23 Rachana Otto MD 30 [place] [address] [email or web address] PCP - General Family Medicine 03/14/23 05/30/23 Rachana Otto MD [address] [place] [address] [place] [address] [email or web address] PCP - General Family Medicine 05/31/23 10/20/24 Pcp, Unknown PCP - General 11/11/24 12/01/24 Soco Alexis, PELLET MACHINE OPERATOR [address] [place] [address] PCP - General Nurse Practitioner 12/02/24 Soco Alexis, PELLET MACHINE OPERATOR 03/02/17 12/01/24 Paco Jean MD, MPH [address] [place] [address] [email or web address] Insurance Assigned Provider 03/12/22 07/15/22 Guru Glynn MD [address] [place] [address] [address] [place] [address] [email or web address] Primary Oncologist Medical Oncology 01/24/22 05/09/23 Keily Maldonado CNP [address] [place] [address] [email or web address] Nurse Practitioner Medical Oncology 02/16/22 Cassi Carpenter PA-C [address] [place] [address] [email or web address] Physician Biological Technical Officer Medical Oncology 03/22/22 08/14/24 Azra South, OLIVIA [address] [place] [address] [email or web address] PHCM Network Solutions Architect 05/09/22 04/08/24 Nico Patel MD [address] [place] [address] [address], [place] [address] [email or web address] Primary Oncologist Hematology 07/13/22 Paco Jean MD, MPH [address] [place] [address] [email or web address] Insurance Assigned Provider 09/09/22 01/13/23 Ro Hardin LCSW [address] [place] [address] [email or web address] [employer] 12/01/22 12/11/22 Myranda Lloyd [address] [place] [address] [email or web address] Respiratory Therapist 01/16/23 01/17/23 Stuart Saunders MD [address] [place] [phone] [email or web address] Primary Oncologist Medical Oncology 01/22/23 Glenna Granados PELLET MACHINE OPERATOR [address] [place] [address] [email or web address] Nurse Practitioner Medical Oncology 03/12/23 08/14/24 Ibis Wilson, OLIVIA [address] [place] [phone] Primary Infusion Nurse 08/14/23 Luisa Vega [address] [place] [address] Music Therapist 07/25/24 Moni Argueta RN [address] [place] [address] [email or web address] Nurse Navigator 08/15/24 documented as of this encounter Additional Source Comments The information contained in this document represents components of the legal health record. It is not the complete legal health record.[facility]
--- OUTSIDE RECORDS SUMMARY | 2025-02-26 16:24 | XMS_ITS | Encounter Summary ---
Author Organization [facility] Address [address] [place] [address] Phone Care Team Providers Care Shake Loader Name Role Phone Soco Alexis TRICHOLOGIST Primary Care Provider [phone] Soco Alexis TRICHOLOGIST Unavailable Paolo Collazo MD Unavailable [phone] Rachana Otto MD Primary Care Provider [phone] Paco Jean MD, MPH Unavailable + [phone] Guru Glynn MD Unavailable [phone] Soco Alexis TRICHOLOGIST Primary Care Provider [phone] Keily Maldonado SCIENCE CENTER DISPLAY BUILDER Unavailable Cassi Carpenter-C Unavailable pnugebelén Azra South RN Unavailable Nico Patel MD Unavailable Paco Jean MD, MPH Unavailable [phone] Ro HardinW Unavailable [email or web address] Myranda Lloyd Unavailable [email or web address] Stuart Saunders MD Unavailable [phone] Glenna Granados TRICHOLOGIST Unavailable [phone] Rachana Otto MD Primary Care Provider [phone] Rachana Otto MD Primary Care Provider [phone] Ibis Wilson RN Unavailable Luisa Vega Unavailable [phone] Moni Argueta RN Unavailable [phone] Pcp, Unknown Primary Care Provider UnavailSoco Hodge TRICHOLOGIST Primary Care Provider [phone] Encounter Details Date Type Department Care Team (Late st Contact Info) Description 05/22/2018 Ancillary Orders Virtual Department [address] [place] [address] Man Michelle MD [address] [place] [address], [address] [place] [address] [email or web address] Sarcoidosis Social History Tobacco Use Types Packs/Day [...] Contact Info) Description 02/17/2025 Procedure Pass [facility] 30 [place] [address] 03/17/2025 1:00 PM EST Infusion [facility] 32 [facility], 9th Floor, [address] [place], [place] [phone] Nico Patel MD 55 [facility] [address] [place] [address] 03/17/2025 2:00 PM EST Office Visit [facility] 32 [facility], 9th Floor, [address] [place] [address] Krysta Villagomez FNP 32 [facility] [address] [place] [address] [email or web address] 10/19/2025 12:30 PM EDT Appointment [facility] 30 [place] [address] Soco Alexis NP [address] [place] [address] documented as of this encounter Results * [...] radiographic evidence of lymphadenopathy. Procedure Note Chan Stark MD - 06/07/2018 HISTORY: Cough, sarcoidosis. COMPARISON: [...] documented as of this encounter Care Teams Shake Loader Relationship Specialty Start Date End Date Soco Alexis NP PCP - General Family Medicine 03/02/17 02/24/20 Rachana Otto MD 70 [place] [address] [email or web address] PCP - General Family Medicine 02/25/20 01/25/22 Soco Alexis NP PCP - General Family Medicine 01/26/22 03/13/23 Rachana Otto MD [address] [place] [address] [email or web address] PCP - General Family Medicine 03/14/23 05/30/23 Rachana Otto MD [address] [place] [phone] [email or web address] PCP - General Family Medicine 05/31/23 10/20/24 Pcp, Unknown PCP - General 11/11/24 12/01/24 Soco Alexis TRICHOLOGIST [address] [place] [address] PCP - General Nurse Practitioner 12/02/24 Soco Alexis TRICHOLOGIST 03/02/17 12/01/24 Paolo Collazo MD [address] [place] [address] [phone] [email or web address] Insurance Assigned Provider 06/06/19 08/13/19 Paco Jean MD, MPH [address] [place] [address] [email or web address] Insurance Assigned Provider 03/12/22 07/15/22 Guru Glynn MD [address] [place] [address] [address] [place] [address] [email or web address] Primary Oncologist Medical Oncology 01/24/22 05/09/23 Keily Maldonado CNP [address] [place] [address] [email or web address] [email or web address] Nurse Practitioner Medical Oncology 02/16/22 Cassi Carpenter PA-C [address] [place] [address] [email or web address] Physician Senior Oracle Adf Developer Medical Oncology 03/22/22 08/14/24 Azra South, OLIVIA [address] [place] [address] [email or web address] PHCM Environmental Air Specialist 05/09/22 04/08/24 Nico Patel MD [address] [place] [address] [email or web address] Primary Oncologist Hematology 07/13/22 Paco Jean MD, MPH [address] [place] [address] [email or web address] Insurance Assigned Provider 09/09/22 01/13/23 Ro Hardin LCSW 10 [place], [place] PHCM Heater Operator 12/01/22 12/11/22 Myranda Lloyd [address] [place], [place] [email or web address] PHC Community Bend Up 01/16/23 01/17/23 Stuart Saunders MD [address] [place] [address] Primary Oncologist Medical Oncology 01/22/23 Glenna Granados NP [address] [place] [address] Nurse Practitioner Medical Oncology 03/12/23 08/14/24 Ibis Wilson RN [address] [place] [phone] Primary Infusion Nurse 08/14/23 Luisa Vega [address] [place] [phone] Music Therapist 07/25/24 Moni Argueta RN [address] [place] [phone] [email or web address] Nurse Navigator 08/15/24 documented as of this encounter Additional Source Comments The information contained in this document represents components of the legal health record. It is not the complete legal health record.[facility]
--- OUTSIDE RECORDS SUMMARY | 2025-02-26 16:24 | XMS_ITS | Encounter Summary ---
Author Organization [facility] Address [address] [place] [address] Phone Care Team Providers Care Electric Engine Mechanic Name Role Phone Soco Alexis SKIVER COUNTER Primary Care Provider [phone] Soco Alexis SKIVER COUNTER Unavailable [phone] Paolo Collazo MD Unavailable [phone] Rachana Otto MD Primary Care Provider [phone] Paco Jean MD, MPH Unavailable + [phone] Guru Glynn MD Unavailable Soco Alexis SKIVER COUNTER Primary Care Provider +[phone] Keily Maldonado WASTEWATER SUPERVISOR Unavailable Cassi Carpenter-C Unavailable pnugebelén Azra South RN Unavailable Nico Patel MD Unavailable Paco Jean MD, MPH Unavailable + [phone] Ro HardinW Unavailable [email or web address] Myranda Lloyd Unavailable [email or web address] Stuart Saunders MD Unavailable [phone] Glenna Granados SKIVER COUNTER Unavailable [phone] Rachana Otto MD Primary Care Provider [phone] Rachana Otto MD Primary Care Provider Ibis Wilson RN Unavailable Luisa Vega Unavailable [phone] Moni Argueta RN Unavailable [phone] Pcp, Unknown Primary Care Provider UnavailSoco Hodge SKIVER COUNTER Primary Care Provider [phone] Encounter Details Date Type Department Care Team (Late st Contact Info) Description 03/03/2017 Transcribe Orders Virtual Department 30 [place] [address] Andrea Jackson MD, [place] 10 [facility] 2nd [place] [address] [email or web address] Social History Tobacco Use Types Packs/Day Years [...] Info) Description 02/17/2025 Procedure Pass [facility] 30 [place] [address] 03/17/2025 1:00 PM EST Infusion [facility] 32 [facility], 9th Floor, [address] [place] [address] Nico Patel MD 55 [facility] [address] [place] [address] 03/17/2025 2:00 PM EST Office Visit [facility] 32 [facility], 9th Floor, [address] [place] [address] Krysta Villagomez FNP 32 [facility] [address] 9 [place] [address] [email or web address] 10/19/2025 12:30 PM EDT Appointment [facility] 30 [place] [address] Soco Alexis, JADE [address] [place] [address] documented as of this encounter Visit Diagnoses [...] EST CoV-Presumed Comment:Per Note Documentation 07/06/2022 07/13/2022 3 6:57 PM EDT CoV-Risk Comment:Per note documentation 09/12/2022 09/12/2022 3 10:41 PM EDT CoV-Risk Comment:Neg covid 09/18/2022 09/18/2022 09/19/2022 7:06 AM E DT C. diff 12/25/2022 12/25/2022 01/24/2023 1:21 AM EDT C. diff 03/13/2023 03/13/2023 04/12/2023 1:26 AM EST C. diff 05/24/2023 05/24/2023 06/23/2023 1:2 1 AM EST CoV-Risk Comment:2 Neg covid 06/04/2023 [...] documented as of this encounter Care Teams Electric Engine Mechanic Relationship Specialty Start Date End Date Soco Alexis SKIVER COUNTER PCP - General Family Medicine 03/02/17 02/24/20 Rachana Otto MD 70 [place] [address] [email or web address] PCP - General Family Medicine 02/25/20 01/25/22 Soco Alexis SKIVER COUNTER PCP - General Family Medicine 01/26/22 03/13/23 Rachana Otto MD 30 [place] [address] PCP - General Family Medicine 03/14/23 05/30/23 Rachana Otto MD [address] [place] [address] [place] [address] [email or web address] PCP - General Family Medicine 05/31/23 10/20/24 Pcp, Unknown PCP - General 11/11/24 12/01/24 Soco Alexis, SKIVER COUNTER [address] [place] [address] PCP - General Nurse Practitioner 12/02/24 Soco Alexis SKIVER COUNTER 03/02/17 12/01/24 Paolo Collazo MD [address] [place] [address] [email or web address] Insurance Assigned Provider 06/06/19 08/13/19 Paco Jean MD, MPH [address] [place] [address] Insurance Assigned Provider 03/12/22 07/15/22 Guru Glynn MD [address] [place] [address] [address] [place] [address] [email or web address] Primary Oncologist Medical Oncology 01/24/22 05/09/23 Keily Maldonado CNP [address] [place] [address] [email or web address] Nurse Practitioner Medical Oncology 02/16/22 Cassi Carpenter PA-C [address] [place] [address] [email or web address] Physician Biologist Medical Oncology 03/22/22 08/14/24 Azra South, OLIVIA [address] [place] [address] [email or web address] PHCM Fuse Spooler 05/09/22 04/08/24 Nico Patel MD 55 [facility] [address] [place] [address] [email or web address] Primary Oncologist Hematology 07/13/22 Paco Jean MD, MPH 70 [place] [address] [email or web address] Insurance Assigned Provider 09/09/22 01/13/23 Ro Hardin LCSW 10 [place], [place] [email or web address] Chief Deputy Court Clerk 12/01/22 12/11/22 Myranda Lloyd [address] [place] [address] [email or web address] Insurance Advisor 01/16/23 01/17/23 Stuart Saunders MD 30 [place] [address] [email or web address] Primary Oncologist Medical Oncology 01/22/23 Glenna Granados, SKIVER COUNTER 30 [place] [address] [email or web address] Nurse Practitioner Medical Oncology 03/12/23 08/14/24 Ibis Wilson, OLIVIA [address] [place] [phone] Primary Infusion Nurse 08/14/23 Luisa Vega 100 [place] [phone] Music Therapist 07/25/24 Moni Argueta, RN 30 [place] [address] [email or web address] Nurse Navigator 08/15/24 documented as of this encounter Additional Source Comments The information contained in this document represents components of the legal health record. It is not the complete legal health record.[facility]
--- OUTSIDE RECORDS SUMMARY | 2025-02-26 16:24 | XMS_ITS | Encounter Summary ---
Author Organization [facility] Address [address] [place] [address] Phone Care Team Providers Care Corporate Banking Officer Name Role Phone Soco Alexis BOARD OF DIRECTORS Unavailable [phone] Paco Jean MD, MPH Unavailable Guru Glynn MD Unavailable Soco Alexis BOARD OF DIRECTORS Primary Care Provider Keily Maldonado MONITOR WORKER Unavailable Cassi CarpenterC Unavailable dylan Azra South RN Unavailable Nico Patel MD Unavailable Paco Jean MD, MPH Unavailable Ro Hardin LCSW Unavailable [email or web address] Myarnda Lloyd Unavailable [email or web address] Stuart Saunders MD Unavailable [phone] Glenna Granados BOARD OF DIRECTORS Unavailable [phone] Rachana Otto MD Primary Care Provider Rachana Otto MD Primary Care Provider [phone] Ibis Wilson RN Unavailable Gary Luisasanya Mcclendon Unavailable [phone] Moni Argueta RN Unavailable [phone] Pcp, Unknown Primary Care Provider Soco Uriarte NP Primary Care Provider [phone] Reason for Referral * Outpatient Procedure - Closed Specialty Diagnoses / Procedures Referred By Mike quesada Referred To Contact Diagnoses Encounter for other preprocedural examination Procedures Adult Echo TTE Nico Patel MD Phone: tel: fax: [email or web address] Referral ID Status Reason Start Date Expiration Date Visits Re quested Visits Authorized [id number] Closed 06/19/2022 06/19/2023 1 1 Encounter Details Date Type Department Care Team (Late st Contact Info) Description 06/19/2022 Documentation [facility] [address] [facility], 9th Floor, [address] [place] [address] Nico Patel MD 55 [facility] [address] [place] [address] [email or web address] Social History Tobacco Use Types Packs/Day Years [...] st Contact Info) Description 02/17/2025 Procedure Pass [address] [address] 03/17/2025 1:00 PM EST Infusion [facility] [address] [facility], 9th Floor, [address] [place] [address] Nico Patel MD 55 [facility] [address] [place] [address] [email or web address] 03/17/2025 2:00 PM EST Office Visit [facility] [address] [facility], 9th Floor, [address] [place] [address] Krysta Villagomez FNP 32 [facility] [address] [place] [address] [email or web address] 10/19/2025 12:30 PM EDT Appointment [address] [address] Soco Alexis, BOARD OF DIRECTORS [address] [place] [address] Pending Results Name Type Priority Associated Diagnoses Date /Time Miscellaneous lab test 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 2:50 PM EDT documented as of this encounter Results * ECG 12-LEAD (08/15/2022 4:34 PM EDT) Systolic Blood Pressure [facility] Diastolic Blood Pressure [facility] Ventricular Rate EKG/MIN 88 BPM [facility] Atrial Rate 88 BPM [facility] TX Interval 128 ms [facility] QRS Duration 80 ms [facility] QT Interval 392 ms [facility] QTC Interval 474 ms [facility] P [place] 9 degrees [facility] R Wave [place] 25 degrees [facility] T Wave [place] 12 degrees [facility] 08/15/2022 4:34 PM EDT 08/29/2022 9:18 PM EDT Narrative [facility] - 08/29/2022 9:18 PM EDT LOC: [id number] DX: PRE-OP EXAM REF: NICO PATEL NORMAL SINUS RHYTHM MINOR NONSPECIFIC ST SEGMENT AND T WAVE ABNORMALITIES NO PREVIOUS ECGS AVAILABLE us Nico Patel MD ECG ORDERABLES Final Result [facility] * T spot TB test (08/15/2022 2:50 PM EDT) T-SPOT.TB Negative Negative [facility] Comment: (NOTE) A negative test result does [...] Spot Count Corrected For Neg Control 0 [facility] Panel B Spot Count Corrected For Neg Control 1 [facility] Negative Control Passed [facility] Positive Control Passed [facility] Comment: (NOTE) For additional information, please refer to http://education.Caringo/faq/DBM748 (This link is being provided for informational/ educational purposes only.) 08/15/2022 2:50 PM EDT 08/15/2022 4:34 PM EDT us Nico Patel MD LAB BLOOD ORDERABLES F inal Result [facility] [address] [place] * (ABNORMAL) LDH (08/15/2022 2:50 PM EDT) LDH 215(H) 110 - 210 U/L [facility] 08/15/2022 2:50 PM EDT 08/15/2022 4:33 PM EDT us Nico Patel MD LAB BLOOD ORDERABLES F inal Result Performing Organization Address City/[facility]/ZIP Co de Phone Number [address] [address] * Uric acid (08/15/2022 2:50 PM EDT) URIC ACID 4.4 2.3 - 6.6 mg/dL [facility] 08/15/2022 2:50 PM EDT 08/15/2022 4:33 PM EDT Nico Patel MD LAB BLOOD ORDERABLES F inal Result Performing Organization Address City/[facility]/ZIP Co de Phone Number [address] [address] * Magnesium (08/15/2022 2:50 PM EDT) MAGNESIUM 1.9 1.7 - 2.4 mg/dL [facility] 08/15/2022 2:50 PM EDT 08/15/2022 4:33 PM EDT Nico Patel MD LAB BLOOD ORDERABLES F inal Result [address] [address] * (ABNORMAL) Renal panel (08/15/2022 2:50 PM EDT) SODIUM 137 135 - 145 mmol/L [facility] POTASSIUM 4.1 3.4 - 5.0 mmol/L [facility] CHLORIDE 101 98 - 108 mmol/L [facility] CO2 25 23 - 32 mmol/L [facility] BUN 14 8 - 25 mg/dL [facility] CREATININE 1.01 0.60 - 1.50 mg/dL [facility] GLUCOSE 103 70 - 110 mg/dL [facility] CALCIUM 9.5 8.5 - 10.5 mg/dL [facility] PHOSPHORUS 4.6(H) 2.6 - 4.5 mg/dL [facility] ALBUMIN 4.6 3.3 - 5.0 g/dL [facility] EGFR 72 >59 mL/min/1. 73m2 [facility] Comment:Estimated glomerular filtration rate calculated using the CKD-EPI refit equation. ANION GAP 11 3 - 17 mmol/L [facility] 08/15/2022 2:50 PM EDT 08/15/2022 4:33 PM EDT Nico Patel MD LAB BLOOD ORDERABLES F inal Result Performing Organization Address City/State/[facility] Co de Phone Number [address] [address] * Urinalysis (08/15/2022 2:50 PM EDT) COLOR Yellow Yellow [facility] CLARITY Clear Clear [facility] GLUCOSE Negative Negative [facility] BILI Negative Negative [facility] KETONES Negative Negative [facility] SPECIFIC GRAVITY 1.025 1.001 - 1.035 [facility] BLOOD Negative Negative [facility] PH 6.0 5.0 - 9.0 [facility] Protein-UA Negative Negative [facility] UROBILINOGEN Negative Negative [facility] NITRITE Negative Negative [facility] Leukocyte esterase, ur Negative Negative [facility] Urine 08/15/2022 2:50 PM EDT 08/15/2022 4:35 PM EDT Nico Patel MD URINE ORDERABLES Final Result Performing Organization Address [facility]/ZIP Co de Phone Number [address] [address] * PT-INR (08/15/2022 2:50 PM EDT) PT 12.7 11.5 - 14.5 sec [facility] INR 1.0 0.9 - 1.1 [facility] 08/15/2022 2:50 PM EDT 08/15/2022 4:34 PM EDT Result [facility] Nico Patel MD LAB BLOOD ORDERABLES F inal Result Performing Organization Address [facility] Co de Phone Number [address] [address] * PTT (08/15/2022 2:50 PM EDT) Pathologist [facility] APTT 32.6 22.0 - 36.6 sec [facility] Comment:Check MAR for the ta rget range that is ordered for your patient. 08/15/2022 2:50 PM EDT 08/15/2022 4:34 PM EDT Nico Patel MD LAB BLOOD ORDERABLES F inal Result Performing Organization Address [facility] Co de Phone Number [address] [address] * (ABNORMAL) CBC and differential (08/15/2022 2:50 PM EDT) WBC 6.87 4.5 - 11.0 K/uL [facility] RBC 3.84(L) 4.00 - 5.20 M/uL [facility] HGB 11.7(L) 12.0 - 16.0 g/dL [facility] HCT 35.8(L) 36.0 - 46.0 % [facility] PLT 131(L) 150 - 400 K/uL [facility] MCV 93.2 80.0 - 100.0 fL [facility] MCH 30.5 26.0 - 34.0 pg [facility] MCHC 32.7 31.0 - 37.0 g/dL [facility] RDW 13.8 11.5 - 14.5 % [facility] MPV 11.1 8.4 - 12.0 fl [facility] NRBC 0.00 0 - 0.20 /100 WBCs [facility] ABSOLUTE NRBC 0.00 0 - 0.01 K/uL [facility] DIFF METHOD Auto [place] NEUTS 61.5 40 - 70 % [facility] LYMPHS 23.7 22 - 44 % [facility] MONOS 6.8 4 - 11 % [facility] EOS 6.1 0 - 8 % [facility] BASOS 0.4 0 - 3 % [facility] % IMMATURE GRANS 1.5(H) 0.0 - 0.9 % [facility] Comment:Immature granulocyte s = metamyelos + myelos + promyelos ABSOLUTE NEUTS 4.22 1.8 - 7.7 K/uL [facility] ABSOLUTE LYMPHS 1.63 1.0 - 4.8 K/uL [facility] ABSOLUTE MONOS 0.47 0.2 - 1.2 K/uL [facility] ABSOLUTE EOS 0.42 0.0 - 0.9 K/uL [facility] ABSOLUTE BASOS 0.03 0.0 - 0.3 K/uL [facility] ABS IMMATURE GRANS 0.10 0.00 - 0.10 K/uL [facility] Blood 08/15/2022 2:50 PM EDT 08/15/2022 4:34 PM EDT us Nico Patel MD LAB BLOOD ORDERABLES F inal Result [address] [address] * Type and Screen (ABO,Rh,Antibody Screen) (08/15/2022 2:50 PM EDT) Expiration Date of Sample 08/18/2022 11:59 PM [facility] Antibody Screen Negative 08/15/2022 8:59 PM EDT [facility] Resulting Agency [facility] ABO O 08/15/2022 8:56 PM EDT [facility] Rh Positive 08/15/2022 8:56 PM EDT [facility] 08/15/2022 2:50 PM EDT 08/15/2022 8:08 PM EDT us Nico Patel MD BLOOD BANK TEST ORDERA BLES Final Result [facility] [address] [facility] [place] [address] * XR CHEST PA AND LATERAL 2 [...] are unchanged and probably representgranulomas us Nico Patel MD IMG XR CHEST Final Result * [...] documented as of this encounter Care Teams Corporate Banking Officer Relationship Specialty Start Date End Date Soco Alexis NP PCP - General Family Medicine 01/26/22 03/13/23 Rachana Otto MD [address] [place] [address] [email or web address] PCP - General Family Medicine 03/14/23 05/30/23 Rachana Otto MD [address] [place] [phone] [email or web address] PCP - General Family Medicine 05/31/23 10/20/24 Pcp, Unknown PCP - General 11/11/24 12/01/24 Soco Alexis BOARD OF DIRECTORS [address] [place] [address] PCP - General Nurse Practitioner 12/02/24 Soco Alexis BOARD OF DIRECTORS 03/02/17 12/01/24 Paco Jean MD, MPH [address] [place], [place] [id number] [email or web address] Insurance Assigned Provider 03/12/22 07/15/22 Guru Glynn MD [address] [place] [address] [address] [place] [address] [email or web address] Primary Oncologist Medical Oncology 01/24/22 05/09/23 Keily Maldonado CNP [address] [place] [address] [email or web address] Nurse Practitioner Medical Oncology 02/16/22 Cassi Carpenter PA-C [address] [place] [address] [email or web address] Physician Applications Systems Analyst Medical Oncology 03/22/22 08/14/24 Azra South RN [address] [place] [address] [email or web address] PHCM Skin Drier 05/09/22 04/08/24 Nico Patel MD [address] [place] [address] [email or web address] Primary Oncologist Hematology 07/13/22 Paco Jean MD, MPH [address] [place] [address] [email or web address] Insurance Assigned Provider 09/09/22 01/13/23 Ro Hardin LCSW [address] [place] [address] [email or web address] PHCM Executive Administrative Assistant 12/01/22 12/11/22 Myranda Lloyd [address] [place] [address] [email or web address] PHCM Community Supervisor Edging 01/16/23 01/17/23 Stuart Saunders MD [address] [place] [address] [email or web address] Primary Oncologist Medical Oncology 01/22/23 Glenna Granados NP [address] [place] [address] [email or web address] Nurse Practitioner Medical Oncology 03/12/23 08/14/24 Ibis Wilson RN [address] [place] [phone] [email or web address] Primary Infusion Nurse 08/14/23 Luisa Vega [address] [place] [phone] Music Therapist 07/25/24 Moni Argueta RN [address] [place] [address] [email or web address] Nurse Navigator 08/15/24 documented as of this encounter Additional Source Comments The information contained in this document represents components of the legal health record. It is not the complete legal health record.[facility]
--- OUTSIDE RECORDS SUMMARY | 2025-02-26 16:24 | XMS_ITS | Encounter Summary ---
Author Organization [facility] Address [address] [place] [address] Phone Care Team Providers Care Grommet Man Name Role Phone Soco Alexis PINKED EDGE SEWING MACHINE OPERATOR Unavailable [phone] Keily Maldonado INSTALLER MOLDING AND TRIM Unavailable Cassi CarpenterC Unavailable dylan Azra South RN Unavailable Nico Patel MD Unavailable Stuart Saunders MD Unavailable [phone] Glenna Granados PINKED EDGE SEWING MACHINE OPERATOR Unavailable [phone] Rachana Otto MD Primary Care Provider Ibis Wilson RN Unavailable Luisa Vega Unavailable [phone] Moni Argueta RN Unavailable Pcp, Unknown Primary Care Provider Unavailabl Soco Osullivan PINKED EDGE SEWING MACHINE OPERATOR Primary Care Provider [phone] Encounter Details Date Type Department Care Team (Late st Contact Info) Description 06/10/2023 Procedure Pass [facility], [place] [address] [facility], 6th [place] [address] Social History Tobacco Use Types Packs/Day Years [...] 06/10/2023 6:00 PM Wendy Baker RN * [place] Suicide Severity Rating Scale (Screener/Recent Self-Report) Question Answer Date of Assessment Author 1. Wish to be (Past 1 Month) No 06/10/2023 6:00 PM Enriqueta Baker RN 2. Non-Specific Active Suicidal Thoughts (Past 1 Month) No 06/10/2023 6:00 PM Enriqueta Baker RN 6. Suicidal Behavior (Lifetime) Yes 06/10/2023 6:00 PM Enriqueta Baker RN 6. Suicidal Behavior (3 Months) No 06/10/2023 6:00 PM EST Enriqueta Canales RN documented as of this encounter Plan of Treatment Upcoming Encounters Date Type Department Care Team (Late st Contact Info) Description 02/17/2025 Procedure Pass [address] [address] 03/17/2025 1:00 PM EST Infusion [facility] [address] [facility], 9th Floor, [address] [place] [address] Nico Patel MD [address] [facility] [address] [place] [address] [email or web address] 03/17/2025 2:00 PM EST Office Visit [facility] [address] [facility], 9th Floor, [address] [place] [address] Krysta Villagomez FNP 32 [facility] [address] [place] [address] [email or web address] 10/19/2025 12:30 PM EDT Appointment [address] [address] Soco Alexis NP [address] [place] [address] documented as of this encounter Visit Diagnoses [...] documented as of this encounter Care Teams Grommet Man Relationship Specialty Start Date End Date Rachana Otto MD [address] [place] [address] [place] [phone] [email or web address] PCP - General Family Medicine 05/31/23 10/20/24 Pcp, Unknown PCP - General 11/11/24 12/01/24 Soco Alexis, PINKED EDGE SEWING MACHINE OPERATOR [address] [place] [address] PCP - General Nurse Practitioner 12/02/24 Soco Alexis, PINKED EDGE SEWING MACHINE OPERATOR 03/02/17 12/01/24 Keily Maldonado CNP [address] [place] [address] Nurse Practitioner Medical Oncology 02/16/22 Cassi Carpenter PA-C [address] [place] [address] Physician Environmental Scientist Medical Oncology 03/22/22 08/14/24 Azra South RN [address] [place] [address] PHCM Band Edger 05/09/22 04/08/24 Nico Patel MD [address] [place] [address] Primary Oncologist Hematology 07/13/22 Stuart Saunders MD [address] [place] [address] Primary Oncologist Medical Oncology 01/22/23 Glenna Granados, PINKED EDGE SEWING MACHINE OPERATOR [address] [place] [address] [email or web address] Nurse Practitioner Medical Oncology 03/12/23 08/14/24 Ibis Wilson RN [address] [place] [phone] Primary Infusion Nurse 08/14/23 Luisa Vega [address] [place] [phone] Music Therapist 07/25/24 Moni Argueta RN 30 [place] [address] [email or web address] Nurse Navigator 08/15/24 documented as of this encounter Additional Source Comments The information contained in this document represents components of the legal health record. It is not the complete legal health record.[facility]
--- OUTSIDE RECORDS SUMMARY | 2025-02-26 16:24 | XMS_ITS | Encounter Summary ---
Author Organization [facility] Address [address] [place] [address] Phone Care Team Providers Care Nursing Educator Name Role Phone Soco Alexis SAMPLE EXAMINER Unavailable [phone] Keily Maldonado BARN OPERATOR Unavailable Cassi CarpenterC Unavailable dylan Azra South RN Unavailable Nico Patel MD Unavailable Stuart Saunders MD Unavailable [phone] Glenna Granados SAMPLE EXAMINER Unavailable [phone] Rachana Otto MD Primary Care Provider Rachana Otto MD Primary Care Provider Ibis Wilson RN Unavailable Luisa Vega Unavailable [phone] Moni Argueta RN Unavailable Pcp, Unknown Primary Care Provider Unavailabl Soco Osullivan SAMPLE EXAMINER Primary Care Provider [phone] Reason for Referral * Outpatient Procedure - Closed Specialty Diagnoses / Procedures Referred By Mike quesada Referred To Contact Radiology Diagnoses Elevated liver enzymes Gastroesophageal reflux disease without esophagitis Procedures US Abdomen Limited Ibis Koch PA-C Phone: tel: fax: [email or web address] Referral ID Status Reason Start Date Expiration Date Visits Re quested Visits Authorized [id number] Closed 05/25/2023 1 1 Encounter Details Date Type Department Care Team (Latest Contact Info) Description 05/25/2023 Transcribe Orders Virtual Department [address] [place] [address] Ibis Koch PA-C [address], [address] [place] [address] [email or web address] Elevated liver enzymes (Primary Dx); Gastroesophageal reflux [...] st Contact Info) Description 02/17/2025 Procedure Pass [address] [address] 03/17/2025 1:00 PM EST Infusion [facility] 32 [facility], 9th Floor, [address] [place] [address] Nico Patel MD [address] [address] [email or web address] 03/17/2025 2:00 PM EST Office Visit [facility] 32 [facility], 9th Floor, [address] [place] [address] Krysta Villagomez, GLORY [address] [facility] [address] [place] [address] [email or web address] 10/19/2025 12:30 PM EDT Appointment [address] [address] Soco Alexis NP [address] [place] [address] documented as of this encounter Results * US ABDOMEN LIMITED RIGHT UPPER QUADRANT (05/31/2023 9:02 AM EST) Anatomical Region Laterality Modality Abdomen Ultrasound 05/31/2023 8:02 PM EST Impressions 06/01/2023 4:51 AM EST Hepatic steatosis. Narrative 06/01/2023 4:51 AM EST US ABDOMEN LIMITED RIGHT UPPER QUADRANT Referring clinician's provided indication for this examination in [facility]: Outside Radiology Order; Elevated Liver Enzymes; GERD [...] clinician's provided indication for this examination in [facility]:Outside Radiology Order; Elevated Liver Enzymes; GERD TECHNIQUE: [...] mm. IMPRESSION: Hepatic steatosis. Ibis Koch PA-C IM US ABDOMEN Final [...] process based on negative test result 06/08/2023 06/08/202306/11/2023 5:36 PM EST [facility] Comment:Per note documentation [...] documented as of this encounter Care Teams Nursing Educator Relationship Specialty Start Date End Date Rachana Otto MD [address] [place] [address] [email or web address] PCP - General Family Medicine 03/14/23 05/30/23 Rachana Otto MD [address] [place] [address] [place] [address] [email or web address] PCP - General Family Medicine 05/31/23 10/20/24 Pcp, Unknown PCP - General 11/11/24 12/01/24 Soco Alexis, SAMPLE EXAMINER [address] [place] [address] PCP - General Nurse Practitioner 12/02/24 Soco Alexis SAMPLE EXAMINER 03/02/17 12/01/24 Keily Maldonado CNP [address] [place] [address] Nurse Practitioner Medical Oncology 02/16/22 Cassi Carpenter PA-C [address] [place] [address] Physician Butcher Or Smallgoods Maker Medical Oncology 03/22/22 08/14/24 Azra South, OLIVIA [address] [place] [address] PHCM Logistics Specialist 05/09/22 04/08/24 Nico Patel MD [address] [place] [address] [address] [address] [email or web address] Primary Oncologist Hematology 07/13/22 Stuart Saunders MD [address] [place] [address] [email or web address] Primary Oncologist Medical Oncology 01/22/23 Glenna Granados NP [address] [place] [address] [email or web address] Nurse Practitioner Medical Oncology 03/12/23 08/14/24 Ibis Wilson RN [address] [place] [phone] [email or web address] Primary Infusion Nurse 08/14/23 Luisa Vega [address] [place] [phone] Music Therapist 07/25/24 Moni Argueta RN [address] [place] [address] [email or web address] Nurse Navigator 08/15/24 documented as of this encounter Additional Source Comments The information contained in this document represents components of the legal health record. It is not the complete legal health record.[facility]
--- OUTSIDE RECORDS SUMMARY | 2025-02-26 16:24 | XMS_ITS | Encounter Summary ---
Author Organization [facility] Address [address] [place] [address] Phone Care Team Providers Care Thermoscrew Operator Name Role Phone Soco Alexis EMAIL SPECIALIST Unavailable [phone] Keily Maldonado ICT BUSINESS ANALYST Unavailable Cassi CarpenterC Unavailable [email or web address] Azra South RN Unavailable Nico Patel MD Unavailable [phone] Stuart Saunders MD Unavailable [phone] Glenna Granados EMAIL SPECIALIST Unavailable [phone] Rachana Otto MD Primary Care Provider [phone] Ibis Wilson RN Unavailable Luisa Vega Unavailable Moni Argueta RN Unavailable Pcp, Unknown Primary Care Provider Unavailabl Soco Osullivan EMAIL SPECIALIST Primary Care Provider [phone] Encounter Details Date Type Department Care Team (Late st Contact Info) Description 06/06/2023 Procedure Pass [facility] Cardiac US [address] [place] [address] Social History Tobacco Use Types Packs/Day Years [...] st Contact Info) Description 02/17/2025 Procedure Pass [facility] [address] [place] [address] 03/17/2025 1:00 PM EST Infusion [facility] [address], [address], [address] [place] [address] Nico Patel MD 55 [facility] [address] [address] [email or web address] 03/17/2025 2:00 PM EST Office Visit [facility] [address], [address], [address] [place] [address] Krysta Villagomez FNP 32 [facility] [address] [place] [address] [email or web address] 10/19/2025 12:30 PM EDT Appointment [facility] 30 [place] [address] Soco Alexis NP [address] [place] [address] documented as of this encounter Visit Diagnoses [...] documented as of this encounter Care Teams Thermoscrew Operator Relationship Specialty Start Date End Date Rachana Otto MD [address] [place] [address] [place] [phone] [email or web address] PCP - General Family Medicine 05/31/23 10/20/24 Pcp, Unknown PCP - General 11/11/24 12/01/24 Soco Alexis EMAIL SPECIALIST [address] [place] [address] PCP - General Nurse Practitioner 12/02/24 Soco Alexis EMAIL SPECIALIST 03/02/17 12/01/24 Keily Maldonado, AUBREE [address] [place] [address] [email or web address] Nurse Practitioner Medical Oncology 02/16/22 Cassi Carpenter PA-C [address] [place] [address] [email or web address] Physician Bed And Breakfast Cook Medical Oncology 03/22/22 08/14/24 Azra South RN [address] [place] [address] [email or web address] PHC Legal Secretary Receptionist 05/09/22 04/08/24 Nico Patel MD [address] [place] [address] [email or web address] Primary Oncologist Hematology 07/13/22 Stuart Saunders MD [address] [place] [address] [email or web address] Primary Oncologist Medical Oncology 01/22/23 Glenna Granados NP [address] [place] [address] [email or web address] Nurse Practitioner Medical Oncology 03/12/23 08/14/24 Ibis Wilson, OLIVIA [address] [place] [phone] [email or web address] Primary Infusion Nurse 08/14/23 Luisa Vega [address] [place] [address] [phone] Music Therapist 07/25/24 Moni Argueta RN [address] [place] [address] Nurse Navigator 08/15/24 documented as of this encounter Additional Source Comments The information contained in this document represents components of the legal health record. It is not the complete legal health record.[facility]
--- OUTSIDE RECORDS SUMMARY | 2025-02-26 16:24 | XMS_ITS | Encounter Summary ---
Author Organization [facility] Address [address] [place] [address] Phone Care Team Providers Care M60A2 Armor Crewman Name Role Phone Soco Alexis ARTISAN PLASTERER Unavailable [phone] Paco Jean MD, MPH Unavailable [phone] Guru Glynn MD Unavailable Soco Alexis ARTISAN PLASTERER Primary Care Provider Keily Maldonado CEMETERY WORKER Unavailable Cassi CarpenterC Unavailable dylan Azra South RN Unavailable Nico Patel MD Unavailable Paco Jean MD, MPH Unavailable Ro Hardin LCSW Unavailable [email or web address] Myranda Lloyd Unavailable [email or web address] Stuart Saunders MD Unavailable [phone] Glenna Granados ARTISAN PLASTERER Unavailable [phone] Rachana Otto MD Primary Care Provider Rachana Otto MD Primary Care Provider [phone] Ibis Wilson RN Unavailable Luisa Vega Unavailable [phone] Moni Argueta RN Unavailable [phone] Pcp, Unknown Primary Care Provider UnavailSoco Hodge NP Primary Care Provider [phone] Encounter Details Date Type Department Care Team (Late st Contact Info) Description 05/23/2022 Procedure Pass [facility], Ct Scan - [address] [address] Social History Tobacco Use Types Packs/Day Years [...] 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 Wish to be (Past 1 Month) No 05/23/2022 6:54 PM Maxine Rodriguez RN 2. Non-Specific Active Suici jared Thoughts (Past 1 Month) No 05/23/2022 6:54 PM Melanie Rodriguez cia, RN 6. Suicidal Behavior (Lifetime) No 6:54 PM EST Givens, Maxine J, RN documented as of this encounter Plan of Treatment Upcoming Encounters Date Type Department Care Team (Late st Contact Info) Description 02/17/2025 Procedure Pass [address] [address] 03/17/2025 1:00 PM EST Infusion [facility] 32 [facility], 9th Floor, [address] [place] [address] Nico Patel MD [address] [place] [address] [email or web address] 03/17/2025 2:00 PM EST Office Visit [facility] 32 [facility], 9th Floor, [address] [place] [address] Krysta Villagomez FNP 32 [facility] [address] [place] [address] [email or web address] 10/19/2025 12:30 PM EDT Appointment [address] [address] Soco Alexis NP [address] [place] [address] documented as of this encounter Visit Diagnoses [...] documented as of this encounter Care Teams M60A2 Armor Crewman Relationship Specialty Start Date End Date Soco Alexis NP PCP - General Family Medicine 01/26/22 03/13/23 Rachana Otto MD [address] [place] [address] [email or web address] PCP - General Family Medicine 03/14/23 05/30/23 Rachana Otto MD [address] [place] [address] [place] [phone] [email or web address] PCP - General Family Medicine 05/31/23 10/20/24 Pcp, Unknown PCP - General 11/11/24 12/01/24 Soco Alexis ARTISAN PLASTERER [address] [place] [address] PCP - General Nurse Practitioner 12/02/24 Soco Alexis ARTISAN PLASTERER 03/02/17 12/01/24 Paco Jean MD, MPH [address] [place] [address] [email or web address] Insurance Assigned Provider 03/12/22 07/15/22 Guru Glynn MD [address] [place] [address] [address] [place] [address] [email or web address] Primary Oncologist Medical Oncology 01/24/22 05/09/23 Keily Maldonado CNP [address] [place] [address] [email or web address] Nurse Practitioner Medical Oncology 02/16/22 Cassi Carpenter PA-C [address] [place] [address] [email or web address] Physician Finish Rolls Operator Medical Oncology 03/22/22 08/14/24 Azra South, OLIVIA [address] [place] [address] [email or web address] PHCM Interior Assemblies Installer 05/09/22 04/08/24 Nico Patel MD [address] [place] [address] [address] [place] [address] [email or web address] Primary Oncologist Hematology 07/13/22 Paco Jean MD, MPH [address] [place] [address] [email or web address] Insurance Assigned Provider 09/09/22 01/13/23 Ro Hardin LCSW [address] [place], [place] [email or web address] PHCM Sales Administration Manager 12/01/22 12/11/22 Myranda Lloyd [address] [place], [place] [email or web address] PHC Community Fine Arts Teacher 01/16/23 01/17/23 Stuart Saunders MD [address] [place] [address] Primary Oncologist Medical Oncology 01/22/23 Glenna Granados NP [address] [place] [address] Nurse Practitioner Medical Oncology 03/12/23 08/14/24 Ibis Wilson, OLIVIA [address] [place] [phone] Primary Infusion Nurse 08/14/23 Luisa Vega [address] [place] [phone] Music Therapist 07/25/24 Moni Argueta, RN [address] [place] [address] [email or web address] Nurse Navigator 08/15/24 documented as of this encounter Additional Source Comments The information contained in this document represents components of the legal health record. It is not the complete legal health record.[facility]
--- OUTSIDE RECORDS SUMMARY | 2025-02-26 16:25 | XMS_ITS | Encounter Summary ---
Author Organization [facility] Address [address] [facility] [address] [place] [address] Phone Care Team Providers Care Carbon Paper Coating Supervisor Name Role Phone Keily Maldonado FREIGHT CALLER Unavailable Nico Patel MD Unavailable [phone] Stuart Saunders MD Unavailable [phone] Ibis Wilson RN Unavailable Luisa Vega Unavailable Moni Argueta RN Unavailable [phone] Soco Alexis NP Primary Care Provider [phone] Encounter Details Date Type Department Care Team (Late st Contact Info) Description 12/02/2024 Ancillary Orders [facility], X-Ray - 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 file documented as of this encounter Plan of Treatment Upcoming Encounters Date Type Department Care Team (Late st Contact Info) Description 02/17/2025 Procedure Pass [address] [address] 03/17/2025 1:00 PM EST Infusion [facility] [address] [place] [address], 9th Floor, [address] [place] [address] Nico Patel MD [address] [place] [address] [email or web address] 03/17/2025 2:00 PM EST Office Visit [facility] [address] [place] [address], 9th Floor, [address] [place] [address] Krysta Villagomez FNP 32 [facility] [address] [place] [address] [email or web address] 10/19/2025 12:30 PM EDT Appointment [address] [address] Soco Alexis, JADE [address] [place] [address] documented as of this encounter Results * [...] clinician's provided indication for this examination in [facility]: Pain COMPARISON: 10/13/2024 FINDINGS: No [...] clinician's provided indication for this examination in [facility]:Pain COMPARISON: 10/13/2024 FINDINGS: No displaced [...] documented as of this encounter Care Teams Carbon Paper Coating Supervisor Relationship Specialty Start Date End Date Soco Alexis, JADE [address] [place] [address] PCP - General Nurse Practitioner 12/02/24 Keily Maldonado CNP [address] [place] [address] [email or web address] Nurse Practitioner Medical Oncology 02/16/22 Nico Patel MD [address] [place] [address] [place], [place] [address] [email or web address] Primary Oncologist Hematology 07/13/22 Stuart Saunders MD 30 [place] [address] [email or web address] Primary Oncologist Medical Oncology 01/22/23 Ibis Wilson RN [address] [place] [phone] Primary Infusion Nurse 08/14/23 Luisa Vega [address] [place] [phone] Music Therapist 07/25/24 Moni Argueta RN [address] [place] [address] [email or web address] Nurse Navigator 08/15/24 documented as of this encounter Additional Source Comments The information contained in this document represents components of the legal health record. It is not the complete legal health record.[facility]
--- OUTSIDE RECORDS SUMMARY | 2025-02-26 16:25 | XMS_ITS | Encounter Summary ---
Author Organization [facility] Address [address] [place] [address] Phone Care Team Providers Care Architectural Associate Name Role Phone Soco Alexis FELLER BUNCHER OPERATOR Unavailable [phone] Paco Jean MD, MPH Unavailable Guru Glynn MD Unavailable [phone] Soco Alexis FELLER BUNCHER OPERATOR Primary Care Provider Keily Maldonado MILK OF LIME SLAKER Unavailable Casis CarpenterC Unavailable dylan Azra South RN Unavailable Nico Patel MD Unavailable Paco Jean MD, MPH Unavailable [phone] Ro Hardin LCSW Unavailable [email or web address] Myranda Lloyd Unavailable [email or web address] Stuart Saunders MD Unavailable [phone] Glenna Granados FELLER BUNCHER OPERATOR Unavailable [phone] Rachana Otto MD Primary Care Provider Rachana Otto MD Primary Care Provider [phone] Ibis Wilson RN Unavailable Luisa Vega Unavailable [phone] Moni Argueta RN Unavailable [phone] Pcp, Unknown Primary Care Provider UnavailSoco Hodge NP Primary Care Provider [phone] Encounter Details Date Type Department Care Team (Late st Contact Info) Description 07/06/2022 Procedure Pass [facility], Ct Scan - [address] [address] Social History Tobacco Use Types Packs/Day Years [...] 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 file documented as of this encounter Functional Status * Calculated C-SSRS Risk Score (Lifetime/Recent) Answer Date of Assessment Author No Risk Indicated 07/06/2022 6:10 AM Tana De La Torre RN * [place] Suicide Severity Rating Scale (Screener/Recent Self-Report) Question [...] st Contact Info) Description 02/17/2025 Procedure Pass [facility] 30 [place] [address] 03/17/2025 1:00 PM EST Infusion [facility] 32 [facility], 9th Floor, [address] [place] [address] Nico Patel MD [address] [facility] [address] [place] [address] 03/17/2025 2:00 PM EST Office Visit [facility] 32 [facility], 9th Floor, [address] [place] [address] Krysta Villagomez FNP 32 [facility] [place] [address] [place] [address] [email or web address] 10/19/2025 12:30 PM EDT Appointment [address] [address] Soco Alexis NP [address] [place] [address] documented as of this encounter Visit Diagnoses [...] documented as of this encounter Care Teams Architectural Associate Relationship Specialty Start Date End Date Soco Alexis FELLER BUNCHER OPERATOR PCP - General Family Medicine 01/26/22 03/13/23 Rachana Otto MD [address] [place] [address] [email or web address] PCP - General Family Medicine 03/14/23 05/30/23 Rachana Otto MD [address] [place] [phone] [email or web address] PCP - General Family Medicine 05/31/23 10/20/24 Pcp, Unknown PCP - General 11/11/24 12/01/24 Soco Alexis FELLER BUNCHER OPERATOR [address] [place] [address] PCP - General Nurse Practitioner 12/02/24 Soco Alexis FELLER BUNCHER OPERATOR 03/02/17 12/01/24 Paco Jean MD, MPH [address] [place] [address] [email or web address] Insurance Assigned Provider 03/12/22 07/15/22 Guru Glynn MD [address] [place] [address] [address] [place] [address] [email or web address] Primary Oncologist Medical Oncology 01/24/22 05/09/23 Keily Maldonado CNP [address] [place] [address] [email or web address] Nurse Practitioner Medical Oncology 02/16/22 Cassi Carpenter PA-C [address] [place] [address] [email or web address] Physician Corporate Controller Medical Oncology 03/22/22 08/14/24 Azra South, OLIVIA [address] [place] [address] [email or web address] PHCM Gis Analyst Developer 05/09/22 04/08/24 Nico Patel MD [address] [place] [address] [address] [place] [address] [email or web address] Primary Oncologist Hematology 07/13/22 Paco Jean MD, MPH [address] [place] [address] [email or web address] Insurance Assigned Provider 09/09/22 01/13/23 Ro Hardni MACHINE FEEDER RAW STOCK 10 [place] [address] [email or web address] PHCM Inspector Coated Fabrics 12/01/22 12/11/22 Myranda Lloyd 10 [place] [address] [email or web address] PHCM Community Tar Chaser 01/16/23 01/17/23 Stuart Saunders MD [address] [place] [address] Primary Oncologist Medical Oncology 01/22/23 Glenna Granados NP [address] [place] [address] Nurse Practitioner Medical Oncology 03/12/23 08/14/24 Ibis Wilson RN [address] [place] [phone] Primary Infusion Nurse 08/14/23 Luisa Vega [address] [place] [phone] Music Therapist 07/25/24 Moni Argueta RN [address] [place] [phone] [email or web address] Nurse Navigator 08/15/24 documented as of this encounter Additional Source Comments The information contained in this document represents components of the legal health record. It is not the complete legal health record.[facility]
--- OUTSIDE RECORDS SUMMARY | 2025-02-26 16:25 | XMS_ITS | Encounter Summary ---
Author Organization [facility] Address [address] [place] [address] Phone Care Team Providers Care Russian Language Professor Name Role Phone Soco Alexis ENVIRONMENTAL SPECIALIST Unavailable [phone] Rachana Otto MD Primary Care Provider [phone] Paco Jean MD, MPH Unavailable [phone] Guru Glynn MD Unavailable Soco Alexis ENVIRONMENTAL SPECIALIST Primary Care Provider Keily Maldonado SPECIAL PROCEDURES TECHNOLOGIST Unavailable Cassi CarpenterC Unavailable dylan Azra South RN Unavailable Nico Patel MD Unavailable Paco Jean MD, MPH Unavailable Ro HardinW Unavailable abdirashid Myranda Lloyd Unavailable [email or web address] Stuart Saunders MD Unavailable [phone] Granados, Glenna B ENVIRONMENTAL SPECIALIST Unavailable Rachana Otto MD Primary Care Provider [phone] Rachana Otto MD Primary Care Provider + [phone] Ibis Wilson RN Unavailable MelinaLuias tomlinsonan Unavailable [phone] Moni Argueta RN Unavailable [phone] Pcp, Unknown Primary Care Provider Unavailabl Soco Osullivan ENVIRONMENTAL SPECIALIST Primary Care Provider [phone] Encounter Details Date Type Department Care Team (Latest Contact Info) Description 02/25/2020 Transcribe Orders [facility] Laboratory [address] [facility] 2nd [place], [place] [id number] Ibis Koch PA-C [address], [address] [place] [address] [email or web address] Constipation, unspecified constipation type (Primary Dx); Abdominal [...] st Contact Info) Description 02/17/2025 Procedure Pass [facility] 30 [place], [place] [id number] 03/17/2025 1:00 PM EST Infusion [facility] [address] [facility], 9th Floor, [address] [place], [place] [phone] Nico Patel MD 55 [facility] [address] [place] [address] 03/17/2025 2:00 PM EST Office Visit [facility] 32 [facility], 9th Floor, [address] [place] [address] Krysta Villagomez FNP 32 [facility] [address] [place] [address] [email or web address] 10/19/2025 12:30 PM EDT Appointment [address] [address] Soco Alexis NP 230 [place] [address] documented as of this encounter Results * TSH (02/25/2020 11:35 AM EDT) TSH 1.42 0.27 - 4.20 uIU/mL [facility] Blood 02/25/2020 11:3 5 AM EDT 02/25/2020 11:39 AM EDT us Ibis Koch PA-C LAB BLOOD ORDERABLES Final Resu lt Performing Organization Address City/[facility]/ZIP Co de Phone Number [address] [address] * C-Reactive Protein (02/25/2020 11:35 AM EDT) C REACTIVE PROTEIN 3.5 0.0 - 4.0 mg/L [facility] Blood 02/25/2020 11:3 5 AM EDT 02/25/2020 11:39 AM EDT us Ibis Koch PA-C LAB BLOOD ORDERABLES Final Resu lt [address] [address] * (ABNORMAL) Comprehensive metabolic panel (02/25/2020 11:35 AM EDT) SODIUM 138 133 - 146 mmol/L [facility] POTASSIUM 4.2 3.3 - 5.1 mmol/L [facility] CHLORIDE 107 96 - 108 mmol/L [facility] CO2 21 21 - 35 mmol/L [facility] BUN 16 6 - 19 mg/dL [facility] CREATININE 1.00 0.5 - 1.5 mg/dL [facility] GLUCOSE 109(H) 70 - 99 mg/dL [facility] ALBUMIN 4.4 3.9 - 4.8 g/dL [facility] TOTAL PROTEIN 6.8 6.5 - 8.0 g/dL [facility] CALCIUM 8.9 8.4 - 10.3 mg/dL [facility] ALKALINE PHOSPHATASE 114 39 - 117 U/L [facility] TOTAL BILIRUBIN 0.2 0.0 - 1.2 mg/dL [facility] AST 30 0 - 37 U/L [facility] ALT 37 0 - 40 U/L [facility] GLOBULIN 2.4 1 - 4.8 g/dL [facility] EGFR 71 >59 mL/min/1.7 3m2 [facility] Comment:Estimated glomerular filtration rate calculated using the CKD-EPI equation. ANION GAP 14 10 - 20 mmol/L [facility] Blood 02/25/2020 11:3 5 AM EDT 02/25/2020 11:39 AM EDT us Ibis Koch PA-C LAB BLOOD ORDERABLES Final Resu lt [address] [address] * CBC (02/25/2020 11:35 AM EDT) WBC 6.33 4.00 - 11.00 K/uL [facility] Comment:Note Reference Range updates to all CBC and Differential results. RBC 4.24 3.72 - 5.30 M/uL [facility] HGB 13.1 10.6 - 15.5 g/dL [facility] Comment:Note updated Referen ce Ranges for all CBC and Differential results. HCT 40.0 32.0 - 45.0 % [facility] PLT 261 140 - 430 K/uL [facility] MCV 94.3 78.0 - 97.0 fL [facility] MCH 30.9 25.0 - 33.0 pg [facility] MCHC 32.8 32.0 - 36.0 g/dL [facility] RDW 12.8 11.0 - 16.0 % [facility] MPV 10.6 8.4 - 12.8 [facility] NRBC 0.00 0 /100 WBCs [facility] ABSOLUTE NRBC 0.00 0 K/uL [facility] Blood 02/25/2020 11:3 5 AM EDT 02/25/2020 11:39 AM EDT us Ibis Koch PA-C LAB BLOOD ORDERABLES Final Resu lt Performing Organization Address City/[facility]/ZIP Co de Phone Number [address] [address] * Immunoglobulin A (02/25/2020 11:35 AM EDT) IgA 186 70 - 400 mg/dL [facility] Blood 02/25/2020 11:3 5 AM EDT 02/25/2020 11:39 AM EDT Ibis Koch PA-C LAB BLOOD ORDERABLES Final Resu lt [address] [address] * Tissue transglutaminase IgA (02/25/2020 11:35 AM EDT) TTG IGA ANTIBODY <1.2 <4.0 (Negative) U/mL [facility] [address] Blood 02/25/2020 11:3 5 AM EDT 02/25/2020 11:39 AM EDT us Ibis Koch PA-C LAB BLOOD ORDERABLES Final Resu lt [facility] [address] [place] [address] documented in this encounter Visit Diagnoses Diagnosis [...] documented as of this encounter Care Teams Russian Language Professor Relationship Specialty Start Date End Date Rachana Otto MD [email or web address] PCP - General Family Medicine 02/25/20 01/25/22 Soco Alexis ENVIRONMENTAL SPECIALIST PCP - General Family Medicine 01/26/22 03/13/23 Rachana Otto MD 30 [place] [address] [email or web address] PCP - General Family Medicine 03/14/23 05/30/23 Rachana Otto MD [address] [place] [phone] [email or web address] PCP - General Family Medicine 05/31/23 10/20/24 Pcp, Unknown PCP - General 11/11/24 12/01/24 Soco Alexis ENVIRONMENTAL SPECIALIST 230 [place] [address] PCP - General Nurse Practitioner 12/02/24 Soco Alexis ENVIRONMENTAL SPECIALIST 03/02/17 12/01/24 Paco Jean MD, MPH 70 [place] [address] Insurance Assigned Provider 03/12/22 07/15/22 Guru Glynn MD [address] [place] [address] [address] [place] [address] [email or web address] Primary Oncologist Medical Oncology 01/24/22 05/09/23 Keily Maldonado CNP [address] [place] [address] [email or web address] Nurse Practitioner Medical Oncology 02/16/22 Cassi Carpenter PA-C [address] [place] [address] [email or web address] Physician Gill Box Operator Medical Oncology 03/22/22 08/14/24 Azra South, OLIVIA [address] [place] [address] [email or web address] PHCM Public Welfare Worker 05/09/22 04/08/24 Nico Patel MD [address] [place] [address] 9[place] [address] [email or web address] Primary Oncologist Hematology 07/13/22 Paco Jean MD, MPH [address] [place] [address] [email or web address] Insurance Assigned Provider 09/09/22 01/13/23 Ro Hardin LCSW [address] [place] [address] [email or web address] PHCM Audit Mgr 12/01/22 12/11/22 Myranda Lloyd [address] [place], [place] [email or web address] PHCM Community Helper Coordinator 01/16/23 01/17/23 Stuart Saunders MD [address] [place] [address] Primary Oncologist Medical Oncology 01/22/23 Glenna Granados NP [address] [place] [address] Nurse Practitioner Medical Oncology 03/12/23 08/14/24 Ibis Wilson RN [address] [place] [phone] Primary Infusion Nurse 08/14/23 Luisa Vega [address] [place] [phone] Music Therapist 07/25/24 Moni Argueta RN [address] [place] [address] [email or web address] Nurse Navigator 08/15/24 documented as of this encounter Additional Source Comments The information contained in this document represents components of the legal health record. It is not the complete legal health record.[facility]
--- OUTSIDE RECORDS SUMMARY | 2025-02-26 16:25 | XMS_ITS | Encounter Summary ---
Author Organization [facility] Address [address] [place] [address] Phone Care Team Providers Care Compliance Quality Performance Analyst Name Role Phone Soco Alexis SKI MAKER Unavailable [phone] Paco Jean MD, MPH Unavailable Guru Glynn MD Unavailable Soco Alexis SKI MAKER Primary Care Provider Keily Maldonado CYCLING INSTRUCTOR Unavailable Cassi CarpenterC Unavailable dylan Azra South RN Unavailable Nico Patel MD Unavailable Paco Jean MD, MPH Unavailable Ro Hardin LCSW Unavailable [email or web address] Myranda Lloyd Unavailable [email or web address] Stuart Saunders MD Unavailable [phone] Glenna Granados SKI MAKER Unavailable [phone] Rachana Otto MD Primary Care Provider Rachana Otto MD Primary Care Provider [phone] Ibis Wilson RN Unavailable Luisa Vega Unavailable [phone] Moni Argueta RN Unavailable [phone] Pcp, Unknown Primary Care Provider UnavailSoco Hodge NP Primary Care Provider [phone] Encounter Details Date Type Department Care Team (Late st Contact Info) Description 06/22/[address] [facility] Imaging - RF/IR [address] 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 32 [facility], 9th Floor, [address] [place] [address] Nico Patel MD 55 [facility] 9[place] [address] [email or web address] 03/17/2025 2:00 PM EST Office Visit [facility] 32 [facility], 9th Floor, [address] [place] [address] Krysta Villagomez FNP 32 [facility] [address] [place] [address] [email or web address] 10/19/2025 12:30 PM EDT Appointment [facility] 30 [place] [address] Soco Alexis, SKI MAKER 230 [place] [address] documented as of this encounter Visit Diagnoses [...] documented as of this encounter Care Teams Compliance Quality Performance Analyst Relationship Specialty Start Date End Date Soco Alexis NP PCP - General Family Medicine 01/26/22 03/13/23 Rachana Otto MD 30 [place] [address] [email or web address] PCP - General Family Medicine 03/14/23 05/30/23 Rachana Otto MD [address] [place] [phone] [email or web address] PCP - General Family Medicine 05/31/23 10/20/24 Pcp, Unknown PCP - General 11/11/24 12/01/24 Soco Alexis SKI MAKER 230 [place] [address] PCP - General Nurse Practitioner 12/02/24 Soco Alexis SKI MAKER 03/02/17 12/01/24 Paco Jean MD, MPH 70 [place] [address] [email or web address] Insurance Assigned Provider 03/12/22 07/15/22 Guru Glynn MD [address] [place], [place] [address] [address] [place] [address] [email or web address] Primary Oncologist Medical Oncology 01/24/22 05/09/23 Keily Maldonado CNP 30 [place] [address] [email or web address] Nurse Practitioner Medical Oncology 02/16/22 Cassi Carpenter PA-C 30 [place] [address] [email or web address] Physician Scudding Inspector Medical Oncology 03/22/22 08/14/24 Azra South, OLIVIA [address] [place] [address] [email or web address] PHCM Mortician Supplies Sales Representative 05/09/22 04/08/24 Nico Patel MD [address] [place] [address] [email or web address] Primary Oncologist Hematology 07/13/22 Paco Jean MD, MPH [address] [place] [address] [email or web address] Insurance Assigned Provider 09/09/22 01/13/23 Ro Hardin TURNTABLE OPERATOR 10 [place], [place] [email or web address] PHCM Egg Producer 12/01/22 12/11/22 Myranda Lloyd [address] [place] [address] [email or web address] PHCM Community Image Archivist 01/16/23 01/17/23 Stuart Saunders MD 30 [place] [address] [email or web address] Primary Oncologist Medical Oncology 01/22/23 Glenna Granados, SKI MAKER 30 [place] [address] Nurse Practitioner Medical Oncology 03/12/23 08/14/24 Ibis Wilson RN 100 [place] [phone] Primary Infusion Nurse 08/14/23 Luisa Vega [address] [place] [phone] Music Therapist 07/25/24 Moni Argueta RN 30 [place] [address] [email or web address] Nurse Navigator 08/15/24 documented as of this encounter Additional Source Comments The information contained in this document represents components of the legal health record. It is not the complete legal health record.[facility]
--- OUTSIDE RECORDS SUMMARY | 2025-02-26 16:25 | XMS_ITS | Encounter Summary ---
Author Organization [facility] Address [address] [place] [address] Phone Care Team Providers Care X Ray Equipment Tester Name Role Phone Soco Alexis DIRECTOR OCCUPATIONAL Unavailable [phone] Paco Jean MD, MPH Unavailable [phone] Guru Glynn MD Unavailable [phone] Soco Alexis DIRECTOR OCCUPATIONAL Primary Care Provider Keily Maldonado [facility] Unavailable Cassi CarpenterC Unavailable dylan Azra South RN Unavailable Nico Patel MD Unavailable Paco Jean MD, MPH Unavailable Ro Hardin LCSW Unavailable [email or web address] Myranda Lloyd Unavailable [email or web address] Stuart Saunders MD Unavailable [phone] Glenna Granados DIRECTOR OCCUPATIONAL Unavailable [phone] Rachana Otto MD Primary Care Provider Rachana Otto MD Primary Care Provider [phone] Ibis Wilson RN Unavailable Luisa Vega Unavailable [phone] Moni Argueta RN Unavailable [phone] Pcp, Unknown Primary Care Provider UnavailSoco Hodge NP Primary Care Provider [phone] Encounter Details Date Type Department Care Team (Late st Contact Info) Description 07/06/2022 Procedure Pass [facility] Ct Scan - [address] [address] Social History Tobacco Use Types Packs/Day Years [...] 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 file documented as of this encounter Functional Status * Calculated C-SSRS Risk Score (Lifetime/Recent) Answer Date of Assessment Author No Risk Indicated 07/06/2022 6:10 AM Tana De La Torre RN * [place] Suicide Severity Rating Scale (Screener/Recent Self-Report) Question [...] Contact Info) Description 02/17/2025 Procedure Pass [facility] 30 [place] [address] 03/17/2025 1:00 PM EST Infusion [facility] 32 [facility], 9th Floor, [address] [place] [address] Nico Patel MD [address] [place] [address] 03/17/2025 2:00 PM EST Office Visit [facility] 32 [facility], 9th Floor, [address] [place] [address] Krysta Villagomez FNP [address] [facility] [address] [place] [address] [email or web address] 10/19/2025 12:30 PM EDT Appointment [address] [address] Soco Alexis NP 230 [place] [address] documented as of this encounter Visit Diagnoses [...] documented as of this encounter Care Teams X Ray Equipment Tester Relationship Specialty Start Date End Date Soco Alexis DIRECTOR OCCUPATIONAL PCP - General Family Medicine 01/26/22 03/13/23 Rachana Otto MD [address] [place] [address] [email or web address] PCP - General Family Medicine 03/14/23 05/30/23 Rachana Otto MD [address] [place] [phone] [email or web address] PCP - General Family Medicine 05/31/23 10/20/24 Pcp, Unknown PCP - General 11/11/24 12/01/24 Soco Alexis DIRECTOR OCCUPATIONAL 230 [place] [address] PCP - General Nurse Practitioner 12/02/24 Soco Alexis DIRECTOR OCCUPATIONAL 03/02/17 12/01/24 Paco Jean MD, MPH 70 [place] [address] [email or web address] Insurance Assigned Provider 03/12/22 07/15/22 Guru Glynn MD [address] [place] [address] [address] [place] [address] [email or web address] Primary Oncologist Medical Oncology 01/24/22 05/09/23 Keily Maldonado CNP 30 [place] [address] [email or web address] Nurse Practitioner Medical Oncology 02/16/22 Cassi Carpenter PA-C 30 [place] [address] [email or web address] Physician Press Assistant And Feeder Medical Oncology 03/22/22 08/14/24 Azra South, OLIVIA [address] [place] [address] [email or web address] PHCM Fuel Cell Technician 05/09/22 04/08/24 Nico Patel MD [address] [place] [address] [address] [place] [address] [email or web address] Primary Oncologist Hematology 07/13/22 Paco Jean MD, MPH 70 [place] [address] [email or web address] Insurance Assigned Provider 09/09/22 01/13/23 Ro Hardin [employer] MEMBERSHIP SALES AGENT 10 [place] [address] [email or web address] PHCM Pan Pusher 12/01/22 12/11/22 Myranda Lolyd 10 [place] [address] [email or web address] PHCM Community Veterinary Anatomist 01/16/23 01/17/23 Stuart Saunders MD [address] [place] [address] Primary Oncologist Medical Oncology 01/22/23 Glenna Granados NP [address] [place] [address] Nurse Practitioner Medical Oncology 03/12/23 08/14/24 Ibis Wilson RN [address] [place] [phone] Primary Infusion Nurse 08/14/23 Luisa Vega [address] [place] [phone] Music Therapist 07/25/24 Moni Argueta RN [address] [place] [phone] [email or web address] Nurse Navigator 08/15/24 documented as of this encounter Additional Source Comments The information contained in this document represents components of the legal health record. It is not the complete legal health record.[facility]
--- OUTSIDE RECORDS SUMMARY | 2025-02-26 16:25 | XMS_ITS | Encounter Summary ---
Author Organization [facility] Address [address] [place] [address] Phone Care Team Providers Care Spanish Teacher Name Role Phone Soco Alexis STRUCTURAL IRON ERECTOR Unavailable [phone] Rachana Otto MD Primary Care Provider [phone] Paco Jean MD, MPH Unavailable Guru Glynn MD Unavailable Soco Alexis STRUCTURAL IRON ERECTOR Primary Care Provider Keily Maldonado TREATMENT COORDINATOR Unavailable Cassi CarpenterC Unavailable dylan Azra South RN Unavailable Nico Patel MD Unavailable [phone] Paco Jean MD, MPH Unavailable Ro HardinW Unavailable abdirashid Myranda Lloyd Unavailable [email or web address] Stuart Saunders MD Unavailable [phone] Granados, Glenna B STRUCTURAL IRON ERECTOR Unavailable [phone] Rachana Otto MD Primary Care Provider [phone] Rachana Otto MD Primary Care Provider + [phone] Ibis Wilson RN Unavailable GaryLuisaan Unavailable [phone] Moni Argueta RN Unavailable [phone] Pcp, Unknown Primary Care Provider UnavailSoco Hodge STRUCTURAL IRON ERECTOR Primary Care Provider [phone] Encounter Details Date Type Department Care Team (Late Contact Info) Description 08/04/2021 Ancillary Orders [facility] [address] [place] [address] System, Provider Not In, [place] [address] Social History Tobacco Use Types Packs/Day Years [...] (Late Contact Info) Description 02/17/2025 Procedure Pass [facility], [facility] [address] [place] [address] 03/17/2025 1:00 PM EST Infusion [facility] 32 [facility], 9th Floor, [address] [place] [address] Nico Patel MD [address] [facility] [address] [place] [address] 03/17/2025 2:00 PM EST Office Visit [facility] 32 [facility], 9th Floor, [address] [place] [address] Krysta Villagomez FNP 32 [facility] 9[address] 9 [place] [address] [email or web address] 10/19/2025 12:30 PM EDT Appointment [facility] 30 [place] [address] Soco Alexis NP [address] [place] [address] documented as of this encounter Results * [...] documented as of this encounter Care Teams Spanish Teacher Relationship Specialty Start Date End Date Rachana Otto MD [email or web address] PCP - General Family Medicine 02/25/20 01/25/22 Soco Alexis STRUCTURAL IRON ERECTOR PCP - General Family Medicine 01/26/22 03/13/23 Rachana Otto MD [address] [place] [address] [email or web address] PCP - General Family Medicine 03/14/23 05/30/23 Rachana Otto MD [address] [place] [address] [place] [phone] [email or web address] PCP - General Family Medicine 05/31/23 10/20/24 Pcp, Unknown PCP - General 11/11/24 12/01/24 Soco Alexis, STRUCTURAL IRON ERECTOR [address] [place] [address] PCP - General Nurse Practitioner 12/02/24 Soco Alexis, STRUCTURAL IRON ERECTOR 03/02/17 12/01/24 Paco Jean MD, MPH [address] [place] [address] Insurance Assigned Provider 03/12/22 07/15/22 Guru Glynn MD [address] [place] [address] [address] [place] [address] [email or web address] [email or web address] Primary Oncologist Medical Oncology 01/24/22 05/09/23 Keily Maldonado CNP [address] [place] [address] Nurse Practitioner Medical Oncology 02/16/22 Cassi Carpenter PA-C [address] [place] [address] Physician General Dentist Medical Oncology 03/22/22 08/14/24 Azra South RN 10 [place] [address] PHCM Biomass Power Plant Manager 05/09/22 04/08/24 Nico Patel MD [address] [place] [address] [address] [place] [address] [email or web address] Primary Oncologist Hematology 07/13/22 Paco Jean MD, MPH [address] [place] [address] [email or web address] Insurance Assigned Provider 09/09/22 01/13/23 Ro Hardin LCSW 10 [place] [address] [email or web address] PHCM Target Developer 12/01/22 12/11/22 Myranda Lloyd [address] [place], [place] [email or web address] Community Digital Recruiter 01/16/23 01/17/23 Stuart Saunders MD [address] [place] [address] [email or web address] Primary Oncologist Medical Oncology 01/22/23 Glenna Granados STRUCTURAL IRON ERECTOR [address] [place] [address] [email or web address] Nurse Practitioner Medical Oncology 03/12/23 08/14/24 Ibis Wilson RN [address] [place] [phone] Primary Infusion Nurse 08/14/23 Luisa Vega 100 [place] [phone] Music Therapist 07/25/24 Moni Argueta, OLIVIA [address] [place] [address] [email or web address] Nurse Navigator 08/15/24 documented as of this encounter Additional Source Comments The information contained in this document represents components of the legal health record. It is not the complete legal health record.[facility]
--- OUTSIDE RECORDS SUMMARY | 2025-02-26 16:25 | XMS_ITS | Encounter Summary ---
Author Organization [facility] Address [address] [place] [address] Phone Care Team Providers Care Legislative Aide Name Role Phone Soco Alexis FREIGHT UNLOADER Unavailable [phone] Rachana Otto MD Primary Care Provider [phone] Paco Jean MD, MPH Unavailable Guru Glynn MD Unavailable Soco Alexis FREIGHT UNLOADER Primary Care Provider Keily Maldonado TANK CARPENTER Unavailable Cassi CarpenterC Unavailable dylan Azra South RN Unavailable Nico Patel MD Unavailable Paco Jean MD, MPH Unavailable [phone] Ro HardinW Unavailable abdirashid Myranda Lloyd Unavailable [email or web address] the feeble-[email or web address] Stuart Saunders MD Unavailable [phone] Granados, Glenna B FREIGHT UNLOADER Unavailable [phone] Rachana Otto MD Primary Care Provider [phone] Rachana Otto MD Primary Care Provider [phone] Ibis Wilson RN Unavailable MelinaLuisa tomlinsonan Unavailable [phone] Moni Argueta RN Unavailable [phone] Pcp, Unknown Primary Care Provider Unavailabl Soco Osullivan FREIGHT UNLOADER Primary Care Provider [phone] Encounter Details Date Type Department Care Team (Latest Contact Info) Description 02/26/2020 Transcribe Orders Virtual Department 30 [place] [address] Ibis Koch PA-C [address], [address] [place] [address] [email or web address] Constipation, unspecified constipation type (Primary Dx); Epigastric [...] st Contact Info) Description 02/17/2025 Procedure Pass [facility], [facility] 30 [place] [address] 03/17/2025 1:00 PM EST Infusion [facility] 32 [facility], 9th Floor, [address] [place], [place] [phone] Nico Patel MD [address] [facility] [address] [place] [address] [email or web address] 03/17/2025 2:00 PM EST Office Visit [facility] 32 [facility], 9th Floor, [address] [place] [address] Krysta Villagomez FNP 32 [facility] [address] 9 [place] [address] [email or web address] 10/19/2025 12:30 PM EDT Appointment [facility] 30 [place] [address] Soco Alexis NP 230 [place] [address] documented as of this encounter Results * [...] with upper abdominal pain. Ibis Koch PA-C Adore US ABDOMEN Final Result documented in this [...] documented as of this encounter Care Teams Legislative Aide Relationship Specialty Start Date End Date Rachana Otto MD [email or web address] PCP - General Family Medicine 02/25/20 01/25/22 Soco Alexis FREIGHT UNLOADER PCP - General Family Medicine 01/26/22 03/13/23 Rachana Otto MD 30 [place] [address] [email or web address] PCP - General Family Medicine 03/14/23 05/30/23 Rachana Otto MD [address] [place] [phone] [email or web address] PCP - General Family Medicine 05/31/23 10/20/24 Pcp, Unknown PCP - General 11/11/24 12/01/24 Soco Alexis, FREIGHT UNLOADER 230 [place] [address] PCP - General Nurse Practitioner 12/02/24 Soco Alexis FREIGHT UNLOADER 03/02/17 12/01/24 Paco Jean MD, MPH 70 [place] [address] [email or web address] Insurance Assigned Provider 03/12/22 07/15/22 Guru Glynn MD [address] [place] [address] [address] [place] [address] [email or web address] Primary Oncologist Medical Oncology 01/24/22 05/09/23 Keily Maldonado CNP 30 [place] [address] [email or web address] Nurse Practitioner Medical Oncology 02/16/22 Cassi Carpenter PA-C [address] [place] [address] [email or web address] Physician Engineering Document Control Clerk Medical Oncology 03/22/22 08/14/24 Azra South RN [address] [place] [address] [email or web address] PHCM County Supervisor 05/09/22 04/08/24 Nico Patel MD [address] [place] [address] [email or web address] Primary Oncologist Hematology 07/13/22 Paco Jean MD, MPH [address] [place] [address] [email or web address] Insurance Assigned Provider 09/09/22 01/13/23 Ro Hardin, COAT TAILOR [address] [place] [address] [email or web address] PHCM Shoe Stock Associate 12/01/22 12/11/22 Myranda Lloyd [address] [place] [address] [email or web address] PHCM Community Lens Engraver 01/16/23 01/17/23 Stuart Saunders MD 30 [place] [address] [email or web address] Primary Oncologist Medical Oncology 01/22/23 Glenna Granados, FREIGHT UNLOADER [address] [place] [address] [email or web address] Nurse Practitioner Medical Oncology 03/12/23 08/14/24 Ibis Wilson RN [address] [place] [phone] [email or web address] Primary Infusion Nurse 08/14/23 Luisa Vega [address] [place] [phone] Music Therapist 07/25/24 Moni Argueta RN [address] [place] [address] [email or web address] Nurse Navigator 08/15/24 documented as of this encounter Additional Source Comments The information contained in this document represents components of the legal health record. It is not the complete legal health record.[facility]
--- OUTSIDE RECORDS SUMMARY | 2025-02-26 16:25 | XMS_ITS | Encounter Summary ---
Author Organization [facility] Address [address] [place] [address] Phone Care Team Providers Care Sheet Metal Assembler And Riveter Name Role Phone Soco Alexis NURSES MEDICAL ASSISTANTS PHLEBOTOMISTS Unavailable [phone] Rachana Otto MD Primary Care Provider [phone] Paco Jean MD, MPH Unavailable Guru Glynn MD Unavailable Soco Alexis NURSES MEDICAL ASSISTANTS PHLEBOTOMISTS Primary Care Provider Keily Maldonado DESIGN TECH Unavailable Cassi CarpenterC Unavailable dylan Azra South RN Unavailable Nico Patel MD Unavailable Paco Jean MD, MPH Unavailable Ro HardinW Unavailable abdirashid Myranda Lloyd Unavailable [email or web address] Stuart Saunders MD Unavailable [phone] Granados, Glenna B NURSES MEDICAL ASSISTANTS PHLEBOTOMISTS Unavailable [phone] Rachana Otto MD Primary Care Provider [phone] Rachana Otto MD Primary Care Provider [phone] Ibis Wilson RN Unavailable Luisa Vega Unavailable [phone] Moni Argueta RN Unavailable [phone] Pcp, Unknown Primary Care Provider Unavailabl Soco Osullivan NURSES MEDICAL ASSISTANTS PHLEBOTOMISTS Primary Care Provider [phone] Encounter Details Date Type Department Care Team (Late st Contact Info) Description 05/03/2020 Procedure Pass [address] [address] Social History Tobacco Use Types Packs/Day Years [...] Contact Info) Description 02/17/2025 Procedure Pass [address] [address] 03/17/2025 1:00 PM EST Infusion [facility] 32 [facility], 9th Floor, [address] [place] [address] Nico Patel MD [address] [place] [address] [facility] [place] [address] [email or web address] 03/17/2025 2:00 PM EST Office Visit [facility] 32 [facility], 9th Floor, [address] [place] [address] Krysta Villagomez, HAT BRIM AND CROWN LAMINATING OPERATOR 32 [facility] 9YAW 9 [place] [address] [email or web address] 10/19/2025 12:30 PM EDT Appointment [facility] 30 [place] [address] Soco Alexis, NURSES MEDICAL ASSISTANTS PHLEBOTOMISTS 230 [place] [address] documented as of this encounter Visit Diagnoses [...] documented as of this encounter Care Teams Sheet Metal Assembler And Riveter Relationship Specialty Start Date End Date Rachana Otto MD [email or web address] PCP - General Family Medicine 02/25/20 01/25/22 Soco Alexis NURSES MEDICAL ASSISTANTS PHLEBOTOMISTS PCP - General Family Medicine 01/26/22 03/13/23 Rachana Otto MD 30 [place] [address] [email or web address] PCP - General Family Medicine 03/14/23 05/30/23 Rachana Otto MD [address] [place] [address] [place] [phone] [email or web address] PCP - General Family Medicine 05/31/23 10/20/24 Pcp, Unknown PCP - General 11/11/24 12/01/24 Soco Alexis NURSES MEDICAL ASSISTANTS PHLEBOTOMISTS 230 [place] [address] PCP - General Nurse Practitioner 12/02/24 Soco Alexis NURSES MEDICAL ASSISTANTS PHLEBOTOMISTS 03/02/17 12/01/24 Paco Jean MD, MPH [address] [place] [address] [email or web address] Insurance Assigned Provider 03/12/22 07/15/22 Guru Glynn MD [address] [place] [address] [address] [place] [address] [email or web address] Primary Oncologist Medical Oncology 01/24/22 05/09/23 Keily Maldonado CNP [address] [place] [address] [email or web address] Nurse Practitioner Medical Oncology 02/16/22 Cassi Carpenter PA-C [address] [place] [address] [email or web address] Physician Filler And Trimmer Medical Oncology 03/22/22 08/14/24 Azra South, OLIVIA [address] [place] [address] [email or web address] PHCM Marketing Administrator 05/09/22 04/08/24 Nico Patel MD [address] [place] [address] [email or web address] Primary Oncologist Hematology 07/13/22 Paco Jean MD, MPH [address] [place] [address] [email or web address] Insurance Assigned Provider 09/09/22 01/13/23 Ro Hardin, ASSEMBLER SEMICONDUCTOR [address] [place], [place] [email or web address] PHCM Vehicle Insurance Agent 12/01/22 12/11/22 Myranda Lloyd [address] [place], [place] [email or web address] PHCM Community Cable Driller 01/16/23 01/17/23 Stuart Saunders MD [address] [place] [address] Primary Oncologist Medical Oncology 01/22/23 Glenna Granados NP [address] [place] [address] Nurse Practitioner Medical Oncology 03/12/23 08/14/24 Ibis Wilson RN [address] [place] [phone] Primary Infusion Nurse 08/14/23 Luisa Vega [address] [place] [phone] Music Therapist 07/25/24 Moni Argueta, OLIVIA [address] [place] [address] [email or web address] Nurse Navigator 08/15/24 documented as of this encounter Additional Source Comments The information contained in this document represents components of the legal health record. It is not the complete legal health record.[facility]
--- OUTSIDE RECORDS SUMMARY | 2025-02-26 16:25 | XMS_ITS | Encounter Summary ---
Author Organization [facility] Address [address] [place] [address] Phone Care Team Providers Care Enterprise Account Executive Name Role Phone Soco Alexis SCRAPER HAND Unavailable [phone] Rachana Otto MD Primary Care Provider [phone] Paco Jean MD, MPH Unavailable Guru Glynn MD Unavailable Soco Alexis SCRAPER HAND Primary Care Provider Keily Maldonado FARMWORKER FRYER FARM Unavailable Cassi CarpenterC Unavailable dylan Azra South RN Unavailable Nico Patel MD Unavailable Paco Jean MD, MPH Unavailable Ro HardinW Unavailable abdirashid Myranda Lloyd Unavailable [email or web address] Stuart Saunders MD Unavailable [phone] Granados, Glenna B SCRAPER HAND Unavailable [phone] Rachana Otto MD Primary Care Provider [phone] Rachana Otto MD Primary Care Provider [phone] Ibis Wilson RN Unavailable Luisa Vegaan Unavailable [phone] Moni Argueta RN Unavailable [phone] Pcp, Unknown Primary Care Provider Unavailabl Soco Osullivan SCRAPER HAND Primary Care Provider [phone] Encounter Details Date Type Department Care Team (Late st Contact Info) Description 04/07/2020 Procedure Pass [facility] Admitting [facility] Department [address] [place] [address] Social History Tobacco Use Types Packs/Day Years [...] st Contact Info) Description 02/17/2025 Procedure Pass [facility] 30 [place] [address] 03/17/2025 1:00 PM EST Infusion [facility] 32 [facility], 9th Floor, [address] [place] [address] Nico Patel MD [address] [place], [place] [address] [place] [address] [email or web address] 03/17/2025 2:00 PM EST Office Visit [facility] 32 [facility], 9th Floor, [address] [place] [address] Krysta Villagomez, MAINTENANCE MECHANIC 32 [facility] 9YAW 9 [place] [address] [email or web address] 10/19/2025 12:30 PM EDT Appointment [facility] 30 [place] [address] Soco Alexis, SCRAPER HAND 230 [place] [address] documented as of this encounter Visit Diagnoses [...] EST CoV-Risk Comment:Per note documentation 06/07/2024 06/07/2024 5 12:39 PM EST CDiff-Risk 07/22/2024 07/22/2024 07/23/2024 1:38 PM EDT Influenza A 07/22/2024 07/22/2024 07/29/2024 1:21 AM EDT CoV-Risk Comment:Per note documentation 10/09/2024 10/14/2024 11:00 AM EDT Parainfluenza Comment:Adults with parainfluenza: Maintain standard precautions. See Isolation Precautions and Duration of Isolation policy in [employer] for details 10/14/2024 10/14/2024 10/21/2024 1:21 AM E DT documented as of this encounter Care Teams Enterprise Account Executive Relationship Specialty Start Date End Date Rachana Otto MD [email or web address] PCP - General Family Medicine 02/25/20 01/25/22 Soco Alexis, SCRAPER HAND PCP - General Family Medicine 01/26/22 03/13/23 Rachana Otto MD [address] [place] [address] [email or web address] PCP - General Family Medicine 03/14/23 05/30/23 Rachana Otto MD [address] [place] [address] [place] [address] [email or web address] PCP - General Family Medicine 05/31/23 10/20/24 Pcp, Unknown PCP - General 11/11/24 12/01/24 Soco Alexis, SCRAPER HAND [address] [place] [address] PCP - General Nurse Practitioner 12/02/24 Soco Alexis SCRAPER HAND 03/02/17 12/01/24 Paco Jean MD, MPH [address] [place] [address] [email or web address] Insurance Assigned Provider 03/12/22 07/15/22 Guru Glynn MD [address] [place] [address] [address] [place] [address] [email or web address] Primary Oncologist Medical Oncology 01/24/22 05/09/23 Keily Maldonado CNP [address] [place] [address] [email or web address] Nurse Practitioner Medical Oncology 02/16/22 Cassi Carpenter PA-C [address] [place] [address] [email or web address] Physician Hat Mender Medical Oncology 03/22/22 08/14/24 Azra South RN 10 [place] [address] [email or web address] PHCM Mailer 05/09/22 04/08/24 Nico Patel MD [address] [place] [address] 9[place] [address] [email or web address] Primary Oncologist Hematology 07/13/22 Paco Jean MD, MPH [address] [place] [address] Insurance Assigned Provider 09/09/22 01/13/23 Ro Hardin, DISC RULER OPERATOR 10 [place], [place] PHCM Fiscal Economist 12/01/22 12/11/22 Myranda Lloyd 10 [place], [place] [email or web address] PHC Community Store Consultant 01/16/23 01/17/23 Stuart Saunders MD [address] [place] [address] Primary Oncologist Medical Oncology 01/22/23 Glenna Granados NP [address] [place] [address] Nurse Practitioner Medical Oncology 03/12/23 08/14/24 Ibis Wilson RN [address] [place] [phone] Primary Infusion Nurse 08/14/23 Luisa Vega [address] [place] [phone] Music Therapist 07/25/24 Moni Argueta RN [address] [place] [phone] [email or web address] Nurse Navigator 08/15/24 documented as of this encounter Additional Source Comments The information contained in this document represents components of the legal health record. It is not the complete legal health record.[facility]
--- OUTSIDE RECORDS SUMMARY | 2025-02-26 16:25 | XMS_ITS | Encounter Summary ---
Author Organization [facility] Address [address] [place] [address] Phone Care Team Providers Care Internetworking Technician Name Role Phone Soco Alexis GENERAL CAR YARD SUPERVISOR Primary Care Provider [phone] Soco Alexis GENERAL CAR YARD SUPERVISOR Unavailable [phone] Paolo Collazo MD Unavailable [phone] Rachana Otto MD Primary Care Provider [phone] Paco Jean MD, MPH Unavailable + [phone] Guur Glynn MD Unavailable Soco Alexis GENERAL CAR YARD SUPERVISOR Primary Care Provider +[phone] Keily Maldonado POWERBUILDER Unavailable Cassi Carpenter-C Unavailable pnugebelén Azra South RN Unavailable Nico Patel MD Unavailable Paco Jean MD, MPH Unavailable + [phone] Ro HardinW Unavailable [email or web address] Myranda Lloyd Unavailable [email or web address] Stuart Saunders MD Unavailable [phone] Glenna Granados GENERAL CAR YARD SUPERVISOR Unavailable [phone] Rachana Otto MD Primary Care Provider [phone] Rachana Otto MD Primary Care Provider [phone] Ibis Wilson RN Unavailable Luisa Vega Unavailable [phone] Moni Argueta RN Unavailable [phone] Pcp, Unknown Primary Care Provider UnavailSoco Hodge GENERAL CAR YARD SUPERVISOR Primary Care Provider [phone] Encounter Details Date Type Department Care Team (Latest Contact Info) Description 06/19/2018 Transcribe Orders [facility] 30 [place] [address] Man Michelle MD [address] [place] [address], [address] [place] [address] [email or web address] Sarcoidosis, unspecified (Primary Dx) Social History [...] Contact Info) Description 02/17/2025 Procedure Pass [facility] 30 [place] [address] 03/17/2025 1:00 PM EST Infusion [facility] [address] [facility], 9th Floor, [address] [place] [address] Nico Patel MD [address] [place] [address] [address] [place] [address] [email or web address] 03/17/2025 2:00 PM EST Office Visit [facility] [address] [facility], 9th Floor, [address] [place] [address] Krysta Villagomez FNP [address] [facility] [address] [place] [address] [email or web address] 10/19/2025 12:30 PM EDT Appointment [address] [address] Soco Alexis NP 230 [place] [address] documented as of this encounter Results * Pulmonary Function Test Reason for Exam: Sarcoidosis; Type of PFT Test: Spirometry with bronchodilator, Spirometry while seated and supine, Lung Volumes, DLCO; Performing Location: [facility] (06/21/2018 6:59 AM EST) Anatomical Region Laterality [...] with patient obesity. Man Michelle M.D. Dictator/Robin: [id number] Date/Time Date/Time Modified Date: 06/28/2018 04:24:36 [id number] This report has not been authenticated by the dictating clinician unless signature appears above, or an electronic signature statement appears below this line. CC: Soco Alexis, GLORY Man Michelle MD PFT ORDERABLES Final Result [...] documented as of this encounter Care Teams Internetworking Technician Relationship Specialty Start Date End Date Soco Alexis GENERAL CAR YARD SUPERVISOR PCP - General Family Medicine 03/02/17 02/24/20 Rachana Otto MD [address] [place] [address] [email or web address] PCP - General Family Medicine 02/25/20 01/25/22 Soco Alexis GENERAL CAR YARD SUPERVISOR PCP - General Family Medicine 01/26/22 03/13/23 Rachana Otto MD 30 [place] [address] [email or web address] PCP - General Family Medicine 03/14/23 05/30/23 Rachana Otto MD [address] [place] [id number] [email or web address] PCP - General Family Medicine 05/31/23 10/20/24 Pcp, Unknown PCP - General 11/11/24 12/01/24 Soco Alexis GENERAL CAR YARD SUPERVISOR [address] [place] [address] PCP - General Nurse Practitioner 12/02/24 Soco Alexis GENERAL CAR YARD SUPERVISOR 03/02/17 12/01/24 Paolo Collazo MD [address] [place] [address] [email or web address] Insurance Assigned Provider 06/06/19 08/13/19 Paco Jean MD, MPH [address] [place] [address] [email or web address] Insurance Assigned Provider 03/12/22 07/15/22 Guru Glynn MD [address] [place] [address] [address] [place] [address] [email or web address] Primary Oncologist Medical Oncology 01/24/22 05/09/23 Keily Maldonado CNP [address] [place] [address] Nurse Practitioner Medical Oncology 02/16/22 Cassi Carpenter PA-C 30 [place] [address] Physician Mechanical Engineering Advisor Medical Oncology 03/22/22 08/14/24 Azra South, OLIVIA 10 [place] [address] PHCM Durability Engineer 05/09/22 04/08/24 Nico Patel MD [address] [place] [address] [address] [place] [address] [email or web address] Primary Oncologist Hematology 07/13/22 Paco Jean MD, MPH 70 [place] [address] [email or web address] Insurance Assigned Provider 09/09/22 01/13/23 Ro Hardin LCSW 10 [place], [place] [email or web address] PHCM C Java Developer 12/01/22 12/11/22 Myranda Lloyd [address] [place], [place] [email or web address] Community [email or web address] [email or web address] 01/16/23 01/17/23 Stuart Saunders MD 30 [place] [address] [email or web address] Primary Oncologist Medical Oncology 01/22/23 Glenna Granados GENERAL CAR YARD SUPERVISOR [address] [place] [address] [email or web address] Nurse Practitioner Medical Oncology 03/12/23 08/14/24 Ibis Wilson RN 100 [place] [address] Primary Infusion Nurse 08/14/23 Luisa Vega 100 [place] [address] [email or web address] Music Therapist 07/25/24 Moni Argueta, OLIVIA 30 [place] [address] [email or web address] g Nurse Navigator 08/15/24 documented as of this encounter Additional Source Comments The information contained in this document represents components of the legal health record. It is not the complete legal health record.[facility]
--- OUTSIDE RECORDS SUMMARY | 2025-02-26 16:25 | XMS_ITS | Encounter Summary ---
Author Organization [facility] Address [address] [place] [address] Phone Care Team Providers Care Bronze Plater Name Role Phone Soco Alexis EMULSION OPERATOR Primary Care Provider [phone] Soco Alexis EMULSION OPERATOR Unavailable [phone] Paolo Collazo MD Unavailable [phone] Rachana Otto MD Primary Care Provider [phone] Paco Jean MD, MPH Unavailable + [phone] Guru Glynn MD Unavailable Soco Alexis EMULSION OPERATOR Primary Care Provider +[phone] Keily Maldonado METAL CNC OPERATOR Unavailable Cassi Carpenter-C Unavailable pnugebelén Azra South RN Unavailable Nico Patel MD Unavailable Paco Jean MD, MPH Unavailable + [phone] Ro HardinW Unavailable [email or web address] Myranda Lloyd Unavailable [email or web address] Stuart Saunders MD Unavailable [phone] Glenna Granados EMULSION OPERATOR Unavailable [phone] Rachana Otto MD Primary Care Provider [phone] Rachana Otto MD Primary Care Provider + [phone] Ibis Wilson RN Unavailable Luisa Vega Unavailable [phone] Moni Argueta RN Unavailable [phone] Pcp, Unknown Primary Care Provider UnavailSoco Hodge EMULSION OPERATOR Primary Care Provider [phone] Reason for Referral * MRI/CAT Scan - Closed Specialty Diagnoses / Procedures Referred By Mike quesada Referred To Contact Radiology Diagnoses Sarcoidosis Procedures CT Chest Man Michelle MD Phone: tel: fax: [email or web address] Referral ID Status Reason Start Date Expiration Date Visits Re quested Visits Authorized [id number] Closed 09/04/2018 09/05/2019 1 1 Encounter Details Date Type Department Care Team (Latest Contact Info) Description 09/03/2018 Transcribe Orders Virtual Department [address] [place] [address] Man Michelle MD [address] [place] [address], [address] [address] [email or web address] Sarcoidosis (Primary Dx) Social History Tobacco [...] st Contact Info) Description 02/17/2025 Procedure Pass [address] [address] 03/17/2025 1:00 PM EST Infusion [facility] 32 [facility], 9th Floor, [address] [place] [address] Nico Patel MD [address] [facility] [address], [place] [address] [email or web address] 03/17/2025 2:00 PM EST Office Visit [facility] [address] [facility], 9th Floor, [address] [place] [address] Krysta Villagomez FNP 32 [facility] [address] 9 [place] [address] [email or web address] 10/19/2025 12:30 PM EDT Appointment [address] [address] Soco Alexis, EMULSION OPERATOR 230 [place] [address] documented as of this encounter Results * CT CHEST WITHOUT CONTRAST (09/10/2018 9:27 AM EDT) Anatomical Region Laterality Modality Chest Computed Tomogra phy 09/10/2018 10:2 4 AM EDT Impressions 09/10/2018 10:[address] appearance of the chest. No manifestations of sarcoidosis nor other pathology. TOTAL CTDIvol: 8.0 mGy POS - [id number] Narrative 09/10/2018 10:39 AM EDT Automated Exposure [...] pathology. TOTAL CTDIvol: 8.0 mGy POS - [id number] Man Michelle MD IM CT CHEST Final Result documented in this [...] documented as of this encounter Care Teams Bronze Plater Relationship Specialty Start Date End Date Soco Alexis NP PCP - General Family Medicine 03/02/17 02/24/20 Rachana Otto MD [address] [place] [address] [email or web address] PCP - General Family Medicine 02/25/20 01/25/22 Soco Alexis NP PCP - General Family Medicine 01/26/22 03/13/23 Rachana Otto MD [address] [place] [address] [email or web address] PCP - General Family Medicine 03/14/23 05/30/23 Rachana Otto MD [address] [place] [phone] [email or web address] PCP - General Family Medicine 05/31/23 10/20/24 Pcp, Unknown PCP - General 11/11/24 12/01/24 Soco Alexis, EMULSION OPERATOR [address] [place] [address] PCP - General Nurse Practitioner 12/02/24 Soco Alexis, EMULSION OPERATOR 03/02/17 12/01/24 Paolo Collazo MD 70 [place] [address] [email or web address] Insurance Assigned Provider 06/06/19 08/13/19 Paco Jean MD, MPH 70 [place] [address] [email or web address] Insurance Assigned Provider 03/12/22 07/15/22 Guru Glynn MD [address] [place] [address] [address] [place] [address] [email or web address] Primary Oncologist Medical Oncology 01/24/22 05/09/23 Keily Maldonado CNP [address] [place] [address] [email or web address] Nurse Practitioner Medical Oncology 02/16/22 Cassi Carpenter PA-C [address] [place] [address] [email or web address] Physician Parts Interpreter Medical Oncology 03/22/22 08/14/24 Azra South RN [address] [place] [address] [email or web address] PHCM Software Engineer Web Services 05/09/22 04/08/24 Nico Patel MD [address] [place] [address] [email or web address] Primary Oncologist Hematology 07/13/22 Paco Jean MD, MPH [address] [place] [address] [email or web address] Insurance Assigned Provider 09/09/22 01/13/23 Ro Hardin LCSW [address] [place] [address] [email or web address] [facility] Learning And Development Associate 12/01/22 12/11/22 Myranda Lloyd [address] [place] [address] [email or web address] PHC Community Ammunition Assembly Laborer 01/16/23 01/17/23 Stuart Saunders MD [address] [place] [address] [email or web address] Primary Oncologist Medical Oncology 01/22/23 Glenna Granados, EMULSION OPERATOR 30 [place] [address] [email or web address] Nurse Practitioner Medical Oncology 03/12/23 08/14/24 Ibis Wilson, OLIVIA [address] [place] [phone] Primary Infusion Nurse 08/14/23 Luisa Vega 100 [place] [address] Music Therapist 07/25/24 Moni Argueta RN 30 [place] [address] [email or web address] Nurse Navigator 08/15/24 documented as of this encounter Additional Source Comments The information contained in this document represents components of the legal health record. It is not the complete legal health record.[facility]
--- OUTSIDE RECORDS SUMMARY | 2025-02-26 16:25 | XMS_ITS | Encounter Summary ---
Author Organization [facility] Address [address] [place] [address] Phone Care Team Providers Care Ladler Name Role Phone Soco Alexis PRODUCT DEVELOPMENT SCIENTIST Unavailable [phone] Rachana Otto MD Primary Care Provider [phone] Paco Jean MD, MPH Unavailable Guru Glynn MD Unavailable Soco Alexis PRODUCT DEVELOPMENT SCIENTIST Primary Care Provider Keily Maldonado SERVICE ESTABLISHMENT ATTENDANT Unavailable Cassi CarpenterC Unavailable dylan Azra South RN Unavailable Nico Patel MD Unavailable Paco Jean MD, MPH Unavailable Ro HardinW Unavailable [email or web address] Myranda Lloyd Unavailable [email or web address] Stuart Saunders MD Unavailable [phone] Granados, Glenna B PRODUCT DEVELOPMENT SCIENTIST Unavailable [phone] Rachana Otto MD Primary Care Provider [phone] Rachana Otto MD Primary Care Provider [phone] Ibis Wilson RN Unavailable Luisa Vega Unavailable [phone] Moni Argueta RN Unavailable [phone] Pcp, Unknown Primary Care Provider Unavailabl e Soco Alexis PRODUCT DEVELOPMENT SCIENTIST Primary Care Provider [phone] Encounter Details Date Type Department Care Team (Late Contact Info) Description 12/08/2021 Transcribe Orders Virtual Department 30 [place] [address] Soco Alexis, PRODUCT DEVELOPMENT SCIENTIST 230 [place] [address] Social History Tobacco Use Types Packs/Day Years [...] (Late Contact Info) Description 02/17/2025 Procedure Pass [facility] 30 [place] [address] 03/17/2025 1:00 PM EST Infusion [facility] 32 [facility], 9th Floor, [address] [place] [address] Nico Patel MD 55 [facility] [address] [place] [address] 03/17/2025 2:00 PM EST Office Visit [facility] 32 [facility], 9th Floor, [address] [place] [address] Krysta Villagomez FNP 32 [facility] [address] 9 [place] [address] [email or web address] 10/19/2025 12:30 PM EDT Appointment [facility] 30 [place] [address] Soco Alexis NP 230 [place] [address] documented as of this encounter Visit Diagnoses [...] documented as of this encounter Care Teams Ladler Relationship Specialty Start Date End Date Rachana Otto MD [email or web address] PCP - General Family Medicine 02/25/20 01/25/22 Soco Alexis PRODUCT DEVELOPMENT SCIENTIST PCP - General Family Medicine 01/26/22 03/13/23 Rachana Otto MD [address] [place] [address] [email or web address] PCP - General Family Medicine 03/14/23 05/30/23 Rachana Otto MD [address] [place] [phone] [email or web address] PCP - General Family Medicine 05/31/23 10/20/24 Pcp, Unknown PCP - General 11/11/24 12/01/24 Soco Alexis, PRODUCT DEVELOPMENT SCIENTIST [address] [place] [address] PCP - General Nurse Practitioner 12/02/24 Soco Alexis, PRODUCT DEVELOPMENT SCIENTIST 03/02/17 12/01/24 Paco Jean MD, MPH [address] [place] [address] [email or web address] Insurance Assigned Provider 03/12/22 07/15/22 Guru Glynn MD [address] [place] [address] [address] [place] [address] [email or web address] Primary Oncologist Medical Oncology 01/24/22 05/09/23 Keily Maldonado CNP [address] [place] [address] [email or web address] Nurse Practitioner Medical Oncology 02/16/22 Cassi Carpenter PA-C [address] [place] [address] [email or web address] Physician Doorperson Medical Oncology 03/22/22 08/14/24 Azra South, OLIVIA [address] [place] [address] [email or web address] PHCM Section Supervisor 05/09/22 04/08/24 Nico Patel MD [address] [place] [address] 9[place], [place] [address] [email or web address] Primary Oncologist Hematology 07/13/22 Paco Jean MD, MPH [address] [place] [address] [email or web address] Insurance Assigned Provider 09/09/22 01/13/23 Ro Hardin LCSW 10 [place], [place] [email or web address] PHCM Client Program Manager 12/01/22 12/11/22 Myranda Lloyd 10 [place], [place] [email or web address] PHCM Community Director Of Player Personnel 01/16/23 01/17/23 Stuart Saunders MD [address] [place] [address] Primary Oncologist Medical Oncology 01/22/23 Glenna Granados NP [address] [place] [address] Nurse Practitioner Medical Oncology 03/12/23 08/14/24 Ibis Wilson RN [address] [place] [phone] Primary Infusion Nurse 08/14/23 Luisa Vega [address] [place] [phone] Music Therapist 07/25/24 Moni Argueta RN [address] [place] [phone] [email or web address] Nurse Navigator 08/15/24 documented as of this encounter Additional Source Comments The information contained in this document represents components of the legal health record. It is not the complete legal health record.[facility]
--- OUTSIDE RECORDS SUMMARY | 2025-02-26 16:26 | XMS_ITS | Encounter Summary ---
Author Organization [facility] Address [address] [place] [address] Phone Care Team Providers Care Supplemental Manager Name Role Phone Keily Maldonado DIRECTOR OF RECRUITING Unavailable Nico Patel MD Unavailable [phone] Stuart Saunders MD Unavailable [phone] Ibis Wilson RN Unavailable Luisa Vega Unavailable [phone] Moni Argueta RN Unavailable [phone] Soco Alexis NP Primary Care Provider [phone] Encounter Details Date Type Department Care Team (Late st Contact Info) Description 12/17/2024 Procedure Pass [facility] DEPT 55 [facility], 4th [place] [address] Social History Tobacco Use Types Packs/Day Years [...] st Contact Info) Description 02/17/2025 Procedure Pass [address] [address] 03/17/2025 1:00 PM EST Infusion [facility] 32 [facility], 9th Floor, [address] [place] [address] Nico Patel MD [address] [place] [address] [email or web address] 03/17/2025 2:00 PM EST Office Visit [facility] 32 [facility], 9th Floor, [address] [place] [address] Krysta Villagomez FNP 32 [facility] [address] 9 [place] [address] [email or web address] 10/19/2025 12:30 PM EDT Appointment [address] [address] Soco Alexis NP 230 [place] [address] documented as of this encounter Visit Diagnoses Not on filedocumented in this encounter Additional Health Concerns Assessment Noted Time PHQ-2 Depression Total Score: 2 05/17/19 23 10:19 AM EST documented as of this encounter Care Teams Supplemental Manager Relationship Specialty Start Date End Date Soco Alexis NP 230 [place] [address] PCP - General Nurse Practitioner 12/02/24 Keily Maldonaod CNP 30 [place] [address] Nurse Practitioner Medical Oncology 02/16/22 Nico Patel MD [address] [place] [address] [place] [address] [email or web address] Primary Oncologist Hematology 07/13/22 Stuart Saunders MD [address] [place] [address] [email or web address] Primary Oncologist Medical Oncology 01/22/23 Ibis Wilson RN [address] [place] [phone] Primary Infusion Nurse 08/14/23 Luisa Vega [address] [place] [phone] Music Therapist 07/25/24 Moni Argueta RN [address] [place] [address] Nurse Navigator 08/15/24 documented as of this encounter Additional Source Comments The information contained in this document represents components of the legal health record. It is not the complete legal health record.[facility]
--- OUTSIDE RECORDS SUMMARY | 2025-02-26 16:26 | XMS_ITS | Encounter Summary ---
Author Organization [facility] Address [address] [place] [address] Phone Care Team Providers Care Scheduling Clerk Name Role Phone Soco Alexis FROZEN FOOD SELECTOR Unavailable [phone] Rachana Otto MD Primary Care Provider [phone] Paco Jean MD, MPH Unavailable Guru Glynn MD Unavailable Soco Alexis FROZEN FOOD SELECTOR Primary Care Provider Keily Maldonado HEAD [employer] Unavailable Cassi CarpenterC Unavailable dylan Azra South RN Unavailable Nico Patel MD Unavailable [phone] Paco Jean MD, MPH Unavailable Ro HardinW Unavailable [email or web address] Myranda Lloyd Unavailable [email or web address] Stuart Saunders MD Unavailable [phone] Granados, Gelnna B FROZEN FOOD SELECTOR Unavailable [phone] Rachana Otto MD Primary Care Provider [phone] Rachana Otto MD Primary Care Provider [phone] Ibis Wilson RN Unavailable Luisa Vega Unavailable [phone] Moni Argueta RN Unavailable [phone] Pcp, Unknown Primary Care Provider Unavailtoo corea JaneneStephanie chavezkimberlyn Baldwin FROZEN FOOD SELECTOR Primary Care Provider [phone] Reason for Referral * MRI/CAT Scan - Closed Specialty Diagnoses / Procedures Referred By Contac t Referred To Contact Radiology Diagnoses Pain in left ankle and joints of left foot Procedures MRI Ankle (Left) CHG MRI LOWER EXTREM JT, W/O CONTRAST Shashi Zabala MD Phone: tel: fax: [email or web address] Referral ID Status Reason Start Date Expiration Date Visits Re quested Visits Authorized [id number] Closed 01/27/2021 03/28/2021 1 1 Encounter Details Date Type Department Care Team (Latest Contact Info) Description 01/27/2021 Transcribe Orders Virtual Department [address] [place] [address] Shashi Zabala MD [address] [place] [address] [email or web address] Pain in left ankle and joints of [...] Contact Info) Description 02/17/2025 Procedure Pass [address] [address] 03/17/2025 1:00 PM EST Infusion [facility] 32 [facility], 9th Floor, [address] [place] [address] Nico Patel MD [address] [facility] [address] [place] [address] [email or web address] 03/17/2025 2:00 PM EST Office Visit [facility] 32 [facility], 9th Floor, [address] [place] [address] Krysta Villagomez FNP 32 [facility] [address] [place] [address] [email or web address] 10/19/2025 12:30 PM EDT Appointment [address] [address] Soco Alexis, FROZEN FOOD SELECTOR [address] [place] [address] documented as of this encounter Results * [...] internal derangementregionally identified to account for pain. us Shashi Zabala MD IMG MR EXTREMITY Final [...] documented as of this encounter Care Teams Scheduling Clerk Relationship Specialty Start Date End Date Rachana Otto MD [email or web address] PCP - General Family Medicine 02/25/20 01/25/22 Soco Alexis FROZEN FOOD SELECTOR PCP - General Family Medicine 01/26/22 03/13/23 Rachana Otto MD 30 [place] [address] [email or web address] PCP - General Family Medicine 03/14/23 05/30/23 Rachana Otto MD [address] [place] [phone] [email or web address] PCP - General Family Medicine 05/31/23 10/20/24 Pcp, Unknown PCP - General 11/11/24 12/01/24 Soco Alexis FROZEN FOOD SELECTOR [address] [place] [address] PCP - General Nurse Practitioner 12/02/24 Scoo Alexis FROZEN FOOD SELECTOR 03/02/17 12/01/24 Paco Jean MD, MPH 70 [place], [place] [phone] [email or web address] Insurance Assigned Provider 03/12/22 07/15/22 Guru Glynn MD [address] [place] [address] [address] [place] [address] [email or web address] Primary Oncologist Medical Oncology 01/24/22 05/09/23 Keily Maldonado CNP 30 [place] [address] Nurse Practitioner Medical Oncology 02/16/22 Cassi Carpenter PA-C [address] [place] [address] [email or web address] Physician Shirt Line Operator Medical Oncology 03/22/22 08/14/24 Azra South RN [address] [place] [address] [email or web address] PHCM Fitter/Welder 05/09/22 04/08/24 Nico Patel MD [address] [place] [address] [email or web address] Primary Oncologist Hematology 07/13/22 Paco Jean MD, MPH [address] [place] [address] Insurance Assigned Provider 09/09/22 01/13/23 Ro Hardin LCSW [address] [place] [address] [email or web address] PHCM Architecture Technician 12/01/22 12/11/22 Myranda Lloyd [address] [place] [address] [email or web address] PHCM Community Volunteer Services Manager 01/16/23 01/17/23 Stuart Saunders MD [address] [place] [address] [email or web address] Primary Oncologist Medical Oncology 01/22/23 Glenna Granados NP [address] [place] [address] Nurse Practitioner Medical Oncology 03/12/23 08/14/24 Ibis Wilson RN [address] [place] [phone] [email or web address] Primary Infusion Nurse 08/14/23 Luisa Vega [address] [place] [phone] Music Therapist 07/25/24 Moni Argueta RN [address] [place] [address] [email or web address] Nurse Navigator 08/15/24 documented as of this encounter Additional Source Comments The information contained in this document represents components of the legal health record. It is not the complete legal health record.[facility]
--- OUTSIDE RECORDS SUMMARY | 2025-02-26 16:26 | XMS_ITS | Encounter Summary ---
Author Organization [facility] Address [address] [place] [address] Phone Care Team Providers Care Cleat Feeder Name Role Phone Soco Alexis HVAC DESIGN MECHANICAL ENGINEER Unavailable [phone] Keily Maldonado AUTOMATION TESTER Unavailable Nico Patel MD Unavailable Stuart Saunders MD Unavailable [phone] Rachana Otto MD Primary Care Provider Ibis Wilson RN Unavailable Luisa Vega Unavailable [phone] Moni Argueta RN Unavailable Pcp, Unknown Primary Care Provider Unavailabl e Soco Alexis HVAC DESIGN MECHANICAL ENGINEER Primary Care Provider Encounter Details Date Type Department Care Team (Late st Contact Info) Description 10/14/2024 Procedure Pass [facility] [place] [address] [facility], 6th [place] [address] Social History Tobacco Use Types Packs/Day Years [...] 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 file documented as of this encounter Plan of Treatment Upcoming Encounters Date Type Department Care Team (Late st Contact Info) Description 02/17/2025 Procedure Pass [address] [address] 03/17/2025 1:00 PM EST Infusion [facility] 32 [facility], 9th Floor, [address] [place] [address] Nico Patel MD 55 [facility] [address] [address] [email or web address] 03/17/2025 2:00 PM EST Office Visit [facility] 32 [facility], 9th Floor, [address] [place] [address] Krysta Villagomez FNP 32 [facility] [address] [place] [address] [email or web address] 10/19/2025 12:30 PM EDT Appointment [address] [address] Soco Alexis NP 230 [place] [address] documented as of this encounter Visit Diagnoses [...] documented as of this encounter Care Teams Cleat Feeder Relationship Specialty Start Date End Date Rachana Otto MD [address] [place] [address] [place] [address] [email or web address] PCP - General Family Medicine 05/31/23 10/20/24 Pcp, Unknown PCP - General 11/11/24 12/01/24 Soco Alexis NP [address] [place] [address] PCP - General Nurse Practitioner 12/02/24 Sooc Alexis HVAC DESIGN MECHANICAL ENGINEER 03/02/17 12/01/24 Keily Maldonado CNP [address] [place] [address] [email or web address] Nurse Practitioner Medical Oncology 02/16/22 Nico Patel MD [address] [place] [address] [email or web address] Primary Oncologist Hematology 07/13/22 Stuart Saunders MD 30 [place] [address] Primary Oncologist Medical Oncology 01/22/23 Ibis Wilson, RN [address] [place] [phone] Primary Infusion Nurse 08/14/23 Luisa Vega [address] [place] [phone] Music Therapist 07/25/24 Moni Argueta RN 30 [place] [address] Nurse Navigator 08/15/24 documented as of this encounter Additional Source Comments The information contained in this document represents components of the legal health record. It is not the complete legal health record.[facility]
--- OUTSIDE RECORDS SUMMARY | 2025-02-26 16:26 | XMS_ITS | Encounter Summary ---
Author Organization [facility] Address [address] [place] [address] Phone Care Team Providers Care Proof Tester Name Role Phone Soco Alexis PLASTERER STUCCO Unavailable Rachana Otto MD Primary Care Provider [phone] Paco Jean MD, MPH Unavailable Guru Glynn MD Unavailable Soco Alexis PLASTERER STUCCO Primary Care Provider Keily Maldonado INFRASTRUCTURE ENGINEER Unavailable Cassi CarpenterC Unavailable dylan Azra South RN Unavailable Nico Patel MD Unavailable Paco Jean MD, MPH Unavailable Ro HardinW Unavailable abdirashid Myrnada Lloyd Unavailable [email or web address] Stuart Saunders MD Unavailable [phone] Granados, Glenna B PLASTERER STUCCO Unavailable [phone] Rachana Otto MD Primary Care Provider [phone] Rachana Otto MD Primary Care Provider [phone] Ibis Wilson RN Unavailable AveryLuisa burkettan Unavailable [phone] Moni Argueta RN Unavailable [phone] Pcp, Unknown Primary Care Provider UnavailSoco Hodge PLASTERER STUCCO Primary Care Provider [phone] Encounter Details Date Type Department Care Team (Late st Contact Info) Description 01/17/2022 Procedure Pass OR Admitting Dept - [facility] Department [address] [place] [address] Social History Tobacco Use Types Packs/Day Years [...] (Late Contact Info) Description 02/17/2025 Procedure Pass [facility] 30 [place] [address] 03/17/2025 1:00 PM EST Infusion [facility] 32 [facility], 9th Floor, [address] [place] [address] Nico Patel MD [address] [place] [address] [address] [place] [address] [email or web address] 03/17/2025 2:00 PM EST Office Visit [facility] 32 [facility], 9th Floor, [address] [place] [address] Krysta Villagomez, DISTRICT MANAGER IN TRAINING 32 [facility] [address] [place] [address] [email or web address] 10/19/2025 12:30 PM EDT Appointment [facility] [address] [place] [address] Soco Alexis, PLASTERER STUCCO 230 [place] [address] documented as of this encounter Visit Diagnoses [...] documented as of this encounter Care Teams Proof Tester Relationship Specialty Start Date End Date Rachana Otto MD [email or web address] PCP - General Family Medicine 02/25/20 01/25/22 Soco Alexis PLASTERER STUCCO PCP - General Family Medicine 01/26/22 03/13/23 Rachana Otto MD [address] [place] [address] [email or web address] PCP - General Family Medicine 03/14/23 05/30/23 Rachana Otto MD [address] [place] [phone] [email or web address] PCP - General Family Medicine 05/31/23 10/20/24 Pcp, Unknown PCP - General 11/11/24 12/01/24 Soco Alexis PLASTERER STUCCO [address] [place] [address] PCP - General Nurse Practitioner 12/02/24 Soco Alexis PLASTERER STUCCO 03/02/17 12/01/24 Paco Jean MD, MPH 70 [place] [address] Insurance Assigned Provider 03/12/22 07/15/22 Guru Glynn MD [address] [place] [address] [address] [place] [address] [email or web address] Primary Oncologist Medical Oncology 01/24/22 05/09/23 Keily Maldonado CNP 30 [place] [address] [email or web address] Nurse Practitioner Medical Oncology 02/16/22 Cassi Carpenter PA-C [address] [place] [address] [email or web address] Physician Heel Builder Machine Medical Oncology 03/22/22 08/14/24 Azra South RN [address] [place] [address] [email or web address] PHCM Smokehouse Operator 05/09/22 04/08/24 Nico Patel MD [address] [place] [address] [address], [place] [address] [email or web address] Primary Oncologist Hematology 07/13/22 Paco Jean MD, MPH 70 [place] [address] [email or web address] Insurance Assigned Provider 09/09/22 01/13/23 Ro Hardin LCSW [address] [place] [address] [email or web address] PHCM Aoc Plans Intelligence Officer 12/01/22 12/11/22 Myranda Lloyd 10 [place] [address] [email or web address] PHCM Community Seal Extrusion Operator 01/16/23 01/17/23 Stuart Saunders MD [address] [place] [address] Primary Oncologist Medical Oncology 01/22/23 Glenna rGanados NP [address] [place] [address] Nurse Practitioner Medical Oncology 03/12/23 08/14/24 Ibis Wilson RN [address] [place] [phone] Primary Infusion Nurse 08/14/23 Luisa Vega [address] [place] [phone] Music Therapist 07/25/24 Moni Argueta, OLIVIA [address] [place] [phone] [email or web address] Nurse Navigator 08/15/24 documented as of this encounter Additional Source Comments The information contained in this document represents components of the legal health record. It is not the complete legal health record.[facility]
--- OUTSIDE RECORDS SUMMARY | 2025-02-26 16:26 | XMS_ITS | Encounter Summary ---
Author Organization [facility] Address [address] [place] [address] Phone Care Team Providers Care Scale Shooter Name Role Phone Soco Alexis MANUFACTURING PLANNER Unavailable [phone] Keily Maldonado APARTMENT COORDINATOR Unavailable Nico Patel MD Unavailable Stuart Saunders MD Unavailable [phone] Ibis Wilson RN Unavailable Luisa Vega Unavailable [phone] Moni Argueta RN Unavailable Pcp, Unknown Primary Care Provider Unavailabl Soco Osullivan MANUFACTURING PLANNER Primary Care Provider [phone] Reason for Referral * MRI/CAT Scan - Closed Specialty Diagnoses / Procedures Referred By Mike t Referred To Contact Radiology Diagnoses Spondylosis without myelopathy or radiculopathy, lumbar region Procedures MRI Lumbar Spine Marilu Andrew NP [address] [place] [phone] Phone: tel: fax: mailto: m Referral ID Status Reason Start Date Expiration Date Visits Re quested Visits Authorized [id number] Closed 11/18/2024 11/18/2025 1 1 Encounter Details Date Type Department Care Team (Latest Contact Info) Description 11/18/2024 Transcribe Orders Virtual Department [address] [place] [address] Marilu Andrew NP [address] [place] [phone] [email or web address] Spondylosis without myelopathy or radiculopathy, lumbar region [...] 02/17/2025 Procedure Pass [facility] 30 [place] [address] 03/17/2025 1:00 PM EST Infusion [facility] 32 [facility], 9th Floor, [address] [place] [address] Nico Patel MD [address] [place] [address] [address] [place] [address] 03/17/2025 2:00 PM EST Office Visit [facility] 32 [facility], 9th Floor, [address] [place] [address] Krysta Villagomez FNP 32 [facility] [address] [place] [address] [email or web address] 10/19/2025 12:30 PM EDT Appointment [facility] 30 [place] [address] Soco Alexis NP 230 [place] [address] documented as of this encounter Results * [...] STIR sequence. Discs and Endplates: There is fjal-[id number] loss of disc height and signal at [...] the STIRsequence. Discs and Endplates: There is tgph-ur-ltwbmddn loss of disc height andsignal at L4-L5. [...] canal stenosis or high-grade foramina stenosis. Marilu Brito Lorrie MANUFACTURING PLANNER IMG MR XSPECIALTY Final Result documented in this encounter Visit Diagnoses Diagnosis Spondylosis without myelopathy or radiculopathy, lumbar region- Primary Spondylosis without myelopathy or radiculopathy, lumbar region documented in this encounter Additional Health Concerns Assessment Noted Time PHQ-2 Depression Total Score: 2 05/17/19 23 10:19 AM EST documented as of this encounter Care Teams Scale Shooter Relationship Specialty Start Date End Date Pcp, Unknown PCP - General 11/11/24 12/01/24 Soco Alexis, MANUFACTURING PLANNER [address] [place] [address] PCP - General Nurse Practitioner 12/02/24 Soco Alexis, MANUFACTURING PLANNER 03/02/17 12/01/24 Keily Maldonado CNP [address] [place] [address] [email or web address] Nurse Practitioner Medical Oncology 02/16/22 Nico Patel MD [address] [place] [address] [email or web address] Primary Oncologist Hematology 07/13/22 Stuart Saunders MD [address] [place] [address] [email or web address] Primary Oncologist Medical Oncology 01/22/23 Ibis Wilson, RN [address] [place] [phone] [email or web address] Primary Infusion Nurse 08/14/23 Luisa Vega [address] [place] [phone] Music Therapist 07/25/24 Moni Argueta RN [address] [place] [address] [email or web address] Nurse Navigator 08/15/24 documented as of this encounter Additional Source Comments The information contained in this document represents components of the legal health record. It is not the complete legal health record.[facility]
--- OUTSIDE RECORDS SUMMARY | 2025-02-26 16:26 | XMS_ITS | Encounter Summary ---
Author Organization [facility] Address [address] [place] [address] Phone Care Team Providers Care Vegetable Worker Name Role Phone Soco Alexis SHRIMP PEELING MACHINE TENDER Unavailable [phone] Keily Maldonado OPERATING ROOM ASSISTANT Unavailable Nico Patel MD Unavailable [phone] Stuart Saunders MD Unavailable [phone] Ibis Wilson RN Unavailable Luisa Vega Unavailable [phone] Moni Argueta RN Unavailable Pcp, Unknown Primary Care Provider Unavailabl e Soco Alexis SHRIMP PEELING MACHINE TENDER Primary Care Provider [phone] Encounter Details Date Type Department Care Team (Late st Contact Info) Description 11/18/2024 Procedure Pass [address] [address] Social History Tobacco Use Types Packs/Day Years [...] st Contact Info) Description 02/17/2025 Procedure Pass [address] [address] 03/17/2025 1:00 PM EST Infusion [facility] 32 [facility], 9th Floor, [address] [place] [address] Nico Patel MD 55 [facility] [place] [address] [email or web address] 03/17/2025 2:00 PM EST Office Visit [facility] 32 [facility], 9th Floor, [address] [place] [address] Krysta Villagomez FNP 32 [facility] [address] [place] [address] [email or web address] 10/19/2025 12:30 PM EDT Appointment [address] [address] Soco Alexis NP 230 [place] [address] documented as of this encounter Visit Diagnoses Not on filedocumented in this encounter Additional Health Concerns Assessment Noted Time PHQ-2 Depression Total Score: 2 05/17/19 23 10:19 AM EST documented as of this encounter Care Teams Vegetable Worker Relationship Specialty Start Date End Date Pcp, Unknown PCP - General 11/11/24 12/01/24 Soco Alexis, SHRIMP PEELING MACHINE TENDER 230 [place] [address] PCP - General Nurse Practitioner 12/02/24 Soco Alexis, SHRIMP PEELING MACHINE TENDER 03/02/17 12/01/24 Keily Maldonado CNP [address] [place] [address] [email or web address] Nurse Practitioner Medical Oncology 02/16/22 Nico Patel MD [address] [place] [address] Primary Oncologist Hematology 07/13/22 Stuart Saunders MD [address] [place] [address] Primary Oncologist Medical Oncology 01/22/23 Ibis Wilson, OLIVIA [address] [place] [phone] Primary Infusion Nurse 08/14/23 Luisa Vega [address] [place] [phone] Music Therapist 07/25/24 Moni Argueta RN [address] [place] [address] [email or web address] Nurse Navigator 08/15/24 documented as of this encounter Additional Source Comments The information contained in this document represents components of the legal health record. It is not the complete legal health record.[facility]
--- OUTSIDE RECORDS SUMMARY | 2025-02-26 16:26 | XMS_ITS | Encounter Summary ---
Author Organization [facility] Address [address] [place] [address] Phone Care Team Providers Care Display Card Writer Name Role Phone Soco Alexis CREATIVE LEAD Unavailable [phone] Rachana Otto MD Primary Care Provider [phone] Paco Jean MD, MPH Unavailable Guru Glynn MD Unavailable Soco Alexis CREATIVE LEAD Primary Care Provider Keily Maldonado STOCK WORKER Unavailable Cassi CarpenterC Unavailable dylan Azra South RN Unavailable Nico Patel MD Unavailable Paco Jean MD, MPH Unavailable Ro HardinW Unavailable [email or web address] Myranda Lloyd Unavailable [email or web address] Stuart Saunders MD Unavailable [phone] Granados, Glenna B CREATIVE LEAD Unavailable [phone] Rachana Otto MD Primary Care Provider [phone] Rachana Otto MD Primary Care Provider [phone] Ibis [place] RN Unavailable Luisa Vega Unavailable [phone] Moni Argueta RN Unavailable [phone] Pcp, Unknown Primary Care Provider Unavailabl Soco Osullivan CREATIVE LEAD Primary Care Provider [phone] Encounter Details Date Type Department Care Team (Late st Contact Info) Description 07/02/2020 Procedure Pass Echo Lab [address] [place] [address] Social History Tobacco Use Types Packs/Day Years [...] st Contact Info) Description 02/17/2025 Procedure Pass [address] [address] 03/17/2025 1:00 PM EST Infusion [facility] [address] [facility], 9th Floor, [address] [place] [address] Nico Patel MD [address] [facility] [address] [place] [address] [email or web address] 03/17/2025 2:00 PM EST Office Visit [facility] [address] [facility], 9th Floor, [address] [place] [address] Krysta Villagomez, ADULT NEUROLOGIST [address] [facility] [address] [place] [address] [email or web address] 10/19/2025 12:30 PM EDT Appointment [facility] [address] [place] [address] Soco Alexis, CREATIVE LEAD [address] [place] [address] documented as of this encounter Visit Diagnoses [...] documented as of this encounter Care Teams Display Card Writer Relationship Specialty Start Date End Date Rachana Otto MD [email or web address] PCP - General Family Medicine 02/25/20 01/25/22 Soco Alexis CREATIVE LEAD PCP - General Family Medicine 01/26/22 03/13/23 Rachana Otto MD [address] [place] [address] [email or web address] PCP - General Family Medicine 03/14/23 05/30/23 Rachana Otto MD [address] [place] [address] [place] [address] [email or web address] PCP - General Family Medicine 05/31/23 10/20/24 Pcp, Unknown PCP - General 11/11/24 12/01/24 Soco Alexis, CREATIVE LEAD [address] [place] [address] PCP - General Nurse Practitioner 12/02/24 Soco Alexis, CREATIVE LEAD 03/02/17 12/01/24 Paco Jean MD, MPH [address] [place] [address] [email or web address] Insurance Assigned Provider 03/12/22 07/15/22 Guru Glynn MD [address] [place] [address] [address] [place] [address] [email or web address] Primary Oncologist Medical Oncology 01/24/22 05/09/23 Keily Maldonado CNP [address] [place] [address] [email or web address] Nurse Practitioner Medical Oncology 02/16/22 Cassi Carpenter PA-C [address] [place] [address] [email or web address] Physician Cash On Delivery Clerk Medical Oncology 03/22/22 08/14/24 Azra South, OLIVIA [address] [place] [address] [email or web address] PHCM Raised Printer 05/09/22 04/08/24 Nico Patel MD [address] [place] [address] [email or web address] Primary Oncologist Hematology 07/13/22 Paco Jean MD, MPH [address] [place] [address] [email or web address] Insurance Assigned Provider 09/09/22 01/13/23 Ro Hardin LCSW [address] [place] [address] [email or web address] PHCM Perforator Typist 12/01/22 12/11/22 Myranda Lloyd [address] [place] [address] [email or web address] PHCM Community Mark Up Designer 01/16/23 01/17/23 Stuart Saunders MD [address] [place] [phone] Primary Oncologist Medical Oncology 01/22/23 Glenna Granados NP [address] [place] [address] Nurse Practitioner Medical Oncology 03/12/23 08/14/24 Ibis [place] RN [address] [place] [phone] Primary Infusion Nurse 08/14/23 Luisa Vega [address] [place] [phone] Music Therapist 07/25/24 Moni Argueta, OLIVIA [address] [place] [address] [phone] [email or web address] Nurse Navigator 08/15/24 documented as of this encounter Additional Source Comments The information contained in this document represents components of the legal health record. It is not the complete legal health record.[facility]
--- OUTSIDE RECORDS SUMMARY | 2025-02-26 16:26 | XMS_ITS | Encounter Summary ---
Author Organization [facility] Address [address] [place] [address] Phone Care Team Providers Care Forest Products Gatherer Name Role Phone Soco Alexis URBAN DESIGN CONSULTANT Unavailable [phone] Rachana Otto MD Primary Care Provider [phone] Paco Jean MD, MPH Unavailable Guru Glynn MD Unavailable Soco Alexis URBAN DESIGN CONSULTANT Primary Care Provider Keily Maldonado RADIOTELEGRAPHER Unavailable Cassi CarpenterC Unavailable dylan Azra South RN Unavailable Nico Patel MD Unavailable Paco Jean MD, MPH Unavailable Ro HardinW Unavailable [email or web address] Myranda Lloyd Unavailable [email or web address] Stuart Saunders MD Unavailable [phone] Granados, Glenna B URBAN DESIGN CONSULTANT Unavailable [phone] Rachana Otto MD Primary Care Provider [phone] aRchana Otto MD Primary Care Provider [phone] Ibis [place] RN Unavailable Luisa Vega Unavailable [phone] Moni Argueta RN Unavailable [phone] Pcp, Unknown Primary Care Provider UnavailSoco Hodge URBAN DESIGN CONSULTANT Primary Care Provider [phone] Encounter Details Date Type Department Care Team (Late st Contact Info) Description 01/27/2021 Procedure Pass [address] [address] Social History Tobacco Use Types Packs/Day Years [...] Contact Info) Description 02/17/2025 Procedure Pass [address] [address] 03/17/2025 1:00 PM EST Infusion [facility] [address] [facility], 9th [address], [address] [place] [address] Nico Patel MD [address] [place] [address] [address] [place] [address] [email or web address] 03/17/2025 2:00 PM EST Office Visit [facility] [address] [facility], 9th [address], [address] [place] [address] Krysta Villagomez FNP [address] [facility] [address] [place] [address] 10/19/2025 12:30 PM EDT Appointment [facility] 30 [place] [address] Soco Alexis NP [address] [place] [address] documented as of this encounter Visit Diagnoses Not on filedocumented in this encounter Additional Health Concerns Infection Onset Date Last Indicated Resolved Time CoV-Risk 08/24/2021 08/24/2021 09/04/2021 1:22 AM EDT CoV-Risk 03/22/2022 03/22/2022 04/02/2022 3:50 AM EST CoV-Risk Comment:Neg covid 05/04/2022 05/04/2022 05/05/2022 5:[address] CoV-Risk Comment:Neg covid 05/23/2022 05/23/2022 05/24/2022 6:33 AM EST CoV-Risk 06/10/2022 06/10/2022 06/10/2022 10:2 1 PM [...] documented as of this encounter Care Teams Forest Products Gatherer Relationship Specialty Start Date End Date Rachana Otto MD [email or web address] PCP - General Family Medicine 02/25/20 01/25/22 Soco Alexis URBAN DESIGN CONSULTANT PCP - General Family Medicine 01/26/22 03/13/23 Rachana Otto MD [address] [place] [address] [email or web address] PCP - General Family Medicine 03/14/23 05/30/23 Rachana Otto MD [address] [place] [address] [place] [address] [email or web address] PCP - General Family Medicine 05/31/23 10/20/24 Pcp, Unknown PCP - General 11/11/24 12/01/24 Soco Alexis, URBAN DESIGN CONSULTANT [address] [place] [address] PCP - General Nurse Practitioner 12/02/24 Soco Alexis URBAN DESIGN CONSULTANT 03/02/17 12/01/24 Paco Jean MD, MPH [address] [place] [address] [email or web address] Insurance Assigned Provider 03/12/22 07/15/22 Guru Glynn MD [address] [place] [address] [address] [place] [address] [email or web address] Primary Oncologist Medical Oncology 01/24/22 05/09/23 Keily Maldonado CNP [address] [place] [address] [email or web address] Nurse Practitioner Medical Oncology 02/16/22 Cassi Carpenter PA-C [address] [place] [address] [email or web address] Physician Tectonophysicist Medical Oncology 03/22/22 08/14/24 Azra South, OLIVIA [address] [place] [address] [email or web address] PHCM Network Support Administrator 05/09/22 04/08/24 Nico Patel MD [address] [place] [address] [email or web address] Primary Oncologist Hematology 07/13/22 Paco Jean MD, MPH [address] [place] [address] [email or web address] Insurance Assigned Provider 09/09/22 01/13/23 Ro Hardin LCSW [address] [place], [place] PHCM Senior Loan Officer 12/01/22 12/11/22 Myranda Lloyd [address] [place], [place] [email or web address] PHCM Community Mental Health Consultant 01/16/23 01/17/23 Stuart Saunders MD [address] [place] [address] Primary Oncologist Medical Oncology 01/22/23 Glenna Granados NP [address] [place] [address] Nurse Practitioner Medical Oncology 03/12/23 08/14/24 Ibis [place] RN [address] [place] [phone] Primary Infusion Nurse 08/14/23 Luisa Vega [address] [place] [phone] Music Therapist 07/25/24 Moni Argueta RN [address] [place] [phone] [email or web address] Nurse Navigator 08/15/24 documented as of this encounter Additional Source Comments The information contained in this document represents components of the legal health record. It is not the complete legal health record.[facility]
== END 2025-02-26 13:35 | disposition home or self-care (01) ==
LOC: HO.PMC 13:02
PROVIDERS: PCP Nurse Practitioner Family; Visit Provider Anesthesiology
DX: M19.011 Primary osteoarthritis, right shoulder (principal); M19.012 Primary osteoarthritis, left shoulder; M87.9 Osteonecrosis, unspecified; G90.513 Complex regional pain syndrome I of upper limb, bilateral; G62.0 Drug-induced polyneuropathy; G89.4 Chronic pain syndrome; T45.1X5A Adverse effect of antineoplastic and immunosuppressive drugs, initial encounter; D89.813 Graft-versus-host disease, unspecified
CPT/HCPCS: 99203

== ENCOUNTER → 2025-02-26 13:51 | Outpatient (BNV) | payer MEDICARE, MEDICAID, SELFPAY | PROVIDERS: PCP Nurse Practitioner Family; Visit Provider Radiology Diagnostic Ultrasound | DX: M19.011 Primary osteoarthritis, right shoulder (principal) | CPT/HCPCS: 73030 ==

== ENCOUNTER 2025-03-12 10:59 | Outpatient (AMB) | payer MEDICARE, MEDICAID, SELFPAY ==
--- NOTE | 2025-03-12 11:06 | A.OFFVIS_ITS ---
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: No Accompanied by: Self / Same As Patient Allergies azithromycin Allergy (Mild, Verified 03/12/25 11:06) Unknown Cephalosporins Allergy (Mild, Verified 03/12/25 11:06) Unknown clindamycin Allergy (Mild, Verified 03/12/25 11:06) Unknown haloperidol Allergy (Mild, Verified 03/12/25 11:06) Unknown lincomycin Allergy (Mild, Verified 03/12/25 11:06) Unknown Penicillins Allergy (Mild, Verified 03/12/25 11:06) Unknown Quinolones Allergy (Mild, Verified 03/12/25 11:06) Unknown HPI Comments Details: Otilia is back in my office after she carefully read the brochure about [employer] spinal cord stimulator as well as search the Internet about the procedures she was offered last time. She was asking multiple questions about spinal cord stimulator in general and [employer] spinal cord stimulator in particular. She also reported that she has approval from psychologist who did recommend the procedure. The full approval letter will be available in the chart. I answered all the questions to the patient to her satisfaction. I will schedule the patient for a trial of [employer] cervical spinal cord stimulator. I will see this patient on the trial. Prior: very pleasant 44 years old female who presents in my office with complains on pain in multiple areas of her body but mostly pain in bilateral shoulders neuropathic pain in bilateral hands and pain in bilateral hips. She reports that she was diagnose with lymphoma in 2021, she was treated with chemotherapy which was not successful, after that she was treated with sequential 2. 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 She consider herself a cancer survivor. 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 She is on permanent disability she is unable to sleep normally, she can not do activities of daily living, she is able to take care of herself but she can not function normally. To treat her pain she tried Tylenol oxycodone and hydromorphone. None of those medications helped her pain is significant doses. She tried PT for the lower back pain and it was minimally effective to control her pain. PT for the lower extremities would be contraindicated because of the possibility of injury or fractures. She had shoulder injections in the past and those injections were minimally helpful for her. 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 She is receiving IVIG every month to prevent septic infections and yet she is suffering from sepsis every year. Surgical history significant only for bone marrow transplant. She denies smoking cigarettes she stopped smoking in 2022. Admits drinking alcohol once a week. She drinks coffee but not soda and she admits consuming cannabis. Review of Systems Const All systems reviewed & are unremarkable except as noted in HPI and below ENT Reports Normal hearing present Neuro Reports Normal hearing present, Denies Abnormal speech present, Denies confusion and Denies Sensory deficit (Neuro) Psych Denies confusion Physical Exam Vital Signs: Last Vital Signs Pulse 80 03/12/25 11:07 Resp 16 03/12/25 11:07 BP 129/81 03/12/25 11:07 Pulse Ox 97 03/12/25 11:07 Oxygen Delivery Method Room Air 03/12/25 11:07 BMI result Body Mass Index 39.4 Const General: no acute distress; No confusion Nutritional Appearance: obese morbidly obese Orientation/consciousness: patient oriented x3 and No confusion Eyes General: appearance normal, both eyes and all related structures Pupils: Equal, round and reactive pupils present EOM: EOMs intact bilaterally Neck Neck: Yes full ROM Chest Chest palpation & inspection: normal inspection of the chest Resp Effort & Inspection: normal respiratory effort, able to speak in complete sentences, normal respiratory pattern, no audible wheezes and no cough Cardio Jugular venous distension: no JVD GI Inspection: Yes normal to inspection Neuro General: patient oriented x3, gait normal and No confusion Cranial nerves: Yes CN's II-XII intact bilaterally, Yes Equal, round and reactive pupils present, Yes Normal hearing present and Yes Ability to bilaterally elevate shoulders present Speech: No Abnormal speech present Gait exam (Neuro): Normal gait present Motor exam (neuro): 5/5 motor strength present throughout Sensory Exam: No Sensory deficit (Neuro) Extrem General: No pedal edema Psych Speech and movement: Normal speech and movement present Affect: normal affect Attitude: cooperative Thought process: Normal thought process present Thought content: Normal thought content present Insight: Good insight present (Psych) Judgement: Good judgement present (Psych) Results Reviewed Results Reviewed: XAMINATION: X-ray bilateral shoulders CLINICAL INFORMATION: Primary osteoarthritis COMPARISON: None TECHNIQUE: Right shoulder 4 views. Left shoulder 4 views. FINDINGS: Right shoulder: No evidence of acute fracture, dislocation or suspicious osseous lesion. Glenohumeral joint space is maintained. Acromioclavicular articulation is maintained. No abnormal soft tissue calcification. Left shoulder: No evidence of acute fracture, dislocation or suspicious osseous lesion. No significant glenohumeral joint space narrowing. Acromioclavicular articulation is maintained. No abnormal soft tissue calcification. XR/XR Shoulder Donnie min 2V IMPRESSION: No radiographic evidence of acute osseous findings. Assessment & Plan Assessment & Plan (1) Osteoarthritis of shoulders, bilateral: Code(s): M19.011 - Primary osteoarthritis, right shoulder; M19.012 - Primary osteoarthritis, left shoulder Category: Medical (2) Osteonecrosis of shoulder region: Code(s): M87.9 - Osteonecrosis, unspecified Category: Medical (3) Complex regional pain syndrome i of upper limb, bilateral: Code(s): G90.513 - Complex regional pain syndrome I of upper limb, bilateral Category: Medical (4) Chemotherapy-induced neuropathy: Code(s): G62.0 - Drug-induced polyneuropathy; T45.1X5A - Adverse effect of antineoplastic and immunosuppressive drugs, initial encounter Category: Medical (5) Yfebc-fxkuad-kqhj disease: Code(s): D89.813 - Zlnli-egcnwl-szms disease, unspecified Category: Medical (6) Chronic pain syndrome: Code(s): G89.4 - Chronic pain syndrome Category: Medical Plan Otilia is very unfortunate 44 years old female who is survival of lymphoma, the treatment was done with bone marrow transplant, now she is suffering from consequences of graft versus host disease as well as consequences of large doses of steroids which caused osteonecrosis. I offered the patient has spinal cord stimulator [employer] alleviate neuropathic pain in bilateral shoulders as well and is in bilateral hands as well as same device alleviating pain in bilateral lower extremities. Bilateral shoulder x-ray did not demonstrate any new lesions in the bones. She brought me psychological evaluation favorable for the trial and implantation of spinal cord stimulator. I will schedule her for cervical procedure 1st. Patient Instructions: I here by testify that I spent 30 minutes in conversation with this patient answering multiple questions, planning her care, organizing this note. Coding Level of Care Code Est Pt Level 4 (24845) Diagnoses Osteoarthritis of shoulders, bilateral M19.011; M19.012 Osteonecrosis of shoulder region M87.9 Complex regional pain syndrome i of upper limb, bilateral G90.513 Chemotherapy-induced neuropathy G62.0; T45.1X5A Mfhfh-jlcgwq-qezu disease D89.813 Chronic pain syndrome G89.4
[2025-03-12 11:07] VITALS: BP 129/81; PULSE 80; RESP 16; O2SAT 97; BMI 39.4
== END 2025-03-12 11:59 | disposition home or self-care (01) ==
LOC: HO.PMC 11:00
PROVIDERS: PCP Nurse Practitioner Family; Visit Provider Anesthesiology
DX: D89.813 Graft-versus-host disease, unspecified (principal); M87.9 Osteonecrosis, unspecified; M19.011 Primary osteoarthritis, right shoulder; M19.012 Primary osteoarthritis, left shoulder; G89.4 Chronic pain syndrome; G90.513 Complex regional pain syndrome I of upper limb, bilateral; G62.0 Drug-induced polyneuropathy; T45.1X5A Adverse effect of antineoplastic and immunosuppressive drugs, initial encounter
CPT/HCPCS: 99214

== ENCOUNTER → 2025-03-12 10:59 | Outpatient (BNVA) | payer MEDICARE, MEDICAID, SELFPAY | PROVIDERS: PCP Nurse Practitioner Family; Visit Provider Anesthesiology | DX: G89.4 Chronic pain syndrome (principal); M19.011 Primary osteoarthritis, right shoulder; M19.012 Primary osteoarthritis, left shoulder; M87.9 Osteonecrosis, unspecified; G90.513 Complex regional pain syndrome I of upper limb, bilateral; G62.0 Drug-induced polyneuropathy; D89.813 Graft-versus-host disease, unspecified | CPT/HCPCS: 99212 ==